=== PATIENT | male | born 1950 | race Caucasian/White ===

== ENCOUNTER 2021-08-29 11:56 | Outpatient (CLI) | payer MEDICARE, BC, SELFPAY ==
[2021-08-29 19:26] LABS: Potassium* 3.3 mmol/L (3.6-5.1)
== END 2021-08-29 11:57 | disposition home or self-care (01) ==
LOC: LONREF 11:57
PROVIDERS: PCP Family Medicine; Visit Provider Family Medicine
DX: E87.6 Hypokalemia (principal)
CPT/HCPCS: 84132

== ENCOUNTER 2021-09-16 07:51 | Outpatient (RCR) | payer MEDICARE, BC, SELFPAY ==
[2021-09-12 10:55] LABS: Sodium* 141 mmol/L (135-149)
[2021-09-12 10:56] LABS: Alanine Aminotransferase* 42 U/L (4-50); Albumin* 4.1 g/dL (3.3-5.0); Alkaline Phosphatase* 64 U/L (40-150); Aspartate Amino Transferase* 38 U/L (12-35); Bilirubin Total* 0.6 mg/dL (0.1-1.5); Blood Urea Nitrogen* 25 mg/dL (7-30); Calcium* 9.5 mg/dL (8.4-10.6); Carbon Dioxide* 33 mmol/L (20-32); Chloride* 100 mmol/L (96-114); Creatinine* 1.2 mg/dL (0.5-1.5); Estimated Glomerular Filt Rate 64.65; Glucose* 108 mg/dL (60-115); Potassium* 2.9 mmol/L (3.6-5.1); Total Protein* 6.8 g/dL (6.0-8.3)
[2021-09-12 12:01] LABS: PSA Diagnostic* 0.37 ng/mL (0.10-4.00)
--- NOTE | 2021-09-12 17:41 | ONC.NURNOTE ---
Addendum entered and electronically signed by Kimberlee Yung APRN 09/13/21 10:51: Patient and called back this am after receiving message. Pt denies muscle cramps, muscle weakness, or irregular heart beat. They confirm he is taking potassium 20 meq daily. They were instructed to call Dr. Cho, PCP, for guidance on additional potassium doses and increase intake of potassium rich foods. They state understanding. Original Note: Dr. George ordered labs and noted was a critically low potassium. Dr. George gone for day so message left on patients voicemail to follow up with primary MD since he has had this problem recently and Dr. Cho and patient have been working on it.
[2021-09-16 14:11] LABS: Potassium* 3.1 mmol/L (3.6-5.1)
--- NOTE | 2021-09-24 14:41 | URNOTE ---
Request received for prior authorization of Ena [id number]. Patient carries Medicare as primary insurance. Per [email or web address] LCD [id number] no prior authorization is required for Ena. Services are based on medical necessity and follows Medicare guidelines.
== END 2021-09-29 23:59 | disposition home or self-care (01) ==
LOC: CCIC 07:51
PROVIDERS: PCP Family Medicine; Visit Provider Internal Medicine
DX: C61 Malignant neoplasm of prostate (principal)
CPT/HCPCS: 36415; 80053; 84132; 84153; 99202; 99205

== ENCOUNTER 2021-09-26 09:21 | Outpatient (CLI) | payer MEDICARE, BC, SELFPAY ==
[2021-09-26 13:50] LABS: Chloride* 106 mmol/L (96-114); Potassium* 3.4 mmol/L (3.6-5.1); Sodium* 144 mmol/L (135-149)
[2021-09-26 13:52] LABS: Creatinine* 1.1 mg/dL (0.5-1.5); Estimated Glomerular Filt Rate 72 ml/min
[2021-09-26 13:53] LABS: Blood Urea Nitrogen* 24 mg/dL (7-30); Calcium* 8.9 mg/dL (8.4-10.6); Carbon Dioxide* 30 mmol/L (20-32); Glucose* 124 mg/dL (60-115)
== END 2021-09-26 09:22 | disposition home or self-care (01) ==
LOC: LONREF 09:22
PROVIDERS: PCP Family Medicine; Visit Provider Internal Medicine Medical Oncology
DX: C61 Malignant neoplasm of prostate (principal); E87.6 Hypokalemia
CPT/HCPCS: 80048

== ENCOUNTER 2021-10-21 09:14 | Outpatient (CLI) | payer MEDICARE, BC, SELFPAY ==
[2021-10-21 14:51] LABS: Chloride* 106 mmol/L (96-114)
[2021-10-21 14:52] LABS: Potassium* 3.2 mmol/L (3.6-5.1); Sodium* 146 mmol/L (135-149)
[2021-10-21 14:55] LABS: Blood Urea Nitrogen* 23 mg/dL (7-30); Calcium* 8.7 mg/dL (8.4-10.6); Carbon Dioxide* 32 mmol/L (20-32); Creatinine* 1.2 mg/dL (0.5-1.5); Estimated Glomerular Filt Rate 64 ml/min; Glucose* 124 mg/dL (60-115)
== END 2021-10-21 09:15 | disposition home or self-care (01) ==
LOC: LONREF 09:16
PROVIDERS: PCP Family Medicine; Visit Provider Internal Medicine Medical Oncology
DX: C61 Malignant neoplasm of prostate (principal); E87.6 Hypokalemia
CPT/HCPCS: 80048

== ENCOUNTER 2021-10-28 09:22 | Outpatient (CLI) | payer MEDICARE, BC, SELFPAY ==
[2021-10-28 15:18] LABS: Chloride* 106 mmol/L (96-114); Potassium* 3.2 mmol/L (3.6-5.1); Sodium* 144 mmol/L (135-149)
[2021-10-28 15:21] LABS: Blood Urea Nitrogen* 24 mg/dL (7-30); Carbon Dioxide* 33 mmol/L (20-32); Creatinine* 1.2 mg/dL (0.5-1.5); Estimated Glomerular Filt Rate 64 ml/min; Glucose* 141 mg/dL (60-115)
[2021-10-28 15:22] LABS: Calcium* 8.8 mg/dL (8.4-10.6)
== END 2021-10-28 09:23 | disposition home or self-care (01) ==
PROVIDERS: PCP Family Medicine; Visit Provider Internal Medicine Medical Oncology
DX: C61 Malignant neoplasm of prostate (principal); E87.6 Hypokalemia
CPT/HCPCS: 80048

== ENCOUNTER 2021-11-05 09:29 | Outpatient (CLI) | payer MEDICARE, BC, SELFPAY ==
[2021-11-05 14:26] LABS: Albumin* 3.9 g/dL (3.3-5.0)
[2021-11-05 14:27] LABS: Chloride* 105 mmol/L (96-114); Potassium* 3.1 mmol/L (3.6-5.1); Sodium* 145 mmol/L (135-149)
[2021-11-05 14:29] LABS: Aspartate Amino Transferase* 23 U/L (12-35); Bilirubin Total* 0.6 mg/dL (0.1-1.5); Carbon Dioxide* 30 mmol/L (20-32); Creatinine* 1.4 mg/dL (0.5-1.5); Estimated Glomerular Filt Rate 53 ml/min
[2021-11-05 14:30] LABS: Alanine Aminotransferase* 22 U/L (4-50); Alkaline Phosphatase* 92 U/L (40-150); Blood Urea Nitrogen* 26 mg/dL (7-30); Calcium* 8.9 mg/dL (8.4-10.6); Glucose* 251 mg/dL (60-115); Total Protein* 6.6 g/dL (6.0-8.3)
[2021-11-05 14:55] LABS: PSA Diagnostic* < 0.06 ng/mL (0.10-4.00)
== END 2021-11-05 09:30 | disposition home or self-care (01) ==
LOC: LONREF 09:29
PROVIDERS: PCP Family Medicine; Visit Provider Clinical Nurse Specialist
DX: C61 Malignant neoplasm of prostate (principal)
CPT/HCPCS: 80053; 84153

== ENCOUNTER 2021-11-18 09:19 | Outpatient (CLI) | payer MEDICARE, BC, SELFPAY ==
[2021-11-18 14:15] LABS: Chloride* 109 mmol/L (96-114)
[2021-11-18 14:16] LABS: Potassium* 3.1 mmol/L (3.6-5.1); Sodium* 143 mmol/L (135-149)
[2021-11-18 14:18] LABS: Estimated Glomerular Filt Rate 80 ml/min
[2021-11-18 14:19] LABS: Blood Urea Nitrogen* 22 mg/dL (7-30); Calcium* 8.5 mg/dL (8.4-10.6); Carbon Dioxide* 28 mmol/L (20-32); Glucose* 212 mg/dL (60-115)
== END 2021-11-18 09:20 | disposition home or self-care (01) ==
LOC: LONREF 09:19
PROVIDERS: PCP Family Medicine; Visit Provider Internal Medicine Medical Oncology
DX: C61 Malignant neoplasm of prostate (principal); E87.6 Hypokalemia
CPT/HCPCS: 80048

== ENCOUNTER 2021-12-02 09:31 | Outpatient (CLI) | payer MEDICARE, BC, SELFPAY | END 2021-12-02 09:32 | disposition home or self-care (01) | PROVIDERS: PCP Family Medicine; Visit Provider Family Medicine | DX: E87.6 Hypokalemia (principal) | CPT/HCPCS: 84132 ==

== ENCOUNTER 2021-12-09 09:41 | Outpatient (CLI) | payer MEDICARE, BC, SELFPAY ==
[2021-12-09 13:57] LABS: Chloride* 106 mmol/L (96-114); Potassium* 3.2 mmol/L (3.6-5.1); Sodium* 144 mmol/L (135-149)
[2021-12-09 13:59] LABS: Creatinine* 1.1 mg/dL (0.5-1.5); Estimated Glomerular Filt Rate 71 ml/min
[2021-12-09 14:00] LABS: Blood Urea Nitrogen* 20 mg/dL (7-30); Calcium* 9.2 mg/dL (8.4-10.6); Carbon Dioxide* 30 mmol/L (20-32); Glucose* 226 mg/dL (60-115)
== END 2021-12-09 09:42 | disposition home or self-care (01) ==
PROVIDERS: PCP Family Medicine; Visit Provider Family Medicine
DX: E87.6 Hypokalemia (principal)
CPT/HCPCS: 80048

== ENCOUNTER 2021-12-18 15:53 | Outpatient (REF) | payer MEDICARE, BC, SELFPAY ==
--- OUTSIDE RECORDS SUMMARY | 2021-12-18 15:58 | XMS_ITS | Encounter Summary ---
:1950 Author Organization [facility] Address [address] [place] [address] Care Team Providers Name Role Phone Elsewhere, Pcp Primary Care Provider Unavailable Encounter Details Date Type Department Care Team Description 09/16/2021 Hospital Encounter Department of Radiation La George, Oncology in [facility] [address] [facility] [address] [place] [address] [id number] [phone] Social History Tobacco Use Types Packs/Day Years Used Date Smoking Tobacco: Former Cigarettes 0 0 Quit : 01/30/1979 Smokeless Tobacco: Never Alcohol Use Standard Drinks/Week Comments Not Currently 0 (1 standard drink = 0.6 oz pure alcoho l) Alcohol Habits Answer Date Recorded How often do you have a drink containing alcohol? Monthly or less 06/27/2021 How many drinks containing alcohol do you have on a 1 or 2 06/27/2021 typical day when you are drinking? How often do you have six or more drinks on one Never 06/27/2021 occasion? Social Isolation Answer Date Recorded In a typical week, how many times do you talk on Patient ref used 06/27/2021 the phone with family, friends, or neighbors? How often do you get together with friends or Patient refuse d 06/27/2021 relatives? How often do you attend yarsani or hinduism 1 to 4 times per year 06/27/2021 services? Do you belong to any clubs or organizations such No 06/27/2021 as yarsani groups, unions, fraternal or athletic groups, or school groups? How often do you attend meetings of the clubs or Patient ref used 06/27/2021 organizations you belong to? Are you now , , , 06/27/2021 , never or living with a partner? Physical Activity Answer Date Recorded On average, how many days per week do you engage in moderate to 2 days 06/27/2021 strenuous exercise (like walking fast, running, jogging, dancing, swimming, biking, or other activities that cause a light or heavy sweat)? On average, how many minutes do you engage in exercise at is 20 min 06/27/2021 level? Stress Answer Date Recorded Do you feel stress - tense, restless, nervous, or anxious, N ot at all 06/27/2021 or unable to sleep at night because your mind is troubled all the time - these days? Financial Resource Strain Answer Date Recorded How hard is it for you to pay for the very basics like Not h charlette at all 06/27/2021 food, housing, medical care, and heating? Intimate Partner Violence Answer Date Recorded Within the last year, have you been afraid of your partner o r No 06/27/2021 ex-partner? Within the last year, have you been humiliated or emotionall y No 06/27/2021 abused in other ways by your partner or ex-partner? Within the last year, have you been kicked, hit, slapped, or No 06/27/2021 otherwise physically hurt by your partner or ex-partner? Within the last year, have you been raped or forced to have any No 06/27/2021 kind of sexual activity by your partner or ex-partner? Food Insecurity Answer Date Recorded Within the past 12 months, you worried that your food would Never true 06/27/2021 run out before you got money to buy more. Within the past 12 months, the food you bought just didn't N ever true 06/27/2021 last and you didn't have money to get more. Transportation Needs Answer Date Recorded In the past 12 months, has lack of transportation kept you f rom No 06/27/2021 medical appointments or from getting medications? In the past 12 months, has lack of transportation kept you f rom No 06/27/2021 meetings, work, or getting things needed for daily living? Housing Stability Answer Date Recorded In the last 12 months, was there a time when you were not ab le No 06/27/2021 to pay the mortgage or rent on time? In the last 12 months, how many places have you lived? 1 06/27/2021 In the last 12 months, was there a time when you did not hav e a No 06/27/[address] or slept in a retirement (including now)? Education Answer Date Recorded What is the highest level of school Associate degree: [employer] program 06/27/2021 you have completed or the highest degree you have received? Sex Assigned at Date Recorded Male 06/27/2021 1:28 PM CDT documented as of this encounter Medications at Time of Discharge Medication Sig Dispensed Refills Start Date End Date abiraterone (ZYTIGA) 250 Take 4 tablets 120 tablet 11 08/19/ 022 mg tabletIndications: (1,000 mg total) by Primary Malignant Neoplasm mouth daily. Take on Of Prostate (HCC) an empty stomach (1 hour before or 2 hours after food). acetaminophen (TYLENOL) Take 2 tablets 0 02/01/20 21 500 mg tablet (1,000 mg total) by mouth every 6 (six) hours as needed for pain. amLODIPine (NORVASC) 10 mg Take 10 mg by mouth 0 05/18/2020 tablet daily. aspirin [address] tablet Hold for one week 0 01/31 post-surgery bicalutamide (CASODEX) 50 Take 1 tablet (50 mg 21 tablet 0 07/30/2021 mg tablet total) by mouth daily. Take at the same time everyday. Take with or without food. blood sugar diagnostic 2 times daily. 0 (Accu-Chek Guide test strips) strips cholecalciferol, vitamin Daily 0 D3, 25 mcg (1,000 Unit) tablet diclofenac sodium Twice A Day as 0 05/18/2020 (VOLTAREN) 50 mg EC tablet needed lancets 2 times daily. 0 05/22/2020 lisinopriL Take 40 mg by mouth 0 05/18/2020 (PRINIVIL,ZESTRIL) 40 mg at bedtime. tablet metoprolol tartrate Twice A Day 0 05/18/2020 (LOPRESSOR) 50 mg tablet predniSONE (DELTASONE) 5 Take 1 tablet (5 mg 90 tablet 3 mg tabletIndications: total) by mouth Primary Malignant Neoplasm daily. Of Prostate (HCC) triamterene-hydroCHLOROthi Take 1 tablet by 0 12/2020 azide (MAXZIDE-25) 37.5-25 mouth daily. mg per tablet documented as of this encounter Plan of Treatment Upcoming Encounters Date Type Specialty Care Team Description 12/23/2021 Appointment Radiation Oncology Low George M.D. [address] [place], [place] [phone] (Wo rk) documented as of this encounter Visit Diagnoses Not on filedocumented in this encounter Care Teams Hospital Account Liaison Relationship Specialty Start Date End Date Elsewhere, Pcp PCP - General Family Medicine 01/30/21 documented as of this encounter
--- OUTSIDE RECORDS SUMMARY | 2021-12-18 15:58 | XMS_ITS | Encounter Summary ---
:1950 Author Organization [facility] Address [address] [place] [address] Care Team Providers Name Role Phone Elsewhere, Pcp Primary Care Provider Unavailable Encounter Details Date Type Department Care Team Description 09/18/2021 Hospital Encounter Department of Radiation La George, Oncology in [facility] [address] [facility] [address] [place] [phone] Social History Tobacco Use Types Packs/Day Years [...] 06/27/2021 relatives? How often do you attend yazdanism or restoration 1 to 4 times per year 06/27/2021 services? Do you belong to any clubs or organizations such No 06/27/2021 as yazdanism groups, unions, fraternal or athletic groups, or [...] place to sleep or slept in a longterm (including now)? Education Answer Date Recorded What is the highest level of school Associate degree: [email or web address] program 06/27/2021 you have completed or the [...] Radiation Oncology Low George M.D. [address] [place], [place] [phone] (Wo rk) documented as of this encounter Visit Diagnoses Not on filedocumented in this encounter Care Teams Bounty Hunter Relationship Specialty Start Date End Date Elsewhere, Pcp PCP - General Family Medicine 01/30/21 documented as of this encounter
--- OUTSIDE RECORDS SUMMARY | 2021-12-18 15:58 | XMS_ITS | Encounter Summary ---
:1950 Author Organization [facility] Address [address] [place] [address] Care Team Providers Name Role Phone Elsewhere, Pcp Primary Care Provider Unavailable Encounter Details Date Type Department Care Team Description 09/17/2021 Hospital Encounter Department of Radiation La George, Oncology in [facility] [address] [facility] [address] [place] [phone] Social History Tobacco Use Types Packs/Day Years [...] 06/27/2021 relatives? How often do you attend adventism or yazidi 1 to 4 times per year 06/27/2021 services? Do you belong to any clubs or organizations such No 06/27/2021 as adventism groups, unions, fraternal or athletic groups, or [...] place to sleep or slept in a jail (including now)? Education Answer Date Recorded What is the highest level of school Associate degree: [employer] program 06/27/2021 you have completed or the [...] Radiation Oncology Low George M.D. [address] [place], [place] [phone] (Wo rk) documented as of this encounter Visit Diagnoses Not on filedocumented in this encounter Care Teams Rice Drier Operator Relationship Specialty Start Date End Date Elsewhere, Pcp PCP - General Family Medicine 01/30/21 documented as of this encounter
--- OUTSIDE RECORDS SUMMARY | 2021-12-18 15:58 | XMS_ITS | Clinical Summary ---
:1950 Author Organization [id number] [place] [address] Care Team Providers Name Role Phone Gilberto Cho MD Primary Care Provider Allergies No known active allergies Medications Medication Sig Dispensed Refills Start Date End Date Status amLODIPine (NORVASC) 10 Take 10 mg by 0 05/18/2020 Active mg tablet mouth once daily. aspirin (ECOTRIN) 81 mg Daily 0 Active enteric coated tablet Accu-Chek Guide test 2 times daily. 0 05/22/2020 Active strips strip lisinopriL (PRINIVIL; Take 40 mg by 0 05/18/2020 Active ZESTRIL) 40 mg tablet mouth once daily. metoprolol tartrate Twice A Day 0 05/18/2020 Active (LOPRESSOR) 50 mg tablet triamterene-hydrochloroth Take 1 Tablet 0 05/09/2020 Active iazide, 37.5-25 mg, by mouth once (MAXZIDE-25) 37.5-25 mg daily. tablet Accu-Chek Softclix 2 times daily. 0 05/22/2020 Active Lancets diclofenac enteric coated Twice A Day as 0 Active (VOLTAREN) 50 mg tablet needed cholecalciferol (VITAMIN Daily 0 Active D3) 1,000 unit tablet Active Problems Problem Noted Date Adenomatous colon polyp 03/15/2012 Overview: Colonoscopy 03/2012 polyp repeat in 5 yea rs Colonoscopy 03/2017 polyp, repeat in 5 ye ars Immunizations Name Administration Dates Next Due Zoster (Zostavax-ZVL, live) 11/02/2013 Social History Tobacco Use Types Packs/Day Years Used Date Former Smoker Cigarettes Smokeless Tobacco: Never Used Tobacco Cessation: Counseling Given: Yes Alcohol Use Standard Drinks/Week Comments Not Currently 0 (1 standard drink = 0.6 oz pure alcoho l) Sex Assigned at Date Recorded Not on file Obstetrics History Last Filed Vital Signs Vital Sign Reading Time Taken Comments Blood Pressure 144/86 07/02/2020 9:32 AM CDT Pulse 53 07/02/2020 9:32 AM CDT Temperature - - Respiratory Rate 16 07/02/2020 9:32 AM CDT Oxygen Saturation 99% 07/02/2020 9:32 AM CDT Inhaled Oxygen - - Concentration Weight 89.6 kg (197 lb 9.6 07/02/2020 9:32 AM Pt weighe d with shoes oz) CDT on. Height - - Body Mass Index - - Plan of Treatment Health Maintenance Due Date Last Done Comments COVID-19 vaccine series (#1) [birth year]13/1950 Tdap 1960 Depression screening for age 12+ 1961 BMI (ht and wt on same day) for 10/12/1967 age 18+ Hepatitis C screening for age 0810/12/1967 18-79 Tetanus booster 1969 Lipids for age 45-75 1994 Zoster (shingles) series for age 1012/28/2013 11/02/2013 50+ (2 of 3) Medicare Wellness for age 65+ 2014 Pneumococcal series for age 65+ (1 2014 - PCV) Influenza for age 65+ 10/31/2021 Colonoscopy through age 75 03/17/2022 03/17/2017, 8, 02/17/2017, Additional history exists Results Not on filefrom Last 3 Months Insurance Payer Benefit Plan / Subscriber ID Effective Dates Phone Addre ss Type Group BLUE CROSS MR BLUE CROSS [id number] 2016-Presen [address] [address] [facility], [place] MR PB ONLY [phone] (Home) [place] [id number] Care Teams Oilseed Meat Presser Relationship Specialty Start Date End Date Gilberto Cho MD PCP - General Family Practice 03/17/[address] [place] [address]
--- OUTSIDE RECORDS SUMMARY | 2021-12-18 15:58 | XMS_ITS | Encounter Summary ---
:1950 Author Organization [facility] Address [address] [place] [id number] Care Team Providers Name Role Phone Elsewhere, Pcp Primary Care Provider Unavailable Reason for Referral Radiation Therapy (Routine) - Authorized Specialty Diagnoses / Procedures Referred By Contact Refer red To Contact Diagnoses Primary Malignant Neoplasm Of Prostate (HCC) [place] George M.D. [facility] Procedures Management Visit [address] [place] [phone] Referral ID Status Reason Start Date Expiration Date Visits V isits Requested Authorized [id number] Authorized 07/25/2021 07/25/2022 10 10 Reason for Visit Radiation Therapy (Routine) - Authorized Specialty Diagnoses / Procedures Referred By Contact Refer red To Contact Diagnoses Primary Malignant Neoplasm Of Prostate (HCC) London George M.D. [facility] Procedures Management Visit [address] [place] [address] [phone] Referral ID Status Reason Start Date Expiration Date Visits V isits Requested Authorized [id number] Authorized 07/25/2021 07/25/2022 10 10 Encounter Details Date Type Department Care Team Description 09/11/2021 - Hospital Encounter Department of [place], Primary Malignant 09/12/2021 Radiation Oncology [place] Costello M.D. Neoplasm Of Prostate in [place], [address] [facility] (HCC) [place], [place] [address] [facility] [address] [place], [place] [phone] (Work) [phone] Social History Tobacco Use Types Packs/Day Years [...] 06/27/2021 relatives? How often do you attend religious or voodoo 1 to 4 times per year 06/27/2021 services? Do you belong to any clubs or organizations such No 06/27/2021 as religious groups, unions, fraternal or athletic groups, or [...] minutes do you engage in exercise at th is 20 min 06/27/2021 level? Stress Answer [...] place to sleep or slept in a halfway (including now)? Education Answer Date Recorded What is the highest level of school Associate degree: academ [employer] program 06/27/2021 you have completed or the highest degree you have received? 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 Take on Of Prostate (HCC) an empty stomach (1 hour before or 2 hours after food). amLODIPine (NORVASC) 10 mg Take 10 mg [...] (MAXZIDE-25) 37.5-25 mouth daily. mg per tablet acetaminophen (TYLENOL) Take 2 tablets 0 02/01/20 21 500 mg tablet (1,000 mg total) by mouth every 6 (six) hours as needed for pain. documented as of this encounter Progress Notes [place] George M.D. - 09/11/2021 10:00 AM CDT SUBJECTIVE REASON FOR VISIT Evaluation for side effects while receiving radiation treatment for 1. Primary Malignant Neoplasm Of Prostate (HCC) SUPERVISED BY: Dr. George HISTORY OF PRESENT ILLNESS Mr. Cory Barton is a 70-year-old male with persistently positive PSA following prostatectomy. ??He is now undergoing salvage radiotherapy with a long course of ADT (aiming for 18-36 months ofandrogen deprivation therapy).? Treatment Course: 1xProstBed Plan ID Fractions Dose / Fraction (cGy) Dose Treated (cGy) Dose Planned (cGy) First Treatment Last Treatment Elapsed Days [id number] 200 5000 5000 08/05/2021 09/09/2021 35 [id number] 09/10/2021 09/11/2021 1 Treatment Site Summary [id number] 08/05/2021 09/11/2021 37 Course Summary 08/05/2021 09/11/2021 37 The patient was seen and examined today with Dr. George. The patient reports doing well overall. Nocturia is occurring 4 times at night. He has not started Ibuprofen at bedtime. He denies diarrhea, dysuria, hematuria or rectal bleeding. He has not started abiraterone yet. He has been taken off of spironolactone by his primary care provider due to potential interaction with abiraterone. PATIENT REPORTED SYMPTOM SCREEN FATIGUE (Scale: 0 = no fatigue; 10 = worst fatigue you can imagine): 0 PAIN (Scale: 0 = no pain; 10 = worst pain you can imagine): 0 OVERALL QUALITY OF LIFE (Scale: 0 = as bad as can be; 10 = as good as can be): 10 OBJECTIVE Temp 36.4 ??C (Temporal) Wt 86.5 kg BMI 30.29 kg/m?? PHYSICAL EXAM General: Alert and oriented in no apparent distress. ASSESSMENT / PLAN #1 Stage IIIC (pT3a, pN0, cM0, PSA: 5.3, Grade Group: 5) adenocarcinoma the prostate, status post margin negative prostatectomy on February 10, 2021 with persistently positive PSA of 1.9 ng/mL most recently on July 04, 2021?? #2 Choline PET/CT scan with choline avid right mid and distal external iliac lymph nodes and distal left external iliac lymph nodes?? #3 Androgen deprivation therapy initiated with bicalutamide 50 mg daily for 3 weeks on July 30, 2021,a leuprolide 22.5 mg injection??on August 05, 2021 at [facility] #4 Stress urinary incontinence following prostatectomy, scant in amount?? #5 Erectile dysfunction preceding prostatectomy?? #6 Salvage intensity modulated radiotherapy to prostate fossa, PET + pelvic lymph nodes initiated onAugust 05, 2021; anticipated date of completion is on September 18, 2021 #7 Osteopenia on bone density scan from August 07, 2021 #[address] Arnold on August 08, 2021 The patient is tolerating radiation treatment well overall. He can trial 1-2 tablets of Ibuprofen atbedtime to help with nocturia. Ibuprofen is to be taken with food to avoid stomach upset. His primary provider, Dr. Cho is managing his hypokalemia. Patient has appointment with Dr. White on September 16 to follow up on abiraterone. He will continue with radiation treatment as planned. Radiation Oncology [place] can be contacted at anytime for any questions or concerns. Signed by: Chey Mcghee R.N. 09/11/2021 10:15 AM CDT I saw and evaluated the patient and participated in the [place] portions of the service. I reviewed the documentation of Chey Mcghee R.N. and agree with the findings and plan. The patient appears well onexam. He will begin low-dose ibuprofen to see if this will help with his nocturia. He will continue with treatment as planned. Signed by: [place] George M.D. 09/12/2021 5:35 PM CDT [facility] [address] [place] [id number] documented in this encounter Plan of Treatment Upcoming Encounters Date Type Specialty Care Team Description 12/23/2021 Appointment Radiation Oncology [place] George M.D. 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
--- OUTSIDE RECORDS SUMMARY | 2021-12-18 15:58 | XMS_ITS | Encounter Summary ---
:1950 Author Organization [facility] Address [address] [place] [address] Care Team Providers Name Role Phone Elsewhere, Pcp Primary Care Provider Unavailable Encounter Details Date Type Department Care Team Description 09/13/2021 Hospital Encounter Department of Radiation [place], Oncology in [facility] [address] [facility] [address] [place] [phone] Social History Tobacco Use Types Packs/Day Years [...] 06/27/2021 relatives? How often do you attend taoism or jewish 1 to 4 times per year 06/27/2021 services? Do you belong to any clubs or organizations such No 06/27/2021 as taoism groups, unions, fraternal or athletic groups, or [...] for the very basics like Not h chalrette at all 06/27/2021 food, housing, medical care, [...] place to sleep or slept in a usp (including now)? Education Answer Date Recorded What is the highest level of school Associate degree: [employer] program 06/27/2021 you have completed or the [...] Radiation Oncology Low George M.D. [address] [place], [place] [phone] (Wo rk) documented as of this encounter Visit Diagnoses Not on filedocumented in this encounter Care Teams Fund Manager Relationship Specialty Start Date End Date Elsewhere, Pcp PCP - General Family Medicine 01/30/21 documented as of this encounter
--- OUTSIDE RECORDS SUMMARY | 2021-12-18 15:58 | XMS_ITS | Encounter Summary ---
:1950 Author Organization [facility] Address [address] [place] [address] Care Team Providers Name Role Phone Elsewhere, Pcp Primary Care Provider Unavailable Reason for Visit Reason Comments Labs Only Encounter Details Date Type Department Care Team Description 11/18/2021 Clinical Communication Department of Elly Cohen Labs Only Oncology in [place], [place] [address] [facility] [address] [place] [phone] Social History Tobacco Use Types Packs/Day Years [...] 06/27/2021 relatives? How often do you attend bahai or temple 1 to 4 times per year 06/27/2021 services? Do you belong to any clubs or organizations such No 06/27/2021 as bahai groups, unions, fraternal or athletic groups, or [...] highest level of school Associate degree: academ [employer] program 06/27/2021 you have completed or the highest degree you have received? Sex Assigned at Date Recorded Male 06/27/2021 1:28 PM CDT documented as of this encounter Miscellaneous Notes Telephone Encounter - Nayely Loza M.S.N., R.N. - 11/19/2021 9:03 AM CDT Labs verified. He is receiving care in [place], Dr. White managing. No further action needed. Telephone Encounter - Elyssa Tinoco - 11/19/2021 7:53 AM CDT Labs have been entered and are ready for review. documented in this encounter Plan of Treatment Upcoming Encounters Date Type Specialty Care Team Description 12/23/2021 Appointment Radiation Oncology [place] George M.D. [address] [place], [place] [phone] (Wo rk) documented as of this encounter Procedures Procedure Name Priority Date/Time Associated Diagnosis Comme nts HEMATOLOGY/ONCOLOGY Routine 11/18/2021 9:28 AM Re sults for this - BLOOD, EXTERNAL CDT procedure are in LAB RESULTS the results section. documented in this encounter Results (ABNORMAL) Hematology/Oncology - Blood, External Lab Results (11/18/2021 9:28 AM CDT) P athologist Signature EXT Sodium 143 135 - 149 OTHER mmol/L (SPECIFY IN TRAFFIC INCIDENT MANAGEMENT MANAGER) EXT Potassium 3.1 (A) 3.6 - 5.1 OTHER (SPECIFY IN TRAFFIC INCIDENT MANAGEMENT MANAGER) EXT Calcium, 8.5 8.4 - 10.6 OTHER Total (SPECIFY IN TRAFFIC INCIDENT MANAGEMENT MANAGER) EXT Creatinine 1.0 0.5 - 1.5 OTHER mg/dL (SPECIFY IN TRAFFIC INCIDENT MANAGEMENT MANAGER) EXT Chloride 109 96 - 114 OTHER (SPECIFY IN TRAFFIC INCIDENT MANAGEMENT MANAGER) EXT BUN (Blood 22 7 - 30 OTHER Urea Nitrogen) (SPECIFY IN TRAFFIC INCIDENT MANAGEMENT MANAGER) Specimen (Source) Anatomical Collection Method Collection Time Re ceived Time Location / / Volume Laterality Blood 11/18/2021 9:28 AM CDT Narrative This result has an attachment that is no t available. Historical Provider LAB BLOOD NON ADD-ON Performing Organization Address City/State/ZIP Code Phon e Number OTHER (SPECIFY IN TRAFFIC INCIDENT MANAGEMENT MANAGER) OTHER (SPECIFY IN TRAFFIC INCIDENT MANAGEMENT MANAGER) N/A documented in this encounter Visit Diagnoses Not on filedocumented in this encounter Care Teams Television Parts Tester Relationship Specialty Start Date End Date Elsewhere, Pcp PCP - General Family Medicine 01/30/21 documented as of this encounter
--- OUTSIDE RECORDS SUMMARY | 2021-12-18 15:58 | XMS_ITS | Encounter Summary ---
:1950 Author Organization [facility] Address [address] [place] [address] Care Team Providers Name Role Phone Elsewhere, Pcp Primary Care Provider Unavailable Encounter Details Date Type Department Care Team Description 09/12/2021 Hospital Encounter Department of Radiation [place], Oncology in [facility] [address] [facility] [address] [place] [phone] Social History Tobacco Use Types Packs/Day Years [...] 06/27/2021 relatives? How often do you attend yazidism or quaker 1 to 4 times per year 06/27/2021 services? Do you belong to any clubs or organizations such No 06/27/2021 as yazidism groups, unions, fraternal or athletic groups, or [...] the highest level of school Associate degree: [employer] program 06/27/2021 you have completed or the [...] Radiation Oncology Low George M.D. 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
--- OUTSIDE RECORDS SUMMARY | 2021-12-18 15:58 | XMS_ITS | Encounter Summary ---
:1950 Author Organization [facility] Address [address] [place] [address] Care Team Providers Name Role Phone Elsewhere, Pcp Primary Care Provider Unavailable Reason for Referral Outpatient (Routine) - Authorized Specialty Diagnoses / Procedures Referred By Contact Refer red To Contact Radiation Oncology [place] George M .D. [facility] [address] [place] [address] Referral ID Status Reason Start Date Expiration Date Visits V isits Requested Authorized [id number] Authorized 09/18/2021 09/18/2022 1 1 Scheduling Instructions Please schedule 2-3 days after H lab a ppointment Radiation Therapy (Routine) - Authorized Specialty Diagnoses / Procedures Referred By Contact Refer red To Contact Diagnoses Primary Malignant Neoplasm Of Prostate (HCC) [place] George M.D. [facility] Procedures Management Visit [address] [place] [address] Referral ID Status Reason Start Date Expiration Date Visits V isits Requested Authorized [id number] Authorized 07/25/2021 07/25/2022 10 10 Reason for Visit Radiation Therapy (Routine) - Authorized Specialty Diagnoses / Procedures Referred By Contact Refer red To Contact Diagnoses Primary Malignant Neoplasm Of Prostate (HCC) [place] George M.D. [facility] [place] [facility] Procedures Management Visit [address] [place] [address] Referral ID Status Reason Start Date Expiration Date Visits V isits Requested Authorized [id number] Authorized 07/25/2021 07/25/2022 10 10 Encounter Details Date Type Department Care Team Description 09/18/2021 Hospital Encounter Department of London George Prostate Specific Antigen Following Treatment For Malignant Cancer Of Prostate (Primary Dx); Radiation Oncology Osmin Costello Primary Malignant Neoplasm Of Prostate ( HCC) in [place], [facility] [address] [place], [place] [address] [facility] [address] [place], [place] [phone] (Work) [phone] Social History Tobacco Use Types Packs/Day Years [...] 06/27/2021 relatives? How often do you attend zoroastrian or yarsani 1 to 4 times per year 06/27/2021 services? Do you belong to any clubs or organizations such No 06/27/2021 as zoroastrian groups, unions, fraternal or athletic groups, or [...] place to sleep or slept in a senior living (including now)? Education Answer Date Recorded What is the highest level of school Associate degree: academ [employer] program 06/27/2021 you have completed or the highest degree you have received? Sex Assigned at Date Recorded Male 06/27/2021 1:28 PM CDT documented as of this encounter Last Filed Vital Signs Vital Sign Reading Time Taken Comments Blood Pressure - - Pulse - - Temperature 37.1 ??C (98.7 ??F) 09/18/2021 10:06 AM CDT Respiratory Rate - - Oxygen Saturation - - Inhaled Oxygen Concentration - - Weight 87.4 kg (192 lb 10.9 oz) 09/18/2021 10:06 AM CDT Height - - Body Mass Index 30.6 01/30/2021 11:48 AM [employer] documented in this encounter Medications at Time [...] Hold for one week 0 01/31 post-surgery blood sugar diagnostic 2 times daily. 0 1 (Accu-Chek Guide test strips) strips cholecalciferol, vitamin [...] Primary Malignant Neoplasm daily. Of Prostate (HCC) acetaminophen (TYLENOL) Take 2 tablets 0 02/01/20 21 500 mg tablet (1,000 mg total) by mouth every 6 (six) hours as needed for pain. bicalutamide (CASODEX) 50 Take 1 tablet (50 mg 21 tablet 0 07/30/2021 mg tablet total) by mouth daily. Take at the same time everyday. Take with or without food. triamterene-hydroCHLOROthi Take 1 tablet by 0 12/2020 azide (MAXZIDE-25) 37.5-25 mouth daily. mg per tablet documented as of this encounter Progress Notes London George M.D. - 09/18/2021 10:00 AM CDT SUBJECTIVE REASON FOR VISIT Evaluation for side effects while receiving radiation treatment for 1. Primary Malignant Neoplasm Of Prostate (HCC) SUPERVISED BY: Dr. George HISTORY OF PRESENT ILLNESS Mr. Cory Barton is a 70-year-old male with persistently positive PSA following prostatectomy. He is now undergoing salvage radiotherapy with a long course of ADT (aiming for 18-36 months of androgen deprivation therapy). Treatment Course: 1xProstBed Plan ID Fractions Dose / Fraction (cGy) Dose Treated (cGy) Dose Planned (cGy) First Treatment Last Treatment Elapsed Days [id number] 200 5000 5000 08/05/2021 09/09/2021 35 [id number] 200 1400 1400 09/10/2021 09/18/2021 8 Treatment Site Summary [id number] 08/05/2021 09/18/2021 44 Course Summary 08/05/2021 09/18/2021 44 Oncology History Overview Note January 30, 2021: Robot-assisted, laparoscopic, bilateral non-nerve sparing radical prostatectomy and bilateral pelvic lymphadenectomy. Valencia 4+5, pT3a N0 R0. Prep PSA 5.3 July 02, 2021: PSA 1.9. PET-CT choline avid mid right external iliac and distal left external iliac lymph node, and in the distal right external iliac region. End of June Casodex started followed by leuprolide early July Primary Malignant Neoplasm Of Prostate (HCC) 07/08/2019 Other 07/08/2019: PSA 3.88 ng/mL 05/16/2020: PSA 5.35 ng/mL 08/10/2020 Other Urology consultation with Dr. Oseas Oswald. Digital rectal examination demonstrated that the prostate was approximately 50-60 g in size, smooth in consistency, symmetrical, nontender. There was a prostate nodule present at the left apex, raised and firm, measuring 8-10 mm. Seminal vesicles were not p alpable. Recommended proceeding with an MRI followed by a biopsy. 08/17/2020 Imaging MRI of the prostate demonstrated a prostate volume of 79 cc. There was an approximately 22 x 13 x 15 mm T2 hypointense lesion in the left posterior lateral mid apical peripheral zone, suspicious for clinically significant prostate cancer (PI-RADS 5). Marked nodular hypertrophy without a definite suspi cious lesion in the transition zone. Broad capsular contact of the left peripheral zone lesion with capsular bulging and irregularity, worrisome for extracapsular extension and neurovascular bundle involvement. No seminal vesicle invasion. No enlarged pelvic lymph nodes. No suspicious bone lesions. 08/30/2020 Biopsy/Pathology Prostate biopsy was performed by Dr. Oswald. Prostate volume was 87.3 cc. Hypoechoic lesion was identified in the peripheral zone at the left apex, extended slightly on the right. PATHOLOGY: A. Right prostate core biopsies: Benign prostate tissue. B. Left prostate core biopsies: Prostate adenocarcinoma, Douglas grade 3 + 3 (grade group 1), less than 1 mm in greatest linear dimension involving 1 of 6 cores / core-like fragments and involving lessthan 5% of the submitted tissue. C. Left apex prostate core biopsies: Prostate adenocarcinoma, Douglas grade 3 + 4 (grade group 2), 2mm in greatest linear dimension involving 2 of 4 cores and involving less than 5% of the submitted tissue. 01/30/2021 Surgery and Procedures Robotic-assisted radical prostatectomy and bilateral pelvic dissection was performed by Dr. Lenny Gaspar. PATHOLOGY: A. Lymph nodes, bilateral pelvic, dissection: Multiple (6) lymph nodes are negative for metastatic carcinoma. B. Prostate gland, radical prostatectomy: Adenocarcinoma (Douglas pattern 4+5, grade group 5) is identified forming a dominant mass (3.1 x 1.9 x 1.8 cm) in the left apex and posterior prostate. The tumor is not confined to the prostate with extraprostatic extension into soft tissue in the region of the left posterior prostate. The seminal vesicles are negative for tumor. All surgical margins are negative for tumor. SYNOPTIC REPORT: Prostate Procedure: Radical prostatectomy Prostate Size: 108 gram, 6.2 (S-I) x 6.4 (A-P) x 6.6 (R-L) cm Histologic Type: Acinar adenocarcinoma Histologic Grade Grade Group and Valencia Score Grade Group 3 (Valencia Score 4+5=9) Minor Tertiary Pattern 5 (less than 5%): Not applicable Percentage of Pattern 4 in Valencia score 7: Not applicable Intraductal Carcinoma (IDC): Present Cribriform Glands: Present Treatment Effect: No known pre-surgical therapy Tumor Quantitation Greatest dimension of dominant nodule: 31 mm Location: Left posterior Extraprostatic Extension: Present, non-focal Urinary Bladder Neck Invasion: Not identified Seminal Vesicle Invasion: Not identified Lymphovascular Invasion: Not identified Margins: All margins negative for invasive carcinoma. Regional Lymph Nodes Status All Regional Lymph Nodes Negative for Tumor Number of Lymph Nodes Examined: 6 Distant Metastasis. Distant Site(s) Involved: Not applicable Pathologic Staging (AJCC, 8th edition) TNM Descriptors: Not applicable pT Category: pT3a pN Category: pN0 pM Category: Not applicable Additional Pathologic Findings: None identified 06/27/2021 Other 06/27/2021: PSA 1.9 ng/mL 07/02/2021: PSA 1.9 ng/mL 07/02/2021 Imaging C11 choline PET-CT scan demonstrated extruded tracer within the bladder, but no obvious abnormal uptake in the prostatectomy bed. Small mildly choline avid lymph nodes in the mid right external iliac and distal left external iliac regions, concerning for metastases. Additional more intense choline avid distal external right iliac lymph nodes. No other choline avid lymph nodes in the abdomen or pelvis. No choline avid bone lesions identified. MRI demonstrated postoperative changes of prostatectomy. Mild increased perfusion to the left of theurethra without a discrete lesion identified, nonspecific. Indeterminate/equivocal for local recurrence. Negative for metastatic lymph nodes. Negative for metastatic bone lesions. 07/22/2021 Other Radiation Oncology consultation with Dr. Huber Newman who recommended a combined approach of salvage radiotherapy (to the prostatic fossa and regional pelvic lymph nodes) plus long-term androgen deprivation therapy. His inclination was to recommend a minimum of 3 years (or possibly indefinite period of time) of androgen deprivation therapy. He also discussed that an additional systemic treatment such as abiraterone is likely indicated and the patient will need a referral to Medical Oncology. The patient would like to pursue radiotherapy in [place]. A referral was placed. He left the arrangementof ADT and referral to Medical Oncology to Dr. George. 08/05/2021 - Radiation Therapy Radiation Therapy Treatment Details (Noted on 07/25/2021) Site: Prostate - Bed Technique: No technique specified Goal: Curative Planned Treatment Start Date: 08/05/2021 08/07/2021 Imaging DEXA bone density scan demonstrated osteopenia. T-score of -1.9 in the right and left femoral neck. The patient was seen and examined today with Dr. George. The patient reports doing well overall. Nocturia is occurring 4 times at night. Baseline nocturia is2 times a night. He trialed taking 400 mg of Ibuprofen once at bedtime and did not notice improvement in nocturia. Diarrhea is minimal in nature. He denies dysuria, urinary urgency, incontinence, urinary retention, hot flashes, fatigue, hematuria or rectal bleeding. He has not started abiraterone yet due to continued issues with potassium level. He has been taken off of spironolactone [...] good as can be): 10 OBJECTIVE Temp 37.1 ??C (Temporal) Wt 87.4 kg BMI 30.60 kg/m?? PHYSICAL EXAM General: Alert and oriented in no apparent distress. ASSESSMENT / PLAN #1 Stage IIIC (pT3a, pN0, cM0, PSA: 5.3, Grade Group: 5) adenocarcinoma the prostate, status post margin negative prostatectomy on February 10, 2021 with persistently positive PSA of 1.9 ng/mL most recently on July 04, 2021 #2 Choline PET/CT scan with choline avid right mid and distal external iliac lymph nodes and distal left external iliac lymph nodes #3 Androgen deprivation therapy initiated with bicalutamide 50 mg daily for 3 weeks on July 30, 2021,a leuprolide 22.5 mg injection on August 05, 2021 at [facility] #4 Stress urinary incontinence following prostatectomy, scant in amount #5 Erectile dysfunction preceding prostatectomy #6 Salvage intensity modulated radiotherapy to prostate fossa, PET + pelvic lymph nodes initiated onAugust 05, 2021; completed on September 18, 2021 #7 Osteopenia on bone density scan from August 07, 2021 #[address] Arnold on August 08, 2021 The patient is tolerating radiation treatment well overall. Radiation related side effects should start healing in the coming weeks. His primary provider, Dr. Cho is managing his hypokalemia. Patient met with Dr. White on September 16 to follow up on abiraterone. He is due for his next Leuprolide injection on October 29, 2021. We will ask our desk to confirm that [facility] schedules Leuprolide injection on October 29, 2021. Dr. George will see patient in follow up visit in 3 months. We will check PSA and testosterone at [facility] a few days before follow up visit. Radiation Oncology [place] can be contacted at anytime for any questions or concerns. Toxicities reviewed with Dr. George today. Signed by: Chey Mcghee R.N. 09/18/2021 11:38 AM CDT I saw and evaluated the patient and participated in the [place] portions of the service. I reviewed the documentation of Chey Mcghee R.N. and agree with the findings and plan. The patient appears well onexam. He is here today with his . He completed treatment as planned today. He has tolerated it well with anticipated side effects including grade 1 diarrhea and grade 1 urinary frequency. He is duefor another leuprolide injection on October 29, 2021. He is waiting to start abiraterone until his potassium normalizes. He is following with Dr. White in this regard. I will see him in follow-up in 3 months with a pre-visit PSA and testosterone level drawn at [facility] a few days prior. He verbalized satisfaction with this plan. Signed by: [place] George M.D. 09/18/2021 6:46 PM CDT [facility] [address] [place] [address] documented in this encounter Miscellaneous Notes Addendum Note - Emma Rodriguez, [email or web address] - 09/18/2021 10:00 AM CDT Encounter addended by: Emma Rodriguez C.NGraeme on: 09/19/2021 8:08 AM Actions taken: Letter saved documented in this encounter Plan of Treatment Upcoming Encounters Date Type Specialty Care Team Description 12/23/2021 Appointment Radiation Oncology [place] George M.D. [address] [place], [place] [phone] (Wo rk) Scheduled Orders Name Type Priority Associated Order Schedule Diagnoses Management Visit Radiation Oncology Routine Primary Malignant Once for 1 Neoplasm Of Occurrences sta rting Prostate (HCC) 09/18/2021 un til 09/18/2021 PSA Lab Routine Rising Prostate Expected: (Prostate-Specific Specific Antigen (Appr oximate), Antigen), Following Treatment Expires: 09/18/2022 Diagnostic For Malignant Cancer Of Prostate Testosterone, Total Lab Routine Rising Prostate Expec humble: 12/19/2021 by Mass Specific Antigen (Approximat e), Spectrometry, Serum Following Treatment E xpires: 09/18/2022 For Malignant Cancer Of Prostate Scheduled Referrals Name Type Priority Associated Diagnoses Order S chedule Radiation Oncology Outpatient Referral Routine Ex pected: office visit 12/19/2021 (clinic) (Approximate), Expires: 09/18/2022 documented as of this encounter Visit Diagnoses Diagnosis Rising Prostate Specific Antigen Followi ng Treatment For Malignant Cancer Of Prostate - Primary Primary Malignant Neoplasm Of Prostate ( HCC) documented in this encounter Care Teams Study Assistant Relationship Specialty Start Date End Date Elsewhere, Pcp PCP - General Family Medicine 01/30/21 documented as of this encounter
--- OUTSIDE RECORDS SUMMARY | 2021-12-18 15:58 | XMS_ITS | Clinical Summary ---
:1950 Author Organization [facility] Address [address] [place] [address] Care Team Providers Name Role Phone Elsewhere, Pcp Primary Care Provider Unavailable Source Comments Patient records contain information from all sites at [facility]. For routine questions regarding patient records, call [phone] during business hours, M-F 8:00 AM - 5:00 PM Central Time. Record requests for emergency care only can be directed to [phone] at any time.[facility] Allergies No known active allergies Medications Medication Sig Dispensed Refills Start Date End Date Status amLODIPine (NORVASC) 10 Take 10 mg by 0 05/18/2020 Active mg tablet mouth daily. blood sugar diagnostic 2 times daily. 0 05/22/2020 Active (Accu-Chek Guide test strips) strips cholecalciferol, Daily 0 Act elyse vitamin D3, 25 mcg (1,000 Unit) tablet diclofenac sodium Twice A Day as 0 05/18/2020 Active (VOLTAREN) 50 mg EC needed tablet lancets 2 times daily. 0 05/22/2020 Acti ve lisinopriL Take 40 mg by 0 05/18/2020 Acti ve (PRINIVIL,ZESTRIL) 40 mouth at bedtime. mg tablet metoprolol tartrate Twice A Day 0 05/18/2020 Active (LOPRESSOR) 50 mg tablet triamterene-hydroCHLORO Take 1 tablet by 0 Active thiazide (MAXZIDE-25) mouth daily. 37.5-25 mg per tablet acetaminophen (TYLENOL) Take 2 tablets 0 01/31/2021 Active 500 mg tablet (1,000 mg total) by mouth every 6 (six) hours as needed for pain. Additional Information Patient not taking. Reported on 08/07/[address] tablet Hold for one week 0 02/01/20 21 Active post-surgery bicalutamide (CASODEX) 50 Take 1 tablet (50 mg 21 tablet 0 Active mg tablet total) by mouth daily. Take at the same time everyday. Take with or without food. Additional Information Patient not taking. Reported on 09/18/2021 abiraterone (ZYTIGA) 250 mg Take 4 tablets 120 tablet 11 2021 Active tabletIndications: Primary (1,000 mg total) by Malignant Neoplasm Of Prostate mouth daily. Take on (HCC) an empty stomach (1 hour before or 2 hours after food). predniSONE (DELTASONE) 5 mg Take 1 tablet (5 mg 90 tablet 3 Active tabletIndications: Primary total) by mouth Malignant Neoplasm Of Prostate daily. 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 on 09/06/2020 Pathologic stage from 01/30/2021: Stage I IIC (pT3a, pN0, cM0, PSA: 5.3, Grade Group: 5) - Unsigned Polyp Colon Adenomatous 03/15/2012 Overview: Formatting of this note might be differe nt from the original. Colonoscopy 03/2012 polyp repeat in 5 yea rs Colonoscopy 03/2017 polyp, repeat in 5 ye ars Encounters Date Type Specialty Care Team Description 11/18/2021 Clinical Communication Oncology Elly Cohen s Only L, R.N. 09/18/2021 Hospital Encounter Radiation London George Rising Prostate Specific Antigen Following Treatment For Malignant Cancer Of Prostate (Primary Dx); Oncology Osmin Costello Primary Maligna nt Neoplasm Of Prostate (HCC) 09/18/2021 Hospital Encounter London Farnsworth M.D. 09/18/2021 Documentation London Farnsworth M.D. 09/17/2021 Hospital Encounter London Farnsworth M.D. from Last 3 Months Immunizations Name Administration Dates Next Due HZV (ZOSTAVAX) 11/02/2013 Influenza high dose QV(65 years or older) 11/11/2020, 2019 (PF) PCV13 02/14/2016 PPSV23 07/21/2017 RZV (SHINGRIX) 03/07/2019, 08/04/2018 Tdap 02/17/2017 influenza high dose (65 years or older) 12/09/2018, 12/30/19 18, 11/27/2016 (PF) Family History Medical History Relation Name Comments Colon cancer Father nhsr Prostate cancer Maternal Grandfather rk Relation Name Status Comments Father nhsr Maternal Grandfather rk Social History Tobacco Use Types Packs/Day Years [...] 06/27/2021 relatives? How often do you attend methodist or mormonism 1 to 4 times per year 06/27/2021 services? Do you belong to any clubs or organizations such No 06/27/2021 as methodist groups, unions, fraternal or athletic groups, or [...] place to sleep or slept in a long term (including now)? Education Answer Date Recorded What is the highest level of school Associate degree: [employer] program 06/27/2021 you have completed or the highest degree you have received? Sex Assigned at Date Recorded Male 06/27/2021 1:28 PM CDT Last Filed Vital Signs Vital Sign Reading Time Taken Comments Blood Pressure 142/72 07/30/2021 9:48 AM CDT Pulse 59 07/30/2021 9:48 AM CDT Temperature 37.1 ??C (98.7 ??F) 09/18/2021 10:06 AM CDT Respiratory Rate 15 01/31/2021 12:30 PM CEREAL MAKER Oxygen Saturation 93% 01/31/2021 12:30 PM CEREAL MAKER Inhaled Oxygen Concentration - - Weight 87.4 kg (192 lb 10.9 oz) 09/18/2021 10:06 AM CDT Height 169 cm (5' 6.54) 01/30/2021 11:48 AM CEREAL MAKER Body Mass Index 30.6 01/30/2021 11:48 AM CEREAL MAKER Plan of Treatment Upcoming Encounters Date Type Specialty Care Team Description 12/23/2021 Appointment Radiation Oncology Low George M.D. [address] [place], [place] [phone] (Wo rk) Health Maintenance Due Date Last Done Comments Abdominal Aortic Aneurysm (AAA) [address] Colonography 1950 Cologuard 1950 Colonoscopy 1950 Colorectal Cancer Surveillance 1950 Hepatitis C Screening 1950 Depression Screening (Annual 03/02/2021 PHQ-2) Office Visit for Blood Pressure 04/23/2021 01/21/2021 Check / Re-check COVID-19 Vaccine (5 - Booster for 09/03/2021 07/09/2021, , Pfizer series) 05/29/2020, Additional history exists Influenza Vaccine (#1) 2021 11/11/2020, 11/21/2019, 12/09/2018, Additional history exists Fasting Glucose for Diabetes 01/31/2022 01/31/2021, 021 Screening Creatinine Level 11/18/2022 11/18/2021, 01/31/2021, 01/21/2021 Potassium Level 11/18/2022 11/18/2021, 01/31/2021, 01/21/2021 Sodium Level 11/18/2022 11/18/2021, 01/31/2021, 01/21/2021 DTaP,Tdap,and Td Vaccines (2 - Td 02/17/2027 02/17/2017 or Tdap) Pneumococcal vaccine (65+ years) Completed 07/21/2017, Zoster Vaccines Completed 03/07/2019, 08/04/2018, 11/02/2013 Fall Risk Screen (Annual) Completed 08/12/2021 Medical Devices Implanted Type Area Loss Control Technician Device Identifier Shelf Model / Expiration Serial / Date Lot Clp Hmol Plmr Lg - [id number] Hardware [employer] 2 [id number] 09/23/2025 [id number] / Implanted: Qty: 1 on 01/30/2021 by Lenny Gaspar M.D. at [facility] e.g. / pins/screws/ [id number] rods Procedures Procedure Name Priority Date/Time Associated Comments Diagnosis HEMATOLOGY/ONCOLOGY - Routine 11/18/2021 9:28 AM Results for this BLOOD, EXTERNAL LAB CDT procedur e are in RESULTS the results section. ARIA COURSE COMPLETE Routine 09/18/2021 9:48 AM R esults for this TREATMENT INFORMATION CDT proced ure are in the results section. ARIA DAILY TREATMENT Routine 09/18/2021 9:48 AM R esults for this INFORMATION CDT procedure are i n the results section. ARIA DAILY TREATMENT Routine 09/17/2021 9:51 AM R esults for this INFORMATION CDT procedure are i n the results section. from Last 3 Months Results (ABNORMAL) Hematology/Oncology - Blood, External Lab Results (11/18/2021 9:28 AM CDT) P athologist Signature EXT Sodium 143 135 - 149 OTHER mmol/L (SPECIFY IN [place]) EXT Potassium 3.1 (A) 3.6 - 5.1 OTHER (SPECIFY IN [place]) EXT Calcium, 8.5 8.4 - 10.6 OTHER Total (SPECIFY IN [place]) EXT Creatinine 1.0 0.5 - 1.5 OTHER mg/dL (SPECIFY IN [place]) EXT Chloride 109 96 - 114 OTHER (SPECIFY IN [place]) EXT BUN (Blood 22 7 - 30 OTHER Urea Nitrogen) (SPECIFY IN [place]) Specimen (Source) Anatomical Collection Method Collection Time Re ceived Time Location / / Volume Laterality Blood 11/18/2021 9:28 AM CDT Narrative This result has an attachment that is no t available. Historical Provider LAB BLOOD NON ADD-ON Performing Organization Address City/State/ZIP Code Phon e Number OTHER (SPECIFY IN [place]) OTHER (SPECIFY IN [place]) N/A Aria Course Complete Treatment Information (09/18/2021 9:48 AM CDT) [facility] gist Method Time Signature Course ID [id number] MARTINEZ ARIA d Course Start Date MARTINEZ ARIA 2 11:33 CDT Course End Date MARTINEZ ARIA 2 10:33 CDT First Treatment MARTINEZ ARIA Date 2 12:02 CDT Last Treatment MARTINEZ ARIA Date 2 09:48 CDT Treatment Elapsed 44 MARTINEZ ARIA Days Reference Point [id number] MARTINEZ ARIA Dosage Given to 6400 MARTINEZ ARIA Date cGy Plan ID [id number] MARTINEZ ARIA d Fractions Treated 25 MARTINEZ ARIA to Date Planned Total 25 MARTINEZ ARIA Fractions Prescribed Dose 200 MARTINEZ ARIA Per Fraction Prescription Dose 5000 MARTINEZ ARIA in cGy Predecessor Plan [id number] MARTINEZ ARIA d1 Plan Primary [id number] MARTINEZ ARIA Reference Point Plan ID [id number] MARTINEZ ARIA edS Fractions Treated 7 MARTINEZ ARIA to Date Planned Total 7 MARTINEZ ARIA Fractions Prescribed Dose 200 MARTINEZ ARIA Per Fraction Prescription Dose 1400 MARTINEZ ARIA in cGy Predecessor Plan [id number] MARTINEZ ARIA edS1 Plan Primary [id number] MARTINEZ ARIA Reference Point Specimen (Source) Anatomical Collection Method Collection Time Re ceived Time Location / / Volume Laterality 09/18/2021 9:48 AM CDT Provider Not In System RADIATION ONCOLOGY ORDERABLE S Performing Organization Address City/State/ZIP Code Phon e Number JUAN MCFADDEN na Aria Daily Treatment Information (09/18/2021 9:48 AM CDT)Only the most recent of 2 resultswithin the time period is included. [facility] gist Method Time Signature Course ID [id number] MARTINEZ ARIA d Course Start Date MARTINEZ ARIA 2 11:33 CDT First Treatment MARTINEZ ARIA Date 2 12:02 CDT Last Treatment MARTINEZ ARIA Date 2 09:48 CDT Treatment Elapsed 44 MARTINEZ ARIA Days Reference Point [id number] MARTINEZ ARIA Dosage Given to 6400 MARTINEZ ARIA Date cGy Session Dosage 200 MARTINEZ ARIA Given Plan ID [id number] MARTINEZ ARIA edS Fractions Treated 7 MARTINEZ ARIA to Date Planned Total 7 MARTINEZ ARIA Fractions Prescribed Dose 200 MARTINEZ ARIA Per Fraction Prescription Dose 1400 MARTINEZ ARIA in cGy Predecessor Plan [id number] MARTINEZ ARIA edS1 Plan Primary [id number] MARTINEZ ARIA Reference Point Specimen (Source) Anatomical Collection Method Collection Time Re ceived Time Location / / Volume Laterality 09/18/2021 9:48 AM CDT Provider Not In System RADIATION ONCOLOGY ORDERABLE S Performing Organization Address City/State/ZIP Code Phon e Number JUAN MCFADDEN na from Last 3 Months Insurance Payer Benefit Plan Subscriber ID Effective Phone Address Typ e / Group Dates MEDICARE MEDICARE A [id number] 2016-Pres [address] [place] [address] BLUE CROSS BCBS [place] [id number] 2016-Pre [phone] PO DIMITRI X Cost Share BLUE SHIELD BLUE COST sent [phone] [place] [address] Advance Directives For more information, please contact: [phone] Latest Code Status on File Code Status Date Activated Date Inactivated Comments Full Code 01/30/2021 9:38 PM 01/31/2021 4:28 PM Question Answer Comments Full Code: Discussed Care Teams Hot Frame Tender Relationship Specialty Start Date End Date Elsewhere, Pcp PCP - General Family Medicine 01/30/21
--- OUTSIDE RECORDS SUMMARY | 2021-12-18 15:58 | XMS_ITS ---
:1950 Author Organization [facility] Address [address] [place] [address] Care Team Providers Name Role Phone Elsewhere, Pcp Primary Care Provider Unavailable Active Problems Problem Noted Date Secondary Malignant [...] 03/2017 polyp, repeat in 5 ye ars Current Oncology Plans Leuprolide Acetate Every 12 WeeksPlan Start Date:08/05/2021 Plan Provider:London George M.D. Linked Problems Secondary Malignant Neoplasm Intrapelvic Lymph Node (HCC)Rising Prostate Specific Antigen Following Treatment For Malignan t Cancer Of Prostate Treatment Medications No medications scheduled. Past Plans No past plan information found. Radiation Treatments Plan Last Treated Elapsed Days Fractions Prescribed Prescribed Total On Treated Fraction Dose Dose [id number] 09/18/2021 44 7 of 7 200 cGy 1,400 cGy S [id number] 09/09/2021 35 25 of 25 200 cGy 5,000 cGy Reference Point Last Treated On Elapsed Days Session Dose Total Dos e [id number] 09/18/2021 44 200 cGy 6,400 cGy
--- OUTSIDE RECORDS SUMMARY | 2021-12-18 15:58 | XMS_ITS | Encounter Summary ---
:1950 Author Organization [facility] Address [address] [place] [address] Care Team Providers Name Role Phone Elsewhere, Pcp Primary Care Provider Unavailable Encounter Details Date Type Department Care Team Description 09/18/2021 Documentation Department of Radiation London George, Oncology in [facility] [address] [facility] [address] [place] [phone] (Wo rk) Social History Tobacco Use Types Packs/Day Years [...] 06/27/2021 relatives? How often do you attend muslim or mu-ism 1 to 4 times per year 06/27/2021 services? Do you belong to any clubs or organizations such No 06/27/2021 as muslim groups, unions, fraternal or athletic groups, or [...] the highest level of school Associate degree: [employer] program 06/27/2021 you have completed or the highest degree you have received? Sex Assigned at Date Recorded Male 06/27/2021 1:28 PM CDT documented as of this encounter Miscellaneous Notes Radiation Completion Notes - Chey Mcghee R.N. - 09/18/2021 11:59 PM CDT DIAGNOSIS: 1. Primary Malignant Neoplasm Of Prostate (HCC) Attending Physician: London George M.D. ([id number]) Treatment Intent: Curative Concomitant Therapy: Hormonal Therapy Single Plan Treatment Course: 1xProstBed Plan ID Fractions Dose / Fraction (cGy) Dose Treated (cGy) Dose Planned (cGy) First Treatment Last Treatment Elapsed Days [id number] 200 5000 5000 08/05/2021 09/09/2021 35 [id number] 200 1400 1400 09/10/2021 09/18/2021 8 Treatment Site Summary [id number] 08/05/2021 09/18/2021 44 Course Summary 08/05/2021 09/18/2021 44 Radiation Modality: Photons CLINICAL SUMMARY Mr. Cory Barton completed radiation treatment as planned without interruptions. The courseof treatment was tolerated well. The patient experienced toxicities of grade 1 diarrhea and urinary frequency during radiation treatment. TREATMENT RESPONSE: Response to treatment will be determined by post-treatment imaging and/or laboratory work. RECOMMENDED FOLLOW UP: Radiation Oncologist. Dr. George will see patient in follow up visit in 3 months. We will check PSA and testosterone at [facility] a few days before follow up visit. Signed by: Chey Mcghee R.N., 2021 3:33 PM CDT [facility] [address] [place] [address] documented in this encounter Plan of Treatment Upcoming Encounters Date Type Specialty Care Team Description 12/23/2021 Appointment Radiation Oncology Low George M.D. [address] [place], [place] [phone] (Wo rk) documented as of this encounter Visit Diagnoses Diagnosis Primary Malignant Neoplasm Of Prostate ( HCC) - Primary documented in this encounter Care Teams Charge Master Analyst Relationship Specialty Start Date End Date Elsewhere, Pcp PCP - General Family Medicine 01/30/21 documented as of this encounter
--- OUTSIDE RECORDS SUMMARY | 2021-12-18 15:59 | XMS_ITS | Encounter Summary ---
:1950 Author Organization [facility] Address [address] [place] [address] Care Team Providers Name Role Phone Elsewhere, Pcp Primary Care Provider Unavailable Encounter Details Date Type Department Care Team Description 09/06/2021 Hospital Encounter Department of Radiation La George, Oncology in [facility] [address] [facility] [address] [place] [phone] Social History Tobacco Use Types Packs/Day Years [...] 06/27/2021 relatives? How often do you attend rastafari or sabianist 1 to 4 times per year 06/27/2021 services? Do you belong to any clubs or organizations such No 06/27/2021 as rastafari groups, unions, fraternal or athletic groups, or [...] place to sleep or slept in a half-way (including now)? Education Answer Date Recorded What is the highest level of school Associate degree: [employer] program 06/27/2021 you have completed or the [...] Radiation Oncology Low George M.D. [address] [place], [place] [phone] (Wo rk) documented as of this encounter Visit Diagnoses Not on filedocumented in this encounter Care Teams Diamond Die Driller Relationship Specialty Start Date End Date Elsewhere, Pcp PCP - General Family Medicine 01/30/21 documented as of this encounter
--- OUTSIDE RECORDS SUMMARY | 2021-12-18 15:59 | XMS_ITS | Encounter Summary ---
:1950 Author Organization [facility] Address [address] [place] [address] Care Team Providers Name Role Phone Elsewhere, Pcp Primary Care Provider Unavailable Encounter Details Date Type Department Care Team Description 09/05/2021 Hospital Encounter Department of Radiation La George, Oncology in [facility] [address] [facility] [address] [place] [phone] Social History Tobacco Use Types Packs/Day Years [...] 06/27/2021 relatives? How often do you attend hoahaoism or confucianism 1 to 4 times per year 06/27/2021 services? Do you belong to any clubs or organizations such No 06/27/2021 as hoahaoism groups, unions, fraternal or athletic groups, or [...] the highest level of school Associate degree: [employer] program 06/27/2021 you have completed or the [...] Radiation Oncology Low George M.D. [address] [place], [place] [phone] (Wo rk) documented as of this encounter Visit Diagnoses Not on filedocumented in this encounter Care Teams Mental Health Advanced Practice Nurse Relationship Specialty Start Date End Date Elsewhere, Pcp PCP - General Family Medicine 01/30/21 documented as of this encounter
--- OUTSIDE RECORDS SUMMARY | 2021-12-18 15:59 | XMS_ITS | Encounter Summary ---
:1950 Author Organization [facility] Address [address] [place] [address] Care Team Providers Name Role Phone Elsewhere, Pcp Primary Care Provider Unavailable Encounter Details Date Type Department Care Team Description 08/21/2021 Hospital Encounter Department of Radiation La George, Oncology in [facility] [address] [facility] [address] [place] [phone] Social History Tobacco Use Types Packs/Day Years [...] 06/27/2021 relatives? How often do you attend advent or jewish 1 to 4 times per year 06/27/2021 services? Do you belong to any clubs or organizations such No 06/27/2021 as advent groups, unions, fraternal or athletic groups, or [...] place to sleep or slept in a nursing home (including now)? Education Answer Date Recorded What is the highest level of school Associate degree: [employer] program 06/27/2021 you have completed or the [...] Radiation Oncology Low George M.D. [address] [place], [place] [phone] (Wo rk) documented as of this encounter Visit Diagnoses Not on filedocumented in this encounter Care Teams Hand Candle Molder Relationship Specialty Start Date End Date Elsewhere, Pcp PCP - General Family Medicine 01/30/21 documented as of this encounter
--- OUTSIDE RECORDS SUMMARY | 2021-12-18 15:59 | XMS_ITS | Encounter Summary ---
:1950 Author Organization [facility] Address [address] [place] [address] Care Team Providers Name Role Phone Elsewhere, Pcp Primary Care Provider Unavailable Encounter Details Date Type Department Care Team Description 08/29/2021 Hospital Encounter Department of Radiation La George, Oncology in [facility] [address] [facility] [address] [place] [phone] Social History Tobacco Use Types Packs/Day Years [...] 06/27/2021 relatives? How often do you attend christianity or rastafari 1 to 4 times per year 06/27/2021 services? Do you belong to any clubs or organizations such No 06/27/2021 as christianity groups, unions, fraternal or athletic groups, or [...] place to sleep or slept in a penitentiary (including now)? Education Answer Date Recorded What is the highest level of school Associate degree: [employer] program 06/27/2021 you have completed or the [...] Radiation Oncology Low George M.D. [address] [place], [place] [phone] (Wo rk) documented as of this encounter Visit Diagnoses Not on filedocumented in this encounter Care Teams Tin Recovery Worker Relationship Specialty Start Date End Date Elsewhere, Pcp PCP - General Family Medicine 01/30/21 documented as of this encounter
--- OUTSIDE RECORDS SUMMARY | 2021-12-18 15:59 | XMS_ITS | Encounter Summary ---
:1950 Author Organization [facility] Address [address] [place] [id number] Care Team Providers Name Role Phone Elsewhere, Pcp Primary Care Provider Unavailable Reason for Referral Radiation Therapy (Routine) - Authorized Specialty Diagnoses / Procedures Referred By Contact Refer red To Contact Diagnoses Primary Malignant Neoplasm Of Prostate (HCC) London George M.D. [facility] Procedures Management Visit [address] [place] [phone] Referral ID Status Reason Start Date Expiration Date Visits V isits Requested Authorized [id number] Authorized 07/25/2021 07/25/2022 10 10 Reason for Visit Radiation Therapy (Routine) - Authorized Specialty Diagnoses / Procedures Referred By Contact Refer red To Contact Diagnoses Primary Malignant Neoplasm Of Prostate (HCC) London George M.D. [facility] Procedures Management Visit [address] [place] [phone] Referral ID Status Reason Start Date Expiration Date Visits V isits Requested Authorized [id number] Authorized 07/25/2021 07/25/2022 10 10 Encounter Details Date Type Department Care Team Description 08/28/2021 - Hospital Encounter Department of Ariel, Primary Malignant 09/03/2021 Radiation Oncology London Costello M.D. Neoplasm Of Prostate in [place], [address] [facility] (HCC) [place], [place] [address] [facility] [address] [place], [place] [phone] (Work) [phone] Social History Tobacco Use Types Packs/Day Years [...] 06/27/2021 relatives? How often do you attend sikh or quaker 1 to 4 times per year 06/27/2021 services? Do you belong to any clubs or organizations such No 06/27/2021 as sikh groups, unions, fraternal or athletic groups, or [...] place to sleep or slept in a snf (including now)? Education Answer Date Recorded What is the highest level of school Associate degree: [employer] program 06/27/2021 you have completed or the highest degree you have received? Sex Assigned at Date Recorded Male 06/27/2021 1:28 PM CDT documented as of this encounter Last Filed Vital Signs Vital Sign Reading Time Taken Comments Blood Pressure - - Pulse - - Temperature 35.9 ??C (96.6 ??F) 08/28/2021 10:02 AM CDT Respiratory Rate - - Oxygen Saturation - - Inhaled Oxygen Concentration - - Weight 87.9 kg (193 lb 12.6 oz) 08/28/2021 10:02 AM CDT Height - - Body Mass Index 30.78 01/30/2021 11:48 AM ENDOCRINOLOGY SPECIALIST documented in this encounter Medications at [...] documented as of this encounter Progress Notes Yenny Suarez P.A.-C., M.S. - 08/28/2021 10:00 AM CDT SUBJECTIVE REASON FOR VISIT Evaluation for side effects while receiving radiation treatment for 1. Primary Malignant Neoplasm Of Prostate (HCC) SUPERVISED BY: London George M.D. ([id number]) HISTORY OF PRESENT ILLNESS Mr. Cory Barton is a 70-year-old male with persistently positive PSA following prostatectomy. ??He is now undergoing salvage radiotherapy with a long course of ADT (aiming for 18-36 months ofandrogen deprivation therapy).? Treatment Course: 1xProstBed Plan ID Fractions Dose / Fraction (cGy) Dose Treated (cGy) Dose Planned (cGy) First Treatment Last Treatment Elapsed Days [id number] 200 3600 5000 08/05/2021 08/28/2021 23 Course Summary 08/05/2021 08/28/2021 23 The patient was seen and examined today with Dr. George. The patient reports doing well overall. He reports good energy levels. He reports good urination anddenies dysuria or hematuria. He reports regular bowel movements and denies diarrhea. He reports thathe has received the abiraterone medication, but has not started taking it yet. He was also prescribed potassium pills. He is scheduled for lab work tomorrow to check on his hypokalemia. PATIENT REPORTED SYMPTOM SCREEN FATIGUE (Scale: 0 = no fatigue; 10 = worst fatigue you can imagine): 0 PAIN (Scale: 0 = no pain; 10 = worst pain you can imagine): 0 OVERALL QUALITY OF LIFE (Scale: 0 = as bad as can be; 10 = as good as can be): 10 OBJECTIVE Temp (!) 35.9 ??C (Temporal) Wt 87.9 kg BMI 30.78 kg/m?? PHYSICAL EXAM General: Alert and oriented [...] 22.5 mg injection??on August 05, 2021 at [facility] #4 Stress urinary incontinence following prostatectomy, scant [...] The patient is tolerating radiation treatment well overall without specific side effects at this time. He is scheduled for lab work tomorrow and will follow-up with his primary provider, Dr. Cho, regarding his hypokalemia. He has the abiraterone medication, but is waiting to start it pending the results of his lab work. He will continue with radiation treatment as planned. Signed by: Yenny Suarez P.A.-C., M.S. 08/28/2021 10:22 AM CDT Associated attestation - London George M.D. - 09/03/2021 9:38 AM CDT I saw and evaluated the patient and participated in the [place] portions of the service. I reviewed the documentation of Yenny Suarez P.A.-C. and agree with the findings and plan. The patient appears well onexam. He will continue with treatment as planned. Signed by: London George M.D. 09/03/21 9:38 AM CDT [facility] [place] documented in this encounter Plan of Treatment Upcoming Encounters Date Type Specialty Care Team Description 12/23/2021 Appointment Radiation Oncology Low George M.D. [address] [place] [phone] (Wo rk) Scheduled Orders Name Type Priority Associated Diagnoses Order S chedule Management Visit Radiation Oncology Routine Primary Malignant Once for 1 Neoplasm Of Prostate Occurre nces starting (HCC) 08/28/2021 unti l 08/28/2021 documented as of this encounter Visit Diagnoses Diagnosis Primary Malignant Neoplasm Of Prostate ( HCC) documented in this encounter Care Teams Manager Combination Relationship Specialty Start Date End Date Elsewhere, Pcp PCP - General Family Medicine 01/30/21 documented as of this encounter
--- OUTSIDE RECORDS SUMMARY | 2021-12-18 15:59 | XMS_ITS | Encounter Summary ---
:1950 Author Organization [facility] Address [address] [place] [address] Care Team Providers Name Role Phone Elsewhere, Pcp Primary Care Provider Unavailable Encounter Details Date Type Department Care Team Description 08/22/2021 Hospital Encounter Department of Radiation La George, Oncology in [facility] [address] [facility] [address] [place] [phone] Social History Tobacco Use Types Packs/Day Years [...] 06/27/2021 relatives? How often do you attend pentecostalism or hindu 1 to 4 times per year 06/27/2021 services? Do you belong to any clubs or organizations such No 06/27/2021 as pentecostalism groups, unions, fraternal or athletic groups, or [...] the highest level of school Associate degree: [employer] program 06/27/2021 you have completed or the [...] Radiation Oncology Low George M.D. [address] [place], [place] [phone] (Wo rk) documented as of this encounter Visit Diagnoses Not on filedocumented in this encounter Care Teams Outpatient Services Director Relationship Specialty Start Date End Date Elsewhere, Pcp PCP - General Family Medicine 01/30/21 documented as of this encounter
--- OUTSIDE RECORDS SUMMARY | 2021-12-18 15:59 | XMS_ITS | Encounter Summary ---
:1950 Author Organization [facility] Address [address] [place] [address] Care Team Providers Name Role Phone Elsewhere, Pcp Primary Care Provider Unavailable Reason for Referral Radiation Therapy (Routine) - Closed Specialty Diagnoses / Procedures Referred By Contact Refer red To Contact Diagnoses Rising Prostate Specific Antigen Following Treatment For Malignant Cancer Of Prostate Secondary Malignant Neoplasm Intrapelvic Lymph Node (HCC) London George M.D. [facility] [place] [facility] Procedures Initial Rad Onc Treatment Planning CT Simulation [address] [place] [address] Referral ID Status Reason Start Date Expiration Date Visits Requ ested Visits Authorized [id number] Closed 07/30/2021 07/30/2022 1 1 Reason for Visit Radiation Therapy (Routine) - Closed Specialty Diagnoses / Procedures Referred By Contact Refer red To Contact Diagnoses Rising Prostate Specific Antigen Following Treatment For Malignant Cancer Of Prostate Secondary Malignant Neoplasm Intrapelvic Lymph Node (HCC) London George M.D. [facility] [place] [facility] Procedures Initial Rad Onc Treatment Planning CT Simulation [address] [place], [place] [address] Referral ID Status Reason Start Date Expiration Date Visits Requ ested Visits Authorized [id number] Closed 07/30/2021 07/30/2022 1 1 Encounter Details Date Type Department Care Team Description 07/30/2021 - Hospital Encounter Department of Rom George P rostate Specific Antigen Following Treatment For Malignant Cancer Of Prostate; 08/19/2021 Radiation Oncology London Costello M.D. Secondary Malignant Neoplasm Intrapelvic Lymph Node (HCC) in [place], [facility] [address] [place], [place] [address] [facility] [address] [place], [place] [phone] (Work) [phone] Social History Tobacco Use Types Packs/Day Years [...] How often do you attend muslim or voodoo 1 to 4 times per [...] place to sleep or slept in a [place] facility (including now)? Education Answer Date Recorded What [...] per tablet documented as of this encounter Procedure Notes Francisca Gregory, RTT - 07/30/2021 11:30 AM CDTAssociated Order(s): Initial Rad Onc Treatment Planning CT Simulation Pre-Procedure Diagnose(s): Rising Prostate Specific Antigen Following Treatment For Malignant CancerOf Prostate; Secondary Malignant Neoplasm Intrapelvic Lymph Node (HCC) Post-Procedure Diagnose(s): Rising Prostate Specific Antigen Following Treatment For Malignant Cancer Of Prostate; Secondary Malignant Neoplasm Intrapelvic Lymph Node (HCC) Initial Rad Onc Treatment Planning CT Simulation Date/Time: 07/30/2021 12:18 PM Performed by: London George M.D. Authorized by: London George M.D. Simulation was performed under physician supervision based on physician order in preparation for radiation therapy. Physician was immediately available to provide assistance and direction throughout the procedure. Written consent for treatment was completed or confirmed. The patient was appropriately identified and placed in the treatment position using the necessary immobilization to ensure a reproducible treatment position. Reference lopez were placed to facilitate marking of isocenter. Area scanned: Abdomen and Pelvis Contrast used for the simulation procedure: Urethrogram Patient position: Head first supine Custom immobilization: Vac-quan Motion management: None Bolus: No CT guidance: Following positioning of the patient, a series of slices was obtained to be utilized intreatment planning. CT images were transferred to the Sodraft treatment planning system, after a reference isocenter was determined and marked. Segmentation and treatment planning will take place priorto treatment delivery. Patient set up and imaging was appropriate and completed without incident. Letter Stamping Machine Operator use: No documented in this encounter Plan of Treatment Upcoming Encounters Date Type Specialty Care Team Description 12/23/2021 Appointment Radiation Oncology Low George M.D. [address] [place], [place] [phone] (Wo rk) documented as of this encounter Procedures Procedure Name Priority Date/Time Associated Diagnosis Comme nts INITIAL RAD ONC Routine 07/30/2021 12:18 Rising Prostate Resul ts for this TREATMENT PLANNING PM CDT Specific Antigen proce dure are in CT SIMULATION Following Treatment the res ults For Malignant Cancer section . Of Prostate Secondary Malignant Neoplasm Intrapelvic Lymph Node (HCC) documented in this encounter Results Initial Rad Onc Treatment Planning CT Simulation (07/30/2021 12:18 PM CDT) Specimen (Source) Anatomical Location Collection Method / Collectio n Time Received Time / Laterality Volume Narrative [facility] - 07/30/2021 12:18 PM CDT Francisca Gregory, RTT ? 07/30/2021 12:19 PM Initial Rad Onc Treatment Planning CT Si mulation Date/Time: 07/30/2021 12:18 PM Performed by: London George M.D. Authorized by: London George M.D. London George M.D. RADIATION ONCOLOGY ORDERABLE S Performing Organization Address City/State/ZIP Code Phon e Number [facility] documented in this encounter Visit Diagnoses Diagnosis Rising Prostate Specific Antigen Followi ng Treatment For Malignant Cancer Of Prostate Secondary Malignant Neoplasm Intrapelvic Lymph Node (HCC) documented in this encounter Care Teams Wood Boring Machine Operator Relationship Specialty Start Date End Date Elsewhere, Pcp PCP - General Family Medicine 01/30/21 documented as of this encounter
--- OUTSIDE RECORDS SUMMARY | 2021-12-18 15:59 | XMS_ITS | Encounter Summary ---
:1950 Author Organization [facility] Address [address] [place] [address] Care Team Providers Name Role Phone Elsewhere, Pcp Primary Care Provider Unavailable Encounter Details Date Type Department Care Team Description 09/11/2021 Hospital Encounter Department of Radiation La George, Oncology in [facility] [address] [facility] [address] [place] [phone] Social History Tobacco Use Types Packs/Day Years [...] 06/27/2021 relatives? How often do you attend baptist or orthodoxy 1 to 4 times per year 06/27/2021 services? Do you belong to any clubs or organizations such No 06/27/2021 as baptist groups, unions, fraternal or athletic groups, or [...] the highest level of school Associate degree: [employer] program 06/27/2021 you have completed or the [...] Radiation Oncology Low George M.D. [address] [place], [place] [phone] (Wo rk) documented as of this encounter Visit Diagnoses Not on filedocumented in this encounter Care Teams Squaring Shear Operator Relationship Specialty Start Date End Date Elsewhere, Pcp PCP - General Family Medicine 01/30/21 documented as of this encounter
--- OUTSIDE RECORDS SUMMARY | 2021-12-18 15:59 | XMS_ITS | Encounter Summary ---
:1950 Author Organization [facility] Address [address] [place] [address] Care Team Providers Name Role Phone Elsewhere, Pcp Primary Care Provider Unavailable Reason for Referral Radiation Therapy (Routine) - Authorized Specialty Diagnoses / Procedures Referred By Contact Refer red To Contact Diagnoses Primary Malignant Neoplasm Of Prostate (HCC) London George M.D. [facility] Management Visit [address] [place] [phone] Referral ID Status Reason Start Date Expiration Date Visits V isits Requested Authorized [id number] Authorized 07/25/2021 07/25/2022 10 10 Reason for Visit Radiation Therapy (Routine) - Authorized Specialty Diagnoses / Procedures Referred By Contact Refer red To Contact Diagnoses Primary Malignant Neoplasm Of Prostate (HCC) London George M.D. [facility] Procedures Management Visit [address] [place] [phone] Referral ID Status Reason Start Date Expiration Date Visits V isits Requested Authorized [id number] Authorized 07/25/2021 07/25/2022 10 10 Encounter Details Date Type Department Care Team Description 08/20/2021 Hospital Encounter Department of Faith Mcdermott Malignant Radiation Oncology Osmin Prakash Neoplasm Of Prostate in [place], [address] [facility] (HCC) [place], [place] [address] [facility] [address] [place], [place] [phone] (Work) [phone] Social History Tobacco Use Types Packs/Day Years [...] 06/27/2021 relatives? How often do you attend jainism or rastafari 1 to 4 times per year 06/27/2021 services? Do you belong to any clubs or organizations such No 06/27/2021 as jainism groups, unions, fraternal or athletic groups, or [...] place to sleep or slept in a fpc (including now)? Education Answer Date Recorded What is the highest level of school Associate degree: academ [employer] program 06/27/2021 you have completed or the highest degree you have received? 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 - 08/20/2021 10:15 AM CDT ATTESTATION FOR MANAGEMENT VISIT I saw and evaluated the patient and participated in the [place] portions of the service as noted below. I reviewed the documentation of Ms. Chey Mcghee RN and agree with the findings and plan. The patient appears well on exam. We will continue with radiation as planned and monitor weekly. Faith Mcdermott M.D., 08/20/2021 SUBJECTIVE REASON FOR VISIT Evaluation for side effects while receiving radiation treatment for 1. Primary Malignant Neoplasm Of Prostate (HCC) SUPERVISED BY: Dr. Mcdermott HISTORY OF PRESENT ILLNESS Mr. Cory Barton is a 70-year-old male with persistently positive PSA following prostatectomy. He is now undergoing salvage radiotherapy with a long course of ADT (aiming for 18-36 months of androgen deprivation therapy). Treatment Course: 1xProstBed Plan ID Fractions Dose / Fraction (cGy) Dose Treated (cGy) Dose Planned (cGy) First Treatment Last Treatment Elapsed Days [id number] 200 2400 5000 08/05/2021 08/20/2021 15 Course Summary 08/05/2021 08/20/2021 15 The patient was seen and examined today with Dr. Mcdermott. The patient reports doing well overall. He denies hematuria, rectal bleeding or dysuria. He has stopped Senokot-S due to minimal diarrhea. He has been in communication with his primary care provider regarding low potassium before initiation of abiraterone. Nocturia is occurring 5 times a night. He therefore is not sleeping well. PATIENT REPORTED SYMPTOM SCREEN FATIGUE (Scale: 0 = no fatigue; 10 = worst fatigue you can imagine): 0 PAIN (Scale: 0 = no pain; 10 = worst pain you can imagine): 0 OVERALL QUALITY OF LIFE (Scale: 0 = as bad as can be; 10 = as good as can be): 10 OBJECTIVE Temp 36.5 ??C (Temporal) Wt 88 kg BMI 30.81 kg/m?? PHYSICAL EXAM General: Alert and oriented [...] mg injection on August 05, 2021 at [facility] #4 Stress urinary incontinence following [...] patient is tolerating radiation treatment well overall. Dr. Mcdermott recommended 1-2 tablets of Ibuprofen with food before bedtime to help with nocturia. Patient notes that Dr. Cho wanted him to change blood pressure medication. Dr. Arnold's team called him Thursday to review Dr. Cho's recomme ndations. Patient will be back in communication with Dr. Cho prior to initiating Abiraterone. Hewill continue with radiation treatment as planned. Radiation Oncology [place] can be contacted atany time for any questions or concerns. Signed by: Chey Mcghee R.N. 08/20/2021 11:05 AM CDT documented in this encounter Plan of Treatment Upcoming Encounters Date Type Specialty Care Team Description 12/23/2021 Appointment Radiation Oncology Low George M.D. [address] [place] [phone] (Wo rk) Scheduled Orders Name Type Priority Associated Diagnoses Order S chedule Management Visit Radiation Oncology Routine Primary Malignant Once for 1 Neoplasm Of Prostate Occurre nces starting (HCC) 08/20/2021 unti l 08/20/2021 documented as of this encounter Visit Diagnoses Diagnosis Primary Malignant Neoplasm Of Prostate ( HCC) documented in this encounter Care Teams Education Professor Relationship Specialty Start Date End Date Elsewhere, Pcp PCP - General Family Medicine 01/30/21 documented as of this encounter
--- OUTSIDE RECORDS SUMMARY | 2021-12-18 15:59 | XMS_ITS | Encounter Summary ---
:1950 Author Organization [facility] Address [address] [place] [address] Care Team Providers Name Role Phone Elsewhere, Pcp Primary Care Provider Unavailable Encounter Details Date Type Department Care Team Description 08/19/2021 Hospital Encounter Department of Radiation La George, Oncology in [facility] [address] [facility] [address] [place] [phone] Social History Tobacco Use Types Packs/Day Years [...] 06/27/2021 relatives? How often do you attend hindu or temple 1 to 4 times per year 06/27/2021 services? Do you belong to any clubs or organizations such No 06/27/2021 as hindu groups, unions, fraternal or athletic groups, or [...] the highest level of school Associate degree: [employer] program 06/27/2021 you have completed or the [...] Radiation Oncology Low George M.D. [address] [place], [place] [phone] (Wo rk) documented as of this encounter Visit Diagnoses Not on filedocumented in this encounter Care Teams Stitch Welder Relationship Specialty Start Date End Date Elsewhere, Pcp PCP - General Family Medicine 01/30/21 documented as of this encounter
--- OUTSIDE RECORDS SUMMARY | 2021-12-18 15:59 | XMS_ITS | Encounter Summary ---
:1950 Author Organization [facility] Address [address] [place] [address] Care Team Providers Name Role Phone Elsewhere, Pcp Primary Care Provider Unavailable Encounter Details Date Type Department Care Team Description 08/30/2021 Hospital Encounter Department of Radiation La George, Oncology in [facility] [address] [facility] [address] [place] [phone] Social History Tobacco Use Types Packs/Day Years [...] 06/27/2021 relatives? How often do you attend lutheran or methodist 1 to 4 times per year 06/27/2021 services? Do you belong to any clubs or organizations such No 06/27/2021 as lutheran groups, unions, fraternal or athletic groups, or [...] the highest level of school Associate degree: [employer] program 06/27/2021 you have completed or the [...] Radiation Oncology Low George M.D. [address] [place], [place] [phone] (Wo rk) documented as of this encounter Visit Diagnoses Not on filedocumented in this encounter Care Teams Blood Bank Calendar Control Clerk Relationship Specialty Start Date End Date Elsewhere, Pcp PCP - General Family Medicine 01/30/21 documented as of this encounter
--- OUTSIDE RECORDS SUMMARY | 2021-12-18 15:59 | XMS_ITS | Encounter Summary ---
:1950 Author Organization [facility] Address [address] [place] [address] Care Team Providers Name Role Phone Elsewhere, Pcp Primary Care Provider Unavailable Encounter Details Date Type Department Care Team Description 08/20/2021 Hospital Encounter Department of Radiation La George, Oncology in [facility] [address] [facility] [address] [place] [phone] Social History Tobacco Use Types Packs/Day Years [...] 06/27/2021 relatives? How often do you attend presybeterian or islam 1 to 4 times per year 06/27/2021 services? Do you belong to any clubs or organizations such No 06/27/2021 as presybeterian groups, unions, fraternal or athletic groups, or [...] place to sleep or slept in a skilled nursing (including now)? Education Answer Date Recorded What is the highest level of school Associate degree: [employer] program 06/27/2021 you have completed or the [...] Radiation Oncology Low George M.D. [address] [place], [place] [phone] (Wo rk) documented as of this encounter Visit Diagnoses Not on filedocumented in this encounter Care Teams Merchandising Lead Relationship Specialty Start Date End Date Elsewhere, Pcp PCP - General Family Medicine 01/30/21 documented as of this encounter
--- OUTSIDE RECORDS SUMMARY | 2021-12-18 15:59 | XMS_ITS | Encounter Summary ---
:1950 Author Organization [facility] Address [address] [place] [address] Care Team Providers Name Role Phone Elsewhere, Pcp Primary Care Provider Unavailable Encounter Details Date Type Department Care Team Description 09/03/2021 Hospital Encounter Department of Radiation [place] George, Oncology in [facility] [address] [facility] [address] [place] [phone] Social History Tobacco Use Types Packs/Day Years [...] 06/27/2021 relatives? How often do you attend congregational or baptist 1 to 4 times per year 06/27/2021 services? Do you belong to any clubs or organizations such No 06/27/2021 as congregational groups, unions, fraternal or athletic groups, or [...] the highest level of school Associate degree: [employer] program 06/27/2021 you have completed or the [...] Radiation Oncology Low George M.D. [address] [place], [place] [phone] (Wo rk) documented as of this encounter Visit Diagnoses Not on filedocumented in this encounter Care Teams Drill Operator Pneumatic Relationship Specialty Start Date End Date Elsewhere, Pcp PCP - General Family Medicine 01/30/21 documented as of this encounter
--- OUTSIDE RECORDS SUMMARY | 2021-12-18 15:59 | XMS_ITS | Encounter Summary ---
:1950 Author Organization [facility] Address [address] [place] [address] Care Team Providers Name Role Phone Elsewhere, Pcp Primary Care Provider Unavailable Reason for Referral Radiation Therapy (Routine) - Authorized Specialty Diagnoses / Procedures Referred By Contact Refer red To Contact Diagnoses Primary Malignant Neoplasm Of Prostate (HCC) London George M.D. [facility] Procedures Management Visit [address] [place] [phone] Referral ID Status Reason Start Date Expiration Date Visits V isits Requested Authorized [id number] Authorized 07/25/2021 07/25/2022 10 10 Reason for Visit Radiation Therapy (Routine) - Authorized Specialty Diagnoses / Procedures Referred By Contact Refer red To Contact Diagnoses Primary Malignant Neoplasm Of Prostate (HCC) London George M.D. [facility] Procedures Management Visit [address] [place] [phone] Referral ID Status Reason Start Date Expiration Date Visits V isits Requested Authorized [id number] Authorized 07/25/2021 07/25/2022 10 10 Encounter Details Date Type Department Care Team Description 08/07/2021 - Hospital Encounter Department of Ariel, Primary Malignant 08/19/2021 Radiation Oncology London Costello M.D. Neoplasm Of Prostate in [place], [address] [facility] (HCC) [place], [place] [address] [facility] [address] [place], [place] [phone] (Work) [phone] Social History Tobacco Use Types Packs/Day Years [...] 06/27/2021 relatives? How often do you attend adventist or buddhist 1 to 4 times per year 06/27/2021 services? Do you belong to any clubs or organizations such No 06/27/2021 as adventist groups, unions, fraternal or athletic groups, or [...] place to sleep or slept in a residential (including now)? Education Answer Date Recorded What is the highest level of school Associate degree: [employer] program 06/27/2021 you have completed or the highest degree you have received? 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 mg per tablet abiraterone (ZYTIGA) 250 Take 4 tablets 120 tablet 11 022 mg tabletIndications: (1,000 mg total) by Primary Malignant Neoplasm mouth daily. Take on Of Prostate (HCC) an empty stomach (1 hour before or 2 hours after food). acetaminophen (TYLENOL) Take 2 tablets 0 02/01/20 21 500 mg tablet (1,000 mg total) by mouth every 6 (six) hours as needed for pain. predniSONE (DELTASONE) 5 Take 1 tablet (5 mg 90 tablet 3 mg tabletIndications: total) by mouth Primary Malignant Neoplasm daily. Of Prostate (HCC) documented as of this encounter Progress Notes London George M.D. - 08/07/2021 1:45 PM CDT SUBJECTIVE REASON FOR VISIT Evaluation for side effects while receiving radiation treatment for 1. Primary Malignant Neoplasm Of Prostate (HCC) SUPERVISED BY: London George M.D. ([id number]) HISTORY OF PRESENT ILLNESS Mr. Cory Barton is a 70 y.o. male with persistently positive PSA following prostatectomy. He is now undergoing salvage radiotherapy with long course of ADT (aiming for 18-36 months of androgen deprivation therapy). Treatment Course: 1xProstBed Plan ID Fractions Dose / Fraction (cGy) Dose Treated (cGy) Dose Planned (cGy) First Treatment Last Treatment Elapsed Days [id number] 08/05/2021 08/07/2021 2 Course Summary 08/05/2021 08/07/2021 2 The patient was seen and examined today with Dr. George. The patient reports that he is doing well overall. He denies any side effects from radiotherapy. PATIENT REPORTED SYMPTOM SCREEN FATIGUE (Scale: 0 = no fatigue; 10 = worst fatigue you can imagine): 0 PAIN (Scale: 0 = no pain; 10 = worst pain you can imagine): 0 OVERALL QUALITY OF LIFE (Scale: 0 = as bad as can be; 10 = as good as can be): 10 OBJECTIVE Temp 36 ??C (Temporal) Wt 88.5 kg BMI 30.99 kg/m?? PHYSICAL EXAM General: Alert and oriented [...] mg injection on August 05, 2021 at [facility], and a visit with Medical Oncology for the consideration of abiraterone in the near future #4 Stress urinary incontinence following prostatectomy, scant in amount #5 Erectile dysfunction preceding prostatectomy #6 Salvage intensity modulated radiotherapy to prostate fossa, PET + pelvic lymph nodes initiated onAugust 05, 2021; anticipated completion on September 18, 2021 The patient is tolerating radiation treatment well overall. He received leuprolide 22.5 mg injection[facility] on Thursday, August 05, 2021. He will be due again for leuprolide injection on Friday, October 29, 2021. Dr. Arnold is scheduled to see patient tomorrow. He will contact us with any q uestions or concerns. We will continue with radiation treatment as planned. Signed by: Chey Mcghee R.N. 08/07/2021 1:57 PM CDT I saw and evaluated the patient and participated in the [place] portions of the service. I reviewed the documentation of Chey Mcghee R.N. and agree with the findings and plan. The patient appears well onexam. He will continue with treatment as planned. Signed by: London George M.D. 08/19/2021 9:14 AM CDT [facility] [address] [place] [address] documented in this encounter Plan of Treatment Upcoming Encounters Date Type Specialty Care Team Description 12/23/2021 Appointment Radiation Oncology Low George M.D. [address] [place], [place] [phone] (Wo rk) Scheduled Orders Name Type Priority Associated Diagnoses Order S chedule Management Visit Radiation Oncology Routine Primary Malignant Once for 1 Neoplasm Of Prostate Occurre nces starting (HCC) 08/07/2021 unti l 08/07/2021 documented as of this encounter Visit Diagnoses Diagnosis Primary Malignant Neoplasm Of Prostate ( HCC) documented in this encounter Care Teams Paper Spooler Relationship Specialty Start Date End Date Elsewhere, Pcp PCP - General Family Medicine 01/30/21 documented as of this encounter
--- OUTSIDE RECORDS SUMMARY | 2021-12-18 15:59 | XMS_ITS | Encounter Summary ---
:1950 Author Organization [facility] Address [address] [place] [address] Care Team Providers Name Role Phone Elsewhere, Pcp Primary Care Provider Unavailable Encounter Details Date Type Department Care Team Description 08/26/2021 Hospital Encounter Department of Radiation [place] George, Oncology in [facility] [address] [facility] [address] [place] [phone] Social History Tobacco Use Types Packs/Day Years [...] 06/27/2021 relatives? How often do you attend orthodoxy or alevism 1 to 4 times per year 06/27/2021 services? Do you belong to any clubs or organizations such No 06/27/2021 as orthodoxy groups, unions, fraternal or athletic groups, or [...] place to sleep or slept in a intermediate (including now)? Education Answer Date Recorded What is the highest level of school Associate degree: [employer] program 06/27/2021 you have completed or the [...] Radiation Oncology Low George M.D. [address] [place], [place] [phone] (Wo rk) documented as of this encounter Visit Diagnoses Not on filedocumented in this encounter Care Teams Physically Impaired Teacher Relationship Specialty Start Date End Date Elsewhere, Pcp PCP - General Family Medicine 01/30/21 documented as of this encounter
--- OUTSIDE RECORDS SUMMARY | 2021-12-18 15:59 | XMS_ITS | Encounter Summary ---
:1950 Author Organization [facility] Address [address] [place] [address] Care Team Providers Name Role Phone Elsewhere, Pcp Primary Care Provider Unavailable Encounter Details Date Type Department Care Team Description 08/23/2021 Hospital Encounter Department of Radiation La George, Oncology in [facility] [address] [facility] [address] [place] [address] [phone] Social History Tobacco Use Types Packs/Day Years [...] 06/27/2021 relatives? How often do you attend jehovah's witness or worship 1 to 4 times per year 06/27/2021 services? Do you belong to any clubs or organizations such No 06/27/2021 as jehovah's witness groups, unions, fraternal or athletic groups, or [...] place to sleep or slept in a group home (including now)? Education Answer Date Recorded What is the highest level of school Associate degree: [employer] program 06/27/2021 you have completed or the [...] Radiation Oncology Low George M.D. [address] [place], [place] [phone] (Wo rk) documented as of this encounter Visit Diagnoses Not on filedocumented in this encounter Care Teams Daily Sales Audit Clerk Relationship Specialty Start Date End Date Elsewhere, Pcp PCP - General Family Medicine 01/30/21 documented as of this encounter
--- OUTSIDE RECORDS SUMMARY | 2021-12-18 15:59 | XMS_ITS | Encounter Summary ---
:[address] [facility] Address [address] [place] [address] Care Team Providers Name Role Phone Elsewhere, Pcp Primary Care Provider Unavailable Encounter Details Date Type Department Care Team Description 09/10/2021 Hospital Encounter Department of Radiation La George, Oncology in [facility] [address] [facility] [address] [place] [address] [phone] Social History Tobacco Use Types Packs/Day Years [...] 06/27/2021 relatives? How often do you attend gnosticism or voodoo 1 to 4 times per year 06/27/2021 services? Do you belong to any clubs or organizations such No 06/27/2021 as gnosticism groups, unions, fraternal or athletic groups, or [...] place to sleep or slept in a detention (including now)? Education Answer Date Recorded What is the highest level of school Associate degree: [employer] program 06/27/2021 you have completed or the [...] Radiation Oncology Low George M.D. [address] [place], [place] [phone] (Wo rk) documented as of this encounter Visit Diagnoses Not on filedocumented in this encounter Care Teams Manager Treasury Relationship Specialty Start Date End Date Elsewhere, Pcp PCP - General Family Medicine 01/30/21 documented as of this encounter
--- OUTSIDE RECORDS SUMMARY | 2021-12-18 15:59 | XMS_ITS | Encounter Summary ---
:1950 Author Organization [facility] Address [address] [place] [address] Care Team Providers Name Role Phone Elsewhere, Pcp Primary Care Provider Unavailable Encounter Details Date Type Department Care Team Description 09/09/2021 Hospital Encounter Department of Radiation La George, Oncology in [facility] [address] [facility] [address] [place] [address] [phone] Social History Tobacco Use Types Packs/Day Years [...] 06/27/2021 relatives? How often do you attend buddhist or moravian 1 to 4 times per year 06/27/2021 services? Do you belong to any clubs or organizations such No 06/27/2021 as buddhist groups, unions, fraternal or athletic groups, or [...] the highest level of school Associate degree: [employer] program 06/27/2021 you have completed or the [...] Radiation Oncology Low George M.D. [address] [place], [place] [phone] (Wo rk) documented as of this encounter Visit Diagnoses Not on filedocumented in this encounter Care Teams Inspector Printed Circuit Boards Relationship Specialty Start Date End Date Elsewhere, Pcp PCP - General Family Medicine 01/30/21 documented as of this encounter
--- OUTSIDE RECORDS SUMMARY | 2021-12-18 15:59 | XMS_ITS | Encounter Summary ---
:1950 Author Organization [facility] Address [address] [place] [address] Care Team Providers Name Role Phone Elsewhere, Pcp Primary Care Provider Unavailable Encounter Details Date Type Department Care Team Description 08/27/2021 Hospital Encounter Department of Radiation La George, Oncology in [facility] [address] [facility] [address] [place] [address] [phone] Social History Tobacco Use Types Packs/Day Years [...] 06/27/2021 relatives? How often do you attend nondenominational or jew 1 to 4 times per year 06/27/2021 services? Do you belong to any clubs or organizations such No 06/27/2021 as nondenominational groups, unions, fraternal or athletic groups, or [...] place to sleep or slept in a [facility] (including now)? Education Answer Date Recorded What is the highest level of school Associate degree: [employer] program 06/27/2021 you have completed or the [...] Radiation Oncology Low George M.D. [address] [place], [place] [phone] (Wo rk) documented as of this encounter Visit Diagnoses Not on filedocumented in this encounter Care Teams Beading Machine Operator Relationship Specialty Start Date End Date Elsewhere, Pcp PCP - General Family Medicine 01/30/21 documented as of this encounter
--- OUTSIDE RECORDS SUMMARY | 2021-12-18 15:59 | XMS_ITS | Encounter Summary ---
:1950 Author Organization [facility] Address [address] [place] [address] Care Team Providers Name Role Phone Elsewhere, Pcp Primary Care Provider Unavailable Encounter Details Date Type Department Care Team Description 09/04/2021 Hospital Encounter Department of Radiation La George, Oncology in [facility] [address] [facility] [address] [place] [phone] Social History Tobacco Use Types Packs/Day Years [...] 06/27/2021 relatives? How often do you attend latter-day or quaker 1 to 4 times per year 06/27/2021 services? Do you belong to any clubs or organizations such No 06/27/2021 as latter-day groups, unions, fraternal or athletic groups, or [...] the highest level of school Associate degree: [employer] program 06/27/2021 you have completed or the [...] Radiation Oncology Low George M.D. [address] [place], [place] [phone] (Wo rk) documented as of this encounter Visit Diagnoses Not on filedocumented in this encounter Care Teams Quality Director Relationship Specialty Start Date End Date Elsewhere, Pcp PCP - General Family Medicine 01/30/21 documented as of this encounter
--- OUTSIDE RECORDS SUMMARY | 2021-12-18 15:59 | XMS_ITS | Encounter Summary ---
:1950 Author Organization [facility] Address [address] [place] [address] Care Team Providers Name Role Phone Elsewhere, Pcp Primary Care Provider Unavailable Reason for Referral Radiation Therapy (Routine) - Authorized Specialty Diagnoses / Procedures Referred By Contact Refer red To Contact Diagnoses Primary Malignant Neoplasm Of Prostate (HCC) [place] George M.D. [facility] Procedures Management Visit [address] [place] [phone] Referral ID Status Reason Start Date Expiration Date Visits V isits Requested Authorized [id number] Authorized 07/25/2021 07/25/2022 10 10 Reason for Visit Radiation Therapy (Routine) - Authorized Specialty Diagnoses / Procedures Referred By Contact Refer red To Contact Diagnoses Primary Malignant Neoplasm Of Prostate (HCC) London George M.D. [facility] Procedures Management Visit [address] [place] [phone] Referral ID Status Reason Start Date Expiration Date Visits V isits Requested Authorized [id number] Authorized 07/25/2021 07/25/2022 10 10 Encounter Details Date Type Department Care Team Description 09/03/2021 Hospital Encounter Department of Faith Mcdermott Malignant Radiation Oncology Osmin Prakash Neoplasm Of Prostate in [place], [address] [facility] (HCC) [place], [place] [address] [facility] [address] [place], [place] [phone] (Work) [phone] Social History Tobacco Use Types Packs/Day Years [...] How often do you attend nondenominational or anabaptist 1 to 4 times per year 06/27/2021 [...] highest level of school Associate degree: [employer] program 06/27/2021 you have completed or the highest degree you have received? Sex Assigned at Date Recorded Male 06/27/2021 1:28 PM CDT documented as of this encounter Last Filed Vital Signs Vital Sign Reading Time Taken Comments Blood Pressure - - Pulse - - Temperature 35.8 ??C (96.5 ??F) 09/03/2021 11:10 AM CDT Respiratory Rate - - Oxygen Saturation - - Inhaled Oxygen Concentration - - Weight 86.7 kg (191 lb 2.2 oz) 09/03/2021 11:10 AM CDT Height - - Body Mass Index 30.36 01/30/2021 11:48 AM TAXATION INSPECTOR documented in this encounter Medications at Time [...] encounter Progress Notes Faith Mcdermott M.D. - 09/03/2021 10:00 AM CDT ATTESTATION FOR MANAGEMENT VISIT I saw and evaluated the patient and participated in the [place] portions of the service as noted below. I reviewed the documentation of Ms. Chey Mcghee RN and agree with the findings and plan. The patient appears well on exam. We will continue with radiation as planned and monitor weekly. Faith Mcdermott M.D., 09/03/2021 SUBJECTIVE REASON FOR VISIT Evaluation for side effects while receiving radiation treatment for No diagnosis found. SUPERVISED BY: Dr. Mcdermott HISTORY OF PRESENT ILLNESS Mr. Cory Barton is a 70-year-old male with persistently positive PSA following prostatectomy. ??He is now undergoing salvage radiotherapy with a long course of ADT (aiming for 18-36 months ofandrogen deprivation therapy).? Treatment Course: 1xProstBed Plan ID Fractions Dose / Fraction (cGy) Dose Treated (cGy) Dose Planned (cGy) First Treatment Last Treatment Elapsed Days [id number] 200 4000 5000 08/05/2021 08/30/2021 25 Course Summary 08/05/2021 08/30/2021 The patient was seen and examined today with Dr. Mcdermott. The patient reports doing well overall. Nocturia is occurring every 2 hours which is slightly similar to what it has been. He denies diarrhea, dysuria, hematuria or rectal [...] as can be): 10 OBJECTIVE Temp (!) 35.8 ??C (Temporal) Wt 86.7 kg BMI 30.36 kg/m?? PHYSICAL EXAM General: Alert and oriented [...] mg injection??on August 05, 2021 at [facility] #4 Stress urinary incontinence following [...] avoid stomach upset. His primary provider, Dr. Cho, has sent in prescription for potassium to manage his hypokalemia (instead ofspironolactone). Patient has appointment with Dr. White on September 16 to follow up on abiraterone. Hewill continue with radiation treatment as planned. Radiation Oncology [place] can be contacted atanytime for any questions or concerns. Signed by: Chey Mcghee R.N. 09/03/2021 2:18 PM CDT documented in this encounter Plan of Treatment Upcoming Encounters Date Type Specialty Care Team Description 12/23/2021 Appointment Radiation Oncology Low George M.D. [address] [place] [phone] (Wo rk) Scheduled Orders Name Type Priority Associated Diagnoses Order S chedule Management Visit Radiation Oncology Routine Primary Malignant Once for 1 Neoplasm Of Prostate Occurre nces starting (HCC) 09/03/2021 unti l 09/03/2021 documented as of this encounter Visit Diagnoses Diagnosis Primary Malignant Neoplasm Of Prostate ( HCC) documented in this encounter Care Teams Surfboard Designer Relationship Specialty Start Date End Date Elsewhere, Pcp PCP - General Family Medicine 01/30/21 documented as of this encounter
--- OUTSIDE RECORDS SUMMARY | 2021-12-18 15:59 | XMS_ITS | Encounter Summary ---
:1950 Author Organization [facility] Address [address] [place] [address] Care Team Providers Name Role Phone Elsewhere, Pcp Primary Care Provider Unavailable Encounter Details Date Type Department Care Team Description 08/28/2021 Hospital Encounter Department of Radiation [place] George, Oncology in [facility] [address] [facility] [address] [place] [phone] Social History Tobacco Use Types Packs/Day Years [...] 06/27/2021 relatives? How often do you attend alevism or yarsanism 1 to 4 times per year 06/27/2021 services? Do you belong to any clubs or organizations such No 06/27/2021 as alevism groups, unions, fraternal or athletic groups, or [...] place to sleep or slept in a prison (including now)? Education Answer Date Recorded What is the highest level of school Associate degree: [employer] program 06/27/2021 you have completed or the [...] Radiation Oncology Low George M.D. [address] [place], [place] [phone] (Wo rk) documented as of this encounter Visit Diagnoses Not on filedocumented in this encounter Care Teams Mammalogist Relationship Specialty Start Date End Date Elsewhere, Pcp PCP - General Family Medicine 01/30/21 documented as of this encounter
--- OUTSIDE RECORDS SUMMARY | 2021-12-18 16:00 | XMS_ITS | Encounter Summary ---
:1950 Author Organization [facility] Address [address] [place] [address] Care Team Providers Name Role Phone Elsewhere, Pcp Primary Care Provider Unavailable Encounter Details Date Type Department Care Team Description 08/07/2021 Orders Only [place] M[place]D[facility]varez [address] [facility] [address] [place] [address] [place], [place] [phone] (Wo rk) Social History Tobacco Use Types [...] 06/27/2021 relatives? How often do you attend rastafarian or congregation 1 to 4 times per year 06/27/2021 services? Do you belong to any clubs or organizations such No 06/27/2021 as rastafarian groups, unions, fraternal or athletic groups, or [...] highest level of school Associate degree: [employer] program 06/27/2021 you have completed or the highest degree you have received? Sex Assigned at Date Recorded Male 06/27/2021 1:28 PM CDT documented as of this encounter Plan of Treatment Upcoming Encounters Date Type Specialty Care Team Description 12/23/2021 Appointment Radiation Oncology Low George M.D. [address] [place], [place] [phone] (Wo rk) documented as of this encounter Visit Diagnoses Not on filedocumented in this encounter Care Teams Clerical Grader Relationship Specialty Start Date End Date Elsewhere, Pcp PCP - General Family Medicine 01/30/21 documented as of this encounter
--- OUTSIDE RECORDS SUMMARY | 2021-12-18 16:00 | XMS_ITS | Encounter Summary ---
:1950 Author Organization [facility] Address [address] [place] [address] Care Team Providers Name Role Phone Elsewhere, Pcp Primary Care Provider Unavailable Encounter Details Date Type Department Care Team Description 08/07/2021 Hospital Encounter Department of Radiation [place], Oncology in [facility] [address] [facility] [address] [place] [address] [phone] Social History Tobacco Use Types Packs/Day Years [...] 06/27/2021 relatives? How often do you attend hinduism or spiritism 1 to 4 times per year 06/27/2021 services? Do you belong to any clubs or organizations such No 06/27/2021 as hinduism groups, unions, fraternal or athletic groups, or [...] place to sleep or slept in a long-term (including now)? Education Answer Date Recorded What is the highest level of school Associate degree: [employer] program 06/27/2021 you have completed or the highest degree you have received? Sex Assigned at Date Recorded Male 06/27/2021 1:28 PM CDT documented as of this encounter Medications at Time of Discharge Medication Sig Dispensed Refills Start Date End Date acetaminophen (TYLENOL) Take 2 tablets 0 02/01/20 21 500 mg tablet (1,000 mg total) by mouth every 6 (six) hours as needed for pain. amLODIPine (NORVASC) 10 Take 10 mg by mouth 0 mg tablet daily. aspirin [address] tablet [...] as 0 05/18/2020 (VOLTAREN) 50 mg EC needed tablet lancets 2 times daily. 0 05/22/2020 lisinopriL Take 40 mg by mouth 0 05/18/2020 (PRINIVIL,ZESTRIL) 40 mg at bedtime. tablet metoprolol tartrate Twice A Day 0 05/18/2020 (LOPRESSOR) 50 mg tablet triamterene-hydroCHLOROth Take 1 tablet by 0 07/31 iazide (MAXZIDE-25) mouth daily. 37.5-25 mg per tablet polyethylene glycol Take 1 packet (17 g 0 021 08/12/2021 (MIRALAX) 17 gram powder total) by mouth packet daily as needed for constipation. Dissolve each 17 g dose in 240 mLs (8 ounces) of beverage. documented as of this encounter Plan of Treatment Upcoming Encounters Date Type Specialty Care Team Description 12/23/2021 Appointment Radiation Oncology Low George M.D. [address] [place], [place] [phone] (Wo rk) documented as of this encounter Visit Diagnoses Not on filedocumented in this encounter Care Teams Beverage Specialist Relationship Specialty Start Date End Date Elsewhere, Pcp PCP - General Family Medicine 01/30/21 documented as of this encounter
--- OUTSIDE RECORDS SUMMARY | 2021-12-18 16:00 | XMS_ITS | Encounter Summary ---
:1950 Author Organization [facility] Address [address] [place] [address] Care Team Providers Name Role Phone Elsewhere, Pcp Primary Care Provider Unavailable Encounter Details Date Type Department Care Team Description 08/16/2021 Hospital Encounter Department of Radiation [place], Oncology in [facility] [address] [facility] [address] [place] [address] [phone] Social History Tobacco Use Types Packs/Day Years [...] 06/27/2021 relatives? How often do you attend sabianism or restoration 1 to 4 times per year 06/27/2021 services? Do you belong to any clubs or organizations such No 06/27/2021 as sabianism groups, unions, fraternal or athletic groups, or [...] the highest level of school Associate degree: [employer] program 06/27/2021 you have completed or the highest degree you have received? Sex Assigned at Date Recorded Male 06/27/2021 1:28 PM CDT documented as of this encounter Medications at Time of Discharge Medication Sig Dispensed Refills Start Date End Date abiraterone (ZYTIGA) 250 Take 4 tablets 120 tablet 11 022 mg tabletIndications: (1,000 mg total) by Primary Malignant mouth daily. Take Neoplasm Of Prostate on an empty stomach (HCC) (1 hour before or 2 hours after food). acetaminophen (TYLENOL) Take 2 tablets 0 02/01/20 21 500 mg tablet (1,000 mg total) by mouth every 6 (six) hours as needed for pain. amLODIPine (NORVASC) 10 Take 10 mg by mouth 0 mg tablet daily. aspirin [address] tablet Hold for one week 0 01/31 post-surgery bicalutamide (CASODEX) 50 Take 1 tablet (50 21 tablet 0 mg tablet mg total) by mouth daily. Take at the [...] mg tabletIndications: total) by mouth Primary Malignant daily. Neoplasm Of Prostate (HCC) triamterene-hydroCHLOROth Take 1 tablet by 0 07/31 iazide (MAXZIDE-25) mouth daily. 37.5-25 mg per tablet abiraterone (ZYTIGA) 250 Take 4 tablets 120 tablet 11 022 08/19/2021 mg tablet (1,000 mg total) by mouth daily. Take on an empty stomach (1 hour before or 2 hours after food). predniSONE (DELTASONE) 5 Take 1 tablet (5 mg 90 tablet 3 08/19/2021 mg tablet total) by mouth daily. documented as of this encounter Plan of Treatment Upcoming Encounters Date Type Specialty Care Team Description 12/23/2021 Appointment Radiation Oncology Low George M.D. [address] [place] [phone] (Wo rk) documented as of this encounter Visit Diagnoses Not on filedocumented in this encounter Care Teams Network Program Manager Relationship Specialty Start Date End Date Elsewhere, Pcp PCP - General Family Medicine 01/30/21 documented as of this encounter
--- OUTSIDE RECORDS SUMMARY | 2021-12-18 16:00 | XMS_ITS | Encounter Summary ---
:1950 Author Organization [facility] Address [address] [place] [address] Care Team Providers Name Role Phone Elsewhere, Pcp Primary Care Provider Unavailable Reason for Referral Specialty Diagnoses / Procedures Referred By Contact Refer red To Contact Yenny Suarez P.A.-C ., M.S. [facility] Region [address] [place] [phone] Referral ID Status Reason Start Date Expiration Date Visits Requ ested Visits Authorized Encounter Details Date Type Department Care Team Description 08/12/2021 Hospital Encounter Department of Low George M.D. [address] [place] [phone] Primary Malignant Radiation Oncology Chey Mcghee RAaliyah [address] [place] [phone] Neoplasm Of Prostate in [place], (HCC) [place] [address] [place] [phone] Social History Tobacco Use Types Packs/Day Years [...] 06/27/2021 relatives? How often do you attend zoroastrianism or rastafarian 1 to 4 times per year 06/27/2021 services? Do you belong to any clubs or organizations such No 06/27/2021 as zoroastrianism groups, unions, fraternal or athletic groups, or [...] highest level of school Associate degree: [employer] program 06/27/2021 you have completed or the highest degree you have received? 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 [address] [place], [place] [phone] (Wo rk) Scheduled Referrals Name Type Priority Associated Order Schedule Diagnoses Radiation Oncology Outpatient Referral Routine Primary Maligna nt Once for 1 - Nurse education Neoplasm Of Occurrence s starting visit (clinic) Prostate (HCC) 08/12/2021 until 08/12/2021 documented as of this encounter Visit Diagnoses Diagnosis Primary Malignant Neoplasm Of Prostate ( HCC) documented in this encounter Care Teams Heater Planer Operator Relationship Specialty Start Date End Date Elsewhere, Pcp PCP - General Family Medicine 01/30/21 documented as of this encounter
--- OUTSIDE RECORDS SUMMARY | 2021-12-18 16:00 | XMS_ITS | Encounter Summary ---
:1950 Author Organization [facility] Address [address] [place] [address] Care Team Providers Name Role Phone Elsewhere, Pcp Primary Care Provider Unavailable Reason for Referral MRI/CAT/PET Scan (Routine) - Closed Specialty Diagnoses / Procedures Referred By Contact Refer red To Contact Diagnoses Primary Malignant Neoplasm Of Prostate (HCC) Funmi Montano APRN, [facility] Procedures PET CT Choline C.N.P. [address] [place] [phone] Referral ID Status Reason Start Date Expiration Date Visits Requ ested Visits Authorized [id number] Closed 06/27/2021 06/27/2022 1 1 Reason for Visit MRI/CAT/PET Scan (Routine) - Closed Specialty Diagnoses / Procedures Referred By Contact Refer red To Contact Diagnoses Primary Malignant Neoplasm Of Prostate (HCC) Funmi Montano APRN, [facility] Procedures PET CT [place] C.N.P. [address] [place] [phone] Referral ID Status Reason Start Date Expiration Date Visits Requ ested Visits Authorized [id number] Closed 06/27/2021 06/27/2022 1 1 Encounter Details Date Type Department Care Team Description 07/02/2021 Hospital Encounter Department of Funmi Montano Malignant Radiology, Kristofer Santos APRN, C.N .P. Neoplasm Of Prostate Building, in [address] [place] [address] (HCC) [place], [place] 200 [facility] [address] [place], [place] [phone] (Work) [phone] Social History Tobacco Use Types Packs/Day Years [...] 06/27/2021 relatives? How often do you attend oriental orthodox or sabianist 1 to 4 times per year 06/27/2021 services? Do you belong to any clubs or organizations such No 06/27/2021 as oriental orthodox groups, unions, fraternal or athletic groups, or [...] highest level of school Associate degree: [employer] program 06/27/2021 you have completed or [...] Radiation Oncology Low George M.D. [address] [place], [place] [phone] (Wo rk) documented as of this encounter Procedures Procedure Name Priority Date/Time Associated Comments Diagnosis PET CT CHOLINE RAD - Routine 07/02/2021 1:32 Primary Malignant Resu lts for this (most inpatients PM CDT Neoplasm Of procedure a re in and all Prostate (HCC) the results outpatients) section. documented in this encounter Results PET CT Choline (07/02/2021 1:32 PM CDT) Anatomical Region Laterality Modality Body, Nuclear Medicine PET RST LOS, N/A Posi maurice Emission Tomography (PET), PET ARZ LOS, Nuclear Medicine PET FLA Po sitron Emission Tomography (PET) LOS, Nuclear Medicine Specimen (Source) Anatomical Collection Method Collection Time Re ceived Time Location / / Volume Laterality 07/02/2021 2:48 PM CDT Impressions 07/02/2021 3:04 PM CDT Choline avid lymph nodes in the lower pelvis, concerning for metastatic disease. Several enlarged fusion screen captures provided. Narrative 07/02/2021 3:04 PM CDT EXAM: ??PET CT CHOLINE RADIOPHARMACEUTICAL/MEDS: Route: intravenous choline C 11 injection (CHOLINE C-11),18 .24 millicurie TECHNIQUE: ??C-11 Choline PET/CT scan wa s performed from the orbits through the thighs with low dose, non-contrast, free-breathing CT images f or attenuation correction and anatomic localization (AC/AL), with imaging beginning at approximately 5 minutes after radiotracer injection. COMPARISON: ??Prior prostate MRI 021. INDICATION: ??Resected prostate malignan cy persistent mildly elevated PSA at 1.9. Initial treatment strategy. The patient reports no recent vaccinatio ns. FINDINGS: ??Excreted tracer within the b ladder but no obvious abnormal uptake in the prostatectomy bed. Small mildly choline avid lymph nodes in the mid right external iliac and distal left external iliac regions, concerning for metastases. Max tional more intense choline avid distal external right iliac lymph nodes. No other choline avid lymph nodes in the abdomen or pelvis. Mild uptake in the pulmonary left perihilar area is likely reactive. No choline avid bone lesions identified. Injection artifact in the left upper limb. Additional incidental CT findings: Renal cysts. Small fat-containing inguinal hernias. Colonic diverticula. Cholecystectomy. Minor vasc ular calcifications. Mild atelectasis in the lung bases. Tiny 2 to 3 mm anterolateral nodule righ t middle lobe. Procedure Note Maximilian Glover M.D. - 07/02/2021Format ting of this note might be different from the original. EXAM: PET CT CHOLINE RADIOPHARMACEUTICAL/MEDS: Route: intravenous choline C 11 injection (CHOLINE C-11),18 .24 millicurie TECHNIQUE: C-11 Choline PET/CT scan was performed from the orbits through the thighs with low dose, non-contrast, free-breathing CT images f or attenuation correction and anatomic localization (AC/AL), with imaging beginning at approximately 5 minutes after radiotracer injection. COMPARISON: Prior prostate MRI . INDICATION: Resected prostate malignancy persistent mildly elevated PSA at 1.9. Initial treatment strategy. The patient reports no recent vaccinatio ns. FINDINGS: Excreted tracer within the alverto dder but no obvious abnormal uptake in the prostatectomy bed. Small mildly choline avid lymph nodes in the mid right external iliac and distal left external iliac regions, concerning for metastases. Max tional more intense choline avid distal external right iliac lymph nodes. No other choline avid lymph nodes in the abdomen or pelvis. Mild uptake in the pulmonary left perihilar area is likely reactive. No choline avid bone lesions identified. Injection artifact in the left upper limb. Additional incidental CT findings: Renal cysts. Small fat-containing inguinal hernias. Colonic diverticula. Cholecystectomy. Minor vasc ular calcifications. Mild atelectasis in the lung bases. Tiny 2 to 3 mm anterolateral nodule righ t middle lobe. IMPRESSION: Choline avid lymph nodes in the lower pe lvis, concerning for metastatic disease. Several enlarged fusion screen captures provided. Funmi Montano APRN, C.N.P. [facility] documented in this encounter Visit Diagnoses Diagnosis Primary Malignant Neoplasm Of Prostate ( HCC) documented in this encounter Administered Medications Inactive Administered Medications - up to 3 most recent administrations Medication Order MAR Action Action Date Dose Rate Site choline C 11 injection Given 07/02/2021 12:48 PM 18.24 millicuri es (CHOLINE C-11) CDT 18.24 millicurie, intravenous, Once, On Thu07/02/21 at 1300, For 1 dose documented in this encounter Care Teams Industrial Spraypainter Relationship Specialty Start Date End Date Elsewhere, Pcp PCP - General Family Medicine 01/30/21 documented as of this encounter
--- OUTSIDE RECORDS SUMMARY | 2021-12-18 16:00 | XMS_ITS | Encounter Summary ---
:1950 Author Organization [facility] Address [address] [place] [address] Care Team Providers Name Role Phone Elsewhere, Pcp Primary Care Provider Unavailable Encounter Details Date Type Department Care Team Description 08/08/2021 Hospital Encounter Department of Radiation [place], Oncology in [facility] [address] [facility] [address] [place] [phone] Social History Tobacco Use Types Packs/Day Years [...] 06/27/2021 relatives? How often do you attend tenriism or christian 1 to 4 times per year 06/27/2021 services? Do you belong to any clubs or organizations such No 06/27/2021 as tenriism groups, unions, fraternal or athletic groups, or [...] place to sleep or slept in a care home (including now)? Education Answer Date Recorded What is the highest level of school Associate degree: [employer] program 06/27/2021 you have completed or the [...] 250 Take 4 tablets 120 tablet 11 06/09/2 022 08/19/2021 mg tablet (1,000 mg total) by mouth daily. Take on an empty stomach (1 hour before or 2 hours after food). polyethylene glycol Take 1 packet (17 g 0 021 08/12/2021 (MIRALAX) 17 gram powder total) by mouth packet daily as needed for constipation. Dissolve each 17 g dose in 240 mLs (8 ounces) of beverage. predniSONE (DELTASONE) 5 Take 1 tablet (5 mg 90 tablet 3 08/19/2021 mg tablet total) by mouth daily. documented as of this encounter Plan of Treatment Upcoming Encounters Date Type Specialty Care Team Description 12/23/2021 Appointment Radiation Oncology Low George M.D. 200 [place], [place] [phone] (Wo rk) documented as of this encounter Visit Diagnoses Not on filedocumented in this encounter Care Teams Electronic Court Recorder Relationship Specialty Start Date End Date Elsewhere, Pcp PCP - General Family Medicine 01/30/21 documented as of this encounter
--- OUTSIDE RECORDS SUMMARY | 2021-12-18 16:00 | XMS_ITS | Encounter Summary ---
:1950 Author Organization [facility] Address [address] [place] [address] Care Team Providers Name Role Phone Elsewhere, Pcp Primary Care Provider Unavailable Encounter Details Date Type Department Care Team Description 07/02/2021 Hospital Encounter Department of Funmi Montano Malignant Laboratory Medicine M, COST ACCOUNTING ANALYST, C.N .P. Neoplasm Of Prostate and Pathology, [address] [place] [address] ([facility] in [place], [place] [phone] [place] [address] [place], [place] (Work) [phone] Social History Tobacco Use Types Packs/Day Years [...] 06/27/2021 relatives? How often do you attend scientologist or confucianist 1 to 4 times per year 06/27/2021 services? Do you belong to any clubs or organizations such No 06/27/2021 as scientologist groups, unions, fraternal or athletic groups, or [...] for the very basics like Not h chareltte at all 06/27/2021 food, housing, medical care, [...] highest level of school Associate degree: academ [employer] program 06/27/2021 you have completed or the [...] Radiation Oncology Low George M.D. [address] [place], [place] [phone] (Wo rk) documented as of this encounter Procedures Procedure Name Priority Date/Time Associated Diagnosis Comme nts PROSTATE-SPECIFIC Routine 07/02/2021 10:49 AM Primary Malignan t Results for this AG (PSA) CDT Neoplasm Of Prostate procedu re are in DIAGNOSTIC, S (HCC) the results section. documented in this encounter Results PSA (Prostate-Specific Antigen), Diagnostic (07/02/2021 10:49 AM CDT) P athologist Signature Prostate-Specif 1.9 <=6.5 ng/mL 07/02/2021 DTL ic Ag 3:10 PM CDT Comment: ----ADDITIONAL INFORMATION---- The testing method is an electrochemilum inescence assay manufactured by [employer] and performed on the Modular or Denise system . Values obtained with different assay met hods or kits may be different and cannot be used inte rchangeably. Test results cannot be interpreted as ab solute evidence for the presence or absence of malignant disease. Specimen Anatomical Collection Method Collection Time Receive d Time (Source) Location / / Volume Laterality Blood (Blood, 07/02/2021 10:49 07/02/2021 2:04 Venous) AM CDT PM CDT Funmi Montano APRN, C.N.P. LAB BLOOD ADD-ON Performing Organization Address City/State/ZIP Code Phon e Number [facility] - [address] [place], [place] [address] [facility] [place] [address] [facility] [address] [facility] documented in this encounter Visit Diagnoses Diagnosis Primary Malignant Neoplasm Of Prostate ( HCC) documented in this encounter Care Teams Temple Marker Relationship Specialty Start Date End Date Elsewhere, Pcp PCP - General Family Medicine 01/30/21 documented as of this encounter
--- OUTSIDE RECORDS SUMMARY | 2021-12-18 16:00 | XMS_ITS | Encounter Summary ---
:1950 Author Organization [facility] Address [address] [place] [address] Care Team Providers Name Role Phone Elsewhere, Pcp Primary Care Provider Unavailable Reason for Visit Reason Comments Appointment Encounter Details Date Type Department Care Team Description 07/30/2021 Clinical Communication Department of Oncology Nancy Arnold Appointment in [facility] florida Erwin M.D. [address] [facility] [address] [place] [phone] Social History Tobacco Use Types Packs/Day Years [...] How often do you attend taoism or presybeterian 1 to 4 times per year 06/27/2021 [...] highest level of school Associate degree: academ [employer] program 06/27/2021 you have completed or the highest degree you have received? Sex Assigned at Date Recorded Male 06/27/2021 1:28 PM CDT documented as of this encounter Plan of Treatment Upcoming Encounters Date Type Specialty Care Team Description 12/23/2021 Appointment Radiation Oncology Low George M.D. [address] [place], [place] [phone] (Wo rk) documented as of this encounter Visit Diagnoses Not on filedocumented in this encounter Care Teams Coremaker Helper Relationship Specialty Start Date End Date Elsewhere, Pcp PCP - General Family Medicine 01/30/21 documented as of this encounter
--- OUTSIDE RECORDS SUMMARY | 2021-12-18 16:00 | XMS_ITS | Encounter Summary ---
:[address] [facility] Address [address] [place] [address] Care Team Providers Name Role Phone Elsewhere, Pcp Primary Care Provider Unavailable Encounter Details Date Type Department Care Team Description 08/09/2021 Hospital Encounter Department of Radiation [place] George, Oncology in [facility] [address] [facility] [address] [place] [phone] Social History Tobacco Use Types Packs/Day Years [...] How often do you attend methodist or protestant 1 to 4 times per year 06/27/2021 [...] the highest level of school Associate degree: [employer] program 06/27/2021 you have completed or the [...] Appointment Radiation Oncology Low George M.D. 200 [place], [place] [phone] (Wo rk) documented as of this encounter Visit Diagnoses Not on filedocumented in this encounter Care Teams Escrow Manager Relationship Specialty Start Date End Date Elsewhere, Pcp PCP - General Family Medicine 01/30/21 documented as of this encounter
--- OUTSIDE RECORDS SUMMARY | 2021-12-18 16:00 | XMS_ITS | Encounter Summary ---
:1950 Author Organization [facility] Address [address] [place] [address] Care Team Providers Name Role Phone Elsewhere, Pcp Primary Care Provider Unavailable Reason for Referral Radiation Therapy (Routine) - Authorized Specialty Diagnoses / Procedures Referred By Contact Refer red To Contact Diagnoses Primary Malignant Neoplasm Of Prostate (HCC) London George M.D. [facility] Procedures Management Visit [address] [place] [phone] Referral ID Status Reason Start Date Expiration Date Visits V isits Requested Authorized [id number] Authorized 07/25/2021 07/25/2022 10 10 Reason for Visit Radiation Therapy (Routine) - Authorized Specialty Diagnoses / Procedures Referred By Contact Refer red To Contact Diagnoses Primary Malignant Neoplasm Of Prostate (HCC) [place] [facility]. [facility] Procedures Management Visit [address] [place] [phone] Referral ID Status Reason Start Date Expiration Date Visits V isits Requested Authorized [id number] Authorized 07/25/2021 07/25/2022 10 10 Encounter Details Date Type Department Care Team Description 08/14/2021 Hospital Encounter Department of London George Malignant Radiation Oncology [facility]min Costello Neoplasm Of Prostate in [place], [address] [facility] ([facility]) [place], [place] [address] [facility] [address] [place], [place] [phone] (Work) [phone] Social History Tobacco Use Types Packs/Day Years [...] 06/27/2021 relatives? How often do you attend yazidi or adventism 1 to 4 times per year 06/27/2021 services? Do you belong to any clubs or organizations such No 06/27/2021 as yazidi groups, unions, fraternal or athletic groups, or [...] highest level of school Associate degree: academ [employer] program 06/27/2021 you have completed or the highest degree you have received? Sex Assigned at Date Recorded Male 06/27/2021 1:28 PM CDT documented as of this encounter Last Filed Vital Signs Vital Sign Reading Time Taken Comments Blood Pressure - - Pulse - - Temperature 36.1 ??C (96.9 ??F) 08/14/2021 12:58 PM CDT Respiratory Rate - - Oxygen Saturation - - Inhaled Oxygen Concentration - - Weight 88 kg (194 lb 0.1 oz) 08/14/2021 12:58 PM CDT Height - - Body Mass Index 30.81 01/30/2021 11:48 AM CARDIAC EXERCISE SPECIALIST documented in this encounter Medications at [...] mouth daily. documented as of this encounter Progress Notes Yenny Suarez P.A.-C., M.S. - 08/14/2021 1:00 PM CDT SUBJECTIVE REASON FOR VISIT Evaluation for side effects while receiving radiation treatment for 1. Primary Malignant Neoplasm Of Prostate (HCC) SUPERVISED BY: London George M.D. ([id number]) HISTORY OF PRESENT ILLNESS Mr. Cory Barton is a 70-year-old male with persistently positive PSA following prostatectomy. He is now undergoing salvage radiotherapy with a long course of ADT (aiming for 18-36 months of androgen deprivation therapy). Treatment Course: 1xProstBed Plan ID Fractions Dose / Fraction (cGy) Dose Treated (cGy) Dose Planned (cGy) First Treatment Last Treatment Elapsed Days [id number] 200 1600 5000 08/05/2021 08/14/2021 9 Course Summary 08/05/2021 08/14/2021 9 The patient was seen and examined today with Dr. George. The patient reports doing well overall. He reports occasional headaches that are mild and resolve ontheir own. He reports good urination overall. He denies dysuria or hematuria. He does report increased urinary frequency with nocturia x 4. He reports regular bowel movements. He denies diarrhea or rectal bleeding. He reports feeling warm on occasion, but denies hot flashes. He is taking calcium and vitamin D supplementation as recommended. He reports that he already takes potassium pills, but is unsure on the dose. He has questions regarding abiraterone. PATIENT REPORTED SYMPTOM SCREEN FATIGUE (Scale: 0 = no fatigue; 10 = worst fatigue you can imagine): 1 PAIN (Scale: 0 = no pain; 10 = worst pain you can imagine): 0 OVERALL QUALITY OF LIFE (Scale: 0 = as bad as can be; 10 = as good as can be): 10 OBJECTIVE Temp 36.1 ??C (Temporal) Wt 88 kg BMI 30.81 [...] mg injection on August 05, 2021 at [facility]4 Stress urinary incontinence following prostatectomy, scant [...] is tolerating radiation treatment well overall. He has experienced increased urinary frequency that is overall manageable. He also reports feeling warm on occasion, but denies hot flashes. We reviewed his bone density scan result showing osteopenia. He is taking calcium and vitamin D supplementation as recommended. He had multiple questions regarding abiraterone and cost today. He has notyet received the medication. He was recommended to call or send a portal message to Dr. Arnold's team for further discussion on abiraterone. We also reviewed his low potassium level from his recent blood draw. He reports that he already takes potassium pills, but was unsure of the dosage. He was recommended to follow-up with his primary provider, Dr. Cho, for discussion on his recent lab result as well as recommendations for any needed treatment. He will continue with radiation treatment as planned. Signed by: Yenny Suarez P.A.-C., M.S. 08/14/2021 2:02 PM CDT Associated attestation - London George M.D. - 08/14/2021 2:15 PM CDT I saw and evaluated the patient and participated in the [place] portions of the service. I reviewed the documentation of Yenny Suarez P.A.-C. and agree with the findings and plan. The patient appears well onexam. He will follow-up with his primary provider for his hypokalemia prior to initiation of abiraterone. He has further questions with regard to abiraterone that we directed to Dr. Arnold He will continue with treatment as planned. Signed by: London George M.D. 08/14/21 2:15 PM CDT [facility] [place] documented in this encounter Plan of Treatment Upcoming Encounters Date Type Specialty Care Team Description 12/23/2021 Appointment Radiation Oncology Low George M.D. [address] [place], [place] [phone] (Wo rk) Scheduled Orders Name Type Priority Associated Diagnoses Order S chedule Management Visit Radiation Oncology Routine Primary Malignant Once for 1 Neoplasm Of Prostate Occurre nces starting (HCC) 08/14/2021 unti l 08/14/2021 documented as of this encounter Visit Diagnoses Diagnosis Primary Malignant Neoplasm Of Prostate ( HCC) documented in this encounter Care Teams Clinical Outcomes Manager Relationship Specialty Start Date End Date Elsewhere, Pcp PCP - General Family Medicine 01/30/21 documented as of this encounter
--- OUTSIDE RECORDS SUMMARY | 2021-12-18 16:00 | XMS_ITS | Encounter Summary ---
:1950 Author Organization [facility] Address [address] [place] [address] Care Team Providers Name Role Phone Elsewhere, Pcp Primary Care Provider Unavailable Encounter Details Date Type Department Care Team Description 08/06/2021 Hospital Encounter Department of Radiation [place] George, Oncology in [facility] [address] [facility] [address] [place] [address] [phone] Social History Tobacco Use Types Packs/Day Years [...] How often do you attend methodist or spiritism 1 to 4 times per [...] place to sleep or slept in a custodial (including now)? Education Answer Date Recorded What is the highest level of school Associate degree: [employer] program 06/27/2021 you have completed or the [...] Radiation Oncology Low George M.D. [address] [place], [place] [phone] (Wo rk) documented as of this encounter Visit Diagnoses Not on filedocumented in this encounter Care Teams Quality Systems Technician Relationship Specialty Start Date End Date Elsewhere, Pcp PCP - General Family Medicine 01/30/21 documented as of this encounter
--- OUTSIDE RECORDS SUMMARY | 2021-12-18 16:00 | XMS_ITS | Encounter Summary ---
:1950 Author Organization [facility] Address [address] [place] [address] Care Team Providers Name Role Phone Elsewhere, Pcp Primary Care Provider Unavailable Encounter Details Date Type Department Care Team Description 08/14/2021 Hospital Encounter Department of Radiation [place] George, Oncology in [facility] [address] [facility] [address] [place] [address] [phone] Social History Tobacco Use Types Packs/Day Years [...] 06/27/2021 relatives? How often do you attend scientology or temple 1 to 4 times per year 06/27/2021 services? Do you belong to any clubs or organizations such No 06/27/2021 as scientology groups, unions, fraternal or athletic groups, or [...] the highest level of school Associate degree: [employer] program 06/27/2021 you have completed or the [...] Radiation Oncology Low George M.D. [address] [place], [place] [phone] (Wo rk) documented as of this encounter Visit Diagnoses Not on filedocumented in this encounter Care Teams Manager Linux Relationship Specialty Start Date End Date Elsewhere, Pcp PCP - General Family Medicine 01/30/21 documented as of this encounter
--- OUTSIDE RECORDS SUMMARY | 2021-12-18 16:00 | XMS_ITS | Encounter Summary ---
:1950 Author Organization [facility] Address [address] [place] [address] Care Team Providers Name Role Phone Elsewhere, Pcp Primary Care Provider Unavailable Reason for Visit Outpatient (Routine) - Closed Specialty Diagnoses / Procedures Referred By Contact Refer red To Contact Medical Oncology / Diagnoses Rising Prostate Specific Antigen Following Treatment For Malignant Cancer Of Prostate Secondary Malignant Neoplasm Intrapelvic Lymph Node (HCC) Nawaf Weiss, [facility] Oncology M.Herber, M.S. [address] [place] [phone] Referral ID Status Reason Start Date Expiration Date Visits Requ ested Visits Authorized [id number] Closed 07/30/2021 07/30/2022 1 1 Encounter Details Date Type Department Care Team Description 08/08/2021 Telemedicine Department of Oncology Nancy Arnold ry Malignant Neoplasm Of Prostate (HCC) (Primary Dx); [place] Rising Prostate Specific Antigen Followi ng Treatment For Malignant Cancer Of Prostate; [place] [address] [facility] Secondary Malignant Neoplasm Intrapelvic Lymph Node (HCC) [address] [place] [phone] Social History Tobacco Use Types Packs/Day Years [...] 06/27/2021 relatives? How often do you attend worship or voodoo 1 to 4 times per year 06/27/2021 services? Do you belong to any clubs or organizations such No 06/27/2021 as worship groups, unions, fraternal or athletic groups, or [...] highest level of school Associate degree: academ [employer] program 06/27/2021 you have completed or the highest degree you have received? Sex Assigned at Date Recorded Male 06/27/2021 1:28 PM CDT documented as of this encounter Consult Notes Nancy Arnold M.D. - 08/08/2021 9:00 AM CDT SUBJECTIVE HISTORY OF PRESENT ILLNESS Mr. Barton is a 70 y.o. male with the following oncologic history: Oncology History Overview Note 1. January 30, 2021: Robot-assisted, laparoscopic, bilateral non-nerve sparing radical prostatectomyand bilateral pelvic lymphadenectomy. Valencia 4+5, pT3a N0 R0. Prep PSA 5.3 2. July 02, 2021: PSA 1.9. PET-CT choline avid mid right external iliac and distal left external iliaclymph node, and in the distal right external [...] B. Left prostate core biopsies: Prostate adenocarcinoma, [place] grade 3 + 3 (grade group 1), less than 1 mm in greatest linear dimension involving 1 of 6 cores / core-like fragments and involving lessthan 5% of the submitted tissue. C. Left apex prostate core biopsies: Prostate adenocarcinoma, Valencia grade 3 + 4 (grade group 2), [...] carcinoma. B. Prostate gland, radical prostatectomy: Adenocarcinoma ([place] pattern 4+5, grade group 5) is identified [...] Acinar adenocarcinoma Histologic Grade Grade Group and [place] Score Grade Group 3 (Valencia Score 4+5=9) Minor Tertiary Pattern 5 (less than 5%): Not applicable Percentage of Pattern 4 in [place] score 7: Not applicable Intraductal Carcinoma (IDC): [...] patient would like to pursue radiotherapy in [place]. A referral was placed. He left the arrangementof ADT and referral to Medical Oncology to Dr. George. 08/05/2021 - Radiation Therapy Radiation Therapy Treatment Details (Noted on 07/25/2021) Site: Prostate - Bed Technique: No technique specified Goal: Curative Planned Treatment Start Date: 08/05/2021 INTERVAL HISTORY: Mr. Barton presents for a video consultation, together with Dr. Jerri Boyd from the internal medicine residency program. We very carefully reviewed the records and explained to the patient the natural history of prostate cancer with particular attention to his stage and grade. We also discussedthat he has hormone sensitive disease, meaning that is very likely that hormonal therapy will be effective. He already started leuprolide and Casodex as well as radiation therapy and were consulted regarding the use of abiraterone. The patient does have hypertension and is taking hydrochlorothiazide plus triamterene and 40 mg of lisinopril per day. He is telling me that his blood pressure is normal but I am looking at the laboratory data and he has on and on decreasing serum potassium, whole 1 from yesterday of 3.3. Otherwise the patient is in very good health, fully active. REVIEW OF SYSTEMS Pertinent items are noted in HPI; all other review of systems were negative. OBJECTIVE VITAL SIGNS There were no vitals filed for this visit. PHYSICAL EXAMINATION DIAGNOSTICS I reviewed the imaging studies and agree with the interpretation as recorded. I reviewed the pertinent laboratory and diagnostic data. ASSESSMENT / PLAN We spent 45 minutes doing this video consultation and I agree with the radiation oncology colleagues, with positive pelvic lymph nodes I is strongly advised to abiraterone. We discussed what abiraterone is an mechanism of action with particular attention to difference between this stroke and leuprolide. We also discussed why prednisone is needed. We discussed potential side effects of the treatment as well as the potential cost. He had his stop Casodex at any time. I sent a prescription to the [facility] for abiraterone, 1000 mg per day plus prednisone 5 mg per day. He will callme if he is able to afford abiraterone and then he will have formal teaching from our nurses. He would like to have follow-up in [facility] Oncology. I will arrange for this. We need to follow-up serum potassium very careful in somebody on lisinopril and a couple of diuretics the, now when we are going to add abiraterone. We will do this a couple of weeks after he starts abiraterone. At this point I suggested for him to talk to his family doctor regarding his low potassium. PATIENT EDUCATION Ready to learn, no apparent learning barriers were identified; learning preferences include listening. Explained diagnosis and treatment plan; patient expressed understanding of the content. ADMINISTRATIVE BILLING I personally spent over half of a total [45] minutes video with the patient in counseling and discussion and/or coordination of care as described above. documented in this encounter Plan of Treatment Upcoming Encounters Date Type Specialty Care Team Description 12/23/2021 Appointment Radiation Oncology Low George M.D. [address] [place] [phone] (Wo rk) documented as of this encounter Visit Diagnoses Diagnosis Primary Malignant Neoplasm Of Prostate ( HCC) - Primary Rising Prostate Specific Antigen Followi ng Treatment For Malignant Cancer Of Prostate Secondary Malignant Neoplasm Intrapelvic Lymph Node (HCC) documented in this encounter Care Teams Layout Inspector Relationship Specialty Start Date End Date Elsewhere, Pcp PCP - General Family Medicine 01/30/21 documented as of this encounter
--- OUTSIDE RECORDS SUMMARY | 2021-12-18 16:00 | XMS_ITS | Encounter Summary ---
:1950 Author Organization [facility] Address [address] [place] [address] Care Team Providers Name Role Phone Elsewhere, Pcp Primary Care Provider Unavailable Encounter Details Date Type Department Care Team Description 08/15/2021 Orders Only Pharmacy Prior Auth Joanna Fulton [phone] Social History Tobacco Use Types Packs/Day Years [...] 06/27/2021 relatives? How often do you attend pentecostal or caodaism 1 to 4 times per year 06/27/2021 services? Do you belong to any clubs or organizations such No 06/27/2021 as pentecostal groups, unions, fraternal or athletic groups, or [...] to sleep or slept in a senior care (including now)? Education Answer Date Recorded What is the highest level of school Associate degree: academ [employer] program 06/27/2021 you have completed or the highest degree you have received? Sex Assigned at Date Recorded Male 06/27/2021 1:28 PM CDT documented as of this encounter Plan of Treatment Upcoming Encounters Date Type Specialty Care Team Description 12/23/2021 Appointment Radiation Oncology Low George M.D. [address] [place] [phone] (Wo rk) documented as of this encounter Visit Diagnoses Not on filedocumented in this encounter Care Teams Cancer Center Director Relationship Specialty Start Date End Date Elsewhere, Pcp PCP - General Family Medicine 01/30/21 documented as of this encounter
--- OUTSIDE RECORDS SUMMARY | 2021-12-18 16:00 | XMS_ITS | Encounter Summary ---
:1950 Author Organization [facility] Address [address] [place] [address] Care Team Providers Name Role Phone Elsewhere, Pcp Primary Care Provider Unavailable Encounter Details Date Type Department Care Team Description 08/15/2021 Hospital Encounter Department of Radiation [place] George, Oncology in [facility] [address] [facility] [address] [place] [phone] Social History Tobacco Use Types Packs/Day Years [...] 06/27/2021 relatives? How often do you attend religion or congregational 1 to 4 times per year 06/27/2021 services? Do you belong to any clubs or organizations such No 06/27/2021 as religion groups, unions, fraternal or athletic groups, or [...] the highest level of school Associate degree: [employer] program 06/27/2021 you have completed or the [...] Radiation Oncology Low George M.D. [address] [place], [place] [phone] (Wo rk) documented as of this encounter Visit Diagnoses Not on filedocumented in this encounter Care Teams Machine Maintenance Repairer Relationship Specialty Start Date End Date Elsewhere, Pcp PCP - General Family Medicine 01/30/21 documented as of this encounter
--- OUTSIDE RECORDS SUMMARY | 2021-12-18 16:00 | XMS_ITS | Encounter Summary ---
:1950 Author Organization [facility] Address [address] [place] [address] Care Team Providers Name Role Phone Elsewhere, Pcp Primary Care Provider Unavailable Encounter Details Date Type Department Care Team Description 08/13/2021 Hospital Encounter Department of Radiation [place] George, Oncology in [facility] [address] [facility] [address] [place] [phone] Social History Tobacco Use Types Packs/Day Years [...] 06/27/2021 relatives? How often do you attend yarsanism or faith 1 to 4 times per year 06/27/2021 services? Do you belong to any clubs or organizations such No 06/27/2021 as yarsanism groups, unions, fraternal or athletic groups, or [...] the highest level of school Associate degree: [employer] program 06/27/2021 you have completed or the [...] Radiation Oncology Low George M.D. [address] [place], [place] [phone] (Wo rk) documented as of this encounter Visit Diagnoses Not on filedocumented in this encounter Care Teams Dining Room Server Relationship Specialty Start Date End Date Elsewhere, Pcp PCP - General Family Medicine 01/30/21 documented as of this encounter
--- OUTSIDE RECORDS SUMMARY | 2021-12-18 16:00 | XMS_ITS | Encounter Summary ---
:1950 Author Organization [facility] Address [address] [place] [address] Care Team Providers Name Role Phone Elsewhere, Pcp Primary Care Provider Unavailable Encounter Details Date Type Department Care Team Description 08/05/2021 Hospital Encounter Department of Radiation La George, Oncology in [facility] [address] [facility] [address] [place] [phone] Social History Tobacco Use Types Packs/Day Years [...] How often do you attend adventism or moravian 1 to 4 times per [...] the highest level of school Associate degree: No [employer] program 06/27/2021 you have completed or the [...] Radiation Oncology Low George M.D. [address] [place], [place] [phone] (Wo rk) documented as of this encounter Visit Diagnoses Not on filedocumented in this encounter Care Teams Deck Officer Relationship Specialty Start Date End Date Elsewhere, Pcp PCP - General Family Medicine 01/30/21 documented as of this encounter
--- OUTSIDE RECORDS SUMMARY | 2021-12-18 16:00 | XMS_ITS | Encounter Summary ---
:1950 Author Organization [facility] Address [address] [place] [address] Care Team Providers Name Role Phone Elsewhere, Pcp Primary Care Provider Unavailable Encounter Details Date Type Department Care Team Description 08/14/2021 Orders Only Pharmacy Prior Auth Annetta Mosley [phone] Social History Tobacco Use Types Packs/Day Years [...] How often do you attend hinduism or sikhism 1 to 4 times per year 06/27/2021 [...] Appointment Radiation Oncology Low George M.D. [address] [place] [phone] (Wo rk) documented as of this encounter Visit Diagnoses Not on filedocumented in this encounter Care Teams Oyster Preparer Relationship Specialty Start Date End Date Elsewhere, Pcp PCP - General Family Medicine 01/30/21 documented as of this encounter
--- OUTSIDE RECORDS SUMMARY | 2021-12-18 16:00 | XMS_ITS | Encounter Summary ---
:1950 Author Organization [facility] Address [address] [place] [address] Care Team Providers Name Role Phone Elsewhere, Pcp Primary Care Provider Unavailable Reason for Referral Outpatient (Routine) - Authorized Specialty Diagnoses / Procedures Referred By Contact Refer red To Contact Radiation Oncology [place] George M .D. [facility] [address] [place] [address] Referral ID Status Reason Start Date Expiration Date Visits V isits Requested Authorized [id number] Authorized 07/25/2021 07/25/2022 10 10 Specialty Diagnoses / Procedures Referred By Contact Refer red To Contact Yenny Suarez P.A.-C ., M.S. [facility] Region [address] [place], [place] [address] Referral ID Status Reason Start Date Expiration Date Visits Requ ested Visits Authorized Radiation Therapy (Routine) - Authorized Specialty Diagnoses / Procedures Referred By Contact Refer red To Contact Diagnoses Primary Malignant Neoplasm Of Prostate (HCC) [place] George M.D. [facility] Region Procedures Management Visit [address] [place], [place] [phone] Referral ID Status Reason Start Date Expiration Date Visits V isits Requested Authorized [id number] Authorized 07/25/2021 07/25/2022 10 10 Radiation Therapy (Routine) - Authorized Specialty Diagnoses / Procedures Referred By Contact Refer red To Contact Diagnoses Primary Malignant Neoplasm Of Prostate (HCC) [place] George M.D. [facility] Procedures Prior Auth Rad Tx [address] [place], [place] [address] Referral ID Status Reason Start Date Expiration Date Visits V isits Requested Authorized [id number] Authorized 07/25/2021 07/25/2022 1 1 Encounter Details Date Type Department Care Team Description 07/25/2021 Orders Only Department of Radiation Yenny Suarez Pri mary Malignant Oncology in [place], PAlbaro, M.S. Neoplasm Of Prostate [place] [address] [facility] (HCC) (Primary Dx) [address] [place] [phone] Social History Tobacco Use Types Packs/Day Years [...] 06/27/2021 relatives? How often do you attend voodoo or yazidi 1 to 4 times per year 06/27/2021 services? Do you belong to any clubs or organizations such No 06/27/2021 as voodoo groups, unions, fraternal or athletic groups, or [...] highest level of school Associate degree: academ [employer] program 06/27/2021 you have completed or the highest degree you have received? Sex Assigned at Date Recorded Male 06/27/2021 1:28 PM CDT documented as of this encounter Plan of Treatment Upcoming Encounters Date Type Specialty Care Team Description 12/23/2021 Appointment Radiation Oncology [place] George M.D. [address] [place] [phone] (Wo rk) Scheduled Orders Name Type Priority Associated Order Schedule Diagnoses Prior Auth Rad Tx Radiation Oncology Routine Primary Malignant Ordered: 07/25/2021 Neoplasm Of Prostate (HCC) Management Visit Radiation Oncology Routine Primary Malignant 10 Occurrences Neoplasm Of starting 2021 Prostate (HCC) until 023 Scheduled Referrals Name Type Priority Associated Order Schedule Diagnoses Radiation Oncology Outpatient Referral Routine Primary Maligna nt Expected: 07/25/2021 - Nurse education Neoplasm Of (Approxima te), visit (clinic) Prostate (HCC) Expires: Radiation Oncology Outpatient Referral Routine 10 Occurrences nurse visit starting 2021 (clinic) until 3 documented as of this encounter Visit Diagnoses Diagnosis Primary Malignant Neoplasm Of Prostate ( HCC) - Primary documented in this encounter Care Teams Operator Relationship Specialty Start Date End Date Elsewhere, Pcp PCP - General Family Medicine 01/30/21 documented as of this encounter
--- OUTSIDE RECORDS SUMMARY | 2021-12-18 16:00 | XMS_ITS | Encounter Summary ---
:1950 Author Organization [facility] Address [address] [place] [address] Care Team Providers Name Role Phone Elsewhere, Pcp Primary Care Provider Unavailable Reason for Visit Reason Comments Med Refill Abiraterone and prednisone Encounter Details Date Type Department Care Team Description 08/16/2021 Clinical Department of Elly Cohen Med Refill Communication Oncology in [place] (Abiraterone and [facility], [address] [place] [address] prednisone) [place], [place] [address] [place] [phone] [place] [address] Social History Tobacco Use Types Packs/Day Years [...] How often do you attend rastafarian or jew 1 to 4 times per [...] the highest level of school Associate degree: [employer] program 06/27/2021 you have completed or the highest degree you have received? Sex Assigned at Date Recorded Male 06/27/2021 1:28 PM CDT documented as of this encounter Miscellaneous Notes Addendum Note - Stephanie Ewing, Shiraz., R.Ph. - 08/19/2021 10:31 AM CDT Addended by: STEPHANIE EWING on: 08/19/2021 10:31 AM Modules accepted: Orders Telephone Encounter - Stephanie Ewing Pharm.D., R.Ph. - 08/19/2021 10:22 AM CDT HISTORY OF PRESENT ILLNESS I called Mr Barton today regarding his abiraterone prescription. His copay was over $1000/month per [facility] with his insurance. He asked me to reroute his prescription to [facility] where he will use a GoodRx coupon to get the bernabe under $200/month. Mr Barton had a question regarding dose to take of spironolactone prescribed by his local primary care provider. ASSESSMENT I explained that spironolactone has been shown to stimulate prostate cancer when used with abiraterone. I asked him to contact his provider for an alternative medication to increase his serum potassium. PLAN Rerouted abiraterone and prednisone to [facility]. Referred Mr Barton to local provider to choose alternative to spironolactone Disposition/Recommendation: referral for services hypokalemia Education: patient/caller able to teach back Caller agreeable to plan of care: yes The following references were used: none Telephone Encounter - Lainey Santoro - 08/16/2021 4:51 PM CDT Images from the original note were not included. documented in this encounter Plan of Treatment Upcoming Encounters Date Type Specialty Care Team Description 12/23/2021 Appointment Radiation Oncology [place] George M.D. [address] [place] [phone] (Wo rk) documented as of this encounter Visit Diagnoses Diagnosis Primary Malignant Neoplasm Of Prostate ( HCC) - Primary documented in this encounter Care Teams Ui Programmer Relationship Specialty Start Date End Date Elsewhere, Pcp PCP - General Family Medicine 01/30/21 documented as of this encounter
--- OUTSIDE RECORDS SUMMARY | 2021-12-18 16:00 | XMS_ITS | Encounter Summary ---
:1950 Author Organization [facility] Address [address] [place] [address] Care Team Providers Name Role Phone Elsewhere, Pcp Primary Care Provider Unavailable Encounter Details Date Type Department Care Team Description 08/12/2021 Hospital Encounter Department of Radiation [place] George, Oncology in [facility] [address] [facility] [address] [place] [phone] Social History Tobacco Use Types Packs/Day Years [...] How often do you attend worship or pentecostalism 1 to 4 times per year 06/27/2021 [...] the highest level of school Associate degree: [employer] program 06/27/2021 you have completed or the [...] Radiation Oncology Low George M.D. [address] [place], [place] [phone] (Wo rk) documented as of this encounter Visit Diagnoses Not on filedocumented in this encounter Care Teams Marine Gear Keeper Relationship Specialty Start Date End Date Elsewhere, Pcp PCP - General Family Medicine 01/30/21 documented as of this encounter
--- OUTSIDE RECORDS SUMMARY | 2021-12-18 16:00 | XMS_ITS | Encounter Summary ---
:1950 Author Organization [facility] Address [address] [place] [address] Care Team Providers Name Role Phone Elsewhere, Pcp Primary Care Provider Unavailable Reason for Referral Outpatient (Routine) - Closed Specialty Diagnoses / Procedures Referred By Contact Refer red To Contact Radiation Oncology Diagnoses Primary Malignant Neoplasm Of Prostate (HCC) Rising Prostate Specific Antigen Following Treatment For Malignant Cancer Of Prostate Secondary Malignant Neoplasm Intrapelvic Lymph Node (HCC) Magnus Newman [place] [facility] M.D. [address] [place] [address] Referral ID Status Reason Start Date Expiration Date Visits Requ ested Visits Authorized [id number] Closed 07/22/2021 07/22/2022 1 1 Scheduling Instructions To be seen by Dr. George Outpatient (Routine) - Closed Specialty Diagnoses / Procedures Referred By Contact Refer red To Contact Radiation Oncology Diagnoses Primary Malignant Neoplasm Of Prostate (HCC) Funmi Montano [facility] CHANA, C.N.P. [address] [place] [address] Referral ID Status Reason Start Date Expiration Date Visits Requ ested Visits Authorized [id number] Closed 06/27/2021 06/27/2022 1 1 Reason for Visit Outpatient (Routine) - Closed Specialty Diagnoses / Procedures Referred By Contact Refer red To Contact Radiation Oncology Diagnoses Primary Malignant [facility]oplasm [facility]state [facility]HCC[facility] [address] [place] [phone] Referral ID Status Reason Start Date Expiration Date Visits Requ ested Visits Authorized [id number] Closed 06/27/2021 06/27/2022 1 1 Encounter Details Date Type Department Care Team Description 07/22/2021 Hospital Encounter Department of Magnus Newman y Malignant Neoplasm Intrapelvic Lymph Node (HCC) (Primary Dx); Radiation Oncology [place] Rising Prostate Specific Antigen Followi ng Treatment For Malignant Cancer Of Prostate; in [address] Primary Malignant Neoplasm Of Prostate ( HCC) [place], [place] [address] [place] [phone] [place], [place] [phone] (Work) [phone] Social History Tobacco Use Types Packs/Day Years [...] How often do you attend sikh or jain 1 to 4 times per year 06/27/2021 [...] highest level of school Associate degree: academ [employer] program 06/27/2021 you have completed or the [...] Weight 88 kg (194 lb 0.1 oz) 07/22/2021 9:24 AM CDT Height - - Body Mass Index 30.81 01/30/2021 11:48 AM SIDE GUIDER documented in this encounter Medications at Time [...] of beverage. documented as of this encounter Consult Notes Magnus Newman M.D. - 07/22/2021 10:19 AM CDT SUBJECTIVE Requesting Provider Funmi Montano APRN, C.N.P. CHIEF COMPLAINT/REASON FOR CONSULT 1. Persistently detectable PSA after radical prostatectomy 2. 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 Hewas referred to Radiation Oncology Service for the consideration of salvage radiotherapy. Oncologic history is as follows: 1. 05/16/2020: PSA was 5.35. He did not have obstructive urinary symptoms. 2. Patient met with Dr. Chan, and was noted to have an abnormal digital rectal exam with a nodule located the left apex. He proceeded with an MRI of the prostate. 3. August 17, 2020: MRI of the prostate demonstrated a 79 g size gland with a PSA density of 0.07. Patient was noted to have a 2.2 cm PI-RADS 5 lesion at the left posterior lateral mid apical peripheral zone. There was noted bulging and irregularity involving the capsule on the left as well as concerning findings for neurovascular bundle involvement on the left. There is no evidence of seminal vesicle involvement, pelvic lymphadenopathy or any bony pelvic lesions of concern. 4. August 30, 2020 patient had a prostate biopsy. The right prostate samples were benign. The left prostate samples demonstrated Adams 3 + 3 adenocarcinoma in 1/6 cores in less than 5% of the specimen. The targeted left apex samplings demonstrated Adams 3 + 4 adenocarcinoma in 2 of 4 cores in less than 5% of the specimen was involved. 5. January 30, 2021: Robot-assisted, laparoscopic, bilateral non-nerve sparing radical prostatectomyand bilateral pelvic lymphadenectomy. A total of 6 pelvic lymph nodes were negative for metastatic disease. Pathology showed adenocarcinoma with Valencia score 4+5, measuring 3.1 x 1.9 x 1.8 cm, in the left apex and posterior prostate. There was extraprostatic tumor extension. There was no tumor invasion into the seminal vesicles. All the surgical margins were clear. pT3a N0 R0. 6. June 27, 2021 and July 02, 2021: PSA was 1.9. 7. July 03, 2021: MRI prostate revealed mildly increased perfusion to the left side of the urethra, which was indeterminate for local tumor recurrence. There was no suspicious pelvic lymphadenopathy or bone metastasis in the visualized bones. He had choline PET-CT scan on July 02, 2021. This revealed mildly choline avid mid right external iliac and distal left external iliac lymph node, suspicious for lymph node metastasis. There was additional, more intense choline avid lymph node in the distal right external iliac region. There was no bone metastasis.. He did not have any perioperative complications. His voiding function is satisfactory. He has occasionally minimal stress urinary incontinence. He does not require any pad. He has good urinary flow. He has nocturia x 2. His bowel function is normal. He denies any bone pain. UROLOGIC PATIENT REPORTED DATA AUA Symptoms Score: IIEF-Erectile Function Domain Score: MEDICA/SURGICAL HISTORY Past Medical History: Diagnosis Date ??? Dysfunction Erectile ??? Hypertension NOS ??? Polyp Colon ??? Polyp Colon Adenomatous ??? Primary Malignant Neoplasm Of Prostate (HCC) Past Surgical History: Procedure Laterality Date ??? CHOLECYSTECTOMY 2017 ??? ROBOTIC-ASSISTED LYMPH NODE DISSECTION - PELVIC N/A 01/30/2021 Procedure: ROBOTIC-ASSISTED DISSECTION LYMPH NODE, PELVIC.; Surgeon: Lenny Gaspar M.D.; Location:[facility] OR ??? ROBOTIC-ASSISTED RADICAL PROSTATECTOMY N/A 01/30/2021 Procedure: ROBOTIC-ASSISTED RADICAL PROSTATECTOMY.; Surgeon: Lenny Gaspar M.D.; Location: [facility] RO OR ALLERGIES: No Known Allergies REVIEW OF OTHER MEDICAL HISTORY The following portions of the patient's history were reviewed and updated as appropriate: allergies,current medications, medical history, surgical history, problem list, labs, imaging, pathology, and oncology history. REVIEW OF SYSTEMS The following systems were reviewed: general, GI, , and others as appropriate, and they are negative. 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 FAMILY HISTORY Family History Problem Relation Age of Onset ??? Colon cancer Father ??? Prostate cancer Maternal Grandfather OBJECTIVE Wt 88 kg BMI 30.81 kg/m?? PHYSICAL EXAM General: Alert and oriented. No apparent distress. The rest of exam deferred. ASSESSMENT / PLAN 1. Persistently detectable PSA after radical prostatectomy 2. 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 I discussed with themhis clinical situation including the implication of persistently detectable PSA after surgery, and the radiologic findings. I recommended a combined approach of salvage radiotherapy (to the prostatic fossa and regional pelvic lymph nodes) plus long-term androgen deprivation therapy. In the setting of pelvic lymph node metastasis where definitive radiotherapy is offered, the optimal duration of androgen deprivation therapy r emains unknown. My inclination is to recommend a minimum of 3 years (or possibly indefinite period of time). His prognosis is guarded even after salvage radiotherapy, given that he had multiple adverseclinical and pathologic features (a high Adams score, persistently detectable PSA after surgery, arelatively high PSA level, and presence of multiple pelvic lymph the metastasis), suggesting a high risk of developing distant metastasis . In addition, an additional systemic treatment such as abiraterone is likely indicated, based on a recent STAMPEDE trial. He will need a referral to Medical Oncology Service to discuss additional systemic treatment. I explained alternative, nature, benefit, and potential side effects of salvage radiotherapy. I alsoexplained the rationale and potential side effects of adding long-term androgen deprivation therapy including the risk of osteoporosis. Following the above discussion, he would like to pursue salvage radiotherapy at [place]. Thus, I made a referral to Dr. George in [place]. I will leave the arrangement of androgen deprivation therapy and referral to Medical Oncology Service to Dr. George. Discussed the risks, benefits, alternatives, and the necessity of other members of the healthcare team participating in his medical care. All questions answered. I evaluated the patient for 50 minutes, and 50 minutes were devoted to counseling and educating on the prostate cancer status, prognosis, and management plan. EDUCATION Ready to learn, no apparent learning barriers were identified; learning preferences include listening. Explained diagnosis and treatment plan; patient expressed understanding of the content. Signed by: Magnus Newman M.D. 07/22/2021 documented in this encounter Plan of Treatment Upcoming Encounters Date Type Specialty Care Team Description 12/23/2021 Appointment Radiation Oncology [place] George M.D. [address] [place] [address] [place] [phone] (Wo rk) Scheduled Referrals Name Type Priority Associated Diagnoses Order S chedule Radiation Oncology Outpatient Referral Routine Primary Maligna nt Once for 1 - consult Neoplasm Of Prostate Occurre nces (clinic) ([facility]) starting 2021 until 2 Radiation Oncology Outpatient Referral Routine Primary Maligna nt Expected: - consult Neoplasm Of Prostate 022 (clinic) ([facility]) (Approximate), Rising Prostate Expires: Specific Antigen Following Treatment For Malignant Cancer Of Prostate Secondary Malignant Neoplasm Intrapelvic Lymph Node (HCC) documented as of this encounter Visit Diagnoses Diagnosis Secondary Malignant Neoplasm Intrapelvic Lymph Node (HCC) - Primary Rising Prostate Specific Antigen Followi ng Treatment For Malignant Cancer Of Prostate Primary Malignant Neoplasm Of Prostate ( HCC) documented in this encounter Care Teams Officer Lieutenant Relationship Specialty Start Date End Date Elsewhere, Pcp PCP - General Family Medicine 01/30/21 documented as of this encounter
--- OUTSIDE RECORDS SUMMARY | 2021-12-18 16:00 | XMS_ITS | Encounter Summary ---
:1950 Author Organization 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 George Reason for Visit Outpatient (Routine) - Closed Specialty Diagnoses / Procedures Referred By Contact Refer red To Contact Radiation Oncology Diagnoses Primary Malignant Neoplasm Of Prostate (HCC) Rising Prostate Specific Antigen Following Treatment For Malignant Cancer Of Prostate Secondary Malignant Neoplasm [facility]rapelvic Lymph Node [facility]CC[facility] [address] [place] [address] Referral ID Status Reason Start Date Expiration Date Visits Requ ested Visits Authorized [id number] Closed 07/22/2021 07/22/2022 1 1 Encounter Details Date Type Department Care Team Description 07/30/2021 Hospital Encounter Department of Leenstra, Hypogona dism Male (Primary Dx); Radiation Oncology London Costello M.D. Primary Malignant Neoplasm Of Prostate ( HCC); in [place], [facility] [address] [facility] Rising Prostate Specific Antigen Followi ng Treatment For Malignant Cancer Of Prostate; [place], [place] Secondary Malignant Neoplasm Intrapelvic Lymph Node (HCC) [address] [facility] [address] [place], [place] [phone] (Work) [phone] Social History Tobacco Use Types Packs/Day Years [...] 06/27/2021 relatives? How often do you attend moravian or mormonism 1 to 4 times per year 06/27/2021 services? Do you belong to any clubs or organizations such No 06/27/2021 as moravian groups, unions, fraternal or athletic groups, or [...] highest level of school Associate degree: academ [employer] program 06/27/2021 you have completed or the highest degree you have received? Sex Assigned at Date Recorded Male 06/27/2021 1:28 PM CDT documented as of this encounter Last Filed Vital Signs Vital Sign Reading Time Taken Comments Blood Pressure 142/72 07/30/2021 9:48 AM CDT Pulse 59 07/30/2021 9:48 AM CDT Temperature 36.7 ??C (98.1 ??F) 07/30/2021 9:48 AM CDT Respiratory Rate - - Oxygen Saturation - - Inhaled Oxygen Concentration - - Weight 88.6 kg (195 lb 5.2 oz) 07/30/2021 9:48 AM CDT Height - - Body Mass Index 31.02 01/30/2021 11:48 AM SELF RISING [employer] documented in this encounter Medications at Time of Discharge Medication Sig Dispensed Refills Start Date End Date amLODIPine (NORVASC) 10 Take 10 mg by mouth 0 mg tablet daily. aspirin [address] tablet Hold for one week 0 01/31 post-surgery cholecalciferol, vitamin Daily 0 D3, 25 mcg (1,000 Unit) tablet diclofenac sodium Twice A Day as 0 05/18/2020 (VOLTAREN) 50 mg EC needed tablet lisinopriL Take 40 mg by mouth 0 [...] 0 1 (Accu-Chek Guide test strips) strips lancets 2 times daily. 0 05/22/2020 polyethylene glycol Take 1 packet (17 g 0 021 08/12/2021 (MIRALAX) 17 gram powder total) by mouth packet daily as needed for constipation. Dissolve each 17 g dose in 240 mLs (8 ounces) of beverage. documented as of this encounter Consult Notes Nawaf Weiss M.D., M.S. - 07/30/2021 10:00 AM CDT RADIATION ONCOLOGY CONSULTATION Supervising Strategic Partnership Manager: Dr. London George Referring Provider: Magnus Newman M.D. Primary Care Provider: Dr. Gilberto Cho Home address: [address] [place] [phone] SUBJECTIVE History of present illness Mr. Cory Barton is a 70 y.o. male with stage IIIC (pT3a, pN0, cM0, pre- prostatectomy PSA 5.3, Grade Group 5) adenocarcinoma of the prostate s/p R0 prostatectomy who presents in consultation for consideration of radiation treatment in the setting of persistently positive PSA, most recently 1.9 with P ET choline scan demonstrating choline avid bilateral external iliac lymph nodes. The patient's oncologic history is as follows: Oncology History Primary Malignant Neoplasm Of Prostate (HCC) 07/08/2019 [...] B. Left prostate core biopsies: Prostate adenocarcinoma, Dwight grade 3 + 3 (grade group 1), less than 1 mm in greatest linear dimension involving 1 of 6 cores / core-like fragments and involving lessthan 5% of the submitted tissue. C. Left apex prostate core biopsies: Prostate adenocarcinoma, Dwight grade 3 + 4 (grade group 2), [...] carcinoma. B. Prostate gland, radical prostatectomy: Adenocarcinoma (Dwight pattern 4+5, grade group 5) is identified [...] Not applicable Percentage of Pattern 4 in Dwight score 7: Not applicable Intraductal Carcinoma (IDC): [...] patient would like to pursue radiotherapy in [place]. A referral was placed. He left the arrangementof ADT and referral to Medical Oncology to Dr. George. 08/05/2021 - Radiation Therapy Radiation Therapy Treatment Details (Noted on 07/25/2021) Site: Prostate - Bed Technique: No technique specified Goal: Curative Planned Treatment Start Date: 08/05/2021 In the clinic today, Mr. Cory Barton reports that he is recovered well from his surgery. He has minimal stress urinary incontinence without a pad that is elicited by lifting or straining. He endorses nocturia x2 and good urinary flow. He has normal bowel function and denies any bone pain. He has longstanding erectile dysfunction that well pre-dated his surgery. He is retired and fairly active working around his property. He presents with his today. Patient reported symptom screen Fatigue (scale: 0 = no fatigue; 10 = worst fatigue you can imagine): 6 Pain (scale: 0 = no pain; 10 = worst pain you can imagine): 7 Overall quality of life (scale: 0 = as bad as can be; 10 = as good as can be): 9 AUA-SS: 4 IIEF-5: 5 Past medical history Pertinent past medical history, past surgical history, medications, allergies, social history, and family history were reviewed. Pertinent past medical history includes HTN, pre-diabetes. The patient does not have a history of lupus, scleroderma or ulcerative colitis. The patient has no implanted medical devices. Social history is significant for former smoker, quit in 1978. Prior history of radiation None. Review of systems Review of systems as noted in HPI. OBJECTIVE Vitals Weight: 88.6 kg, Temperature: 98.1 degrees Farenheit, Pulse: 59 beats per minute and Blood pressure:142/72 mmHg Physical exam ECO Constitutional: Pleasant, in no acute distress, overweight, ambulates without an assistive device. Respiratory: CTAB, no r/r/w, normal work of breathing on room air Cardiovascular: RRR, no m/r/g ASSESSMENT AND PLAN #1 Stage IIIC (pT3a, pN0, cM0, PSA: 5.3, Grade Group: 5) adenocarcinoma the prostate, status post margin negative prostatectomy on February 10, 2021 with persistently positive PSA of 1.9 ng/mL most recently on July 04, 2021 #2 Choline PET/CT scan with choline avid right mid and distal external iliac lymph nodes and distal left external iliac lymph nodes Mr. Cory Barton is a 70 y.o. male with stage IIIC (pT3a, pN0, cM0, pre- prostatectomy PSA 5.3, Grade Group 5) adenocarcinoma of the prostate s/p R0 prostatectomy who presents in consultation for consideration of radiation treatment in the setting of persistently positive PSA, most recently 1.9 with P ET choline scan demonstrating choline avid bilateral external iliac lymph nodes. I have reviewed the pertinent history, laboratory, and imaging studies. We reviewed recommendations for salvage radiotherapy with the addition of androgen deprivation therapy. The patient previously has been evaluated by Dr. Newman in [place]. We discussed recommendations to treat the prostate fossa, choline avid lymph nodes, and remaining pelvic lymph nodes in an integrated and sequential fashion: 6400 cGy in 32 fractions to the prostate fossa and 4500 cGy in 25 fractions to the pelvic lymph nodes with an integrated or sequential boost to the choline avid lymph nodes. Given his node positive and Grade Group 5 disease, we favor use of concurrent and adjuvant ADT for a duration of at least 12-18 months, although ideally 2-3 years. We will contact medical oncology for consideration of abiraterone. I discussed the logistics as well as the acute and chronic side effects associated with treatment indetail including acute side effects of urinary frequency and urgency, dysuria, bowel frequency and urgency, diarrhea, gaseous bloating and discomfort, radiation dermatitis, loss of pubic hair, and fatigue. ??Long-term side effects include common mild increase in urinary and bowel frequency, as well asmore rare side effects including radiation cystitis (5% risk or less), radiation proctitis (5% or less risk), urethral stenoses requiring dilatation (1% risk or less), fistula formation (less than 1% risk), increasing arthritis of the hips, small bowel obstruction, and a very small risk of secondary malignancy. The patient is also likely to experience worsening of his erectile dysfunction. ?? I also discussed the side effects of androgen deprivation therapy, which include hot flashes, fatigue, bone loss with prolonged use, mood changes, gynecomastia, loss of muscle strength and power, and complete loss of erectile function until his testosterone levels normalize (which can take up to a year after ADT is discontinued),??a low risk of cardiovascular events (5% or less), and a low increased risk of Alzheimer or other dementia (4-6%).??The patient displayed understanding of the risks and benefits. We will plan for CT simulation today, 07/30/2021, and initiation of treatment on approximately 08/05/2021. All questions were answered to the patient's satisfaction. Our departmental contact information was provided to the patient who was encouraged to contact the Department of Radiation Oncology with further questions or concerns. Dr. London George is the building consultant; please see attestation for further details. Nawaf Weiss M.D., M.S. Associated attestation - London George M.D. - 07/30/2021 11:55 AM CDT I saw and evaluated the patient and participated in the [place] portions of the service. I reviewed the documentation of Nawaf Weiss M.D. and agree with his findings and plan. In brief, Mr. Cory Barton is a 70 y.o. male from [place], [place] with a persistently positive PSA following prostatectomy. I am asked by Dr. Newman to evaluate the patient for radiotherapy. His oncologic history is well detailed in Dr. Weiss' note. In brief, PSA of 5.35 ng/mL on May 16, 2020 prompted a visit with Dr. Oswald who palpated a nodule in the left apex on digital rectal exam. Prostate biopsy on August 30, 2020 confirmed Valencia 3+3 in the left prostate and Dwight 3+4 in the left apex.He underwent a robotic assisted prostatectomy and pelvic lymph node dissection under the care of on January 30, 2021. Pathology confirmed Valencia 4 + 5 disease forming a 3.1 cm mass in the left apex and posterior prostate with extra prostatic extension on the posterior left side but ultimately with negative margins. Six bilateral pelvic lymph nodes were negative. PSA on June 27, 2021 was persistently positive at 1.9 ng/mL and again 1.9 ng/mL on July 04, 2021. A choline PET/CT scan on July 02, 2021 revealed choline avid lymph nodes in the mid and distal right external iliac chain and the distal left external iliac chain concerning for metastasis. An MRI of the prostate on the same day showed mild increased perfusion to the left of the urethra without clear lesion. He saw Dr. Newman in consultation on July 22, 2021 and salvage radiotherapy with long course ADT with the possible addition of abiraterone was recommended. The patient is currently doing well. He has occasional stress urinary incontinence but otherwise normal urination. He is not doing Kegel exercises faithfully. He has bowel movements typically each morning though he can go for 2 or 3 days without a bowel movement. He did have a bowel movement today. His ECOG performance status is 0. OBJECTIVE PHYSICAL EXAM General: Patient is awake, alert, and oriented to person, place, and time. No apparent distress. He is here with his Anahy. Remainder per Dr. Weiss. DIAGNOSTICS I reviewed the patient's imaging and pathology reports. ASSESSMENT / PLAN #1 Stage IIIC (pT3a, [...] July 30, 2021,a leuprolide 22.5 mg injection next week, and a visit with Medical Oncology for the consideration ofabiraterone in the near future #4 Stress urinary incontinence following prostatectomy, scant in amount #5 Erectile dysfunction preceding prostatectomy I had a detailed discussion with the patient and his regarding the risks, benefits, and alternatives of radiotherapy in this setting. I agree with Dr. Newman's recommendation of salvage radiotherapywith a long course of androgen deprivation therapy. Because of his choline avid lymph nodes, I wouldaim for 18- 36 months of androgen deprivation therapy. I discussed the logistics as well as the acute and chronic side effects associated with treatment indetail. I also discussed the side effects of androgen deprivation therapy. For a complete listing ofthese, please see Dr. Weiss' note. We will obtain a baseline testosterone level today and then he will begin bicalutamide 50 mg daily for 3 weeks either later today or tomorrow. He will have a leuprolide 22.5 mg injection at [facility] next week. We will refer the patient to Medical Oncology for consideration of abiraterone. He will begin calcium and vitamin-D supplementation. We will obtain a baseline bone density scan. After this discussion, I provided the patient with a written summary of my recommendations. His questions were answered to their verbalized satisfaction. The patient verbally stated that he would like to proceed with treatment. He will undergo CT simulation today. We will endeavor to begin treatment on Thursday, August 05, 2021. My thanks to Drs. Newman, Hubert, and Marquis for the opportunity to participate in this patient's care. EDUCATION Ready to learn, no apparent learning barriers were identified; learning preferences include listening. Explained diagnosis and treatment plan; patient expressed understanding of the content. CONSENT Discussed the risks, benefits, alternatives, and the necessity of other members of the healthcare team participating in the procedure. All questions answered and consent given. I have spent 40 minutes with this patient today with 40 minutes spent in counseling the patient. Signed by: London George M.D. 07/30/21 11:55 AM CDT [facility] [address] [place] [address] documented in this encounter Miscellaneous Notes Addendum Note - Emma Rodriguez C.N.AAlvarez - 07/30/2021 10:00 AM CDT Encounter addended by: Emma Rodriguez C.NGraeme on: 07/30/2021 12:25 PM Actions taken: Letter saved documented in this encounter Plan of Treatment Upcoming Encounters Date Type Specialty Care Team Description 12/23/2021 Appointment Radiation Oncology Low George M.D. 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) Scheduled Referrals Name Type Priority Associated Diagnoses Order S chedule Radiation Oncology Outpatient Referral Routine Primary Maligna nt Once for 1 - consult Neoplasm Of Prostate Occurre nces (clinic) ([facility]) starting 07/30/2021 Rising Prostate until 2021 Specific Antigen Following Treatment For 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 07/30/2021 12:19 PM Initial Rad Onc Treatment Planning CT Si mulation Date/Time: 07/30/2021 12:18 PM Performed by: London George M.D. Authorized by: Lodnon George M.D. London George M.D. RADIATION ONCOLOGY ORDERABLE S Performing Organization Address City/State/ZIP Code Phon e Number [place] na documented in this encounter Visit Diagnoses Diagnosis Hypogonadism Male - Primary Primary Malignant Neoplasm Of Prostate ( HCC) Rising Prostate Specific Antigen Followi ng Treatment For Malignant Cancer Of Prostate Secondary Malignant Neoplasm Intrapelvic Lymph Node (HCC) Rising Prostate Specific Antigen Followi ng Treatment For Malignant Cancer Of Prostate Secondary Malignant Neoplasm Intrapelvic Lymph Node (HCC) documented in this encounter Care Teams Risk Control Officer Relationship Specialty Start Date End Date Elsewhere, Pcp PCP - General Family Medicine 01/30/21 documented as of this encounter
--- OUTSIDE RECORDS SUMMARY | 2021-12-18 16:01 | XMS_ITS | Encounter Summary ---
:1950 Author Organization [facility] Address [address] [place] [address] Care Team Providers Name Role Phone Elsewhere, Pcp Primary Care Provider Unavailable Reason for Referral MRI/CAT/PET Scan (Routine) - Closed Specialty Diagnoses / Procedures Referred By Contact Refer red To Contact Radiology Diagnoses Primary Malignant [facility] Pro[facility] ([facility] Prostate without and with IV Contrast C.N.P. [address] [place] [phone] Referral ID Status Reason Start Date Expiration Date Visits Requ ested Visits Authorized [id number] Closed 06/27/2021 06/27/2022 1 1 Reason for Visit MRI/CAT/PET Scan (Routine) - Closed Specialty Diagnoses / Procedures Referred By Contact Refer red To Contact Radiology Diagnoses Primary Malignant [facility]oplasm [facility] Prostate (HCC) [facility] Procedures MR Prostate without and with IV Contrast C.N.P. [address] [place], [place] [phone] Referral ID Status Reason Start Date Expiration Date Visits Requ ested Visits Authorized [id number] Closed 06/27/2021 06/27/2022 1 1 Encounter Details Date Type Department Care Team Description 07/02/2021 Hospital Encounter Department of Funmi Montano Malignant Radiology, Jazmín Santos APRN, C.N.P. Neoplasm Of Prostate Building, in 200 [facility] ([facility]) [place], [place] 200 [facility] [address] [place], [place] [phone] (Work) [phone] Social History Tobacco Use Types Packs/Day Years [...] 06/27/2021 relatives? How often do you attend restorationist or orthodoxy 1 to 4 times per year 06/27/2021 services? Do you belong to any clubs or organizations such No 06/27/2021 as restorationist groups, unions, fraternal or athletic groups, or [...] place to sleep or slept in a correction (including now)? Education Answer Date Recorded What is the highest level of school Associate degree: academ [employer] program 06/27/2021 you have completed or the highest degree you have received? Sex Assigned at Date Recorded Male 06/27/2021 1:28 PM CDT documented as of this encounter Medications at Time of Discharge Medication Sig Dispensed Refills Start Date End Date acetaminophen (TYLENOL) Take 2 tablets 0 12/02/20 21 500 mg tablet (1,000 mg total) [...] of beverage. documented as of this encounter Nursing Notes Praveen Land R.N. - 07/02/2021 6:45 PM CDT Glucagon Administration Screening: Does patient have an allergy to glucagon or lactose (e.g. hives, difficulty breathing, anaphylaxis, necrolytic migratory erythema)? Note: nausea vomiting, bloating, and diarrhea are common and expected adverse effects of glucagon and/or lactose intolerance. NO If no???continue. Does patient have a history of insulinoma or phenochromocytoma? NO If no???continue. If yes, discusswith Radiologist. Does patient have diabetes? NO If no.. continue.. If yes??? initiate nurse initiated protocol to order POC blood glucose . If yes and insulin dependent, provide patient with Glucagon Injections if you Have Diabetes card. What is patient's glucose? Not diabetic - less than 70 treat f using Hypoglycemia Nurse Initiated Protocol - between 70 and 300 administer medication as ordered. - greater than 300 notify radiologist and do not administer medication. Is patient safe to receive Glucagon YES If yes.. Administer Glucagon as outlined in order. Does the patient need to remain NPO following scan for additional appointments today? NO documented in this encounter Plan of Treatment Upcoming Encounters Date Type Specialty Care Team Description 12/23/2021 Appointment Radiation Oncology Low George M.D. [address] [place], [place] [phone] (Wo rk) documented as of this encounter Procedures Procedure Name Priority Date/Time Associated Comments Diagnosis MR PROSTATE RAD - Routine 07/02/2021 6:54 Primary Malignant Result s for this WITHOUT AND WITH (most inpatients PM CDT Neoplasm Of procedu re are in IV CONTRAST and all Prostate (HCC) the results outpatients) section. documented in this encounter Results MR Prostate without and with IV Contrast (07/02/2021 6:54 PM CDT) Anatomical Region Laterality Modality Pelvis, Abdominal RST LOS, Abdominal ARZ LOS, Abdominal N/A Magnetic Resonance FLA LOS Specimen (Source) Anatomical Collection Method Collection Time Re ceived Time Location / / Volume Laterality 07/03/2021 5:25 PM CDT Impressions 07/03/2021 5:43 PM CDT 1. ??Indeterminate/equivocal for local recurrence. 2. ??Negative for lymph node metastasis. (Suspicious nodes on PET/CT) 3. ??Negative for bone metastasis. Narrative 07/03/2021 5:43 PM CDT MR PROSTATE WITHOUT AND WITH IV CONTRAST COMPARISON: Same day PET choline CLINICAL HISTORY: Recurrent suspected. P SA 1.9 ng/mL. PROSTATE BED: Postoperative changes of p rostatectomy. Mild increased perfusion to the left of the urethra, (series [id number], image 26) withou t a discrete lesion identified for segmentation. Appearance is nonspecific. LYMPH NODES: Negative for metastatic lym ph node(s). No significant adenopathy on MRI. However subcentimeter nodes seen on PET CT seen within pelvis. BONES: Negative for metastatic bone lesi on(s). OTHER FINDINGS: Colonic diverticulosis PROSTATE MRI TECHNIQUE: Multiparametric MRI of the prostate was performed at [address] [place] with surface coil. High resolution T2WI, DWI/ADC, and DCE imaging with IV contrast performed. Likert grading of level of radiologic mcguire spicion: ?1- ??Negative ?2- ??Low suspicion ?3- ??Indeterminate/equivocal ?4- ??Suspicious ?5- ??Highly suspicious Procedure Note Yonas Alexander M.B.B.S., M.D. - 2 MR PROSTATE WITHOUT AND WITH IV CONTRAST COMPARISON: Same day PET choline CLINICAL HISTORY: Recurrent suspected. P SA 1.9 ng/mL. PROSTATE BED: Postoperative changes of p rostatectomy. Mild increased perfusion to the left of the urethra, (series [id number], image 26) withou t a discrete lesion identified for segmentation. Appearance is nonspecific. LYMPH NODES: Negative for metastatic lym ph node(s). No significant adenopathy on MRI. However subcentimeter nodes seen on PET CT seen within pelvis. BONES: Negative for metastatic bone lesi on(s). OTHER FINDINGS: Colonic diverticulosis PROSTATE MRI TECHNIQUE: Multiparametric MRI of the prostate was performed at [address] with surface coil. High resolution T2WI, DWI/ADC, and DCE imaging with IV contrast performed. Likert grading of level of radiologic mcguire spicion: 1- Negative 2- Low suspicion 3- Indeterminate/equivocal 4- Suspicious 5- Highly suspicious IMPRESSION: 1. Indeterminate/equivocal for local rec urrence. 2. Negative for lymph node metastasis. ( Suspicious nodes on PET/CT) 3. Negative for bone metastasis. Funmi Montano APRN, C.N.P. IMG MRI PROCEDURES documented in this encounter Visit Diagnoses Diagnosis Primary Malignant Neoplasm Of Prostate ( HCC) documented in this encounter Administered Medications Inactive Administered Medications - up to 3 most recent administrations Medication Order MAR Action Action Date Dose Rate Site gadoterate meglumine 0.5 mmol/mL Given 07/02/2021 6:40 PM CDT 18 mL (376.9 mg/mL) injection 1.6-20 mL (DOTAREM) 1.6-20 mL, intravenous, Once in imaging, contrast, Starting on Tu07/02/21 at 1803, For 1 dose, Imaging Protocol Orders, Dose per Radiant Medication Guidelines glucagon injection 0.5-1 mg Given 07/02/2021 6:38 PM CDT 1 mg Left Upper Arm (GlucaGen) (Back) 0.5-1 mg, subcutaneous, Once, On Thu07/02/21 at 1815, For 1 dose, Imaging Protocol Orders sodium chloride (PF) 0.9 % injection 1-1 00 mL Given 07/02/2021 6:40 PM CDT 20 mL 1-100 mL, intravenous, Once, On Thu07/02/21 at 1815, For 1 dose, Imaging Protocol Orders documented in this encounter Care Teams Planning Management It Specialist Relationship Specialty Start Date End Date Elsewhere, Pcp PCP - General Family Medicine 01/30/21 documented as of this encounter
--- OUTSIDE RECORDS SUMMARY | 2021-12-18 16:01 | XMS_ITS | Encounter Summary ---
:1950 Author Organization [facility] Address [address] [place] [id number] Care Team Providers Name Role Phone Elsewhere, Pcp Primary Care Provider Unavailable Encounter Details Date Type Department Care Team Description 01/30/2021 Anesthesia Event [facility] OR Felipe Jade M.D. [address] [place] [phone] [address] [facility] [address] [place] [phone] [place] [phone] Anesthesia Record Procedure Summary Procedure Name Responsible Anesthesia Start Anesthesia Stop Time Anesthesiologist Time ROBOTIC-ASSISTED Felipe Jade M.D. 01/30/21 1318 01/30/21 1937 RADICAL PROSTATECTOMY. Events Date Time Event Comment 01/30/2021 1318 An Start Machine/Equipmen t Checked Infection Precautions Foll owed Procedure/Site Verified NPO Sta tus Verified Supine Standard ASA Mon itors Applied 1323 An Induction 1329 An Intubation 1331 Turnover to Proceduralist 1405 Proc Start 1910 Proc Fin 1918 Turnover to ANE Staff 1920 Airway Removal Criteria Met 1920 Extubation/Airway Removed 1923 an stop data 1936 An End I completed my h andoff to the receiving staff during [facility] we 1. Identified the patient 2. Ident ified the responsible provider 3. Revi ewed the pertinent medical history 4. Discussed the surgical course 5. Review ed intra-op anesthesia management and i ssues during anesthesia 6. Set expectati ons for post-procedure period 7. Allowe d opportunity for questions and ac knowledgement of understanding. Name Total fentanyl injection 50 mcg/mL 50 mcg lidocaine 2% (mg) injection 100 mg propofol 10 mg/mL 250 mg rocuronium 10 mg/mL injection 130 mg ePHEDrine PF 5 mg/mL syringe injection 25 mg sugammadex 100 mg/mL injection 200 mg glycopyrrolate 0.2 mg/mL injection 0.4 mg ceFAZolin injection 2 g (ANCEF) 4 g heparin (porcine) injection 5,000 Units 5,000 Units dexamethasone 4 mg/mL injection 8 mg HYDROmorphone PF 2 mg/mL injection 1 mg Lactated Ringers Free Drip 1,200 mL lactated ringers free drip 1,000 mL Agents No agents on file. Blood No blood administrations on file. Lines, Drains, and Airways Type Details Placement Removal Scope Sites 01/30/21; Abdomen; 1; 01/30/21 0000 by 02/11/21 1107 by Medial; 2; Left; 3; Left; Migdalia Fox, Concha Rodriguez, 4; Right; 5; Right; 6; R.N. R.N. Right; primapores; 02/11/21; 1107 Indwelling Urinary Placement Date: 01/30/21; 01/30/21 0000 by 1106 by Catheter Inserted by: Lashaun Diop; Kasey Spring, Concha Garcia, Type: Non-latex; Size: 20 R.N. R.N. Fr.; Balloon Size: 30 mL (20cc sterile water in balloon); Urine Returned: Yes; Removal Date: 02/11/21; Removal Time: 1106; Removal Reason: Per order Peripheral IV Placement Date: 01/30/21; 01/30/21 1136 by 01/31 1300 by Placement Time: 1136; Daina Mart Myra E, Catheter Size: 20 G; R.N., C.M.S .R.N. Orientation: Left; Location: Hand; Site Prep: Chlorhexidine (Preferred); Technique: Anatomical landmarks; Inserted by: kimi; Insertion Attempts: 1; Removal Date: 01/31/21; Removal Time: 1300; Removal Reason: Patient discharged Peripheral IV Placement Date: 01/30/21; 01/30/21 1327 by 01/31 1300 by Placement Time: 1327; Liz Ramirez R.N. Rowe, Myra E, Catheter Size: 18 G; Scottie GuerinS .R.N. Orientation: Right; Location: Hand; Removal Date: 01/31/21; Removal Time: 1300; Removal Reason: Patient discharged ETT Placement Date: 01/30/21; 01/30/21 1329 by 01/30 192 by Placement Time: 132 Liz Ramirez R.N. Mogren, Amy E, (created via procedure WALLPAPER EMBOSSER HELPER, CRN A documentation); Mask Ventilation: Oral/Nasal airway needed; Type: Standard ETT; Single Lumen Tube Size: 7.5 mm; Cuffed: Yes; Blade Size: MAC 3; Location: Oral; Grade View: Grade 2A; Insertion Attempts: 2; Placement Verification: Bilateral breath sounds, Positive ETCO2, Symmetrical chest wall movement; Removal Date: 01/30/21; Removal Time: 1920 Indwelling Urinary Placement Date: 01/30/21; 01/30/21 1400 by 1840 by Catheter Placement Time: 1400; Migdalia Fox Rooney, Kaelyn M, Inserted by: Giovani Roberts R.N. R.N. CSA; Type: Non-latex; Size: 18 Fr.; Balloon Size: 30 mL (15 mL sterile water in balloon); Urine Returned: Yes; Removal Date: 01/30/21; Removal Time: 1839; Removal Reason: Per protocol documented in this encounter Social History Tobacco Use Types Packs/Day Years [...] How often do you attend religion or sikh 1 to 4 times per year 06/27/2021 [...] the highest level of school Associate degree: nilsa alas, 09/06/2020 you have completed or the highest technical, or vocational p neha degree you have received? Sex Assigned at Date Recorded Male 06/27/2021 1:28 PM CDT documented as of this encounter OR Notes Anesthesia Postprocedure Evaluation - Gurinder Arshad M.D. - 01/30/2021 8:58 PM CST Patient: Cory Barton Procedure Summary Date: 01/30/21 Room / Location: [place] [address] / [facility] in [place], [place] Anesthesia Start: 8 Anesthesia Stop: 1936 Procedures: ROBOTIC-ASSISTED RADICAL PROSTATECTOMY. (N/A ) ROBOTIC-ASSISTED DISSECTION LYMPH NODE, PELVIC. (N/A ) Diagnosis: Primary Malignant Neoplasm Of Prostate (HCC) (Primary Malignant Neoplasm Of Prostate (HCC) [C61].) Providers: Lenny Gaspar M.D. Responsible Provider: Felipe Jade M.D. Anesthesia Type: general ASA Status: 3 Anesthesia Type: general Last vitals Vitals Value Taken Time BP 130/71 01/30/212044 Temp 36.5 ??C 01/30/212052 Pulse 86 01/30/212057 Resp 19 01/30/212057 SpO2 97 % 01/30/212057 Vitals shown include unvalidated device data. Please reference Vitals flowsheet for most recent vital signs. Anesthesia Post Evaluation Patient Disposition: general care unit Cardiovascular status: hemodynamics (HR & BP) acceptable Respiratory status: patent airway with spontaneous effort Temperature: normothermic Oxygen requirements: nasal cannula Level of consciousness: awake Pain score: pain adequately controlled and/or at baseline Post Op nausea/vomiting: none Hydration status: euvolemic IC EVENTS FACILITIES RENTAL MANAGER Anesthesia Procedure Notes - Liz Ramirez R.N. - 01/30/2021 1:38 PM PUBLIC EVENTS FACILITIES RENTAL MANAGER Associated Order(s): Airway Airway Date/Time: 01/30/2021 1:29 PM Performed by: Liz Ramirez R.N. Authorized by: Felipe Walker M.D. Patient location during procedure: OR / Procedure Area PROCEDURE DETAILS: Mask difficulty assessment: oral/nasal airway needed Final airway type: direct laryngoscopy, intubation Laryngeal Manipulation: no Final airway difficulty of direct laryngoscopy (DL): 1-some difficulty Final best view of glottic structures - Cormack/Lehane Score: grade 2A ETT location: oral Adult blade type: MAC 3 Adult tube size: 7.5 Adult ETT distance at teeth/gum: 23 Oral tube type: standard ETT Cuffed: yes Number of attempt to successful placement: 2 Airway confirmation: bilateral breath sounds, positive ETCO2 and bilateral chest rise Other previous techniques attempted: none PRE PROCEDURE DETAILS: Pre evaluation for airway management: procedure Urgency: elective Preop assessment of probable difficulty: no difficulty anticipated Preoxygenation: bag valve mask SEDATION / ANESTHESIA Anesthesia method: anesthesia POST PROCEDURE DETAILS: Procedure outcome: successful Airway event: no complications ATTESTATION STATEMENT IC EVENTS FACILITIES RENTAL MANAGER Anesthesia Preprocedure Evaluation - Felipe Walker M.D. - 01/30/2021 12:36 PM CST Preprocedure Anesthesia & H&P Assessment Procedure Summary Date/Time: 01/30/21 1302 Procedures: ROBOTIC-ASSISTED RADICAL PROSTATECTOMY. (N/A ) ROBOTIC-ASSISTED DISSECTION LYMPH NODE, PELVIC. (N/A ) Diagnosis: Primary Malignant Neoplasm Of Prostate (HCC) [C61] Pre-op diagnosis: Primary Malignant Neoplasm Of Prostate (HCC) [C61]. Location: [address] [facility] / [facility] in [place], [place] Providers: Lenny Gaspar M.D. Pertinent components of the patient's history including current problem list, medical history, surgical history, family history, social history, medications and allergies were reviewed. Present illnessand pre-op diagnosis were confirmed. The planned surgery / procedure was verified with the patient /legal guardian. The patient's general health condition remains unchanged (See Linked H&P) RELEVANT COMORBID CONDITIONS CV (+) Hypertension Essential Primary ONC (+) Primary Malignant Neoplasm Of Prostate (HCC) OBJECTIVE PHYSICAL EXAMINATION Airway (HEENT) Mallampati: II Neck ROM: Full Mouth Opening: >3 cm Cardiovascular Rhythm: Regular Rate: Normal Cardiovascular Assessment: cardiovascular normal Pulmonary Pulmonary Assessment: Clear and non labored General / Constitutional Constitutional Assessment: Normal General State of Health:: healthy appearing and calm ASSESSMENT / PLAN ANESTHESIA PLAN ASA: 3 Anesthesia Plan: general Patient seen and allergies reviewed, anesthesia plan and risks discussed directly with patient /legal guardian or through an cement car dumper. Risks/Benefits/Alternatives of Blood transfusion discussed with patient / legal guardian, including an opportunity to ask questions and/or decline some or all transfusion therapies. The patient / legalguardian consented to the use of all blood products, as deemed medically necessary Approval to Proceed: approved for anesthesia IC EVENTS FACILITIES RENTAL MANAGER documented in this encounter Plan of Treatment Upcoming Encounters Date Type Specialty Care Team Description 12/23/2021 Appointment Radiation Oncology Low George M.D. [address] [place], [place] [phone] (Wo rk) documented as of this encounter Procedures Procedure Name Priority Date/Time Associated Comments Diagnosis LDA ANE ENDOTRACHEAL Routine 01/30/2021 1:29 PM R esults for this AIRWAY PUBLIC EVENTS FACILITIES RENTAL MANAGER procedure are i n the results section. documented in this encounter Results LDA ANE ENDOTRACHEAL AIRWAY (01/30/2021 1:29 PM PUBLIC EVENTS FACILITIES RENTAL MANAGER) Narrative Liz Ramirez R.N. - 01/30/2021 1:29 P M PUBLIC EVENTS FACILITIES RENTAL MANAGER Liz Ramirez R.N. ? 01/30/2021 ??1:39 PM Airway Date/Time: 01/30/2021 1:29 PM Performed by: Liz Ramirez R.N. Authorized by: Felipe Walker M.D. Patient location during procedure: OR / Procedure Area PROCEDURE DETAILS: Mask difficulty assessment: oral/nasal a irway needed Final airway type: direct laryngoscopy, intubation Laryngeal Manipulation: no ?? Final airway difficulty of direct laryng oscopy (DL): 1-some difficulty Final best view of glottic structures - Cormack/Lehane Score: grade 2A ETT location: oral Adult blade type: MAC 3 Adult tube size: 7.5 Adult ETT distance at teeth/gum: 23 Oral tube type: standard ETT Cuffed: yes Number of attempt to successful placemen t: 2 Airway confirmation: bilateral breath so unds, positive ETCO2 and bilateral chest rise Other previous techniques attempted: non e PRE PROCEDURE DETAILS: Pre evaluation for airway management: pr ocedure Urgency: elective Preop assessment of probable difficulty: no difficulty anticipated Preoxygenation: bag valve mask SEDATION / ANESTHESIA Anesthesia method: anesthesia POST PROCEDURE DETAILS: ? Procedure outcome: successful ?? Airway event: no complications ATTESTATION STATEMENT Felipe Walker M.D. ANESTHESIA ORDERABLES documented in this encounter Visit Diagnoses Not on filedocumented in this encounter Administered Medications Inactive Administered Medications - up to 3 most recent administrations Medication Order MAR Action Action Date Dose Rate Site ceFAZolin injection 2 g (ANCEF) Given 01/30/2021 4:53 PM PUBLIC EVENTS FACILITIES RENTAL MANAGER 2 g 2 g, intravenous, at 20 mL/hr, Administer over 30 Minutes, Once, On Thu01/30/21 at 1300, For 1 dose, Intra-Op, If needed, reconstitute vial per package insert instructions. See IVAG for administration guidelines. , Drug Monitoring Program: Pharmacist to adjust medication dosing based on indication and drug clearance factors., Indications: Prophylaxis, surgical Given 01/30/2021 2:03 PM PUBLIC EVENTS FACILITIES RENTAL MANAGER 2 g dexAMETHasone injection (DECADRON) Given 01/30/2021 1:23 PM PUBLIC EVENTS FACILITIES RENTAL MANAGER 8 mg intravenous, As needed, Starting on Thu01/30/21 at 1323, Anesthesia Intra-op ePHEDrine (PF) injection Given 01/30/2021 4:14 PM PUBLIC EVENTS FACILITIES RENTAL MANAGER 5 mg intravenous, As needed, Starting on Thu01/30/21 at 1400, Anesthesia Intra-op Given 01/30/2021 3:51 PM PUBLIC EVENTS FACILITIES RENTAL MANAGER 5 mg Given 01/30/2021 3:23 PM PUBLIC EVENTS FACILITIES RENTAL MANAGER 5 mg fentaNYL injection (SUBLIMAZE) Given 01/30/2021 1:23 PM PUBLIC EVENTS FACILITIES RENTAL MANAGER 50 mcg intravenous, As needed, Starting on Thu01/30/21 at 1323, Anesthesia Intra-op glycopyrrolate injection (ROBINUL) Given 01/30/2021 1:58 PM PUBLIC EVENTS FACILITIES RENTAL MANAGER 0.2 mg intravenous, As needed, Starting on Thu01/30/21 at 1345, Anesthesia Intra-op Given 01/30/2021 1:45 PM PUBLIC EVENTS FACILITIES RENTAL MANAGER 0.2 mg heparin (porcine) injection 5,000 Units Given 01/30/2021 1:34 PM PUBLIC EVENTS FACILITIES RENTAL MANAGER 5,000 Units 5,000 Units, subcutaneous, Once, On Thu01/30/21 at 1300, For 1 dose, Intra-Op, Administer prior to induction of anesthesia. HYDROmorphone (PF) injection (DILAUDID) Given 01/30/2021 2:55 PM PUBLIC EVENTS FACILITIES RENTAL MANAGER 0.4 mg intravenous, As needed, Starting on Thu01/30/21 at 1424, Anesthesia Intra-op Given 01/30/2021 2:24 PM PUBLIC EVENTS FACILITIES RENTAL MANAGER 0.6 mg lactated ringers New Bag 01/30/2021 6:20 PM PUBLIC EVENTS FACILITIES RENTAL MANAGER intravenous, Continuous Infusion: Per Instructions PRN, Starting on Thu01/30/21 at 1321, Anesthesia Intra-op New Bag 01/30/2021 1:21 PM PUBLIC EVENTS FACILITIES RENTAL MANAGER lactated ringers New Bag 01/30/2021 6:34 PM PUBLIC EVENTS FACILITIES RENTAL MANAGER intravenous, Continuous Infusion: Per Instructions PRN, Starting on Thu01/30/21 at 1327, Anesthesia Intra-op New Bag 01/30/2021 1:27 PM PUBLIC EVENTS FACILITIES RENTAL MANAGER lidocaine (PF) (cardiac) injection Given 01/30/2021 1:23 PM PUBLIC EVENTS FACILITIES RENTAL MANAGER 100 mg intravenous, As needed, Starting on Thu01/30/21 at 1323, Anesthesia Intra-op propofoL injection (DIPRIVAN) Given 01/30/2021 1:29 PM PUBLIC EVENTS FACILITIES RENTAL MANAGER 50 mg intravenous, As needed, Starting on Thu01/30/21 at 1323, Anesthesia Intra-op Given 01/30/2021 1:25 PM PUBLIC EVENTS FACILITIES RENTAL MANAGER 100 mg Given 01/30/2021 1:23 PM PUBLIC EVENTS FACILITIES RENTAL MANAGER 100 mg rocuronium injection (ZEMURON) Given 01/30/2021 4:42 PM PUBLIC EVENTS FACILITIES RENTAL MANAGER 10 mg intravenous, As needed, Starting on Thu01/30/21 at 1324, Anesthesia Intra-op Given 01/30/2021 3:23 PM PUBLIC EVENTS FACILITIES RENTAL MANAGER 20 mg Given 01/30/2021 2:03 PM PUBLIC EVENTS FACILITIES RENTAL MANAGER 50 mg sugammadex injection (BRIDION) Given 01/30/2021 6:45 PM PUBLIC EVENTS FACILITIES RENTAL MANAGER 200 mg intravenous, As needed, Starting on Thu01/30/21 at 1845, Anesthesia Intra-op documented in this encounter Care Teams Casino Attendant Relationship Specialty Start Date End Date Elsewhere, Pcp PCP - General Family Medicine 01/30/21 documented as of this encounter
--- OUTSIDE RECORDS SUMMARY | 2021-12-18 16:01 | XMS_ITS | Encounter Summary ---
:1950 Author Organization [facility] Address [address] [place] [address] Care Team Providers Name Role Phone Elsewhere, Pcp Primary Care Provider Unavailable Encounter Details Date Type Department Care Team Description 02/02/2021 Documentation Department of Urology in Ramesh Gaspar M.D. [place], [place] [address] [facility] [address] [place] [phone] (Wo rk) Social History Tobacco Use Types [...] 06/27/2021 relatives? How often do you attend anabaptism or bahai 1 to 4 times per year 06/27/2021 services? Do you belong to any clubs or organizations such No 06/27/2021 as anabaptism groups, unions, fraternal or athletic groups, or [...] place to sleep or slept in a chcf (including now)? Education Answer Date Recorded What is the highest level of school Associate degree: [employer], 09/06/2020 you have completed or the highest technical, or vocational p neha degree you have received? Sex Assigned at Date Recorded Male 06/27/2021 1:28 PM CDT documented as of this encounter Progress Notes Lenny Gaspar M.D. - 02/02/2021 8:37 PM CST I spoke with Mr. Barton regarding his surgical pathology. It demonstrates Averill 4+5 prostate cancer that demonstrates extraprostatic extension into the periprostatic soft tissue. There is no invasion of the seminal vesicles. All surgical margins are negative for cancer. All lymph nodes are negative for cancer. No adjuvant therapy is recommended. Will monitor his PSA in [address] an order for a PSA to be done in [facility]. K SETTER documented in this encounter Plan of Treatment Upcoming Encounters Date Type Specialty Care Team Description 12/23/2021 Appointment Radiation Oncology Low George M.D. [address] [place], [place] [phone] (Wo rk) documented as of this encounter Results PSA (Prostate-Specific Antigen), Diagnostic (06/27/2021 10:31 AM CDT) athologist Signature Prostate-Specif 1.9 <=6.5 ng/mL 06/27/2021 DTL ic Ag 11:59 AM CDT Comment: ----ADDITIONAL INFORMATION---- The testing method is an electrochemilum inescence assay manufactured by [employer] and performed on the Modular or Denise system . Values obtained with different assay met hods or kits may be different and cannot be used inte rchangeably. Test results cannot be interpreted as ab solute evidence for the presence or absence of malignant disease. Specimen Anatomical Collection Method Collection Time Receive d Time (Source) Location / / Volume Laterality Blood (Blood, 06/27/2021 10:31 06/27/2021 Venous) AM CDT 10:59 AM CDT Lenny Gaspar M.D. LAB BLOOD ADD-ON Performing Organization Address City/State/[facility] Code Phon e Number 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
--- OUTSIDE RECORDS SUMMARY | 2021-12-18 16:01 | XMS_ITS | Encounter Summary ---
:1950 Author Organization [facility] Address [address] [place] [address] Care Team Providers Name Role Phone Elsewhere, Pcp Primary Care Provider Unavailable Reason for Referral Outpatient (Routine) - Closed Specialty Diagnoses / Procedures Referred By Contact Refer red To Contact Urology Billie Wilkinson M.D. , M.B.A. 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 [address] [place] [address] [place] [phone] [place], [place] [phone] (Wo rk) Social History Tobacco Use Types [...] 06/27/2021 relatives? How often do you attend cheondoism or druze 1 to 4 times per year 06/27/2021 services? Do you belong to any clubs or organizations such No 06/27/2021 as cheondoism groups, unions, fraternal or athletic groups, or [...] or the highest technical, or vocational p traram degree you have received? Sex Assigned at Date Recorded Male 06/27/2021 1:28 PM CDT documented as of this encounter Plan of Treatment Upcoming Encounters Date Type Specialty Care Team Description 12/23/2021 Appointment Radiation Oncology Low George M.D. 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
--- OUTSIDE RECORDS SUMMARY | 2021-12-18 16:01 | XMS_ITS | Encounter Summary ---
:1950 Author Organization [facility] Address [address] [place] [address] Care Team Providers Name Role Phone Elsewhere, Pcp Primary Care Provider Unavailable Encounter Details Date Type Department Care Team Description 01/30/2021 Surgery [facility] OR Lenny Gaspar, ROBOTIC-ASSISTED RADICAL [address] [place] [phone] [facility] [phone] [place] [address] Social History Tobacco Use Types Packs/Day Years [...] 06/27/2021 relatives? How often do you attend orthodox or voodoo 1 to 4 times per year 06/27/2021 services? Do you belong to any clubs or organizations such No 06/27/2021 as orthodox groups, unions, fraternal or athletic groups, [...] or the highest technical, or vocational p [employer] degree you have received? Sex Assigned at Date Recorded Male 06/27/2021 1:28 PM CDT documented as of this encounter Last Filed Vital Signs Vital Sign Reading Time Taken Comments Blood Pressure 131/73 01/30/2021 7:45 PM TECHNICAL ASSISTANT Pulse 69 01/30/2021 7:45 PM TECHNICAL ASSISTANT Temperature 36.5 ??C (97.7 ??F) 01/30/2021 7:30 PM TECHNICAL ASSISTANT Respiratory Rate 17 01/30/2021 7:45 PM TECHNICAL ASSISTANT Oxygen Saturation 95% 01/30/2021 7:45 PM TECHNICAL ASSISTANT Inhaled Oxygen Concentration - - Weight 84.6 kg (186 lb 8.2 oz) 01/30/2021 11:48 AM TECHNICAL ASSISTANT Height 169 cm (5' 6.54) 01/30/2021 11:48 AM TECHNICAL ASSISTANT Body Mass Index 29.62 01/30/2021 11:48 AM TECHNICAL ASSISTANT documented in this encounter Discharge Summaries Billie Wilkinson M.D., M.B.A. - 01/31/2021 11:46 AM CST DISCHARGE SUMMARY BRIEF OVERVIEW Hospital: [facility] Discharge Provider: Lenny Gaspar M.D. Primary Team: [facility] Urology Surgery - [place] Primary Care Providers: Elsewhere, Pcp, PASkylarC (General) No address on file Primary Care Provider Phone Number: None Primary Care Provider Fax Number: None Other Providers: None Admission Date: 01/30/2021 Discharge Date: 01/31/2021 PRINCIPAL DIAGNOSIS Primary Malignant Neoplasm Of Prostate (HCC) SECONDARY DIAGNOSES Principal Problem: Primary Malignant Neoplasm Of Prostate (HCC) Resolved Problems: * No resolved hospital problems. * Surgery Information This Encounter Past Procedures (02/01/2020 to Today) Date Procedures Providers Location 01/30/2021 ROBOTIC-ASSISTED RADICAL PROSTATECTOMY., ROBOTIC-ASSISTED DISSECTION LYMPH NODE, PELVIC.Lenny Gaspar M.D. [facility] OR DISCHARGE DISPOSITION Home or Self Care [1] ACTIVE ISSUES REQUIRING FOLLOW UP - No lifting greater than 10 pounds for 6 weeks - Pain medications: please take scheduled Tylenol 1000 mg for the next 3-5 days until your pain has subsided, Trospium XL once daily at bedtime. Please use the Valium and Tramadol only if your pain is not controlled by other means - The Trospium, Tramadol, and Valium can cause constipation so take Senokot and Miralax as needed - Catheter removal on 02/11/2021. Please do not take Trospium for 24 hours prior to catheter removalas this medication may cause you to be unable to pee. Please begin the Bactrim antibiotic the day prior to catheter removal for a total 3 day course - 3 month follow-up with PSA and office visit with Dr. Gaspar OUTPATIENT FOLLOW UP Scheduled Appointments 02/11/2021 8:00 AM URO NURSE [address] [place] [address] Urology For appointment details refer to your Patient Appointment Guide. TEST RESULTS PENDING AT DISCHARGE Pending Labs Order Current Status Surgical Pathology, Frozen Lab In process DETAILS OF HOSPITAL STAY REASON FOR ADMISSION Primary Malignant Neoplasm Of Prostate (HCC) HOSPITAL COURSE PROCEDURE: Patient underwent RARP, lymph node dissection on 01/30/2021 in an uncomplicated fashion. HOSPITAL COURSE: Following surgery, patient was transferred to floor care in stable condition. By time of discharge patient was tolerating oral diet, ambulatory, with pain controlled via oral pain regimen. He met criteria for dismissal and was discharged home. DISCHARGE EXAM: General: resting comfortably in bed, Alert and oriented x 3 Heart: regular rate Lung: normal respiratory rate; not in respiratory distress Abd: soft, non distended, non tender; incision clean, dry, and intact : Chacon catheter draining clear yellow urine with occasional tiny clot Extremities: warm, well perfused Neuro: no gross deficits DISCHARGE LABS: H.7 Cr: 1.55 CONSULTS ORDERED DURING THIS ADMISSION None CONDITION AT DISCHARGE stable Discharge instructions were provided to the patient and caregiver(s). NICAL ASSISTANT documented in this encounter Discharge Instructions Discharge InstructionsAnnette Rogers - 01/31/2021 6:52 AM CST You were discharged from the [facility] Urology Surgery - Gaspar Service. Please identify this service name if you call with questions after hospitalization. NICAL ASSISTANT AttachmentsThe following attachments cannot be sent through Care Everywhere. Acetaminophen (By mouth) (Micronesian)Diazepam (By mouth) (Micronesian)Laxative, Stimulant (By mouth) (Micronesian)Bacitracin/Neomycin/Polymyxin B (On the skin) (Micronesian)Tramadol (By mouth) (Micronesian)Trospium (By mouth) (Micronesian)documented in this encounter Medications at Time of Discharge Medication Sig Dispensed Refills Start Date End Date amLODIPine (NORVASC) 10 Take 10 mg by mouth 0 mg tablet daily. diclofenac sodium Twice A Day as needed 0 021 (VOLTAREN) 50 mg EC tablet lisinopriL Take 40 mg by mouth 0 05/18/2020 (PRINIVIL,ZESTRIL) 40 at bedtime. mg tablet metoprolol tartrate Twice A Day 0 05/18/2020 (LOPRESSOR) 50 mg tablet triamterene-hydroCHLORO Take 1 tablet by 0 2020 thiazide (MAXZIDE-25) mouth daily. 37.5-25 mg per tablet acetaminophen (TYLENOL) Take 2 tablets (1,000 0 1 04/03/2020 500 mg tablet mg total) by mouth every 6 (six) hours as needed for pain. aspirin [address] tablet Hold for one week 0 01/31 post-surgery blood sugar diagnostic 2 times daily. 0 (Accu-Chek Guide test strips) strips cholecalciferol, Daily 0 vitamin D3, 25 mcg (1,000 Unit) tablet lancets 2 times daily. 0 05/22/2020 sulfamethoxazole-trimet Take 1 tablet by 6 tablet 0 202002/03/2021 hoprim (BACTRIM DS) mouth 2 (two) times a 800-160 mg per tablet day for 3 days. Begin one day prior to catheter removal diazePAM (VALIUM) 5 mg Take 1 tablet (5 mg 6 tablet 0 04/202002/11/2021 tablet total) by mouth 3 (three) times a day as needed (bladder spasms uncontrolled with Trospium). qqttsruc-blnkhmyxiy-blt You may experience 0 /04/202002/11/2021 ymyxin (NEOSPORIN) 3.5 pain at the tip of mg-400 unit-5,000 the penis while the unit/gram ointment catheter is indwelling. This may be improved by application of [id number] antibiotic ointment as needed and may be discontinued once the catheter is removed polyethylene glycol Take 1 packet (17 g 0 021 08/12/2021 (MIRALAX) 17 gram total) by mouth daily powder packet as needed for constipation. Dissolve each 17 g dose in 240 mLs (8 ounces) of beverage. sennosides (SENOKOT) Take 1 tablet (8.6 mg 0 04/202002/11/2021 8.6 mg tablet total) by mouth daily as needed for constipation. traMADoL (ULTRAM) 50 mg Take 1 tablet (50 mg 10 tablet 0 02/11/2021 tabletIndications: total) by mouth every Acute Pain Exception 6 (six) hours as needed for pain Indications: Acute Pain Exception. trospium (SANCTURA XR) Take 1 capsule (60 mg 10 capsule 0 02/11/2021 60 mg 24 hr capsule total) by mouth every morning before breakfast. DO NOT TAKE 24 HOURS PRIOR TO CATHETER REMOVAL documented as of this encounter Progress Notes Jolly Chinchilla Pharm.D., R.Ph. - 01/30/2021 11:16 AM CST Images from the original note were not included. Admission Medication History Note Adherence issues: No concerns Medication list source: Patient and Pharmacy or dispense records Medication related information: None Prior to Admission Medications Med List Status: Pharmacy Complete Set By: Jolly Chinchilla Pharm.D., R.Ph. at 01/30/2021 11:10 AM Taking? Last Dose Informant Start Date End Date LT amLODIPine (NORVASC) 10 mg tablet 01/30/2021 05/18/20 -- Take 10 mg by mouth daily. aspirin [address] tablet 01/16/2021 -- -- Daily blood sugar diagnostic (Accu-Chek Guide test strips) strips 05/22/20 -- 2 times daily. cholecalciferol, vitamin D3, 25 mcg (1,000 Unit) tablet -- -- Daily diclofenac sodium (VOLTAREN) 50 mg EC tablet 01/30/2021 05/18/20 -- Twice A Day as needed lancets (Accu-Chek Softclix Lancets) 05/22/20 -- 2 times daily. lisinopriL (PRINIVIL,ZESTRIL) 40 mg tablet 01/29/2021 05/18/20 -- Take 40 mg by mouth at bedtime. metoprolol tartrate (LOPRESSOR) 50 mg tablet 01/30/2021 05/18/20 -- Twice A Day triamterene-hydroCHLOROthiazide (MAXZIDE-25) 37.5-25 mg per tablet 01/30/2021 08/10/20 -- Take 1 tablet by mouth daily. NICAL ASSISTANT documented in this encounter H&P Notes Felipe Walker M.D. - 01/30/2021 12:35 PM CST INTERVAL HISTORY AND PHYSICAL Interval History & Physical completed - see Anesthesia Preevalaution. Felipe Walker M.D. NICAL ASSISTANT Source Note - Kalyn Mendenhall APRN, C.N.P., M.S.N. - 01/21/2021 11:00 AM TECHNICAL ASSISTANT SUBJECTIVE CHIEF COMPLAINT/REASON FOR CONSULT Chief Complaint Patient presents with ??? Pre-op Exam Cory Barton is a 70 y.o. y.o. male who presents today for a pre- operative consultation at the request of Dr Gaspar who plans on performing ROBOTIC-ASSISTED RADICAL PROSTATECTOMY and ROBOTIC-ASSISTED DISSECTION LYMPH NODE - PELVIC on the following date: 01/30/21 at [facility]. Based on information from the patient, the surgery has minimal risk. Procedure is: Intermediate Risk (cardiac risk <5%): CEA, head/neck surgery, intraabdominal or intrathoracic surgery, orthopedic surgery, prostate surgery RISK STRATIFICATION Functional status: Functional Class II: Able to perform 5-7 METS (walk > 4 blocks or climb over 2flights without cardiac or pulmonary Sx) Revised [Dangelo] Cardiac Risk Index (RCRI) 1. Hx ischemic heart disease: NO (Hx UT, Hx positive exercise test, current complaint of chest pain c/w myocardial ischemia, use of nitrate therapy, or ECG with pathological Q waves) (Do not count prior coronary revascularization procedure unless one of the other criteria for ischemic heart disease is present) 2. Hx heart failure: NO (History of congestive heart failure, Pulmonary edema, PND, Bilateral rales, S3 gallop, or CXR with pulmonary vascular redistribution) 3. Hx cerebrovascular disease (stroke or TIA): NO 4. Diabetes requiring perioperative insulin use: NO 5. CKD (stage 3 or creatinine >2.0) : NO 6. High-risk surgery type: NO (e.g., supra-inguinal vascular surgery, intra-peritoneal surgery, or intra- thoracic surgery) RCRI Score = 0 RCRI estimated risk of margarette-operative cardiac , non-fatal UT, or non-fatal cardiac arrest: 0 Predictors (0.4% risk of major cardiac event) [place] ABCDEFGHINO Checklist: A (Allergies): NO B (Bleeding tendency, personal or family):NO Recent aspirin, plavix, or warfarin use: NO C (Cardiac history*, recent Corticosteroids, Cervical spine problems): NO D (Diabetes): NO E (Embolic/stroke or clotting history): NO F (Family Hx anesthesia complications, personal or family): NO G (Glaucoma, GERD): NO H (Hepatitis or HIV risk): NO I (Intubation difficulties) Mallampati Score (Seated, neck in neutral position, tongue fully protruded without phonation): II (hard and soft palate, upper portion of tonsils anduvula visible) N (pre-existing Neuro deficits): NO O (Obstructive sleep apnea): NO CARDIOVASCULAR HISTORY cardiovascular history hypertension on treatment Stent in the past 12 months: NO History of bacterial endocarditis: NO History of heart valve replacement: NO PULMONARY HISTORY: Pulmonary History none Oxygen use: NO OTHER HISTORY Other Medical History none History of joint replacement: NO Need antibiotics prior to surgery or dental procedures: NO Recent illnesses: NO Recent antibiotic use: NO History of MRSA skin infections: NO Smoker: NO Alcohol use: NO Illicit drug use: NO : NO Glasses/Contacts: YES Hearing aids: NO Dentures/Dental issues: NO REVIEW OF SYSTEMS The following systems were negative: Constitutional, Skin, Eyes, ENT, CV, Respiratory, GI, , Hematologic, Musculoskeletal, Neuro, Psych PAST MEDICAL/SURGICAL HISTORY Patient Active Problem List Diagnosis ??? Primary Malignant Neoplasm Of Prostate (HCC) ??? Hypertension Essential Primary ??? PreDiabetes ??? Polyp Colon Adenomatous Past Surgical History: Procedure Laterality Date ??? GALLBLADDER SURGERY 2017 FAMILY HISTORY Family History Problem Relation Age of Onset ??? Colon cancer Father ??? Prostate cancer Maternal Grandfather SOCIAL HISTORY Social History Tobacco Use ??? Smoking status: Former Smoker Packs/day: 0.00 Years: 0.00 Pack years: 0.00 ??? Smokeless tobacco: Never Used Vaping Use ??? Vaping Use: never used Substance Use Topics ??? Alcohol use: Not Currently ??? Drug use: Never MEDICATIONS Current Outpatient Medications Medication Sig ??? amLODIPine (NORVASC) 10 mg tablet Take 10 mg by mouth daily. ??? aspirin [address] tablet Daily ??? blood sugar diagnostic (Accu-Chek Guide test strips) strips 2 times daily. ??? cholecalciferol, vitamin D3, 25 mcg (1,000 Unit) tablet Daily ??? diclofenac sodium (VOLTAREN) 50 mg EC tablet Twice A Day as needed ??? lancets (Accu-Chek Softclix Lancets) 2 times daily. ??? lisinopriL (PRINIVIL,ZESTRIL) 40 mg tablet Take 40 mg by mouth daily. ??? metoprolol tartrate (LOPRESSOR) 50 mg tablet Twice A Day ??? triamterene-hydroCHLOROthiazide (MAXZIDE-25) 37.5-25 mg per tablet Take 1 tablet by mouth daily. ALLERGIES No Known Allergies OBJECTIVE BP 143/80 (BP Location: Right arm, Patient Position: Sitting, Cuff Size: Regular) Pulse 78 Temp 36.7 ??C PHYSICAL EXAMINATION Constitutional General: He is not in acute distress. Appearance: Normal appearance. He is well-groomed and normal weight. He is not ill-appearing. HENT Right Ear: Tympanic membrane, ear canal and external ear normal. Left Ear: Tympanic membrane, ear canal and external ear normal. Nose: Nose normal. Mouth/Throat: Mouth: Mucous membranes are moist. Pharynx: Oropharynx is clear. Eyes Conjunctiva/sclera: Conjunctivae normal. Pupils: Pupils are equal, round, and reactive to light. Neck Thyroid: No thyromegaly. Vascular: No carotid bruit. Trachea: Trachea normal. Cardiovascular Rate and Rhythm: Normal rate and regular rhythm. Pulses: Normal pulses. Heart sounds: Normal heart sounds, S1 normal and S2 normal. No murmur heard. No friction rub. No gallop. No S3 or S4 sounds. Pulmonary Effort: Pulmonary effort is normal. Breath sounds: Normal breath sounds. No decreased breath sounds, wheezing, rhonchi or rales. Abdominal General: Abdomen is flat. Bowel sounds are normal. Palpations: Abdomen is soft. There is no hepatomegaly, splenomegaly or mass. Tenderness: There is no abdominal tenderness. Musculoskeletal General: Normal range of motion. Cervical back: Normal range of motion and neck supple. No muscular tenderness. Right lower leg: No edema. Left lower leg: No edema. Lymphadenopathy Cervical: No cervical adenopathy. Skin General: Skin is warm and dry. Neurological General: No focal deficit present. Mental Status: He is alert and oriented to person, place, and time. Cranial Nerves: Cranial nerves are intact. Motor: Motor function is intact. Psychiatric Attention and Perception: Attention normal. Mood and Affect: Mood and affect normal. Speech: Speech normal. Behavior: Behavior normal. Behavior is cooperative. Thought Content: Thought content normal. Cognition and Memory: Cognition normal. Judgment: Judgment normal. DIAGNOSTICS Chemistry: Lab Results Component Value Date/Time NA 144 01/21/2021 10:08 AM KPLASMA 3.7 01/21/2021 10:08 AM CL 104 01/21/2021 10:08 AM BICARB 32 (H) 01/21/2021 10:08 AM BUN 27 (H) 01/21/2021 10:08 AM CREATININE 1.39 (H) 01/21/2021 10:08 AM EGFRNONBLKAA 51 (L) 01/21/2021 10:08 AM GLUCOSE 117 01/21/2021 10:08 AM ANIONGAP 8 01/21/2021 10:08 AM CALCIUM 9.5 01/21/2021 10:08 AM CBC: Lab Results Component Value Date/Time WBC 5.4 01/21/2021 10:08 AM RBC 5.22 01/21/2021 10:08 AM HGB 15.9 01/21/2021 10:08 AM HCT 47.3 01/21/2021 10:08 AM PLT 221 01/21/2021 10:08 AM PT/INR: Lab Results Component Value Date/Time PT 11.5 01/21/2021 10:08 AM INR 1.0 01/21/2021 10:08 AM ASSESSMENT / PLAN 1. Preoperative Exam PLAN: Patient medically acceptable for planned procedure - See NAKIA in HPI above. The patient is deemed to have a medically satisfactory risk profile for the planned surgical procedure, and of low riskof a margarette-operative cardiac event. Patient is capable of >4 METS activity without unusual dyspneaor chest pain, no additional cardiac testing is needed. We reviewed medications to avoid taking prior to the procedure, including avoiding aspirin, NSAIDs, and herbal medications for at least 1 week prior to surgery. The patient knows to be fasting after midnight the day of surgery. Further preoperative and postoperative recommendations will be given prior to surgery by surgeon. Patient will followupwith me as needed. Blood pressure was mildly elevated today. Encourage patient to follow-up in clinic after surgery to readdress blood pressure management. Encouraged lifestyle modifications as they can go a long way toward controlling high blood pressure, discussed healthy lifestyle to help control blood pressure, including: Eating a heart-healthy diet with LESS salt, no more than 2,400 mg/day, getting regular physical activity, 150 minutes per week, maintaining a healthy weight or losing weight, limiting the amount of alcohol consumed, and as always tobacco cessation. Kalyn Mendenhall APRN, Rima.NVamshi., M.S.N. NICAL ASSISTANT documented in this encounter Nursing Notes Lien Medina R.N., C.M.S.R.N. - 01/31/2021 2:17 PM CST Mr. Barton discharged home self care with his and daughter. He used wheelchair escort when leaving the unit. NICAL ASSISTANT Lien Medina R.N., ScottieS.R.N. - 01/31/2021 2:15 PM CST Shift Goals: Clinical Goals for the Shift: Meet discharge criteria, catheter education Identify possible barriers to meeting goals/advancing plan of care: none End of Shift Summary: Patient discharge completed per providers orders. Education completed and documented. VSS. IV's out. Patient discharged home self care. Problem: PAIN - ADULT Goal: PT VERBALIZES/DEMONSTRATES ADEQUATE COMFORT LEVEL OR BASELINE Outcome: Adequate for Discharge Problem: KNOWLEDGE DEFICIT Goal: Patient/family/caregiver demonstrates understanding of disease process, treatment plan, medications, and discharge instructions Outcome: Adequate for Discharge Problem: SAFETY ADULT Goal: Maintain a safe environment Outcome: Adequate for Discharge Problem: DISCHARGE PLANNING Goal: Patient discharge needs identified Outcome: Adequate for Discharge NICAL ASSISTANT documented in this encounter OR Notes Op Note - Lenny Gaspar M.D. - 01/30/2021 2:05 PM CST Pre-op Diagnosis Primary Malignant Neoplasm Of Prostate (HCC) Post-op Diagnosis Primary Malignant Neoplasm Of Prostate (HCC) A first calender worker actively participated and was necessary for one or more of the following: opening,exposure and visualization during the case, maintaining hemostasis, wound closure resulting in its safe and expeditious completion. Findings Bilateral non-nerve sparing sparing radical prostatectomy Bilateral pelvic lymph node dissection including obturator and external iliac Watertight anastomosis This case was substantially more difficult than usual because of significant effort and difficulty mobilizing and identifying anatomical structures due to altered surgical field secondary to distorted anatomy and previous surgery.This case was substantially more difficult than usual because of tumor size, difficult location and obesity.This case was substantially more difficult than usual because of lysing adhesions/ scar tissue for 50 minutes. Complications None Description of Procedure After the patient was given prophylactic antibiotics, he was brought into the room, anesthetized, and placed in the modified lithotomy position. ??He was then prepped in the standard fashion. ??The peritoneal cavity was accessed, and pneumoperitoneum was established. ??A total of six laparoscopic working ports were placed. ??The surgical robot was then docked at the patient's bedside. ??The space of Retzius was developed using a combination of blunt and cautery dissection. ??The endopelvic fascia was dissected out. There was an enormous pubic notch that hindered visualization of the apex, which took a considerable amount of time to navigate across.??Bilateral pelvic lymphadenectomy, including obturator and iliac lymph nodes, was performed in the usual fashion, taking special care to preserve the obturator nerves. The endopelvic fascia was then incised bilaterally. ??The dorsal venous complex wasligated proximally and distally. ??The plane between the prostate and the bladder was established using cautery. This was difficult due to prior TURP defect.??The bladder neck was then reconstructed using 3 0 Vicryl suture. ??Vasa deferentia were dissected out and transected bilaterally. ??Seminal vesicles were dissected out circumferentially. This plane was highly inflamed ?? The plane between the prostate and the rectum was established using cold scissors. The pedicles of the prostate were taken using hemostatic clips and scissors. ??The neurovascular bundles were not purposefully spared. The dorsal venous complex was transected. ??The urethra was dissected circumferentially and transected. The prostate was then moved out of the surgical field and placed into an extraction bag. Excellent hemostasis was achieved. Vesicourethral anastomosis was then constructed in the usual fashion using a running suture. This again took a considerable amount of effort due to a large pubic notch impairing visualization. ??It was tested with 120 cc of saline and appeared to be watertight. ??All specimens and ports were removed under direct vision. ??All port sites were closed in the usual fashion. ??They were infiltrated with 0.5% bupivacaine. ??There were no complications, and the patient was taken to the recovery room in a stable condition. ? Lenny Gaspar M.D. NICAL ASSISTANT documented in this encounter Miscellaneous Notes Hospital Course - Billie Wilkinson M.D., M.B.A. - 01/30/2021 11:11 AM TECHNICAL ASSISTANT PROCEDURE: Patient underwent RARP, lymph node dissection on 01/30/2021 in an uncomplicated fashion. HOSPITAL COURSE: Following surgery, patient was transferred to floor care in stable condition. By time of discharge patient was tolerating oral diet, ambulatory, with pain controlled via oral pain regimen. He met criteria for dismissal and was discharged home. DISCHARGE EXAM: General: resting comfortably in bed, Alert and oriented x 3 Heart: regular rate Lung: normal respiratory rate; not in respiratory distress Abd: soft, non distended, non tender; incision clean, dry, and intact : Chacon catheter draining clear yellow urine with occasional tiny clot Extremities: warm, well perfused Neuro: no gross deficits DISCHARGE LABS: H.7 Cr: 1.55 NICAL ASSISTANT documented in this encounter Plan of Treatment Upcoming Encounters Date Type Specialty Care Team Description 12/23/2021 Appointment Radiation Oncology Low George M.D. [address] [place], [place] [phone] (Wo rk) Scheduled Orders Name Type Priority Associated Diagnoses Order S chedule URO Urethral cath Procedure Routine Primary Malignant Expec humble: removal & voiding Neoplasm Of Prostate , Expires: trial ([facility]) ([facility]) 04/30/2022 documented as of this encounter Procedures Procedure Name Priority Date/Time Associated Comments Diagnosis CBC WITHOUT Routine 01/31/2021 12:36 Results for this DIFFERENTIAL, B AM TECHNICAL ASSISTANT procedure ar e in the results section. BASIC METABOLIC PANEL, Routine 01/31/2021 12:36 R esults for this S/P AM TECHNICAL ASSISTANT procedure are i n the results section. ADULT OXYGEN THERAPY Routine 01/30/2021 9:38 PM TECHNICAL ASSISTANT ADULT OXYGEN THERAPY Routine 01/30/2021 7:34 PM TECHNICAL ASSISTANT ADULT OXYGEN THERAPY Routine 01/30/2021 7:34 PM TECHNICAL ASSISTANT SURGICAL PATHOLOGY, Routine 01/30/2021 6:25 PM Primary Maligna nt Results for this [facility] LAB TECHNICAL ASSISTANT Neoplasm Of procedure are i n Prostate (HCC) the results section. 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) ROBOTIC-ASSISTED 01/30/2021 12:48 Primary Malignant RADICAL PROSTATECTOMY PM TECHNICAL ASSISTANT Neoplasm Of Prostate (HCC) documented in this encounter Results (ABNORMAL) CBC without Differential (01/31/2021 12:36 AM TECHNICAL ASSISTANT) Patholo gist Method Time Signature Hemoglobin 13.7 13.2 - 01/31/2021 DTL 16.6 g/dL 1:22 AM TECHNICAL ASSISTANT Hematocrit 40.6 38.3 - 01/31/2021 DTL 48.6 % 1:22 AM TECHNICAL ASSISTANT Erythrocytes 4.43 4.35 - 01/31/2021 DTL 5.65 1:22 AM TECHNICAL ASSISTANT x10(12)/L MCV 91.6 78.2 - 01/31/2021 DTL 97.9 fL 1:22 AM TECHNICAL ASSISTANT RBC Distrib Width 12.4 11.8 - 01/31/2021 DTL 14.5 % 1:22 AM TECHNICAL ASSISTANT Platelet Count 181 135 - 317 01/31/2021 DTL x10(9)/L 1:22 AM TECHNICAL ASSISTANT Leukocytes 14.8 (H) 3.4 - 9.6 01/31/2021 DTL x10(9)/L 1:22 AM TECHNICAL ASSISTANT Specimen Anatomical Collection Method Collection Time Receive d Time (Source) Location / / Volume Laterality Blood (Blood, 01/31/2021 12:36 01/31/2021 1:16 Venous) AM TECHNICAL ASSISTANT AM TECHNICAL ASSISTANT Billie Wilkinson M.D., M.B.A. LAB BLOOD ADD-ON Performing Organization Address City/State/ZIP Code Phon e Number [facility] - [address] [place], [place] [address] [facility] [place] [address] [facility] [address] (ABNORMAL) Basic Metabolic Panel (01/31/2021 12:36 AM TECHNICAL ASSISTANT) Analysis Performed At Patho logist Time Signature Potassium, S 3.2 (L) 3.6 - 5.2 01/31/2021 DTL mmol/L 1:39 AM TECHNICAL ASSISTANT Sodium, S 144 135 - 145 01/31/2021 DTL mmol/L 1:39 AM TECHNICAL ASSISTANT Chloride, S 102 98 - 107 01/31/2021 DTL mmol/L 1:39 AM TECHNICAL ASSISTANT Bicarbonate, S 25 22 - 29 01/31/2021 DTL mmol/L 1:39 AM TECHNICAL ASSISTANT Anion Gap 17 (H) 7 - 15 01/31/2021 DTL 1:39 AM TECHNICAL ASSISTANT BUN (Blood Urea 28 (H) 8 - 24 01/31/2021 DTL Nitrogen), S mg/dL 1:39 AM TECHNICAL ASSISTANT Creatinine 1.55 (H) 0.74 - 01/31/2021 DTL 1.35 mg/dL 1:39 AM TECHNICAL ASSISTANT eGFR-Non 44 (L) >=60 01/31/2021 DTL Black/ mL/min/BSA 1:39 AM TECHNICAL ASSISTANT [place] Comment: ----ADDITIONAL INFORMATION---- Estimated GFR calculated using the 2009 CKD_EPI creatinine equation. eGFR-Black/ 51 (L) >=60 mL/min/BSA 2020 1:39 AM TECHNICAL ASSISTANT DTL Comment: ----ADDITIONAL INFORMATION---- Estimated GFR calculated using the 2009 CKD_EPI creatinine equation. Calcium, Total, S 8.6 (L) 8.8 - 10.2 mg/dL 01/31/2021 1:39 AM TECHNICAL ASSISTANT DTL Glucose, S 206 (H) 70 - 140 mg/dL 01/31/2021 1:39 AM TECHNICAL ASSISTANT D TL Specimen Anatomical Collection Method Collection Time Receive d Time (Source) Location / / Volume Laterality Blood (Blood, 01/31/2021 12:36 01/31/2021 1:25 Venous) AM TECHNICAL ASSISTANT AM TECHNICAL ASSISTANT Billie Wilkinson M.D., M.B.A. LAB BLOOD ADD-ON Performing Organization Address City/State/ZIP Code Phon e Number [facility] - [address] [place], [place] [address] [facility] [place] [address] [facility] [address] [facility] Surgical Pathology, Frozen Lab (01/30/2021 6:25 PM TECHNICAL ASSISTANT) Component Value Ref Test Analysis Performed Pathologis t Range Method Time At [facility] 02/01/2021 METH 3:30 PM TECHNICAL ASSISTANT Participated in Stacey Erwin, 02/01/2021 PRAVIN the [facility] -Pathology 3:30 PM Interpretation Fellow TECHNICAL ASSISTANT Report Annelise Jeff M.D., Ph.D. [phone] 02/02/20 METH electronically 3:30 PM signed by TECHNICAL ASSISTANT I verify that I have examined all relevant slides/materials for the specimen(s) and rendered or confirmed the diagnosis. Gross Description A. ??Received fresh and placed in formalin labele d 02/01/2021 METH bilateral 3:30 PM pelvic lymph nodes is a 3.6 x 3.5 x 1.6 cm aggregate of TECHNICAL ASSISTANT adipose and lymphatic tissue. ??Multiple (6) potential lymph nodes are identified. ??All lymph nodes are submitted for permanent sections only. ??Grossed by DEBBIE. B. ??Received fresh and placed in formalin labeled prostate is an 108 gram, 6.2 (S-I) x 6.4 (A-P) x 6.6 (R-L) cm radical prostatectomy with nodular hypertrophy. ??The specimen is inked, and the prostatic apex and bladder neck margins are submitted perpendicularly. ??Grossly, there is a 3.1 x 1.9 x 1.8 cm yellow mass involving the left mid to inferior posterior prostate. ??Human Intelligence tissue submitted for permanent sections only. ??Grossed by MIC. Block Summary A Bilateral pelvic lymph nodes 02/01 METH A1 Bilateral pelvic lymph nodes 1of2(A1) 3:30 PM A2 Bilateral pelvic lymph nodes 2of2(A1) TECHNICAL ASSISTANT A3 Bilateral pelvic lymph nodes 1of2(A2) A4 Bilateral pelvic lymph nodes 2of2(A2) A5 Bilateral pelvic lymph nodes 2(A3) A6 Bilateral pelvic lymph nodes 1of2(A4) A7 Bilateral pelvic lymph nodes 2of2(A4) A8 Bilateral pelvic lymph nodes 1(A5) B Prostate B1 Right anterior apex margin 1 B2 Right anterior apex margin 2 B3 Right posterior apex margin 1 B4 Right posterior apex margin 2 B5 Right bladder neck margin 1 B6 Right bladder neck margin 2 B7 Right bladder neck margin 3 B8 Left anterior apex margin 1 B9 Left anterior apex margin 2 B10 Left posterior apex margin 1 B11 Left posterior apex margin 2 B12 Left bladder neck margin 1 B13 Left bladder neck margin 2 B14 Left bladder neck margin 3 B15 Right inferior posterior B16 Right mid posterior B17 Right mid anterior B18 Right supoerior posterior B19 Left inferior posterior B20 Left mid posterior B21 Left mid anterior B22 Left superior posterior B23 Right seminal vesicle #1 B24 Right seminal vesicle #2 B25 Right seminal vesicle #3 B26 Right seminal vesicle #4 B27 Right seminal vesicle #5 B28 Left seminal vesicle #1 B29 Left seminal vesicle #2 B30 Left seminal vesicle #3 B31 Left seminal vesicle #4 B32 Left seminal vesicle #5 Interpretation FINAL DIAGNOSIS 02/01/2021 METH 3:30 PM A. ??Lymph nodes, bilateral pelvic, dissection: ??Multiple TECHNICAL ASSISTANT (6) lymph nodes are negative for metastatic carcinoma. B. ??Prostate gland, radical prostatectomy: ??Adenocarcinoma ([place] pattern 4+5, grade group 5) is identified forming a dominant mass (3.1 x 1.9 x 1.8 cm) in the left apex and posterior prostate. ??The tumor is not confined to the prostate with extraprostatic extension into soft tissue in the region of the left posterior prostate. ??The seminal vesicles are negative for tumor. ??All surgical margins are negative for tumor. Seen in consultation with: Wilner Ren M.D. [phone] SYNOPTIC REPORT: ??Prostate Procedure: ??Radical prostatectomy Prostate Size: 108 gram, 6.2 (S-I) x 6.4 (A-P) x 6.6 (R-L) cm Histologic Type: ??Acinar adenocarcinoma Histologic Grade ?? Grade Group and Valencia Score ?Grade Group 3 (Valencia Score 4+5=9) ?Minor Tertiary Pattern 5 (less than 5%): ??Not applicable ?Percentage of Pattern 4 in [place] score 7: ??Not applicable ?? Intraductal Carcinoma (IDC): ??Present ?? Cribriform Glands: ??Present Treatment Effect: ??No known pre-surgical therapy Tumor Quantitation ??Greatest dimension of dominant nodule: 31 mm ??Location: Left posterior Extraprostatic Extension: ??Present, non-focal Urinary Bladder Neck Invasion: ??Not identified Seminal Vesicle Invasion: ??Not identified Lymphovascular Invasion: ??Not identified Margins: All margins negative for invasive carcinoma. Regional Lymph Nodes Status All Regional Lymph Nodes Negative for Tumor ?? Number of Lymph Nodes Examined: 6 Distant Metastasis. ??Distant Site(s) Involved: ??Not applicable Pathologic Staging (AJCC, 8th edition) TNM Descriptors: ??Not applicable pT Category: pT3a pN Category: pN0 pM Category: ??Not applicable Additional Pathologic Findings: ??None identified The synoptic report incorporates information from all relevant surgical material and includes all required data elements of the current CAP Cancer Protocol. Specimen (Source) Anatomical Collection Method Collection Time Re ceived Time Location / / Volume Laterality Tissue (Prostate) 01/30/2021 7:16 PM TECHNICAL ASSISTANT Tissue (Lymph 01/30/2021 6:25 PM Node) TECHNICAL ASSISTANT Narrative This result has an attachment that is no t available. Lenny Gaspar M.D. LAB SURG PATH ORDERABLES Performing Organization Address City/State/[facility] Code Phon e Number [facility] - [address] [place], [place] [address] [facility] [place] [address] [facility] [address] documented in this encounter Visit Diagnoses Diagnosis Primary Malignant Neoplasm Of Prostate ( HCC) - Primary Primary Malignant Neoplasm Of Prostate ( HCC) Primary Malignant Neoplasm Of Prostate ( HCC) documented in this encounter Admitting Diagnoses Diagnosis Primary Malignant Neoplasm Of Prostate ( HCC) documented in this encounter Administered Medications Inactive Administered Medications - up to 3 most recent administrations Medication Order MAR Action Action Date Dose Rate Site acetaminophen injection 1,000 New Bag 01/30/2021 8:21 PM 1,000 mg 400 mL/hr mg TECHNICAL ASSISTANT 1,000 mg, intravenous, at 400 mL/hr, Administer over 15 Minutes, Once as needed, other, If patient has not received in previous 6 hours, Starting on 01/30/21 at 1933, For 1 dose, PACU (only), Oral unless RASS less than -1 or nausea/vomiting. Do not use if given in last 6 hours, Restriction Criteria (Pharmacy will review and approve if criteria met): Unable to take or tolerate medications administered via the enteral route or orally (not just NPO) acetaminophen tablet 1,000 mg (TYLENOL) Given 01/31/2021 1:41 PM TECHNICAL ASSISTANT 1,000 mg 1,000 mg, oral, Every 6 hours, First dose on Jennifer 01/31/21 at 0200 Given 01/31/2021 7:36 AM TECHNICAL ASSISTANT 1,000 mg Given 01/31/2021 2:07 AM TECHNICAL ASSISTANT 1,000 mg acetaminophen tablet 1,000 mg (TYLENOL) Given 01/30/2021 1:04 PM TECHNICAL ASSISTANT 1,000 mg 1,000 mg, oral, Once, On Thu01/30/21 at 1300, For 1 dose, Pre-Op, PreOp give in preprocedural area. amLODIPine tablet 10 mg (NORVASC) Given 01/31/2021 8:54 AM TECHNICAL ASSISTANT 10 mg 10 mg, oral, Daily, First dose on Thu01/31/21 at 0900 bacitracin zinc 500 unit/gram ointment Given 01/31/2021 8:54 AM TECHNICAL ASSISTANT 1 packet packet 1 packet 1 packet (1 application), topical, 3 times daily, First dose on Thu01/30/21 at 2145, Apply to tip of penis. Given 01/30/2021 10:50 PM TECHNICAL ASSISTANT 1 packet bacitracin zinc 500 unit/gram ointment Given 01/30/2021 7:03 PM TECHNICAL ASSISTANT 1 packet Other packet As needed, Starting on Thu01/30/21 at 1903, Intra-Op belladonna alkaloids-opium Given 01/30/2021 7:10 PM TECHNICAL ASSISTANT 1 suppos itory Rectum 16.2-60 mg suppository (B&O SUPPRETTS) As needed, Starting on Thu01/30/21 at 1910, Intra-Op bupivacaine HCl 0.25 % (2.5 Given 01/30/2021 7:03 PM TECHNICAL ASSISTANT 30 mL Abdominal Tissue mg/mL) injection (MARCAINE) As needed, Starting on Thu01/30/21 at 1903, Intra-Op caffeine-sodium benzoate injection 250 m g Given 01/30/2021 8:19 PM TECHNICAL ASSISTANT 250 mg 250 mg, intravenous, Once, On Thu01/30/21 at 2015, For 1 dose, PACU (only) ceFAZolin in dextrose (iso-os) IVPB 2 New Bag 01/31/2021 7:36 AM TECHNICAL ASSISTANT 2 g 200 mL/hr g (ANCEF) 2 g, intravenous, at 200 mL/hr, Administer over 30 Minutes, Every 8 hours, First dose on Jennifer 01/31/21 at 0000, For 2 doses, Start within 8 hours of last IV dose., Drug Monitoring Program: Pharmacist to adjust medication dosing based on indication and drug clearance factors., Indications: Prophylaxis, surgical New Bag 01/31/2021 12:11 AM TECHNICAL ASSISTANT 2 g 200 mL/hr celecoxib capsule 200 mg (CeleBREX) Given 01/30/2021 1:04 PM TECHNICAL ASSISTANT 200 mg 200 mg, oral, Once, On Thu01/30/21 at 1300, For 1 dose, Pre-Op D5W infusion 10-250 mL/hr, intravenous, As needed, Medications Inco mpatible with 0.9% NaCL, Starting on Thu01/30/21 at 2139, Infuse at the same ra te as the piggyback until tubing clears or up to a volume of 20 mL pre and post infusion for medications incompatible with 0.9% NaCL. Use 100 mL bag then disca rd. heparin (porcine) Given 01/31/2021 6:16 AM TECHNICAL ASSISTANT 5,000 Units Right Upper Arm injection 5,000 Units (Back) 5,000 Units, subcutaneous, Every 8 hours scheduled, First dose on Thu01/30/21 at 2200 Given 01/30/2021 10:49 PM TECHNICAL ASSISTANT 5,000 Units Righ t Upper Arm (Back) lactated ringers New Bag 01/31/2021 6:15 AM TECHNICAL ASSISTANT 125 mL/hr 125 mL/hr 125 mL/hr, intravenous, Continuous, Starting on Thu01/30/21 at 2145, Continue IV fluids from operating room at 125 ml/hour New Bag 01/30/2021 9:40 PM TECHNICAL ASSISTANT 125 mL/hr 125 mL/hr lactated ringers Continued from OR 01/30/2021 7:37 PM TECHNICAL ASSISTANT 20 mL/hr 20 mL/hr 20 mL/hr, intravenous, Continuous, Starting on Thu01/30/21 at 1845, PACU & Post-Op metoprolol tablet 50 mg (LOPRESSOR) Given 01/31/2021 8:54 AM TECHNICAL ASSISTANT 50 mg 50 mg, oral, 2 times daily, First dose on Thu01/30/21 at 2145 Given 01/30/2021 10:49 PM TECHNICAL ASSISTANT 50 mg NaCl 0.9% infusion 10-250 mL/hr, intravenous, As needed, Be tween Consecutive Piggyback Medications, Starting on Thu01/30/21 at 2139, Infuse at the same ra te as the piggyback until tubing clears or up to a volume of 20 mL . Select for IV medication administration when no maintenance IV available or when IV medication s are not compatible with maintenance fluid. NaCl 0.9% infusion 10-250 mL/hr, intravenous, As needed, Post Medications (Hazardous/Low Fluid Volume), Starting on Thu01/30/21 at 2139 , Infuse at the same rate as the medication until tubing cleared of medication, then discard. oxybutynin 24 hr tablet 10 mg (DITROPAN- XL) Given 01/30/2021 1:04 PM TECHNICAL ASSISTANT 10 mg 10 mg, oral, Once, On Thu01/30/21 at 1300, For 1 dose, Pre-Op, PreOp give in preprocedural area. Swallow whole. Do NOT crush, chew, or split tablet. oxyCODONE 12 hr tablet 10 mg (OxyCONTIN) Given 01/30/2021 1:04 PM TECHNICAL ASSISTANT 10 mg 10 mg, oral, Once, On Thu01/30/21 at 1300, For 1 dose, Pre-Op, PreOp give in preprocedural area. Swallow whole. Do NOT crush, chew, or split tablet. potassium chloride ER tablet 40 mEq Given 01/31/2021 7:18 AM TECHNICAL ASSISTANT 40 mEq (KLORCON/K-TAB) 40 mEq, oral, Once, On Jennifer 01/31/21 at 0645, For 1 dose, For K 3-3.4 mEq/L - give total of 40 mEq Swallow whole. Do NOT crush, chew, or split tablet., Monitor the following for replacement: Potassium, Replace Potassium per: Standard Schedule sennosides-docusate sodium 8.6-50 mg per Given 01/31/2021 8:54 A M TECHNICAL ASSISTANT 1 tablet tablet 1 tablet (SENOKOT-S) 1 tablet, oral, 2 times daily, First dose on Thu01/30/21 at 2145, Do not give if patient has diarrhea. Given 01/30/2021 10:49 PM TECHNICAL ASSISTANT 1 tablet sodium chloride 0.9 % injection 10 mL 10 mL, intravenous, As needed, line care , Peripheral Intravenous Catheter and Rapid Infusion Catheter, Starting on Thu at 2139, Prior to blood sampling, post blood transfusion or post blood sampling. sodium chloride 0.9 % injection 3 mL 3 mL, intravenous, As needed, line care, Peripheral Intravenous Catheter and Rapid Infusion Catheter, Starting on Thu at 2139, Prior to and following infusion and between multiple consecutive infusions. sodium chloride 0.9 % injection 3 mL Given 01/31/2021 8:54 AM TECHNICAL ASSISTANT 3 mL 3 mL, intravenous, Every 12 hours scheduled, First dose on Thu01/31/21 at 0900, Peripheral Intravenous Catheter and Rapid Infusion Catheter: When no infusion to maintain patency. triamterene-hydroCHLOROthiazide 37.5-25 mg Given 01/31 8:54 AM TECHNICAL ASSISTANT 1 tablet per tablet 1 tablet (MAXZIDE-25) 1 tablet, oral, Daily, First dose on Thu01/31/21 at 0900 trospium tablet 20 mg (SANCTURA) Given 01/31/2021 6:16 AM TECHNICAL ASSISTANT 20 mg 20 mg, oral, 2 times daily before breakfast and dinner, First dose on Thu01/31/21 at 0700, trospium was interchanged for trospium XR, Restriction Criteria (Pharmacy will review and approve if criteria met): Use in patients 65 years of age or older documented in this encounter Active and Recently Administered Medications Times are shown in TECHNICAL ASSISTANT. Scheduled Medication Order 01/29/2021 01/30/2021 01/31/2021 acetaminophen tablet 1,000 mg (TYLENOL) 0207 (Given - Provider: Cristina Horner, R.N.)0736 (Given - Provider: Funmi Sarkar R.N.)1341 (Given - Provider: Lien Medina RAaliyah, C.M.S.R.N.) 1,000 mg, oral, Every 6 hours, First dose on Thu01/31/21 at 0200 acetaminophen tablet 1,000 mg (TYLENOL) (COMPLETED) 1304 (Given - Provider: Lisa Tran R.N.) 1,000 mg, oral, Once, On Thu01/30/21 at 1300, For 1 dose, Pre-Op, PreOp give in preprocedural area. amLODIPine tablet 10 mg (NORVASC) 0854 (Given - Provider: Lachelle Taylor RAlvarezNAlvarez) 10 mg, oral, Daily, First dose on Thu01/31/21 at 0900 bacitracin zinc 500 unit/gram ointment packet 1 packet 2250 (Given - Provider: Rubia Hagan R.N.) 0854 (Given - Provider: Angle Lynn)1400 (Due) 1 packet (1 application), topical, 3 jenniffer es daily, First dose on Thu01/30/21 at 2145, Apply to tip of penis. caffeine-sodium benzoate injection 250 mg (COMPLETED) 2018 (Given - Provider: Ai Petit RAlvarezNAlvarez) 250 mg, intravenous, Once, On Thu01/30/21 at 2015, For 1 dose, P ACU (only) ceFAZolin in dextrose (iso-os) IVPB 2 g (ANCEF) (COMPLETED) 001 (New Bag - Provider: Cristina Horner RAaliyah)0736 (New Bag - Provider: Funmi Sarkar RAaliyah) 2 g, intravenous, at 200 mL/hr, Administ er over 30 Minutes, Every 8 hours, First dose on Jennifer 01/31/21 at 0000, For 2 doses, Start within 8 hours of last IV dose., Drug Monitoring Program: Pharmacist to eric djust medication dosing based on indicat ion and drug clearance factors., Indications: Prophylaxis, surgical ceFAZolin injection 2 g (ANCEF) (COMPLETED) 1403 (Given - Provider: Damien Gill APRN, EDGAR)1653 (Given - Provider: Gurinder Tate APRN, EDGAR) 2 g, intravenous, at 20 mL/hr, Administe r over 30 Minutes, Once, On Thu01/30/21 at 1300, For 1 dose, Intra-Op, If needed, reconstitute vial per package insert instructions. See IVAG for administration g uidelines. , Drug Monitoring Program: [facility] to adjust medication dosing based on indication and drug clearance factors., Indications: Prophylaxis, surgical celecoxib capsule 200 mg (CeleBREX) (COMPLETED) 1304 (Given - Provider: Lisa Tran RAaliyah) 200 mg, oral, Once, On Thu01/30/21 at 1300, For 1 dose, Pre-Op heparin (porcine) injection 5,000 Units 2249 (Given - Provider: Rubia Haagn R.N.) 0616 (Given - Provider: Cristina Horner R.N.)1400 (Due) 5,000 Units, subcutaneous, Every 8 hours scheduled, First dose on Thu01/30/21 at 2200 heparin (porcine) injection 5,000 Units (COMPLETED) 1334 (Given - Provider: Liz Ramirez RAlvarezNAlvarez) 5,000 Units, subcutaneous, Once, On Thu01/30/21 at 1300, For 1 dose, Intra-Op, Administer prior to induction of anesthesia. lisinopriL tablet 40 mg (PRINIVIL,ZESTRIL) 40 mg, oral, Daily at bedtime, First dose on Thu01/31/21 at 2100 metoprolol tablet 50 mg (LOPRESSOR) 2249 (Given - Provider: Rubia Hagan R.N.) 0854 (Given - Provider: Angle Lynn) 50 mg, oral, 2 times daily, First dose on Thu01/30/21 at 2145 oxybutynin 24 hr tablet 10 mg (DITROPAN-XL) (COMPLETED) 1304 (Given - Provider: Lisa Tran R.N.) 10 mg, oral, Once, On Thu01/30/21 at 130 0, For 1 dose, Pre-Op, PreOp give in preprocedural area. Swallow whole. Do NOT crush, chew, or split tablet. oxyCODONE 12 hr tablet 10 mg (OxyCONTIN) (COMPLETED) 1304 (Given - Provider: Lisa Tran R.N.) 10 mg, oral, Once, On Thu01/30/21 at 130 0, For 1 dose, Pre-Op, PreOp give in preprocedural area. Swallow whole. Do NOT crush, chew, or split tablet. potassium chloride ER tablet 40 mEq (KLORCON/K-TAB) (COMPLETED) 0718 (Given - Provider: Lachelle Taylor R.N.) 40 mEq, oral, Once, On Thu01/31/21 at 06 45, For 1 dose, For K 3-3.4 mEq/L - give total of 40 mEq Swallow whole. Do NOT crush, chew, or split tablet., Monitor the following for replacement: Potassium, Replace Potassium per: Standard Schedule sennosides-docusate sodium 8.6-50 mg per tablet 1 tablet (SE NOKOT-S) 6809 (Given - Provider: Rubia Hagan R.N.) 0854 (Given - Provider: Lachelle Taylor R.N.) 1 tablet, oral, 2 times daily, First dos e on Thu01/30/21 at 2145, Do not give if patient has diarrhea. sodium chloride 0.9 % injection 3 mL 0854 (Given - Provider: Lachelle Taylor R.N.) 3 mL, intravenous, Every 12 hours schedu led, First dose on Thu01/31/21 at 0900, Peripheral Intravenous Catheter and Rapid Infusion Catheter: When no infusion to maintain patency. triamterene-hydroCHLOROthiazide 37.5-25 mg per tablet 1 tablet ( MAXZIDE-25) 0854 (Given - Provider: Lachelle Taylor R.N.) 1 tablet, oral, Daily, First dose on Thu01/31/21 at 0900 trospium tablet 20 mg (SANCTURA) 0616 (Given - Provider: Cristina Horner R.N.) 20 mg, oral, 2 times daily before breakf ast and dinner, First dose on Thu01/31/21 at 0700, trospium was interchanged for trospium XR, Restriction Criteria (Pharmacy will review and approve if criteria met): Use in patients 65 years of age or older Continuous Medication Order 01/29/2021 01/30/2021 01/31/2021 lactated ringers 2140 (New Bag - Provider: Ike Horner R.N.) 0615 (New Bag - Provider: Cristina Horner R.N.)0835 (Stopped - Provider: Lachelle Taylor R.N.) 125 mL/hr, intravenous, Continuous, Star ting on Thu01/30/21 at 2145, Continue IV fluids from operating room at 125 ml/hour lactated ringers (CANCELED) 1937 (Contin ued from OR - Provider: Ai Petit R.N. - Comment: 400 in bag) 20 mL/hr, intravenous, Continuous, Start ing on Thu01/30/21 at 1845, PACU & Post-Op PRN Medication Order 01/29/2021 01/30/2021 01/31/2021 acetaminophen injection 1,000 mg (COMPLETED) 2020 (New Bag - Provider: Ai Petit R.N.) 1,000 mg, intravenous, at 400 mL/hr, Adm inister over 15 Minutes, Once as needed, other, If patient has not received in previous 6 hours, Starting on Thu01/30/21 at 1933, For 1 dose, PACU (only), Oral un less RASS less than -1 or nausea/vomitin g. Do not use if given in last 6 hours, Restriction Criteria (Pharmacy will review and approve if criteria met): Unable to take or tolerate medications administer ed via the enteral route or orally (not just NPO) bacitracin zinc 500 unit/gram ointment packet (CANCELED) 1902 (Given - Provider: Lenny Gaspar M.D. - Comment: tip of penis) As needed, Starting on Thu01/30/21 at 190, Intra-Op belladonna alkaloids-opium 16.2-60 mg suppository (B&O SUPPR ETTS) (CANCELED) 1909 (Given - Provider: Lenny Gaspar M.D.) As needed, Starting on Thu01/30/21 at 1910, Intra-Op benzocaine-menthoL 15-3.6 mg per lozenge 1 lozenge (CEPACOL) 1 lozenge, oral, As needed, sore throat, Starting on Thu01/30/21 at 213 bisacodyL suppository 10 mg (DULCOLAX) 10 mg, rectal, Daily PRN, constipation, Starting on Thu01/30/21 at 213, Ordered sequence of administration: polyethylene glycol, then bisacodyl until BM achieved. bupivacaine HCl 0.25 % (2.5 mg/mL) injection (MARCAINE) (CAN CELED) 1902 (Given - Provider: Lenny Gaspar M.D.) As needed, Starting on Thu01/30/21 at 1903, Intra-Op D5W infusion 10-250 mL/hr, intravenous, As needed, Me dications Incompatible with 0.9% NaCL, Starting on Thu01/30/21 at 2139, Infuse at the same rate as the piggyback until tubing clears or up to a volume of 20 mL pr e and post infusion for medications inco mpatible with 0.9% NaCL. Use 100 mL bag then discard. diazePAM tablet 5 mg (VALIUM) 5 mg, oral, 3 times daily PRN, bladder s pasms uncontrolled with Trospium, Starting on Thu01/30/21 at 2138 diphenhydrAMINE capsule 25 mg (BENADRYL) 25 mg, oral, Every 4 hours PRN, itching, Starting on Thu01/30/21 at 2137 lactated Ringer's bolus 500 mL 500 mL, intravenous, at 500 mL/hr, Admin ister over 1 Hours, As needed, Urinary output less than 30 mL/hour x 2 consecutive hours, Starting on Thu01/30/21 at 2137, For 1 dose, May repeat x 1 within 48 hours. NaCl 0.9% infusion 10-250 mL/hr, intravenous, As needed, Be tween Consecutive Piggyback Medications, Starting on Thu01/30/21 at 2138, Infuse at the same rate as the piggyback until tubing clears or up to a volume of 20 mL. Select for IV medication administration when no maintenance IV available or when IV medications are not compatible with maintenance fluid. NaCl 0.9% infusion 10-250 mL/hr, intravenous, As needed, Po st Medications (Hazardous/Low Fluid Volume), Starting on Thu01/30/21 at 2138, Infuse at the same rate as the medication until tubing cleared of medication, then discard. naloxone injection 0.2 mg (NARCAN) 0.2 mg, intravenous, As needed, respirat ory depression, Starting on Thu01/30/21 at 2137, For RASS Score -4 or less, respiratory rate of less than 8 breaths/min. Notify provider/service and rapid response team (if available at institution). ondansetron (PF) injection 4 mg (ZOFRAN) 4 mg, intravenous, Every 6 hours PRN, na usea, vomiting, Starting on Thu01/30/21 at 2137, For 48 hours, Reassess for nausea or vomiting after at least 10 minutes. If nausea or vomiting persists administe r next ordered antiemetic medications (o rder for antiemetic medication administration ondansetron then haloperidol then promethazine). polyethylene glycol powder packet 17 g (MIRALAX) 17 g, oral, Daily PRN, constipation, Sta rting on Thu01/30/21 at 213, Ordered sequence of administration: polyethylene glycol, then bisacodyl until BM achieved. Avoid mixing with starch-based thickened liquids. promethazine injection 6.25 mg (PHENERGAN) 6.25 mg, intravenous, Every 6 hours PRN, nausea, vomiting, Starting on Thu01/30/21 at 2138, For 48 hours, RASS must be -2 or higher to administer. Reassess for nausea or vomiting after at least 10 minut es. If nausea or vomiting persists admin ister next ordered antiemetic medications (order for antiemetic medication administration ondansetron then haloperidol then promethazine) sodium chloride 0.9 % injection 10 mL 10 mL, intravenous, As needed, line care , Peripheral Intravenous Catheter and Rapid Infusion Catheter, Starting on Thu01/30/21 at 2138, Prior to blood sampling, post blood transfusion or post blood sampling. sodium chloride 0.9 % injection 3 mL 3 mL, intravenous, As needed, line care, Peripheral Intravenous Catheter and Rapid Infusion Catheter, Starting on Thu01/30/21 at 213, Prior to and following infusion and between multiple consecutive infusions. traMADoL tablet 50 mg (ULTRAM) 50 mg, oral, Every 6 hours PRN, moderate pain or score 4-6 of 10, Starting on Thu01/30/21 at 2139 documented in this encounter Care Teams Jive Developer Relationship Specialty Start Date End Date Elsewhere, Pcp PCP - General Family Medicine 01/30/21 documented as of this encounter
--- OUTSIDE RECORDS SUMMARY | 2021-12-18 16:01 | XMS_ITS | Encounter Summary ---
:1950 Author Organization [facility] Address [address] [place] [id number] Care Team Providers Name Role Phone Elsewhere, Pcp Primary Care Provider Unavailable Reason for Referral Outpatient (Routine) - Closed Specialty Diagnoses / Procedures Referred By Contact Refer red To Contact Radiation Oncology Diagnoses Primary Malignant Neoplasm Of Prostate (HCC) [facility] [address] [place] [phone] Referral ID Status Reason Start Date Expiration Date Visits Requ ested Visits Authorized [id number] Closed 06/27/2021 06/27/2022 1 1 MRI/CAT/PET Scan (Routine) - Closed Specialty Diagnoses / Procedures Referred By Contact Refer red To Contact Radiology Diagnoses Primary Malignant Neoplasm Of Prostate (HCC) [facility] Procedures MR Prostate without and with IV Contrast C.N.P. [address] [place] [phone] Referral ID Status Reason Start Date Expiration Date Visits Requ ested Visits Authorized [id number] Closed 06/27/2021 06/27/2022 1 1 MRI/CAT/PET Scan (Routine) - Closed Specialty Diagnoses / Procedures Referred By Contact Refer red To Contact Diagnoses Primary Malignant Neoplasm Of Prostate (HCC) Funmi Montano APRN, [place] Procedures PET CT Choline C.N.P. [address] [place] [phone] Referral ID Status Reason Start Date Expiration Date Visits Requ ested Visits Authorized [id number] Closed 06/27/2021 06/27/2022 1 1 Reason for Visit Outpatient (Routine) - Closed Specialty Diagnoses / Procedures Referred By Contact Refer red To Contact Urology Billie Wilkinson M.D. , M.B.A. [facility] 200 [place], [place] [phone] Referral ID Status Reason Start Date Expiration Date Visits Requ ested Visits Authorized [id number] Closed 02/25/2021 02/25/2022 1 1 Encounter Details Date Type Department Care Team Description 06/27/2021 Office Visit Department of Urology Lenny Gaspar, Prim maci Malignant Neoplasm Of Prostate (HCC) (Primary Dx[facility] [place] 200 [facility] 200 [place] [phone] Social History Tobacco Use Types Packs/Day Years [...] How often do you attend muslim or latter-day 1 to 4 times per year 06/27/2021 [...] place to sleep or slept in a fdc (including now)? Education Answer Date Recorded What is the highest level of school Associate degree: academ program 06/27/2021 you have completed or the highest degree you have received? Sex Assigned at Date Recorded Male 06/27/2021 1:28 PM CDT documented as of this encounter Progress Notes Funmi Montano APRN, C.N.P. - 06/27/2021 2:00 PM CDT SUBJECTIVE CHIEF COMPLAINT / REASON FOR VISIT Adenocarcinoma of the prostate recheck HISTORY OF PRESENT ILLNESS Mr. Barton is a pleasant 70 y.o. gentleman who presents back for his first postoperative prostatecancer recheck. Patient had a PSA of 5.3 and had an abnormal MRI of the prostate July 2020 which demonstrated a 79 g size gland with a 2.2 cm PI-RADS 5 lesion at the left posterior lateral mid apical peripheral zone. There is concerns for neurovascular bundle involvement on the left as well as potential extracapsular extension. Prostate biopsy 08/30/2020 demonstrated Valencia 3 + 4 adenocarcinoma. He proceeded with a robotic assisted laparoscopic prostatectomy in a non nerve-sparing fashion with limited pelvic lymphadenectomy 01/30/2021. Final pathology demonstrated Valencia 4 + 5, pT3a, N0 (0/6), R0 thony nocarcinoma the prostate. His PSA comes back detectable at 1.9 today. Patient had uncomplicated postoperative course. He notes that he wore pads for approximately 1 month. He denies any urinary incontinence. He denies hesitancy. He denies gross hematuria. He denies dysuria. Patient denies any pain today. He denies urolithiasis. He denies any urinary tract infections. OBJECTIVE PHYSICAL EXAMINATION General: Well-appearing, in no acute apparent distress. DIAGNOSTICS Labs: Latest Reference Range & Units 06/27/21 10:31 Prostate-Specific Ag <=6.5 ng/mL 1.9 [1] ASSESSMENT / PLAN #1 Status post robotic assisted laparoscopic prostatectomy in the non nerve- sparing fashion for Valencia 4 + 5, pT3a, N0, R0 adenocarcinoma the prostate #2 PSA 1.9 following prostatectomy #3 Dysfunction Erectile It was my pleasure to meet Mr. Barton in clinic for his first postoperative prostate cancer recheck along with Dr. Gaspar. We reviewed with patient that unfortunately his first PSA comes back at 1.9. We would like to send him for imaging to look for distribution of disease with MRI of the prostatic fossa as well as a C11 PET choline scan. We discussed if there is localized disease on staging imagingthe next step would be radiation therapy. We will pre schedule him for radiation oncology consultation after the imaging studies. We discussed if there is disease noted outside of the pelvis next step would likely be chemohormonal therapy him we would get him in touch with our advanced prostate cancerclinic. Patient has had excellent urinary recovery and denies incontinence. I did discuss that he had bilateral wide resection therefore the PDE5 inhibitors will not be effective for him for penile rehabilitation. I discussed options including penile injectables as well as a penile implant if he has interest.At this time, patient is not interested but will let us know in the future and we would be happy to facilitate an appointment with our men's Health Team. Please see Dr. Gaspar's note for full details on discussion and plan of care. Plan 1. C11 PET choline scan 2. MRI of the prostatic fossa 3. Patient will be tentatively scheduled for radiation oncology after imaging studies. I personally spent over half of a total 20 minutes in counseling and discussion with the patient andcoordination of care as described above. Funmi Montano APRN, C.N.P. 06/27/2021 2:26 PM CDT Answers for HPI/ROS submitted by the patient on 06/27/2021 No general issues: Yes No eye issues: Yes No ENT issues: Yes No heart issues: Yes No respiratory issues: Yes No GI issues: Yes No muscle/bone issues: Yes No skin issues: Yes No neurologic issues: Yes No mental health issues: Yes No blood/lymph issues: Yes No urinary/reproductive issues: Yes Lenny Gaspar M.D. - 06/27/2021 2:00 PM CDT I have personally reviewed the past medical history, pertinent review of systems, family history, surgical history and physical exam. I have met with and evaluated the patient. I have discussed the case with my clinical team and I agree with the plan and action as outlined by my team Is my pleasure to meet with Mr. Barton for discussion of management of his prostate cancer. He underwent a robotic radical prostatectomy on 02/19/2021. His pathology demonstrated T3a Valencia 9prostate cancer. Margins were negative. All nodes were negative. Unfortunately, his PSA today comes back at 1.9 suggesting persistence of disease. We discussed the potential for metastatic prostate cancer. I would like to staging with a MRI of the pelvis fossa, as well as a PSMA PET choline. Following this, I would like for him to visit with my colleague Dr. Serrato as well as Radiation Oncology for discussion of salvage therapy documented in this encounter Plan of Treatment Upcoming Encounters Date Type Specialty Care Team Description 12/23/2021 Appointment Radiation Oncology Low George M.D. [address] [place] [phone] (Wo rk) Scheduled Referrals Name Type Priority Associated Diagnoses Order S [facility] Radiation Oncology Outpatient Referral Routine Primary Maligna nt Expected: - consult Neoplasm Of Prostate 022 (clinic) ([facility]) (Approximate), Expires: 09/26/2022 documented as of this encounter Results Prostate without and with IV Contrast (07/02/2021 [...] to the left of the urethra, (series [id number], image 26) withou t a discrete lesion [...] ??Highly suspicious Procedure Note Yonas Alexander M.B.B.S., MAlvarezD. - 2 MR PROSTATE WITHOUT AND WITH IV CONTRAST COMPARISON: Same day PET choline CLINICAL HISTORY: Recurrent suspected. P SA 1.9 ng/mL. PROSTATE BED: Postoperative changes of p rostatectomy. Mild increased perfusion to the left of the urethra, (series [id number], image 26) withou t a discrete lesion [...] for bone metastasis. Funmi Montano APRN, C.N.P. IMTl MRI PROCEDURES PET CT Choline (07/02/2021 1:32 PM CDT) [...] screen captures provided. Funmi Montano APRN, C.N.P. IMG NM PROCEDURES PSA (Prostate-Specific Antigen), Diagnostic (07/02/2021 10:49 AM [...] Organization Address City/State/ZIP Code Phon e Number [facility] - [address] [place], [place] [phone] [employer] [facility] [place] [place] [address] Laboratories-[facility] [address] documented in this encounter Visit Diagnoses Diagnosis Primary Malignant Neoplasm Of Prostate ( HCC) - Primary Dysfunction Erectile Primary Malignant Neoplasm Of Prostate ( HCC) Primary Malignant Neoplasm Of Prostate ( HCC) documented in this encounter Care Teams In Store Marketer Relationship Specialty Start Date End Date Elsewhere, Pcp PCP - General Family Medicine 01/30/21 documented as of this encounter
--- OUTSIDE RECORDS SUMMARY | 2021-12-18 16:01 | XMS_ITS | Encounter Summary ---
:1950 Author Organization [facility] Address [address] [place] [address] Care Team Providers Name Role Phone Elsewhere, Pcp Primary Care Provider Unavailable Reason for Visit Outpatient (Routine) - Closed Specialty Diagnoses / Procedures Referred By Contact Refer red To Contact Diagnoses Primary Malignant Neoplasm Of Prostate (HCC) Silvia Eng M.D. [facility] Procedures URO Urethral cath removal & voiding trial (UCO/VT) [address] [place] [phone] Referral ID Status Reason Start Date Expiration Date Visits Requ ested Visits Authorized [id number] Closed 01/31/2021 01/31/2022 1 1 Encounter Details Date Type Department Care Team Description 02/11/2021 Procedure visit Department of Silvia Eng M.D. [address] [place] [address] [phone] Primary Malignant Urology in Concha Piedra R.N. [address] [place] [address] [phone] Neoplasm Of Prostate [place], [place] (HCC) [address] [place] [phone] Social History Tobacco Use Types Packs/Day Years [...] 06/27/2021 relatives? How often do you attend mormonism or judaism 1 to 4 times per year 06/27/2021 services? Do you belong to any clubs or organizations such No 06/27/2021 as mormonism groups, unions, fraternal or athletic groups, or [...] documented as of this encounter Progress Notes Concha Piedra, R.N. - 02/11/2021 11:00 AM CST CHIEF COMPLAINT Reason for visit, urinary catheter removal post: robotic-assisted radical prostatectomy and pelvic lymphadenectomy by Dr. Lenny Gaspar on January 30, 2021. IMPRESSION/REPORT/PLAN Patient has started his antibiotic. Patient has stopped his ditropan as indicated 24 hours prior to UCO. Patient is free of ketchup or kat colored urine. Nursing Intervention: Patient instilled with 150 mL's sterile normal saline prior to catheter removal. Patient able to void 175 mL's pink urine with an ultrasound PVR of 0 mL's. Patient tolerated procedure well. Provider in to see patient: No Assessed for DVT: No erythema present and No bilateral lower extremity edema present Assessed Incision(s): Intact Last BM: 02/11/2021 Patient rated pain at a 0 on the 0-10 pain scale. Pathology discussed with patient :Yes. Pathology discussed with patient by: Dr. Gaspar Care plan: High risk prostate cancer Survivorship Care Plan initiated and discussed with the patient Patient education: use of incontinence pads and leakage of urine , to push fluids , hematuria , burning with urination , increased frequency/urgency , to remain on weight restrictions for 6 weeks, urinary control exercises , to urinate 2 more times before leaving the clinic and if they urinate to their satisfaction they may leave , to urinate often and to return to clinic if having voiding issues if before 4PM, if after hours to report to their local emergency room if unable to void T SALES ASSOCIATE documented in this encounter Plan of Treatment Upcoming Encounters Date Type Specialty Care Team Description 12/23/2021 Appointment Radiation Oncology Low George M.D. [address] [place], [place] [phone] (Wo rk) documented as of this encounter Visit Diagnoses Diagnosis Primary Malignant Neoplasm Of Prostate ( HCC) documented in this encounter Care Teams It Security Engineer Relationship Specialty Start Date End Date Elsewhere, Pcp PCP - General Family Medicine 01/30/21 documented as of this encounter
--- OUTSIDE RECORDS SUMMARY | 2021-12-18 16:01 | XMS_ITS | Encounter Summary ---
:1950 Author Organization [facility] Address [address] [place] [address] Care Team Providers Name Role Phone Elsewhere, Pcp Primary Care Provider Unavailable Reason for Visit Reason Comments Appointment Encounter Details Date Type Department Care Team Description 02/21/2021 Clinical Communication Department of Urology Charles Gaspar, Appointment in [place] [address] [facility] [address] [place] [phone] Social History Tobacco Use Types Packs/Day Years [...] 06/27/2021 relatives? How often do you attend samaritan or buddhist 1 to 4 times per year 06/27/2021 services? Do you belong to any clubs or organizations such No 06/27/2021 as samaritan groups, unions, fraternal or athletic groups, or [...] place to sleep or slept in a mcc (including now)? Education Answer Date Recorded What is the highest level of school Associate degree: nilsa alas, 09/06/2020 you have completed or the highest technical, or vocational p neha degree you have received? Sex Assigned at Date Recorded Male 06/27/2021 1:28 PM CDT documented as of this encounter Miscellaneous Notes Telephone Encounter - Billie Wilkinson M.D., M.B.A. - 02/25/2021 6:39 PM PANELBOARD TANK PUMPER Spoke with patient's . We will place an order for f/u office visit in 3 months. She has no immediate concerns regarding his incision at this time. We also discussed that he had a non-nerve sparing prostatectomy and its implications. She was appreciative of call and all questions answered. This mess age is being sent to the scheduling team to help schedule office visit. LBOARD TANK PUMPER Telephone Encounter - Danay Thayer - 02/25/2021 10:53 AM CST Pt Anahy called in asking about follow-up appts Per plan : 3 month follow-up with PSA and office visit with Dr. Gaspar Ther are no orders placed Best # to reach Anahy [phone] Thank you LBOARD TANK PUMPER Telephone Encounter - Yonny Mitchell - 02/21/2021 11:20 AM CST Patient of Dr. Oswald in [place]. Prostatectomy done with Dr. Gaspar on 01/30. Patient's called to see if there would be a follow-up appointment with Dr. Gaspar to see how his incision is healing at some point. She wants to make sure that somebody is following up for Cory to ensure it is healing properly. Additionally, she wanted to know if nerves were removed during patient's procedure on 01/30. Can someone from the team reach out to answer the medical question she has? And if there needs to marley followup with us, please place necessary ordser and we will be sure to get it scheduled for Cory. Thanks! LBOARD TANK PUMPER documented in this encounter Plan of Treatment Upcoming Encounters Date Type Specialty Care Team Description 12/23/2021 Appointment Radiation Oncology Low George M.D. [address] [place], [place] [phone] (Wo rk) documented as of this encounter Visit Diagnoses Not on filedocumented in this encounter Care Teams Charge Weigher Relationship Specialty Start Date End Date Elsewhere, Pcp PCP - General Family Medicine 01/30/21 documented as of this encounter
--- OUTSIDE RECORDS SUMMARY | 2021-12-18 16:01 | XMS_ITS | Encounter Summary ---
:1950 Author Organization [facility] Address [address] [place] [address] Care Team Providers Name Role Phone Unavailable Primary Care Provider Unavailable Encounter Details Date Type Department Care Team Description 08/30/2020 Ancillary Procedure Department of Urology Social History Tobacco Use Types Packs/Day Years Used Date Smoking Tobacco: Former Smokeless Tobacco: Never Alcohol Habits Answer Date Recorded How often [...] 06/27/2021 relatives? How often do you attend taoist or restorationism 1 to 4 times per year 06/27/2021 services? Do you belong to any clubs or organizations such No 06/27/2021 as taoist groups, unions, fraternal or athletic groups, or [...] or slept in a mcc (including now)? Sex Assigned at Date Recorded Male 06/27/2021 1:28 PM CDT documented as of this encounter Plan of Treatment Upcoming Encounters Date Type Specialty Care Team Description 12/23/2021 Appointment Radiation Oncology Low George M.D. [address] [place], [place] [phone] (Wo rk) documented as of this encounter Procedures Procedure Name Priority Date/Time Associated Diagnosis Comme nts UROLOGY IMAGE EXAM Routine 08/30/2020 2:29 PM Res ults for this CDT procedure are i n the results section. documented in this encounter Results Non-Radiology Image-Urology Image Exam (08/30/2020 2:29 PM CDT) Specimen (Source) Anatomical Collection Method Collection Time Re ceived Time Location / / Volume Laterality 08/30/2020 4:55 PM CDT Narrative [facility] - 08/30/2020 2:29 PM CDT This order has been created and auto-finalized to support the import of images acquired without order. The clini juan c documentation to support these images can be found on the encounter ankit t produced images. Provider Not In System IMG NON RAD IMAGING PROCEDUR ES Performing Organization Address City/State/ZIP Code Phon e Number [facility] NA documented in this encounter Visit Diagnoses Not on filedocumented in this encounter
--- OUTSIDE RECORDS SUMMARY | 2021-12-18 16:01 | XMS_ITS | Encounter Summary ---
:1950 Author Organization [facility] Address [address] [place] [address] Care Team Providers Name Role Phone Unavailable Primary Care Provider Unavailable Reason for Visit Reason Comments Biopsy Prostate Outpatient (Routine) - Closed Specialty Diagnoses / Procedures Referred By Contact Refer red To Contact Diagnoses Elevated Prostate-Specific Antigen Oseas Oswald M.D. [facility] Procedures URO Miscellaneous procedure [address] [place] [address] Referral ID Status Reason Start Date Expiration Date Visits Requ ested Visits Authorized [id number] Closed 08/10/2020 08/10/2021 1 1 Encounter Details Date Type Department Care Team Description 08/30/2020 Procedure visit Department of Urology Oseas Oswald Elevated in Osmin Garcia Prostate-Specific [place] [address] [place] [address] Antigen [address] [place] [address] ROBSON GARCIA [phone] Social History Tobacco Use Types Packs/Day Years [...] 06/27/2021 relatives? How often do you attend jewish or yazdanism 1 to 4 times per year 06/27/2021 services? Do you belong to any clubs or organizations such No 06/27/2021 as jewish groups, unions, fraternal or athletic groups, or [...] or slept in a residential (including now)? Sex Assigned at Date Recorded Male 06/27/2021 1:28 PM CDT documented as of this encounter Last Filed Vital Signs Vital Sign Reading Time Taken Comments Blood Pressure - - Pulse 58 08/30/2020 1:53 PM CDT Temperature 36.6 ??C (97.9 ??F) 08/30/2020 1:53 PM CDT Respiratory Rate - - Oxygen Saturation 98% 08/30/2020 1:53 PM CDT Inhaled Oxygen Concentration - - Weight - - Height - - Body Mass Index - - documented in this encounter Procedure Notes Oseas Oswald M.D. - 08/30/2020 2:00 PM CDT CHIEF COMPLAINT/REASON FOR VISIT Transrectal ultrasound and biopsy of the prostate (CPT 74285) Ultrasound guidance for transrectal prostate biopsy (CPT 52963) Transrectal prostate biopsy (CPT 49281) Peripheral Nerve Block (CPT 71038) INDICATION: Elevated prostate specific antigen of 5.3 Suspicious area identified on MRI, left peripheral zone, posterior lateral at the apex The patient was appropriately identified with at least two separate identifiers and the correct procedure was confirmed. PROCEDURE: After obtaining informed consent, biplanar transrectal ultrasonography was performed witha Bruel-Kjaer scanner. The patient did receive preoperative ciprofloxacin one to two hours prior to the procedure and benefitted from a Fleet's enema. A rectal probe was inserted in an atraumatic fashion. Serial, sagittal and transverse images of the prostate were obtained. 10 mL of 1% plain lidocainewas used to perform a prostatic nerve block by injecting the apices of the prostate bilaterally. Using a Biopty gun 12 core biopsies were obtained in a modified sextant pattern. One biopsy was obtained from each the right and left medial and lateral apex. One biopsy was obtained from each the lateral and medial aspect of the right and left base of the prostate. One biopsy obtained from each the medial and lateral aspect of the right and left mid section of the prostate. An additional 3 cores are obtained from the left apex and sent as a separate specimen. FINDINGS: Maximal height of prostate: 39.4 millimeters Maximal width of prostate: 56.8 millimeters Maximal length of prostate: 74.6 millimeters Prostate volume is calculated to be 87.3 cubic centimeters PSA density level: 0.06 (upper limits of normal 0.15) Seminal vesicles: Normal Ejaculatory ducts: Normal Prostatic capsule: Intact, no distortion Surgical capsule: Not well defined Peripheral zone: hypoechoic lesions is identified at the left apex, extends slightly on the right Transitional zone: Normal COMMENTS: Multiple images are saved in Qreads. The procedure was well tolerated. COMPLICATIONS: None. IMPRESSION/REPORT/PLAN 1. Elevated PSA, prostate tumor of uncertain etiology. 2. Abnormal ultrasound. The patient was observed for 10 to 15 minutes and discharged in satisfactory condition. The usual post-biopsy instructions were reviewed with him. He will call if he develops a fever, excessive bleeding or difficulty voiding. He will return to the clinic in approximately one week to review his biopsy results. He is to continue taking ciprofloxacin 500 milligrams twice daily for a total of five more doses. Note: A negative report or biopsy does not absolutely rule out the presence of prostate cancer. Ultrasound can only determine variations in the tissue texture or density, and cannot diagnose prostate cancer per se. Sampling errors can also occur. Therefore, followup and clinical correlation are essential. Electronically signed by: Oseas Oswald M.D. 08/30/20 2:19 PM CDT documented in this encounter Plan of Treatment Upcoming Encounters Date Type Specialty Care Team Description 12/23/2021 Appointment Radiation Oncology Low George M.D. [address] [place], [place] [phone] (Wo rk) documented as of this encounter Procedures Procedure Name Priority Date/Time Associated Diagnosis Comme nts SURGICAL PATHOLOGY Routine 08/30/2020 2:37 PM Elevated Res ults for this CDT Prostate-Specific procedure are in Antigen the results section. documented in this encounter Results Surgical Pathology (08/30/2020 2:37 PM CDT) Component Value Ref Test Analysis Performed Pathologis t Range Method Time At Signature 09/04/2020 MKTO 2:01 PM CDT Report Corrine [place]ton MD 09/04/2020 MKTO electronically Seen in consultation with: ??Char Olson M.D. 2:01 PM signed by CDT Specimen A. ??Prostate needle biopsy right, 6 cores 09/04/2020 MKTO Received B. ??Prostate needle biopsy left, 6 cores 2:01 PM C. ??Prostate needle biopsy left apex, suspicious (MRI CDT based) area, 3 cores Clinical History Elevated PSA 09/04/2020 MKTO 2:01 PM CDT Gross A: ??Submitted as right prostate. Consists of multiple fin e 09/04/2020 MKTO Description cores of tissue to 1 cm in aggregate diameter. ESB, A. 2:01 PM CDT B: ??Submitted as left prostate. Consists of fine cores of tissue to 1 cm in greatest length. ESB, B. C: ??Submitted as left apex. Consists of fine cores of tissue to 6 mm in greatest length. ESB, C. ?? ddg/nm Microscopic Controls reviewed; 09/04/2020 MKTO Description results acceptable. 2:01 PM CDT Interpretation FINAL DIAGNOSIS 09/04/2020 MKTO 2:01 PM A. Right prostate core biopsies: ??Benign prostate tissue. CDT B. 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 COMMENT : ??No basal cells are seen in the area of adenocarcinoma on cytokeratin 5/14 and p63 immunohistochemical stains supporting the diagnosis. C. Left apex prostate core biopsies: ??Prostate adenocarcinoma, Valencia grade 3 + 4 (grade group 2), 2 mm in greatest linear dimension involving 2 of 4 cores and involving less than 5% of the submitted tissue. COMMENT : ??No basal cells are seen in the areas of adenocarcinoma on cytokeratin 5/14 and p63 immunohistochemical stains supporting the diagnosis. MCSS-I Specimen Anatomical Collection Method Collection Time Receive d Time (Source) Location / / Volume Laterality Varies 08/30/2020 2:37 PM 8:08 CDT AM CDT Narrative This result has an attachment that is no t available. Oseas Oswald M.D. LAB SURG PATH ORDERABLES Performing Organization Address City/State/ZIP Code Phon e Number [facility]- [address] [place] [id number] [place] [address] [place] [address] System in [address] documented in this encounter Visit Diagnoses Diagnosis Elevated Prostate-Specific Antigen documented in this encounter
--- OUTSIDE RECORDS SUMMARY | 2021-12-18 16:01 | XMS_ITS | Encounter Summary ---
:1950 Author Organization [facility] Address [address] [place] [address] Care Team Providers Name Role Phone Elsewhere, Pcp Primary Care Provider Unavailable Reason for Referral Outpatient (Routine) - Closed Specialty Diagnoses / Procedures Referred By Contact Refer red To Contact Diagnoses Primary Malignant Neoplasm Of Prostate (HCC) Silvia Eng M.D. [facility] Procedures URO Urethral cath removal & voiding trial (UCO/VT) [address] [place] [address] Referral ID Status Reason Start Date Expiration Date Visits Requ ested Visits Authorized [id number] Closed 01/31/2021 01/31/2022 1 1 US ADMINISTRATOR Encounter Details Date Type Department Care Team Description 01/30/2021 - Hospital Encounter [facility] Lenny Gaspar, Primary Malignant 01/31/2021 Trav Coates M.D. Neoplasm Of Prostate [facility] [address] [place] [address] (HCC) (Primary Dx) Building, [place], [place] Floor [phone] [address] [facility] [phone] [place], [place] (Work) [phone] Social History Tobacco Use Types Packs/Day Years [...] 06/27/2021 relatives? How often do you attend holiness or catholic 1 to 4 times per year 06/27/2021 services? Do you belong to any clubs or organizations such No 06/27/2021 as holiness groups, unions, fraternal or athletic groups, or [...] Sign Reading Time Taken Comments Blood Pressure 130/65 01/31/2021 12:30 PM CAMPUS ADMINISTRATOR Pulse 72 01/31/2021 12:30 PM CAMPUS ADMINISTRATOR Temperature 37.1 ??C (98.8 ??F) 01/31/2021 12:30 PM CAMPUS ADMINISTRATOR Respiratory Rate 15 01/31/2021 12:30 PM CAMPUS ADMINISTRATOR Oxygen Saturation 93% 01/31/2021 12:30 PM CAMPUS ADMINISTRATOR Inhaled Oxygen Concentration - - Weight 84.6 kg (186 lb 8.2 oz) 01/30/2021 8:02 PM CAMPUS ADMINISTRATOR Height 169 cm (5' 6.54) 01/30/2021 11:48 AM CAMPUS ADMINISTRATOR Body Mass Index 29.62 01/30/2021 11:48 AM CAMPUS ADMINISTRATOR documented in this encounter Discharge Summaries Billie Wilkinson M.D., M.B.A. - 01/31/2021 11:46 AM CST DISCHARGE SUMMARY BRIEF OVERVIEW Hospital: [facility] Discharge Provider: Lenny Gaspar M.D. Primary Team: [facility] Urology Surgery - Hubert Primary Care [...] ROBOTIC-ASSISTED DISSECTION LYMPH NODE, PELVIC.Lenny Gaspar M.D. [facility] ROEI OR DISCHARGE DISPOSITION Home or Self [...] Scheduled Appointments 02/11/2021 8:00 AM URO NURSE MARIA LUISA Urology For appointment details refer to your [...] were provided to the patient and caregiver(s). US ADMINISTRATOR documented in this encounter Discharge Instructions Discharge InstructionsAnnette Rogers - 01/31/2021 6:52 AM CST You were discharged from the [facility] Urology Surgery - Gaspar Service. Please identify this service name if you call with questions after hospitalization. US ADMINISTRATOR AttachmentsThe following attachments cannot be sent through Care Everywhere. Acetaminophen (By mouth) (Singaporean)Diazepam (By mouth) (Singaporean)Laxative, Stimulant (By mouth) (Singaporean)Bacitracin/Neomycin/Polymyxin B (On the skin) (Singaporean)Tramadol (By mouth) (Singaporean)Trospium (By mouth) (Singaporean)documented in this encounter Medications at Time of [...] as needed (bladder spasms uncontrolled with Trospium). [id number] You may experience 0 04/202002/11/2021 ymyxin (NEOSPORIN) 3.5 pain at the tip of mg-400 unit-5,000 the penis while the unit/gram ointment catheter is indwelling. This may be improved by application of mfog-ehe-qyyhzzk antibiotic ointment as needed and may be [...] -- Take 1 tablet by mouth daily. US ADMINISTRATOR documented in this encounter H&P Notes Felipe Walker M.D. - 01/30/2021 12:35 PM CST INTERVAL HISTORY AND PHYSICAL Interval History & Physical completed - see Anesthesia Preevalaution. Felipe Walker M.D. US ADMINISTRATOR Source Note - Kalyn Mendenhall APRN, C.N.P., M.S.N. - 01/21/2021 11:00 AM CAMPUS ADMINISTRATOR SUBJECTIVE CHIEF COMPLAINT/REASON FOR CONSULT Chief Complaint Patient presents with ??? Pre-op Exam Cory Barton is a 70 y.o. y.o. male who presents today for a pre- operative consultation at the request of Dr Gaspar who plans on performing ROBOTIC-ASSISTED RADICAL PROSTATECTOMY and ROBOTIC-ASSISTED DISSECTION LYMPH NODE - PELVIC on the following date: 01/30/21 at [facility]. Based on information from the patient, the [...] 1. Hx ischemic heart disease: NO (Hx SD, Hx positive exercise test, current complaint of [...] estimated risk of margarette-operative cardiac , non-fatal SD, or non-fatal cardiac arrest: 0 Predictors (0.4% risk of major cardiac event) Marion ABCDEFGHINO Checklist: A (Allergies): NO B (Bleeding [...] as always tobacco cessation. Kalyn Mendenhall APRN, Magnus[employer]ova, M.S.N. US ADMINISTRATOR documented in this encounter Nursing Notes Lien Medina R.N., MagnusM.S.R.N. - 01/31/2021 2:17 PM CST Mr. Barton discharged home self care with his and daughter. He used wheelchair escort when leaving the unit. US ADMINISTRATOR Lien Medina R.N., Rima.M.S.R.N. - 01/31/2021 2:15 PM CST Shift Goals: [...] discharge needs identified Outcome: Adequate for Discharge US ADMINISTRATOR documented in this encounter OR Notes Op Note - Lenny Gaspar M.D. - 01/30/2021 2:05 PM CST Pre-op Diagnosis Primary Malignant Neoplasm Of Prostate (HCC) Post-op Diagnosis Primary Malignant Neoplasm Of Prostate (HCC) A first assistant manager actively participated and was necessary for one [...] a stable condition. ? Lenny Gaspar M.D. US ADMINISTRATOR documented in this encounter Miscellaneous Notes Hospital Course - Billie Wilkinson M.D., M.B.A. - 01/30/2021 11:11 AM CAMPUS ADMINISTRATOR PROCEDURE: Patient underwent RARP, lymph node dissection [...] gross deficits DISCHARGE LABS: H.7 Cr: 1.55 US ADMINISTRATOR documented in this encounter Plan of Treatment Upcoming Encounters Date Type Specialty Care Team Description 12/23/2021 Appointment Radiation Oncology Low George M.D. [address] [place] [address] [phone] (Wo rk) Scheduled Orders Name Type Priority Associated Diagnoses Order S chedule URO Urethral cath Procedure Routine Primary Malignant Expec humble: removal & voiding Neoplasm Of Prostate , Expires: trial (UCO/VT) (HCC) 04/30/2022 documented as of this encounter Procedures Procedure Name Priority Date/Time Associated Comments Diagnosis CBC WITHOUT Routine 01/31/2021 12:36 Results for this DIFFERENTIAL, B AM CAMPUS ADMINISTRATOR procedure ar e in the results section. BASIC METABOLIC PANEL, Routine 01/31/2021 12:36 R esults for this S/P AM CAMPUS ADMINISTRATOR procedure are i n the results section. ADULT OXYGEN THERAPY Routine 01/30/2021 9:38 PM CAMPUS ADMINISTRATOR ADULT OXYGEN THERAPY Routine 01/30/2021 7:34 PM CAMPUS ADMINISTRATOR ADULT OXYGEN THERAPY Routine 01/30/2021 7:34 PM CAMPUS ADMINISTRATOR SURGICAL PATHOLOGY, Routine 01/30/2021 6:25 PM Primary Maligna nt Results for this [facility] CAMPUS ADMINISTRATOR Neoplasm Of procedure are i n Prostate (HCC) the results section. ROBOTIC-ASSISTED 01/30/2021 12:48 Primary Malignant DISSECTION LYMPH NODE PM CAMPUS ADMINISTRATOR Neoplasm Of - PELVIC Prostate (HCC) ROBOTIC-ASSISTED 01/30/2021 12:48 Primary Malignant RADICAL PROSTATECTOMY PM CAMPUS ADMINISTRATOR Neoplasm Of Prostate (HCC) documented in this encounter Results (ABNORMAL) CBC without Differential (01/31/2021 12:36 AM CAMPUS ADMINISTRATOR) [facility] gist Method Time Signature Hemoglobin 13.7 13.2 - 01/31/2021 DTL 16.6 g/dL 1:22 AM CAMPUS ADMINISTRATOR Hematocrit 40.6 38.3 - 01/31/2021 DTL 48.6 % 1:22 AM CAMPUS ADMINISTRATOR Erythrocytes 4.43 4.35 - 01/31/2021 DTL 5.65 1:22 AM CAMPUS ADMINISTRATOR x10(12)/L MCV 91.6 78.2 - 01/31/2021 DTL 97.9 fL 1:22 AM CAMPUS ADMINISTRATOR RBC Distrib Width 12.4 11.8 - 01/31/2021 DTL 14.5 % 1:22 AM CAMPUS ADMINISTRATOR Platelet Count 181 135 - 317 01/31/2021 DTL x10(9)/L 1:22 AM CAMPUS ADMINISTRATOR Leukocytes 14.8 (H) 3.4 - 9.6 01/31/2021 DTL x10(9)/L 1:22 AM CAMPUS ADMINISTRATOR Specimen Anatomical Collection Method Collection Time Receive d Time (Source) Location / / Volume Laterality Blood (Blood, 01/31/2021 12:36 01/31/2021 1:16 Venous) AM CAMPUS ADMINISTRATOR AM CAMPUS ADMINISTRATOR Billie Wilkinson M.D., M.B.A. LAB BLOOD ADD-ON Performing Organization Address City/State/ZIP Code Phon e Number [facility] - [address] [place], [place] [address] [facility] [place] [address] [facility] [address] (ABNORMAL) Basic Metabolic Panel (01/31/2021 12:36 AM CAMPUS ADMINISTRATOR) Analysis Performed At Patho logist Time Signature Potassium, S 3.2 (L) 3.6 - 5.2 01/31/2021 DTL mmol/L 1:39 AM CAMPUS ADMINISTRATOR Sodium, S 144 135 - 145 01/31/2021 DTL mmol/L 1:39 AM CAMPUS ADMINISTRATOR Chloride, S 102 98 - 107 01/31/2021 DTL mmol/L 1:39 AM CAMPUS ADMINISTRATOR Bicarbonate, S 25 22 - 29 01/31/2021 DTL mmol/L 1:39 AM CAMPUS ADMINISTRATOR Anion Gap 17 (H) 7 - 15 01/31/2021 DTL 1:39 AM CAMPUS ADMINISTRATOR BUN (Blood Urea 28 (H) 8 - 24 01/31/2021 DTL Nitrogen), S mg/dL 1:39 AM CAMPUS ADMINISTRATOR Creatinine 1.55 (H) 0.74 - 01/31/2021 DTL 1.35 mg/dL 1:39 AM CAMPUS ADMINISTRATOR eGFR-Non 44 (L) >=60 01/31/2021 DTL Black/ mL/min/BSA 1:39 AM CAMPUS ADMINISTRATOR [place]an Comment: ----ADDITIONAL INFORMATION---- Estimated GFR calculated using the 2009 CKD_EPI creatinine equation. eGFR-Black/ 51 (L) >=60 mL/min/BSA 2020 1:39 AM CAMPUS ADMINISTRATOR DTL Comment: ----ADDITIONAL INFORMATION---- Estimated GFR calculated using the 2009 CKD_EPI creatinine equation. Calcium, Total, S 8.6 (L) 8.8 - 10.2 mg/dL 01/31/2021 1:39 AM CAMPUS ADMINISTRATOR DTL Glucose, S 206 (H) 70 - 140 mg/dL 01/31/2021 1:39 AM CAMPUS ADMINISTRATOR D TL Specimen Anatomical Collection Method Collection Time Receive d Time (Source) Location / / Volume Laterality Blood (Blood, 01/31/2021 12:36 01/31/2021 1:25 Venous) AM CAMPUS ADMINISTRATOR AM CAMPUS ADMINISTRATOR Billie Wilkinson M.D., M.B.A. LAB BLOOD ADD-ON Performing Organization Address City/State/ZIP Code Phon e Number [facility] - [address] [place], [place] [address] [facility] [place] [address] [facility] [address] Surgical Pathology, Frozen Lab (01/30/2021 6:25 PM CAMPUS ADMINISTRATOR) Component Value Ref Test Analysis Performed Pathologis t Range Method Time At Signature 02/01/2021 M[facility] 3:30 PM CAMPUS ADMINISTRATOR Participated in Stacey Erwin, 02/01/2021 M[facility] the M.D. -Pathology 3:30 PM Interpretation Fellow CAMPUS ADMINISTRATOR Report Annelise Jeff M.D., Ph.D. [phone] 02/02/20 21 METH electronically 3:30 PM signed by CAMPUS ADMINISTRATOR I verify that I have examined all relevant slides/materials for the specimen(s) and rendered or confirmed the diagnosis. Gross Description A. ??Received fresh and placed in formalin labele d 02/01/2021 METH bilateral 3:30 PM pelvic lymph nodes is a 3.6 x 3.5 x 1.6 cm aggregate of CAMPUS ADMINISTRATOR adipose and lymphatic tissue. ??Multiple (6) potential [...] the left mid to inferior posterior prostate. ??Shell Mold Bonder tissue submitted for permanent sections only. ??Grossed by MIC. Block Summary A Bilateral pelvic lymph nodes 02/01 METH A1 Bilateral pelvic lymph nodes 1of2(A1) 3:30 PM A2 Bilateral pelvic lymph nodes 2of2(A1) CAMPUS ADMINISTRATOR A3 Bilateral pelvic lymph nodes 1of2(A2) A4 [...] A. ??Lymph nodes, bilateral pelvic, dissection: ??Multiple CAMPUS ADMINISTRATOR (6) lymph nodes are negative for metastatic carcinoma. B. ??Prostate gland, radical prostatectomy: ??Adenocarcinoma (Valencia pattern 4+5, grade group 5) is identified [...] Seen in consultation with: Wilner Ren M.D. [phone] SYNOPTIC REPORT: ??Prostate Procedure: ??Radical prostatectomy Prostate Size: 108 gram, 6.2 (S-I) x 6.4 (A-P) x 6.6 (R-L) cm Histologic Type: ??Acinar adenocarcinoma Histologic Grade ?? Grade Group and Valencia Score ?Grade Group 3 ([place]fax Score 4+5=9) ?Minor Tertiary Pattern 5 (less than 5%): ??Not applicable ?Percentage of Pattern 4 in Colfax score 7: ??Not applicable ?? Intraductal Carcinoma [...] Volume Laterality Tissue (Prostate) 01/30/2021 7:16 PM CAMPUS ADMINISTRATOR Tissue (Lymph 01/30/2021 6:25 PM Node) CAMPUS ADMINISTRATOR Narrative This result has an attachment that is no t available. Lenny Gaspar M.D. LAB SURG PATH ORDERABLES Performing Organization Address City/State/ZIP Code Phon e Number [facility] - [address] [place], [place] [address] [facility] [place] [address] [facility] [address] documented in this [...] 8:21 PM 1,000 mg 400 mL/hr mg CAMPUS ADMINISTRATOR 1,000 mg, intravenous, at 400 mL/hr, Administer [...] 1,000 mg (TYLENOL) Given 01/31/2021 1:41 PM CAMPUS ADMINISTRATOR 1,000 mg 1,000 mg, oral, Every 6 hours, First dose on Jennifer 01/31/21 at 0200 Given 01/31/2021 7:36 AM CAMPUS ADMINISTRATOR 1,000 mg Given 01/31/2021 2:07 AM CAMPUS ADMINISTRATOR 1,000 mg acetaminophen tablet 1,000 mg (TYLENOL) Given 01/30/2021 1:04 PM CAMPUS ADMINISTRATOR 1,000 mg 1,000 mg, oral, Once, On Thu01/30/21 at 1300, For 1 dose, Pre-Op, PreOp give in preprocedural area. amLODIPine tablet 10 mg (NORVASC) Given 01/31/2021 8:54 AM CAMPUS ADMINISTRATOR 10 mg 10 mg, oral, Daily, First dose on Jennifer 01/31/21 at 0900 bacitracin zinc 500 unit/gram ointment Given 01/31/2021 8:54 AM CAMPUS ADMINISTRATOR 1 packet packet 1 packet 1 packet (1 application), topical, 3 times daily, First dose on Thu01/30/21 at 2145, Apply to tip of penis. Given 01/30/2021 10:50 PM CAMPUS ADMINISTRATOR 1 packet caffeine-sodium benzoate injection 250 m g Given 01/30/2021 8:19 PM CAMPUS ADMINISTRATOR 250 mg 250 mg, intravenous, Once, On Thu01/30/21 at 2015, For 1 dose, PACU (only) ceFAZolin in dextrose (iso-os) IVPB 2 New Bag 01/31/2021 7:36 AM CAMPUS ADMINISTRATOR 2 g 200 mL/hr g (ANCEF) 2 g, intravenous, at 200 mL/hr, Administer over 30 Minutes, Every 8 hours, First dose on Jennifer 01/31/21 at 0000, For 2 doses, Start within 8 hours of last IV dose., Drug Monitoring Program: Pharmacist to adjust medication dosing based on indication and drug clearance factors., Indications: Prophylaxis, surgical New Bag 01/31/2021 12:11 AM CAMPUS ADMINISTRATOR 2 g 200 mL/hr celecoxib capsule 200 mg (CeleBREX) Given 01/30/2021 1:04 PM CAMPUS ADMINISTRATOR 200 mg 200 mg, oral, Once, On [...] rd. heparin (porcine) Given 01/31/2021 6:16 AM CAMPUS ADMINISTRATOR 5,000 Units Right Upper Arm injection 5,000 Units (Back) 5,000 Units, subcutaneous, Every 8 hours scheduled, First dose on Thu01/30/21 at 2200 Given 01/30/2021 10:49 PM CAMPUS ADMINISTRATOR 5,000 Units Righ t Upper Arm (Back) lactated ringers New Bag 01/31/2021 6:15 AM CAMPUS ADMINISTRATOR 125 mL/hr 125 mL/hr 125 mL/hr, intravenous, Continuous, Starting on Thu01/30/21 at 2145, Continue IV fluids from operating room at 125 ml/hour New Bag 01/30/2021 9:40 PM CAMPUS ADMINISTRATOR 125 mL/hr 125 mL/hr lactated ringers Continued from OR 01/30/2021 7:37 PM CAMPUS ADMINISTRATOR 20 mL/hr 20 mL/hr 20 mL/hr, intravenous, Continuous, Starting on Thu01/30/21 at 1845, PACU & Post-Op metoprolol tablet 50 mg (LOPRESSOR) Given 01/31/2021 8:54 AM CAMPUS ADMINISTRATOR 50 mg 50 mg, oral, 2 times daily, First dose on Thu01/30/21 at 2145 Given 01/30/2021 10:49 PM CAMPUS ADMINISTRATOR 50 mg NaCl 0.9% infusion 10-250 mL/hr, [...] mg (DITROPAN- XL) Given 01/30/2021 1:04 PM CAMPUS ADMINISTRATOR 10 mg 10 mg, oral, Once, On Thu01/30/21 at 1300, For 1 dose, Pre-Op, PreOp give in preprocedural area. Swallow whole. Do NOT crush, chew, or split tablet. oxyCODONE 12 hr tablet 10 mg (OxyCONTIN) Given 01/30/2021 1:04 PM CAMPUS ADMINISTRATOR 10 mg 10 mg, oral, Once, On Thu01/30/21 at 1300, For 1 dose, Pre-Op, PreOp give in preprocedural area. Swallow whole. Do NOT crush, chew, or split tablet. potassium chloride ER tablet 40 mEq Given 01/31/2021 7:18 AM CAMPUS ADMINISTRATOR 40 mEq (KLORCON/K-TAB) 40 mEq, oral, Once, On Jennifer 01/31/21 at 0645, For 1 dose, For K 3-3.4 mEq/L - give total of 40 mEq Swallow whole. Do NOT crush, chew, or split tablet., Monitor the following for replacement: Potassium, Replace Potassium per: Standard Schedule sennosides-docusate sodium 8.6-50 mg per Given 01/31/2021 8:54 A M CAMPUS ADMINISTRATOR 1 tablet tablet 1 tablet (SENOKOT-S) 1 tablet, oral, 2 times daily, First dose on Thu01/30/21 at 2145, Do not give if patient has diarrhea. Given 01/30/2021 10:49 PM CAMPUS ADMINISTRATOR 1 tablet sodium chloride 0.9 % injection [...] injection 3 mL Given 01/31/2021 8:54 AM CAMPUS ADMINISTRATOR 3 mL 3 mL, intravenous, Every 12 hours scheduled, First dose on Jennifer 01/31/21 at 0900, Peripheral Intravenous Catheter and Rapid Infusion Catheter: When no infusion to maintain patency. triamterene-hydroCHLOROthiazide 37.5-25 mg Given 01/31 8:54 AM CAMPUS ADMINISTRATOR 1 tablet per tablet 1 tablet (MAXZIDE-25) 1 tablet, oral, Daily, First dose on Thu01/31/21 at 0900 trospium tablet 20 mg (SANCTURA) Given 01/31/2021 6:16 AM CAMPUS ADMINISTRATOR 20 mg 20 mg, oral, 2 times daily before breakfast and dinner, First dose on Thu01/31/21 at 0700, trospium was interchanged for trospium XR, Restriction Criteria (Pharmacy will review and approve if criteria met): Use in patients 65 years of age or older documented in this encounter Active and Recently Administered Medications Times are shown in CAMPUS ADMINISTRATOR. Scheduled Medication Order 01/29/2021 01/30/2021 01/31/2021 acetaminophen tablet 1,000 mg (TYLENOL) 0207 (Given - Provider: Cristina Horner R.N.)0736 (Given - Provider: Funmi Sarkar R.N.)1341 [...] (NORVASC) 0854 (Given - Provider: Lachelle Taylor R.NAlvarez) 10 mg, oral, Daily, First dose on Thu01/31/21 at 0900 bacitracin zinc 500 unit/gram ointment packet 1 packet 2249 (Given - Provider: Rubia Hagan R.N.) [...] RAaliyah)0736 (New Bag - Provider: Funmi Sarkar R.N.) 2 g, intravenous, at 200 mL/hr, Administ er over 30 Minutes, Every 8 hours, First dose on Jennifer 01/31/21 at 0000, For 2 doses, Start within 8 hours of last IV dose., Drug Monitoring Program: Pharmacist to [facility] medication dosing based on indicat ion and [...] administration g uidelines. , [facility] medication dosing based on indication and drug clearance factors., Indications: Prophylaxis, surgical celecoxib capsule 200 mg (CeleBREX) (COMPLETED) 1304 (Given - Provider: Lisa Tran RAlvarezNAlvarez) 200 mg, oral, Once, On Thu01/30/21 at 1300, For 1 dose, Pre-Op heparin (porcine) injection 5,000 Units 0349 (Given - Provider: Rubia Hagan R.N.) 0616 (Given - Provider: Cristina Horner RAaliyah)1400 (Due) 5,000 Units, subcutaneous, Every 8 hours scheduled, First dose on Thu01/30/21 at 2200 heparin (porcine) injection 5,000 Units (COMPLETED) 1334 (Given - Provider: Liz Ramirez R.N.) 5,000 Units, subcutaneous, Once, On Thu01/30/21 at [...] mg per tablet 1 tablet (SE NOKOT-S) 2176 (Given - Provider: Rubia Hagan R.N.) 0854 [...] hours PRN, itching, Starting on Thu01/30/21 at 8 lactated Ringer's bolus 500 mL 500 mL, [...] PRN, constipation, Sta rting on Thu01/30/21 at 2138, Ordered sequence of administration: polyethylene glycol, then [...] Starting on Thu01/30/21 at 2138, Prior to and following infusion and between multiple consecutive infusions. traMADoL tablet 50 mg (ULTRAM) 50 mg, oral, Every 6 hours PRN, moderate pain or score 4-6 of 10, Starting on Thu01/30/21 at 213 documented in this encounter Care Teams Cnp Relationship Specialty Start Date End Date Elsewhere, Pcp PCP - General Family Medicine 01/30/21 documented as of this encounter
--- OUTSIDE RECORDS SUMMARY | 2021-12-18 16:01 | XMS_ITS | Encounter Summary ---
:1950 Author Organization [facility] Address [address] [place] [id number] Care Team Providers Name Role Phone Unavailable Primary Care Provider Unavailable Reason for Visit Outpatient (Routine) - Closed Specialty Diagnoses / Procedures Referred By Contact Refer red To Contact Urology Diagnoses Primary Malignant Neoplasm Of Prostate (HCC) Oseas Oswald M.D. [place] [address] [phone] Referral ID Status Reason Start Date Expiration Date Visits Requ ested Visits Authorized [id number] Closed 10/18/2020 10/18/2021 1 1 Encounter Details Date Type Department Care Team Description 11/28/2020 Comprehensive Visit Department of Lenny Gaspar Prima ry Malignant Neoplasm Of Prostate (HCC) (Primary Dx); Urology in M.D. Dysfunction Erectile; [place], [address] [place] [address] Hypertension Essential Primary [place], [place] [address] [place] [phone] [place], [place] [phone] (Work) [phone] Social History Tobacco Use Types Packs/Day Years Used Date Smoking Tobacco: Former Cigarettes 0 0 Smokeless Tobacco: Never Alcohol Use Standard Drinks/Week [...] How often do you attend [employer] or yarsanism 1 to 4 times per [...] PM CDT documented as of this encounter H&P Notes Funmi Montano APRN, C.N.P. - 11/28/2020 10:30 AM CDT SUBJECTIVE REQUESTING PROVIDER Oseas Owsald M.D. REASON FOR CONSULT Adenocarcinoma of the prostate HISTORY OF PRESENT ILLNESS Mr. Barton is a very pleasant 70-year-old gentleman who presents to Dr. Gaspar's clinic for 2nd opinion potential management of his newly diagnosed favorable intermediate risk prostate malignancy. Patient's urologic oncologic history is as follows: 1. Patient notes that his PSAs were in the 4 range. 2. spring PSA was 5.3 3. Patient met with Dr. Chan is a and was noted to have an abnormal digital rectal exam with a nodule located the left apex. He proceeded with an MRI of the prostate. 4. August 17, 2020 MRI of the prostate demonstrated a 79 g size gland with a PSA density of 0.07. Patient was noted to have a 2.2 cm PI-RADS 5 lesion at the left posterior lateral mid apical peripheral zone. There was noted bulging and irregularity involving the capsule on the left as well as concerningfindings for neurovascular bundle involvement on the left. There is no evidence of seminal vesicle involvement, pelvic lymphadenopathy or any bony pelvic lesions of concern. 5. August 30, 2020 patient had a prostate biopsy. The right prostate samples were benign. The left prostate samples demonstrated [place] 3 + 3 adenocarcinoma in 1/6 cores in less than 5% of the specimen. The targeted left apex samplings demonstrated [place] 3 + 4 adenocarcinoma in 2 of 4 cores in less than 5% of the specimen was involved. Patient has not visited with Radiation Oncology. He denies any prior history of radiation therapy. He does taking 81 mg aspirin but denies take any prescriptive blood thinning medications. He denies incontinence. He does have erectile dysfunction which is been present for 10 year history and has not treated this. He has frequency but relates this to his hydrochlorothiazide that he takes for hypertension as well as pushing fluids. He has nocturia times 2-5 depending on fluid intake priorto bedtime. He denies urgency or dysuria. He denies gross hematuria. He denies any stone events although was told years ago that he had a kidney stone. He denies any current flank or suprapubic pain. He denies fevers, chills, nausea, or vomiting. The following portions of the patient's history were reviewed and updated as appropriate: allergies,current medications, family history, medical history, social history, surgical history and problem list. Past Medical History: Diagnosis Date ??? Hypertension NOS ??? Polyp Colon [place] 3 + 4, clinical T2a adenocarcinoma the prostate with prebiopsy PSA 5.3 Past Surgical History: Procedure Laterality Date ??? GALLBLADDER SURGERY 2016 REVIEW OF SYSTEMS Genitourinary: Positive for frequent urination and erectile dysfunction. The following systems were negative: Constitutional, Skin, Eyes, ENT, CV, Respiratory, GI, Hematologic, Musculoskeletal, Neuro SOCIAL HISTORY Smoking: Quit 45 years ago. Patient notes that he smoked approximately 10 years and would smoke a couple packs per week. FAMILY HISTORY Patient's maternal grandfather passed from metastatic prostate cancer. Patient notes that his grandfather was diagnosed with prostate cancer and elected not to treat it. He denies any other family history of genitourinary malignancies OBJECTIVE PHYSICAL EXAM Constitutional: He is oriented to person, place, and time. He appears well- developed and well-nourished. HENT: Head: Normocephalic. Eyes: No scleral icterus. Pulmonary/Chest: Effort normal. Abdominal: Abdomen does not display distension. Musculoskeletal: He exhibits no tenderness. Neurological: He is alert and oriented to person, place, and time. Skin: No rash noted. Psychiatric: He has a normal mood and affect. His behavior is normal. Judgment and thought content normal. LABORATORY Spring 2020 PSA 5.3 IMAGING EXAM: MR PROSTATE WITHOUT AND WITH IV CONTRAST ?? CLINICAL HISTORY: Elevated PSA. Left apical nodule palpated on physical exam. Most Recent PSA 5.35 ng/mL. ?? COMPARISON: None. ?? PROSTATE: Volume: 79cc (PSA density 0.07) Exam quality: Good. ?? Peripheral zone: Approximately 22 x 13 x 15 mm T2 hypointense lesion in the left posterolateral mid-apical peripheral zone (series 4 images 20-24) has corresponding marked restricted diffusion (series 650 images 78-73, minimum ADC 469) and hyperenhancement (series 31,000 images 395-398). This lesion is suspicious for clinically significant prostate cancer (PIRADS 5). ?? Transition zone: Marked nodular hypertrophy without a definite suspicious lesion. ?? Staging: Broad capsular contact of the left peripheral zone lesion with capsular bulging and irregularity is worrisome for extracapsular extension and neurovascular bundle involvement. No seminal vesicle invasion. No enlarged pelvic lymph nodes. No suspicious bone lesions. ?? Additional findings: Renal cysts. Small fat-containing inguinal hernias. Mild bladder wall thickening. Colonic diverticulosis. ? IMPRESSION: Large lesion in the left mid-apical posterolateral peripheral zone is highly suspicious for clinically significant prostate cancer (PIRADS 5). Specimen Collected: 08/17/20 10:57 ASSESSMENT / PLAN #1 [place] 3 + 4, clinical clinical T2a adenocarcinoma the prostate with prebiopsy PSA 5.3 #2 Dysfunction Erectile #3 Hypertension Essential Primary It was my pleasure to meet Mr. Barton in conjunction with Dr. Gaspar. We discussed his diagnosis and prognosis in detail. I reiterated the [place] scoring system. We reviewed his electronic medical records. I reviewed with patient that his recent biopsy August 30, 2020 demonstrated a favorable intermedia te risk prostate malignancy. He did have MRI imaging of the prostate prior to biopsy which had noteda PI-RADS 5 lesion at the left posterior lateral mid apical peripheral zone. There was concerning findings for extracapsular extension and neurovascular bundle involvement on the left. There is no evidence of pelvic lymphadenopathy or any bony pelvic lesions of concern. We discussed his treatment options include active surveillance, radiation therapy, or surgical intervention. Given the findings on MRI imaging as well as intermediate risk disease we would recommend active treatment. We briefly discussed radiation therapy and the quality of life changes that occur with that. Patienthas not visited with a radiation oncologist to date and we did offer to send him for consultation ifhe has interest. We had a detailed discussion regarding the margarette and post operative education of a open and robotic radical prostatectomy. He was informed that the goals of surgery would be (1) oncological control (2)maintain his ability to control his urine and (3) to preserve erectile function. We discussed the quality of life changes that occur with surgical intervention that include urinary incontinence as wellas erectile dysfunction. The risks, benefits, and alternatives were discussed as well as the perioperative period with the patient which include infection, bleeding, damage to adjacent organs as well as risk of anesthesia which are but not limited to stroke, blood clots, myocardial infarction, or even . He was educated to cease any aspirin or NSAIDs 7-10 days prior to the procedure. I reviewed he would have an indwelling catheter for 7-10 days postoperatively. We discussed lifting restrictions which is nothing greater than 10 lb for 6 weeks. I reviewed hospitalization is 1-[address] Gaspar's supervisory note for full details on discussion and plan of care. After discussion with Dr. Gaspar he has elected to proceed with a robotic prostatectomy with pelvic lymphadenectomyDece2020. He will need a EKG, ZANA, CBC, BMP, INR, COVID PCR nasal swab prior to procedure. All questions were answered to his satisfaction and contact information was provided. Signed by: Funmi Montano APRN, C.N.P. 11/28/2020 11:21 AM CDT Lenny Gaspar M.D. - 11/28/2020 10:30 AM CDT Mr. Barton is a very pleasant 70-year-old gentleman who presents for discussion of management of his newly diagnosed favorable intermediate risk prostate malignancy. Mr. Barton's urologic oncologic history is as follows: ?? 1. Mr. Barton notes that his PSAs were in the 4 range. ?? 2. spring PSA was 5.3 ?? 3. Mr. Barton met with Dr. Dustin reyes and was noted to have an abnormal digital rectal exam witha nodule located the left apex. He proceeded with an MRI of the prostate. ?? 4. August 17, 2020 MRI of the prostate demonstrated a 79 g size gland with a PSA density of 0.07. Patient was noted to have a 2.2 cm PI-RADS 5 lesion at the left posterior lateral mid apical peripheral zone. There was noted bulging and irregularity involving the capsule on the left as well as concerningfindings for neurovascular bundle involvement on the left. There is no evidence of seminal vesicle involvement, pelvic lymphadenopathy or any bony pelvic lesions of concern. ?? 5. August 30, 2020 Mr. Barton had a prostate biopsy. The right prostate samples were benign. The left prostate samples demonstrated [place] 3 + 3 adenocarcinoma in 1/6 cores in less than 5% of the specimen. The targeted left apex samplings demonstrated [place] 3 + 4 adenocarcinoma in 2 of 4 cores in less than 5% of the specimen was involved. ?? He presents today for discussion of management options. He has urinary frequency related to intake of hydrochlorothiazide as well as drinking adequate fluids. He also has nocturia 2-5 times depending on fluid intake prior to bed. He has no urgency or incontinence. He has no history of gross hematuria or recurrent urinary tract infections. He does have erectile dysfunction which has been present for 10 years and not treated. ?? The following portions of the patient's history were reviewed and updated as appropriate: allergies,current medications, family history, medical history, social history, surgical history and problem list. Past Medical History: Diagnosis Date ??? Hypertension NOS ??? Polyp Colon Past Surgical History: Procedure Laterality Date ??? 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 His grandfather was diagnosed with prostate cancer and elected not to treat it. Review of Systems: Constitutional: No fever, fatigue, anorexia, night sweats. HEENT: No vision changes or abnormal changes in smell, no headaches. Resp: No shortness of breath or cough. Cardio: No chest pain, palpitations. GI: No abdominal pain, changes in bowel movement. : See HPI. MSK: No weakness, paresthesias, or joint pains. Neuro: No gait ataxia. Physical Exam General: No acute distress. HEENT: Anicteric. Normocephalic. Respiratory: Non-labored breathing. Abdomen: Soft. Nontender. Nondistended. Extremities: No rash or bruising. Neurologic: Gross motor activity intact. No ataxia. Skin: Intact. No bruising. Psych: Normal mood and affect. Answers questions appropriately. Assessment and Plan It was a pleasure to meet with Mr. Barton for discussion of management of his prostate cancer. Based on PSA and his pathology, he would fall into a intermediate risk group. His MRI demonstrates evidence of locoregional extension of the prostate cancer into the periprostatic soft tissue, including the region of the neurovascular bundle on the left. We reviewed options for management including surveillance, radiation, and surgery. The risks and benefits of these procedures were reviewed with the patient. Oncologic outcomes associated with procedures were also reviewed. Given his excellent functional status, lack of significant competing health risks, and intermediate-risk disease with radiographic concern for extraprostatic extension, I would recommend some form of active treatment. He would be an excellent candidate for robotic radical prostatectomy with bilateral pelvic lymph node dissection as we would achieve good cancer control as well as have good opportunityto preserve his functional status. Moreover, I reviewed that with some locally advanced disease states such as that which he may possess, multiple modalities of treatment inclusive of surgery, radiation, and hormone deprivation are often necessary to achieve durable cancer control. In this case, I would recommend surgery be sequenced first as in a large subset of patients, no additional therapy is needed, but in the event additional salvage therapies are needed, there is less detriment to functionaloutcomes with radiation administered following surgery compared to if surgery were to follow radiation. We discussed risks, benefits, and alternatives to robotic assisted radical prostatectomy with pelviclymphadenectomy. Risks discussed included but were not limited to bleeding, infection, damage to surrounding structures, anesthesia, postoperative erectile dysfunction and stress urinary incontinence. The perioperative course was also discussed which would involve a catheter in place for between 7-10 days depending on whether bladder neck reconstruction was necessary. With respect to the functional outcomes, I do expect him to have excellent return of urinary controlwhich can take upwards of 1 year but should start being seen within a few months. We discussed the importance of Kegel exercises. With respect to erectile function, we will be performing a non nerve-sparing procedure given concernfor extraprostatic extension on the left. The significance of this was reviewed - specifically that it was limit recovery of erectile function following surgery. He does have baseline dysfunction already. After discussion, he would like to proceed with surgery. I will list him for 01/30/2021 Prior to surgery we will obtain the followin01/28/2021: in [place] -Preoperative blood work in the form of CBC, BMP, PT, PTT -Pre-surgical COVID screening -ZANA He should hold his Aspirin 7 days prior ot the procedure. He has provided informed consent for the procedure. >60 minutes spent during consultation for [id number]-[id number] counseling as well as and review of records and imaging documented in this encounter Plan of Treatment Upcoming Encounters Date Type Specialty Care Team Description 12/23/2021 Appointment Radiation Oncology Low George M.D. [address] [place] [address] [phone] (Wo rk) documented as of this encounter Visit Diagnoses Diagnosis Primary Malignant Neoplasm Of Prostate ( HCC) - Primary Dysfunction Erectile Hypertension Essential Primary documented in this encounter
--- OUTSIDE RECORDS SUMMARY | 2021-12-18 16:01 | XMS_ITS | Encounter Summary ---
:1950 Author Organization [facility] Address [address] [place] [address] Care Team Providers Name Role Phone Elsewhere, Pcp Primary Care Provider Unavailable Encounter Details Date Type Department Care Team Description 01/21/2021 Hospital Encounter Department of Gaspar, Lenny H, Primluis y Malignant Laboratory Medicine M.DAlvarez Neoplasm Of Prostate in [address] ([facility]) [place], [place] [address] [address] [place], [place] [phone] (Work) [phone] Social History Tobacco Use Types Packs/Day Years [...] 06/27/2021 relatives? How often do you attend spiritism or anabaptism 1 to 4 times per year 06/27/2021 services? Do you belong to any clubs or organizations such No 06/27/2021 as spiritism groups, unions, fraternal or athletic groups, or [...] End Date acetaminophen (TYLENOL) Take 2 tablets (1,000 0 1 04/03/2020 500 mg tablet mg total) by mouth every 6 (six) hours as needed for pain. amLODIPine (NORVASC) 10 Take 10 mg by mouth 0 mg tablet daily. aspirin [address] tablet Hold for one week 0 01/31 post-surgery blood sugar diagnostic 2 times daily. 0 1 (Accu-Chek Guide test strips) strips cholecalciferol, Daily 0 vitamin D3, 25 mcg (1,000 Unit) tablet diclofenac sodium Twice A Day as needed 0 021 (VOLTAREN) 50 mg EC tablet lancets 2 times daily. 0 05/22/2020 lisinopriL Take 40 mg by mouth 0 05/18/2020 (PRINIVIL,ZESTRIL) 40 at bedtime. mg tablet metoprolol tartrate Twice A Day 0 05/18/2020 (LOPRESSOR) 50 mg tablet triamterene-hydroCHLORO Take 1 tablet by 0 2020 thiazide (MAXZIDE-25) mouth daily. 37.5-25 mg per tablet sulfamethoxazole-trimet Take 1 tablet by 6 tablet 0 202002/03/2021 hoprim (BACTRIM DS) mouth 2 (two) times a 800-160 mg per tablet day for 3 days. Begin one day prior to catheter removal aspirin [address] tablet Daily 0 1 04/03/2020 diazePAM (VALIUM) 5 mg Take 1 tablet (5 mg 6 tablet 0 04/202002/11/2021 tablet total) by mouth 3 (three) times a day as needed (bladder spasms uncontrolled with Trospium). dmywjdsv-qkymbmgryo-qdb You may experience 0 04/202002/11/2021 ymyxin (NEOSPORIN) 3.5 pain at the tip of mg-400 unit-5,000 the penis while the unit/gram ointment catheter is indwelling. This may be improved by application of mokd-myp-anqilzl antibiotic ointment as needed and may be [...] CATHETER REMOVAL documented as of this encounter Plan of Treatment Upcoming Encounters Date Type Specialty Care Team Description 12/23/2021 Appointment Radiation Oncology Low George M.D. [address] [place], [place] [phone] (Wo rk) documented as of this encounter Procedures Procedure Name Priority Date/Time Associated Comments Diagnosis ACTIVATED PARTIAL Routine 01/21/2021 10:08 Primary Malignant R esults for this THROMBOPLASTIN TIME AM FILL TECHNICIAN Neoplasm Of procedur e are in (APTT), P Prostate (HCC) the results section. PROTHROMBIN TIME (PT), Routine 01/21/2021 10:08 Primary Malign ant Results for this P AM FILL TECHNICIAN Neoplasm Of procedure are i n Prostate (HCC) the results section. CBC WITHOUT Routine 01/21/2021 10:08 Primary Malignant Result s for this DIFFERENTIAL, B AM FILL TECHNICIAN Neoplasm Of procedure ar e in Prostate (HCC) the results section. BASIC METABOLIC PANEL, Routine 01/21/2021 10:08 Primary Malign ant Results for this S/P AM FILL TECHNICIAN Neoplasm Of procedure are i n Prostate (HCC) the results section. documented in this encounter Results Prothrombin Time (PT) (01/21/2021 10:08 AM FILL TECHNICIAN) athologist Signature Prothrombin 11.5 9.4 - 12.5 01/21/2021 [place] Time, P sec 10:30 AM FILL TECHNICIAN INR 1.0 0.9 - 1.1 01/21/2021 [facility]AT 10:30 AM FILL TECHNICIAN Comment: ----ADDITIONAL INFORMATION---- Standard intensity warfarin therapeutic range: 2.0 to 3.0 ?? High intensity warfarin therapeutic rang e: 2.5 to 3.5 Specimen Anatomical Collection Method Collection Time Receive d Time (Source) Location / / Volume Laterality Blood (Blood, 01/21/2021 10:08 01/21/2021 Venous) AM FILL TECHNICIAN 10:13 AM FILL TECHNICIAN Lenny Gaspar M.D. LAB BLOOD ADD-ON Performing Organization Address City/State/ZIP Code Phon e Number [facility] [address] [place] [address] [place] [address] System in [place] [address] CBC without Differential (01/21/2021 10:08 AM FILL TECHNICIAN) athologist Signature Hemoglobin 15.9 13.2 - 01/21/2021 [facility] 16.6 g/dL 10:20 AM FILL TECHNICIAN Hematocrit 47.3 38.3 - 01/21/2021 [facility] 48.6 % 10:20 AM FILL TECHNICIAN Erythrocytes 5.22 4.35 - 01/21/2021 [place] 5.65 10:20 AM FILL TECHNICIAN x10(12)/L MCV 90.6 78.2 - 01/21/2021 [place] 97.9 fL 10:20 AM FILL TECHNICIAN RBC Distrib Width 12.2 11.8 - 01/21/2021 [facility] 14.5 % 10:20 AM FILL TECHNICIAN Platelet Count 221 135 - 317 01/21/2021 [facility] x10(9)/L 10:20 AM FILL TECHNICIAN Leukocytes 5.4 3.4 - 9.6 01/21/2021 [facility] x10(9)/L 10:20 AM FILL TECHNICIAN Specimen Anatomical Collection Method Collection Time Receive d Time (Source) Location / / Volume Laterality Blood (Blood, 01/21/2021 10:08 01/21/2021 Venous) AM FILL TECHNICIAN 10:13 AM FILL TECHNICIAN Lenny Gaspar M.D. LAB BLOOD ADD-ON Performing Organization Address City/State/ZIP Code Phon e Number [facility] [address] [place] [address] [place] [address] System in [place] [address] (ABNORMAL) Basic Metabolic Panel (01/21/2021 10:08 AM FILL TECHNICIAN) Analysis Performed At Patho logist Time Signature Potassium, P 3.7 3.6 - 5.2 01/21/2021 [place] mmol/L 10:47 AM FILL TECHNICIAN Sodium, P 144 135 - 145 01/21/2021 [facility] mmol/L 10:47 AM FILL TECHNICIAN Chloride, P 104 98 - 107 01/21/2021 [place] mmol/L 10:47 AM FILL TECHNICIAN Bicarbonate, P 32 (H) 22 - 29 01/21/2021 [place] mmol/L 10:47 AM FILL TECHNICIAN Anion Gap, P 8 7 - 15 01/21/2021 [place] 10:47 AM FILL TECHNICIAN BUN (Blood Urea 27 (H) 8 - 24 01/21/2021 [facility] Nitrogen), P mg/dL 10:47 AM FILL TECHNICIAN Creatinine 1.39 (H) 0.74 - 01/21/2021 [place] 1.35 mg/dL 10:47 AM FILL TECHNICIAN eGFR-Black/Afri 59 (L) >=60 01/21/2021 [facility] can Burmese mL/min/BSA 10:47 AM FILL TECHNICIAN Comment: ----ADDITIONAL INFORMATION---- Estimated GFR calculated using the 2009 CKD_EPI creatinine equation. eGFR Non-Black/ 51 (L) >=60 mL/min/BSA 01/21/2021 10:47 AM FILL TECHNICIAN [facility] [place] Comment: ----ADDITIONAL INFORMATION---- Estimated GFR calculated using the 2009 CKD_EPI creatinine equation. Calcium, Total, P 9.5 8.8 - 10.2 mg/dL 01/21/2021 10:4 7 AM FILL TECHNICIAN [facility] Glucose, P 117 70 - 140 mg/dL 01/21/2021 10:47 AM FILL TECHNICIAN [facility] Specimen Anatomical Collection Method Collection Time Receive d Time (Source) Location / / Volume Laterality Blood (Blood, 01/21/2021 10:08 01/21/2021 Venous) AM FILL TECHNICIAN 10:12 AM FILL TECHNICIAN Lenny Gaspar M.D. LAB BLOOD ADD-ON Performing Organization Address City/State/ZIP Code Phon e Number [facility] [address] [place] [address] [place] [address] System in [place] [address] APTT (Activated Partial Thromboplastin Time) (01/21/2021 10:08 AM FILL TECHNICIAN) P athologist Signature Activated 28 25 - 37 sec 01/21/2021 [facility] Partial 10:33 AM FILL TECHNICIAN Thrombopl Time, P Specimen Anatomical Collection Method Collection Time Receive d Time (Source) Location / / Volume Laterality Blood (Blood, 01/21/2021 10:08 01/21/2021 Venous) AM FILL TECHNICIAN 10:13 AM FILL TECHNICIAN Lenny Gaspar M.D. LAB BLOOD ADD-ON Performing Organization Address City/State/ZIP Code Phon e Number [facility] [address] [place] [facility] [address] [facility] [employer] [place] [address] System in [place] [address] [facility] documented in this encounter Visit Diagnoses Diagnosis Primary Malignant Neoplasm Of Prostate ( HCC) documented in this encounter Care Teams Fluid Pump Operator Relationship Specialty Start Date End Date Elsewhere, Pcp PCP - General Family Medicine 01/21/21 01/29/21 documented as of this encounter
--- OUTSIDE RECORDS SUMMARY | 2021-12-18 16:01 | XMS_ITS | Encounter Summary ---
:1950 Author Organization [facility] Address [address] [place] [address] Care Team Providers Name Role Phone Unavailable Primary Care Provider Unavailable Encounter Details Date Type Department Care Team Description 11/29/2020 Clinical Communication Department of Urology [place]par [place] [address] [facility] [address] [place] [phone] Social History Tobacco Use Types Packs/Day Years [...] How often do you attend yazdanism or anabaptist 1 to 4 times per [...] this encounter Miscellaneous Notes Telephone Encounter - Xiomy Tatum - 11/29/2020 2:09 PM CDT Mrs. Barton called back. I let her know about the aspirin. She did say that Dr. Gaspar had mentioned this yesterday at their visit :-) Telephone Encounter - Katheryn Vasquez R.N. - 11/29/2020 9:44 AM CDT ----- Message from Lenny Gaspar M.D. sent at 11/28/2020 4:49 PM CDT ----- Regarding: Stopping aspirin Prior to surgery Ismael Campa, I saw this patient in clinic on 11/28 and schedule him for surgery on 01/30/2021 I forgot to tell him to stop his aspirin 7 days prior to the surgery. Would you mind touching base with him to let him know to stop his aspirin 7 days prior to surgery He unfortunately does not have the portal and I have tried to reach him several times by phone but was unable Thanks Katheryn -Lenny documented in this encounter Plan of Treatment Upcoming Encounters Date Type Specialty Care Team Description 12/23/2021 Appointment Radiation Oncology Low George M.D. [address] [place] [phone] (Wo rk) documented as of this encounter Visit Diagnoses Not on filedocumented in this encounter
--- OUTSIDE RECORDS SUMMARY | 2021-12-18 16:01 | XMS_ITS | Encounter Summary ---
:1950 Author Organization [facility] Address [address] [place] [address] Care Team Providers Name Role Phone Unavailable Primary Care Provider Unavailable Reason for Referral Outpatient (Routine) - Closed Specialty Diagnoses / Procedures Referred By Contact Refer red To Contact Urology Diagnoses Primary Malignant Neoplasm Of Prostate (HCC) Oseas Oswald M.D. [facility] [address] [phone] Referral ID Status Reason Start Date Expiration Date Visits Requ ested Visits Authorized [id number] Closed 10/18/2020 10/18/2021 1 1 Reason for Visit Reason Comments Prostate Cancer Outpatient (Routine) - Closed Specialty Diagnoses / Procedures Referred By Contact Refer red To Contact Urology Oseas Oswald M.D. [facility] [address] [place] [phone] Referral ID Status Reason Start Date Expiration Date Visits Requ ested Visits Authorized [id number] Closed 09/06/2020 09/06/2021 1 1 Encounter Details Date Type Department Care Team Description 10/18/2020 Office Visit Department of Urology Oseas Oswald Pri mary Malignant [place] Neoplasm Of Prostate [address] [facility] (HCC) (Primary Dx) [place] [phone] Social History Tobacco Use Types Packs/Day Years [...] How often do you attend gnosticism or restoration 1 to 4 times per [...] Sign Reading Time Taken Comments Blood Pressure 134/74 10/18/2020 10:18 AM CDT Pulse 58 10/18/2020 10:18 AM CDT Temperature 36.6 ??C (97.9 ??F) 10/18/2020 10:18 AM CDT Respiratory Rate - - Oxygen Saturation - - Inhaled Oxygen Concentration - - Weight - - Height - - Body Mass Index - - documented in this encounter Progress Notes Oseas Oswald M.D. - 10/18/2020 10:30 AM CDT CHIEF COMPLAINT/REASON FOR VISIT Prostate cancer ?? HISTORY OF PRESENT ILLNESS This is a 70-year-old male who has a prostate specific antigen of 5.3. The patient has a positive family history of prostate cancer, specifically paternal grandfather. Digital rectal exam reveals a prostate nodule at the left apex. Prostate MRI revealed a prostate of 79 g with a PIRADS 5 lesion located left posterior lateral mid apical peripheral zone. ?? Prostate ultrasound and biopsy was performed on August 30, 2020. This revealed a prostate size of 87.3 cubic cm. Hypoechoic lesion was identified corresponding to the apical lesion on the left side. Surgical pathology: A. Right prostate core biopsies: ??Benign prostate tissue. B. Left prostate core biopsies: ??Prostate adenocarcinoma, Hope grade 3 + 3 (grade group 1), less than 1 mm in greatest linear dimension involving 1 of 6 cores / core-like fragments and involving less than 5% of the submitted tissue. COMMENT : ??No basal cells are seen in the area of adenocarcinoma on cytokeratin 5/14 and p63 immunohistochemical stains supporting the diagnosis. C. Left apex prostate core biopsies: ??Prostate adenocarcinoma, Hope grade 3 + 4 (grade group 2), 2 mm in greatest linear dimension involving 2 of 4 cores and involving less than 5% of the submitted tissue. COMMENT : ??No basal cells are seen in the areas of adenocarcinoma on cytokeratin 5/14 and p63 immunohistochemical stains supporting the diagnosis. The patient is leaning towards surgery. He did have some questions which we went over. ?? MEDICATIONS Current Outpatient Medications Medication Sig Dispense Refill ??? amLODIPine (NORVASC) 10 mg tablet Take [...] tablet Take 1 tablet by mouth daily. No current facility-administered medications for this visit. ?? ALLERGIES No Known Allergies ? VITAL SIGNS BP 134/74 Pulse (!) 58 Temp 36.6 ??C ? IMPRESSION/REPORT/PLAN Prostate adenocarcinoma, Hope 3 + 4, grade group 2, stage II B, cT2a, cN0, cM0 ?? PLAN: A referral is placed to colleagues in [place] for consideration of a robotic assisted radical retropubic prostatectomy. Patient is advised that this will include a 2nd opinion where everything will be reviewed. Electronically signed by: Oseas Oswald M.D. 10/18/20 10:49 AM CDT documented in this encounter Plan of Treatment Upcoming Encounters Date Type Specialty Care Team Description 12/23/2021 Appointment Radiation Oncology Low George M.D. [address] [place], [place] [phone] (Wo rk) Scheduled Referrals Name Type Priority Associated Diagnoses Order S [facility] Urology - Oncology Outpatient Referral Routine Primary Maligna nt Expected: - prostate consult Neoplasm Of Prostate 0 10/18/2020 (clinic) (HCC) (Approximate), Expires: 10/19/2023 documented as of this encounter Visit Diagnoses Diagnosis Primary Malignant Neoplasm Of Prostate ( HCC) - Primary documented in this encounter
--- OUTSIDE RECORDS SUMMARY | 2021-12-18 16:01 | XMS_ITS | Encounter Summary ---
:1950 Author Organization [facility] Address [address] [place] [address] Care Team Providers Name Role Phone Elsewhere, Pcp Primary Care Provider Unavailable Reason for Visit Reason Comments Pre-op Exam Appointment Request (Routine) - Closed Specialty Diagnoses / Procedures Referred By Contact Refer red To Contact Family Medicine Referral ID Status Reason Start Date Expiration Date Visits Requ ested Visits Authorized [id number] Closed 11/28/2020 11/28/2021 1 1 Encounter Details Date Type Department Care Team Description 01/21/2021 Office Visit Department of Family Kalyn Mendenhall Pr eoperative Exam Medicine, [place] [facility], (Primary Dx) Clinic, in [facility] [address] [place] [phone] Social History Tobacco Use Types Packs/Day Years [...] 06/27/2021 relatives? How often do you attend caodaism or cheondoism 1 to 4 times per year 06/27/2021 services? Do you belong to any clubs or organizations such No 06/27/2021 as caodaism groups, unions, fraternal or athletic groups, or [...] Sign Reading Time Taken Comments Blood Pressure 143/80 01/21/2021 11:02 AM HOSPITAL MEDICAL ASSISTANT Pulse 78 01/21/2021 11:02 AM HOSPITAL MEDICAL ASSISTANT Temperature 36.7 ??C (98.1 ??F) 01/21/2021 11:02 AM HOSPITAL MEDICAL ASSISTANT Respiratory Rate - - Oxygen Saturation - - Inhaled Oxygen Concentration - - Weight - - Height - - Body Mass Index - - documented in this encounter H&P Notes Kalyn Mendenhall APRN, C.N.P., M.S.N. - 01/21/2021 11:00 AM CST SUBJECTIVE CHIEF COMPLAINT/REASON FOR CONSULT Chief Complaint Patient presents with ??? Pre-op Exam Cory Barton is a 70 y.o. y.o. male who presents today for a pre- operative consultation at the request of Dr Gaspar who plans on performing ROBOTIC-ASSISTED RADICAL PROSTATECTOMY and ROBOTIC-ASSISTED DISSECTION LYMPH NODE - PELVIC on the following date: 01/30/21 at [facility]. Based on information from the [...] 1. Hx ischemic heart disease: NO (Hx VA, Hx positive exercise test, current complaint of [...] estimated risk of margarette-operative cardiac , non-fatal VA, or non-fatal cardiac arrest: 0 Predictors (0.4% risk of major cardiac event) Wood ABCDEFGHINO Checklist: A (Allergies): NO B (Bleeding [...] as always tobacco cessation. Kalyn Mendenhall APRN, C.NTova, M.S.N. ITAL MEDICAL ASSISTANT documented in this encounter Plan of Treatment Upcoming Encounters Date Type Specialty Care Team Description 12/23/2021 Appointment Radiation Oncology Low George M.D. [address] [place] [phone] (Wo rk) documented as of this encounter Visit Diagnoses Diagnosis Preoperative Exam - Primary documented in this encounter Care Teams Tripoler Relationship Specialty Start Date End Date Elsewhere, Pcp PCP - General Family Medicine 01/21/21 01/29/21 documented as of this encounter
--- OUTSIDE RECORDS SUMMARY | 2021-12-18 16:01 | XMS_ITS | Encounter Summary ---
:1950 Author Organization [facility] Address [address] [place] [address] Care Team Providers Name Role Phone Unavailable Primary Care Provider Unavailable Reason for Referral Outpatient (Routine) - Closed Specialty Diagnoses / Procedures Referred By Contact Refer red To Contact Urology Oseas Oswald M.D. [facility] [address] [place] [phone] Referral ID Status Reason Start Date Expiration Date Visits Requ ested Visits Authorized [id number] Closed 09/06/2020 09/06/2021 1 1 Reason for Visit Reason Comments Results Outpatient (Routine) - Closed Specialty Diagnoses / Procedures Referred By Contact Refer callie To Contact Urology Oseas Oswald M.D. [facility] [address] [place] [phone] Referral ID Status Reason Start Date Expiration Date Visits Requ ested Visits Authorized [id number] Closed 08/10/2020 08/10/2021 1 1 Encounter Details Date Type Department Care Team Description 09/06/2020 Office Visit Department of Urology Oseas Oswald Pri mary Malignant in [place] M[place]. Neoplasm Of Prostate [address] (HCC) (Primary Dx) [place] [phone] Social History Tobacco Use Types Packs/Day Years [...] How often do you attend muslim or spiritism 1 to 4 times per [...] Comments Blood Pressure - - Pulse 58 09/06/2020 10:55 AM CDT Temperature 36.2 ??C (97.2 ??F) 09/06/2020 10:55 AM CDT Respiratory Rate - - Oxygen Saturation 97% 09/06/2020 10:55 AM CDT room a ir Inhaled Oxygen Concentration - - Weight - - Height - - Body Mass Index - - documented in this encounter Procedure Notes Oseas Oswald M.D. - 09/06/2020 10:45 AM CDT CHIEF COMPLAINT/REASON FOR VISIT Elevated prostate specific antigen ?? HISTORY OF PRESENT ILLNESS This is a 69-year-old male who has a prostate specific antigen of 5.3. The patient has a positive family history of prostate cancer, specifically paternal grandfather. Digital rectal exam reveals a prostate nodule at the left apex. Prostate MRI revealed a prostate of 79 g with a PIRADS 5 lesion located left posterior lateral mid apical peripheral zone. Prostate ultrasound and biopsy was performed on August 30, 2020. This revealed a prostate size of 87.3 cubic cm. Hypoechoic lesion was identified corresponding to the apical lesion on the left side. He tolerated the biopsy well without any untoward events. No excessive bleeding, fevers or chills. ?? MEDICATIONS Current Outpatient Medications Medication Sig Dispense Refill ??? amLODIPine (NORVASC) 10 mg tablet Take 10 mg by mouth daily. ??? aspirin [address] tablet Daily ??? blood sugar diagnostic (Accu-Chek Guide test strips) strips 2 times daily. ??? diclofenac sodium (VOLTAREN) 50 mg EC tablet Twice A Day as needed ??? lancets (Accu-Chek Softclix Lancets) 2 times daily. ??? lisinopriL (PRINIVIL,ZESTRIL) 40 mg tablet Take 40 mg by mouth daily. ??? metoprolol tartrate (LOPRESSOR) 50 mg tablet Twice A Day ??? triamterene-hydroCHLOROthiazide (MAXZIDE-25) 37.5-25 mg per tablet Take 1 tablet by mouth daily. ??? cholecalciferol, vitamin D3, 25 mcg (1,000 Unit) tablet Daily No current facility-administered medications for this visit. ?? ALLERGIES No Known Allergies ? VITAL SIGNS Pulse (!) 58 Temp 36.2 ??C (Temporal) SpO2 97% Comment: room air Diagnostics FINAL DIAGNOSIS A. Right prostate core biopsies: ??Benign prostate tissue. B. Left prostate core biopsies: ??Prostate adenocarcinoma, [place] grade 3 + 3 (grade group 1), [...] and p63 immunohistochemical stains supporting the diagnosis. ? IMPRESSION/REPORT/PLAN Prostate adenocarcinoma, Valencia 3 + 4, grade group 2, stage II B, cT2a, cN0, cM0 ?? PLAN: The patient and I spent approximately 25-30 minutes together today. The vast majority of this time was spent counseling. We discussed the interpretation of the pathology report with respect to his PSA and pathology findings, staging techniques and treatment of localized prostate cancer. We reviewed the Valencia's grading system. We discussed his recent MRI with reference to staging. We reviewed treatment of the localized prostate cancer including active observation, traditional radical retropubic prostatectomy, da Belen radical prostatectomy, external beam radiation therapy, interstitial brachytherapy, a combination of interstitial brachytherapy with external beam radiation therapy, proton beam therapy, cryosurgery, and experimental treatments such as high- intensity focused ultrasound. The patientwas advised to review some of the patient oriented literature that is available. I have referred himto urologyhealth.net, a web site put on by the [employer], the [facility] web site and, as well to [email or web address].org which is a patient supported prostate cancer web site. He will return to clinic in 3-6 weeks to discuss this further. At this point he is not ready to makea treatment decision. Electronically signed by: Oseas Oswald M.D. 09/06/20 12:34 PM CDT documented in this encounter Plan of Treatment Upcoming Encounters Date Type Specialty Care Team Description 12/23/2021 Appointment Radiation Oncology Low George M.D. [address] [place], [place] [phone] (Wo rk) Scheduled Referrals Name Type Priority Associated Diagnoses Order S chedule Urology office Outpatient Referral Routine Expect ed: visit (clinic) 10/15/2020 (Approximate), Expires: 09/07/2023 documented as of this encounter Visit Diagnoses Diagnosis Primary Malignant Neoplasm Of Prostate ( HCC) - Primary documented in this encounter
--- OUTSIDE RECORDS SUMMARY | 2021-12-18 16:01 | XMS_ITS | Encounter Summary ---
:1950 Author Organization [facility] Address [address] [place] [address] Care Team Providers Name Role Phone Elsewhere, Pcp Primary Care Provider Unavailable Encounter Details Date Type Department Care Team Description 01/27/2021 Lab Department of Lenny Fountain M.D. Primary Malignant Medicine, [facility] [address] [facility] Neoplasm Of Prostate Building, in [place], [place] ([facility] ) [place] [address] [place] [address] [place] [address] [facility] [phone] Social History Tobacco Use Types Packs/Day Years [...] How often do you attend buddhist or protestant 1 to 4 times per [...] Radiation Oncology Low George M.D. [address] [place], [place] [phone] (Wo rk) documented as of this encounter Procedures Procedure Name Priority Date/Time Associated Diagnosis Comme nts SARS CORONAVIRUS-2 Routine 01/27/2021 8:56 AM Primary Malignan t Results for this RNA, V CABLE REPAIRER Neoplasm Of Prostate procedu re are in (HCC) the results section. documented in this encounter Results SARS Coronavirus-2 RNA, V Asymptomatic (01/27/2021 8:56 AM CABLE REPAIRER) [facility] Method Time Signature SARS-CoV-2 Swab, 01/28/2021 MKTO Specimen Nasopharynx 3:51 PM CABLE REPAIRER Source SARS CoV-2 Undetected Undetected 01/28/2021 MKTO RNA, TMA 3:51 PM CABLE REPAIRER Comment: SARS-CoV-2 RNA absent. This result does not rule out COVID-19 in the patient, as the sensitivity of the test depends o n the timing of the specimen collection and the quality of the specim en. Result should be correlated with patient's history and clinical presentat ion. ----ADDITIONAL INFORMATION---- This molecular amplification test was pe rformed using the Aptima SARS-CoV-2 assay ([employer] on the [employer] tem under emergency use authorization (EUA) by the U.S. Food and Drug Administ gabriel. Fact sheets for this EUA assay can be fo und at the following links: For Healthcare Providers: https://www.fd a.gov/media/566506/download For Patients: https://www.fda.gov/media/ 450677/download Specimen Anatomical Collection Method Collection Time Receive d Time (Source) Location / / Volume Laterality Varies 01/27/2021 8:56 AM 4:45 (Nasopharynx) CABLE REPAIRER PM CABLE REPAIRER Lenny Gaspar M.D. LAB MICROBIOLOGY - GENERAL O RDERABLES Performing Organization Address City/State/ZIP Code Phon e Number [facility]- [address] [place] [address] [place] [address] [address] documented in this encounter Visit Diagnoses Diagnosis Primary Malignant Neoplasm Of Prostate ( HCC) documented in this encounter Additional Health Concerns Infection Onset Date Last Indicated Resolved Time COVID19 Pending 01/26/2021 01/27/2021 01/28/2021 3:52 PM CABLE REPAIRER documented as of this encounter Care Teams Bow Maker Machine Tender Relationship Specialty Start Date End Date Elsewhere, Pcp PCP - General Family Medicine 01/21/21 01/29/21 documented as of this encounter
--- OUTSIDE RECORDS SUMMARY | 2021-12-18 16:01 | XMS_ITS | Encounter Summary ---
:1950 Author Organization [facility] Address [address] [place] [address] Care Team Providers Name Role Phone Elsewhere, Pcp Primary Care Provider Unavailable Encounter Details Date Type Department Care Team Description 02/07/2021 Clinical Communication [facility] [place] [address] [facility] [address] [place] [phone] Social History Tobacco Use Types Packs/Day Years [...] this encounter Miscellaneous Notes Telephone Encounter - Yenny Zhang R.N. - 02/07/2021 1:13 PM CST ASSESSMENT Patient had a RRP on 01/30/[address] Lenny Gaspar. He notes blood in his [place] bag, light kat colored and a small amount of blood coming from around the catheter when he has a bowel movement. He notes that the urine in the tube is clear, and it is the urine in the collection bag that is kat colored. This started on Thursday. He denies, increased pain, feels that his bladder is getting empty. He denies s/s of UTI. He is scheduled for UCO on 02/11/21. PLAN Notify Dr. Martinez team. Disposition/Recommendation: self-care management appropriate at this time, patient encouraged to call back with questions. Information/Education: patient/caller able to teach back. Caller agreeable to plan of care: yes. The following references were used: nursing clinical judgement. MANAGER Telephone Encounter - Aranza Vila - 02/07/2021 12:56 PM CST Pt had prostatectomy on 01/30 and called in with concerns of having blood in his urine and also around the catheter. Please contact him at [phone] Thank you MANAGER documented in this encounter Plan of Treatment Upcoming Encounters Date Type Specialty Care Team Description 12/23/2021 Appointment Radiation Oncology Low George M.D. [address] [place], [place] [phone] (Wo rk) documented as of this encounter Visit Diagnoses Not on filedocumented in this encounter Care Teams Monorail Charger Operator Relationship Specialty Start Date End Date Elsewhere, Pcp PCP - General Family Medicine 01/30/21 documented as of this encounter
--- OUTSIDE RECORDS SUMMARY | 2021-12-18 16:02 | XMS_ITS | Encounter Summary ---
:1950 Author Organization [facility] Address [address] [place] [address] Care Team Providers Name Role Phone Unavailable Primary Care Provider Unavailable Reason for Referral Outpatient (Routine) - Closed Specialty Diagnoses / Procedures Referred By Contact Refer red To Contact Urology Oseas Oswald M.D. [facility] Region [address] [place] [phone] Referral ID Status Reason Start Date Expiration Date Visits Requ ested Visits Authorized [id number] Closed 08/10/2020 08/10/2021 1 1 utpatient (Routine) - Closed Specialty Diagnoses / Procedures Referred By Contact Refer red To Contact Diagnoses Elevated Prostate-Specific Antigen Oseas Oswald M.D. [facility] Procedures URO Miscellaneous procedure [address] [place] [phone] Referral ID Status Reason Start Date Expiration Date Visits Requ ested Visits Authorized [id number] Closed 08/10/2020 08/10/2021 1 1 RI/CAT/PET Scan (Routine) - Closed Specialty Diagnoses / Procedures Referred By Contact Refer red To Contact Radiology Diagnoses Elevated Prostate-Specific Antigen Oseas Oswald M.D. [facility] Procedures MR Prostate without and with IV Contrast [address], [place] [phone] Referral ID Status Reason Start Date Expiration Date Visits Requ ested Visits Authorized [id number] Closed 08/10/2020 08/10/2021 1 1 Reason for Visit Appointment Request (Routine) - Closed Specialty Diagnoses / Procedures Referred By Contact Refer red To Contact Urology Referral ID Status Reason Start Date Expiration Date Visits Requ ested Visits Authorized [id number] Closed 07/03/2020 07/03/2021 1 1 Encounter Details Date Type Department Care Team Description 08/10/2020 Comprehensive Visit [facility] [place] Prostate-Specific [place] [address] Antigen (Primary Dx) [address] [place] [phone] Social History Tobacco Use Types Packs/Day Years Used Date Smoking Tobacco: Never Assessed Smokeless Tobacco: Never Alcohol Habits Answer Date [...] How often do you attend tenriism or adventist 1 to 4 times per year 06/27/2021 [...] [place] [facility] (including now)? Sex Assigned at Date Recorded Male 06/27/2021 1:28 PM CDT documented as of this encounter Last Filed Vital Signs Vital Sign Reading Time Taken Comments Blood Pressure 144/80 08/10/2020 2:42 PM CDT Pulse 58 08/10/2020 2:42 PM CDT Temperature 37.3 ??C (99.1 ??F) 08/10/2020 2:42 PM CDT Respiratory Rate - - Oxygen Saturation - - Inhaled Oxygen Concentration - - Weight - - Height - - Body Mass Index - - documented in this encounter Consult Notes Oseas Oswald M.D. - 08/10/2020 3:00 PM CDT CHIEF COMPLAINT/REASON FOR VISIT Elevated prostate specific antigen PRIMARY PROVIDER Gilberto Cho MD HISTORY OF PRESENT ILLNESS This is a 69-year-old male who is here for 2nd opinion. He was found to have an elevated prostate specific antigen of 5.35 on May 16, 2020. Apparently his prostate specific antigen has been increasing fairly gradually for a number of years. At this time I do not have his prior prostate specific antigen values. The patient's maternal grandfather has had prostate cancer. He thinks his paternal grandfather may have also had prostate cancer. He is unaware of any other family members with prostate cancer or, for that matter other cancers. He has minimal lower urinary tract symptoms. He voids every 3-4 hours during the day, and less than twice per night. No hematuria or dysuria. PAST MEDICAL HISTORY History of having adenomatous colonic polyps FAMILY HISTORY Maternal grandfather has had prostate cancer. Possible prostate cancer in his paternal grandfather. No other urological cancers in his family. No other urological disease known to exist in his family. 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 REVIEW OF SYSTEMS see personal history form dated August 10, 2020 MEDICATIONS Current Outpatient Medications Medication Sig Dispense Refill ??? amLODIPine (NORVASC) 10 mg tablet Take 10 mg by mouth. ??? aspirin [address] tablet Daily ??? blood sugar diagnostic (Accu-Chek Guide test strips) strips 2 times daily. ??? cholecalciferol, vitamin D3, 25 mcg (1,000 Unit) tablet Daily ??? diclofenac sodium (VOLTAREN) 50 mg EC tablet Twice A Day as needed ??? lancets (Accu-Chek Softclix Lancets) 2 times daily. ??? lisinopriL (PRINIVIL,ZESTRIL) 40 mg tablet Take 40 mg by mouth. ??? metoprolol tartrate (LOPRESSOR) 50 mg tablet Twice A Day ??? triamterene-hydroCHLOROthiazide (MAXZIDE-25) 37.5-25 mg per tablet ??? ciprofloxacin (CIPRO) 500 mg tablet No current facility-administered medications for this visit. ALLERGIES No Known Allergies VITAL SIGNS BP 144/80 Pulse (!) 58 Temp 37.3 ??C (Temporal) PHYSICAL EXAMINATION General: Well-nourished, well-developed adult male in no apparent distress. No communication barriers. Head: No abnormality of appearance. No facial abnormalities. No neck masses. Heart: Regular rate and rhythm. No peripheral cyanosis or edema. Lungs: Normal respiratory movements. No shortness of breath. Abdomen: Flat and nondistended. Rectum: Perirectal Region: Unremarkable without evidence of condyloma, skin tags or other lesions. Rectal sphincter tone is normal. There are no rectal masses. Prostate: Prostate is approximately 50-60 grams in size. It is smooth in consistency. It is symmetrical. Prostate is nontender. Prostate nodule is present at the left apex, it is raised and firm measuring 8-10 mm. Seminal vesicles are not palpable. Spine: No spinal tenderness. No costovertebral angle tenderness. IMPRESSION/REPORT/PLAN 1. Abnormal digital rectal exam 2. Elevated prostate specific antigen I would agree that proceeding with an MRI, followed by a biopsy is a most reasonable plan. We will make arrangements to have the MRI performed in [place] in the near future. This could be either a multiparametric or by metric MRI. This would give us greater staging information and help determine if there other lesions within the prostate. Given that this lesion is palpable, I think a office transrectal prostate ultrasound and biopsy is most reasonable. He already has a prescription for ciprofloxacin, he is instructed to use this. He is to take the 1stdose approximately 2-3 hours prior to the procedure. He is also asked to have a Fleet's enema at thetime. He was offered to do this in [place] or in [place]. This is tentatively being scheduled in [place] on August 30 with follow-up 1 week later. Literature and written instructions are provided. Electronically signed by: Oseas Oswald M.D. 08/10/20 3:39 PM CDT documented in this encounter Plan of Treatment Upcoming Encounters Date Type Specialty Care Team Description 12/23/2021 Appointment Radiation Oncology Low George M.D. [address] [place], [place] [phone] (Wo rk) Scheduled Orders Name Type Priority Associated Diagnoses Order S chedule URO Miscellaneous Procedure Routine Elevated Expected: procedure Prostate-Specific 08/30/2020 Antigen (Approximate), Expires: 08/11/2023 Scheduled Referrals Name Type Priority Associated Diagnoses Order S chedule Urology office Outpatient Referral Routine Expect ed: visit (clinic) 09/06/2020 (Approximate), Expires: 08/11/2023 documented as of this encounter Results MR Prostate without and with IV Contrast (08/17/2020 11:27 AM CDT) Anatomical Region Laterality Modality Pelvis, Abdominal RST LOS, Abdominal ARZ LOS, Abdominal N/A Magnetic Resonance FLA LOS Specimen (Source) Anatomical Collection Method Collection Time Re ceived Time Location / / Volume Laterality 08/17/2020 10:57 AM CDT Impressions 08/17/2020 12:09 PM CDT Large lesion in the left mid-apical posterolateral peripheral zone is highly suspicious for clinically significant pr ostate cancer (PIRADS 5). Narrative 08/17/2020 12:09 PM CDT EXAM: MR PROSTATE WITHOUT AND WITH IV CONTRAST CLINICAL HISTORY: Elevated PSA. Left api juan c nodule palpated on physical exam. Most Recent PSA 5.35 ng/mL. COMPARISON: None. PROSTATE: Volume: 79cc ?(PSA density 0.07) Exam quality: Good. Peripheral zone: Approximately 22 x 13 x 15 mm T2 hypoint ense lesion in the left posterolateral mid-apical peripheral zone (series 4 grady ges 20-24) has corresponding marked restricted diffusion (series 650 images 78-73, minimum ADC 469) and hyperenhancement (series 31,000 images 3 95-398). This lesion is suspicious for clinically significant prostate cancer ( PIRADS 5). Transition zone: Marked nodular hypertrophy without a def inite suspicious lesion. Staging: Broad capsular contact of the left perip heral zone lesion with capsular bulging and irregularity is worrisome for extrac apsular extension and neurovascular bundle involvement. No seminal vesicle invasion. No enlarged pelvic lymph nodes. No suspicious bone lesions. Additional findings: Renal cysts. Small fat-containing inguin al hernias. Mild bladder wall thickening. Colonic diverticulosis. Procedure Note London Cifuentes M.D., Ph.D. - 1 EXAM: MR PROSTATE WITHOUT AND WITH IV CO NTRAST CLINICAL HISTORY: Elevated PSA. Left api juan c nodule palpated on physical exam. Most Recent PSA 5.35 ng/mL. COMPARISON: None. PROSTATE: Volume: 79cc (PSA density 0.07) Exam quality: Good. Peripheral zone: Approximately 22 x 13 x 15 mm T2 hypoint ense lesion in the left posterolateral mid-apical peripheral zone (series 4 grady ges 20-24) has corresponding marked restricted diffusion (series 650 images 78-73, minimum ADC 469) and hyperenhancement (series 31,000 images 3 95-398). This lesion is suspicious for clinically significant prostate cancer ( PIRADS 5). Transition zone: Marked nodular hypertrophy without a def inite suspicious lesion. Staging: Broad capsular contact of the left perip heral zone lesion with capsular bulging and irregularity is worrisome for extrac apsular extension and neurovascular bundle involvement. No seminal vesicle invasion. No enlarged pelvic lymph nodes. No suspicious bone lesions. Additional findings: Renal cysts. Small fat-containing inguin al hernias. Mild bladder wall thickening. Colonic diverticulosis. IMPRESSION: Large lesion in the left mid-apical post erolateral peripheral zone is highly suspicious for clinically significant pr ostate cancer (PIRADS 5). Oseas Oswald M.D. IMG MRI PROCEDURES documented in this encounter Visit Diagnoses Diagnosis Elevated Prostate-Specific Antigen - Lynda brittany Elevated Prostate-Specific Antigen documented in this encounter
--- OUTSIDE RECORDS SUMMARY | 2021-12-18 16:02 | XMS_ITS | Encounter Summary ---
:1950 Author Organization [facility] Address [address] [place] [address] Care Team Providers Name Role Phone Unavailable Primary Care Provider Unavailable Reason for Visit Reason Comments COVID Inquiry Encounter Details Date Type Department Care Team Description 08/14/2020 Clinical Communication Department of Urology Oseas Oswald COVID Inquiry in Fran Sung M.D. [address] [place] [phone] Social History Tobacco Use Types Packs/Day Years [...] 06/27/2021 relatives? How often do you attend temple or episcopalian 1 to 4 times per year 06/27/2021 services? Do you belong to any clubs or organizations such No 06/27/2021 as temple groups, unions, fraternal or athletic groups, or [...] or slept in a fdc (including now)? Sex Assigned at Date Recorded Male 06/27/2021 1:28 PM CDT documented as of this encounter Miscellaneous Notes Telephone Encounter - Bea Valdez - 08/14/2020 4:07 PM CDT What is the purpose of the call?: Standard Appointment Process Standard Appointment Process Have you tested positive for COVID-19 in the last 20 days OR do you have a pending COVID-19 test because you had symptoms?: No, neither apply What region is the appointment being requested?: Less than 14 days [place] In the past 14 days are any of the following symptoms new to you and not related to an existing health condition?: No symptoms noted In the past 14 days have you had close contact* with a person who has a LABORATORY CONFIRMED case ofCOVID-19?: No exposure noted, follow appt process (End Screening) Plan: Endpoint recommendation: Followed regional [facility] *Reminder if sending patient for testing in [facility] or [facility], route encounter to the correct testing pool. documented in this encounter Plan of Treatment Upcoming Encounters Date Type Specialty Care Team Description 12/23/2021 Appointment Radiation Oncology Low George M.D. [address] [place], [place] [phone] (Wo rk) documented as of this encounter Visit Diagnoses Not on filedocumented in this encounter
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
--- OUTSIDE RECORDS SUMMARY | 2021-12-18 16:02 | XMS_ITS | Encounter Summary ---
:1950 Author Organization [facility] Address [address] [place] [address] Care Team Providers Name Role Phone Unavailable Primary Care Provider Unavailable Reason for Referral MRI/CAT/PET Scan (Routine) - Closed Specialty Diagnoses / Procedures Referred By Contact Refer red To Contact Radiology Diagnoses Elevated Prostate-Specific Antigen Oseas Oswald M.D. [facility] Procedures MR Prostate without and with IV Contrast [address] [place] [phone] Referral ID Status Reason Start Date Expiration Date Visits Requ ested Visits Authorized [id number] Closed 08/10/2020 08/10/2021 1 1 Reason for Visit MRI/CAT/PET Scan (Routine) - Closed Specialty Diagnoses / Procedures Referred By Contact Refer red To Contact Radiology Diagnoses Elevated Prostate-Specific Antigen Oseas Oswald M.D. [facility] Procedures MR Prostate without and with IV Contrast [address] [place] [address] Referral ID Status Reason Start Date Expiration Date Visits Requ ested Visits Authorized [id number] Closed 08/10/2020 08/10/2021 1 1 Encounter Details Date Type Department Care Team Description 08/17/2020 Hospital Encounter Department of Misha Oswald, Jazmín Farooq M.D. Prostate-Specific [facility], in [address] [place] [address] [place] [phone] Social History Tobacco Use Types Packs/Day Years [...] How often do you attend presybeterian or spiritism 1 to 4 times per [...] place to sleep or slept in a fci (including now)? Sex Assigned at Date Recorded Male 06/27/2021 1:28 PM CDT documented as of this encounter Medications at Time of Discharge Medication Sig Dispensed Refills Start Date End Date amLODIPine (NORVASC) 10 mg Take 10 mg by mouth 0 05/18/2020 tablet daily. blood sugar diagnostic 2 times daily. [...] (MAXZIDE-25) 37.5-25 mouth daily. mg per tablet aspirin [address] tablet Daily 0 1 04/03/2020 ciprofloxacin (CIPRO) 500 0 07/02/2020 09/06/2020 mg tablet documented as of this encounter Nursing Notes Tina Mcelroy R.N. - 08/17/2020 9:45 AM CDT Glucagon Administration Screening: Does patient have [...] appointments today? NO documented in this encounter Miscellaneous Notes Result Encounter Note - Jonathan Duncan R.N. - 08/17/2020 2:02 PM CDT LM for patient to return call. documented in this encounter Plan of Treatment Upcoming Encounters Date Type Specialty Care Team Description 12/23/2021 Appointment Radiation Oncology Low George M.D. [address] [place] [phone] (Wo rk) documented as of this encounter Procedures Procedure Name Priority Date/Time Associated Comments Diagnosis MR PROSTATE RAD - Routine 08/17/2020 11:27 Elevated Results fo r this WITHOUT AND WITH (most inpatients AM CDT Prostate-Specific pr ocedure are in IV CONTRAST and all Antigen the results outpatients) section. documented in this [...] significant pr ostate cancer (PIRADS 5). Oseas RIOS MRI PROCEDURES documented in this encounter Visit Diagnoses Diagnosis Elevated Prostate-Specific Antigen documented in this encounter Administered Medications Inactive Administered Medications - up to 3 most recent administrations Medication Order MAR Action Action Date Dose Rate Site gadoterate meglumine 0.5 mmol/mL Given 08/17/2020 11:15 AM CDT 1 8 mL (376.9 mg/mL) injection 1.6-20 mL (DOTAREM) 1.6-20 mL, intravenous, Once in imaging, contrast, Starting on Thu08/17/20 at 0940, For 1 dose, Imaging Protocol Orders, Dose per Radiant Medication Guidelines glucagon injection 0.5-1 mg Given 08/17/2020 11:07 AM CDT 1 mg Left Upper Arm (GlucaGen) (Back) 0.5-1 mg, subcutaneous, Once, On Thu08/17/20 at 0945, For 1 dose, Imaging Protocol Orders sodium chloride (PF) 0.9 % injection 1-1 00 mL Given 08/17/2020 11:15 AM CDT 20 mL 1-100 mL, intravenous, Once, On Thu08/17/20 at 0945, For 1 dose, Imaging Protocol Orders documented in this encounter
--- OUTSIDE RECORDS SUMMARY | 2021-12-18 16:02 | XMS_ITS | Encounter Summary ---
:1950 Author Organization [facility] Address [address] [place] [address] Care Team Providers Name Role Phone Unavailable Primary Care Provider Unavailable Reason for Visit Reason Comments Triage wants Urology appointment Encounter Details Date Type Department Care Team Description 07/03/2020 Clinical Communication Department of John Tolbert ([facility] General Surgery in [facility] A, R.N . Urology [address] appointment) [address] [place] [phone] Social History Tobacco Use Types Packs/Day Years [...] 06/27/2021 relatives? How often do you attend islam or catholic 1 to 4 times per year 06/27/2021 services? Do you belong to any clubs or organizations such No 06/27/2021 as islam groups, unions, fraternal or athletic groups, or [...] slept in a group home (including now)? Sex Assigned at Date Recorded Male 06/27/2021 1:28 PM CDT documented as of this encounter Miscellaneous Notes Telephone Encounter - Valeria Tolbert R.N. - 07/03/2020 9:08 AM CDT Specialty Surgical Services Triage Call Reason for call/visit Wants Urology appointment for Prostate Biopsy Call Note: Assessment Patient's calls and states that he was recently seen by a Urologist in [place] and he is recommending a Prostate Biospy. PSA is elevated and fran noted per records she was reading. Intervention Advised that he would need to see a provider to establish care prior to scheduling any procedures. No outside records available so asked that they bring in the records they have received for the consult appointment. [place] provider will make determination on next steps once consult has been completed. Has patient called or presented with the same symptom previously no Is patient experiencing other symptoms: no The following references were used: nursing clinical judgement Education provided: patient/caller able to teach back Disposition/Recommendation: assisted in consult appointment with Dr. Oswald Caller agreeable to plan of care: yes The following individuals participated in today???s interaction: Senior Pastor used: no Additional concerns addressed: none documented in this encounter Plan of Treatment Upcoming Encounters Date Type Specialty Care Team Description 12/23/2021 Appointment Radiation Oncology Low George M.D. [address] [place] [phone] (Wo rk) documented as of this encounter Visit Diagnoses Not on filedocumented in this encounter
[2021-12-18 18:29] LABS: PSA Diagnostic* < 0.06 ng/mL (0.10-4.00)
[2021-12-20 21:42] LABS: Sex Hormone Binding Globulin 63 nmol/L (19-76); Testosterone, Adult Male <3 ng/dL (300-720); Testosterone, Free Calculation <1 pg/mL (47-244); Testosterone, Percentage Free <1.1 % (1.6-2.9)
== END 2021-12-18 15:54 | disposition home or self-care (01) ==
LOC: NPINS 15:53
PROVIDERS: Visit Provider Internal Medicine
DX: Z00.00 Encounter for general adult medical examination without abnormal findings (principal); C61 Malignant neoplasm of prostate; E87.6 Hypokalemia; I10 Essential (primary) hypertension; R73.03 Prediabetes; R97.21 Rising PSA following treatment for malignant neoplasm of prostate; Z12.5 Encounter for screening for malignant neoplasm of prostate
CPT/HCPCS: 80048; 84153; 84270; 84402; 84403

== ENCOUNTER 2021-12-24 09:18 | Outpatient (CLI) | payer MEDICARE, BC, SELFPAY ==
[2021-12-24 15:57] LABS: Potassium* 3.7 mmol/L (3.6-5.1)
== END 2021-12-24 09:19 | disposition home or self-care (01) ==
LOC: LONREF 09:18
PROVIDERS: Visit Provider Family Medicine
DX: E87.6 Hypokalemia (principal)
CPT/HCPCS: 84132

== ENCOUNTER 2022-01-15 09:30 | Outpatient (CLI) | payer MEDICARE, BC, SELFPAY ==
--- OUTSIDE RECORDS SUMMARY | 2022-01-15 09:47 | XMS_ITS | Encounter Summary ---
:1950 Author Organization [facility] Address [address] [place] [address] Care Team Providers Name Role Phone Elsewhere, Pcp Primary Care Provider Unavailable Reason for Referral Outpatient (Routine) - Closed Specialty Diagnoses / Procedures Referred By Contact Refer red To Contact Radiation Oncology London George M .D. [facility] Region [address] [place] [address] Referral ID Status Reason Start Date Expiration Date Visits Requ ested Visits Authorized [id number] Closed 09/18/2021 09/18/2022 1 1 Scheduling Instructions Please schedule 2-3 days after [facility] lab a ppointment Radiation Therapy (Routine) - Authorized Specialty Diagnoses / Procedures Referred By Contact Refer red To Contact Diagnoses Primary Malignant Neoplasm Of Prostate (HCC) London George M.D. [facility] Procedures Management Visit [address] [place] [address] Referral ID Status Reason Start Date Expiration Date Visits V isits Requested Authorized [id number] Authorized 07/25/2021 07/25/2022 10 10 Reason for Visit Radiation Therapy (Routine) - Authorized Specialty Diagnoses / Procedures Referred By Contact Refer red To Contact Diagnoses Primary Malignant Neoplasm Of Prostate (HCC) London George M.D. [facility] [place] Procedures Management Visit [address] [place] [address] Referral ID Status Reason Start Date Expiration Date Visits V isits Requested Authorized [id number] Authorized 07/25/2021 07/25/2022 10 10 Encounter Details Date Type Department Care Team Description 09/18/2021 Hospital Encounter Department of London George Prostate Specific Antigen Following Treatment For Malignant Cancer Of Prostate (Primary Dx); Radiation Oncology Osmin Costello Primary Malignant Neoplasm Of Prostate ( HCC) in [place], [facility] [place]note 2] [address] [place], [place] [address] [facility] [address] [place], [place] [phone] (Work) [phone] Social History Tobacco Use Types Packs/Day Years [...] How often do you attend yarsani or congregation 1 to 4 times per [...] highest level of school Associate degree: academ [employer] program 06/27/2021 you have completed or the [...] Body Mass Index 30.6 01/30/2021 11:48 AM NUCLEAR MEDICINE TECH documented in this encounter Medications at Time of Discharge Medication Sig Dispensed Refills Start Date End Date abiraterone (ZYTIGA) 250 Take 4 tablets 120 tablet 11 022 mg tabletIndications: (1,000 mg total) by Primary Malignant mouth daily. Take Neoplasm Of Prostate on an empty stomach (HCC) (1 hour before or 2 hours after food). amLODIPine (NORVASC) 10 Take 10 mg by [...] Primary Malignant daily. Neoplasm Of Prostate (HCC) acetaminophen (TYLENOL) Take 2 tablets 0 02/01/20 21 500 mg tablet (1,000 mg total) by mouth every 6 (six) hours as needed for pain. bicalutamide (CASODEX) 50 Take 1 tablet (50 21 tablet 0 mg tablet mg total) by mouth daily. Take at the same time everyday. Take with or without food. sulfamethoxazole-trimetho TAKE 1 TABLET BY 6 tablet 0 04/202001/31/2022 prim (BACTRIM DS) 800-160 MOUTH TWO TIMES A mg per tablet DAY FOR 3 DAYS; BEGIN ONE DAY PRIOR TO CATHETER REMOVAL triamterene-hydroCHLOROth Take 1 tablet by 0 07/31 iazide (MAXZIDE-25) mouth daily. 37.5-25 mg per tablet documented as of this [...] (cGy) First Treatment Last Treatment Elapsed Days [id number] 25 / 25 200 5000 5000 08/05/2021 09/09/2021 35 [id number] 200 1400 1400 09/10/2021 09/18/2021 8 Treatment Site Summary [id number] 08/05/2021 09/18/2021 44 Course Summary 08/05/2021 09/18/2021 44 Oncology History Overview Note January 30, 2021: Robot-assisted, laparoscopic, bilateral non-nerve sparing radical prostatectomy and bilateral pelvic lymphadenectomy. Shelburn 4+5, pT3a N0 R0. Prep PSA 5.3 [...] B. Left prostate core biopsies: Prostate adenocarcinoma, Valencia grade 3 + 3 (grade group 1), less than 1 mm in greatest linear dimension involving 1 of 6 cores / core-like fragments and involving lessthan 5% of the submitted tissue. C. Left apex prostate core biopsies: Prostate adenocarcinoma, Shelburn grade 3 + 4 (grade group 2), [...] carcinoma. B. Prostate gland, radical prostatectomy: Adenocarcinoma (Shelburn pattern 4+5, grade group 5) is identified [...] Acinar adenocarcinoma Histologic Grade Grade Group and Shelburn Score Grade Group 3 (Shelburn Score 4+5=9) Minor Tertiary Pattern 5 (less than 5%): Not applicable Percentage of Pattern 4 in Shelburn score 7: Not applicable Intraductal Carcinoma (IDC): [...] patient would like to pursue radiotherapy in [place]. A referral was placed. He left the [...] mg injection on August 05, 2021 at [facility] #4 Stress urinary incontinence following prostatectomy, [...] will ask our desk to confirm that [facility] schedules Leuprolide injection on October 29, 2021. Dr. George will see patient in follow up visit in 3 months. We will check PSA and testosterone at [facility] a few days before follow up visit. Radiation Oncology [place] can be contacted at anytime for any questions or concerns. Toxicities reviewed with Dr. George today. Signed by: Chey Mcghee R.N. 09/18/2021 11:38 AM CDT I saw and evaluated the patient and participated in the [place] portions of the service. I reviewed the [...] pre-visit PSA and testosterone level drawn at [facility] a few days prior. He verbalized satisfaction with this plan. Signed by: London George M.D. 09/18/2021 6:46 PM CDT [facility] [address] [place] [address] documented in this encounter Miscellaneous Notes Addendum Note - Emma Rodriguez C.N.AAlvarez - 09/18/2021 10:00 AM CDT Encounter addended by: Emma Rodriguez C.NGraeme on: 09/19/2021 8:08 AM Actions taken: Letter saved documented in this encounter Plan of Treatment Scheduled Orders Name Type Priority Associated Diagnoses Order S chedule Management Visit Radiation Oncology Routine Primary Malignant Once for 1 Neoplasm Of Prostate Occurre nces starting (HCC) 09/18/2021 unti l 09/18/2021 Scheduled Referrals Name Type Priority Associated Diagnoses Order S chedule Radiation Oncology Outpatient Referral Routine Ex pected: office visit 12/19/2021 (clinic) (Approximate), Expires: 09/18/2022 documented as of this encounter Visit Diagnoses Diagnosis Rising Prostate Specific Antigen Followi ng Treatment For Malignant Cancer Of Prostate - Primary Primary Malignant Neoplasm Of Prostate ( HCC) documented in this encounter Care Teams Digital Content Marketing Manager Relationship Specialty Start Date End Date Elsewhere, Pcp PCP - General Family Medicine 01/30/21 documented as of this encounter
--- OUTSIDE RECORDS SUMMARY | 2022-01-15 09:47 | XMS_ITS | Clinical Summary ---
:1950 Author Organization [facility] [place] [address] Care Team Providers Name Role Phone Gilberto [...] Type Group BLUE CROSS MR BLUE CROSS [id number] [address]en [address] [address] [place] [facility], [place] MR PB ONLY [id number] (Home) [place] [address] Care Teams School Physical Therapist Relationship Specialty Start Date End Date Gilberto Cho MD PCP - General Family Practice 03/17/[address] [place] [address]
--- OUTSIDE RECORDS SUMMARY | 2022-01-15 09:47 | XMS_ITS | Encounter Summary ---
:1950 Author Organization [facility] Address [address] [place] [address] Care Team Providers Name Role Phone Elsewhere, Pcp Primary Care Provider Unavailable Reason for Referral Outpatient (Routine) - Authorized Specialty Diagnoses / Procedures Referred By Contact Refer red To Contact Radiation Oncology Yenny Suarez P.A.-C., JAMIE S [facility] [address] [place] [phone] Referral ID Status Reason Start Date Expiration Date Visits V isits Requested Authorized [id number] Authorized 12/23/2021 12/22/2024 1 1 Scheduling Instructions PSA and testosterone prior at [facility] [place]; please schedule before patient's next leuprolide injection at [facility] (due around 07/17/22) Outpatient (Routine) - Closed Specialty Diagnoses / Procedures Referred By Contact Refer red To Contact Radiation Oncology London George [facility] .D. [facility] Region [address] [place] [phone] Referral ID Status Reason Start Date Expiration Date Visits Requ ested Visits Authorized [id number] Closed 09/18/2021 09/18/2022 1 1 Scheduling Instructions Please schedule 2-3 days after [facility] lab a ppointment Reason for Visit Outpatient (Routine) - Closed Specialty Diagnoses / Procedures Referred By Contact Refer red To Contact Radiation Oncology London George M .D. [facility] Region [address] [place] [place] [phone] Referral ID Status Reason Start Date Expiration Date Visits Requ ested Visits Authorized [id number] Closed 09/18/2021 09/18/2022 1 1 Encounter Details Date Type Department Care Team Description 12/23/2021 - Hospital Encounter Department of Rom George rostate Specific Antigen Following Treatment For Malignant Cancer Of Prostate (Primary Dx); 12/27/2021 Radiation Oncology London Costello M.D. Secondary Malignant Neoplasm Intrapelvic Lymph Node (HCC) in [address] [facility] [address] [place], [place] [phone] (Work) [phone] Social History Tobacco Use Types Packs/Day Years [...] 06/27/2021 relatives? How often do you attend faith or mu-ism 1 to 4 times per year 06/27/2021 services? Do you belong to any clubs or organizations such No 06/27/2021 as faith groups, unions, fraternal or athletic groups, or [...] Sign Reading Time Taken Comments Blood Pressure 143/73 12/23/2021 8:58 AM CDT Pulse 61 12/23/2021 8:58 AM CDT Temperature 36.9 ??C (98.4 ??F) 12/23/2021 8:58 AM CDT Respiratory Rate - - Oxygen Saturation - - Inhaled Oxygen Concentration - - Weight 83.8 kg (184 lb 11.9 oz) 12/23/2021 8:58 AM CDT Height - - Body Mass Index 29.34 01/30/2021 11:48 AM CUSTOMER SERVICE ADVISOR documented in this encounter Medications at Time [...] Primary Malignant daily. Neoplasm Of Prostate (HCC) spironolactone Take 25 mg by mouth 0 12/14/2021 (ALDACTONE) 25 mg tablet daily. acetaminophen (TYLENOL) Take 2 tablets 0 02/01/20 [...] of this encounter Progress Notes Yenny Suarez P.A.-Rima., M.S. - 12/23/2021 9:00 AM CDT SUBJECTIVE DIAGNOSIS 1. Rising Prostate Specific Antigen Following Treatment For Malignant Cancer Of Prostate 2. Secondary Malignant Neoplasm Intrapelvic Lymph Node (HCC) SUPERVISED BY: London George M.D. ([id number]) HISTORY OF PRESENT ILLNESS Mr. Cory Barton is a 71-year-old male with persistently positive PSA following prostatectomy. He completed salvage radiotherapy with a long course of ADT (aiming for 18-36 months of androgen deprivation therapy) on September 18, 2021. His oncologic history is as follows: Oncology History Overview Note January 30, 2021: [...] carcinoma. B. Prostate gland, radical prostatectomy: Adenocarcinoma (Valencia pattern 4+5, grade group 5) is [...] Group and Valencia Score Grade Group 3 (Roseburg Score 4+5=9) Minor Tertiary Pattern 5 (less [...] patient would like to pursue radiotherapy in [place]. A referral was placed. He left the arrangementof ADT and referral to Medical Oncology to Dr. George. 07/30/2021 - Biological/Targeted/Hormone Therapy 07/30/2021: Bicalutamide 50 mg daily for 3 weeks 08/05/2021: Leuprolide 22.5 mg injection at [facility]. 10/29/2021: Leuprolide 22.5 mg injection at [facility]. 08/05/2021 - Radiation Therapy 6400 cGy in 32 fractions to the prostate fossa and 4500 cGy in 25 fractions to the pelvic lymph nodes with an integrated or sequential boost to the choline avid lymph nodes. Radiation Therapy Treatment Details (Noted on 07/25/2021) Site: Prostate - Bed Technique: No technique specified Goal: Curative Planned Treatment Start Date: 08/05/2021 08/07/2021 Imaging DEXA bone density scan demonstrated osteopenia. T-score of -1.9 in the right and left femoral neck. 09/12/2021 Other PSA 0.37 ng/mL 10/14/2021 - Biological/Targeted/Hormone Therapy Abiraterone and prednisone initiated under the care of Dr. White at [facility]. 11/05/2021 Other 11/05/2021: PSA <0.06 ng/mL 12/18/2021: PSA <0.06 ng/mL INTERVAL HISTORY The patient was seen and examined today with Dr. George. The patient reports doing well overall. He reports good energy levels overall and he is staying active. He reports good urination. He does have urinary frequency. He denies urinary urgency, incontinence, dysuria, or hematuria. He has nocturia x 4. He reports that this is not bothersome to him and he is able to fall back asleep easily. He reports normal bowel movements. He denies diarrhea. He denies rectal bleeding. He denies new or persistent bone pain. He reports mild hot flashes that are overall manageable. He has not been gaining weight. He is taking calcium and vitamin D supplementation as recommended. AUA SYMPTOM INDEX: 07/30/21: 4 12/23/21: 9 (0, 4, 0, 1, 0, 0, 4) IIEF-5 QUESTIONNAIRE: 07/30/21: 5 12/23/21: 5 (1, 1, 1, 1, 1) REVIEW OF SYSTEMS Review of systems was negative except as documented above. PATIENT REPORTED SYMPTOM SCREEN FATIGUE (Scale: 0 = no fatigue; 10 = worst fatigue you can imagine): 0 PAIN (Scale: 0 = no pain; 10 = worst pain you can imagine): 0 OVERALL QUALITY OF LIFE (Scale: 0 = as bad as can be; 10 = as good as can be): 10 OBJECTIVE BP 143/73 (BP Location: Right arm, Patient Position: Sitting, Cuff Size: Regular) Pulse 61 Temp 36.9 ??C (Temporal) Wt 83.8 kg BMI 29.34 kg/m?? PHYSICAL EXAM GENERAL: Alert and oriented in no apparent distress. [...] daily for 3 weeks on July 30, 2021;leuprolide 22.5 mg injection on August 05, 2021 at [facility]; leuprolide 22.5 mg injection onOctober 29, 2021 with a plan for 24 months of therapy #4 Stress urinary incontinence following prostatectomy, scant in amount #5 Erectile dysfunction preceding prostatectomy #6 Salvage intensity modulated radiotherapy to prostate fossa, PET + pelvic lymph nodes initiated onAugust 05, 2021; completed on September 18, 2021 #7 Osteopenia on bone density scan from August 07, 2021 #[address] Arnold on August 08, 2021 and initiated on October 14, 2021 The patient has recovered well overall following radiation therapy, now 3 months from treatment completion. He reports urinary frequency and nocturia as his only side effect following prostatectomy andsalvage radiation therapy, which is overall manageable. We reviewed his PSA result of less than 0.06ng/mL. He is continuing with ADT with leuprolide and was also initiated on abiraterone and prednisone, currently under the care of Dr. White at [facility]. He reports tolerating these treatments well overall. He is experiencing mild hot flashes that are overall manageable. He was found to have osteopenia on his previous bone density scan and is taking calcium and vitamin D supplementation. He is due for his next leuprolide injection on January 22, 2022. The patient will be on a trip to [place] from January 22 - 2021. We will order for him to receive his next injection at [facility] and he would like to receive a 45 mg (6 month) injection this time. We will then order for PSA and testosterone lab work and a follow-up visit here in June 2022 prior to his next injection. The patient will also be due for a repeat bone density scan in July 2022. He will contact us sooner with questions or concerns. He verbally expressed his understanding of the plan. EDUCATION Ready to learn, no apparent learning barriers were identified; learning preferences include listening. Explained diagnosis and treatment plan; patient expressed understanding of the content. I personally spent 34 minutes in care of the patient today. Time includes both non face to face and face to face patient care. Signed by: Yenny Suarez P.A.-C., M.S. 12/23/2021 11:14 AM CDT [facility] [address] [place] [address] Associated attestation - London George M.D. - 12/27/2021 4:31 PM CDT I saw and evaluated the patient and participated in the [place] portions of the service. I reviewed the documentation of Yenny Suarez P.A.-C. and agree with the findings and plan. The patient appears well onexam. He is doing well now 3 months out from salvage radiotherapy. He remains on ADT and his PSA is u ndetectable. He will have another 6 month Eligard injection at [facility] on January 22, 2022. We will see him in follow-up in June 2022 prior to his next injection with pre-visit labs. Patient verbalized satisfaction with this plan. I spent a total of 10 minutes caring for this patient both [id number] and non ifiv-hy-zgee time. Signed by: London George M.D. 12/27/21 4:31 PM CDT [facility] [place] documented in this encounter Plan of Treatment Scheduled Orders Name Type Priority Associated Diagnoses Order S chedule PSA (Prostate-Specific Lab Routine Rising Prostate Sp ecific Expected: 07/14/2022 Antigen), Diagnostic Antigen Following (A pproximate), Treatment For Malignant Expi res: 03/25/2023 Cancer Of Prostate Testosterone, Total by Lab Routine Rising Prostate Sp ecific Expected: 07/14/2022 Mass Spectrometry, Serum Antigen Followin g (Approximate), Treatment For Malignant Expi res: 03/25/2023 Cancer Of Prostate Scheduled Referrals Name Type Priority Associated Order Schedule Diagnoses Radiation Oncology Outpatient Referral Routine On ce for 1 office visit Occurrences sta rting (clinic) 12/23/2021 unti l 12/23/2021 Radiation Oncology Outpatient Referral Routine Ex pected: 07/16/2022 office visit (Approximate), (clinic) Expires: 2022 documented as of this encounter Visit Diagnoses Diagnosis Rising Prostate Specific Antigen Followi ng Treatment For Malignant Cancer Of Prostate - Primary Secondary Malignant Neoplasm Intrapelvic Lymph Node (HCC) documented in this encounter Care Teams Journeyman Pipefitter Relationship Specialty Start Date End Date Elsewhere, Pcp PCP - General Family Medicine 01/30/21 documented as of this encounter
--- OUTSIDE RECORDS SUMMARY | 2022-01-15 09:47 | XMS_ITS ---
:1950 Author Organization [facility] Address [address] [place] [address] Care Team Providers Name Role Phone Elsewhere, [...] in 5 ye ars Current Oncology Plans LEUPROLIDE ACETATE EVERY 24 WEEKSPlan Start Date:01/22/2022 Plan Provider:Yenny Suarez P.A.-C., M.S. Linked Problems Secondary Malignant Neoplasm Intrapelvic Lymph Node (HCC)Rising Prostate Specific Antigen Following Treatment For Malignan t Cancer Of ProstatePrimary Malignant Neoplasm Of Prostate (HCC) Treatment Medications No medications scheduled. Past Plans Hem/Onc Therapy Plan 1 Plan Name Start Date Discontinue Date Treatment Discontinue Plan Medications Reason Provider Leuprolide 07/30/2021 12/23/2021 No medications Therapy Complete Cristobal stra, Acetate Every scheduled. London Costello [address] Solorio Radiation Treatments Plan Last Treated Elapsed Days Fractions Prescribed Prescribed Total On Treated Fraction Dose Dose [id number] 09/18/2021 44 7 of 7 200 cGy 1,400 cGy S [id number] 09/09/2021 35 25 of 25 200 cGy 5,000 cGy Reference Point Last Treated On Elapsed Days Session Dose Total Dos e [id number] 09/18/2021 44 200 cGy 6,400 cGy
--- OUTSIDE RECORDS SUMMARY | 2022-01-15 09:47 | XMS_ITS | Encounter Summary ---
:1950 Author Organization [facility] Address [address] [place] [address] Care Team Providers Name Role Phone Elsewhere, Pcp Primary Care Provider Unavailable Encounter Details Date Type Department Care Team Description 09/18/2021 Documentation Department of Radiation London George, Oncology in [facility] [address] [facility] [address] [place] [phone] (Wo rk) Social History Tobacco Use Types [...] How often do you attend caodaism or shinto 1 to 4 times per year 06/27/2021 [...] the highest level of school Associate degree: [employer] program 06/27/2021 you have completed or the highest degree you have received? Sex Assigned at Date Recorded Male 06/27/2021 1:28 PM CDT documented as of this encounter Miscellaneous Notes Radiation Completion Notes - Chey Mcghee R.N. - 09/18/2021 11:59 PM CDT DIAGNOSIS: 1. Primary Malignant Neoplasm Of Prostate (HCC) Attending Physician: London George M.D. ([id number]) Treatment Intent: Curative Concomitant Therapy: Hormonal Therapy Single Plan Treatment Course: 1xProstBed Plan ID Fractions Dose / Fraction (cGy) Dose Treated (cGy) Dose Planned (cGy) First Treatment Last Treatment Elapsed Days [id number] 200 5000 5000 08/05/2021 09/09/2021 35 [id number] 200 1400 1400 09/10/2021 09/18/2021 8 Treatment [...] We will check PSA and testosterone at [facility] a few days before follow up visit. Signed by: Chey Mcghee R.N., 2021 3:33 PM CDT [facility] [address] [place], [place] [id number] documented in this encounter Plan of Treatment Not on filedocumented as of this encounter Visit Diagnoses Diagnosis Primary Malignant Neoplasm Of Prostate ( HCC) - Primary documented in this encounter Care Teams Glue Machine Operator Relationship Specialty Start Date End Date Elsewhere, Pcp PCP - General Family Medicine 01/30/21 documented as of this encounter
--- OUTSIDE RECORDS SUMMARY | 2022-01-15 09:47 | XMS_ITS | Encounter Summary ---
:1950 Author Organization [facility] Address [address] [place] [address] Care Team Providers Name Role Phone Elsewhere, Pcp Primary Care Provider Unavailable Reason for Visit Reason Comments Labs Only Encounter Details Date Type Department Care Team Description 11/18/2021 Clinical Communication Department of Elly Cohen Labs Only Oncology in [place], [place] [address] [facility] [address] [place] [phone] Social History Tobacco Use Types Packs/Day Years [...] How often do you attend yazdanism or sikh 1 to 4 times per [...] the highest level of school Associate degree: [employer] program 06/27/2021 you have completed or the highest degree you have received? Sex Assigned at Date Recorded Male 06/27/2021 1:28 PM CDT documented as of this encounter Miscellaneous Notes Telephone Encounter - Nayely Loza M.S.N., R.N. - 11/19/2021 9:03 AM CDT Labs verified. He is receiving care in [place], Dr. White managing. No further action needed. Telephone Encounter - Elyssa Tinoco - 11/19/2021 7:53 AM CDT Labs have been entered and are ready for review. documented in this encounter Plan of Treatment Not on filedocumented as of this encounter Procedures Procedure Name Priority Date/Time Associated Diagnosis Comme nts HEMATOLOGY/ONCOLOGY Routine 11/18/2021 9:28 AM Re sults for this - BLOOD, EXTERNAL CDT procedure are in LAB RESULTS the results section. documented in this encounter Results (ABNORMAL) Hematology/Oncology - Blood, External Lab Results (11/18/2021 9:28 AM CDT) P athologist Signature EXT Sodium 143 135 - 149 OTHER mmol/L (SPECIFY IN FOREST ECOLOGIST) EXT Potassium 3.1 (A) 3.6 - 5.1 OTHER (SPECIFY IN FOREST ECOLOGIST) EXT Calcium, 8.5 8.4 - 10.6 OTHER Total (SPECIFY IN FOREST ECOLOGIST) EXT Creatinine 1.0 0.5 - 1.5 OTHER mg/dL (SPECIFY IN FOREST ECOLOGIST) EXT Chloride 109 96 - 114 OTHER (SPECIFY IN FOREST ECOLOGIST) EXT BUN (Blood 22 7 - 30 OTHER Urea Nitrogen) (SPECIFY IN FOREST ECOLOGIST) Specimen (Source) Anatomical Collection Method Collection Time Re ceived Time Location / / Volume Laterality Blood 11/18/2021 9:28 AM CDT Narrative This result has an attachment that is no t available. Historical Provider LAB BLOOD NON ADD-ON Performing Organization Address City/State/ZIP Code Phon e Number OTHER (SPECIFY IN FOREST ECOLOGIST) OTHER (SPECIFY IN FOREST ECOLOGIST) N/A documented in this encounter Visit Diagnoses Not on filedocumented in this encounter Care Teams Smokehouse Worker Relationship Specialty Start Date End Date Elsewhere, Pcp PCP - General Family Medicine 01/30/21 documented as of this encounter
--- OUTSIDE RECORDS SUMMARY | 2022-01-15 09:47 | XMS_ITS | Clinical Summary ---
:1950 Author Organization [facility] Address [address] [place] [address] Care Team Providers Name Role Phone Elsewhere, Pcp Primary Care Provider Unavailable Source Comments Patient records contain information from all sites at [facility]. For routine questions regarding patient records, call [phone] during business hours, M-F 8:00 AM - 5:00 PM Central Time. Record requests for emergency care only can be directed to [phone] at any time.[facility] Allergies No known active allergies Medications Medication [...] Additional Information Patient not taking. Reported on 12/23/2021 abiraterone (ZYTIGA) 250 mg Take 4 tablets 120 tablet 11 2021 Active tabletIndications: Primary (1,000 mg total) Malignant Neoplasm Of by mouth daily. Prostate (HCC) Take on an empty stomach (1 hour before or 2 hours after food). predniSONE (DELTASONE) 5 mg Take 1 tablet (5 90 tablet 3 08/19 Active tabletIndications: Primary mg total) by Malignant Neoplasm Of mouth daily. Prostate (HCC) spironolactone (ALDACTONE) Take 25 mg by 0 2 Active 25 mg tablet mouth daily. sulfamethoxazole-trimethopr TAKE 1 TABLET BY 6 tablet 0 01/31 Active im (BACTRIM DS) 800-160 mg MOUTH TWO TIMES A 2 per tablet DAY FOR 3 DAYS; BEGIN ONE DAY PRIOR TO CATHETER REMOVAL Active Problems Problem Noted Date Secondary Malignant [...] Date Type Specialty Care Team Description 12/23/2021 - Hospital Encounter Radiation London George Rising Prostate Specific Antigen Following Treatment For Malignant Cancer Of Prostate (Primary Dx); 12/27/2021 Oncology Gilmar Costello. 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 from Last 3 Months Immunizations Name Administration [...] How often do you attend mormonism or christian 1 to 4 times per [...] highest level of school Associate degree: academ [employer] program 06/27/2021 you have completed or the highest degree you have received? Sex Assigned at Date Recorded Male 06/27/2021 1:28 PM CDT Last Filed Vital Signs Vital Sign Reading Time Taken Comments Blood Pressure 143/73 12/23/2021 8:58 AM CDT Pulse 61 12/23/2021 8:58 AM CDT Temperature 36.9 ??C (98.4 ??F) 12/23/2021 8:58 AM CDT Respiratory Rate 15 01/31/2021 12:30 PM AIR SUPPORT OPERATIONS OPERATOR Oxygen Saturation 93% 01/31/2021 12:30 PM AIR SUPPORT OPERATIONS OPERATOR Inhaled Oxygen Concentration - - Weight 83.8 kg (184 lb 11.9 oz) 12/23/2021 8:58 AM CDT Height 169 cm (5' 6.54) 01/30/2021 11:48 AM AIR SUPPORT OPERATIONS OPERATOR Body Mass Index 29.34 01/30/2021 11:48 AM AIR SUPPORT OPERATIONS OPERATOR Plan of Treatment Health Maintenance Due Date Last Done Comments Abdominal Aortic Aneurysm (AAA) [address] Colonography 1950 Cologuard 1950 Colonoscopy 1950 Colorectal Cancer Surveillance 1950 Hepatitis C Screening 1950 Depression Screening (Annual 03/02/2021 PHQ-2) Office Visit for Blood Pressure 04/23/2021 01/21/2021 Check / Re-check Fasting Glucose for Diabetes 01/31/2022 01/31/2021, 021 Screening Creatinine Level 11/18/2022 11/18/2021, 01/31/2021, 01/21/2021 Potassium Level 11/18/2022 11/18/2021, 01/31/2021, 01/21/2021 Sodium Level 11/18/2022 11/18/2021, 01/31/2021, 01/21/2021 DTaP,Tdap,and Td Vaccines (2 - Td 02/17/2027 02/17/2017 or Tdap) Pneumococcal vaccine (65+ years) Completed 07/21/2017, Zoster Vaccines Completed 03/07/2019, 08/04/2018, 11/02/2013 Fall Risk Screen (Annual) Completed 08/12/2021 COVID-19 Vaccine Completed 11/28/2021, 07/09/2021, 12/25/2020, Additional history exists Influenza Vaccine Completed 12/13/2021, 11/11/2020, 11/21/2019, Additional history exists Medical Devices Implanted Type Area Seismic Interpreter Device Identifier Shelf Model / Expiration Serial / Date Lot Clp Hmol Plmr Lg - [id number] Hardware [id number] 2 [id number] 09/23/2025 [id number] / Implanted: Qty: 1 on 01/30/2021 by Lenny Gaspar M.D. at [facility] e.g. / pins/screws/ [id number] Procedures Procedure Name Priority Date/Time Associated Diagnosis Comme nts HEMATOLOGY/ONCOLOGY Routine 11/18/2021 9:28 AM Re sults for this - BLOOD, EXTERNAL CDT procedure are in LAB RESULTS the results section. from Last 3 Months Results (ABNORMAL) Hematology/Oncology - Blood, External Lab Results (11/18/2021 9:28 AM CDT) P athologist Signature EXT Sodium 143 135 - 149 OTHER mmol/L (SPECIFY IN BUTCHER HELPER) EXT Potassium 3.1 (A) 3.6 - 5.1 OTHER (SPECIFY IN BUTCHER HELPER) EXT Calcium, 8.5 8.4 - 10.6 OTHER Total (SPECIFY IN BUTCHER HELPER) EXT Creatinine 1.0 0.5 - 1.5 OTHER mg/dL (SPECIFY IN BUTCHER HELPER) EXT Chloride 109 96 - 114 OTHER (SPECIFY IN BUTCHER HELPER) EXT BUN (Blood 22 7 - 30 OTHER Urea Nitrogen) (SPECIFY IN BUTCHER HELPER) Specimen (Source) Anatomical Collection Method Collection Time Re ceived Time Location / / Volume Laterality Blood 11/18/2021 9:28 AM CDT Narrative This result has an attachment that is no t available. Historical Provider LAB BLOOD NON ADD-ON Performing Organization Address City/State/ZIP Code Phon e Number OTHER (SPECIFY IN BUTCHER HELPER) OTHER (SPECIFY IN BUTCHER HELPER) N/A from Last 3 Months Insurance Payer Benefit Plan Subscriber ID Effective Phone Address Typ e / Group Dates MEDICARE MEDICARE A [id number] 2016-Pres [phone] [place] [address] BLUE CROSS BCBS VIEJAS [id number] 2016-Pre [phone] PO DIMITRI X Cost Share [employer] BLUE COST sent [phone] [place] [address] Advance Directives For more information, please contact: [phone] Latest Code Status on File Code Status Date Activated Date Inactivated Comments Full Code 01/30/2021 9:38 PM 01/31/2021 4:28 PM Question Answer Comments Full Code: Discussed Care Teams Airplane Refueler Relationship Specialty Start Date End Date Elsewhere, Pcp PCP - General Family Medicine 01/30/21
--- OUTSIDE RECORDS SUMMARY | 2022-01-15 09:48 | XMS_ITS | Encounter Summary ---
:1950 Author Organization [facility] Address [address] [place] [address] Care Team Providers Name Role Phone Elsewhere, Pcp Primary Care Provider Unavailable Encounter Details Date Type Department Care Team Description 09/03/2021 Hospital Encounter Department of Radiation La George, Oncology in [facility] [address] [facility] [address] [place] [phone] Social History Tobacco Use Types Packs/Day Years [...] 06/27/2021 relatives? How often do you attend baptism or caodaism 1 to 4 times per year 06/27/2021 services? Do you belong to any clubs or organizations such No 06/27/2021 as baptism groups, unions, fraternal or athletic groups, or [...] the highest level of school Associate degree: [employer] program 06/27/2021 you have completed or the [...] Primary Malignant daily. Neoplasm Of Prostate (HCC) sulfamethoxazole-trimetho TAKE 1 TABLET BY 6 tablet 0 04/202001/31/2022 prim (BACTRIM DS) 800-160 MOUTH TWO TIMES A mg per tablet DAY FOR 3 DAYS; BEGIN ONE DAY PRIOR TO CATHETER REMOVAL triamterene-hydroCHLOROth Take 1 tablet by 0 07/31 iazide (MAXZIDE-25) mouth daily. 37.5-25 mg per tablet documented as of this encounter Plan of Treatment Not on filedocumented as of this encounter Visit Diagnoses Not on filedocumented in this encounter Care Teams Meteorology Professor Relationship Specialty Start Date End Date Elsewhere, Pcp PCP - General Family Medicine 01/30/21 documented as of this encounter
--- OUTSIDE RECORDS SUMMARY | 2022-01-15 09:48 | XMS_ITS | Encounter Summary ---
:1950 Author Organization [facility] Address [address] [place] [address] Care Team Providers Name Role Phone Elsewhere, Pcp Primary Care Provider Unavailable Encounter Details Date Type Department Care Team Description 09/11/2021 Hospital Encounter Department of Radiation La George, Oncology in [facility] [address] [facility] [address] [place] [phone] Social History Tobacco Use Types Packs/Day Years [...] 06/27/2021 relatives? How often do you attend sikhism or church 1 to 4 times per year 06/27/2021 services? Do you belong to any clubs or organizations such No 06/27/2021 as sikhism groups, unions, fraternal or athletic groups, or [...] the highest level of school Associate degree: [employer] program 06/27/2021 you have completed or the [...] on filedocumented in this encounter Care Teams Proofer Prepress Relationship Specialty Start Date End Date Elsewhere, Pcp PCP - General Family Medicine 01/30/21 documented as of this encounter
--- OUTSIDE RECORDS SUMMARY | 2022-01-15 09:48 | XMS_ITS | Encounter Summary ---
:1950 Author Organization [facility] Address [address] [place] [address] Care Team Providers Name Role Phone Elsewhere, Pcp Primary Care Provider Unavailable Encounter Details Date Type Department Care Team Description 09/05/2021 Hospital Encounter Department of Radiation La George, Oncology in [facility] [address] [facility] [address] [place] [phone] Social History Tobacco Use Types Packs/Day Years [...] How often do you attend congregational or oriental orthodox 1 to 4 times per year 06/27/2021 [...] the highest level of school Associate degree: [employer] program 06/27/2021 you have completed or the [...] on filedocumented in this encounter Care Teams Etch Operator Semiconductor Wafers Relationship Specialty Start Date End Date Elsewhere, Pcp PCP - General Family Medicine 01/30/21 documented as of this encounter
--- OUTSIDE RECORDS SUMMARY | 2022-01-15 09:48 | XMS_ITS | Encounter Summary ---
:1950 Author Organization [facility] Address [address] [place] [address] Care Team Providers Name Role Phone Elsewhere, Pcp Primary Care Provider Unavailable Encounter Details Date Type Department Care Team Description 09/04/2021 Hospital Encounter Department of Radiation La George, Oncology in [facility] [address] [facility] [address] [place] [phone] Social History Tobacco Use Types Packs/Day Years [...] How often do you attend zoroastrian or uatsdin 1 to 4 times per year 06/27/2021 [...] the highest level of school Associate degree: [employer] program 06/27/2021 you have completed or the [...] on filedocumented in this encounter Care Teams Technical Consultant Relationship Specialty Start Date End Date Elsewhere, Pcp PCP - General Family Medicine 01/30/21 documented as of this encounter
--- OUTSIDE RECORDS SUMMARY | 2022-01-15 09:48 | XMS_ITS | Encounter Summary ---
:1950 Author Organization [facility] Address [address] [place] [address] Care Team Providers Name Role Phone Elsewhere, Pcp Primary Care Provider Unavailable Reason for Referral Radiation Therapy (Routine) - Authorized Specialty Diagnoses / Procedures Referred By Contact Refer red To Contact Diagnoses Primary Malignant Neoplasm Of Prostate (HCC) [place] George [facility]. [facility] Procedures Management Visit [address] [place] [phone] Referral ID Status Reason Start Date Expiration Date Visits V isits Requested Authorized [id number] Authorized 07/25/2021 07/25/2022 10 10 Reason for Visit Radiation Therapy (Routine) - Authorized Specialty Diagnoses / Procedures Referred By Contact Refer red To Contact Diagnoses Primary Malignant Neoplasm Of Prostate (HCC) [place] George [facility].D. [facility] Procedures Management Visit [address] [place] [phone] Referral ID Status Reason Start Date Expiration Date Visits V isits Requested Authorized [id number] Authorized 07/25/2021 07/25/2022 10 10 Encounter Details Date Type Department Care Team Description 09/03/2021 Hospital Encounter Department of Faith Mcdermott Malignant Radiation Oncology Osmin Prakash Neoplasm Of Prostate in [place], [address] [facility] ([facility] [place], [place] [address] [facility] [address] [place], [place] [phone] (Work) [phone] Social History Tobacco Use Types Packs/Day Years [...] How often do you attend taoism or catholic 1 to 4 times per [...] highest level of school Associate degree: academ [email or web address] program 06/27/2021 you have completed or the [...] Body Mass Index 30.36 01/30/2021 11:48 AM TERRITORY MANAGER GENERAL SALES documented in this encounter Medications at Time [...] (cGy) First Treatment Last Treatment Elapsed Days [id number] 200 4000 5000 08/05/2021 08/30/2021 Course Summary 08/05/2021 08/30/2021 The patient was [...] 22.5 mg injection??on August 05, 2021 at [facility] #4 Stress urinary incontinence following prostatectomy, [...] with radiation treatment as planned. Radiation Oncology [place] can be contacted atanytime for any questions [...] HCC) documented in this encounter Care Teams Applications Engineer Relationship Specialty Start Date End Date Elsewhere, Pcp PCP - General Family Medicine 01/30/21 documented as of this encounter
--- OUTSIDE RECORDS SUMMARY | 2022-01-15 09:48 | XMS_ITS | Encounter Summary ---
:1950 Author Organization [facility] Address [address] [place] [address] Care Team Providers Name Role Phone Elsewhere, Pcp Primary Care Provider Unavailable Encounter Details Date Type Department Care Team Description 09/13/2021 Hospital Encounter Department of Radiation La George, Oncology in [facility] [address] [facility] [address] [place] [address] [phone] Social History Tobacco Use Types Packs/Day Years [...] How often do you attend moravian or episcopalian 1 to 4 times per [...] the highest level of school Associate degree: [employer] program 06/27/2021 you have completed or the [...] on filedocumented in this encounter Care Teams Sales Solutions Associate Relationship Specialty Start Date End Date Elsewhere, Pcp PCP - General Family Medicine 01/30/21 documented as of this encounter
--- OUTSIDE RECORDS SUMMARY | 2022-01-15 09:48 | XMS_ITS | Encounter Summary ---
:1950 Author Organization [facility] Address [address] [place] [address] Care Team Providers Name Role Phone Elsewhere, Pcp Primary Care Provider Unavailable Encounter Details Date Type Department Care Team Description 08/29/2021 Hospital Encounter Department of Radiation La George, Oncology in [facility] [address] [facility] [address] [place] [phone] Social History Tobacco Use Types Packs/Day Years [...] 06/27/2021 relatives? How often do you attend catholic or evangelical 1 to 4 times per year 06/27/2021 services? Do you belong to any clubs or organizations such No 06/27/2021 as catholic groups, unions, fraternal or athletic groups, or [...] the highest level of school Associate degree: [employer] program 06/27/2021 you have completed or the [...] on filedocumented in this encounter Care Teams Aircraft Cabin Cleaner Relationship Specialty Start Date End Date Elsewhere, Pcp PCP - General Family Medicine 01/30/21 documented as of this encounter
--- OUTSIDE RECORDS SUMMARY | 2022-01-15 09:48 | XMS_ITS | Encounter Summary ---
:[address] [facility] Address [address] [place] [address] Care Team Providers Name Role Phone Elsewhere, Pcp Primary Care Provider Unavailable Reason for Referral Radiation Therapy (Routine) - Authorized Specialty Diagnoses / Procedures Referred By Contact Refer red To Contact Diagnoses Primary Malignant Neoplasm Of Prostate (HCC) London George M.D. [facility] Procedures Management Visit [address] [place] [phone] Referral ID Status Reason Start Date Expiration Date Visits V isits Requested Authorized [id number] Authorized 07/25/2021 07/25/2022 10 10 Reason for Visit Radiation Therapy (Routine) - Authorized Specialty Diagnoses / Procedures Referred By Contact Refer red To Contact Diagnoses Primary Malignant Neoplasm Of Prostate (HCC) London George M.D. [facility] Procedures Management Visit [address] [place] [phone] Referral ID Status Reason Start Date Expiration Date Visits V isits Requested Authorized [id number] Authorized 07/25/2021 07/25/2022 10 10 Encounter Details Date Type Department Care Team Description 09/11/2021 - Hospital Encounter Department of Ariel, Primary Malignant 09/12/2021 Radiation Oncology London Costello M.D. Neoplasm Of Prostate in [place], [address] [facility] ([facility] [place], [place] [address] [facility] [address] [place], [place] [phone] (Work) [phone] Social History Tobacco Use Types Packs/Day Years [...] How often do you attend buddhist or evangelical 1 to 4 times per [...] highest level of school Associate degree: academ [employer] program 06/27/2021 you have completed or the [...] Body Mass Index 30.29 01/30/2021 11:48 AM MANAGER WOMEN documented in this encounter Medications at Time [...] 6 (six) hours as needed for pain. sulfamethoxazole-trimetho TAKE 1 TABLET BY 6 tablet 0 04/202001/31/2022 prim (BACTRIM DS) 800-160 MOUTH TWO TIMES A mg per tablet DAY FOR 3 DAYS; BEGIN ONE DAY PRIOR TO CATHETER REMOVAL documented as of [...] (cGy) First Treatment Last Treatment Elapsed Days [id number] 200 5000 5000 08/05/2021 09/09/2021 35 [id number] 09/10/2021 09/11/2021 1 Treatment Site Summary 5400 [...] 22.5 mg injection??on August 05, 2021 at [facility] #4 Stress urinary incontinence following prostatectomy, [...] with radiation treatment as planned. Radiation Oncology [place] can be contacted at anytime for any [...] London George M.D. 09/12/2021 5:[address] [facility] [address] [place] [address] documented in this encounter Plan of Treatment Scheduled Orders Name Type Priority Associated Diagnoses Order S chedule Management Visit Radiation Oncology Routine Primary Malignant Once for 1 Neoplasm Of Prostate Occurre nces starting (HCC) 09/11/2021 unti l 09/11/2021 documented as of this encounter Visit Diagnoses Diagnosis Primary Malignant Neoplasm Of Prostate ( HCC) documented in this encounter Care Teams Inspector Rag Sorting Relationship Specialty Start Date End Date Elsewhere, Pcp PCP - General Family Medicine 01/30/21 documented as of this encounter
--- OUTSIDE RECORDS SUMMARY | 2022-01-15 09:48 | XMS_ITS | Encounter Summary ---
:1950 Author Organization [facility] Address [address] [place] [address] Care Team Providers Name Role Phone Elsewhere, Pcp Primary Care Provider Unavailable Encounter Details Date Type Department Care Team Description 09/17/2021 Hospital Encounter Department of Radiation La George, Oncology in [facility] [address] [facility] [address] [place] [address] [phone] Social History Tobacco Use Types Packs/Day Years [...] How often do you attend pentecostal or episcopalian 1 to 4 times per [...] the highest level of school Associate degree: [employer] program 06/27/2021 you have completed or [...] on filedocumented in this encounter Care Teams Tire Shop Manager Relationship Specialty Start Date End Date Elsewhere, Pcp PCP - General Family Medicine 01/30/21 documented as of this encounter
--- OUTSIDE RECORDS SUMMARY | 2022-01-15 09:48 | XMS_ITS | Encounter Summary ---
:1950 Author Organization [facility] Address [address] [place] [address] Care Team Providers Name Role Phone Elsewhere, Pcp Primary Care Provider Unavailable Encounter Details Date Type Department Care Team Description 09/06/2021 Hospital Encounter Department of Radiation La George, Oncology in [facility] [address] [facility] [address] [place] [address] [phone] Social History Tobacco Use Types Packs/Day Years [...] 06/27/2021 relatives? How often do you attend evangelical or yarsanism 1 to 4 times per year 06/27/2021 services? Do you belong to any clubs or organizations such No 06/27/2021 as evangelical groups, unions, fraternal or athletic groups, or [...] the highest level of school Associate degree: [employer] program 06/27/2021 you have completed or the [...] on filedocumented in this encounter Care Teams Devulcanizer Loader Relationship Specialty Start Date End Date Elsewhere, Pcp PCP - General Family Medicine 01/30/21 documented as of this encounter
--- OUTSIDE RECORDS SUMMARY | 2022-01-15 09:48 | XMS_ITS | Encounter Summary ---
:1950 Author Organization [facility] Address [address] [place] [address] Care Team Providers Name Role Phone Elsewhere, Pcp Primary Care Provider Unavailable Encounter Details Date Type Department Care Team Description 09/18/2021 Hospital Encounter Department of Radiation La George, Oncology in [facility] [address] [facility] [address] [place] [address] [phone] Social History Tobacco Use Types Packs/Day Years [...] How often do you attend presybeterian or mosque 1 to 4 times per year 06/27/2021 [...] the highest level of school Associate degree: [employer] program 06/27/2021 you have completed or the [...] on filedocumented in this encounter Care Teams Third Hand Relationship Specialty Start Date End Date Elsewhere, Pcp PCP - General Family Medicine 01/30/21 documented as of this encounter
--- OUTSIDE RECORDS SUMMARY | 2022-01-15 09:48 | XMS_ITS | Encounter Summary ---
:1950 Author Organization [facility] Address [address] [place] [address] Care Team Providers Name Role Phone Elsewhere, Pcp Primary Care Provider Unavailable Encounter Details Date Type Department Care Team Description 09/12/2021 Hospital Encounter Department of Radiation La George, Oncology in [facility] [address] [facility] [address] [place] [address] [phone] Social History Tobacco Use Types Packs/Day Years [...] How often do you attend advent or adventism 1 to 4 times per [...] or slept in a fci (including now)? Education Answer Date Recorded What is the highest level of school Associate degree: [employer] program 06/27/2021 you have completed or the [...] on filedocumented in this encounter Care Teams Restaurant Worker Relationship Specialty Start Date End Date Elsewhere, Pcp PCP - General Family Medicine 01/30/21 documented as of this encounter
--- OUTSIDE RECORDS SUMMARY | 2022-01-15 09:48 | XMS_ITS | Encounter Summary ---
:1950 Author Organization [facility] Address [address] [place] [address] Care Team Providers Name Role Phone Elsewhere, Pcp Primary Care Provider Unavailable Encounter Details Date Type Department Care Team Description 08/30/2021 Hospital Encounter Department of Radiation La George, Oncology in [facility] [address] [facility] [address] [place] [address] [phone] Social History Tobacco Use Types Packs/Day Years [...] How often do you attend taoist or baptist 1 to 4 times per [...] the highest level of school Associate degree: [employer] program 06/27/2021 you have completed or the [...] on filedocumented in this encounter Care Teams Pressure Washer Relationship Specialty Start Date End Date Elsewhere, Pcp PCP - General Family Medicine 01/30/21 documented as of this encounter
--- OUTSIDE RECORDS SUMMARY | 2022-01-15 09:48 | XMS_ITS | Encounter Summary ---
:1950 Author Organization [facility] Address [address] [place] [address] Care Team Providers Name Role Phone Elsewhere, Pcp Primary Care Provider Unavailable Encounter Details Date Type Department Care Team Description 08/27/2021 Hospital Encounter Department of Radiation La George, Oncology in [facility] [address] [facility] [address] [place] [address] [phone] Social History Tobacco Use Types Packs/Day Years [...] How often do you attend latter-day or synagogue 1 to 4 times per year 06/27/2021 [...] the highest level of school Associate degree: [employer] program 06/27/2021 you have completed or the [...] on filedocumented in this encounter Care Teams Owner Professional Engineer Relationship Specialty Start Date End Date Elsewhere, Pcp PCP - General Family Medicine 01/30/21 documented as of this encounter
--- OUTSIDE RECORDS SUMMARY | 2022-01-15 09:48 | XMS_ITS | Encounter Summary ---
:1950 Author Organization [facility] Address [address] [place] [address] Care Team Providers Name Role Phone Elsewhere, Pcp Primary Care Provider Unavailable Reason for Referral Radiation Therapy (Routine) - Authorized Specialty Diagnoses / Procedures Referred By Contact Refer red To Contact Diagnoses Primary Malignant Neoplasm Of Prostate (HCC) London George M.D. [facility] Procedures Management Visit [address] [place] [phone] Referral ID Status Reason Start Date Expiration Date Visits V isits Requested Authorized [id number] Authorized 07/25/2021 07/25/2022 10 10 Reason for Visit Radiation Therapy (Routine) - Authorized Specialty Diagnoses / Procedures Referred By Contact Refer red To Contact Diagnoses Primary Malignant Neoplasm Of Prostate (HCC) London George M.D. [facility] Procedures Management Visit [address] [place] [phone] Referral ID Status Reason Start Date Expiration Date Visits V isits Requested Authorized [id number] Authorized 07/25/2021 07/25/2022 10 10 Encounter Details Date Type Department Care Team Description 08/28/2021 - Hospital Encounter Department of Ariel, Primary Malignant 09/03/2021 Radiation Oncology London Costello M.D. 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 ([id number]) HISTORY OF PRESENT ILLNESS Mr. Cory Barton is a 70-year-old male with persistently positive PSA following prostatectomy. ??He is now undergoing salvage radiotherapy with a long course of ADT (aiming for 18-36 months ofandrogen deprivation therapy).? Treatment Course: 1xProstBed Plan ID Fractions Dose / Fraction (cGy) Dose Treated (cGy) Dose Planned (cGy) First Treatment Last Treatment Elapsed Days [id number] 200 3600 5000 08/05/2021 08/28/2021 23 Course [...] 22.5 mg injection??on August 05, 2021 at [facility] #4 Stress urinary incontinence following [...] continue with treatment as planned. Signed by: Lodnon George M.D. 09/03/21 9:38 AM CDT [facility] Radiation Therapy Center [place] documented in this encounter Plan of Treatment Scheduled Orders Name Type Priority Associated Diagnoses Order S chedule Management Visit Radiation Oncology Routine Primary Malignant Once for 1 Neoplasm Of Prostate Occurre nces starting (HCC) 08/28/2021 unti l 08/28/2021 documented as of this encounter Visit Diagnoses Diagnosis Primary Malignant Neoplasm Of Prostate ( HCC) documented in this encounter Care Teams News Content Specialist Relationship Specialty Start Date End Date Elsewhere, Pcp PCP - General Family Medicine 01/30/21 documented as of this encounter
--- OUTSIDE RECORDS SUMMARY | 2022-01-15 09:48 | XMS_ITS | Encounter Summary ---
:1950 Author Organization [facility] Address [address] [place] [address] Care Team Providers Name Role Phone Elsewhere, Pcp Primary Care Provider Unavailable Encounter Details Date Type Department Care Team Description 09/09/2021 Hospital Encounter Department of Radiation La George, Oncology in [facility] [address] [facility] [address] [place] [address] [phone] Social History Tobacco Use Types Packs/Day Years [...] 06/27/2021 relatives? How often do you attend anglican or temple 1 to 4 times per year 06/27/2021 services? Do you belong to any clubs or organizations such No 06/27/2021 as anglican groups, unions, fraternal or athletic groups, or [...] the highest level of school Associate degree: [employer] program 06/27/2021 you have completed or the [...] filedocumented in this encounter Care Teams Hand Upper And Bottom Lacer Relationship Specialty Start Date End Date Elsewhere, Pcp PCP - General Family Medicine 01/30/21 documented as of this encounter
--- OUTSIDE RECORDS SUMMARY | 2022-01-15 09:48 | XMS_ITS | Encounter Summary ---
:1950 Author Organization [facility] Address [address] [place] [address] Care Team Providers Name Role Phone Elsewhere, Pcp Primary Care Provider Unavailable Encounter Details Date Type Department Care Team Description 08/28/2021 Hospital Encounter Department of Radiation La George, Oncology in [facility] [address] [facility] [address] [place] [address] [phone] Social History Tobacco Use Types Packs/Day Years [...] 06/27/2021 relatives? How often do you attend confucianism or yazidi 1 to 4 times per year 06/27/2021 services? Do you belong to any clubs or organizations such No 06/27/2021 as confucianism groups, unions, fraternal or athletic groups, or [...] the highest level of school Associate degree: [employer] program 06/27/2021 you have completed or the [...] on filedocumented in this encounter Care Teams Automat Watcher Relationship Specialty Start Date End Date Elsewhere, Pcp PCP - General Family Medicine 01/30/21 documented as of this encounter
--- OUTSIDE RECORDS SUMMARY | 2022-01-15 09:48 | XMS_ITS | Encounter Summary ---
:1950 Author Organization [facility] Address [address] [place] [address] Care Team Providers Name Role Phone Elsewhere, Pcp Primary Care Provider Unavailable Encounter Details Date Type Department Care Team Description 09/10/2021 Hospital Encounter Department of Radiation La George, Oncology in [facility] [address] [facility] [address] [place] [address] [phone] Social History Tobacco Use Types Packs/Day Years [...] How often do you attend hindu or mandaeism 1 to 4 times per year 06/27/2021 [...] the highest level of school Associate degree: [employer] program 06/27/2021 you have completed or the [...] on filedocumented in this encounter Care Teams Small Business Sales Representative Relationship Specialty Start Date End Date Elsewhere, Pcp PCP - General Family Medicine 01/30/21 documented as of this encounter
--- OUTSIDE RECORDS SUMMARY | 2022-01-15 09:48 | XMS_ITS | Encounter Summary ---
:1950 Author Organization [facility] Address [address] [place] [address] Care Team Providers Name Role Phone Elsewhere, Pcp Primary Care Provider Unavailable Encounter Details Date Type Department Care Team Description 09/16/2021 Hospital Encounter Department of Radiation La George, Oncology in [facility] [address] [facility] [address] [place] [address] [phone] Social History Tobacco Use Types Packs/Day Years [...] How often do you attend anglican or congregation 1 to 4 times per [...] the highest level of school Associate degree: [employer] program 06/27/2021 you have completed or the [...] on filedocumented in this encounter Care Teams Hardware Engineering Manager Relationship Specialty Start Date End Date Elsewhere, Pcp PCP - General Family Medicine 01/30/21 documented as of this encounter
--- OUTSIDE RECORDS SUMMARY | 2022-01-15 09:49 | XMS_ITS | Encounter Summary ---
:1950 Author Organization [facility] Address [address] [place] [address] Care Team Providers Name Role Phone Elsewhere, Pcp Primary Care Provider Unavailable Reason for Referral Radiation Therapy (Routine) - Authorized Specialty Diagnoses / Procedures Referred By Contact Refer red To Contact Diagnoses Primary Malignant Neoplasm Of Prostate (HCC) London Goerge M.D. [facility] Procedures Management Visit [address] [place] [phone] Referral ID Status Reason Start Date Expiration Date Visits V isits Requested Authorized [id number] Authorized 07/25/2021 07/25/2022 10 10 Reason for Visit Radiation Therapy (Routine) - Authorized Specialty Diagnoses / Procedures Referred By Contact Refer red To Contact Diagnoses Primary Malignant Neoplasm Of Prostate (HCC) London George M.D. [facility] Procedures Management Visit [address] [place] [phone] Referral ID Status Reason Start Date Expiration Date Visits V isits Requested Authorized [id number] Authorized 07/25/2021 07/25/2022 10 10 Encounter Details Date Type Department Care Team Description 08/07/2021 - Hospital Encounter Department of Ariel, Primary Malignant 08/19/2021 Radiation Oncology London Costello M.D. Neoplasm Of Prostate in [place], [address] [facility] ([facility]) [place], [place] [address] [facility] [address] [place], [place] [phone] (Work) [phone] Social History Tobacco Use Types Packs/Day Years [...] 06/27/2021 relatives? How often do you attend uatsdin or moravian 1 to 4 times per year 06/27/2021 services? 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 ([id number]) HISTORY OF PRESENT ILLNESS Mr. Cory Barton is a 70 y.o. male with persistently positive PSA following prostatectomy. He is now undergoing salvage radiotherapy with long course of ADT (aiming for 18-36 months of androgen deprivation therapy). Treatment Course: 1xProstBed Plan ID Fractions Dose / Fraction (cGy) Dose Treated (cGy) Dose Planned (cGy) First Treatment Last Treatment Elapsed Days [id number] [id number] 08/05/2021 08/07/2021 2 Course Summary 08/05/2021 08/07/2021 [...] mg injection on August 05, 2021 at [facility], and a visit with Medical Oncology for [...] overall. He received leuprolide 22.5 mg injectionat [facility] on Thursday, August 05, 2021. He will [...] London George M.D. 08/19/2021 9:14 AM CDT [facility] Radiation Therapy Center [address] [place] [address] documented in this encounter Plan of Treatment Scheduled Orders Name Type Priority Associated Diagnoses Order S chedule Management Visit Radiation Oncology Routine Primary Malignant Once for 1 Neoplasm Of Prostate Occurre nces starting (HCC) 08/07/2021 unti alida 08/07/2021 documented as of this encounter Visit Diagnoses Diagnosis Primary Malignant Neoplasm Of Prostate ( HCC) documented in this encounter Care Teams Complaint Manager Relationship Specialty Start Date End Date Elsewhere, Pcp PCP - General Family Medicine 01/30/21 documented as of this encounter
--- OUTSIDE RECORDS SUMMARY | 2022-01-15 09:49 | XMS_ITS | Encounter Summary ---
:1950 Author Organization [facility] Address [address] [place] [address] Care Team Providers Name Role Phone Elsewhere, Pcp Primary Care Provider Unavailable Encounter Details Date Type Department Care Team Description 08/12/2021 Hospital Encounter Department of Radiation La George, Oncology in [facility] [address] [facility] [address] [place] [address] [phone] Social History Tobacco Use Types Packs/Day Years [...] How often do you attend christianity or yazidi 1 to 4 times per [...] the highest level of school Associate degree: [employer] program 06/27/2021 you have completed or [...] Day 0 05/18/2020 (LOPRESSOR) 50 mg tablet sulfamethoxazole-trimetho TAKE 1 TABLET BY 6 tablet [...] on filedocumented in this encounter Care Teams Knife Setter Relationship Specialty Start Date End Date Elsewhere, Pcp PCP - General Family Medicine 01/30/21 documented as of this encounter
--- OUTSIDE RECORDS SUMMARY | 2022-01-15 09:49 | XMS_ITS | Encounter Summary ---
:1950 Author Organization [facility] Address [address] [place] [address] Care Team Providers Name Role Phone Elsewhere, Pcp Primary Care Provider Unavailable Reason for Referral Radiation Therapy (Routine) - Authorized Specialty Diagnoses / Procedures Referred By Contact Refer red To Contact Diagnoses Primary Malignant Neoplasm Of Prostate (HCC) London George M.D. [facility] Procedures Management Visit [address] [place] [address] [phone] Referral ID Status Reason Start Date Expiration Date Visits V isits Requested Authorized [id number] Authorized 07/25/2021 07/25/2022 10 10 Reason for Visit Radiation Therapy (Routine) - Authorized Specialty Diagnoses / Procedures Referred By Contact Refer red To Contact Diagnoses Primary Malignant Neoplasm Of Prostate (HCC) London George M.D. [facility] Procedures Management Visit [address] [place] [address] [phone] Referral ID Status Reason Start Date Expiration Date Visits V isits Requested Authorized [id number] Authorized 07/25/2021 07/25/2022 10 10 Encounter Details Date Type Department Care Team Description 08/20/2021 Hospital Encounter Department of Faith Mcdermott Malignant Radiation Oncology Osmin Prakash Neoplasm Of Prostate in [place], [address] [facility] (HCC) [place], [place] [address] [facility] [address] [place], [place] [phone] (Work) [phone] Social History Tobacco Use Types Packs/Day Years [...] How often do you attend tenriism or oriental orthodox 1 to 4 times [...] highest level of school Associate degree: academ [employer] program 06/27/2021 you have completed or the [...] Body Mass Index 30.81 01/30/2021 11:48 AM 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 Radiation Oncology [place] can be contacted atany time for any [...] HCC) documented in this encounter Care Teams Work Force Advisor Relationship Specialty Start Date End Date Elsewhere, Pcp PCP - General Family Medicine 01/30/21 documented as of this encounter
--- OUTSIDE RECORDS SUMMARY | 2022-01-15 09:49 | XMS_ITS | Encounter Summary ---
:1950 Author Organization [facility] Address [address] [place] [address] Care Team Providers Name Role Phone Elsewhere, Pcp Primary Care Provider Unavailable Encounter Details Date Type Department Care Team Description 08/21/2021 Hospital Encounter Department of Radiation La George, Oncology in [facility] [address] [facility] [address] [place] [address] [phone] Social History Tobacco Use Types Packs/Day Years [...] How often do you attend temple or congregation 1 to 4 times per [...] the highest level of school Associate degree: [email or web address] program 06/27/2021 you have completed or the [...] on filedocumented in this encounter Care Teams Custom Tailor Relationship Specialty Start Date End Date Elsewhere, Pcp PCP - General Family Medicine 01/30/21 documented as of this encounter
--- OUTSIDE RECORDS SUMMARY | 2022-01-15 09:49 | XMS_ITS | Encounter Summary ---
:[address] [facility] Address [address] [place] [address] Care Team Providers Name Role Phone Elsewhere, Pcp Primary Care Provider Unavailable Reason for Referral Specialty Diagnoses / Procedures Referred By Contact Refer red To Contact Yenny Suarez P.A.-C ., M.S. [facility] [address] [place] [phone] Referral ID Status Reason Start Date Expiration Date Visits Requ ested Visits Authorized Encounter Details Date Type Department Care Team Description 08/12/2021 Hospital Encounter Department of Low George M.D. [address] [place] [phone] Primary Malignant Radiation Oncology Chey Mcghee RAaliyah [address] [place] [address] [phone] Neoplasm Of Prostate in [place], (HCC) [place] [address] [place] [phone] Social History Tobacco Use Types Packs/Day Years [...] How often do you attend samaritan or yazdanism 1 to 4 times per [...] highest level of school Associate degree: academ [email or web address] program 06/27/2021 you have completed or the [...] Body Mass Index 31.13 01/30/2021 11:48 AM HOSPITALITY ASSOCIATE documented in this encounter Medications at Time [...] as of this encounter Plan of Treatment Scheduled Referrals Name Type Priority Associated Order Schedule Diagnoses Radiation Oncology Outpatient Referral Routine Primary Maligna nt Once for 1 - Nurse education Neoplasm Of Occurrence s starting visit (clinic) Prostate (HCC) 08/12/2021 until 08/12/2021 documented as of this encounter Visit Diagnoses Diagnosis Primary Malignant Neoplasm Of Prostate ( HCC) documented in this encounter Care Teams Loan Expeditor Relationship Specialty Start Date End Date Elsewhere, Pcp PCP - General Family Medicine 01/30/21 documented as of this encounter
--- OUTSIDE RECORDS SUMMARY | 2022-01-15 09:49 | XMS_ITS | Encounter Summary ---
:1950 Author Organization [facility] Address [address] [place] [address] Care Team Providers Name Role Phone Elsewhere, Pcp Primary Care Provider Unavailable Encounter Details Date Type Department Care Team Description 08/23/2021 Hospital Encounter Department of Radiation La George, Oncology in [facility] [address] [facility] [address] [place] [address] [phone] Social History Tobacco Use Types Packs/Day Years [...] 06/27/2021 relatives? How often do you attend mosque or religion 1 to 4 times per year 06/27/2021 services? Do you belong to any clubs or organizations such No 06/27/2021 as mosque groups, unions, fraternal or athletic groups, or [...] the highest level of school Associate degree: [employer] program 06/27/2021 you have completed or the [...] on filedocumented in this encounter Care Teams Fuel Dock Attendant Relationship Specialty Start Date End Date Elsewhere, Pcp PCP - General Family Medicine 01/30/21 documented as of this encounter
--- OUTSIDE RECORDS SUMMARY | 2022-01-15 09:49 | XMS_ITS | Encounter Summary ---
:1950 Author Organization [facility] Address [address] [place] [address] Care Team Providers Name Role Phone Elsewhere, Pcp Primary Care Provider Unavailable Encounter Details Date Type Department Care Team Description 08/13/2021 Hospital Encounter Department of Radiation La George, Oncology in [facility] [address] [facility] [address] [place] [address] [phone] Social History Tobacco Use Types Packs/Day Years [...] How often do you attend scientology or alevism 1 to 4 times per [...] the highest level of school Associate degree: [employer] 1 program 06/27/2021 you have completed or the [...] on filedocumented in this encounter Care Teams Finishing Supervisor Relationship Specialty Start Date End Date Elsewhere, Pcp PCP - General Family Medicine 01/30/21 documented as of this encounter
--- OUTSIDE RECORDS SUMMARY | 2022-01-15 09:49 | XMS_ITS | Encounter Summary ---
:1950 Author Organization [facility] Address [address] [place] [address] Care Team Providers Name Role Phone Elsewhere, Pcp Primary Care Provider Unavailable Encounter Details Date Type Department Care Team Description 08/09/2021 Hospital Encounter Department of Radiation La George, Oncology in [facility] [address] [facility] [address] [place] [address] [phone] Social History Tobacco Use Types Packs/Day Years [...] How often do you attend islam or moravian 1 to 4 times per [...] the highest level of school Associate degree: [employer] program 06/27/2021 you have completed or the [...] on filedocumented in this encounter Care Teams Paper Carrier Relationship Specialty Start Date End Date Elsewhere, Pcp PCP - General Family Medicine 01/30/21 documented as of this encounter
--- OUTSIDE RECORDS SUMMARY | 2022-01-15 09:49 | XMS_ITS | Encounter Summary ---
:1950 Author Organization [facility] Address [address] [place] [address] Care Team Providers Name Role Phone Elsewhere, Pcp Primary Care Provider Unavailable Encounter Details Date Type Department Care Team Description 08/26/2021 Hospital Encounter Department of Radiation La George, Oncology in [facility] [address] [facility] [address] [place] [address] [phone] Social History Tobacco Use Types Packs/Day Years [...] 06/27/2021 relatives? How often do you attend druze or anabaptist 1 to 4 times per year 06/27/2021 services? Do you belong to any clubs or organizations such No 06/27/2021 as druze groups, unions, fraternal or athletic groups, or [...] the highest level of school Associate degree: [employer] program 06/27/2021 you have completed or the [...] on filedocumented in this encounter Care Teams Childhood Teacher Relationship Specialty Start Date End Date Elsewhere, Pcp PCP - General Family Medicine 01/30/21 documented as of this encounter
--- OUTSIDE RECORDS SUMMARY | 2022-01-15 09:49 | XMS_ITS | Encounter Summary ---
:1950 Author Organization [facility] Address [address] [place] [address] Care Team Providers Name Role Phone Elsewhere, Pcp Primary Care Provider Unavailable Encounter Details Date Type Department Care Team Description 08/22/2021 Hospital Encounter Department of Radiation La George, Oncology in [facility] [address] [facility] [address] [place] [address] [phone] Social History Tobacco Use Types Packs/Day Years [...] How often do you attend sikh or taoism 1 to 4 times per year 06/27/2021 [...] the highest level of school Associate degree: [employer] program 06/27/2021 you have completed or the [...] on filedocumented in this encounter Care Teams Therapist'S Assistant Relationship Specialty Start Date End Date Elsewhere, Pcp PCP - General Family Medicine 01/30/21 documented as of this encounter
--- OUTSIDE RECORDS SUMMARY | 2022-01-15 09:49 | XMS_ITS | Encounter Summary ---
:1950 Author Organization [facility] Address [address] [place] [address] Care Team Providers Name Role Phone Elsewhere, Pcp Primary Care Provider Unavailable Encounter Details Date Type Department Care Team Description 08/14/2021 Hospital Encounter Department of Radiation La George, Oncology in [facility] [address] [facility] [address] [place] [address] [phone] Social History Tobacco Use Types Packs/Day Years [...] 06/27/2021 relatives? How often do you attend protestant or zoroastrian 1 to 4 times per year 06/27/2021 services? Do you belong to any clubs or organizations such No 06/27/2021 as protestant groups, unions, fraternal or athletic groups, or [...] the highest level of school Associate degree: [employer] program 06/27/2021 you have completed or the [...] on filedocumented in this encounter Care Teams Casing Tester Relationship Specialty Start Date End Date Elsewhere, Pcp PCP - General Family Medicine 01/30/21 documented as of this encounter
--- OUTSIDE RECORDS SUMMARY | 2022-01-15 09:49 | XMS_ITS | Encounter Summary ---
:1950 Author Organization [facility] Address [address] [place] [address] Care Team Providers Name Role Phone Elsewhere, Pcp Primary Care Provider Unavailable Encounter Details Date Type Department Care Team Description 08/14/2021 Orders Only Pharmacy Prior Auth Annetta Mosley [phone] Social History Tobacco Use Types Packs/Day Years [...] How often do you attend anabaptism or pentecostal 1 to 4 times per year 06/27/2021 [...] on filedocumented in this encounter Care Teams Bundler Seasonal Greenery Relationship Specialty Start Date End Date Elsewhere, Pcp PCP - General Family Medicine 01/30/21 documented as of this encounter
--- OUTSIDE RECORDS SUMMARY | 2022-01-15 09:49 | XMS_ITS | Encounter Summary ---
:1950 Author Organization [facility] Address [address] [place] [address] Care Team Providers Name Role Phone Elsewhere, Pcp Primary Care Provider Unavailable Reason for Referral Radiation Therapy (Routine) - Authorized Specialty Diagnoses / Procedures Referred By Contact Refer red To Contact Diagnoses Primary Malignant Neoplasm Of Prostate (HCC) London George M.D. [facility] Procedures Management Visit [address] [place] [phone] Referral ID Status Reason Start Date Expiration Date Visits V isits Requested Authorized [id number] Authorized 07/25/2021 07/25/2022 10 10 Reason for Visit Radiation Therapy (Routine) - Authorized Specialty Diagnoses / Procedures Referred By Contact Refer red To Contact Diagnoses Primary Malignant Neoplasm Of Prostate (HCC) London George M.D. [facility] Procedures Management Visit [address] [place] [phone] Referral ID Status Reason Start Date Expiration Date Visits V isits Requested Authorized [id number] Authorized 07/25/2021 07/25/2022 10 10 Encounter Details Date Type Department Care Team Description 08/14/2021 Hospital Encounter Department of London George Malignant Radiation Oncology Osmin Costello Neoplasm Of Prostate in [place], [address] [facility] (HCC) [place], [place] [address] [facility] [address] [place], [place] [phone] (Work) [phone] Social History Tobacco Use Types Packs/Day Years [...] How often do you attend anabaptism or gnosticism 1 to 4 times per year 06/27/2021 [...] highest level of school Associate degree: academ [employer] program 06/27/2021 you have completed or the [...] Body Mass Index 30.81 01/30/2021 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 ([id number]) HISTORY OF PRESENT ILLNESS Mr. Cory Barton is a 70-year-old male with persistently positive PSA following prostatectomy. He is now undergoing salvage radiotherapy with a long course of ADT (aiming for 18-36 months of androgen deprivation therapy). Treatment Course: 1xProstBed Plan ID Fractions Dose / Fraction (cGy) Dose Treated (cGy) Dose Planned (cGy) First Treatment Last Treatment Elapsed Days [id number] [phone] 08/05/2021 08/14/2021 9 Course [...] mg injection on August 05, 2021 at [facility] Stress urinary incontinence following [...] London George M.D. 08/14/21 2:15 PM CDT [facility] [place] documented in this encounter Plan of Treatment Scheduled Orders Name Type Priority Associated Diagnoses Order S chedule Management Visit Radiation Oncology Routine Primary Malignant Once for 1 Neoplasm Of Prostate Occurre nces starting (HCC) 08/14/2021 unti l 08/14/2021 documented as of this encounter Visit Diagnoses Diagnosis Primary Malignant Neoplasm Of Prostate ( HCC) documented in this encounter Care Teams Lapeler Relationship Specialty Start Date End Date Elsewhere, Pcp PCP - General Family Medicine 01/30/21 documented as of this encounter
--- OUTSIDE RECORDS SUMMARY | 2022-01-15 09:49 | XMS_ITS | Encounter Summary ---
:1950 Author Organization [facility] Address [address] [place] [address] Care Team Providers Name Role Phone Elsewhere, Pcp Primary Care Provider Unavailable Encounter Details Date Type Department Care Team Description 08/16/2021 Hospital Encounter Department of Radiation La George, Oncology in [facility] [address] [facility] [address] [place] [address] [phone] Social History Tobacco Use Types Packs/Day Years [...] often do you attend oriental orthodox or jehovah's witness 1 to 4 times per year 06/27/2021 [...] the highest level of school Associate degree: [employer] program 06/27/2021 you have completed or the [...] on filedocumented in this encounter Care Teams Trainmaster Relationship Specialty Start Date End Date Elsewhere, Pcp PCP - General Family Medicine 01/30/21 documented as of this encounter
--- OUTSIDE RECORDS SUMMARY | 2022-01-15 09:49 | XMS_ITS | Encounter Summary ---
:1950 Author Organization [facility] Address [address] [place] [address] Care Team Providers Name Role Phone Elsewhere, [...] Onc Treatment Planning CT Simulation [address] [place] [address] Referral ID Status Reason Start Date Expiration Date Visits Requ ested Visits Authorized [id number] Closed 07/30/2021 07/30/2022 1 1 Reason for Visit Radiation Therapy (Routine) - Closed Specialty Diagnoses / Procedures Referred By Contact Refer red To Contact Diagnoses Rising Prostate Specific Antigen Following Treatment For Malignant Cancer Of Prostate Secondary Malignant Neoplasm Intrapelvic Lymph Node (HCC) London George M.D. [facility] [place] [facility] Procedures Initial Rad Onc Treatment Planning CT Simulation [address] [place], [place] [phone] Referral ID Status Reason Start Date Expiration Date Visits Requ ested Visits Authorized [id number] Closed 07/30/2021 07/30/2022 1 1 Encounter Details Date Type Department Care Team Description 07/30/2021 - Hospital Encounter Department of Rom George P rostate Specific Antigen Following Treatment For Malignant Cancer Of Prostate; 08/19/2021 Radiation Oncology London Costello M.D. Secondary Malignant Neoplasm Intrapelvic Lymph Node (HCC) in [place], [facility] [address] [place], [place] [address] [facility] [address] [place], [place] [phone] (Work) [phone] Social History Tobacco Use Types Packs/Day Years [...] How often do you attend jainism or faith 1 to 4 times per [...] planning. CT images were transferred to the Eclipse treatment planning system, after a reference isocenter was determined and marked. Segmentation and treatment planning will take place priorto treatment delivery. Patient set up and imaging was appropriate and completed without incident. Fitness Sales Consultant use: No documented in this encounter Plan [...] Time Received Time / Laterality Volume Narrative [facility] - 07/30/2021 12:18 PM CDT Francisca Gregory, RTT ? 07/30/2021 12:19 PM Initial Rad Onc Treatment Planning CT Si mulation Date/Time: 07/30/2021 12:18 PM Performed by: London George M.D. Authorized by: London George M.D. London George M.D. RADIATION ONCOLOGY ORDERABLE S Performing Organization Address City/State/ZIP Code Phon e Number [facility] documented in this encounter Visit Diagnoses Diagnosis Rising Prostate Specific Antigen Followi ng Treatment For Malignant Cancer Of Prostate Secondary Malignant Neoplasm Intrapelvic Lymph Node (HCC) documented in this encounter Care Teams Browning Processor Relationship Specialty Start Date End Date Elsewhere, Pcp PCP - General Family Medicine 01/30/21 documented as of this encounter
--- OUTSIDE RECORDS SUMMARY | 2022-01-15 09:49 | XMS_ITS | Encounter Summary ---
:1950 Author Organization [facility] Address [address] [place] [address] Care Team Providers Name Role Phone Elsewhere, Pcp Primary Care Provider Unavailable Reason for Visit Reason Comments Med Refill Abiraterone and prednisone Encounter Details Date Type Department Care Team Description 08/16/2021 Clinical Department of Elly Cohen Med Refill Communication Oncology in [place] [place] (Abiraterone and [place], [address] [place] [address] prednisone) [place], [place] [address] [place] [phone] [place] [address] Social History Tobacco Use Types Packs/Day Years [...] How often do you attend sabianism or mormon 1 to 4 times per year 06/27/2021 [...] the highest level of school Associate degree: [employer] program 06/27/2021 you have completed or the [...] prescription. His copay was over $1000/month per [facility] with his insurance. He asked me to reroute his prescription to [facility] where he will use a GoodRx coupon [...] potassium. PLAN Rerouted abiraterone and prednisone to [facility]. Referred Mr Barton to local provider to [...] Primary documented in this encounter Care Teams Clinical Trainer Relationship Specialty Start Date End Date Elsewhere, Pcp PCP - General Family Medicine 01/30/21 documented as of this encounter
--- OUTSIDE RECORDS SUMMARY | 2022-01-15 09:49 | XMS_ITS | Encounter Summary ---
:1950 Author Organization [facility] Address [address] [place] [address] Care Team Providers Name Role Phone Elsewhere, Pcp Primary Care Provider Unavailable Encounter Details Date Type Department Care Team Description 08/19/2021 Hospital Encounter Department of Radiation La George, Oncology in [facility] [address] [facility] [address] [place] [address] [phone] Social History Tobacco Use Types Packs/Day Years [...] How often do you attend tenriism or mosque 1 to 4 times per [...] the highest level of school Associate degree: [employer] program 06/27/2021 you have completed or the [...] on filedocumented in this encounter Care Teams Supportability Engineer Relationship Specialty Start Date End Date Elsewhere, Pcp PCP - General Family Medicine 01/30/21 documented as of this encounter
--- OUTSIDE RECORDS SUMMARY | 2022-01-15 09:49 | XMS_ITS | Encounter Summary ---
:1950 Author Organization [facility] Address [address] [place] [address] Care Team Providers Name Role Phone Elsewhere, Pcp Primary Care Provider Unavailable Encounter Details Date Type Department Care Team Description 08/20/2021 Hospital Encounter Department of Radiation La George, Oncology in [facility] [address] [facility] [address] [place] [address] [phone] Social History Tobacco Use Types Packs/Day Years [...] 06/27/2021 relatives? How often do you attend confucianist or yazidism 1 to 4 times per year 06/27/2021 services? Do you belong to any clubs or organizations such No 06/27/2021 as confucianist groups, unions, fraternal or athletic groups, or [...] place to sleep or slept in a assisted (including now)? Education Answer Date Recorded What is the highest level of school Associate degree: [employer] program 06/27/2021 you have completed or the [...] on filedocumented in this encounter Care Teams Meter And Service Line Inspector Relationship Specialty Start Date End Date Elsewhere, Pcp PCP - General Family Medicine 01/30/21 documented as of this encounter
--- OUTSIDE RECORDS SUMMARY | 2022-01-15 09:49 | XMS_ITS | Encounter Summary ---
:1950 Author Organization [facility] Address [address] [place] [address] Care Team Providers Name Role Phone Elsewhere, Pcp Primary Care Provider Unavailable Encounter Details Date Type Department Care Team Description 08/15/2021 Orders Only Pharmacy Prior Auth Joanna Fulton [phone] Social History Tobacco Use Types Packs/Day Years [...] 06/27/2021 relatives? How often do you attend restoration or hinduism 1 to 4 times per year 06/27/2021 services? Do you belong to any clubs or organizations such No 06/27/2021 as restoration groups, unions, fraternal or athletic groups, or [...] highest level of school Associate degree: academ [employer] program 06/27/2021 you have completed or the highest degree you have received? Sex Assigned at Date Recorded Male 06/27/2021 1:28 PM CDT documented as of this encounter Plan of Treatment Not on filedocumented as of this encounter Visit Diagnoses Not on filedocumented in this encounter Care Teams Petroleum Inspector Supervisor Relationship Specialty Start Date End Date Elsewhere, Pcp PCP - General Family Medicine 01/30/21 documented as of this encounter
--- OUTSIDE RECORDS SUMMARY | 2022-01-15 09:49 | XMS_ITS | Encounter Summary ---
:1950 Author Organization [facility] Address [address] [place] [address] Care Team Providers Name Role Phone Elsewhere, Pcp Primary Care Provider Unavailable Encounter Details Date Type Department Care Team Description 08/15/2021 Hospital Encounter Department of Radiation La George, Oncology in [place] [facility] [address] [facility] [address] [place] [address] [phone] Social History Tobacco Use Types Packs/Day Years [...] How often do you attend scientology or presybeterian 1 to 4 times per [...] the highest level of school Associate degree: [employer] program 06/27/2021 you have completed or the [...] on filedocumented in this encounter Care Teams Production Operations Inspector Relationship Specialty Start Date End Date Elsewhere, Pcp PCP - General Family Medicine 01/30/21 documented as of this encounter
--- OUTSIDE RECORDS SUMMARY | 2022-01-15 09:50 | XMS_ITS | Encounter Summary ---
:1950 Author Organization [facility] Address [address] [place] [address] Care Team Providers Name Role Phone Elsewhere, Pcp Primary Care Provider Unavailable Reason for Referral MRI/CAT/PET Scan (Routine) - Closed Specialty Diagnoses / Procedures Referred By Contact Refer red To Contact Diagnoses Primary Malignant Neoplasm Of Prostate (HCC) Funmi Montano APRN, [facility] Procedures PET CT Ch[place] C.N.P. [address] [place] [address] [phone] Referral ID Status Reason Start Date Expiration Date Visits Requ ested Visits Authorized [id number] Closed 06/27/2021 06/27/2022 1 1 Reason for Visit MRI/CAT/PET Scan (Routine) - Closed Specialty Diagnoses / Procedures Referred By Contact Refer red To Contact Diagnoses Primary Malignant Neoplasm Of Prostate (HCC) Funmi Montano APRN, [facility] Procedures PET CT Ch[place] C.N.P. [address] [place] [phone] Referral ID Status Reason Start Date Expiration Date Visits Requ ested Visits Authorized [id number] Closed 06/27/2021 06/27/2022 1 1 Encounter Details Date Type Department Care Team Description 07/02/2021 Hospital Encounter Department of Funmi Montano Malignant Radiology, Kristofer Santos APRN, C.N .P. Neoplasm Of Prostate Building, in [address] [place] [address] (HCC) [place], [place] 200 [facility] [address] [place], [place] [phone] (Work) [phone] Social History Tobacco Use Types Packs/Day Years [...] 06/27/2021 relatives? How often do you attend christian or holiness 1 to 4 times per year 06/27/2021 services? Do you belong to any clubs or organizations such No 06/27/2021 as christian groups, unions, fraternal or athletic groups, or [...] highest level of school Associate degree: academ [employer] program 06/27/2021 you have completed or the [...] screen captures provided. Funmi Montano APRN, C.N.P. [facility] PROCEDURES documented in this encounter [...] dose documented in this encounter Care Teams Hat Ironer Relationship Specialty Start Date End Date Elsewhere, Pcp PCP - General Family Medicine 01/30/21 documented as of this encounter
--- OUTSIDE RECORDS SUMMARY | 2022-01-15 09:50 | XMS_ITS | Encounter Summary ---
:1950 Author Organization [facility] Address [address] [place] [address] Care Team Providers Name Role Phone Elsewhere, Pcp Primary Care Provider Unavailable Reason for Referral Outpatient (Routine) - Closed Specialty Diagnoses / Procedures Referred By Contact Refer red To Contact Urology Billie Wilkinson M.D. , M.B.A. [facility] [address] [place] [phone] Referral ID Status Reason Start Date Expiration Date Visits Requ ested Visits Authorized [id number] Closed 02/25/2021 02/25/2022 1 1 Scheduling Instructions For same date as PSA AVER SIGNATURE Encounter Details Date Type Department Care Team Description 02/25/2021 Orders Only Department of Urology in Billie Wilkinson M.D., [place], [place] M.B.A. [address] [place] [address] [place] [phone] [place], [place] [phone] (Wo rk) Social History Tobacco Use Types [...] 06/27/2021 relatives? How often do you attend jew or scientologist 1 to 4 times per year 06/27/2021 services? Do you belong to any clubs or organizations such No 06/27/2021 as jew groups, unions, fraternal or athletic groups, or [...] or the highest technical, or vocational p rogram degree you have received? Sex Assigned at Date Recorded Male 06/27/2021 1:28 PM CDT documented as of this encounter Plan of Treatment Scheduled Referrals Name Type Priority Associated Diagnoses [facility] Outpatient Referral Routine Expect ed: visit (clinic) 04/30/2021, Expires: 05/26/2022 documented as of this encounter Visit Diagnoses Not on filedocumented in this encounter Care Teams Franchise Specialist Relationship Specialty Start Date End Date Elsewhere, Pcp PCP - General Family Medicine 01/30/21 documented as of this encounter
--- OUTSIDE RECORDS SUMMARY | 2022-01-15 09:50 | XMS_ITS | Encounter Summary ---
:1950 Author Organization [facility] Address [address] [place] [address] Care Team Providers Name Role Phone Elsewhere, Pcp Primary Care Provider Unavailable Reason for Referral Outpatient (Routine) - Closed Specialty Diagnoses / Procedures Referred By Contact Refer red To Contact Radiation Oncology Diagnoses Primary Malignant Neoplasm Of Prostate (HCC) Rising Prostate Specific Antigen Following Treatment For Malignant Cancer Of Prostate Secondary Malignant Neoplasm Intrapelvic Lymph Node (HCC) Magnus Newman [place] [facility] M.D. 200 [place] [address] Referral ID Status Reason Start Date Expiration Date Visits Requ ested Visits Authorized [id number] Closed 07/22/2021 07/22/2022 1 1 Scheduling Instructions To be seen by Dr. George Outpatient (Routine) - Closed Specialty Diagnoses / Procedures Referred By Contact Refer red To Contact Radiation Oncology Diagnoses Primary Malignant Neoplasm Of Prostate (HCC) Funmi Montano [facility] CHANA, C.N.P. [address] [place] [address] Referral ID Status Reason Start Date Expiration Date Visits Requ ested Visits Authorized [id number] Closed 06/27/2021 06/27/2022 1 1 Reason for Visit Outpatient (Routine) - Closed Specialty Diagnoses / Procedures Referred By Contact Refer red To Contact Radiation Oncology Diagnoses Primary Malignant [facility]) [facility] [address] [place] [phone] Referral ID Status Reason Start Date Expiration Date Visits Requ ested Visits Authorized [id number] Closed 06/27/2021 06/27/2022 1 1 Encounter Details Date Type Department Care Team Description 07/22/2021 Hospital Encounter Department of Magnus Newman y Malignant Neoplasm Intrapelvic Lymph Node (HCC) (Primary Dx); Radiation Oncology [place] Rising Prostate Specific Antigen Followi ng Treatment For Malignant Cancer Of Prostate; in [address] Primary Malignant Neoplasm Of Prostate ( HCC) [place], [place] [address] [place] [phone] [place], [place] [phone] (Work) [phone] Social History Tobacco Use Types Packs/Day Years [...] How often do you attend scientology or rastafarian 1 to 4 times per [...] highest level of school Associate degree: academ [employer] program 06/27/2021 you have completed or [...] Body Mass Index 30.81 01/30/2021 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 The left prostate samples demonstrated Mendon 3 + 3 adenocarcinoma in 1/6 cores [...] for metastatic disease. Pathology showed adenocarcinoma with Mendon score 4+5, measuring 3.1 x 1.9 x [...] Surgical History: Procedure Laterality Date ??? CHOLECYSTECTOMY 2016 ??? ROBOTIC-ASSISTED LYMPH NODE DISSECTION - PELVIC N/A 01/30/2021 Procedure: ROBOTIC-ASSISTED DISSECTION LYMPH NODE, PELVIC.; Surgeon: Lenny Gaspar M.D.; Location:[facility] OR ??? ROBOTIC-ASSISTED RADICAL PROSTATECTOMY N/A 01/30/2021 Procedure: ROBOTIC-ASSISTED RADICAL PROSTATECTOMY.; Surgeon: Lenny Gaspar M.D.; Location: [facility] OR ALLERGIES: No Known Allergies REVIEW OF [...] multiple adverseclinical and pathologic features (a high Valencia score, persistently detectable PSA after surgery, arelatively [...] would like to pursue salvage radiotherapy at [place]. Thus, I made a referral to Dr. George in [place]. I will leave the arrangement of androgen [...] in this encounter Plan of Treatment Scheduled Referrals Name Type Priority Associated Diagnoses Order S chedule Radiation Oncology Outpatient Referral Routine Primary Maligna nt Once for 1 - consult Neoplasm Of Prostate Occurre nces (clinic) ([facility]) starting 2021 until 2 Radiation Oncology Outpatient Referral Routine Primary Maligna nt Expected: - consult Neoplasm Of Prostate 022 (clinic) ([facility]) (Approximate), Rising Prostate Expires: Specific Antigen Following Treatment For Malignant Cancer Of Prostate Secondary Malignant Neoplasm Intrapelvic Lymph Node (HCC) documented as of this encounter Visit Diagnoses Diagnosis Secondary Malignant Neoplasm Intrapelvic Lymph Node (HCC) - Primary Rising Prostate Specific Antigen Followi ng Treatment For Malignant Cancer Of Prostate Primary Malignant Neoplasm Of Prostate ( HCC) documented in this encounter Care Teams Traveling Freight Agent Relationship Specialty Start Date End Date Elsewhere, Pcp PCP - General Family Medicine 01/30/21 documented as of this encounter
--- OUTSIDE RECORDS SUMMARY | 2022-01-15 09:50 | XMS_ITS | Encounter Summary ---
:1950 Author Organization [facility] Address [address] [address] Care Team Providers Name Role Phone Elsewhere, Pcp Primary Care Provider Unavailable Reason for Referral Outpatient (Routine) - Authorized Specialty Diagnoses / Procedures Referred By Contact Refer red To Contact Radiation Oncology [place] George M .D. [facility] [address] [place] [address] Referral ID Status Reason Start Date Expiration Date Visits V isits Requested Authorized [id number] Authorized 07/25/2021 07/25/2022 10 10 Specialty Diagnoses / Procedures Referred By Contact Refer red To Contact Yenny Suarez P.A.-C ., M.S. [facility] [address] [place], [place] [address] Referral ID Status Reason Start Date Expiration Date Visits Requ ested Visits Authorized Radiation Therapy (Routine) - Authorized Specialty Diagnoses / Procedures Referred By Contact Refer red To Contact Diagnoses Primary Malignant Neoplasm Of Prostate (HCC) London George M.D. [facility] Region Procedures Management Visit [address] [place], [place] [address] Referral ID Status Reason Start Date Expiration Date Visits V isits Requested Authorized [id number] Authorized 07/25/2021 07/25/2022 10 10 Radiation Therapy (Routine) - Authorized Specialty Diagnoses / Procedures Referred By Contact Refer red To Contact Diagnoses Primary Malignant Neoplasm Of Prostate (HCC) London George M.D. [facility] Procedures Prior Auth Rad Tx [address] [place], [place] [address] Referral ID Status Reason Start Date Expiration Date Visits V isits Requested Authorized [id number] Authorized 07/25/2021 07/25/2022 1 1 Encounter Details Date Type Department Care Team Description 07/25/2021 Orders Only Department of Radiation Yenny Suarez Pri mary Malignant Oncology in [place], PAlbaro, M.S. Neoplasm Of Prostate [place] [address] [facility] (HCC) (Primary Dx) [address] [place] [phone] Social History Tobacco Use Types Packs/Day Years [...] 06/27/2021 relatives? How often do you attend quaker or lutheran 1 to 4 times per year 06/27/2021 services? Do you belong to any clubs or organizations such No 06/27/2021 as quaker groups, unions, fraternal or athletic groups, or [...] highest level of school Associate degree: academ [employer] program 06/27/2021 you have completed or the highest degree you have received? Sex Assigned at Date Recorded Male 06/27/2021 1:28 PM CDT documented as of this encounter Plan of Treatment Scheduled Orders Name Type Priority Associated Order [...] Primary documented in this encounter Care Teams Websphere Portal Developer Relationship Specialty Start Date End Date Elsewhere, Pcp PCP - General Family Medicine 01/30/21 documented as of this encounter
--- OUTSIDE RECORDS SUMMARY | 2022-01-15 09:50 | XMS_ITS | Encounter Summary ---
:1950 Author Organization [facility] Address [address] [place] [address] Care Team Providers Name Role Phone Elsewhere, Pcp Primary Care Provider Unavailable Reason for Referral Outpatient (Routine) - Closed Specialty Diagnoses / Procedures Referred By Contact Refer red To Contact Radiation Oncology Diagnoses Primary Malignant Neoplasm Of Prostate ([facility]CC) [facility] [address] [place] [phone] Referral ID Status Reason Start Date Expiration Date Visits Requ ested Visits Authorized [id number] Closed 06/27/2021 06/27/2022 1 1 MRI/CAT/PET Scan (Routine) - Closed Specialty Diagnoses / Procedures Referred By Contact Refer red To Contact Radiology Diagnoses Primary Malignant Neoplasm Of Prostate (HCC) [facility] MR Prostate without and with IV Contrast C.N.P. [address] [place] [phone] Referral ID Status Reason Start Date Expiration Date Visits Requ ested Visits Authorized [id number] Closed 06/27/2021 06/27/2022 1 1 MRI/CAT/PET Scan (Routine) - Closed Specialty Diagnoses / Procedures Referred By Contact Refer red To Contact Diagnoses Primary Malignant Neoplasm Of Prostate (HCC) Funmi Montano APRN, [place] [facility] Procedures PET CT [place] C.N.P. [address] [place] [phone] Referral ID Status Reason Start Date Expiration Date Visits Requ ested Visits Authorized [id number] Closed 06/27/2021 06/27/2022 1 1 Reason for Visit Outpatient (Routine) - Closed Specialty Diagnoses / Procedures Referred By Contact Refer red To Contact Urology Billie Wilkinson M.D. , M.B.A. [facility] 200 [place], [place] [address] Referral ID Status Reason Start Date Expiration Date Visits Requ ested Visits Authorized [id number] Closed 02/25/2021 02/25/2022 1 1 Encounter Details Date Type Department Care Team Description 06/27/2021 Office Visit Department of Urology Lenny Gaspar, Prim maci Malignant Neoplasm Of Prostate (HCC) (Primary Dx); [facility] [place] 200 [facility] [place] 200 [place] [phone] Social History Tobacco Use Types Packs/Day Years [...] How often do you attend nondenominational or rastafari 1 to 4 times per [...] Name Type Priority Associated Diagnoses Order S [facility] Radiation Oncology Outpatient Referral Routine Primary Maligna nt Expected: - consult Neoplasm Of Prostate 022 (clinic) (HCC) (Approximate), Expires: 09/26/2022 documented as of this encounter Results MR [...] to the left of the urethra, (series 44471, image 26) withou t a discrete lesion [...] ??Highly suspicious Procedure Note Yonas Alexander M.B.B.S., MMiki. - 2 MR PROSTATE WITHOUT AND WITH IV CONTRAST COMPARISON: Same day PET choline CLINICAL HISTORY: Recurrent suspected. P SA 1.9 ng/mL. PROSTATE BED: Postoperative changes of p rostatectomy. Mild increased perfusion to the left of the urethra, (series 70213, image 26) withou t a discrete lesion [...] 3. Negative for bone metastasis. Funmi Montano APRN C.N.PAlvarez RIOS MRI PROCEDURES PET CT Choline (07/02/2021 1:32 [...] after radiotracer injection. COMPARISON: Prior prostate MRI 1. INDICATION: Resected prostate malignancy persistent mildly elevated [...] captures provided. Funmi Montano APRN, C.N.P. IMG MS PROCEDURES PSA (Prostate-Specific Antigen), Diagnostic (07/02/2021 10:49 AM CDT) athologist Signature Prostate-Specif 1.9 <=6.5 ng/mL 07/02/2021 DTL ic Ag 3:10 PM CDT Comment: ----ADDITIONAL INFORMATION---- The testing method is an electrochemilum inescence assay manufactured by [employer] and performed on the Aplicor or Denise system . Values obtained with [...] Organization Address City/State/ZIP Code Phon e Number [facility] - [address] [place], [place] [address] [facility] [place] [address] [facility] [address] documented in this encounter Visit Diagnoses Diagnosis Primary Malignant Neoplasm Of Prostate ( HCC) - Primary Dysfunction Erectile Primary Malignant Neoplasm Of Prostate ( HCC) Primary Malignant Neoplasm Of Prostate ( HCC) documented in this encounter Care Teams Share Dairy Farmer Relationship Specialty Start Date End Date Elsewhere, Pcp PCP - General Family Medicine 01/30/21 documented as of this encounter
--- OUTSIDE RECORDS SUMMARY | 2022-01-15 09:50 | XMS_ITS | Encounter Summary ---
:1950 Author Organization [facility] Address [address] [place] [address] Care Team Providers Name Role Phone Elsewhere, Pcp Primary Care Provider Unavailable Encounter Details Date Type Department Care Team Description 02/07/2021 Clinical Communication Department of Urology [facility], [facility] [place] [address] [facility] [address] [place] [phone] [phone] Social History Tobacco Use Types Packs/Day Years [...] 06/27/2021 relatives? How often do you attend mandaeism or taoist 1 to 4 times per year 06/27/2021 services? Do you belong to any clubs or organizations such No 06/27/2021 as mandaeism groups, unions, fraternal or athletic groups, or [...] following references were used: nursing clinical judgement. SALESPERSON Telephone Encounter - Aranza Vila - 02/07/2021 12:56 PM CST Pt had prostatectomy on 01/30 and called in with concerns of having blood in his urine and also around the catheter. Please contact him at [phone] Thank you SALESPERSON documented in this encounter Plan of Treatment Not on filedocumented as of this encounter Visit Diagnoses Not on filedocumented in this encounter Care Teams International Trade Compliance Manager Relationship Specialty Start Date End Date Elsewhere, Pcp PCP - General Family Medicine 01/30/21 documented as of this encounter
--- OUTSIDE RECORDS SUMMARY | 2022-01-15 09:50 | XMS_ITS | Encounter Summary ---
:1950 Author Organization [facility] Address [address] [place] [address] Care Team Providers Name Role Phone Elsewhere, Pcp Primary Care Provider Unavailable Encounter Details Date Type Department Care Team Description 08/07/2021 Hospital Encounter Department of Radiation La George, Oncology in [employer] [employer] [address] [facility] [address] [place] [phone] Social History Tobacco Use Types Packs/Day Years [...] 06/27/2021 relatives? How often do you attend sabianist or jain 1 to 4 times per year 06/27/2021 services? Do you belong to any clubs or organizations such No 06/27/2021 as sabianist groups, unions, fraternal or athletic groups, or [...] the highest level of school Associate degree: [employer] program 06/27/2021 you have completed or the [...] on filedocumented in this encounter Care Teams Budget Director Relationship Specialty Start Date End Date Elsewhere, Pcp PCP - General Family Medicine 01/30/21 documented as of this encounter
--- OUTSIDE RECORDS SUMMARY | 2022-01-15 09:50 | XMS_ITS | Encounter Summary ---
:1950 Author Organization [facility] Address [address] [place] [address] Care Team Providers Name Role Phone Elsewhere, Pcp Primary Care Provider Unavailable Reason for Visit Reason Comments Appointment Encounter Details Date Type Department Care Team Description 02/21/2021 Clinical Communication Department of Urology Charles Gaspar, Appointment in [place] [address] [facility] [address] [place] [phone] [phone] Social History Tobacco Use Types Packs/Day Years [...] How often do you attend adventism or worship 1 to 4 times per [...] Wilkinson M.D., M.B.A. - 02/25/2021 6:39 PM EXHIBIT PREPARATOR Spoke with patient's . We will place [...] scheduling team to help schedule office visit. BIT PREPARATOR Telephone Encounter - Danay Thayer - 02/25/2021 10:53 AM CST Pt Anahy called in asking about follow-up appts Per plan : 3 month follow-up with PSA and office visit with Dr. Gaspar Ther are no orders placed Best # to reach Anahy [phone] Thank you BIT PREPARATOR Telephone Encounter - Yonny Mitchell - 02/21/2021 11:20 AM CST Patient of Dr. Oswald in [place]. Prostatectomy done with Dr. Gaspar on 01/30. [...] to get it scheduled for Cory. Thanks! BIT PREPARATOR documented in this encounter Plan of Treatment Not on filedocumented as of this encounter Visit Diagnoses Not on filedocumented in this encounter Care Teams Fire Sprinkler Service Technician Relationship Specialty Start Date End Date Elsewhere, Pcp PCP - General Family Medicine 01/30/21 documented as of this encounter
--- OUTSIDE RECORDS SUMMARY | 2022-01-15 09:50 | XMS_ITS | Encounter Summary ---
:1950 Author Organization [facility] Address [address] [place] [address] Care Team Providers Name Role Phone Elsewhere, Pcp Primary Care Provider Unavailable Reason for Referral MRI/CAT/PET Scan (Routine) - Closed Specialty Diagnoses / Procedures Referred By Contact Refer red To Contact Radiology Diagnoses Primary Malignant Neoplasm Of Prostate (HCC) [facility] Procedures MR Prostate without and with IV Contrast C.N.P. [address] [place] [phone] Referral ID Status Reason Start Date Expiration Date Visits Requ ested Visits Authorized [id number] Closed 06/27/2021 06/27/2022 1 1 Reason for Visit MRI/CAT/PET Scan (Routine) - Closed Specialty Diagnoses / Procedures Referred By Contact Refer red To Contact Radiology Diagnoses Primary Malignant Neoplasm Of Prostate (HCC) [facility] Procedures MR Prostate without and with IV Contrast C.N.P. [address] [place], [place] [address] Referral ID Status Reason Start Date Expiration Date Visits Requ ested Visits Authorized [id number] Closed 06/27/2021 06/27/2022 1 1 Encounter Details Date Type Department Care Team Description 07/02/2021 Hospital Encounter Department of Funmi Montano Malignant Radiology, Jazmín Santos APRN, C.N.P. Neoplasm Of Prostate Building, in 200 [facility] [place], [place] 200 [facility] [address] [place], [place] [phone] (Work) [phone] Social History Tobacco Use Types Packs/Day Years [...] How often do you attend orthodox or methodist 1 to 4 times per [...] highest level of school Associate degree: academ [employer] program 06/27/2021 you have completed or the [...] to the left of the urethra, (series [id number], image 26) withou t a discrete lesion [...] to the left of the urethra, (series 76993, image 26) withou t a discrete lesion [...] intravenous, Once in imaging, contrast, Starting on 5/3/22 at 1803, For 1 dose, Imaging Protocol [...] Orders documented in this encounter Care Teams Strategic Planning Director Relationship Specialty Start Date End Date Elsewhere, Pcp PCP - General Family Medicine 01/30/21 documented as of this encounter
--- OUTSIDE RECORDS SUMMARY | 2022-01-15 09:50 | XMS_ITS | Encounter Summary ---
:1950 Author Organization [facility] Address [address] [place] [address] Care Team Providers Name Role Phone Elsewhere, Pcp Primary Care Provider Unavailable Encounter Details Date Type Department Care Team Description 08/05/2021 Hospital Encounter Department of Radiation La George, Oncology in [facility] [address] [facility] [address] [place] [phone] Social History Tobacco Use Types Packs/Day Years [...] How often do you attend evangelical or christianity 1 to 4 times per year 06/27/2021 [...] the highest level of school Associate degree: [employer] program 06/27/2021 you have completed or the [...] on filedocumented in this encounter Care Teams Mass Spec Relationship Specialty Start Date End Date Elsewhere, Pcp PCP - General Family Medicine 01/30/21 documented as of this encounter
--- OUTSIDE RECORDS SUMMARY | 2022-01-15 09:50 | XMS_ITS | Encounter Summary ---
:1950 Author Organization [facility] Address [address] [place] [address] Care Team Providers Name Role Phone Elsewhere, Pcp Primary Care Provider Unavailable Reason for Visit Reason Comments Appointment Encounter Details Date Type Department Care Team Description 07/30/2021 Clinical Communication Department of Oncology Nancy Arnold Appointment in [facility] [place] M.D. [address] [facility] [address] [place] [phone] [phone] Social History Tobacco Use Types Packs/Day Years [...] How often do you attend catholic or muslim 1 to 4 times per year 06/27/2021 [...] highest level of school Associate degree: academ [email or web address] program 06/27/2021 you have completed or the highest degree you have received? Sex Assigned at Date Recorded Male 06/27/2021 1:28 PM CDT documented as of this encounter Plan of Treatment Not on filedocumented as of this encounter Visit Diagnoses Not on filedocumented in this encounter Care Teams Sausage Maker Relationship Specialty Start Date End Date Elsewhere, Pcp PCP - General Family Medicine 01/30/21 documented as of this encounter
--- OUTSIDE RECORDS SUMMARY | 2022-01-15 09:50 | XMS_ITS | Encounter Summary ---
:1950 Author Organization [facility] Address [address] [place] [address] Care Team Providers Name Role Phone Elsewhere, Pcp Primary Care Provider Unavailable Reason for Visit Outpatient (Routine) - Closed Specialty Diagnoses / Procedures Referred By Contact Refer red To Contact Diagnoses Primary Malignant Neoplasm Of Prostate (HCC) Silvia Eng M.D. [facility] Procedures URO Urethral cath removal & voiding trial ([facility]) [address] [place] [phone] Referral ID Status Reason Start Date Expiration Date Visits Requ ested Visits Authorized [id number] Closed 01/31/2021 01/31/2022 1 1 Encounter Details Date Type Department Care Team Description 02/11/2021 Procedure visit Department of Silvia Eng M.D. [address] [place] [phone] Primary Malignant Urology in [place]cha Piedra R.N. [address] [place] [phone] Neoplasm Of Prostate [place], [place] (HCC) [address] [place] [phone] Social History Tobacco Use Types Packs/Day Years [...] How often do you attend advent or orthodox 1 to 4 times per year [...] local emergency room if unable to void E AND FRAME FILTER OPERATOR documented in this encounter Plan of Treatment Not on filedocumented as of this encounter Visit Diagnoses Diagnosis Primary Malignant Neoplasm Of Prostate ( HCC) documented in this encounter Care Teams Visual Educator Relationship Specialty Start Date End Date Elsewhere, Pcp PCP - General Family Medicine 01/30/21 documented as of this encounter
--- OUTSIDE RECORDS SUMMARY | 2022-01-15 09:50 | XMS_ITS | Encounter Summary ---
:1950 Author Organization [facility] Address [address] [place] [address] Care Team Providers Name Role Phone Elsewhere, Pcp Primary Care Provider Unavailable Encounter Details Date Type Department Care Team Description 02/02/2021 Documentation Department of Urology in [place] Gaspar M.D. [place], [place] [address] [place] [address] [place] [phone] (Wo rk) Social History Tobacco Use Types [...] How often do you attend muslim or rastafarian 1 to 4 times per [...] Barton regarding his surgical pathology. It demonstrates [place] 4+5 prostate cancer that demonstrates extraprostatic extension into the periprostatic soft tissue. There is no invasion of the seminal vesicles. All surgical margins are negative for cancer. All lymph nodes are negative for cancer. No adjuvant therapy is recommended. Will monitor his PSA in [address] an order for a PSA to be done in [facility]. P PILER documented in this encounter Plan of Treatment Not on filedocumented as of this encounter Results PSA (Prostate-Specific [...] M.D. LAB BLOOD ADD-ON Performing Organization Address City/State/[facility] Code Phon e Number [facility] - [address] [place], [place] [address] [facility] [place] [address] [facility] [address] documented in this encounter Visit Diagnoses Diagnosis Primary Malignant Neoplasm Of Prostate ( HCC) - Primary documented in this encounter Care Teams Tank House Operator Helper Relationship Specialty Start Date End Date Elsewhere, Pcp PCP - General Family Medicine 01/30/21 documented as of this encounter
--- OUTSIDE RECORDS SUMMARY | 2022-01-15 09:50 | XMS_ITS | Encounter Summary ---
:1950 Author Organization [facility] Address [address] [place] [address] Care Team Providers Name Role Phone Elsewhere, Pcp Primary Care Provider Unavailable Encounter Details Date Type Department Care Team Description 01/31/2021 Orders Only [facility], Danya Eng M.D. [facility], [address] [place] [address] Floor [address] [place] [address] Social History Tobacco Use Types Packs/Day Years [...] How often do you attend taoist or oriental orthodox 1 to 4 times [...] on filedocumented in this encounter Care Teams Dragger Out Relationship Specialty Start Date End Date Elsewhere, Pcp PCP - General Family Medicine 01/30/21 documented as of this encounter
--- OUTSIDE RECORDS SUMMARY | 2022-01-15 09:50 | XMS_ITS | Encounter Summary ---
:1950 Author Organization [facility] Address [address] [place] [address] Care Team Providers Name Role Phone Elsewhere, Pcp Primary Care Provider Unavailable Reason for Visit Outpatient (Routine) - Closed Specialty Diagnoses / Procedures Referred By Contact Refer red To Contact Medical Oncology / Diagnoses Rising Prostate Specific Antigen Following Treatment For Malignant Cancer Of Prostate Secondary Malignant Neoplasm Intrapelvic Lymph Node (HCC) Nawaf Weiss, [facility] Oncology M.Herber, M.S. [address] [place] [phone] Referral ID Status Reason Start Date Expiration Date Visits Requ ested Visits Authorized [id number] Closed 07/30/2021 07/30/2022 1 1 Encounter Details Date Type Department Care Team Description 08/08/2021 Telemedicine Department of Oncology Nancy Arnold ry Malignant Neoplasm Of Prostate (HCC) (Primary Dx); in [place] Rising Prostate Specific Antigen Followi ng Treatment For Malignant Cancer Of Prostate; [place] [address] [facility] Secondary Malignant Neoplasm Intrapelvic Lymph Node (HCC) [address] [place] [address] [phone] Social History Tobacco Use Types Packs/Day Years [...] How often do you attend buddhist or jew 1 to 4 times per [...] highest level of school Associate degree: academ [employer] program 06/27/2021 you have completed or the [...] B. Left prostate core biopsies: Prostate adenocarcinoma, Rockledge grade 3 + 3 (grade group 1), [...] carcinoma. B. Prostate gland, radical prostatectomy: Adenocarcinoma ([place] pattern 4+5, grade group 5) is identified [...] Acinar adenocarcinoma Histologic Grade Grade Group and Rockledge Score Grade Group 3 (Valencia Score 4+5=9) Minor Tertiary Pattern 5 (less than 5%): Not applicable Percentage of Pattern 4 in [place] score 7: Not applicable Intraductal Carcinoma (IDC): [...] patient would like to pursue radiotherapy in [place]. A referral was placed. He left the [...] time. I sent a prescription to the [facility] for abiraterone, 1000 mg per day plus prednisone 5 mg per day. He will callme if he is able to afford abiraterone and then he will have formal teaching from our nurses. He would like to have follow-up in [facility]. I will arrange for this. We [...] (HCC) documented in this encounter Care Teams Sand Screener Operator Relationship Specialty Start Date End Date Elsewhere, Pcp PCP - General Family Medicine 01/30/21 documented as of this encounter
--- OUTSIDE RECORDS SUMMARY | 2022-01-15 09:50 | XMS_ITS | Encounter Summary ---
:1950 Author Organization [facility] Address [address] [place] [address] Care Team Providers Name Role Phone Elsewhere, Pcp Primary Care Provider Unavailable Encounter Details Date Type Department Care Team Description 07/02/2021 Hospital Encounter Department of Funmi Montano Malignant Laboratory Medicine M, THERMOPLASTIC TECHNICIAN, C.N .P. Neoplasm Of Prostate and Pathology, [address] [place] [address] ([facility]) [facility] in [place], [place] [address] [place] [address] [place], [place] (Work) [phone] Social History Tobacco Use Types Packs/Day Years [...] How often do you attend pentecostal or voodoo 1 to 4 times per [...] highest level of school Associate degree: academ [employer] program 06/27/2021 you have completed or [...] an electrochemilum inescence assay manufactured by [employer] and performed on the Modular or [...] Organization Address City/State/ZIP Code Phon e Number [facility] - [address] [place], [place] [address] [facility] [place] [address] [facility] [address] documented in this encounter Visit Diagnoses Diagnosis Primary Malignant Neoplasm Of Prostate ( HCC) documented in this encounter Care Teams Laser Beam Trim Operator Relationship Specialty Start Date End Date Elsewhere, Pcp PCP - General Family Medicine 01/30/21 documented as of this encounter
--- OUTSIDE RECORDS SUMMARY | 2022-01-15 09:50 | XMS_ITS | Encounter Summary ---
:1950 Author Organization [facility] Address [address] [place] [address] Care Team Providers Name Role Phone Elsewhere, Pcp Primary Care Provider Unavailable Encounter Details Date Type Department Care Team Description 08/06/2021 Hospital Encounter Department of Radiation La George, Oncology in [facility] [address] [facility] [address] [place] [phone] Social History Tobacco Use Types Packs/Day Years [...] How often do you attend sikh or judaism 1 to 4 times per [...] the highest level of school Associate degree: [employer] program 06/27/2021 you have completed or [...] on filedocumented in this encounter Care Teams Treatment Plant Operator Relationship Specialty Start Date End Date Elsewhere, Pcp PCP - General Family Medicine 01/30/21 documented as of this encounter
--- OUTSIDE RECORDS SUMMARY | 2022-01-15 09:50 | XMS_ITS | Encounter Summary ---
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 Oncology M.Kadie., M.S. 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 [place] [address] [place] [address] Referral ID Status Reason Start Date Expiration Date Visits Requ ested Visits Authorized [id number] Closed 07/22/2021 07/22/2022 1 1 Scheduling Instructions [...] (HCC) [facility] [address] [place] [address] Referral ID Status Reason Start Date Expiration Date Visits Requ ested Visits Authorized [id number] Closed 07/22/2021 07/22/2022 1 1 Encounter Details Date Type Department Care Team Description 07/30/2021 Hospital Encounter Department of Leenstra, Hypogona dism Male (Primary Dx); Radiation Oncology London Costello M.D. Primary Malignant Neoplasm Of Prostate ( HCC); in [place], [facility] [address] [facility] Rising Prostate Specific Antigen Followi ng Treatment For Malignant Cancer Of Prostate; [place], [place] Secondary Malignant Neoplasm Intrapelvic Lymph Node (HCC) [address] [facility] [address] [place], [place] [phone] [address] (Work) [phone] Social History Tobacco Use Types Packs/Day Years [...] 06/27/2021 relatives? How often do you attend anabaptist or amish 1 to 4 times per year 06/27/2021 services? 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 0 05/22/2020 sulfamethoxazole-trimetho TAKE 1 TABLET BY 6 tablet 0 04/202001/31/2022 prim (BACTRIM DS) 800-160 MOUTH TWO TIMES A mg per tablet DAY FOR 3 DAYS; BEGIN ONE DAY PRIOR TO CATHETER REMOVAL polyethylene glycol Take 1 packet (17 g 0 021 08/12/2021 (MIRALAX) 17 gram powder total) by mouth packet daily as needed for constipation. Dissolve each 17 g dose in 240 mLs (8 ounces) of beverage. documented as of this encounter Consult Notes Nawaf Weiss M.D., M.S. - 07/30/2021 10:00 AM CDT RADIATION ONCOLOGY CONSULTATION Supervising Manager Technical Training: Dr. London George Referring Provider: Magnus Newman M.D. Primary Care Provider: Dr. Gilberto Cho Home address: [address] [place] [phone] SUBJECTIVE History of present illness Mr. Cory [...] Not applicable Percentage of Pattern 4 in [place] score 7: Not applicable Intraductal Carcinoma (IDC): [...] patient would like to pursue radiotherapy in [place]. A referral was placed. He left the [...] has been evaluated by Dr. Newman in [place]. We discussed recommendations to treat the prostate [...] or concerns. Dr. London George is the testing consultant; please see attestation for further details. Nawaf Weiss M.D., M.S. Associated attestation - London George M.D. - 07/30/2021 11:55 AM CDT I saw and evaluated the patient and participated in the [place] portions of the service. I reviewed the documentation of Nawaf Weiss M.D. and agree with his findings and plan. In brief, Mr. Cory Barton is a 70 y.o. male from [place], [place] with a persistently positive PSA following [...] Valencia 3+3 in the left prostate and [place] 3+4 in the left apex.He underwent a [...] have a leuprolide 22.[address] [facility] next week. We will refer the patient [...] Thursday, August 05, 2021. My thanks to DrsAlvarez Newman, Hubert, and Marquis for the opportunity [...] London George M.D. 07/30/21 11:55 AM CDT [facility] [address] [place] [address] documented in this encounter Miscellaneous Notes Addendum Note - Emma Rodriguez C.N.A. - 07/30/2021 10:00 AM CDT Encounter addended by: Emma Rodriguez C.N.A. 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
--- OUTSIDE RECORDS SUMMARY | 2022-01-15 09:50 | XMS_ITS | Encounter Summary ---
:1950 Author Organization [facility] Address [address] [place] [address] Care Team Providers Name Role Phone Elsewhere, Pcp Primary Care Provider Unavailable Encounter Details Date Type Department Care Team Description 08/07/2021 Orders Only Department of Oncology in [place], [place] MAlvarezDAlvarez [address] [facility] [address] [place] [address] [place], [place] [phone] (Wo rk) Social History Tobacco Use Types [...] How often do you attend rastafari or pentecostalism 1 to 4 times per [...] the highest level of school Associate degree: [employer] program 06/27/2021 you have completed or the highest degree you have received? Sex Assigned at Date Recorded Male 06/27/2021 1:28 PM CDT documented as of this encounter Plan of Treatment Not on filedocumented as of this encounter Visit Diagnoses Not on filedocumented in this encounter Care Teams Orthotist Or Prosthetist Relationship Specialty Start Date End Date Elsewhere, Pcp PCP - General Family Medicine 01/30/21 documented as of this encounter
--- OUTSIDE RECORDS SUMMARY | 2022-01-15 09:50 | XMS_ITS | Encounter Summary ---
:1950 Author Organization [facility] Address [address] [place] [address] Care Team Providers Name Role Phone Elsewhere, Pcp Primary Care Provider Unavailable Encounter Details Date Type Department Care Team Description 08/08/2021 Hospital Encounter Department of Radiation La George, Oncology in [facility] [address] [facility] [address] [place] [phone] Social History Tobacco Use Types Packs/Day Years [...] How often do you attend jewish or nondenominational 1 to 4 times per year 06/27/2021 [...] place to sleep or slept in a alf (including now)? Education Answer Date Recorded What is the highest level of school Associate degree: [employer] program 06/27/2021 you have completed or the [...] on filedocumented in this encounter Care Teams Mammalogy Teacher Relationship Specialty Start Date End Date Elsewhere, Pcp PCP - General Family Medicine 01/30/21 documented as of this encounter
--- OUTSIDE RECORDS SUMMARY | 2022-01-15 09:51 | XMS_ITS | Encounter Summary ---
:1950 Author Organization [facility] Address [address] [place] [address] Care Team Providers Name Role Phone Unavailable Primary Care Provider Unavailable Reason for Referral MRI/CAT/PET Scan (Routine) - Closed Specialty Diagnoses / Procedures Referred By Contact Refer red To Contact Radiology Diagnoses Elevated Prostate-Specific Antigen Oseas Oswald M.D. [facility] Procedures MR Prostate without and with IV Contrast [address] [place] [phone] Referral ID Status Reason Start Date Expiration Date Visits Requ ested Visits Authorized [id number] Closed 08/10/2020 08/10/2021 1 1 Reason for Visit MRI/CAT/PET Scan (Routine) - Closed Specialty Diagnoses / Procedures Referred By Contact Refer red To Contact Radiology Diagnoses Elevated Prostate-Specific Antigen Oseas Oswald M.D. [facility] Procedures MR Prostate without and with IV Contrast [address] [place] [address] Referral ID Status Reason Start Date Expiration Date Visits Requ ested Visits Authorized [id number] Closed 08/10/2020 08/10/2021 1 1 Encounter Details Date Type Department Care Team Description 08/17/2020 Hospital Encounter Department of Misha Oswald, Jazmín Farooq M.D. Prostate-Specific [facility] [address] [address] [place] [phone] Social History Tobacco Use Types Packs/Day Years [...] How often do you attend evangelical or shinto 1 to 4 times per [...]
--- OUTSIDE RECORDS SUMMARY | 2022-01-15 09:51 | XMS_ITS | Encounter Summary ---
:1950 Author Organization [facility] Address [address] [place] [address] Care Team Providers Name Role Phone Unavailable Primary Care Provider Unavailable Encounter Details Date Type Department Care Team Description 10/05/2014 - Hospital Encounter [facility]X [facility] Asher Jones 11/29/2014 DILAN Mendez M.D. [address] [place] [address] Social History Tobacco Use Types [...] How often do you attend cheondoism or presybeterian 1 to 4 times per [...] or slept in a assisted (including now)? Sex Assigned at Date Recorded Male 06/27/2021 1:28 PM CDT documented as of this encounter Progress Notes Curt Schilling P.T. - 10/13/2014 3:48 PM CDT Left message for patient to call therapist. Electronically Signed By: CURT SCHILLING On: 10/13/2014 03:49 PM Source: [employer] Document Id: [id number] Curt Schilling P.T. - 10/10/2014 12:00 AM CDT [id number] PHYSICAL THERAPY PROGRESS NOTE CHIEF COMPLAINT Patient [...] lot of relief. IMPRESSION/REPORT/PLAN We did perform WELCOME WAGON HOST/HOSTESS maneuvers for the left horizontal canal. This [...] AM Modified by and Electronically Signed by: CUTR SCHILLING On: 2014 09:43 AM Source: [facility] MHSDOLBEYNONRADSYS Document Id: [id number] Curt Schilling P.T. - 10/09/2014 4:09 PM CDT Left message for patient to return call to check progress. Electronically Signed By: CURT SCHILLING On: 10/09/2014 04:10 PM Source: [facility] POWERCHART Document Id: [id number] documented in this encounter Consult Notes Curt Schilling P.T. - 11/17/2014 12:00 AM CDT [id number] REEVALUATION Patient returns to physical therapy for ongoing symptoms of vertigo. Patient had previously been evaluated on 10/05/2014 under referral of providers from [facility], Dr. [place] Baum. Patient was evaluated in [...] knowledge. PHYSICAL EXAMINATION Today we did Hallpike [place] assessment with the goggles on. Showed a [...] CURT SCHILLING On: 12/07/2014 09:17 AM Source: [facility] MHSDOLBEYNIVETSYS Document Id: [id number] Curt Schilling P.T. - 10/05/2014 12:00 AM CDT [id number] PHYSICAL THERAPY INITIAL EVALUATION The patient was evaluated and treated for vertigo. Patient is a 63-year-old male who was recently hospitalized for an episode of vertigo within the [facility]. He presented with sudden onset of lightheadedness [...] the discharge papers and discharge summary from [facility] provided by Dr. Douglas Baum. His admission date was 09/29/2014 and discharge date with 09/30/2014. Patient reports that he did have a physical therapy appointment scheduled through the [facility] but wanted to get in quicker which is why he presented to [facility] in [place]. The patient reports he also has an [...] 151/101. In the medical record provided by [facility] it was noted that patient is on [...] of a walker or cane. We performed WELCOME WAGON HOST/HOSTESS maneuvers for the left horizontal canal which [...] CURT SCHILLING On: 10/10/2014 11:49 AM Source: [facility] MHSDOLBEYNONRADSYS Document Id: [id number] documented in this encounter Miscellaneous Notes Miscellaneous - Conversion, Historical Provider Ser - 10/18/2014 4:35 PM CDT Coding Summary-Paper Based CODING DATE: 10/18/2014 FINAL [facility] STATUS: Still Patient/Expected to Rtn Oupt [facility] PAYOR: [employer] ADMIT DX: V57.1 Care [...] DOOLEY Date Saved: 10/18/2014 04:35 pm Source: [employer] Document Id: [id number] Miscellaneous - Jareth Arteaga R.N. - 10/05/2014 3:51 PM CDT BP From: JARETH ARTEAGA RN Sent: 10/05/2014 15:51:22 CDT Subject: BP Called to rehab as pt in for eval had BP of 150's/111, hrt rate regular at 61. Pt reports feeling fine with TOBIN this am. Pt see's provider in [place] and has appt on Thursday. He was in the ER on 09-29-14 for dizzyness andnoted to have BP179/111 on admit and still elevated at D/C.BP has been high [id number] and usual provider has been adjusting meds Discussed with POD Emmy Rosenthal and pt advised to call his usual provider today to let them know thatBP has remained elevated and see if they want to see him today or Thursday. Source: [employer] Document Id: [id number] Electronically signed by Conversion, [facility] Cell Geneticist [id number] at 07/28/2016 12:12 AM CDT documented in this encounter Plan of Treatment Not on filedocumented as of this encounter Visit Diagnoses Not on filedocumented in this encounter
--- OUTSIDE RECORDS SUMMARY | 2022-01-15 09:51 | XMS_ITS | Encounter Summary ---
:1950 Author Organization [facility] Address [address] [place] [address] Care Team Providers Name Role Phone Unavailable [...] How often do you attend mormonism or mosque 1 to 4 times per [...] slept in a nursing home (including now)? Sex Assigned at Date [...]
--- OUTSIDE RECORDS SUMMARY | 2022-01-15 09:51 | XMS_ITS | Encounter Summary ---
:1950 Author Organization [facility] Address [address] [place] [address] Care Team Providers Name Role Phone Unavailable Primary Care Provider Unavailable Reason for Referral Outpatient (Routine) - Closed Specialty Diagnoses / Procedures Referred By Contact Refer red To Contact Urology Oseas Oswald M.D. [facility] [address] [place] [phone] Referral ID Status Reason Start Date Expiration Date Visits Requ ested Visits Authorized [id number] Closed 08/10/2020 08/10/2021 1 1 utpatient (Routine) - Closed Specialty Diagnoses / Procedures Referred By Contact Refer red To Contact Diagnoses Elevated Prostate-Specific Antigen Oseas Oswald M.D. [facility] Procedures URO Miscellaneous procedure [address] [place] [address] Referral ID Status Reason Start Date Expiration Date Visits Requ ested Visits Authorized [id number] Closed 08/10/2020 08/10/2021 1 1 RI/CAT/PET Scan (Routine) - Closed Specialty Diagnoses / Procedures Referred By Contact Refer red To Contact Radiology Diagnoses Elevated Prostate-Specific Antigen Oseas Oswald M.D. [facility] Procedures MR Prostate without and with IV Contrast [address], [place] [address] Referral ID Status Reason Start Date Expiration Date Visits Requ ested Visits Authorized [id number] Closed 08/10/2020 08/10/2021 1 1 Reason for Visit Appointment Request (Routine) - Closed Specialty Diagnoses / Procedures Referred By Contact Refer red To Contact Urology Referral ID Status Reason Start Date Expiration Date Visits Requ ested Visits Authorized [id number] Closed 07/03/2020 07/03/2021 1 1 Encounter Details Date Type Department Care Team Description 08/10/2020 Comprehensive Visit [facility] [place] 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 This could be [...] He was offered to do this in [place] or in [place]. This is tentatively being scheduled in [place] on August 30 with follow-up 1 week later. Literature and written instructions are provided. Electronically signed by: Oseas Oswald M.D. 08/10/20 3:39 PM CDT documented in this encounter Plan of Treatment Scheduled Orders Name Type Priority Associated Diagnoses Order S chedusaman URO Miscellaneous Procedure Routine Elevated Expected: procedure [...] Diagnoses Diagnosis Elevated Prostate-Specific Antigen - Lynda soto Elevated Prostate-Specific Antigen documented in this encounter
--- OUTSIDE RECORDS SUMMARY | 2022-01-15 09:51 | XMS_ITS | Encounter Summary ---
:1950 Author Organization [facility] Address [address] [place] [address] Care Team Providers Name Role Phone Unavailable Primary Care Provider Unavailable Encounter Details Date Type Department Care Team Description 11/29/2020 Clinical Communication Department of Urology [place] Gas[place] [address] [facility] [address] [place] [phone] Social History Tobacco Use Types Packs/Day Years [...] often do you attend oriental orthodox or adventist 1 to 4 times per [...]
--- OUTSIDE RECORDS SUMMARY | 2022-01-15 09:51 | XMS_ITS | Encounter Summary ---
:1950 Author Organization [facility] Address [address] [place] [address] Care Team Providers Name Role Phone Elsewhere, Pcp Primary Care Provider Unavailable Reason for Referral Outpatient (Routine) - Closed Specialty Diagnoses / Procedures Referred By Contact Refer red To Contact Diagnoses Primary Malignant Neoplasm Of Prostate (HCC) Silvia Eng M.D. [facility] Procedures URO Urethral cath removal & voiding trial (UCO/VT) [address] [place] [address] Referral ID Status Reason Start Date Expiration Date Visits Requ ested Visits Authorized [id number] Closed 01/31/2021 01/31/2022 1 1 GRADUATE INTERN Encounter Details Date Type Department Care Team Description 01/30/2021 - Hospital Encounter [facility] Lenny Gaspar, Primary Malignant 01/31/2021 Trav Coates M.D. Neoplasm Of Prostate [facility] [address] [place] [address] (HCC) (Primary Dx) Building, [place], [place] Floor [address] [address] [facility] [phone] [place], [place] (Work) [phone] Social History Tobacco Use [...] How often do you attend baptism or adventism 1 to 4 times per [...] Comments Blood Pressure 130/65 01/31/2021 12:30 PM POST GRADUATE INTERN Pulse 72 01/31/2021 12:30 PM POST GRADUATE INTERN Temperature 37.1 ??C (98.8 ??F) 01/31/2021 12:30 PM POST GRADUATE INTERN Respiratory Rate 15 01/31/2021 12:30 PM POST GRADUATE INTERN Oxygen Saturation 93% 01/31/2021 12:30 PM POST GRADUATE INTERN Inhaled Oxygen Concentration - - Weight 84.6 kg (186 lb 8.2 oz) 01/30/2021 8:02 PM POST GRADUATE INTERN Height 169 cm (5' 6.54) 01/30/2021 11:48 AM POST GRADUATE INTERN Body Mass Index 29.62 01/30/2021 11:48 AM POST GRADUATE INTERN documented in this encounter Discharge Summaries Billie Wilkinson M.D., M.B.A. - 01/31/2021 11:46 AM CST DISCHARGE SUMMARY BRIEF OVERVIEW Hospital: [facility] Discharge Provider: Lenny Gaspar M.D. Primary Team: [facility] Urology Surgery - Hubert Primary Care Providers: [...] ROBOTIC-ASSISTED DISSECTION LYMPH NODE, PELVIC.Lenny Gaspar M.D. [facility] ROEI OR DISCHARGE DISPOSITION Home or Self [...] were provided to the patient and caregiver(s). GRADUATE INTERN documented in this encounter Discharge Instructions Discharge InstructionsAnnette Rogers - 01/31/2021 6:52 AM CST You were discharged from the [facility] Urology Surgery - Gaspar Service. Please identify this service name if you call with questions after hospitalization. GRADUATE INTERN AttachmentsThe following attachments cannot be sent through Care Everywhere. Acetaminophen (By mouth) (Marshallese)Diazepam (By mouth) (Marshallese)Laxative, Stimulant (By mouth) (Marshallese)Bacitracin/Neomycin/Polymyxin B (On the skin) (Marshallese)Tramadol (By mouth) (Marshallese)Trospium (By mouth) (Marshallese)documented in this encounter Medications at Time of [...] lancets 2 times daily. 0 05/22/2020 sulfamethoxazole-trimet TAKE 1 TABLET BY 6 tablet 0 202001/31/2022 hoprim (BACTRIM DS) MOUTH TWO TIMES A DAY 800-160 mg per tablet FOR 3 DAYS; BEGIN ONE DAY PRIOR TO CATHETER REMOVAL diazePAM (VALIUM) 5 mg Take 1 tablet (5 mg 6 tablet 0 04/202002/11/2021 tablet total) by mouth 3 (three) times a day as needed (bladder spasms uncontrolled with Trospium). [id number] You may experience 0 04/202002/11/2021 ymyxin (NEOSPORIN) 3.5 pain at the tip of mg-400 unit-5,000 the penis while the unit/gram ointment catheter is indwelling. This may be improved by application of [id number]-[id number] antibiotic ointment as needed and may be [...] -- Take 1 tablet by mouth daily. GRADUATE INTERN documented in this encounter H&P Notes Felipe Walker M.D. - 01/30/2021 12:35 PM CST INTERVAL HISTORY AND PHYSICAL Interval History & Physical completed - see Anesthesia Preevalaution. Felipe Walker M.D. GRADUATE INTERN Source Note - Kalyn Mendenhall APRN, C.NAlvarezPAlvarez, M.S.N. - 01/21/2021 11:00 AM POST GRADUATE INTERN SUBJECTIVE CHIEF COMPLAINT/REASON FOR CONSULT Chief Complaint Patient presents with ??? Pre-op Exam Cory Barton is a 70 y.o. y.o. male who presents today for a pre- operative consultation at the request of Dr Gaspar who plans on performing ROBOTIC-ASSISTED RADICAL PROSTATECTOMY and ROBOTIC-ASSISTED DISSECTION LYMPH NODE - PELVIC on the following date: 01/30/21 at [facility]. Based on information from the patient, the [...] 1. Hx ischemic heart disease: NO (Hx AK, Hx positive exercise test, current complaint of [...] estimated risk of margarette-operative cardiac , non-fatal AK, or non-fatal cardiac arrest: 0 Predictors (0.4% risk of major cardiac event) [place] ABCDEFGHINO Checklist: A (Allergies): NO B (Bleeding [...] as always tobacco cessation. Kalyn Mendenhall APRN, C.N.P., M.S.N. GRADUATE INTERN documented in this encounter Nursing Notes Lien Medina R.N., MagnusM.S.R.N. - 01/31/2021 2:17 PM CST Mr. Barton discharged home self care with his and daughter. He used wheelchair escort when leaving the unit. GRADUATE INTERN Lien Medina R.N., Rima.M.S.R.N. - 01/31/2021 2:15 [...] discharge needs identified Outcome: Adequate for Discharge GRADUATE INTERN documented in this encounter OR Notes Op Note - Lenny Gaspar M.D. - 01/30/2021 2:05 PM CST Pre-op Diagnosis Primary Malignant Neoplasm Of Prostate (HCC) Post-op Diagnosis Primary Malignant Neoplasm Of Prostate (HCC) A licensed loan officer assistant actively participated and was necessary for one [...] a stable condition. ? Lenny Gaspar M.D. GRADUATE INTERN documented in this encounter Miscellaneous Notes Hospital Course - Billie Wilkinson M.D., M.B.A. - 01/30/2021 11:11 AM POST GRADUATE INTERN PROCEDURE: Patient underwent RARP, lymph node dissection [...] gross deficits DISCHARGE LABS: H.7 Cr: 1.55 GRADUATE INTERN documented in this encounter Plan of Treatment Scheduled Orders Name Type Priority Associated Diagnoses Order S chedule URO Urethral cath Procedure Routine Primary Malignant Expec humble: removal & voiding Neoplasm Of Prostate , Expires: trial (UCO/VT) (HCC) 04/30/2022 documented as of this encounter Procedures Procedure Name Priority Date/Time Associated Comments Diagnosis CBC WITHOUT Routine 01/31/2021 12:36 Results for this DIFFERENTIAL, B AM POST GRADUATE INTERN procedure ar e in the results section. BASIC METABOLIC PANEL, Routine 01/31/2021 12:36 R esults for this S/P AM POST GRADUATE INTERN procedure are i n the results section. ADULT OXYGEN THERAPY Routine 01/30/2021 9:38 PM POST GRADUATE INTERN ADULT OXYGEN THERAPY Routine 01/30/2021 7:34 PM POST GRADUATE INTERN ADULT OXYGEN THERAPY Routine 01/30/2021 7:34 PM POST GRADUATE INTERN SURGICAL PATHOLOGY, Routine 01/30/2021 6:25 PM Primary Maligna nt Results for this FROZEN LAB POST GRADUATE INTERN Neoplasm Of procedure are i n Prostate (HCC) the results section. ROBOTIC-ASSISTED 01/30/2021 12:48 Primary Malignant DISSECTION LYMPH NODE PM POST GRADUATE INTERN Neoplasm Of - PELVIC Prostate (HCC) ROBOTIC-ASSISTED 01/30/2021 12:48 Primary Malignant RADICAL PROSTATECTOMY PM POST GRADUATE INTERN Neoplasm Of Prostate (HCC) documented in this encounter Results (ABNORMAL) CBC without Differential (01/31/2021 12:36 AM POST GRADUATE INTERN) [facility] gist Method Time Signature Hemoglobin 13.7 13.2 - 01/31/2021 DTL 16.6 g/dL 1:22 AM POST GRADUATE INTERN Hematocrit 40.6 38.3 - 01/31/2021 DTL 48.6 % 1:22 AM POST GRADUATE INTERN Erythrocytes 4.43 4.35 - 01/31/2021 DTL 5.65 1:22 AM POST GRADUATE INTERN x10(12)/L MCV 91.6 78.2 - 01/31/2021 DTL 97.9 fL 1:22 AM POST GRADUATE INTERN RBC Distrib Width 12.4 11.8 - 01/31/2021 DTL 14.5 % 1:22 AM POST GRADUATE INTERN Platelet Count 181 135 - 317 01/31/2021 DTL x10(9)/L 1:22 AM POST GRADUATE INTERN Leukocytes 14.8 (H) 3.4 - 9.6 01/31/2021 DTL x10(9)/L 1:22 AM POST GRADUATE INTERN Specimen Anatomical Collection Method Collection Time Receive d Time (Source) Location / / Volume Laterality Blood (Blood, 01/31/2021 12:36 01/31/2021 1:16 Venous) AM POST GRADUATE INTERN AM POST GRADUATE INTERN Blilie Wilkinson M.D., M.B.A. LAB BLOOD ADD-ON Performing Organization Address City/State/ZIP Code Phon e Number [facility] - [address] [place], [place] [address] [facility] [place] [address] [facility] [address] (ABNORMAL) Basic Metabolic Panel (01/31/2021 12:36 AM POST GRADUATE INTERN) Analysis Performed At Patho logist Time Signature Potassium, S 3.2 (L) 3.6 - 5.2 01/31/2021 DTL mmol/L 1:39 AM POST GRADUATE INTERN Sodium, S 144 135 - 145 01/31/2021 DTL mmol/L 1:39 AM POST GRADUATE INTERN Chloride, S 102 98 - 107 01/31/2021 DTL mmol/L 1:39 AM POST GRADUATE INTERN Bicarbonate, S 25 22 - 29 01/31/2021 DTL mmol/L 1:39 AM POST GRADUATE INTERN Anion Gap 17 (H) 7 - 15 01/31/2021 DTL 1:39 AM POST GRADUATE INTERN BUN (Blood Urea 28 (H) 8 - 24 01/31/2021 DTL Nitrogen), S mg/dL 1:39 AM POST GRADUATE INTERN Creatinine 1.55 (H) 0.74 - 01/31/2021 DTL 1.35 mg/dL 1:39 AM POST GRADUATE INTERN eGFR-Non 44 (L) >=60 01/31/2021 DTL Black/ mL/min/BSA 1:39 AM POST GRADUATE INTERN Mongolian Comment: ----ADDITIONAL INFORMATION---- Estimated GFR calculated using the 2009 CKD_EPI creatinine equation. eGFR-Black/ 51 (L) >=60 mL/min/BSA 2020 1:39 AM POST GRADUATE INTERN DTL Comment: ----ADDITIONAL INFORMATION---- Estimated GFR calculated using the 2009 CKD_EPI creatinine equation. Calcium, Total, S 8.6 (L) 8.8 - 10.2 mg/dL 01/31/2021 1:39 AM POST GRADUATE INTERN DTL Glucose, S 206 (H) 70 - 140 mg/dL 01/31/2021 1:39 AM POST GRADUATE INTERN D TL Specimen Anatomical Collection Method Collection Time Receive d Time (Source) Location / / Volume Laterality Blood (Blood, 01/31/2021 12:36 01/31/2021 1:25 Venous) AM POST GRADUATE INTERN AM POST GRADUATE INTERN Billie Wilkinson M.D., M.B.A. LAB BLOOD ADD-ON Performing Organization Address City/State/ZIP Code Phon e Number [facility] - [address] [place], [place] [address] [facility] [place] [address] [facility] [address] Surgical Pathology, Frozen Lab (01/30/2021 6:25 PM POST GRADUATE INTERN) Component Value Ref Test Analysis Performed Pathologis t Range Method Time At Signature 02/01/2021 METH 3:30 PM POST GRADUATE INTERN Participated in Stacey Erwin, 02/01/2021 METH the M.DAlvarez -Pathology 3:30 PM Interpretation Fellow POST GRADUATE INTERN Report Annelise Jeff M.D., Ph.D. [phone] 02/02/20 21 METH electronically 3:30 PM signed by POST GRADUATE INTERN I verify that I have examined all relevant slides/materials for the specimen(s) and rendered or confirmed the diagnosis. Gross Description A. ??Received fresh and placed in formalin labele d 02/01/2021 METH bilateral 3:30 PM pelvic lymph nodes is a 3.6 x 3.5 x 1.6 cm aggregate of POST GRADUATE INTERN adipose and lymphatic tissue. ??Multiple (6) potential lymph nodes are identified. ??All lymph nodes are submitted for permanent sections only. ??Grossed by DEBBIE. Carmen. ??Received fresh and placed in formalin labeled prostate is an 108 gram, 6.2 (S-I) x 6.4 (A-P) x 6.6 (R-L) cm radical prostatectomy with nodular hypertrophy. ??The specimen is inked, and the prostatic apex and bladder neck margins are submitted perpendicularly. ??Grossly, there is a 3.1 x 1.9 x 1.8 cm yellow mass involving the left mid to inferior posterior prostate. ??Senior Accounting Analyst tissue submitted for permanent sections only. ??Grossed by MIC. Block Summary A Bilateral pelvic lymph nodes 02/01 METH A1 Bilateral pelvic lymph nodes 1of2(A1) 3:30 PM A2 Bilateral pelvic lymph nodes 2of2(A1) POST GRADUATE INTERN A3 Bilateral pelvic lymph nodes 1of2(A2) A4 [...] A. ??Lymph nodes, bilateral pelvic, dissection: ??Multiple POST GRADUATE INTERN (6) lymph nodes are negative for metastatic carcinoma. B. ??Prostate gland, radical prostatectomy: ??Adenocarcinoma ([place] pattern 4+5, grade group 5) is identified [...] Seen in consultation with: Wilner Ren M.D. [phone] SYNOPTIC REPORT: ??Prostate Procedure: ??Radical prostatectomy Prostate Size: 108 gram, 6.2 (S-I) x 6.4 (A-P) x 6.6 (R-L) cm Histologic Type: ??Acinar adenocarcinoma Histologic Grade ?? Grade Group and [place] Score ?Grade Group 3 (Valencia Score 4+5=9) ?Minor Tertiary Pattern 5 (less than 5%): ??Not applicable ?Percentage of Pattern 4 in Valencia score 7: ??Not applicable ?? Intraductal Carcinoma [...] Volume Laterality Tissue (Prostate) 01/30/2021 7:16 PM POST GRADUATE INTERN Tissue (Lymph 01/30/2021 6:25 PM Node) POST GRADUATE INTERN Narrative This result has an attachment that is no t available. Lenny Gaspar M.D. LAB SURG PATH ORDERABLES Performing Organization Address City/State/ZIP Code Phon e Number [facility] - [address] [place], [place] [address] [facility] [place] [address] [facility] [address] documented in [...] 8:21 PM 1,000 mg 400 mL/hr mg POST GRADUATE INTERN 1,000 mg, intravenous, at 400 mL/hr, Administer [...] 1,000 mg (TYLENOL) Given 01/31/2021 1:41 PM POST GRADUATE INTERN 1,000 mg 1,000 mg, oral, Every 6 hours, First dose on Jennifer 01/31/21 at 0200 Given 01/31/2021 7:36 AM POST GRADUATE INTERN 1,000 mg Given 01/31/2021 2:07 AM POST GRADUATE INTERN 1,000 mg acetaminophen tablet 1,000 mg (TYLENOL) Given 01/30/2021 1:04 PM POST GRADUATE INTERN 1,000 mg 1,000 mg, oral, Once, On Thu01/30/21 at 1300, For 1 dose, Pre-Op, PreOp give in preprocedural area. amLODIPine tablet 10 mg (NORVASC) Given 01/31/2021 8:54 AM POST GRADUATE INTERN 10 mg 10 mg, oral, Daily, First dose on Jennifer 01/31/21 at 0900 bacitracin zinc 500 unit/gram ointment Given 01/31/2021 8:54 AM POST GRADUATE INTERN 1 packet packet 1 packet 1 packet (1 application), topical, 3 times daily, First dose on Thu01/30/21 at 2145, Apply to tip of penis. Given 01/30/2021 10:50 PM POST GRADUATE INTERN 1 packet caffeine-sodium benzoate injection 250 m g Given 01/30/2021 8:19 PM POST GRADUATE INTERN 250 mg 250 mg, intravenous, Once, On Thu01/30/21 at 2015, For 1 dose, PACU (only) ceFAZolin in dextrose (iso-os) IVPB 2 New Bag 01/31/2021 7:36 AM POST GRADUATE INTERN 2 g 200 mL/hr g (ANCEF) 2 g, intravenous, at 200 mL/hr, Administer over 30 Minutes, Every 8 hours, First dose on Jennifer 01/31/21 at 0000, For 2 doses, Start within 8 hours of last IV dose., Drug Monitoring Program: Pharmacist to adjust medication dosing based on indication and drug clearance factors., Indications: Prophylaxis, surgical New Bag 01/31/2021 12:11 AM POST GRADUATE INTERN 2 g 200 mL/hr celecoxib capsule 200 mg (CeleBREX) Given 01/30/2021 1:04 PM POST GRADUATE INTERN 200 mg 200 mg, oral, Once, On [...] rd. heparin (porcine) Given 01/31/2021 6:16 AM POST GRADUATE INTERN 5,000 Units Right Upper Arm injection 5,000 Units (Back) 5,000 Units, subcutaneous, Every 8 hours scheduled, First dose on Thu01/30/21 at 2200 Given 01/30/2021 10:49 PM POST GRADUATE INTERN 5,000 Units Righ t Upper Arm (Back) lactated ringers New Bag 01/31/2021 6:15 AM POST GRADUATE INTERN 125 mL/hr 125 mL/hr 125 mL/hr, intravenous, Continuous, Starting on Thu01/30/21 at 2145, Continue IV fluids from operating room at 125 ml/hour New Bag 01/30/2021 9:40 PM POST GRADUATE INTERN 125 mL/hr 125 mL/hr lactated ringers Continued from OR 01/30/2021 7:37 PM POST GRADUATE INTERN 20 mL/hr 20 mL/hr 20 mL/hr, intravenous, Continuous, Starting on Thu01/30/21 at 1845, PACU & Post-Op metoprolol tablet 50 mg (LOPRESSOR) Given 01/31/2021 8:54 AM POST GRADUATE INTERN 50 mg 50 mg, oral, 2 times daily, First dose on Thu01/30/21 at 2145 Given 01/30/2021 10:49 PM POST GRADUATE INTERN 50 mg NaCl 0.9% infusion 10-250 mL/hr, [...] mg (DITROPAN- XL) Given 01/30/2021 1:04 PM POST GRADUATE INTERN 10 mg 10 mg, oral, Once, On Thu01/30/21 at 1300, For 1 dose, Pre-Op, PreOp give in preprocedural area. Swallow whole. Do NOT crush, chew, or split tablet. oxyCODONE 12 hr tablet 10 mg (OxyCONTIN) Given 01/30/2021 1:04 PM POST GRADUATE INTERN 10 mg 10 mg, oral, Once, On Thu01/30/21 at 1300, For 1 dose, Pre-Op, PreOp give in preprocedural area. Swallow whole. Do NOT crush, chew, or split tablet. potassium chloride ER tablet 40 mEq Given 01/31/2021 7:18 AM POST GRADUATE INTERN 40 mEq (KLORCON/K-TAB) 40 mEq, oral, Once, On Jennifer 01/31/21 at 0645, For 1 dose, For K 3-3.4 mEq/L - give total of 40 mEq Swallow whole. Do NOT crush, chew, or split tablet., Monitor the following for replacement: Potassium, Replace Potassium per: Standard Schedule sennosides-docusate sodium 8.6-50 mg per Given 01/31/2021 8:54 A M POST GRADUATE INTERN 1 tablet tablet 1 tablet (SENOKOT-S) 1 tablet, oral, 2 times daily, First dose on Thu01/30/21 at 2145, Do not give if patient has diarrhea. Given 01/30/2021 10:49 PM POST GRADUATE INTERN 1 tablet sodium chloride 0.9 % injection [...] injection 3 mL Given 01/31/2021 8:54 AM POST GRADUATE INTERN 3 mL 3 mL, intravenous, Every 12 hours scheduled, First dose on Jennifer 01/31/21 at 0900, Peripheral Intravenous Catheter and Rapid Infusion Catheter: When no infusion to maintain patency. triamterene-hydroCHLOROthiazide 37.5-25 mg Given 01/31 8:54 AM POST GRADUATE INTERN 1 tablet per tablet 1 tablet (MAXZIDE-25) 1 tablet, oral, Daily, First dose on Thu01/31/21 at 0900 trospium tablet 20 mg (SANCTURA) Given 01/31/2021 6:16 AM POST GRADUATE INTERN 20 mg 20 mg, oral, 2 times daily before breakfast and dinner, First dose on Thu01/31/21 at 0700, trospium was interchanged for trospium XR, Restriction Criteria (Pharmacy will review and approve if criteria met): Use in patients 65 years of age or older documented in this encounter Active and Recently Administered Medications Times are shown in POST GRADUATE INTERN. Scheduled Medication Order 01/29/2021 01/30/2021 01/31/2021 acetaminophen tablet 1,000 mg (TYLENOL) 0207 (Given - Provider: Cristina Horner R.N.)0736 (Given - Provider: Funmi Sarkar R.N.)1341 (Given - Provider: Lien Medina RAaliyah, C.M.S.R.N.) 1,000 mg, oral, Every 6 hours, First dose on Thu01/31/21 at 0200 acetaminophen tablet 1,000 mg (TYLENOL) (COMPLETED) 1304 (Given - Provider: Lisa Tran R.NAlvarez) 1,000 mg, oral, Once, On Thu01/30/21 at 1300, For 1 dose, Pre-Op, PreOp give in preprocedural area. amLODIPine tablet 10 mg (NORVASC) 0854 (Given - Provider: Lachelle Taylor R.NAlvarez) 10 mg, oral, Daily, First dose on Thu01/31/21 at 0900 bacitracin zinc 500 unit/gram ointment packet 1 packet 2250 (Given - Provider: Rubia Hagan RAlvarezNAlvarez) 0854 (Given - Provider: Angle Lynn)1400 (Due) 1 packet (1 application), topical, 3 jenniffer es daily, First dose on Thu01/30/21 at 2145, Apply to tip of penis. caffeine-sodium benzoate injection 250 mg (COMPLETED) 2019 (Given - Provider: Ai Petit R.NAlvarez) 250 mg, intravenous, Once, On Thu01/30/21 at 2015, For 1 dose, P ACU (only) ceFAZolin in dextrose (iso-os) IVPB 2 g (ANCEF) (COMPLETED) 0011 (New Bag - Provider: Cristina Horner RAlvarezN.)0736 (New Bag - Provider: Funmi Sarkar RAlvarezNAlvarez) 2 g, intravenous, at 200 mL/hr, Administ [...] 1403 (Given - Provider: Damien Gill APRN, BLADDER TRIMMER)1653 (Given - Provider: Gurinder Tate APRN, EDGAR) 2 g, intravenous, at 20 mL/hr, Administe r over 30 Minutes, Once, On Thu01/30/21 at 1300, For 1 dose, Intra-Op, If needed, reconstitute vial per package insert instructions. See IVAG for administration g uidelines. , Drug Monitoring Program: tyronest to adjust medication dosing based on indication and drug clearance factors., Indications: Prophylaxis, surgical celecoxib capsule 200 mg (CeleBREX) (COMPLETED) 1304 (Given - Provider: Lisa Tran R.NAlvarez) 200 mg, oral, Once, On Thu01/30/21 at 1300, For 1 dose, Pre-Op heparin (porcine) injection 5,000 Units 2249 (Given - Provider: Rubia Hagan RAlvarezNAlvarez) 0616 (Given - Provider: Cristina Horner RAlvarezNAlvarez)1400 (Due) 5,000 Units, subcutaneous, Every 8 hours [...] at 2100 metoprolol tablet 50 mg (LOPRESSOR) 2248 (Given - Provider: Rubia Hagan R.N.) 0854 (Given - Provider: nAgle Lynn) 50 mg, oral, 2 times daily, [...] chloride ER tablet 40 mEq (KLORCON/K-TAB) (COMPLETED) 717 (Given - Provider: Lachelle Taylor R.N.) 40 mEq, oral, Once, On Thu01/31/21 at 06 45, For 1 dose, For K 3-3.4 mEq/L - give total of 40 mEq Swallow whole. Do NOT crush, chew, or split tablet., Monitor the following for replacement: Potassium, Replace Potassium per: Standard Schedule sennosides-docusate sodium 8.6-50 mg per tablet 1 tablet (SE NOKOT-S) 2248 (Given - Provider: Rubia Hagan R.N.) 0854 [...] room at 125 ml/hour lactated ringers (CANCELED) 1936 (Contin ued from OR - Provider: Ai Petit RAaliyah - Comment: 400 in bag) 20 mL/hr, intravenous, Continuous, Start ing on Thu01/30/21 at 1845, PACU & Post-Op PRN Medication Order 01/29/2021 01/30/2021 01/31/2021 acetaminophen injection 1,000 mg (COMPLETED) 2020 (New Bag - Provider: Ai Petit RAlvarezNAlvarez) 1,000 mg, intravenous, at 400 mL/hr, Adm [...] M.D.) As needed, Starting on Thu01/30/21 at 1909, Intra-Op benzocaine-menthoL 15-3.6 mg per lozenge 1 lozenge (CEPACOL) 1 lozenge, oral, As needed, sore throat, Starting on Thu01/30/21 at 2137 bisacodyL suppository 10 mg (DULCOLAX) 10 mg, rectal, Daily PRN, constipation, Starting on Thu01/30/21 at 2137, Ordered sequence of administration: polyethylene glycol, then bisacodyl until BM achieved. bupivacaine HCl 0.25 % (2.5 mg/mL) injection (MARCAINE) (CAN CELED) 1902 (Given - Provider: Lenny Gaspar M.D.) As needed, Starting on Thu01/30/21 at 190, Intra-Op D5W infusion 10-250 mL/hr, intravenous, As needed, Me dications Incompatible with 0.9% NaCL, Starting on Thu01/30/21 at 2138, Infuse at [...] hours PRN, itching, Starting on Thu01/30/21 at 2138 lactated Ringer's bolus 500 mL 500 mL, intravenous, at 500 mL/hr, Admin ister over 1 Hours, As needed, Urinary output less than 30 mL/hour x 2 consecutive hours, Starting on Thu01/30/21 at 2138, For 1 dose, May repeat x 1 [...] na usea, vomiting, Starting on Thu01/30/21 at 213, For 48 hours, Reassess for nausea or [...] Rapid Infusion Catheter, Starting on Thu01/30/21 at 2139, Prior to blood sampling, post blood transfusion or post blood sampling. sodium chloride 0.9 % injection 3 mL 3 mL, intravenous, As needed, line care, Peripheral Intravenous Catheter and Rapid Infusion Catheter, Starting on Thu01/30/21 at 2139, Prior to and following infusion and between multiple consecutive infusions. traMADoL tablet 50 mg (ULTRAM) 50 mg, oral, Every 6 hours PRN, moderate pain or score 4-6 of 10, Starting on Thu01/30/21 at 2139 documented in this encounter Care Teams Commercial Management Accountant Relationship Specialty Start Date End Date Elsewhere, Pcp PCP - General Family Medicine 01/30/21 documented as of this encounter
--- OUTSIDE RECORDS SUMMARY | 2022-01-15 09:51 | XMS_ITS | Encounter Summary ---
:1950 Author Organization [facility] Address [address] [place] [address] Care Team Providers Name Role Phone Elsewhere, Pcp Primary Care Provider Unavailable Reason for Visit Reason Comments Pre-op Exam Appointment Request (Routine) - Closed Specialty Diagnoses / Procedures Referred By Contact Refer red To Contact Family Medicine Referral ID Status Reason Start Date Expiration Date Visits Requ ested Visits Authorized [id number] Closed 11/28/2020 11/28/2021 1 1 Encounter Details Date Type Department Care Team Description 01/21/2021 Office Visit Department of Family Kalyn Mendenhall Pr eoperative Exam Medicine, [place] [facility], (Primary Dx) Clinic, in [facility] [address] [place] [phone] Social History Tobacco Use Types Packs/Day Years [...] How often do you attend confucianist or latter-day 1 to 4 times per [...] Comments Blood Pressure 143/80 01/21/2021 11:02 AM ACTIVITIES ATTENDANT Pulse 78 01/21/2021 11:02 AM ACTIVITIES ATTENDANT Temperature 36.7 ??C (98.1 ??F) 01/21/2021 11:02 AM ACTIVITIES ATTENDANT Respiratory Rate - - Oxygen Saturation - [...] PELVIC on the following date: 01/30/21 at [facility]. Based on information from the patient, [...] 1. Hx ischemic heart disease: NO (Hx [place], Hx positive exercise test, current complaint of [...] estimated risk of margarette-operative cardiac , non-fatal [place], or non-fatal cardiac arrest: 0 Predictors (0.4% risk of major cardiac event) [place] ABCDEFGHINO Checklist: A (Allergies): NO B (Bleeding [...] as always tobacco cessation. Kalyn Mendenhall APRN, C.NVamshi., M.S.N. VITIES ATTENDANT documented in this encounter Plan of Treatment Not on filedocumented as of this encounter Visit Diagnoses Diagnosis Preoperative Exam - Primary documented in this encounter Care Teams Shoe Singer Relationship Specialty Start Date End Date Elsewhere, Pcp PCP - General Family Medicine 01/21/21 01/29/21 documented as of this encounter
--- OUTSIDE RECORDS SUMMARY | 2022-01-15 09:51 | XMS_ITS | Encounter Summary ---
:1950 Author Organization [facility] Address [address] [place] [id number] Care Team Providers Name Role Phone Elsewhere, Pcp Primary Care Provider Unavailable Encounter Details Date Type Department Care Team Description 01/30/2021 Anesthesia Event [facility] Felipe Jade M.D. [address] [place] [phone] [address] [facility] [address] [place] [phone] [place] [phone] Anesthesia Record Procedure Summary Procedure Name [...] h andoff to the receiving staff during [facility] we 1. Identified the patient 2. [...] R.N. Mogren, Amy E, (created via procedure RN CHILD, CRN A documentation); Mask Ventilation: Oral/Nasal airway [...] 06/27/2021 relatives? How often do you attend amish or tenriism 1 to 4 times per year 06/27/2021 services? Do you belong to any clubs or organizations such No 06/27/2021 as amish groups, unions, fraternal or athletic groups, or [...] Procedure Summary Date: 01/30/21 Room / Location: [place] [address] / [facility] in [place], [place] Anesthesia Start: 8 Anesthesia Stop: 1937 [...] Post Op nausea/vomiting: none Hydration status: euvolemic ONAL FINANCIAL ADVISOR Anesthesia Procedure Notes - Liz Ramirez R.N. - 01/30/2021 1:38 PM PERSONAL FINANCIAL ADVISOR Associated Order(s): Airway Airway Date/Time: 01/30/2021 1:29 [...] successful Airway event: no complications ATTESTATION STATEMENT ONAL FINANCIAL ADVISOR Anesthesia Preprocedure Evaluation - Felipe Walker M.D. - 01/30/2021 12:36 PM CST Preprocedure Anesthesia & H&P Assessment Procedure Summary Date/Time: 01/30/21 1302 Procedures: ROBOTIC-ASSISTED RADICAL PROSTATECTOMY. (N/A ) ROBOTIC-ASSISTED DISSECTION LYMPH NODE, PELVIC. (N/A ) Diagnosis: Primary Malignant Neoplasm Of Prostate (HCC) [C61] Pre-op diagnosis: Primary Malignant Neoplasm Of Prostate (HCC) [C61]. Location: [place] [address] / [facility] in [place], [place] Providers: Lenny Gaspar M.D. Pertinent components [...] with patient /legal guardian or through an radio sportscaster. Risks/Benefits/Alternatives of Blood transfusion discussed with patient / legal guardian, including an opportunity to ask questions and/or decline some or all transfusion therapies. The patient / legalguardian consented to the use of all blood products, as deemed medically necessary Approval to Proceed: approved for anesthesia ONAL FINANCIAL ADVISOR documented in this encounter Plan of Treatment Not on filedocumented as of this encounter Procedures Procedure Name Priority Date/Time Associated Comments Diagnosis LDA ANE ENDOTRACHEAL Routine 01/30/2021 1:29 PM R esults for this AIRWAY PERSONAL FINANCIAL ADVISOR procedure are i n the results section. documented in this encounter Results LDA ANE ENDOTRACHEAL AIRWAY (01/30/2021 1:29 PM PERSONAL FINANCIAL ADVISOR) Narrative Liz Ramirez R.N. - 01/30/2021 1:29 P M PERSONAL FINANCIAL ADVISOR Liz Ramirez R.N. ? 01/30/2021 ??1:39 PM [...] 2 g (ANCEF) Given 01/30/2021 4:53 PM PERSONAL FINANCIAL ADVISOR 2 g 2 g, intravenous, at 20 mL/hr, Administer over 30 Minutes, Once, On Thu01/30/21 at 1300, For 1 dose, Intra-Op, If needed, reconstitute vial per package insert instructions. See IVAG for administration guidelines. , Drug Monitoring Program: Pharmacist to adjust medication dosing based on indication and drug clearance factors., Indications: Prophylaxis, surgical Given 01/30/2021 2:03 PM PERSONAL FINANCIAL ADVISOR 2 g dexAMETHasone injection (DECADRON) Given 01/30/2021 1:23 PM PERSONAL FINANCIAL ADVISOR 8 mg intravenous, As needed, Starting on Thu01/30/21 at 1323, Anesthesia Intra-op ePHEDrine (PF) injection Given 01/30/2021 4:14 PM PERSONAL FINANCIAL ADVISOR 5 mg intravenous, As needed, Starting on Thu01/30/21 at 1400, Anesthesia Intra-op Given 01/30/2021 3:51 PM PERSONAL FINANCIAL ADVISOR 5 mg Given 01/30/2021 3:23 PM PERSONAL FINANCIAL ADVISOR 5 mg fentaNYL injection (SUBLIMAZE) Given 01/30/2021 1:23 PM PERSONAL FINANCIAL ADVISOR 50 mcg intravenous, As needed, Starting on Thu01/30/21 at 1323, Anesthesia Intra-op glycopyrrolate injection (ROBINUL) Given 01/30/2021 1:58 PM PERSONAL FINANCIAL ADVISOR 0.2 mg intravenous, As needed, Starting on Thu01/30/21 at 1345, Anesthesia Intra-op Given 01/30/2021 1:45 PM PERSONAL FINANCIAL ADVISOR 0.2 mg heparin (porcine) injection 5,000 Units Given 01/30/2021 1:34 PM PERSONAL FINANCIAL ADVISOR 5,000 Units 5,000 Units, subcutaneous, Once, On Thu01/30/21 at 1300, For 1 dose, Intra-Op, Administer prior to induction of anesthesia. HYDROmorphone (PF) injection (DILAUDID) Given 01/30/2021 2:55 PM PERSONAL FINANCIAL ADVISOR 0.4 mg intravenous, As needed, Starting on Thu01/30/21 at 1424, Anesthesia Intra-op Given 01/30/2021 2:24 PM PERSONAL FINANCIAL ADVISOR 0.6 mg lactated ringers New Bag 01/30/2021 6:20 PM PERSONAL FINANCIAL ADVISOR intravenous, Continuous Infusion: Per Instructions PRN, Starting on Thu01/30/21 at 1321, Anesthesia Intra-op New Bag 01/30/2021 1:21 PM PERSONAL FINANCIAL ADVISOR lactated ringers New Bag 01/30/2021 6:34 PM PERSONAL FINANCIAL ADVISOR intravenous, Continuous Infusion: Per Instructions PRN, Starting on Thu01/30/21 at 1327, Anesthesia Intra-op New Bag 01/30/2021 1:27 PM PERSONAL FINANCIAL ADVISOR lidocaine (PF) (cardiac) injection Given 01/30/2021 1:23 PM PERSONAL FINANCIAL ADVISOR 100 mg intravenous, As needed, Starting on Thu01/30/21 at 1323, Anesthesia Intra-op propofoL injection (DIPRIVAN) Given 01/30/2021 1:29 PM PERSONAL FINANCIAL ADVISOR 50 mg intravenous, As needed, Starting on Thu01/30/21 at 1323, Anesthesia Intra-op Given 01/30/2021 1:25 PM PERSONAL FINANCIAL ADVISOR 100 mg Given 01/30/2021 1:23 PM PERSONAL FINANCIAL ADVISOR 100 mg rocuronium injection (ZEMURON) Given 01/30/2021 4:42 PM PERSONAL FINANCIAL ADVISOR 10 mg intravenous, As needed, Starting on Thu01/30/21 at 1324, Anesthesia Intra-op Given 01/30/2021 3:23 PM PERSONAL FINANCIAL ADVISOR 20 mg Given 01/30/2021 2:03 PM PERSONAL FINANCIAL ADVISOR 50 mg sugammadex injection (BRIDION) Given 01/30/2021 6:45 PM PERSONAL FINANCIAL ADVISOR 200 mg intravenous, As needed, Starting on Thu01/30/21 at 1845, Anesthesia Intra-op documented in this encounter Care Teams Hospital Nurse Relationship Specialty Start Date End Date Elsewhere, Pcp PCP - General Family Medicine 01/30/21 documented as of this encounter
--- OUTSIDE RECORDS SUMMARY | 2022-01-15 09:51 | XMS_ITS | Encounter Summary ---
:1950 Author Organization [facility] Address [address] [place] [address] Care Team Providers Name Role Phone Elsewhere, Pcp Primary Care Provider Unavailable Encounter Details Date Type Department Care Team Description 01/30/2021 Surgery [facility] OR Lenny Gaspar, ROBOTIC-ASSISTED RADICAL [address] [place] [address] [address] [facility] [phone] [place] [address] Social History Tobacco Use Types Packs/Day Years [...] 06/27/2021 relatives? How often do you attend latter day or baptist 1 to 4 times per year 06/27/2021 services? Do you belong to any clubs or organizations such No 06/27/2021 as latter day groups, unions, fraternal or athletic groups, or [...] or the highest technical, or vocational p [employer] degree you have received? Sex Assigned at Date Recorded Male 06/27/2021 1:28 PM CDT documented as of this encounter Last Filed Vital Signs Vital Sign Reading Time Taken Comments Blood Pressure 131/73 01/30/2021 7:45 PM PEDIATRIC OCCUPATIONAL THERAPIST Pulse 69 01/30/2021 7:45 PM PEDIATRIC OCCUPATIONAL THERAPIST Temperature 36.5 ??C (97.7 ??F) 01/30/2021 7:30 PM PEDIATRIC OCCUPATIONAL THERAPIST Respiratory Rate 17 01/30/2021 7:45 PM PEDIATRIC OCCUPATIONAL THERAPIST Oxygen Saturation 95% 01/30/2021 7:45 PM PEDIATRIC OCCUPATIONAL THERAPIST Inhaled Oxygen Concentration - - Weight 84.6 kg (186 lb 8.2 oz) 01/30/2021 11:48 AM PEDIATRIC OCCUPATIONAL THERAPIST Height 169 cm (5' 6.54) 01/30/2021 11:48 AM PEDIATRIC OCCUPATIONAL THERAPIST Body Mass Index 29.62 01/30/2021 11:48 AM PEDIATRIC OCCUPATIONAL THERAPIST documented in this encounter Discharge Summaries Billie Wilkinson M.D., M.B.A. - 01/31/2021 11:46 AM CST DISCHARGE SUMMARY BRIEF OVERVIEW Hospital: [facility] Discharge Provider: Lenny Gaspar M.D. Primary Team: [facility] Urology Surgery - Hubert Primary Care [...] Scheduled Appointments 02/11/2021 8:00 AM URO NURSE [address] [place] [address] Urology For appointment details refer to your [...] were provided to the patient and caregiver(s). ATRIC OCCUPATIONAL THERAPIST documented in this encounter Discharge Instructions Discharge InstructionsAnnette Rogers - 01/31/2021 6:52 AM CST You were discharged from the [facility] Urology Surgery - Gaspar Service. Please identify this service name if you call with questions after hospitalization. ATRIC OCCUPATIONAL THERAPIST AttachmentsThe following attachments cannot be sent through Care Everywhere. Acetaminophen (By mouth) (Martiniquais)Diazepam (By mouth) (Martiniquais)Laxative, Stimulant (By mouth) (Martiniquais)Bacitracin/Neomycin/Polymyxin B (On the skin) (Martiniquais)Tramadol (By mouth) (Martiniquais)Trospium (By mouth) (Martiniquais)documented in this encounter Medications at Time of [...] as needed (bladder spasms uncontrolled with Trospium). [id number]-oil You may experience 0 04/202002/11/2021 ymyxin (NEOSPORIN) 3.5 pain at the tip of mg-400 unit-5,000 the penis while the unit/gram ointment catheter is indwelling. This may be improved by application of lwej-rlz-omjeamq antibiotic ointment as needed and may be [...] -- Take 1 tablet by mouth daily. ATRIC OCCUPATIONAL THERAPIST documented in this encounter H&P Notes Felipe Walker M.D. - 01/30/2021 12:35 PM CST INTERVAL HISTORY AND PHYSICAL Interval History & Physical completed - see Anesthesia Preevalaution. Felipe Walker M.D. ATRIC OCCUPATIONAL THERAPIST Source Note - Kalyn Mendenhall APRN, C.N.P., M.S.N. - 01/21/2021 11:00 AM PEDIATRIC OCCUPATIONAL THERAPIST SUBJECTIVE CHIEF COMPLAINT/REASON FOR CONSULT Chief Complaint Patient presents with ??? Pre-op Exam Cory Barton is a 70 y.o. y.o. male who presents today for a pre- operative consultation at the request of Dr Gaspar who plans on performing ROBOTIC-ASSISTED RADICAL PROSTATECTOMY and ROBOTIC-ASSISTED DISSECTION LYMPH NODE - PELVIC on the following date: 01/30/21 at [facility]. Based on information from the [...] 1. Hx ischemic heart disease: NO (Hx AZ, Hx positive exercise test, current complaint of [...] estimated risk of margarette-operative cardiac , non-fatal [place], or non-fatal cardiac arrest: 0 Predictors (0.4% risk of major cardiac event) [place] ABCDEFGHINO Checklist: A (Allergies): NO B (Bleeding [...] as always tobacco cessation. Kalyn Mendenhall APRN, C.N.Ramesh., M.S.N. ATRIC OCCUPATIONAL THERAPIST documented in this encounter Nursing Notes Lien Medina R.N., C.M.S.R.N. - 01/31/2021 2:17 PM CST Mr. Barton discharged home self care with his and daughter. He used wheelchair escort when leaving the unit. ATRIC OCCUPATIONAL THERAPIST Lien Medina R.N., ScottieS.R.N. - 01/31/2021 2:15 [...] discharge needs identified Outcome: Adequate for Discharge ATRIC OCCUPATIONAL THERAPIST documented in this encounter OR Notes Op Note - Lenny Gaspar M.D. 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 ? Lenny Gaspar, M.D. ATRIC OCCUPATIONAL THERAPIST documented in this encounter Miscellaneous Notes Hospital Course - Billie Wilkinson M.D., M.B.A. - 01/30/2021 11:11 AM PEDIATRIC OCCUPATIONAL THERAPIST PROCEDURE: Patient underwent RARP, lymph node dissection [...] gross deficits DISCHARGE LABS: H.7 Cr: 1.55 ATRIC OCCUPATIONAL THERAPIST documented in this encounter Plan of Treatment Scheduled Orders Name Type Priority Associated Diagnoses Order S chedule URO Urethral cath Procedure Routine Primary Malignant Expec humble: removal & voiding Neoplasm Of Prostate , Expires: trial (UCO/VT) ([facility]) 04/30/2022 documented as of this encounter Procedures Procedure Name Priority Date/Time Associated Comments Diagnosis CBC WITHOUT Routine 01/31/2021 12:36 Results for this DIFFERENTIAL, B AM PEDIATRIC OCCUPATIONAL THERAPIST procedure ar e in the results section. BASIC METABOLIC PANEL, Routine 01/31/2021 12:36 R esults for this S/P AM PEDIATRIC OCCUPATIONAL THERAPIST procedure are i n the results section. ADULT OXYGEN THERAPY Routine 01/30/2021 9:38 PM PEDIATRIC OCCUPATIONAL THERAPIST ADULT OXYGEN THERAPY Routine 01/30/2021 7:34 PM PEDIATRIC OCCUPATIONAL THERAPIST ADULT OXYGEN THERAPY Routine 01/30/2021 7:34 PM PEDIATRIC OCCUPATIONAL THERAPIST SURGICAL PATHOLOGY, Routine 01/30/2021 6:25 PM Primary Maligna nt Results for this [facility] LAB PEDIATRIC OCCUPATIONAL THERAPIST Neoplasm Of procedure are i n Prostate (HCC) the results section. ROBOTIC-ASSISTED 01/30/2021 12:48 Primary Malignant DISSECTION LYMPH NODE PM PEDIATRIC OCCUPATIONAL THERAPIST Neoplasm Of - PELVIC Prostate (HCC) ROBOTIC-ASSISTED 01/30/2021 12:48 Primary Malignant RADICAL PROSTATECTOMY PM PEDIATRIC OCCUPATIONAL THERAPIST Neoplasm Of Prostate (HCC) documented in this encounter Results (ABNORMAL) CBC without Differential (01/31/2021 12:36 AM PEDIATRIC OCCUPATIONAL THERAPIST) Patholo gist Method Time Signature Hemoglobin 13.7 13.2 - 01/31/2021 DTL 16.6 g/dL 1:22 AM PEDIATRIC OCCUPATIONAL THERAPIST Hematocrit 40.6 38.3 - 01/31/2021 DTL 48.6 % 1:22 AM PEDIATRIC OCCUPATIONAL THERAPIST Erythrocytes 4.43 4.35 - 01/31/2021 DTL 5.65 1:22 AM PEDIATRIC OCCUPATIONAL THERAPIST x10(12)/L MCV 91.6 78.2 - 01/31/2021 DTL 97.9 fL 1:22 AM PEDIATRIC OCCUPATIONAL THERAPIST RBC Distrib Width 12.4 11.8 - 01/31/2021 DTL 14.5 % 1:22 AM PEDIATRIC OCCUPATIONAL THERAPIST Platelet Count 181 135 - 317 01/31/2021 DTL x10(9)/L 1:22 AM PEDIATRIC OCCUPATIONAL THERAPIST Leukocytes 14.8 (H) 3.4 - 9.6 01/31/2021 DTL x10(9)/L 1:22 AM PEDIATRIC OCCUPATIONAL THERAPIST Specimen Anatomical Collection Method Collection Time Receive d Time (Source) Location / / Volume Laterality Blood (Blood, 01/31/2021 12:36 01/31/2021 1:16 Venous) AM PEDIATRIC OCCUPATIONAL THERAPIST AM PEDIATRIC OCCUPATIONAL THERAPIST Billie Wilkinson M.D., M.B.A. LAB BLOOD ADD-ON Performing Organization Address City/State/ZIP Code Phon e Number [facility] - [address] [place], [place] [address] [facility] [place] [address] [facility] [address] (ABNORMAL) Basic Metabolic Panel (01/31/2021 12:36 AM PEDIATRIC OCCUPATIONAL THERAPIST) Analysis Performed At Patho logist Time Signature Potassium, S 3.2 (L) 3.6 - 5.2 01/31/2021 DTL mmol/L 1:39 AM PEDIATRIC OCCUPATIONAL THERAPIST Sodium, S 144 135 - 145 01/31/2021 DTL mmol/L 1:39 AM PEDIATRIC OCCUPATIONAL THERAPIST Chloride, S 102 98 - 107 01/31/2021 DTL mmol/L 1:39 AM PEDIATRIC OCCUPATIONAL THERAPIST Bicarbonate, S 25 22 - 29 01/31/2021 DTL mmol/L 1:39 AM PEDIATRIC OCCUPATIONAL THERAPIST Anion Gap 17 (H) 7 - 15 01/31/2021 DTL 1:39 AM PEDIATRIC OCCUPATIONAL THERAPIST BUN (Blood Urea 28 (H) 8 - 24 01/31/2021 DTL Nitrogen), S mg/dL 1:39 AM PEDIATRIC OCCUPATIONAL THERAPIST Creatinine 1.55 (H) 0.74 - 01/31/2021 DTL 1.35 mg/dL 1:39 AM PEDIATRIC OCCUPATIONAL THERAPIST eGFR-Non 44 (L) >=60 01/31/2021 DTL Black/ mL/min/BSA 1:39 AM PEDIATRIC OCCUPATIONAL THERAPIST Slovenian Comment: ----ADDITIONAL INFORMATION---- Estimated GFR calculated using the 2009 CKD_EPI creatinine equation. eGFR-Black/ 51 (L) >=60 mL/min/BSA 2020 1:39 AM PEDIATRIC OCCUPATIONAL THERAPIST DTL Comment: ----ADDITIONAL INFORMATION---- Estimated GFR calculated using the 2009 CKD_EPI creatinine equation. Calcium, Total, S 8.6 (L) 8.8 - 10.2 mg/dL 01/31/2021 1:39 AM PEDIATRIC OCCUPATIONAL THERAPIST DTL Glucose, S 206 (H) 70 - 140 mg/dL 01/31/2021 1:39 AM PEDIATRIC OCCUPATIONAL THERAPIST D TL Specimen Anatomical Collection Method Collection Time Receive d Time (Source) Location / / Volume Laterality Blood (Blood, 01/31/2021 12:36 01/31/2021 1:25 Venous) AM PEDIATRIC OCCUPATIONAL THERAPIST AM PEDIATRIC OCCUPATIONAL THERAPIST Billie Wilkinson M.D., M.B.A. LAB BLOOD ADD-ON Performing Organization Address City/State/ZIP Code Phon e Number [facility] - [address] [place], [place] [address] [place] [address] [facility] [address] Surgical Pathology, Frozen Lab (01/30/2021 6:25 PM PEDIATRIC OCCUPATIONAL THERAPIST) Component Value Ref Test Analysis Performed Pathologis t Range Method Time At Signature 02/01/2021 METH 3:30 PM PEDIATRIC OCCUPATIONAL THERAPIST Participated in Stacey Erwin, 02/01/2021 Kaleb -Pathology 3:30 PM Interpretation Fellow PEDIATRIC OCCUPATIONAL THERAPIST Report Annelise Jeff M.D., Ph.D. [phone] 02/02/20 21 METH electronically 3:30 PM signed by PEDIATRIC OCCUPATIONAL THERAPIST I verify that I have examined all relevant slides/materials for the specimen(s) and rendered or confirmed the diagnosis. Gross Description A. ??Received fresh and placed in formalin labele d 02/01/2021 METH bilateral 3:30 PM pelvic lymph nodes is a 3.6 x 3.5 x 1.6 cm aggregate of PEDIATRIC OCCUPATIONAL THERAPIST adipose and lymphatic tissue. ??Multiple (6) potential [...] the left mid to inferior posterior prostate. ??Payloader Operator tissue submitted for permanent sections only. ??Grossed by MIC. Block Summary A Bilateral pelvic lymph nodes 02/01 METH A1 Bilateral pelvic lymph nodes 1of2(A1) 3:30 PM A2 Bilateral pelvic lymph nodes 2of2(A1) PEDIATRIC OCCUPATIONAL THERAPIST A3 Bilateral pelvic lymph nodes 1of2(A2) A4 [...] A. ??Lymph nodes, bilateral pelvic, dissection: ??Multiple PEDIATRIC OCCUPATIONAL THERAPIST (6) lymph nodes are negative for metastatic [...] Seen in consultation with: Wilner Ren M.D. [phone] SYNOPTIC REPORT: ??Prostate Procedure: ??Radical prostatectomy Prostate Size: 108 gram, 6.2 (S-I) x 6.4 (A-P) x 6.6 (R-L) cm Histologic Type: ??Acinar adenocarcinoma Histologic Grade ?? Grade Group and Miami Score ?Grade Group 3 ([place] Score 4+5=9) ?Minor Tertiary Pattern 5 (less than 5%): ??Not applicable ?Percentage of Pattern 4 in Miami score 7: ??Not applicable ?? Intraductal Carcinoma [...] Volume Laterality Tissue (Prostate) 01/30/2021 7:16 PM PEDIATRIC OCCUPATIONAL THERAPIST Tissue (Lymph 01/30/2021 6:25 PM Node) PEDIATRIC OCCUPATIONAL THERAPIST Narrative This result has an attachment that is no t available. Lenny Gaspar M.D. LAB SURG PATH ORDERABLES Performing Organization Address City/State/ZIP Code Phon e Number [facility] - [address] [place], [place] [address] [facility] [place] [address] [facility] [address] documented [...] 8:21 PM 1,000 mg 400 mL/hr mg PEDIATRIC OCCUPATIONAL THERAPIST 1,000 mg, intravenous, at 400 mL/hr, Administer [...] 1,000 mg (TYLENOL) Given 01/31/2021 1:41 PM PEDIATRIC OCCUPATIONAL THERAPIST 1,000 mg 1,000 mg, oral, Every 6 hours, First dose on Jennifer 01/31/21 at 0200 Given 01/31/2021 7:36 AM PEDIATRIC OCCUPATIONAL THERAPIST 1,000 mg Given 01/31/2021 2:07 AM PEDIATRIC OCCUPATIONAL THERAPIST 1,000 mg acetaminophen tablet 1,000 mg (TYLENOL) Given 01/30/2021 1:04 PM PEDIATRIC OCCUPATIONAL THERAPIST 1,000 mg 1,000 mg, oral, Once, On Thu01/30/21 at 1300, For 1 dose, Pre-Op, PreOp give in preprocedural area. amLODIPine tablet 10 mg (NORVASC) Given 01/31/2021 8:54 AM PEDIATRIC OCCUPATIONAL THERAPIST 10 mg 10 mg, oral, Daily, First dose on Jennifer 01/31/21 at 0900 bacitracin zinc 500 unit/gram ointment Given 01/31/2021 8:54 AM PEDIATRIC OCCUPATIONAL THERAPIST 1 packet packet 1 packet 1 packet (1 application), topical, 3 times daily, First dose on Thu01/30/21 at 2145, Apply to tip of penis. Given 01/30/2021 10:50 PM PEDIATRIC OCCUPATIONAL THERAPIST 1 packet bacitracin zinc 500 unit/gram ointment Given 01/30/2021 7:03 PM PEDIATRIC OCCUPATIONAL THERAPIST 1 packet Other packet As needed, Starting on Thu01/30/21 at 1903, Intra-Op belladonna alkaloids-opium Given 01/30/2021 7:10 PM PEDIATRIC OCCUPATIONAL THERAPIST 1 suppos itory Rectum 16.2-60 mg suppository (B&O SUPPRETTS) As needed, Starting on Thu01/30/21 at 1910, Intra-Op bupivacaine HCl 0.25 % (2.5 Given 01/30/2021 7:03 PM PEDIATRIC OCCUPATIONAL THERAPIST 30 mL Abdominal Tissue mg/mL) injection (MARCAINE) As needed, Starting on Thu01/30/21 at 1903, Intra-Op caffeine-sodium benzoate injection 250 m g Given 01/30/2021 8:19 PM PEDIATRIC OCCUPATIONAL THERAPIST 250 mg 250 mg, intravenous, Once, On Thu01/30/21 at 2015, For 1 dose, PACU (only) ceFAZolin in dextrose (iso-os) IVPB 2 New Bag 01/31/2021 7:36 AM PEDIATRIC OCCUPATIONAL THERAPIST 2 g 200 mL/hr g (ANCEF) 2 g, intravenous, at 200 mL/hr, Administer over 30 Minutes, Every 8 hours, First dose on Jennifer 01/31/21 at 0000, For 2 doses, Start within 8 hours of last IV dose., Drug Monitoring Program: Pharmacist to adjust medication dosing based on indication and drug clearance factors., Indications: Prophylaxis, surgical New Bag 01/31/2021 12:11 AM PEDIATRIC OCCUPATIONAL THERAPIST 2 g 200 mL/hr celecoxib capsule 200 mg (CeleBREX) Given 01/30/2021 1:04 PM PEDIATRIC OCCUPATIONAL THERAPIST 200 mg 200 mg, oral, Once, On [...] rd. heparin (porcine) Given 01/31/2021 6:16 AM PEDIATRIC OCCUPATIONAL THERAPIST 5,000 Units Right Upper Arm injection 5,000 Units (Back) 5,000 Units, subcutaneous, Every 8 hours scheduled, First dose on Thu01/30/21 at 2200 Given 01/30/2021 10:49 PM PEDIATRIC OCCUPATIONAL THERAPIST 5,000 Units Righ t Upper Arm (Back) lactated ringers New Bag 01/31/2021 6:15 AM PEDIATRIC OCCUPATIONAL THERAPIST 125 mL/hr 125 mL/hr 125 mL/hr, intravenous, Continuous, Starting on Thu01/30/21 at 2145, Continue IV fluids from operating room at 125 ml/hour New Bag 01/30/2021 9:40 PM PEDIATRIC OCCUPATIONAL THERAPIST 125 mL/hr 125 mL/hr lactated ringers Continued from OR 01/30/2021 7:37 PM PEDIATRIC OCCUPATIONAL THERAPIST 20 mL/hr 20 mL/hr 20 mL/hr, intravenous, Continuous, Starting on Thu01/30/21 at 1845, PACU & Post-Op metoprolol tablet 50 mg (LOPRESSOR) Given 01/31/2021 8:54 AM PEDIATRIC OCCUPATIONAL THERAPIST 50 mg 50 mg, oral, 2 times daily, First dose on Thu01/30/21 at 2145 Given 01/30/2021 10:49 PM PEDIATRIC OCCUPATIONAL THERAPIST 50 mg NaCl 0.9% infusion 10-250 mL/hr, [...] mg (DITROPAN- XL) Given 01/30/2021 1:04 PM PEDIATRIC OCCUPATIONAL THERAPIST 10 mg 10 mg, oral, Once, On Thu01/30/21 at 1300, For 1 dose, Pre-Op, PreOp give in preprocedural area. Swallow whole. Do NOT crush, chew, or split tablet. oxyCODONE 12 hr tablet 10 mg (OxyCONTIN) Given 01/30/2021 1:04 PM PEDIATRIC OCCUPATIONAL THERAPIST 10 mg 10 mg, oral, Once, On Thu01/30/21 at 1300, For 1 dose, Pre-Op, PreOp give in preprocedural area. Swallow whole. Do NOT crush, chew, or split tablet. potassium chloride ER tablet 40 mEq Given 01/31/2021 7:18 AM PEDIATRIC OCCUPATIONAL THERAPIST 40 mEq (KLORCON/K-TAB) 40 mEq, oral, Once, On Thu01/31/21 at 0645, For 1 dose, For K 3-3.4 mEq/L - give total of 40 mEq Swallow whole. Do NOT crush, chew, or split tablet., Monitor the following for replacement: Potassium, Replace Potassium per: Standard Schedule sennosides-docusate sodium 8.6-50 mg per Given 01/31/2021 8:54 A M PEDIATRIC OCCUPATIONAL THERAPIST 1 tablet tablet 1 tablet (SENOKOT-S) 1 tablet, oral, 2 times daily, First dose on Thu01/30/21 at 2145, Do not give if patient has diarrhea. Given 01/30/2021 10:49 PM PEDIATRIC OCCUPATIONAL THERAPIST 1 tablet sodium chloride 0.9 % injection [...] injection 3 mL Given 01/31/2021 8:54 AM PEDIATRIC OCCUPATIONAL THERAPIST 3 mL 3 mL, intravenous, Every 12 hours scheduled, First dose on Thu01/31/21 at 0900, Peripheral Intravenous Catheter and Rapid Infusion Catheter: When no infusion to maintain patency. triamterene-hydroCHLOROthiazide 37.5-25 mg Given 01/31 8:54 AM PEDIATRIC OCCUPATIONAL THERAPIST 1 tablet per tablet 1 tablet (MAXZIDE-25) 1 tablet, oral, Daily, First dose on Thu01/31/21 at 0900 trospium tablet 20 mg (SANCTURA) Given 01/31/2021 6:16 AM PEDIATRIC OCCUPATIONAL THERAPIST 20 mg 20 mg, oral, 2 times daily before breakfast and dinner, First dose on Thu01/31/21 at 0700, trospium was interchanged for trospium XR, Restriction Criteria (Pharmacy will review and approve if criteria met): Use in patients 65 years of age or older documented in this encounter Active and Recently Administered Medications Times are shown in PEDIATRIC OCCUPATIONAL THERAPIST. Scheduled Medication Order 01/29/2021 01/30/2021 01/31/2021 acetaminophen tablet 1,000 mg (TYLENOL) 0207 (Given - Provider: Cristina Horner R.N.)0736 (Given - Provider: Funmi Sarkar R.N.)1341 (Given - Provider: Lien Medina R.N., C.M.S.R.N.) 1,000 mg, oral, Every 6 hours, [...] (COMPLETED) 2019 (Given - Provider: Ai Petit R.N.) 250 mg, intravenous, Once, On Thu01/30/21 at [...] IV dose., Drug Monitoring Program: Pharmacist to a djust medication dosing based on indicat ion and drug clearance factors., Indications: Prophylaxis, surgical ceFAZolin injection 2 g (ANCEF) (COMPLETED) 1403 (Given - Provider: Damien Gill APRN, BEAUTY SCHOOL INSTRUCTOR)1653 (Given - Provider: Gurinder Tate APRN, BEAUTY SCHOOL INSTRUCTOR) 2 g, intravenous, at 20 mL/hr, Administe r over 30 Minutes, Once, On Thu01/30/21 at 1300, For 1 dose, Intra-Op, If needed, reconstitute vial per package insert instructions. See IVAG for administration g uidelines. , Drug Monitoring Program: armacist to adjust medication dosing based on indication and drug clearance factors., Indications: Prophylaxis, surgical celecoxib capsule 200 mg (CeleBREX) (COMPLETED) 1304 (Given - Provider: Lisa Tran R.N.) 200 mg, oral, Once, On Thu01/30/21 at 1300, For 1 dose, Pre-Op heparin (porcine) injection 5,000 Units 2249 (Given - Provider: Rubia Hagan RAlvarezN.) 0616 (Given - Provider: Cristina Horner R.N.)1400 [...] chloride ER tablet 40 mEq (KLORCON/K-TAB) (COMPLETED) 07 (Given - Provider: Lachelle Taylor R.N.) 40 [...] ued from OR - Provider: Ai Petit RAlvarezN. - Comment: 400 in bag) 20 mL/hr, [...] (Hazardous/Low Fluid Volume), Starting on Thu01/30/21 at 2139, Infuse at [...] na usea, vomiting, Starting on Thu01/30/21 at 2138, For 48 hours, Reassess for nausea or [...] Starting on Thu01/30/21 at 213, Prior to blood sampling, post blood transfusion [...] 2139 documented in this encounter Care Teams Aircraft Engine Mechanic Supervisor Relationship Specialty Start Date End Date Elsewhere, Pcp PCP - General Family Medicine 01/30/21 documented as of this encounter
--- OUTSIDE RECORDS SUMMARY | 2022-01-15 09:51 | XMS_ITS | Encounter Summary ---
:1950 Author Organization [facility] Address [address] [place] [address] Care Team Providers Name Role Phone Unavailable Primary Care Provider Unavailable Reason for Visit Reason Comments Triage wants Urology appointment Encounter Details Date Type Department Care Team Description 07/03/2020 Clinical Communication Department of John Tolbert ([facility] General Surgery in [facility] A, R.N . Urology [address] appointment) [address] [place] [phone] Social History Tobacco Use Types Packs/Day Years [...] How often do you attend orthodoxy or christianity 1 to 4 times per [...] was recently seen by a Urologist in [place] and he is recommending a Prostate Biospy. PSA is elevated and fran noted per records she was reading. Intervention Advised that he would need to see a provider to establish care prior to scheduling any procedures. No outside records available so asked that they bring in the records they have received for the consult appointment. Amasa provider will make determination on next steps [...] The following individuals participated in today???s interaction: Focuser used: no Additional concerns addressed: none documented in this encounter Plan of Treatment Not on filedocumented as of this encounter Visit Diagnoses Not on filedocumented in this encounter
--- OUTSIDE RECORDS SUMMARY | 2022-01-15 09:51 | XMS_ITS | Encounter Summary ---
:1950 Author Organization [facility] Address [address] [place] [address] Care Team Providers Name Role Phone Elsewhere, Pcp Primary Care Provider Unavailable Encounter Details Date Type Department Care Team Description 01/27/2021 Lab Department of Lenny Fountain M.D. Primary Malignant Medicine, [facility] [address] [facility] Neoplasm Of Prostate Building, in [place], [place] ([facility] ) [place] [address] [place] [address] [place] [address] [facility] [phone] Social History Tobacco Use Types Packs/Day Years [...] How often do you attend islam or spiritism 1 to 4 times per [...] highest level of school Associate degree: nilsa luizalvaro, 09/06/2020 you have completed or the highest [...] Malignan t Results for this RNA, V HUMAN RESOURCE ANALYST Neoplasm Of Prostate procedu re are in (HCC) the results section. documented in this encounter Results SARS Coronavirus-2 RNA, V Asymptomatic (01/27/2021 8:56 AM HUMAN RESOURCE ANALYST) [facility] Method Time Signature SARS-CoV-2 Swab, 01/28/2021 [facility] Specimen Nasopharynx 3:51 PM HUMAN RESOURCE ANALYST Source SARS CoV-2 Undetected Undetected 01/28/2021 [facility] RNA, TMA 3:51 PM HUMAN RESOURCE ANALYST Comment: SARS-CoV-2 RNA absent. This result does not rule out COVID-19 in the patient, as the sensitivity of the test depends o n the timing of the specimen collection and the quality of the specim en. Result should be correlated with patient's history and clinical presentat ion. ----ADDITIONAL INFORMATION---- This molecular amplification test was pe rformed using the Aptima SARS-CoV-2 assay ([employer] on the [employer] tem under emergency use authorization (EUA) by the U.S. Food and Drug Administ ration. Fact sheets for this EUA assay can be fo und at the following links: For Healthcare Providers: https://www.LocaMap a.gov/media/255878/download For Patients: https://www.fda.gov/media/ 331721/download Specimen Anatomical Collection Method Collection Time Receive d Time (Source) Location / / Volume Laterality Varies 01/27/2021 8:56 AM 4:45 (Nasopharynx) HUMAN RESOURCE ANALYST PM HUMAN RESOURCE ANALYST Lenny Gaspar M.D. LAB MICROBIOLOGY - GENERAL O RDERABLES Performing Organization Address City/State/ZIP Code Phon e Number [facility]- [address] [place] [address] [place] [address] System in [place] [address] [place] [address] documented in this encounter Visit Diagnoses Diagnosis Primary Malignant Neoplasm Of Prostate ( HCC) documented in this encounter Additional Health Concerns Infection Onset Date Last Indicated Resolved Time COVID19 Pending 01/26/2021 01/27/2021 01/28/2021 3:52 PM HUMAN RESOURCE ANALYST documented as of this encounter Care Teams Medicare Insurance Specialist Relationship Specialty Start Date End Date Elsewhere, Pcp PCP - General Family Medicine 01/21/21 01/29/21 documented as of this encounter
--- OUTSIDE RECORDS SUMMARY | 2022-01-15 09:51 | XMS_ITS | Encounter Summary ---
:1950 Author Organization [facility] Address [address] [place] [address] Care Team Providers Name Role Phone Unavailable Primary Care Provider Unavailable Reason for Visit Reason Comments COVID Inquiry Encounter Details Date Type Department Care Team Description 08/14/2020 Clinical Communication Department of Urology Oseas Oswald COVID Inquiry in Fran Sung M.D. [address] [place] [phone] Social History Tobacco Use Types Packs/Day Years [...] How often do you attend yazidi or alevism 1 to 4 times per [...] or slept in a fpc (including now)? Sex Assigned at Date Recorded [...] appointment being requested?: Less than 14 days [place] In the past 14 days are any [...] sending patient for testing in [facility] or [facility], route encounter to the correct testing pool. documented in this encounter Plan of Treatment Not on filedocumented as of this encounter Visit Diagnoses Not on filedocumented in this encounter
--- OUTSIDE RECORDS SUMMARY | 2022-01-15 09:51 | XMS_ITS | Encounter Summary ---
:1950 Author Organization [facility] Address [address] [place] [address] Care Team Providers Name Role Phone Unavailable Primary Care Provider Unavailable Reason for Visit Outpatient (Routine) - Closed Specialty Diagnoses / Procedures Referred By Contact Refer red To Contact Urology Diagnoses Primary Malignant Neoplasm Of Prostate (HCC) Oseas Owsald M.D. [place] [address] [phone] Referral ID Status Reason Start Date Expiration Date Visits Requ ested Visits Authorized [id number] Closed 10/18/2020 10/18/2021 1 1 Encounter Details Date Type Department Care Team Description 11/28/2020 Comprehensive Visit Department of Lenny Gaspar Prima ry Malignant Neoplasm Of Prostate (HCC) (Primary Dx); Urology in M.D. Dysfunction Erectile; [place], [address] [place] [address] Hypertension Essential Primary [place], [place] [address] [place] [phone] [place], [place] [phone] (Work) [phone] Social History Tobacco Use Types Packs/Day Years [...] How often do you attend adventism or hoahaoism 1 to 4 times per year 06/27/2021 [...] 10:30 AM CDT SUBJECTIVE REQUESTING PROVIDER Oseas Oswald M.D. REASON FOR CONSULT Adenocarcinoma of the [...] were benign. The left prostate samples demonstrated Omaha 3 + 3 adenocarcinoma in 1/6 cores [...] Date ??? Hypertension NOS ??? Polyp Colon Omaha 3 + 4, clinical T2a adenocarcinoma the [...] Collected: 08/17/20 10:57 ASSESSMENT / PLAN #1 Omaha 3 + 4, clinical clinical T2a adenocarcinoma the prostate with prebiopsy PSA 5.3 #2 Dysfunction Erectile #3 Hypertension Essential Primary It was my pleasure to meet Mr. Barton in conjunction with Dr. Gaspar. We discussed his diagnosis and prognosis in detail. I reiterated the Omaha scoring system. We reviewed his electronic medical [...] specimen. 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 >60 minutes spent during consultation for uays-cn-dsij counseling as well as and review of records and imaging documented in this encounter Plan of Treatment Not on filedocumented as of this encounter Visit Diagnoses Diagnosis Primary Malignant Neoplasm Of Prostate ( HCC) - Primary Dysfunction Erectile Hypertension Essential Primary documented in this encounter
--- OUTSIDE RECORDS SUMMARY | 2022-01-15 09:51 | XMS_ITS | Encounter Summary ---
:1950 Author Organization [facility] Address [address] [place] [address] Care Team Providers Name Role Phone Unavailable Primary Care Provider Unavailable Reason for Referral Outpatient (Routine) - Closed Specialty Diagnoses / Procedures Referred By Contact Refer red To Contact Urology Oseas Oswald M.D. [facility] [address] [place] [address] Referral ID Status Reason Start Date Expiration Date Visits Requ ested Visits Authorized [id number] Closed 09/06/2020 09/06/2021 1 1 Reason for Visit Reason Comments Results Outpatient (Routine) - Closed Specialty Diagnoses / Procedures Referred By Contact Refer callie To Contact Urology Oseas Oswald M.D. [facility] [address] [place] [phone] Referral ID Status Reason Start Date Expiration Date Visits Requ ested Visits Authorized [id number] Closed 08/10/2020 08/10/2021 1 1 Encounter Details Date Type Department Care Team Description 09/06/2020 Office Visit Department of Urology Oseas Oswald Pri mary Malignant [place] M[place]. Neoplasm Of Prostate [address] (HCC) (Primary Dx) [place] [phone] Social History Tobacco Use Types Packs/Day Years [...] 06/27/2021 relatives? How often do you attend roman catholic or muslim 1 to 4 times per year 06/27/2021 services? Do you belong to any clubs or organizations such No 06/27/2021 as roman catholic groups, unions, fraternal or athletic groups, [...] B. Left prostate core biopsies: ??Prostate adenocarcinoma, Kaufman grade 3 + 3 (grade group 1), [...] a web site put on by the [employer], the [facility] web site and, as well to [employer] which is a patient supported prostate cancer web site. He will return to clinic in 3-6 weeks to discuss this further. At this point he is not ready to makea treatment decision. Electronically signed by: Oseas Oswald M.D. 09/06/20 12:34 PM CDT documented in this encounter Plan of Treatment Scheduled Referrals Name Type Priority Associated Diagnoses Order S [facility] Urology office Outpatient Referral Routine Expect ed: visit (clinic) 10/15/2020 (Approximate), Expires: 09/07/2023 documented as of this encounter Visit Diagnoses Diagnosis Primary Malignant Neoplasm Of Prostate ( HCC) - Primary documented in this encounter
--- OUTSIDE RECORDS SUMMARY | 2022-01-15 09:51 | XMS_ITS | Encounter Summary ---
:1950 Author Organization [facility] Address [address] [place] [address] Care Team Providers Name Role Phone Unavailable Primary Care Provider Unavailable Reason for Referral Outpatient (Routine) - Closed Specialty Diagnoses / Procedures Referred By Contact Refer red To Contact Urology Diagnoses Primary Malignant Neoplasm Of Prostate (HCC) Oseas Oswald M.D. [facility] [address] [phone] Referral ID Status Reason Start Date Expiration Date Visits Requ ested Visits Authorized [id number] Closed 10/18/2020 10/18/2021 1 1 Reason for Visit Reason Comments Prostate Cancer Outpatient (Routine) - Closed Specialty Diagnoses / Procedures Referred By Contact Refer red To Contact Urology Oseas Oswald M.D. [facility] [address] [place] [address] Referral ID Status Reason Start Date Expiration Date Visits Requ ested Visits Authorized [id number] Closed 09/06/2020 09/06/2021 1 1 Encounter Details Date Type Department Care Team Description 10/18/2020 Office Visit Department of Urology Oseas Oswald Pri mary Malignant in [place]. Neoplasm Of Prostate [address] [facility] (HCC) (Primary Dx) [place] [phone] Social History Tobacco Use Types Packs/Day Years [...] How often do you attend catholic or druze 1 to 4 times per [...] documented in this encounter Progress Notes Oseas Owsald M.D. - 10/18/2020 10:30 AM CDT CHIEF [...] B. Left prostate core biopsies: ??Prostate adenocarcinoma, [place] grade 3 + 3 (grade group 1), less than 1 mm in greatest linear dimension involving 1 of 6 cores / core-like fragments and involving less than 5% of the submitted tissue. COMMENT : ??No basal cells are seen in the area of adenocarcinoma on cytokeratin 5/14 and p63 immunohistochemical stains supporting the diagnosis. C. Left apex prostate core biopsies: ??Prostate adenocarcinoma, [place] grade 3 + 4 (grade group 2), [...] Temp 36.6 ??C ? IMPRESSION/REPORT/PLAN Prostate adenocarcinoma, [place] 3 + 4, grade group 2, stage II B, cT2a, cN0, cM0 ?? PLAN: A referral is placed to colleagues in [place] for consideration of a robotic assisted radical retropubic prostatectomy. Patient is advised that this will include a 2nd opinion where everything will be reviewed. Electronically signed by: Oseas Oswald M.D. 10/18/20 10:49 AM CDT documented in this encounter Plan of Treatment Scheduled Referrals Name Type Priority Associated Diagnoses Order S [facility] Urology - Oncology Outpatient Referral Routine Primary Maligna nt Expected: - prostate consult Neoplasm Of Prostate 0 10/18/2020 (clinic) (HCC) (Approximate), Expires: 10/19/2023 documented as of this encounter Visit Diagnoses Diagnosis Primary Malignant Neoplasm Of Prostate ( HCC) - Primary documented in this encounter
--- OUTSIDE RECORDS SUMMARY | 2022-01-15 09:51 | XMS_ITS | Encounter Summary ---
:1950 Author Organization [facility] Address [address] [place] [address] Care Team Providers Name Role Phone Unavailable Primary Care Provider Unavailable Reason for Visit Reason Comments Biopsy Prostate Outpatient (Routine) - Closed Specialty Diagnoses / Procedures Referred By Contact Refer red To Contact Diagnoses Elevated Prostate-Specific Antigen Oseas Oswald M.D. [facility] Procedures URO Miscellaneous procedure [address] [place] [address] Referral ID Status Reason Start Date Expiration Date Visits Requ ested Visits Authorized [id number] Closed 08/10/2020 08/10/2021 1 1 Encounter Details Date Type Department Care Team Description 08/30/2020 Procedure visit Department of Urology Oseas Oswald Elevated in [place] Prostate-Specific [place] [address] [place] [address] Antigen [address] [place] [address] [place] [phone] Social History Tobacco Use Types Packs/Day Years [...] How often do you attend religious or taoism 1 to 4 times per [...] or slept in a mcfp (including now)? Sex Assigned at Date Recorded [...] ultrasound and biopsy of the prostate (CPT 39580) Ultrasound guidance for transrectal prostate biopsy (CPT 37728) Transrectal prostate biopsy (CPT 79651) Peripheral Nerve Block (CPT 84983) INDICATION: Elevated prostate specific antigen of 5.3 [...] B. Left prostate core biopsies: ??Prostate adenocarcinoma, Valencia grade 3 + 3 (grade [...] Left apex prostate core biopsies: ??Prostate adenocarcinoma, Avinger grade 3 + 4 (grade group 2), [...] Organization Address City/State/ZIP Code Phon e Number [facility]- [address] [place] [address] [place] [address] System [address] documented in this encounter Visit Diagnoses Diagnosis Elevated Prostate-Specific Antigen documented in this encounter
--- OUTSIDE RECORDS SUMMARY | 2022-01-15 09:51 | XMS_ITS | Encounter Summary ---
:1950 Author Organization [facility] Address [address] [place] [address] Care Team Providers Name Role Phone Elsewhere, Pcp Primary Care Provider Unavailable Encounter Details Date Type Department Care Team Description 01/21/2021 Hospital Encounter Department of Gaspar, Lenny H, Primluis y Malignant Laboratory Medicine M.DAlvarez Neoplasm Of Prostate in [address] ([facility]) [place], [place] [address] [address] [place], [place] [phone] [address] (Work) [phone] Social History Tobacco Use Types Packs/Day Years [...] How often do you attend confucianism or mandaeism 1 to 4 times per [...] (MAXZIDE-25) mouth daily. 37.5-25 mg per tablet aspirin [address] tablet Daily 0 1 04/03/2020 diazePAM (VALIUM) 5 mg Take 1 tablet (5 mg 6 tablet 0 04/202002/11/2021 tablet total) by mouth 3 (three) times a day as needed (bladder spasms uncontrolled with Trospium). gsnbxcyh-knsroclosx-yte You may experience 0 /04/202002/11/2021 ymyxin (NEOSPORIN) 3.5 pain at the tip of mg-400 unit-5,000 the penis while the unit/gram ointment catheter is indwelling. This may be improved by application of myvh-lbr-zwlhsgt antibiotic ointment as needed and may be [...] by mouth daily as needed for constipation. sulfamethoxazole-trimet Take 1 tablet by 6 tablet 0 202001/31/2021 hoprim (BACTRIM DS) mouth 2 (two) times a 800-160 mg per tablet day for 3 days. Begin one day prior to catheter removal traMADoL (ULTRAM) 50 mg Take 1 tablet [...] R esults for this THROMBOPLASTIN TIME AM CLERICAL ADMINISTRATIVE ASSISTANT Neoplasm Of procedur e are in (APTT), P Prostate (HCC) the results section. PROTHROMBIN TIME (PT), Routine 01/21/2021 10:08 Primary Malign ant Results for this P AM CLERICAL ADMINISTRATIVE ASSISTANT Neoplasm Of procedure are i n Prostate (HCC) the results section. CBC WITHOUT Routine 01/21/2021 10:08 Primary Malignant Result s for this DIFFERENTIAL, B AM CLERICAL ADMINISTRATIVE ASSISTANT Neoplasm Of procedure ar e in Prostate (HCC) the results section. BASIC METABOLIC PANEL, Routine 01/21/2021 10:08 Primary Malign ant Results for this S/P AM CLERICAL ADMINISTRATIVE ASSISTANT Neoplasm Of procedure are i n Prostate (HCC) the results section. documented in this encounter Results Prothrombin Time (PT) (01/21/2021 10:08 AM CLERICAL ADMINISTRATIVE ASSISTANT) athologist Signature Prothrombin 11.5 9.4 - 12.5 01/21/2021 [place] Time, P sec 10:30 AM CLERICAL ADMINISTRATIVE ASSISTANT INR 1.0 0.9 - 1.1 01/21/2021 [place] 10:30 AM CLERICAL ADMINISTRATIVE ASSISTANT Comment: ----ADDITIONAL INFORMATION---- Standard intensity warfarin therapeutic range: 2.0 to 3.0 ?? High intensity warfarin therapeutic rang e: 2.5 to 3.5 Specimen Anatomical Collection Method Collection Time Receive d Time (Source) Location / / Volume Laterality Blood (Blood, 01/21/2021 10:08 01/21/2021 Venous) AM CLERICAL ADMINISTRATIVE ASSISTANT 10:13 AM CLERICAL ADMINISTRATIVE ASSISTANT Lenny Gaspar M.D. LAB BLOOD ADD-ON Performing Organization Address City/State/ZIP Code Phon e Number [facility]- [address] [place] [address] [place] [address] System in [place] [address] CBC without Differential (01/21/2021 10:08 AM CLERICAL ADMINISTRATIVE ASSISTANT) athologist Signature Hemoglobin 15.9 13.2 - 01/21/2021 [place] 16.6 g/dL 10:20 AM CLERICAL ADMINISTRATIVE ASSISTANT Hematocrit 47.3 38.3 - 01/21/2021 [place] 48.6 % 10:20 AM CLERICAL ADMINISTRATIVE ASSISTANT Erythrocytes 5.22 4.35 - 01/21/2021 [place] 5.65 10:20 AM CLERICAL ADMINISTRATIVE ASSISTANT x10(12)/L MCV 90.6 78.2 - 01/21/2021 [place] 97.9 fL 10:20 AM CLERICAL ADMINISTRATIVE ASSISTANT RBC Distrib Width 12.2 11.8 - 01/21/2021 [place] 14.5 % 10:20 AM CLERICAL ADMINISTRATIVE ASSISTANT Platelet Count 221 135 - 317 01/21/2021 [place] x10(9)/L 10:20 AM CLERICAL ADMINISTRATIVE ASSISTANT Leukocytes 5.4 3.4 - 9.6 01/21/2021 [place] x10(9)/L 10:20 AM CLERICAL ADMINISTRATIVE ASSISTANT Specimen Anatomical Collection Method Collection Time Receive d Time (Source) Location / / Volume Laterality Blood (Blood, 01/21/2021 10:08 01/21/2021 Venous) AM CLERICAL ADMINISTRATIVE ASSISTANT 10:13 AM CLERICAL ADMINISTRATIVE ASSISTANT Authorizing Provider Result Hector Gaspar M.D. LAB BLOOD ADD-ON Performing Organization Address City/State/ZIP Code Phon e Number [facility]- [address] [place] [address] [place] [address] System in [place] [address] (ABNORMAL) Basic Metabolic Panel (01/21/2021 10:08 AM CLERICAL ADMINISTRATIVE ASSISTANT) Analysis Performed At Patho logist Time Signature Potassium, P 3.7 3.6 - 5.2 01/21/2021 [place] mmol/L 10:47 AM CLERICAL ADMINISTRATIVE ASSISTANT Sodium, P 144 135 - 145 01/21/2021 [place] mmol/L 10:47 AM CLERICAL ADMINISTRATIVE ASSISTANT Chloride, P 104 98 - 107 01/21/2021 [place] mmol/L 10:47 AM CLERICAL ADMINISTRATIVE ASSISTANT Bicarbonate, P 32 (H) 22 - 29 01/21/2021 [place] mmol/L 10:47 AM CLERICAL ADMINISTRATIVE ASSISTANT Anion Gap, P 8 7 - 15 01/21/2021 [place] 10:47 AM CLERICAL ADMINISTRATIVE ASSISTANT BUN (Blood Urea 27 (H) 8 - 24 01/21/2021 [facility] Nitrogen), P mg/dL 10:47 AM CLERICAL ADMINISTRATIVE ASSISTANT Creatinine 1.39 (H) 0.74 - 01/21/2021 [place] 1.35 mg/dL 10:47 AM CLERICAL ADMINISTRATIVE ASSISTANT eGFR-Black/Afri 59 (L) >=60 01/21/2021 [place] can [place] mL/min/BSA 10:47 AM CLERICAL ADMINISTRATIVE ASSISTANT Comment: ----ADDITIONAL INFORMATION---- Estimated GFR calculated using the 2009 CKD_EPI creatinine equation. eGFR Non-Black/ 51 (L) >=60 mL/min/BSA 01/21/2021 10:47 AM CLERICAL ADMINISTRATIVE ASSISTANT [place] Comment: ----ADDITIONAL INFORMATION---- Estimated GFR calculated using the 2009 CKD_EPI creatinine equation. Calcium, Total, P 9.5 8.8 - 10.2 mg/dL 01/21/2021 10:4 7 AM CLERICAL ADMINISTRATIVE ASSISTANT [facility] Glucose, P 117 70 - 140 mg/dL 01/21/2021 10:47 AM CLERICAL ADMINISTRATIVE ASSISTANT [place] Specimen Anatomical Collection Method Collection Time Receive d Time (Source) Location / / Volume Laterality Blood (Blood, 01/21/2021 10:08 01/21/2021 Venous) AM CLERICAL ADMINISTRATIVE ASSISTANT 10:12 AM CLERICAL ADMINISTRATIVE ASSISTANT Lenny Gaspar M.D. LAB BLOOD ADD-ON Performing Organization Address City/State/ZIP Code Phon e Number [facility]- [address] [place] [address] [place] [address] System in [place] [address] APTT (Activated Partial Thromboplastin Time) (01/21/2021 10:08 AM CLERICAL ADMINISTRATIVE ASSISTANT) P athologist Signature Activated 28 25 - 37 sec 01/21/2021 [place] Partial 10:33 AM CLERICAL ADMINISTRATIVE ASSISTANT Thrombopl Time, P Specimen Anatomical Collection Method Collection Time Receive d Time (Source) Location / / Volume Laterality Blood (Blood, 01/21/2021 10:08 01/21/2021 Venous) AM CLERICAL ADMINISTRATIVE ASSISTANT 10:13 AM CLERICAL ADMINISTRATIVE ASSISTANT Lenny Gaspar M.D. LAB BLOOD ADD-ON Performing Organization Address City/State/ZIP Code Phon e Number [facility] [address] [place] [address] [place] [address] System in [place] [address] documented in this encounter Visit Diagnoses Diagnosis Primary Malignant Neoplasm Of Prostate ( HCC) documented in this encounter Care Teams Supervisor Air Conditioning Installer Relationship Specialty Start Date End Date Elsewhere, Pcp PCP - General Family Medicine 01/21/21 01/29/21 documented as of this encounter
== END 2022-01-15 09:31 | disposition home or self-care (01) ==
LOC: LONREF 09:31
PROVIDERS: Visit Provider Family Medicine
DX: E87.6 Hypokalemia (principal)
CPT/HCPCS: 84132

== ENCOUNTER 2022-02-10 07:39 | Outpatient (RCR) | payer MEDICARE, BC, SELFPAY ==
--- NOTE | 2021-10-02 14:42 | ONC.NURNOTE ---
[facility] new medication teaching for Abiraterone reviewed possible side effects on medication handout after hours management, including fever ordering next doses from pharmacy, safe handling and disposal discussed medication schedule confirmed with teach back method, lab and follow up reviewed questions addressed AMILCAR forms signed reviewed contents of new teaching binder
--- NOTE | 2021-10-03 13:50 | ONC.NURNOTE ---
Copay of Abiraterone Cory had RX abiraterone filled through retail [facility] using a Good [facility] discount card and paid $180 for 1st months supply bid writer is submitting RX verbally to [facility] , the [facility] by using [facility] there is the option for enrollment in a copay radha- to cover any outstanding out of pocket costs message left with patient/ on VM
--- NOTE | 2021-10-09 13:03 | ONC.NURNOTE ---
Re: Abiraterone Cory initially filled at [facility] using Good [facility] card and paid $180 copay fiction and nonfiction prose writer offered to try to get copay coverage for RX patient and in agreement RX called to [facility] copay $2194.00 and no copay programs open for prostate cancer patient has the option to try to apply for the [employer] drug coverage for Zytiga or continue to use Good [facility] patient currently out of town and fiction and nonfiction prose writer will discuss next week
[2021-10-14 13:03] LABS: Chloride* 106 mmol/L (96-114); Potassium* 3.4 mmol/L (3.6-5.1); Sodium* 144 mmol/L (135-149)
[2021-10-14 13:06] LABS: Blood Urea Nitrogen* 22 mg/dL (7-30); Calcium* 8.9 mg/dL (8.4-10.6); Carbon Dioxide* 31 mmol/L (20-32); Creatinine* 1.2 mg/dL (0.5-1.5); Estimated Glomerular Filt Rate 64 ml/min; Glucose* 102 mg/dL (60-115)
--- NOTE | 2021-10-15 12:53 | ONC.NURNOTE ---
Start Abiraterone reviewed by Dr White noted K 3.4 as stable on BID KCL 20meq tabs discussed with Anahy plan; continue with weekly BMP as ordered by Dr White RTC set up and reviewed administration including starting prednisone
[2021-10-15 13:27] LABS: Basophils Percent Auto 0.7 % (0.0-3.0); Eosinophils Percent Auto 6.3 % (0.0-7.0); Hemoglobin* 12.9 gm/dL (13.5-17.5); Immature Granulocytes Abs Auto 0.02 K/uL (0.00-0.30); Mean Corpuscular HGB Conc 34 gm/dL (32-36); Mean Corpuscular Hemoglobin 31 pg (26-34); Mean Corpuscular Volume 92 fL (80-100); Monocytes Percent Auto 13.1 % (0.0-11.0); Neutrophils Percent Auto 71.4 % (42.0-72.0); Platelet Count* 241 K/uL (140-440); RDW Coefficient of Variation % 13.4 % (11.5-15.5); Red Blood Count 4.13 m/uL (4.30-5.90); White Blood Count* 4.11 K/uL (4.50-11.00)
[2021-10-15 13:35] LABS: Slide Review Reflex No
--- NOTE | 2021-10-17 10:52 | ONC.NURNOTE ---
Phone call on follow up of Abiraterone patient has not yet started it is not sure why- but states he will likely start today will follow up again next week
--- NOTE | 2021-10-17 17:24 | ONC.NURNOTE ---
Application completed and faxed in to [employer] for patient assistance coverage for Mike coello
--- NOTE | 2021-10-24 11:43 | ONC.NURNOTE ---
Potassium noted at 3.2 called to patient coordination of care call to Dr Cho who has been monitoring potassium
--- NOTE | 2021-10-24 11:54 | ONC.NURNOTE ---
[place] thru 03/01/22 [facility]-[id number] phone [phone] fax [phone]
--- NOTE | 2021-10-24 11:57 | ONC.NURNOTE ---
New start Zytiga/Abiraterone with Prednisone follow up call to patient- started on 10/17/21 K noted at 3.2- confirmed dose of 20 meq BID this new med can cause hypokalemia as well message left for Dr flores who is watching K weekly reports no other side effects or concerns with medication since starting
[2021-10-29 10:00] VITALS: BP 138/83; PULSE 60; RESP 14; TEMP 36.4; O2SAT 96
[2021-10-29] MEDS: LEUPROLIDE ACETATE 22.5 MG (SQ) SYRINGE SUBCUT (10:41)
--- NOTE | 2021-10-29 11:11 | ONC.NURNOTE ---
New start zytiga symptom review with patient/ reports no adverse effects- no questions or concerns regarding dosing with prednisone and adminsitration of both medications follow up appt in 2 weeks
--- NOTE | 2021-11-08 11:08 | ONC.NURNOTE ---
Addendum entered by Saranya Barahona RN 11/08/21 11:12: reports drinking will- water, juices, tea thinks he is taking about 5 X 16 oz drinks/day denies symptoms of cramping Original Note: phoned with follow up of low postassium reports current dose is 2 X 20 meq in the am and 1 X 20 meq in the pm (60 meq/day) states he has been on this dose for a while will need another K recheck in the next week will follow up regarding and dose adjustments for K3.[address] Cho insurance underwriter sales left message for Nola with Dr Cho
--- NOTE | 2021-11-19 08:41 | ONC.NURNOTE ---
Manager Sas left message with Dr. Cho stating pt had labs drawn yesterday and potassium level is still 3.1. Manager Sas also spoke to pt's spouse Gena and she is aware a message was left with Dr. Cho to address.
--- NOTE | 2021-11-20 15:39 | ONC.NURNOTE ---
Per Gena, pt's , Dr. Cho did increase his potassium dose to 40meq PO BID. Pt will continue weekly blood draw to monitor potassium.
--- NOTE | 2021-11-25 11:57 | ONC.NURNOTE ---
called and asked if she should be having her hubbys re his potassium with his Dr. Matias. per Aleyda GARCIA yes. enc to call us back if any problem.
--- NOTE | 2022-01-16 14:43 | ONC.NURNOTE ---
machine sign writer reviewed with patient information regarding Duanea PAP ending on 03/01/22 options discussed to continue on abiraterone at a cost of approx $160-225/month or talk with oncology about changing to Erleada- and then he needs to complete an online application by 01/30/22 on [email or web address]
--- NOTE | 2022-01-16 14:51 | ONC.NURNOTE ---
Wound/Ostomy Nurse has discussed with Cory the discontinuation of the Zytiga PAP options include taking generic abiraterone with a monthly cost of approx $160-225/mth or to discuss with medical oncology to switch to Erleada and will need to do a prelim enrollment for the Erleada PAP by registering at [email or web address] patient to think about this and has a provider appt on 01/30/22
[2022-02-03 09:39] LABS: Basophils Percent Auto 0.7 % (0.0-3.0); Eosinophils Percent Auto 5.2 % (0.0-7.0); Hematocrit 39.9 % (37.0-53.0); Hemoglobin* 13.6 gm/dL (13.5-17.5); Immature Granulocytes Pct Auto 0.2 %; Lymphocytes Percent Auto 9.4 % (20-44); Mean Corpuscular HGB Conc 34 gm/dL (32-36); Mean Corpuscular Hemoglobin 31 pg (26-34); Mean Corpuscular Volume 92 fL (80-100); Monocytes Percent Auto 13.9 % (0.0-11.0); Neutrophils Percent Auto 70.6 % (42.0-72.0); Platelet Count* 189 K/uL (140-440); RDW Coefficient of Variation % 12.1 % (11.5-15.5); Red Blood Count 4.33 m/uL (4.30-5.90); White Blood Count* 4.04 K/uL (4.50-11.00)
[2022-02-03 09:45] LABS: Slide Review Reflex No
[2022-02-03 10:12] LABS: Chloride* 108 mmol/L (96-114); Potassium* 3.7 mmol/L (3.6-5.1); Sodium* 144 mmol/L (135-149)
[2022-02-03 10:15] LABS: Carbon Dioxide* 26 mmol/L (20-32); Creatinine* 1.3 mg/dL (0.5-1.5); Estimated Glomerular Filt Rate 58 ml/min
[2022-02-03 10:16] LABS: Blood Urea Nitrogen* 29 mg/dL (7-30); Calcium* 9.6 mg/dL (8.4-10.6); Glucose* 225 mg/dL (60-115)
[2022-02-03 10:47] LABS: PSA Diagnostic* 0.07 ng/mL (0.10-4.00)
--- NOTE | 2022-02-05 09:23 | ONC.NURNOTE ---
New RX Jose faxed to [facility]
--- NOTE | 2022-02-11 13:22 | ONC.NURNOTE ---
Completed Application sent to [facility] for enrollment for Jose RICCI completed and approved- done by [facility] Copay $3400/month
== END 2022-03-31 23:59 | disposition home or self-care (01) ==
LOC: CCIC 07:39
PROVIDERS: Clinical Nurse Specialist; PCP Family Medicine; Referring Provider Family Medicine; Visit Provider Internal Medicine Medical Oncology
DX: C61 Malignant neoplasm of prostate (principal)
CPT/HCPCS: 36415; 80048; 84153; 85025; 96401; 99211; 99212; 99214; J9217

== ENCOUNTER 2022-04-22 10:48 | Outpatient (CLI) | payer MEDICARE, BC, SELFPAY | END 2022-04-22 10:49 | disposition home or self-care (01) | PROVIDERS: PCP Family Medicine; Visit Provider Family Medicine | DX: I10 Essential (primary) hypertension (principal); E11.9 Type 2 diabetes mellitus without complications; E87.6 Hypokalemia; Z79.899 Other long term (current) drug therapy | CPT/HCPCS: 84443 ==

== ENCOUNTER 2022-06-20 09:10 | Outpatient (CLI) | payer MEDICARE, BC, SELFPAY | END 2022-06-20 09:11 | disposition home or self-care (01) | LOC: NFLDREF 06-22 07:21 | PROVIDERS: PCP Family Medicine; Referring Provider Family Medicine; Visit Provider Family Medicine | DX: E87.6 Hypokalemia (principal); I10 Essential (primary) hypertension | CPT/HCPCS: 80048 ==

== ENCOUNTER 2022-08-28 13:12 | Outpatient (CLI) | payer MEDICARE, BC, SELFPAY ==
--- NOTE | 2022-08-28 13:30 | CRLHL7_ITS ---
For Patients: As a result of the Cures Act, medical imaging exams and procedure reports are released immediately into your electronic medical record. You may view this report before your referring provider. If you have questions, please contact your health care provider. DXA BONE MINERAL DENSITY STUDY, 08/28/2022 Reason for exam: Prostate cancer. Current height (inches): 68.5 Weight (lbs.): 195.0 Ethnicity: White 1. Have you had a previous hip or vertebral fracture? No. 2. Have you had any fractures during your adult life which did not result from significant trauma (e.g., auto accident)? No. 3. Did either of your parents have a hip fracture? No. 4. Do you smoke? No. 5. Have you ever taken Glucocorticoids? No. 6. Do you have rheumatoid arthritis? No. 7. Do you have secondary osteoporosis? No. 8. Do you drink 3 or more alcoholic drinks per day? No. 9. Are you being treated for osteoporosis? No. 10. Have you ever taken any of the following medications: Actonel, Evista, Fosamax, Miacalcin, Reclast, Boniva, Forteo, HRT (i.e., estrogen/hormone therapy), Protelos, Prolia, Vitamin D, Calcium, other ??? please specify. ANSWER: Yes; vitamin D, calcium. 11. Do you have any of the following medical conditions: Anorexia or bulimia, asthma or emphysema, end stage renal disease, hyperparathyroidism, any seizure disorders, cancer, inflammatory bowel diseases, hysterectomy, other ??? please specify. ANSWER: Yes; prostate cancer. 12. What was your maximum height (inches)? 69. 13. Do you perform weightbearing exercise regularly? No. 14. Do you regularly consume dairy products? Yes. 15. Do you drink caffeinated beverages? Yes. TECHNIQUE: Bone mineral density study was performed using the [employer]. FINDINGS: The results of the study expressed as bone mineral density (BMD) are as follows: Lumbar Spine L1 to L4: BMD: 0.966 g/cm2. T-score: -1.1. Z-score: -0.2. Neck Left: BMD: 0.647 g/cm2. T-score: -2.1. Z-score: -0.8. Right: BMD: 0.631 g/cm2. T-score: -2.2. Z-score: -0.9. Total Left: BMD: 0.905 g/cm2. T-score: -0.8. Z-score: -0.1. Right: BMD: 0.915 g/cm2. T-score: -0.8. Z-score: 0.0. IMPRESSION: Osteopenia. COMPARISON: Compared with scan of 08/07/2021, the bone mineral density has decreased by 4.2% at the spine and increased by 0.2% at the hip. *Comparison exams done prior to 08/2019 were performed on different unit, [facility] FRAX 10-year Fracture Risk Major Osteoporotic Fracture: 8.7% Hip Fracture: 2.9% Reported Risk Factors: [place] () Neck BMD = 0.631, BMI = 29.2 DEXTER FUENTES M.D. Diagnostic Radiologist [email or web address] Transcribed: 5:[address]/Dictated by: Dexter Fuentes MD @ 08/28/2022 1:56:00 PM (Electronically Signed)
== END 2022-08-28 13:13 | disposition home or self-care (01) ==
LOC: RAD 13:13
PROVIDERS: PCP Family Medicine; Visit Provider Internal Medicine
DX: C61 Malignant neoplasm of prostate (principal); M85.80 Other specified disorders of bone density and structure, unspecified site
CPT/HCPCS: 77080

== ENCOUNTER 2022-09-11 07:45 | Outpatient (RCR) | payer MEDICARE, BC, SELFPAY ==
--- NOTE | 2022-04-04 14:25 | ONC.NURNOTE ---
Message left for Cory to call for update on Erleada: His case has been escalated again- and enrollment is confirmed [facility] is the [facility] with [facility] that will be dispensing Erleada [facility] can see the enrollment, but are waiting for [facility] for authorization to set up shipping of Erleada Patient information: Base line lab needed to be set up this next week- at [facility] or with Dr Queen office- orders have been placed Cory will continue on Zytiga until he receives the Erleada Cory will take a 3-4 day break between stopping Zytiga and before he starts Erleada The day after stopping Zytiga he will start the prednisone taper 2.5 mg/day X 14 days- RX submitted to his pharmacy call with worsening fatigue- may need to increase the prednisone dose, will discuss with provider next appts and monthly lab appts are in place
[2022-04-10 12:15] LABS: Basophils Absolute Auto 0.04 K/uL (0.00-0.30); Basophils Percent Auto 0.7 % (0.0-3.0); Eosinophils Absolute Auto 0.25 K/uL (0.00-0.50); Eosinophils Percent Auto 4.6 % (0.0-7.0); Hematocrit 41.3 % (37.0-53.0); Hemoglobin* 13.8 gm/dL (13.5-17.5); Immature Granulocytes Abs Auto 0.02 K/uL (0.00-0.30); Immature Granulocytes Pct Auto 0.4 %; Lymphocytes Percent Auto 10.1 % (20-44); Mean Corpuscular HGB Conc 33 gm/dL (32-36); Mean Corpuscular Hemoglobin 31 pg (26-34); Mean Corpuscular Volume 94 fL (80-100); Monocytes Percent Auto 12.7 % (0.0-11.0); Neutrophils Absolute Auto 3.88 K/uL (1.7-7.0); Neutrophils Percent Auto 71.5 % (42.0-72.0); Platelet Count* 210 K/uL (140-440); RDW Coefficient of Variation % 12.4 % (11.5-15.5); Red Blood Count 4.39 m/uL (4.30-5.90); White Blood Count* 5.43 K/uL (4.50-11.00)
[2022-04-10 12:19] LABS: Slide Review Reflex No
[2022-04-10 12:27] LABS: Albumin* 4.3 g/dL (3.3-5.0); Chloride* 109 mmol/L (96-114); Potassium* 4.5 mmol/L (3.6-5.1); Sodium* 145 mmol/L (135-149)
[2022-04-10 12:30] LABS: Alanine Aminotransferase* 20 U/L (4-50); Alkaline Phosphatase* 63 U/L (40-150); Aspartate Amino Transferase* 21 U/L (12-35); Bilirubin Total* 0.4 mg/dL (0.1-1.5); Blood Urea Nitrogen* 29 mg/dL (7-30); Carbon Dioxide* 30 mmol/L (20-32); Creatinine* 1.4 mg/dL (0.5-1.5); Estimated Glomerular Filt Rate 53 ml/min; Total Protein* 7.2 g/dL (6.0-8.3)
[2022-04-10 12:31] LABS: Calcium* 9.8 mg/dL (8.4-10.6); Glucose* 81 mg/dL (60-115)
--- NOTE | 2022-04-11 09:26 | ONC.NURNOTE ---
Addendum entered by Saranya Barahona RN 04/17/22 14:22: Last dose of Zytiga was today pt understands to start his 2.5 mg prednisone tomorrow X 14 days will need a 3-4 break before starting Erleada- plan start date is 04/21 Original Note: Commercial Finance Analyst talked with patients and he has picked up prednisone and has Erleada but stated he was not suppose to start it until the Zytiga was gone which would be 04/18/22. Commercial Finance Analyst let her know labs and that we would call on 04/18 to check in.
--- NOTE | 2022-04-23 12:37 | ONC.NURNOTE ---
New start Erleada: doing well with no noted new side effects prednisone taper with no noted side effects patient states that Dr Cho want to closely monitor K- now that he is off his Zytiga discussed timing of labs and patient was informed that Dr Cho's office should draw all labs due for [facility] when he goes in for K recheck discussed with patient the barriers encountered in setting up refills with [facility]- barriers are becoming insurmountable, with concerns of treatment delays Will discuss further with follow up appt on 05/05/22
--- NOTE | 2022-04-28 10:25 | ONC.NURNOTE ---
Cory is due for lab with Dr Cho on Thursday and the [facility] on Thursday w/provider appt He will get all labs on Thursday in the [facility], including the HgA1C ordered by Dr Cho- all orders are in expanse Cory will call Dr Cho and let his office know
--- NOTE | 2022-04-29 11:25 | URNOTE ---
Request received for prior authorization of Ena [id number]. Patient carries Medicare as primary insurance, confirmed on Avail[employer]. No prior authorization is required for Ena, services are based on medical necessity and follows Medicare guidelines.
[2022-05-05 09:04] LABS: Basophils Percent Auto 0.5 % (0.0-3.0); Eosinophils Percent Auto 8.9 % (0.0-7.0); Hematocrit 41.4 % (37.0-53.0); Hemoglobin* 13.8 gm/dL (13.5-17.5); Immature Granulocytes Pct Auto 0.5 %; Lymphocytes Percent Auto 12.2 % (20-44); Mean Corpuscular HGB Conc 33 gm/dL (32-36); Mean Corpuscular Hemoglobin 31 pg (26-34); Mean Corpuscular Volume 94 fL (80-100); Monocytes Percent Auto 16.4 % (0.0-11.0); Neutrophils Percent Auto 61.5 % (42.0-72.0); Platelet Count* 192 K/uL (140-440); RDW Coefficient of Variation % 12.3 % (11.5-15.5); Red Blood Count 4.43 m/uL (4.30-5.90); White Blood Count* 3.84 K/uL (4.50-11.00)
[2022-05-05 09:06] LABS: Slide Review Reflex No
[2022-05-05 09:19] LABS: Albumin* 4.3 g/dL (3.3-5.0)
[2022-05-05 09:20] LABS: Chloride* 107 mmol/L (96-114); Potassium* 4.4 mmol/L (3.6-5.1); Sodium* 142 mmol/L (135-149)
[2022-05-05 09:22] LABS: Aspartate Amino Transferase* 24 U/L (12-35); Bilirubin Total* 0.5 mg/dL (0.1-1.5); Carbon Dioxide* 34 mmol/L (20-32); Creatinine* 1.2 mg/dL (0.5-1.5); Estimated Glomerular Filt Rate 64 ml/min; Total Protein* 7.4 g/dL (6.0-8.3)
[2022-05-05 09:23] LABS: Alanine Aminotransferase* 22 U/L (4-50); Alkaline Phosphatase* 69 U/L (40-150); Blood Urea Nitrogen* 24 mg/dL (7-30); Calcium* 9.7 mg/dL (8.4-10.6); Glucose* 128 mg/dL (60-115)
[2022-05-05 10:03] LABS: PSA Diagnostic* < 0.06 ng/mL (0.10-4.00)
--- NOTE | 2022-05-15 09:43 | ONC.NURNOTE ---
Erleada refills advertising writer received message that Erleada was delivered by [facility] last Thursday05/09/22 next refill will be automatically sent from [facility] every 30 days- they will not call patient to schedule the refill [facility]? [phone] [facility] _ [facility] pharm [phone]
--- NOTE | 2022-05-22 16:09 | ONC.NURNOTE ---
Patient's called earlier today stating that patient is on second pack of erleada and is complaining of headache, and four odor coming from skin. Shellfish Processing Machine Tender ALLI asking her to call office to discuss further. Called patient back and the following was discussed: -Spouse notes smell with skin, patient does not note this, but spouse does. Denies rash, or itching. -Headaches are intermittent. This is not normal for patient. Patient has been using tylenol with some help. Patient was instructed to check BP in the mornings, and with each headache. Will call with results.
--- NOTE | 2022-06-27 14:27 | ONC.NURNOTE ---
Reviewed with Dr. Duncan patient's 's concern of patient getting daily headaches and Dr. Duncan stated patient needed to continue to follow with primary care. He has an appointment next week
--- NOTE | 2022-07-14 09:14 | ONC.NURNOTE ---
Addendum entered by Saranya Barahona RN 07/14/22 12:59: Per Dr Romero Hold erleada for one week record BP daily see PCP for follow up of headaches and hypertension next week- Cory already has an appt next Thursday with Dr Cho review with Dr Romero next week called to Anahy ( myriam ) and she reports understanding Original Note: Anahy called with the following: Cory has been followed by Dr Cho for persistent all day headaches MRI planned today BP noted and discussed- taking multiple antihypertensives with ongoing hypertension says he did not have TOBIN's while on Zytiga and questions if the TOBIN's onset corresponds to start of Erleada in March will review these concerns with Dr Romero
--- NOTE | 2022-07-17 15:39 | ONC.NURNOTE ---
Addendum entered by Saranya Barahona RN 07/24/22 12:08: Cory reports headaches resolved 2 days after stopping Erleada, he states that he feels better over all he does not want to restart the Erleada at this time, next appt with Dr Romero has been moved up to next week, as a [facility] lab reviewed as stable, K with in normal range Patient was instructed to bring in his home BP cuff to compare to [facility] reading his cuff was running much higher when compared to readings taken at Dr Cho's office Original Note: Rad Onc called for assistance to set up PSA and testosterone lab next week in [place] orders entered for Yenny Suarez, and Q 3 mth Med Onc CBC and CMP also due and entered to be drawn at the same time RTC appt set up as VV for 08/05/22- will be due for Olimpia same day left message on voice mail to call about upcoming appts
[2022-08-04 10:00] VITALS: BP 159/90; PULSE 67; RESP 16; TEMP 36.3; O2SAT 98
--- NOTE | 2022-08-11 10:01 | ONC.NURNOTE ---
message left on voice mail to call [facility] nurse with follow up of head aches and BP since restarting Erleada at half dose
[2022-09-11 08:03] LABS: Basophils Percent Auto 0.7 % (0.0-3.0); Eosinophils Percent Auto 8.3 % (0.0-7.0); Hematocrit 44.1 % (37.0-53.0); Hemoglobin* 14.5 gm/dL (13.5-17.5); Immature Granulocytes Pct Auto 0.5 %; Mean Corpuscular HGB Conc 33 gm/dL (32-36); Mean Corpuscular Hemoglobin 31 pg (26-34); Mean Corpuscular Volume 93 fL (80-100); Monocytes Percent Auto 12.5 % (0.0-11.0); Platelet Count* 231 K/uL (140-440); RDW Coefficient of Variation % 11.8 % (11.5-15.5); Red Blood Count 4.76 m/uL (4.30-5.90); White Blood Count* 4.32 K/uL (4.50-11.00)
[2022-09-11 08:06] LABS: Slide Review Reflex No
[2022-09-11 08:20] LABS: Albumin* 4.3 g/dL (3.3-5.0); Chloride* 106 mmol/L (96-114)
[2022-09-11 08:21] LABS: Potassium* 4.7 mmol/L (3.6-5.1); Sodium* 142 mmol/L (135-149)
[2022-09-11 08:23] LABS: Alkaline Phosphatase* 70 U/L (40-150); Aspartate Amino Transferase* 23 U/L (12-35); Bilirubin Total* 0.4 mg/dL (0.1-1.5); Blood Urea Nitrogen* 28 mg/dL (7-30); Carbon Dioxide* 31 mmol/L (20-32); Creatinine* 1.3 mg/dL (0.5-1.5); Estimated Glomerular Filt Rate 58 ml/min; Total Protein* 7.4 g/dL (6.0-8.3)
[2022-09-11 08:24] LABS: Alanine Aminotransferase* 18 U/L (4-50); Calcium* 9.9 mg/dL (8.4-10.6); Glucose* 140 mg/dL (60-115)
== END 2022-10-07 23:59 | disposition home or self-care (01) ==
LOC: CCIC 07:45
PROVIDERS: Clinical Nurse Specialist; PCP Family Medicine; Referring Provider Family Medicine; Visit Provider Internal Medicine Hematology & Oncology
DX: C61 Malignant neoplasm of prostate (principal)
CPT/HCPCS: 36415; 80053; 84153; 84403; 85025; 96401; 99212; 99214; 99215; J9217

== ENCOUNTER 2022-10-28 09:05 | Outpatient (CLI) | payer MEDICARE, BC, SELFPAY | END 2022-10-28 09:06 | disposition home or self-care (01) | LOC: NFLDREF 10-30 12:50 | PROVIDERS: PCP Family Medicine; Referring Provider Family Medicine; Visit Provider Internal Medicine Hematology & Oncology | DX: C61 Malignant neoplasm of prostate (principal); I10 Essential (primary) hypertension | CPT/HCPCS: 80053; 84153 ==

== ENCOUNTER 2023-01-01 14:05 | Outpatient (CLI) | payer MEDICARE, BC, SELFPAY | END 2023-01-01 14:06 | disposition home or self-care (01) | LOC: NFLDREF 01-05 07:19 | PROVIDERS: PCP Family Medicine; Referring Provider Family Medicine; Visit Provider Family Medicine | DX: Z00.00 Encounter for general adult medical examination without abnormal findings (principal); E11.9 Type 2 diabetes mellitus without complications; E55.9 Vitamin D deficiency, unspecified; R73.03 Prediabetes; I10 Essential (primary) hypertension; Z79.899 Other long term (current) drug therapy; C61 Malignant neoplasm of prostate; Z90.79 Acquired absence of other genital organ(s) | CPT/HCPCS: 82043; 82570 ==

== ENCOUNTER 2023-02-03 09:30 | Outpatient (RCR) | payer MEDICARE, BC, SELFPAY ==
--- NOTE | 2022-12-16 15:27 | ONC.NURNOTE ---
Lab appts adjusted - Dr George needs a PSA for 01/07 appt- so patient will get all labs that day including CBC and CMP (2 weeks early on an every 3 mth schedule)
[2023-01-06 10:28] LABS: Basophils Percent Auto 0.5 % (0.0-3.0); Eosinophils Percent Auto 8.4 % (0.0-7.0); Hematocrit 42.9 % (37.0-53.0); Hemoglobin* 14.4 gm/dL (13.5-17.5); Immature Granulocytes Pct Auto 0.5 %; Lymphocytes Percent Auto 12.9 % (20-44); Mean Corpuscular HGB Conc 34 gm/dL (32-36); Mean Corpuscular Hemoglobin 31 pg (26-34); Mean Corpuscular Volume 91 fL (80-100); Monocytes Percent Auto 13.5 % (0.0-11.0); Neutrophils Percent Auto 64.2 % (42.0-72.0); Platelet Count* 201 K/uL (140-440); RDW Coefficient of Variation % 11.8 % (11.5-15.5); Red Blood Count 4.71 m/uL (4.30-5.90); White Blood Count* 3.79 K/uL (4.50-11.00)
[2023-01-06 10:29] LABS: Slide Review Reflex No
[2023-01-06 10:42] LABS: Albumin* 4.2 g/dL (3.3-5.0); Chloride* 111 mmol/L (96-114); Sodium* 143 mmol/L (135-149)
[2023-01-06 10:43] LABS: Potassium* 5.1 mmol/L (3.6-5.1)
[2023-01-06 10:44] LABS: Creatinine* 1.3 mg/dL (0.5-1.5); Estimated Glomerular Filt Rate 58 ml/min
[2023-01-06 10:45] LABS: Alanine Aminotransferase* 18 U/L (4-50); Alkaline Phosphatase* 82 U/L (40-150); Anion Gap 6 mEq/L (7-15); Aspartate Amino Transferase* 27 U/L (12-35); Bilirubin Total* 0.3 mg/dL (0.1-1.5); Blood Urea Nitrogen* 27 mg/dL (7-30); Carbon Dioxide* 26 mmol/L (20-32); Glucose* 137 mg/dL (60-115); Total Protein* 7.3 g/dL (6.0-8.3)
[2023-01-06 10:46] LABS: Calcium* 9.9 mg/dL (8.4-10.6)
[2023-01-06 10:46] LABS: Cholesterol* 200 mg/dL (90-199); HDL Cholesterol* 44 mg/dL (>=40); LDL Cholesterol Calculated 116 mg/dL (<100); Triglycerides* 200 mg/dL (40-149)
[2023-01-06 11:17] LABS: Hemoglobin A1C* 7.3 % (0-5.6)
[2023-01-06 11:18] LABS: PSA Diagnostic* < 0.06 ng/mL (0.10-4.00)
--- NOTE | 2023-01-06 13:52 | ONC.NURNOTE ---
Lab results reviewed and called to Cory message left on to call- results stable
[2023-02-03 08:22] LABS: Basophils Percent Auto 0.3 % (0.0-3.0); Eosinophils Percent Auto 7.9 % (0.0-7.0); Hematocrit 43.2 % (37.0-53.0); Hemoglobin* 14.5 gm/dL (13.5-17.5); Immature Granulocytes Pct Auto 0.3 %; Lymphocytes Percent Auto 12.2 % (20-44); Mean Corpuscular HGB Conc 34 gm/dL (32-36); Mean Corpuscular Hemoglobin 31 pg (26-34); Mean Corpuscular Volume 91 fL (80-100); Monocytes Percent Auto 12.8 % (0.0-11.0); Neutrophils Percent Auto 66.5 % (42.0-72.0); Platelet Count* 200 K/uL (140-440); RDW Coefficient of Variation % 11.9 % (11.5-15.5); Red Blood Count 4.75 m/uL (4.30-5.90); White Blood Count* 3.92 K/uL (4.50-11.00)
[2023-02-03 08:27] LABS: Slide Review Reflex No
[2023-02-03 08:42] LABS: Chloride* 108 mmol/L (96-114)
[2023-02-03 08:43] LABS: Albumin* 4.4 g/dL (3.3-5.0); Potassium* 4.6 mmol/L (3.6-5.1); Sodium* 141 mmol/L (135-149)
[2023-02-03 08:45] LABS: Creatinine* 1.2 mg/dL (0.5-1.5); Estimated Glomerular Filt Rate 64 ml/min
[2023-02-03 08:46] LABS: Alanine Aminotransferase* 15 U/L (4-50); Alkaline Phosphatase* 77 U/L (40-150); Anion Gap 6 mEq/L (7-15); Aspartate Amino Transferase* 20 U/L (12-35); Bilirubin Total* 0.3 mg/dL (0.1-1.5); Blood Urea Nitrogen* 23 mg/dL (7-30); Calcium* 9.5 mg/dL (8.4-10.6); Carbon Dioxide* 27 mmol/L (20-32); Glucose* 149 mg/dL (60-115); Total Protein* 7.2 g/dL (6.0-8.3)
[2023-02-03 09:24] LABS: PSA Diagnostic* < 0.06 ng/mL (0.10-4.00)
--- NOTE | 2023-02-06 14:17 | ONC.NURNOTE ---
Apalutamide prescription re-faxed to [facility].
--- NOTE | 2023-03-31 10:15 | ONC.NURNOTE ---
Erleada re-enrollment with [facility] PAP confirmed through 03/01/24 ( phone call to [facility] Rep Mima Fatima) - no enrollment letters have been received by either the patient or providers office [facility] has not be consistent on faxing or mailing letters patient called with updates and was instructed to call [facility] to order his next months supply patient has Erleada supply at home and has not missed any doses
== END 2023-05-03 23:59 | disposition home or self-care (01) ==
LOC: CCIC 09:30
PROVIDERS: PCP Family Medicine; Referring Provider Family Medicine; Visit Provider Internal Medicine Hematology & Oncology
DX: C61 Malignant neoplasm of prostate (principal); Z90.79 Acquired absence of other genital organ(s)
CPT/HCPCS: 36415; 80053; 80061; 83036; 84153; 85025; 96401; 99212; 99214; 99215; J9217

== ENCOUNTER 2023-07-30 09:29 | Outpatient (CLI) | payer MEDICARE, BC, SELFPAY ==
--- OUTSIDE RECORDS SUMMARY | 2023-07-30 09:32 | XMS_ITS ---
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 on 09/06/2020 Pathologic stage from 01/30/2021:Stage IIIC(pT3a, pN0, cM0, PSA: 5.3, Grade Group: 5) - Unsigned Polyp Colon Adenomatous 03/15/2012 Overview: Colonoscopy 03/2012 polyp repeat in 5 years Colonoscopy 03/2017 polyp, repeat in 5 years Current Oncology Plans No current plan information found. Past Plans Hem/Onc Therapy Plan 1 Plan Name Start Date Discontinue Date Treatment Medications Discontinue Reason Plan Provider LEUPROLIDE ACETATE EVERY 24 WEEKS 12/23/2021 12/17/2022 No medications scheduled. Unlisted Yenny Suarez P.A.-C., M.S. Leuprolide Acetate Every 12 Weeks 07/30/2021 12/23/2021 No medications scheduled. Therapy Complete [place] George M.D. Radiation Treatments * Plan Last Treated On Elapsed Days Fractions Treated Prescribed Fraction Dose Prescribed Total Dose [id number] 09/18/2021 44 7 of 7 200 cGy 1,400 cGy [id number] 09/09/2021 35 25 of 25 200 cGy 5,000 cGy Reference Point Last Treated On Elapsed Days Session Dose Total Dose [id number] 09/18/2021 44 200 cGy 6,400 cGy
--- OUTSIDE RECORDS SUMMARY | 2023-07-30 09:32 | XMS_ITS ---
Author Organization [facility] Address [address] [place] [address] Care Team Providers Care Lime Slaker Name Role Phone Unavailable Unavailable Unavailable Surgery Details Not on file Complications Check Surgery Details section. Procedure Estimated Blood Loss Check Surgery Details section. Procedure Findings Check Surgery Details section. Procedure Specimens Taken Check Surgery Details section.
--- OUTSIDE RECORDS SUMMARY | 2023-07-30 09:32 | XMS_ITS | Referral Summary ---
Author Organization [facility] Address [address] [place] [address] Care Team Providers Care Induction Furnace Operator Name Role Phone Elsewhere, Pcp Primary Care Provider Unavailabl e Source Comments Patient records contain information from all sites at [facility]. For routine questions regarding patient records, call [phone] during business hours, M-F 8:00 AM - 5:00 PM Central Time. Record requests for emergency care only can be directed to [phone] at any time.[facility] Allergies No known active allergies Medications Medication Sig Dispensed Refills Start Date End Date Status amLODIPine (NORVASC) 10 mg tablet Take 10 mg by mouth daily. 05/18/2020 Active blood sugar diagnostic (Accu-Chek Guide test strips) strips 2 times daily. 05/22/2020 Active cholecalciferol, vitamin D3, 25 mcg (1,000 Unit) tablet Daily Active lancets 2 times daily. 05/22/2020 Active lisinopriL (PRINIVIL,ZESTRIL) 40 mg tablet Take 40 mg by mouth at bedtime. 05/18/2020 Active metoprolol tartrate (LOPRESSOR) 50 mg tablet Twice A Day 05/18/2020 Active acetaminophen (TYLENOL) 500 mg tablet Take 2 tablets (1,000 mg total) by mouth every 6 (six) hours as needed for pain. 01/31/2021 Active aspirin [address] tablet Hold for one week post-surgery 01/31/2021 Active spironolactone (ALDACTONE) 25 mg tablet Take 25 mg by mouth daily. 12/14/2021 Active apalutamide (Erleada) 60 mg tablet Take 4 tablets (240 mg total) by mouth daily. 120 tablet 6 02/03/2022 Active Additional Information Patient taking differently: 120 mgoral Daily, Reported on 01/08/2023 cloNIDine (CATAPRES) 0.1 mg tablet Take 2 tablets by mouth 2 (two) times a day. 07/01/2022 Active potassium chloride (K-TAB) 20 mEq CR tablet Take 40 mEq by mouth 2 (two) times a day. 05/01/2022 Active Active Problems Problem Noted Date Diagnosed Date [...] Colonoscopy 03/2017 polyp, repeat in 5 years Immunizations Name Administration Dates Next Due HZV (ZOSTAVAX) 11/02/2013 Influenza high dose QV(65 ye ars or older) (PF) 11/11/2020,11/21/2019 PCV13 02/14/2016 PPSV23 07/21/2017 RZV (SHINGRIX) 03/07/2019,08/04/2018 Tdap 02/17/2017 influenza high dose (65 year s or older) (PF) 12/09/2018,12/29/2017,11/27/2016 Social History Tobacco Use Types Packs/Day Years Used Date Smoking Tobacco: Former Cigarettes Q uit: 01/30/1979 Smokeless Tobacco: Never Tobacco Cessation:Counseling Given: Not Answered Alcohol Use Standard Drinks/Week Comments Not Currently 0 (1 standard drink = 0.6 oz pur e alcohol) Humiliation, Afraid, Rape, and Kick questionnair e Answer Date Recorded Within the last year, have y ou been afraid of your partner or ex-partner? No 07/18/2022 Within the last year, have y ou been humiliated or emotionally abused in other ways by your partner or ex-partner? No Within the last year, have y ou been kicked, hit, slapped, or otherwise physically hurt by your partner or ex-partner? No 07/18/2022 Within the last year, have y ou been raped or forced to have any kind of sexual activity by your partner or ex-partner? No 07/18/2022 Social Connection and Isolat ion Panel [NHANES] Answer Date Recorded In a typical week, how many times do you talk on the phone with family, friends, or neighbors? Once a week 07/18/2022 How often do you get togethe r with friends or relatives? Once a week 07/18/2022 How often do you attend [facility] or [facility] services? Patient declined 07/18/2022 Do you belong to any clubs o r organizations such as gnosticist groups, unions, fraternal or athletic groups, or school groups? Yes 07/18/2022 How often do you attend meet ings of the clubs or organizations you belong to? More than 4 times per year 07/18/2022 Are you , , di vorced, , never , or living with a partner? 07/18/2022 AUDIT-C Answer Date Recorded Q1: How often do you have a drink containing alc ohol? Never 07/18/2022 Q2: How many drinks containi ng alcohol do you have on a typical day when you are drinking? 1 or 2 07/18/2022 Q3: How often do you have six or more drinks on one occasion? Never 07/18/2022 Overall Financial Resource Strain (CARDIA) Answe r Date Recorded How hard is it for you to pa y for the very basics like food, housing, medical care, and heating? Not hard at all 07/18/2022 PHQ-2 Answer Date Recorded PHQ-2 Score 0 01/21/2021 [facility] - Occupational Stress Questionnaire Answer Date Recorded Do you feel stress - tense, restless, nervous, or anxious, or unable to sleep at night because your mind is troubled all the time - these days? Not at all 07/18/2022 Exercise Vital Sign Answer Date Recorde d On average, how many days pe r week do you engage in moderate to strenuous exercise (like a brisk walk)? Patient declined On average, how many minutes do you engage in exercise at this level? Patient declined 07/18/2022 Hunger Vital Sign Answer Date Recorded Within the past 12 months, y ou worried that your food would run out before you got the money to buy more. Never true 07/19/19 23 Within the past 12 months, t he food you bought just didn't last and you didn't have money to get more. Never true 07/18/2022 PRAPARE - Transportation Answer Date Re corded In the past 12 months, has l ack of transportation kept you from medical appointments or from getting medications? No 06/30 In the past 12 months, has l ack of transportation kept you from meetings, work, or from getting things needed for daily living? No 07/18/2022 Housing Stability Vital Sign Answer Christ e Recorded In the last 12 months, was t here a time when you were not able to pay the mortgage or rent on time? No 07/18/2022 In the last 12 months, how many places have you lived? 1 07/18/2022 In the last 12 months, was t here a time when you did not have a steady place to sleep or slept in a halfway (including now)? No 07/18/2022 Nutrition Answer Date Recorded Nutrition: EVOO Fat Source No 07/18 On average, how many serving s of fruits and vegetables do you eat per day (serving size is equal to 1 cup or approximately the size of a tennis ball)? 2-3 07/18/2022 Dental Answer Date Recorded Dental: Regular Dentist Yes 09/07/19 Employment Answer Date Recorded Employment status Retired 07/18/2022 Education Answer Date Recorded What is the highest level of school you have completed or the highest degree you have received? Associate degree: occupational, technical, or vocational program 07/18/2022 Sex and Gender Information Value Date Recorded Sex Assigned at Male 06/27/2021 1:28 PM CDT Gender Identity Male 06/27/2021 1:28 PM CDT Sexual Orientation Straight 06/27/2021 1: 28 PM CDT Last Filed Vital Signs Vital Sign Reading Time Taken Comments Blood Pressure 201/88 01/13/2023 1:56 PM SWEET PICKLED FRUIT MAKER Pulse 76 01/13/2023 1:56 PM SWE[employer] P[employer]LED FRUIT MAKER Temperature 36.8 ??C (98.2 ??F) 01/13/2023 1:56 PM CS T Respiratory Rate 15 01/31/2021 12:30 PM SWEET PICKLED FRUIT MAKER Oxygen Saturation 93% 01/31/2021 12:30 PM SWEET PICKLED FRUIT MAKER Inhaled Oxygen Concentration - - Weight 92.2 kg (203 lb 4.2 oz) 01/13/2023 1:56 P M SWE[employer] P[employer]LED FRUIT MAKER Height 169 cm (5' 6.54) 01/30/2021 11:48 AM SWEET PICKLED FRUIT MAKER Body Mass Index 32.28 01/30/2021 11:48 AM SWEET PICKLED FRUIT MAKER Plan of Treatment Upcoming Encounters Date Type Department Care Team (Latest Contact Info) Description 09/21/2023 9:30 AM CDT Clinical Communication Virtual Review in [place], [place] [address] [place] [address] 09/23/2023 11:30 AM CDT Appointment Department of Radiation Oncology in [address] [phone] [place] George M.D. [address] [place] [phone] Medical Devices Implanted Type Area Substation Electrician Device Identifier Shelf Expiration Date Model / Serial / Lot Clp Hmol Plmr Lg - [id number] Implanted:Qty : 1 on 01/30/2021 by Lenny Gaspar M.D. at [facility] Hardware e.g. pins/screws/ rods [employer] [id number] 10/29/2025 [id number] / / [id number] Clp Hmol Plmr Lg - [id number] Implanted:Qty : 1 on 01/30/2021 by Lenny Gaspar M.D. at [facility] Hardware e.g. pins/screws/ rods [employer] [id number] 09/23/2025 [id number] / / [id number] Clp Hmol Plmr Lg - [id number] Implanted:Qty : 1 on 01/30/2021 by Lenny Gaspar M.D. at [facility] Hardware e.g. pins/screws/ rods [employer] [id number] 10/14/2025 [id number] / / [id number] Clp Hmol Plmr Lg - [id number] Implanted:Qty : 1 on 01/30/2021 by Lenny Gaspar M.D. at [facility] Hardware e.g. pins/screws/ rods [employer] [id number] 10/22/2025 [id number] / / [id number] Clp Hmol Plmr Md - [id number] Implanted:Qty : 1 on 01/30/2021 by Lenny Gaspar M.D. at [facility] Hardware e.g. pins/screws/ rods [employer] [id number] 05/27/2025 [id number] / / [id number] Clp Hmol Plmr Md - [id number] Implanted:Qty : 1 on 01/30/2021 by Lenny Gaspar M.D. at [facility] Hardware e.g. pins/screws/ rods [employer] [id number] 05/21/2025 [id number] / / [id number] Clp Hmol Plmr - [id number] Implanted:Qty : 1 on 01/30/2021 by Lenny Gaspar M.D. at [facility] Hardware e.g. pins/screws/ rods [employer] [id number] 09/23/2025 [id number] / / [id number] Clp Hmol Plmr - [id number] Implanted:Qty : 1 on 01/30/2021 by Lenny Gaspar M.D. at [facility] Hardware e.g. pins/screws/ rods [employer] [id number] 09/02/2025 [id number] / / [id number] Clp Mark Tori Cheng [id number] Implanted:Qty : 1 on 01/30/2021 by Lenny Gaspar M.D. at [facility] Hardware e.g. pins/screws/ rods [employer] [id number] 09/23/2025 [id number] / / [id number] Clp Mark Riveramr Md Cheng [id number] Implanted:Qty : 1 on 01/30/2021 by Lenny Gaspar M.D. at [facility] Hardware e.g. pins/screws/ rods [employer] [id number] 05/21/2025 [id number] / / [id number] Procedures Procedure Name Priority Date/Time Associated Diagnosis Comments HEMATOLOGY/ONCOLOGY - BLOOD, EXTERNAL LAB RESULTS Routine 04/10/2022 12:08 PM SWEET PICKLED FRUIT MAKER BASIC METABOLIC PANEL, S/P Routine 01/31/2021 12:36 AM SWEET PICKLED FRUIT MAKER from Last 3 Months or Most Recently Relevant to Health Maintenance Results * Hematology/Oncology - Blood, External Lab Results (04/10/2022 12:08 PM SWEET PICKLED FRUIT MAKER) EXT Hemoglobin 13.8 13.5 - 17.5 OTHER (SPECIFY IN TURBO GENERATOR OILER) EXT Leukocytes 5.43 4.50 - 11.00 OTHER (SPECIFY IN TURBO GENERATOR OILER) EXT Absolute Neutrophil Count 3.88 1.7 - 7.0 OTHER (SPEC CHRIS IN TURBO GENERATOR OILER) EXT Platelet Count 210 140 - 440 OTHER (SPECIFY IN TURBO GENERATOR OILER) EXT AST 21 12 - 35 OTHER (SPE CIFY IN TURBO GENERATOR OILER) EXT ALT 20 4 - 50 OTHER (SPE CIFY IN TURBO GENERATOR OILER) EXT Alkaline Phosphatase 63 40 - 150 OTHER (SPECIFY IN TURBO GENERATOR OILER) EXT Bilirubin, Total 0.4 0.1 - 1.5 mg/dL OTHER (SPECIFY IN TURBO GENERATOR OILER) EXT Albumin 4.3 3.3 - 5.0 g/dL OTHER (SPECIFY IN TURBO GENERATOR OILER) EXT Sodium 145 135 - 149 mmol/L OTHER (SPECIFY IN TURBO GENERATOR OILER) EXT Potassium 4.5 3.6 - 5.1 OTHER (SPECIFY IN TURBO GENERATOR OILER) EXT Calcium, Total 9.8 8.4 - 10.6 OTHER (SPECIFY IN TURBO GENERATOR OILER) EXT Creatinine 1.4 0.5 - 1.5 mg/dL OTHER (SPECIFY IN TURBO GENERATOR OILER) EXT Total Protein 7.2 6.0 - 8.3 OTHER (SPECIFY IN TURBO GENERATOR OILER) EXT Glucose, 180 Min 81 60 - 115 OTHER (SPECIFY IN TURBO GENERATOR OILER) EXT Chloride 109 96 - 114 OTHER ( SPECIFY IN TURBO GENERATOR OILER) EXT BUN (Blood Urea Nitrogen) 29 7 - 30 OTHER (SPECIF Y IN TURBO GENERATOR OILER) Blood 04/10/2022 12:0 8 PM SWEET PICKLED FRUIT MAKER Historical Provider LAB BLOOD NON ADD-ON OTHER (SPECIFY IN TURBO GENERATOR OILER) N/A * (ABNORMAL) Basic Metabolic Panel (01/31/2021 12:36 AM SWEET PICKLED FRUIT MAKER) Potassium, S 3.2(L) 3.6 - 5.2 mmol/L 01/31/2021 1:39 AM SWEET PICKLED FRUIT MAKER DTL Sodium, S 144 135 - 145 mmol/L 01/31/2021 1:39 AM SWEET PICKLED FRUIT MAKER DTL Chloride, S 102 98 - 107 mmol/L 01/31/2021 1:39 AM SWEET PICKLED FRUIT MAKER DTL Bicarbonate, S 25 22 - 29 mmol/L 01/31/2021 1:39 AM SWEET PICKLED FRUIT MAKER DTL Anion Gap 17(H) 7 - 15 01/31/2021 1:39 AM SWEET PICKLED FRUIT MAKER DTL BUN (Blood Urea Nitrogen), S 28(H) 8 - 24 mg/dL 01/31/2021 1:39 AM SWEET PICKLED FRUIT MAKER DTL Creatinine 1.55(H) 0.74 - 1.35 mg/dL 01/31/2021 1:39 AM SWEET PICKLED FRUIT MAKER DTL eGFR-Non Black/ 44(L) >=60 mL/min/BSA 01/31/2021 1:39 AM SWEET PICKLED FRUIT MAKER DTL Comment: ----ADDITIONAL INFORMATION---- Estimated GFR calculated using the 2009 CKD_EPI creatinine equation. eGFR-Black/Afri can Nigerien 51(L) >=60 mL/min/BSA 01/31/2021 1:39 AM SWEET PICKLED FRUIT MAKER DTL Comment: ----ADDITIONAL INFORMATION---- Estimated GFR calculated using the 2009 CKD_EPI creatinine equation. Calcium, Total, S 8.6(L) 8.8 - 10.2 mg/dL 01/31/2021 1:39 AM SWEET PICKLED FRUIT MAKER DTL Glucose, S 206(H) 70 - 140 mg/dL 01/31/2021 1:39 AM SWEET PICKLED FRUIT MAKER DTL Blood (Blood, Venous) 01/31/2021 12:36 AM SWEET PICKLED FRUIT MAKER 01/31/2021 1:25 AM SWEET PICKLED FRUIT MAKER Billie Wilkinson M.D., M.B.A. LAB BLOOD ADD -ON [facility] [address] [place] [address], [facility] [address] [place] [address] from Last 3 Months or Most Recently Relevant to Health Maintenance Advance Directives For more information, please contact: [phone] Documents on File Type Date Recorded Patient Brim Plater Expl anation Advance Directives 01/19/2023 8:25 AM Anahy Luis HCPOA/ADVOCATE/AGENT/ RESIDENT SERVICES SUPERVISOR/SURROG ATE * Full Code (Latest Code Status on File) Date Activated Date Inactivated Comments 01/30/2021 9:38 PM 01/31/2021 4:28 PM Question Answer Comments Full Code: Discussed Healthcare Agents on File Name Relationship Healthcare Agent Relationship Communication Anahy Oralia Spouse Health Care Agent Tricia Bronson Daughter First Alternate Health Care Agent Inocencia Luis Daughter Second Alternate Health Care Agent Care Teams Induction Furnace Operator Relationship Specialty Start Date End Date Elsewhere, Pcp PCP - General Family Medicine 01/30/21
--- OUTSIDE RECORDS SUMMARY | 2023-07-30 09:32 | XMS_ITS | Clinical Summary ---
Author Organization [facility] Address [place], [place] [address] Care Team Providers Care Concession Manager Name Role Phone Gilberto Cho MD Primary Care Provider [phone] Allergies No known active allergies Medications Medication Sig Dispensed Refills Start Date End Date Status amLODIPine (NORVASC) 10 mg tablet Take 10 mg by mouth once daily. 05/18/2020 Active aspirin (ECOTRIN) 81 mg enteric coated tablet Daily Active Accu-Chek Guide test strips strip 2 times daily. 05/22/2020 Active lisinopriL (PRINIVIL; ZESTRIL) 40 mg tablet Take 40 mg by mouth once daily. 05/18/2020 Active metoprolol tartrate (LOPRESSOR) 50 mg tablet Twice A Day 05/18/2020 Active triamterene-hydrochlor othiazide, 37.5-25 mg, (MAXZIDE-25) 37.5-25 mg tablet Take 1 Tablet by mouth once daily. 05/09/2020 Active Accu-Chek Softclix Lancets 2 times daily. 05/22/2020 Active diclofenac enteric coated (VOLTAREN) 50 mg tablet Twice A Day as needed 05/18/2020 Active cholecalciferol (VITAMIN D3) 1,000 unit tablet Daily Active Active Problems Problem Noted Date Diagnosed Date Adenomatous colon polyp 03/15/2012 Overview: Colonoscopy 03/2012 polyp repeat in 5 years Colonoscopy 03/2017 polyp, repeat in 5 years Immunizations Name Administration Dates Next Due Zoster (Zostavax-ZVL, live) 11/02/2013 Social History Tobacco Use Types Packs/Day Years Used Date Smoking Tobacco: Former Cigarettes Smokeless Tobacco: Never Tobacco Cessation:Counseling Given: Yes Alcohol Use Standard Drinks/Week Comments Not Currently 0 (1 standard drink = 0.6 oz pur e alcohol) Sex and Gender Information Value Date Recorded Sex Assigned at Not on file Gender Identity Not on file Sexual Orientation Not on file Obstetrics History Last Filed Vital Signs Vital Sign Reading Time Taken Comments Blood Pressure 144/86 07/02/2020 9:32 AM CDT Pulse 53 07/02/2020 9:32 AM CDT Temperature - - Respiratory Rate 16 07/02/2020 9:32 AM CDT Oxygen Saturation 99% 07/02/2020 9:3 2 AM CDT Inhaled Oxygen Concentration - - Weight 89.6 kg (197 lb 9.6 oz) 07/02/2020 9:32 AM CDT Pt weighed with shoes on. Height - - Body Mass Index - - Plan of Treatment Health Maintenance Due Date Last Done Comments Tdap 1960 Depression screening for age 12+ 1961 BMI (ht and wt on same day) for age 18+ 10/12/1967 Hepatitis C screening for ag e 18-79 10/12/1967 Tetanus booster 1969 Lipids for age 45-75 1994 Zoster (shingles) series for age 50+ (2 of 3) 12/28/2013 11/02/2013 Medicare Wellness for age 65+ 2014 Pneumococcal series for age 65+ (1 of 1 - PCV) 2014 Colonoscopy through age 75 03/17/202203/17, 03/17/2017, 02/17/2017, Additional history exists COVID-19 vaccine series ( - 2022- season) 2022 Influenza for age 65+ 11/01/2023 Procedures Procedure Name Priority Date/Time Associated Diagnosis Comments COLONOSCOPY 03/17/2017 11:19 AM PRINCIPAL EXAMINER from Last 3 Months or Most Recently Relevant to Health Maintenance Results * COLONOSCOPY (03/17/2017 11:19 AM PRINCIPAL EXAMINER) 03/17/2017 11:1 9 AM PRINCIPAL EXAMINER Narrative Transcriptions Latrell Keith MD - 03/18/2017 1:07 PM CST Patient Name: Cory Barton Procedure Date: 03/17/2017 Gender: Male Date of : 1950 Admit Type: Outpatient Procedure: Colonoscopy Proceduralist: Latrell Keith MD , Kimberlee Beach (Nurse) Indications/Pre-Op Diagnosis: Surveillance: Personal history ofadenomatous polyps on last colonoscopy 5 years ago, Last colonoscopy: March 2012 Medications: Fentanyl 100 micrograms IV, Midazolam 2 mgIV, The level of sedation administered wasmoderate Procedure Description: The patient had risks, benefits and alternatives explained to andgave informed consent. The patient had a stable cardiopulmonary status and judged an adequate candidate for conscious sedation. The [id number]-[id number] was passed through the anus and advanced tothe cecum, identified by appendiceal orifice and ileocecal valve. The colonoscopy was performed without difficulty. The patient toleratedthe procedure well. The quality of the bowel preparation was good. The ileocecal valve, appendiceal orifice, and rectum were photographed. Complications: No immediate complications. Estimated Blood Loss & Specimen: Estimated blood loss: none. Specimen collected - Yes and sent to Laboratory Findings: The perianal and digital rectal examinations were normal. A 3 mm polyp was found in the cecum. The polyp was sessile. The polyp was removed with a cold snare. Resection and retrieval werecomplete. A 3 mm polyp was found in the ascending colon. The polyp was sessile. The polyp was removed with a cold snare. Resection was complete, butthe polyp tissue was not retrieved. Four sessile polyps were found in the sigmoid colon. The polyps were3 mm in size. These polyps were removed with a cold snare. Resectionand retrieval were complete. Multiple small and large-mouthed diverticula were found in thesigmoid colon and descending colon. The exam was otherwise without abnormality on direct and retroflexion views. Impressions/Post-Op Diagnosis: - One 3 mm polyp in the cecum, removed with a cold snare. Resectedand retrieved. - One 3 mm polyp in the ascending colon, removed with a cold snare. Complete resection. Polyp tissue not retrieved. - Four 3 mm polyps in the sigmoid colon, removed with a cold snare. Resected and retrieved. - Diverticulosis in the sigmoid colon and in the descending colon. - The examination was otherwise normal on direct and retroflexionviews. Recommendation: - Patient has a contact number available for emergencies. The signsand symptoms of potential delayed complications were discussed with the patient. Return to normal activities tomorrow. Written discharge instructions were provided to the patient. - Resume previous diet. - Continue present medications. - Await pathology results. - Repeat colonoscopy in 5 years for surveillance. Moderate Sedation: Moderate (conscious) sedation was administered by the endoscopy nurse and supervised by the endoscopist. The following parameters were monitored: oxygen saturation, heart rate, respiratory rate, blood pressure, adequacy of pulmonary ventilation and reponse to care. [facility] and nursing notes for moderate sedation details. Total physician intraservice time was 18 minutes. Latrell Keith MD 03/17/2017 12:30:42 PM This report has been signed electronically. Note Initiated On: 03/17/2017 11:19 AM Procedure Code(s): --- Professional --- 42067, Colonoscopy, flexible; with removalof tumor(s), polyp(s), or other lesion(s) bysnare technique Diagnosis Code(s): --- Professional --- D12.0, Benign neoplasm of cecum D12.2, Benign neoplasm of ascending colon D12.5, Benign neoplasm of sigmoid colon Z86.010, Personal history of colonicpolyps K57.30, Diverticulosis of large intestine without perforation or abscess withoutbleeding CPT copyright 2016 [employer]. All rights reserved. The codes documented in this report are preliminary and upon new car salesperson reviewmay be revised to meet current compliance requirements. Scope In: 12:08:02 PM Scope Withdrawal Time 0 hours 14 minutes 9 seconds Scope Out: 12:24:50 PM Latrell Keith MD PROCEDURE ORD from Last 3 Months or Most Recently Relevant to Health Maintenance Care Teams Concession Manager Relationship Specialty Start Date End Date Gilberto Cho MD [address] [place] [address] PCP - General Family Practice 03/17/17
--- OUTSIDE RECORDS SUMMARY | 2023-07-30 09:32 | XMS_ITS | Clinical Summary ---
Author Organization [facility] Address [address] [place] [address] Care Team Providers Care Rn Women Services Name Role Phone Elsewhere, Pcp Primary Care Provider Unavailabl e Source Comments Patient records contain information from all sites at [facility]. For routine questions regarding patient records, call [phone] during business hours, M-F 8:00 AM - 5:00 PM Central Time. Record requests for emergency care only can be directed to [phone] at any time.[facility] Allergies No known active allergies Medications Medication [...] (65 year s or older) (PF) 12/09/2018,12/29/2017,11/27/2016 Family History Medical History Relation Name Comments [...] week 07/18/2022 How often do you attend chur or sikh services? Patient declined 07/18/2022 Do you belong to any clubs o r organizations such as faith groups, unions, fraternal or athletic [...] Answer Date Recorded PHQ-2 Score 0 01/21/2021 [facility] Occupat ional Health - Occupational Stress Questionnaire Answer Date Recorded [...] or slept in a longterm (including now)? No 07/18/2022 Nutrition Answer Date [...] Comments Blood Pressure 201/88 01/13/2023 1:56 PM SYSTEM DEVELOPMENT ENGINEER Pulse 76 01/13/2023 1:56 PM SYSTEM DEVELOPMENT ENGINEER Temperature 36.8 ??C (98.2 ??F) 01/13/2023 1:56 PM CS T Respiratory Rate 15 01/31/2021 12:30 PM SYSTEM DEVELOPMENT ENGINEER Oxygen Saturation 93% 01/31/2021 12:30 PM SYSTEM DEVELOPMENT ENGINEER Inhaled Oxygen Concentration - - Weight 92.2 kg (203 lb 4.2 oz) 01/13/2023 1:56 P M SYSTEM DEVELOPMENT ENGINEER Height 169 cm (5' 6.54) 01/30/2021 11:48 AM SYSTEM DEVELOPMENT ENGINEER Body Mass Index 32.28 01/30/2021 11:48 AM SYSTEM DEVELOPMENT ENGINEER Plan of Treatment Upcoming Encounters Date Type Department Care Team (Latest Contact Info) Description 09/21/2023 9:30 AM CDT Clinical Communication Virtual Review in [place], [place] [address] [place] [address] 09/23/2023 11:30 AM CDT Appointment Department of Radiation Oncology in [place] [address] [place] [id number] London George M.D. [address] [place] [address] Health Maintenance Due Date Last Done Comments Abdominal Aortic Aneurysm (AAA) Screen 1949 CT Colonography 1949 Cologuard 1950 Hepatitis C Screening 1950 Office Visit for Blood Pressure Check / Re-check 1949 Fasting Glucose for Diabetes Screening 01/31/2022 01/31/2021, 01/21/2021 Colonoscopy 03/17/2022 03/17/2017 Colorectal Cancer Surveillance 03/17/2022 COVID-19 Vaccine ( season) 2022 03/09/2022, 11/28/2021, 07/09/2021, Additional history exists Depression Screening (Annual PHQ-2) 03/02/2023 Fall Risk Screen (Annual) 03/02/2023 Creatinine Level (Kidney Function Test) 04/10/2023 04/10/2022, 11/18/2021, 01/31/2021, Additional history exists Potassium Level 04/10/2023 04/10/2022, 10/31, 01/31/2021, Additional history exists Sodium Level 04/10/2023 04/10/2022, 10/31, 01/31/2021, Additional history exists DTaP,Tdap,and Td Vaccines (2 - Td or Tdap) 02/17/2027 02/17/2017 Zoster Vaccines Completed 03/07/2019, 06/0 06/2018, 11/02/2013 Influenza Vaccine Completed 01/01/2023, , 11/11/2020, Additional history exists Pneumococcal vaccine (65+ years) Completed 01/01/2023, 07/21/2017, 02/14/2016 HPV Vaccines Aged Out No longer eligi ble based on patient's age to complete this topic Medical Devices Implanted Type Area Physician Locums Urgent Care Device Identifier Shelf Expiration Date Model / Serial / Lot [facility] Hmol Pl Lg - [id number] Implanted:Qty : 1 on 01/30/2021 by Lenny Gaspar M.D. at [facility] Hardware e.g. pins/screws/ rods [employer] Xet[employer]ave [id number] 10/29/2025 [id number] / / [id number] Clp Hmol Pl Lg - [id number] Implanted:Qty : 1 on 01/30/2021 by Lenny Gaspar M.D. at [facility] Hardware e.g. pins/screws/ rods Teleflex Xetawave [id number] 09/23/2025 [id number] / / [id number] Clp Hmol Plmr Lg - [id number] Implanted:Qty : 1 on 01/30/2021 by Lenny Gaspar M.D. at [facility] Hardware e.g. pins/screws/ rods [employer] [id number] 10/14/2025 [id number] / / [id number] Clp Hmol Plmr Lg - [id number] Implanted:Qty : 1 on 01/30/2021 by Lenny Gaspar M.D. at [facility] Hardware e.g. pins/screws/ rods [employer] [id number] 10/22/2025 [id number] / / [id number] Clp Hmol Plmr Md - [id number] Implanted:Qty : 1 on 01/30/2021 by Lenny Gaspar M.D. at [facility] Hardware e.g. pins/screws/ rods [employer] [id number] 05/27/2025 [id number] / / [id number] Clp Hmol Plmr Md - [id number] Implanted:Qty : 1 on 01/30/2021 by Lenny Gaspar M.D. at [facility] Hardware e.g. pins/screws/ rods [employer] [id number] 05/21/2025 [id number] / / [id number] Clp Hmol Plmr Md - [id number] Implanted:Qty : 1 on 01/30/2021 by Lenny Gaspar M.D. at [facility] Hardware e.g. pins/screws/ rods [employer] [id number] 09/23/2025 [id number] / / [id number] Clp Hmol Plmr Md - [id number] Implanted:Qty : 1 on 01/30/2021 by Lenny Gaspar M.D. at [facility] Hardware e.g. pins/screws/ rods [employer] [id number] 09/02/2025 [id number] / / [id number] Clp Hmol Plmr Md - [id number] Implanted:Qty : 1 on 01/30/2021 by Lenny Gaspar M.D. at [facility] Hardware e.g. pins/screws/ rods [employer] [id number] 09/23/2025 [id number] / / [id number] Clp Mark Valle Md - [id number] Implanted:Qty : 1 on 01/30/2021 by Lenny Gaspar M.D. at [facility] Hardware e.g. pins/screws/ rods [employer] [id number] 05/21/2025 [id number] / / [id number] Procedures Procedure Name Priority Date/Time Associated Diagnosis Comments HEMATOLOGY/ONCOLOGY - BLOOD, EXTERNAL LAB RESULTS Routine 04/10/2022 12:08 PM SYSTEM DEVELOPMENT ENGINEER BASIC METABOLIC PANEL, S/P Routine 01/31/2021 12:36 AM SYSTEM DEVELOPMENT ENGINEER from Last 3 Months or Most Recently Relevant to Health Maintenance Results * Hematology/Oncology - Blood, External Lab Results (04/10/2022 12:08 PM SYSTEM DEVELOPMENT ENGINEER) EXT Hemoglobin 13.8 13.5 - 17.5 OTHER (SPECIFY IN MEDICAL AND HEALTH SERVICES MANAGER) EXT Leukocytes 5.43 4.50 - 11.00 OTHER (SPECIFY IN MEDICAL AND HEALTH SERVICES MANAGER) EXT Absolute Neutrophil Count 3.88 1.7 - 7.0 OTHER (SPEC CHRIS IN MEDICAL AND HEALTH SERVICES MANAGER) EXT Platelet Count 210 140 - 440 OTHER (SPECIFY IN MEDICAL AND HEALTH SERVICES MANAGER) EXT AST 21 12 - 35 OTHER (SPE CIFY IN MEDICAL AND HEALTH SERVICES MANAGER) EXT ALT 20 4 - 50 OTHER (SPE CIFY IN MEDICAL AND HEALTH SERVICES MANAGER) EXT Alkaline Phosphatase 63 40 - 150 OTHER (SPECIFY IN MEDICAL AND HEALTH SERVICES MANAGER) EXT Bilirubin, Total 0.4 0.1 - 1.5 mg/dL OTHER (SPECIFY IN MEDICAL AND HEALTH SERVICES MANAGER) EXT Albumin 4.3 3.3 - 5.0 g/dL OTHER (SPECIFY IN MEDICAL AND HEALTH SERVICES MANAGER) EXT Sodium 145 135 - 149 mmol/L OTHER (SPECIFY IN MEDICAL AND HEALTH SERVICES MANAGER) EXT Potassium 4.5 3.6 - 5.1 OTHER (SPECIFY IN MEDICAL AND HEALTH SERVICES MANAGER) EXT Calcium, Total 9.8 8.4 - 10.6 OTHER (SPECIFY IN MEDICAL AND HEALTH SERVICES MANAGER) EXT Creatinine 1.4 0.5 - 1.5 mg/dL OTHER (SPECIFY IN MEDICAL AND HEALTH SERVICES MANAGER) EXT Total Protein 7.2 6.0 - 8.3 OTHER (SPECIFY IN MEDICAL AND HEALTH SERVICES MANAGER) EXT Glucose, 180 Min 81 60 - 115 OTHER (SPECIFY IN MEDICAL AND HEALTH SERVICES MANAGER) EXT Chloride 109 96 - 114 OTHER ( SPECIFY IN MEDICAL AND HEALTH SERVICES MANAGER) EXT BUN (Blood Urea Nitrogen) 29 7 - 30 OTHER (SPECIF Y IN MEDICAL AND HEALTH SERVICES MANAGER) Blood 04/10/2022 12:0 8 PM SYSTEM DEVELOPMENT ENGINEER Historical Provider LAB BLOOD NON ADD-ON OTHER (SPECIFY IN MEDICAL AND HEALTH SERVICES MANAGER) N/A * (ABNORMAL) Basic Metabolic Panel (01/31/2021 12:36 AM SYSTEM DEVELOPMENT ENGINEER) Potassium, S 3.2(L) 3.6 - 5.2 mmol/L 01/31/2021 1:39 AM SYSTEM DEVELOPMENT ENGINEER DTL Sodium, S 144 135 - 145 mmol/L 01/31/2021 1:39 AM SYSTEM DEVELOPMENT ENGINEER DTL Chloride, S 102 98 - 107 mmol/L 01/31/2021 1:39 AM SYSTEM DEVELOPMENT ENGINEER DTL Bicarbonate, S 25 22 - 29 mmol/L 01/31/2021 1:39 AM SYSTEM DEVELOPMENT ENGINEER DTL Anion Gap 17(H) 7 - 15 01/31/2021 1:39 AM SYSTEM DEVELOPMENT ENGINEER DTL BUN (Blood Urea Nitrogen), S 28(H) 8 - 24 mg/dL 01/31/2021 1:39 AM SYSTEM DEVELOPMENT ENGINEER DTL Creatinine 1.55(H) 0.74 - 1.35 mg/dL 01/31/2021 1:39 AM SYSTEM DEVELOPMENT ENGINEER DTL eGFR-Non Black/ 44(L) >=60 mL/min/BSA 01/31/2021 1:39 AM SYSTEM DEVELOPMENT ENGINEER DTL Comment: ----ADDITIONAL INFORMATION---- Estimated GFR calculated using the 2009 CKD_EPI creatinine equation. eGFR-Black/Afri can [place] 51(L) >=60 mL/min/BSA 01/31/2021 1:39 AM SYSTEM DEVELOPMENT ENGINEER DTL Comment: ----ADDITIONAL INFORMATION---- Estimated GFR calculated using the 2009 CKD_EPI creatinine equation. Calcium, Total, S 8.6(L) 8.8 - 10.2 mg/dL 01/31/2021 1:39 AM SYSTEM DEVELOPMENT ENGINEER DTL Glucose, S 206(H) 70 - 140 mg/dL 01/31/2021 1:39 AM SYSTEM DEVELOPMENT ENGINEER DTL Blood (Blood, Venous) 01/31/2021 12:36 AM SYSTEM DEVELOPMENT ENGINEER 01/31/2021 1:25 AM SYSTEM DEVELOPMENT ENGINEER Billie Wilkinson M.D., M.B.A. LAB BLOOD ADD -ON [facility] [address] [place] [address], [place] DTL [facility] [place] [address] [place] [address] from Last 3 Months or Most Recently Relevant to Health Maintenance Advance Directives For more information, please contact: [phone] Documents on File Type Date Recorded Patient Piece Marker Small Arms Expl anation Advance Directives 01/19/2023 8:25 AM Anahy Luis HCPOA/ADVOCATE/AGENT/ MED SURG NURSE/SURROG ATE * Full Code (Latest Code Status on File) Date Activated Date Inactivated Comments 01/30/2021 9:38 PM 01/31/2021 4:28 PM Question Answer Comments Full Code: Discussed Healthcare Agents on File Name Relationship Healthcare Agent Relationship Communication Anahy Oralia Spouse Health Care Agent Tricia Audie Daughter First Alternate Health Care Agent Inocencia Toby Daughter Second Alternate Health Care Agent Care Teams Rn Women Services Relationship Specialty Start Date End Date Elsewhere, Pcp PCP - General Family Medicine 01/30/21
== END 2023-07-30 09:30 | disposition home or self-care (01) ==
LOC: LKVREF 09:30
PROVIDERS: PCP Family Medicine; Visit Provider Family Medicine
DX: Z00.00 Encounter for general adult medical examination without abnormal findings (principal); R97.20 Elevated prostate specific antigen [PSA]; E11.9 Type 2 diabetes mellitus without complications; E78.00 Pure hypercholesterolemia, unspecified; I10 Essential (primary) hypertension; E55.9 Vitamin D deficiency, unspecified; E87.6 Hypokalemia; R79.89 Other specified abnormal findings of blood chemistry
CPT/HCPCS: 80053; 80061; 82043; 82570; 84153

== ENCOUNTER 2023-08-04 11:00 | Outpatient (RCR) | payer MEDICARE, BC, SELFPAY ==
[2023-05-06 10:55] LABS: Basophils Percent Auto 0.5 % (0.0-3.0); Eosinophils Percent Auto 9.1 % (0.0-7.0); Hematocrit 42.4 % (37.0-53.0); Hemoglobin* 13.9 gm/dL (13.5-17.5); Immature Granulocytes Pct Auto 0.3 %; Lymphocytes Percent Auto 15.1 % (20-44); Mean Corpuscular HGB Conc 33 gm/dL (32-36); Mean Corpuscular Hemoglobin 31 pg (26-34); Mean Corpuscular Volume 94 fL (80-100); Monocytes Percent Auto 11.9 % (0.0-11.0); Neutrophils Percent Auto 63.1 % (42.0-72.0); Platelet Count* 189 K/uL (140-440); Red Blood Count 4.52 m/uL (4.30-5.90); White Blood Count* 3.85 K/uL (4.50-11.00)
[2023-05-06 10:59] LABS: Slide Review Reflex No
[2023-05-06 11:04] LABS: Albumin* 4.1 g/dL (3.3-5.0); Chloride* 104 mmol/L (96-114); Sodium* 140 mmol/L (135-149)
[2023-05-06 11:07] LABS: Alanine Aminotransferase* 13 U/L (4-50); Alkaline Phosphatase* 71 U/L (40-150); Anion Gap 8 mEq/L (7-15); Aspartate Amino Transferase* 17 U/L (12-35); Bilirubin Total* 0.3 mg/dL (0.1-1.5); Blood Urea Nitrogen* 26 mg/dL (7-30); Carbon Dioxide* 28 mmol/L (20-32); Creatinine* 1.2 mg/dL (0.5-1.5); Estimated Glomerular Filt Rate 64 ml/min; Glucose* 290 mg/dL (60-115); Total Protein* 6.8 g/dL (6.0-8.3)
[2023-05-06 11:08] LABS: Calcium* 9.9 mg/dL (8.4-10.6)
[2023-05-06 11:37] LABS: PSA Diagnostic* < 0.06 ng/mL (0.10-4.00)
--- NOTE | 2023-07-31 10:33 | URNOTE ---
Request received for prior authorization of Ena [id number]. Patient carries Medicare as primary insurance. No prior authorization is required, services are based on medical necessity and follow Medicare guidelines.
== END 2023-11-02 23:59 | disposition home or self-care (01) ==
LOC: CCIC 11:00
PROVIDERS: PCP Family Medicine; Referring Provider Family Medicine; Visit Provider Internal Medicine Hematology & Oncology
DX: C61 Malignant neoplasm of prostate (principal)
CPT/HCPCS: 36415; 80053; 84153; 85025; 96401; 99213; 99214; G0463; J9217

== ENCOUNTER 2023-11-24 09:46 | Outpatient (CLI) | payer MEDICARE, BC, SELFPAY ==
--- OUTSIDE RECORDS SUMMARY | 2023-11-24 09:50 | XMS_ITS | Clinical Summary ---
Author Organization [facility] Address [place], [place] [address] Care Team Providers Care Formal Service Waiter Name Role Phone Gilberto Cho MD Primary [...] Date Diagnosed Date Adenomatous colon polyp 03/15/2012 Overview (03/18/2017): Colonoscopy 03/2012 polyp repeat in 5 years [...] Additional history exists COVID-19 vaccine series ( season) 2023 Influenza for age 65+ 11/01/2023 Procedures Procedure Name Priority Date/Time Associated Diagnosis Comments COLONOSCOPY 03/17/2017 11:19 AM VMWARE ENGINEER from Last 3 Months or Most Recently Relevant to Health Maintenance Results * COLONOSCOPY (03/17/2017 11:19 AM VMWARE ENGINEER) 03/17/2017 11:1 9 AM VMWARE ENGINEER Narrative Transcriptions Latrell Keith MD - 03/18/2017 [...] adequate candidate for conscious sedation. The [id number] was passed through the anus and advanced [...] reponse to care. [facility] and nursing notes for moderate sedation details. Total physician intraservice time was 18 minutes. Latrell Keith MD 03/17/2017 12:30:42 PM This report has been signed electronically. Note Initiated On: 03/17/2017 11:19 AM Procedure Code(s): --- Professional --- 82486, Colonoscopy, flexible; with removalof tumor(s), polyp(s), or other lesion(s) bysnare technique Diagnosis Code(s): --- Professional --- D12.0, Benign neoplasm of cecum D12.2, Benign neoplasm of ascending colon D12.5, Benign neoplasm of sigmoid colon Z86.010, Personal history of colonicpolyps K57.30, Diverticulosis of large intestine without perforation or abscess withoutbleeding CPT copyright 2016 [employer]. All rights reserved. The codes documented in this report are preliminary and upon engineering document control clerk reviewmay be revised to meet current compliance requirements. Scope In: 12:08:02 PM Scope Withdrawal Time 0 hours 14 minutes 9 seconds Scope Out: 12:24:50 PM Latrell Keith MD PROCEDURE ORD from Last 3 Months or Most Recently Relevant to Health Maintenance Care Teams Formal Service Waiter Relationship Specialty Start Date End Date Gilberto Cho MD PCP - General Family Practice 03/17/17
--- OUTSIDE RECORDS SUMMARY | 2023-11-24 09:50 | XMS_ITS | Encounter Summary ---
Author Organization [facility] Address [address] [place] [id number] Care Team Providers Care Survey And Mapping Technician Name Role Phone Elsewhere, Pcp Primary Care Provider Unavailabl e Reason for Referral * Outpatient (Routine) - Closed Specialty Diagnoses / Procedures Referred By Contac t Referred To Contact Radiation Oncology Silvia Pendleton APRN, C.N.PAlvarez, D.N.P. [address] [place] [phone] London George M.D. [address] [place] [phone] Referral ID Status Reason Start Date Expiration Date Visits Re quested Visits Authorized [id number] Closed 01/13/2023 01/12/2026 1 1 Scheduling Instructions Please obtain recent PSA from [facility] and notes from Dr. Romero Reason for Visit * Outpatient (Routine) - Closed Specialty Diagnoses / Procedures Referred By Contac t Referred To Contact Radiation Oncology Silvia Pendleton APRN, C.N.P., D.N.P. [address] [place] [phone] London George M.D. 200 [place] [address] Referral ID Status Reason Start Date Expiration Date Visits Re quested Visits Authorized [id number] Closed 01/13/2023 01/12/2026 1 1 Encounter Details Date Type Department Care Team (Latest Contact Info) Description 09/23/2023 11:12 AM CDT - 10/09/2023 10:20 AM CDT Hospital Encounter Department of Radiation Oncology in [place], [place] [address] [place] [address] London George M.D. 200 [place] [phone] Rising Prostate Specific Antigen Following Treatment For Malignant Cancer Of Prostate (Primary Dx) Social History Tobacco Use Types Packs/Day Years Used Date Smoking Tobacco: Former Cigarettes Q uit: 01/30/1979 Smokeless Tobacco: Never Alcohol Use Standard Drinks/Week Comments Not Currently 0 (1 standard drink = 0.6 oz pur e alcohol) [facility] Utilities Answer Date Recorded In the past 12 months has [employer], gas, oil, or water [employer] threatened to shut off services in your home? No 09/19/2023 Humiliation, Afraid, Rape, and Kick questionnair e [...] How often do you attend chur or jehovah's witness services? Patient declined 07/18/2022 Do you belong to any clubs o r organizations such as oriental orthodox groups, unions, fraternal or [...] Answer Date Recorded PHQ-2 Score 0 01/21/2021 [facility] - Occupational Stress Questionnaire Answer Date Recorded [...] to strenuous exercise (like a brisk walk)? 1 day 09/19/2023 On average, how many minutes do you engage in exercise at this level? 20 min 09/19/2023 Hunger Vital Sign Answer Date Recorded Within the past 12 months, y ou worried that your food would run out before you got the money to buy more. Never true 09/19/19 24 Within the past 12 months, t he food you bought just didn't last and you didn't have money to get more. Never true 09/19/2023 PRAPARE - Transportation Answer Date Re corded In the past 12 months, has l ack of transportation kept you from medical appointments or from getting medications? No 08/31 In the past 12 months, has l ack of transportation kept you from meetings, work, or from getting things needed for daily living? No 09/19/2023 Nutrition Answer Date Recorded On average, how many serving s of fruits and vegetables do you eat per day (serving size is equal to 1 cup or approximately the size of a tennis ball)? 0-2 09/19/2023 Dental Answer Date Recorded Dental: Regular Dentist Yes 09/07/19 Employment Answer Date Recorded Employment status Retired 09/19/2023 Housing Stability Answer Date Recorded What is your living situation today? I have a [facility] place to live 09/19/2023 Education Answer Date Recorded What is the highest level of school you have completed or the highest degree you have received? Associate degree: occupational, technical, or vocational program 07/18/2022 Sex and Gender Information Value Date Recorded Sex Assigned at Male 06/27/2021 1:28 PM CDT Gender Identity Male 06/27/2021 1:28 PM CDT Sexual Orientation Straight 06/27/2021 1: 28 PM CDT documented as of this encounter Last Filed Vital Signs Vital Sign Reading Time Taken Comments Blood Pressure 130/67 09/23/2023 11:36 AM CDT Pulse 57 09/23/2023 11:36 AM CDT Temperature 36.2 ??C (97.2 ??F) 09/23/2023 11:36 AM C DT Respiratory Rate - - Oxygen Saturation - - Inhaled Oxygen Concentration - - Weight 88.2 kg (194 lb 7.1 oz) 09/23/2023 11:36 AM CDT Height - - Body Mass Index 30.88 01/30/2021 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 01/31/2021 amLODIPine (NORVASC) 10 mg tablet Take 10 mg by mouth daily. 05/18/2020 apalutamide (Erleada) 60 mg tablet Take 4 tablets (240 mg total) by mouth daily. 120 tablet 6 02/03/[address] tablet Hold for one week post-surgery 01/31/2021 blood sugar diagnostic (Accu-Chek Guide test strips) strips 2 times daily. 05/22/2020 cholecalciferol, vitamin D3, 25 mcg (1,000 Unit) tablet Daily cloNIDine (CATAPRES) 0.1 mg tablet Take 2 tablets by mouth 2 (two) times a day. 07/01/2022 lancets 2 times daily. 05/22/2020 lisinopriL (PRINIVIL,ZESTRIL) 40 mg tablet Take 40 mg by mouth at bedtime. 05/18/2020 metFORMIN (Glucophage) 500 mg tablet Take 500 mg by mouth daily. metoprolol tartrate (LOPRESSOR) 50 mg tablet Twice A Day 05/18/2020 potassium chloride (K-TAB) 20 mEq CR tablet Take 40 mEq by mouth 2 (two) times a day. 05/01/2022 spironolactone (ALDACTONE) 25 mg tablet Take 25 mg by mouth daily. 12/14/2021 documented as of this encounter Progress Notes * Yenny Suarez P.A.-C., M.S. - 09/23/2023 11:30 AM CDT SUBJECTIVE DIAGNOSIS 1. Rising Prostate Specific Antigen Following Treatment For Malignant Cancer Of Prostate SUPERVISED BY: London George M.D. ([id number]) HISTORY OF PRESENT ILLNESS Mr. Cory Barton is a 72-year-old male with persistently positive PSA following prostatectomy. He completed salvage radiotherapy to the prostate bed and pelvic lymph nodes on September 18, 2021. He was initiated on ADT in June 2021 with leuprolide, aiming for 18-36 months. He was started on Abiraterone in September 2021 and then transitioned to Apalutamide due to insurance coverage. His oncologic history is as follows: Oncology History Overview Note January 30, 2021: Robot-assisted, laparoscopic, bilateral non-nerve sparing radical prostatectomy and bilateral pelvic lymphadenectomy. Larwill 4+5, pT3a N0 R0. Prep PSA 5.3 [...] measuring 8-10 mm. Seminal vesicles were not palpable. Recommended proceeding with an MRI followed by a biopsy. 08/17/2020 Critical Imaging MRI of the prostate demonstrated a prostate volume of 79 cc. There was an approximately 22 x 13 x 15 mm T2 hypointense lesion in the left posterior lateral mid apical peripheral zone, suspicious for clinically significant prostate cancer (PI-RADS 5). Marked nodular hypertrophy without a definite juan picious lesion in the transition zone. Broad capsular contact of the left peripheral zone lesion with capsular bulging and irregularity, worrisome for extracapsular extension and neurovascular bundleinvolvement. No seminal vesicle invasion. No enlarged pelvic lymph nodes. No suspicious bone lesions. 08/30/2020 Biopsy/Pathology Prostate biopsy was performed by Dr. Oswald. Prostate volume was 87.3 cc. Hypoechoic lesion was identified in the peripheral zone at the left apex, extended slightly on the right. PATHOLOGY: A. Right prostate core biopsies: Benign prostate tissue. B. Left prostate core biopsies: Prostate adenocarcinoma, Larwill grade 3 + 3 (grade group 1), less than 1 mm in greatest linear dimension involving 1 of 6 cores / core-like fragments and involving less than 5% of the submitted tissue. C. Left apex prostate core biopsies: Prostate adenocarcinoma, Valencia grade 3 + 4 (grade group 2), 2 mm in greatest linear dimension involving 2 of 4 cores and involving less than 5% of the submittedtissue. 01/30/2021 Surgery and Procedures Robotic-assisted radical prostatectomy and bilateral pelvic dissection was performed by Dr. Lenny Gaspar. PATHOLOGY: A. Lymph nodes, bilateral pelvic, dissection: Multiple (6) lymph nodes are negative for metastatic carcinoma. B. Prostate gland, radical prostatectomy: Adenocarcinoma (Larwill pattern 4+5, grade group 5) is identified [...] Acinar adenocarcinoma Histologic Grade Grade Group and Larwill Score Grade Group 3 (Valencia Score 4+5=9) [...] 1.9 ng/mL 07/02/2021: PSA 1.9 ng/mL 07/02/2021 Critical Imaging C11 choline PET-CT scan demonstrated extruded tracer within the bladder, but no obvious abnormal uptake in the prostatectomy bed. Small mildly choline avid lymph nodes in the mid right external iliacand distal left external iliac regions, concerning for metastases. Additional more intense choline avid distal external right iliac lymph nodes. No other choline avid lymph nodes in the abdomen or pelvis. No choline avid bone lesions identified. MRI demonstrated postoperative changes of prostatectomy. Mild increased perfusion to the left of the urethra without a discrete lesion identified, nonspecific. Indeterminate/equivocal [...] patient would like to pursue radiotherapy in [place]. A referral was placed. He left the arrangement of ADT and referral to Medical Oncology to Dr. George. 07/30/2021 - Biological/Targeted/Hormone Therapy 07/30/2021: Bicalutamide 50 mg daily for 3 weeks 08/05/2021: Leuprolide 22.5 mg injection at [facility]. 10/29/2021: Leuprolide 22.5 mg injection at [facility]. 02/03/2022: Eligard 45 mg injection at [facility]. 08/04/2022: Eligard 45 mg injection 02/03/2023: Eligard 45 mg injection 08/04/2023: Eligard 45 mg injection 08/05/2021 - 09/18/2021 Radiation Therapy 6400 cGy in 32 fractions to the prostate fossa and 4500 cGy in 25 fractions to the pelvic lymph nodes with an integrated or sequential boost to the choline avid lymph nodes. Radiation Therapy Treatment Details (Noted on 07/25/2021) Site: Prostate - Bed Technique: No technique specified Goal: Curative Planned Treatment Start Date: 08/07/2021 Critical Imaging DEXA bone density scan demonstrated osteopenia. T-score of -1.9 in the right and left femoral neck. 09/12/2021 Other PSA 0.37 ng/mL 10/14/2021 - Biological/Targeted/Hormone Therapy Abiraterone and prednisone initiated under the care of Dr. White at [facility]. Abiraterone discontinued April 2022 and Apalutamide initiated due to insurance coverage. Apalutamide was causing significant headaches so he discontinued around 07/15/2022 for a short time in which headaches completely resolved. He did continue at 50% dose on July 29, 2022. He continues 50% dose. 11/05/2021 Other 11/05/2021: PSA <0.06 ng/mL 12/18/2021: PSA <0.06 ng/mL 02/03/2022 Other PSA 0.07 ng/mL 05/05/2022 Other 05/05/2022: PSA <0.06 ng/mL 07/23/2022: PSA <0.06 ng/mL 10/28/2022: PSA <0.06 ng/mL 01/06/2023: PSA <0.06 ng/mL 07/30/2023: PSA <0.06 ng/mL INTERVAL HISTORY: The patient was seen and examined today with Dr. George. The patient reports doing well overall. He reports good energy levels overall. He is continuing treatment with leuprolide and apalutamide under the care of Dr. Romreo. He reports tolerating these medications well overall. He reports that his energy is okay overall. He reports stable urination. He has stable stress urinary incontinence with certain activities. He does wear a pad. He denies dysuriaor hematuria. He reports regular bowel movements. He denies rectal bleeding. He reports chronic arthritic pain, but denies new bone pain. PATIENT COMPLETED QUESTIONNAIRES: I-PSS I-PSS Urinary Symptoms Score: 5 I-PSS Quality of Life Score: 2 IIEF-15 Erectile Function:03/31 Orgasmic Function:0/10 Sexual Desire:2/10 [place] Satisfaction: 0/15 Overall satisfaction:210 Total Score:5/75 REVIEW OF SYSTEMS Review of systems was negative except as documented above. OBJECTIVE BP 130/67 (BP Location: Right arm, Patient Position: Sitting, Cuff Size: Regular) Pulse (!) 57 Temp 36.2 ??C (Temporal) Wt 88.2 kg BMI 30.88 kg/m?? PHYSICAL EXAMINATION General: Alert and oriented, in no apparent distress. ASSESSMENT / PLAN #1 Stage IIIC (pT3a, pN0, cM0, PSA: 5.3, Grade Group: 5) adenocarcinoma the prostate, status post margin negative prostatectomy on February 10, 2021 with persistently positive PSA of 1.9 ng/mL most recently on July 04, 2021 #2 Choline PET/CT scan with choline avid right mid and distal external iliac lymph nodes and distalleft external iliac lymph nodes #3 Androgen deprivation therapy initiated with bicalutamide 50 mg daily for 3 weeks on July 30, 2021; leuprolide 22.5 mg injection on August 05, 2021 at [facility]; plan for 24 months of therapy #4 Stress urinary incontinence following prostatectomy, scant in amount #5 Erectile dysfunction preceding prostatectomy #6 Salvage intensity modulated radiotherapy to prostate fossa, PET + pelvic lymph nodes initiated on August 05, 2021; completed on September 18, 2021 #7 Osteopenia on bone density scan from August 07, 2021 #[address] Arnold on August 08, 2021 and initiated on October 14, 2021; discontinued April 21, 2022 due to insurance coverage issues; apalutamide substituted but caused headaches, continued on 50% reduced dose The patient is doing well overall following radiation therapy, now two years from treatment completion. We reviewed his recent PSA result of less than 0.06 ng/mL. He denies any persistent side effects from radiation therapy He is continuing to receive leuprolide and apalutamide under the care of Dr. Romero, which he reports tolerating well. The current plan is for him to likely discontinue apalutamide in October 2023, but he will have a visit with Dr. Romero prior. The patient is continuing close follow-up with Dr. Romero with regular PSA monitoring every 3 months at this time. We discussed the option of continued follow-up here; however, the patient would prefer to follow with Dr. Romero and his primary provider for regular PSA monitoring and leave follow-up here only as needed. He knows that the goal is for his PSA to remain undetectable. We discussed that he should reach back out to our clinic if his PSA would become detectable again in the future or if he has new symptoms or concerns related to his previous radiation treatment. We will not order for a follow-up visit to be scheduled here at this time. He will contact us with questions or concerns. He verbally expressed his understanding of the plan. EDUCATION: Ready to learn, no apparent learning barriers were identified; learning preferences include listening. Explained diagnosis and treatment plan; patient expressed understanding of the content. I personally spent 26 minutes in care of the patient today. Time includes both non face to face andface to face patient care. Signed by: Yenny Suarez P.A.-C., M.S. 09/23/2023 11:56 AM CDT [facility] [address] [place] [address] Associated attestation - London George M.D. - 10/09/2023 10:19 AM CDT I saw and evaluated the patient and participated in the [place] portions of the service. I reviewed thedocumentation of Yenny Suarez P.A.-C. and agree with the findings and plan. Mr. Cory Barton is a 72-year-old male with persistently positive PSA following prostatectomy. He completed salvage radiotherapy with a long course of ADT (aiming for 18-36 months of androgen deprivation therapy) on September 18, 2021. His most recent PSA on July 30, 2023 was undetectable. He continues with leuprolide and apalutamide under the care of Dr. Romero. He is tolerating this well. The patient appears well on exam. The patient would like to continue under Dr. Romero's care going forward. Hence, we will not schedule a formal follow-up here. We remain on his team. He can contact us at any time with questions or concerns. He verbalized satisfaction with this plan. I spent a total of 7 minutes caring for this patient in [id number] and non [id number] time. Signed by: London George M.D. 10/09/23 10:19 AM CDT [facility] [place] documented in this encounter Miscellaneous Notes * Addendum Note - Emma Perez C.N.AAlvarez - 09/23/2023 11:30 AM CDTEncounter addended by: Emma Perez C.N.AAlvarez on: 10/12/2023 7:03 AM Actions taken: Letter saved documented in this encounter Plan of Treatment Scheduled Referrals Name Type Priority Associated Diagnoses Order Schedule Radiation Oncology office visit (clinic) Outpatient Referral Routine Once for 1 Occurrences starting 09/23/2023 until 09/23/2023 documented as of this encounter Visit Diagnoses Diagnosis Rising Prostate Specific Antigen Following Treatment For Malignant Cancer Of Prostate- Primary documented in this encounter Care Teams Survey And Mapping Technician Relationship Specialty Start Date End Date Elsewhere, Pcp PCP - General Family Medicine 01/30/21 documented as of this encounter
--- OUTSIDE RECORDS SUMMARY | 2023-11-24 09:50 | XMS_ITS ---
Author Organization [facility] Address [address] [place] [address] Care Team Providers Care Financial Foundations Associate Name Role Phone Unavailable Unavailable Unavailable Surgery Details Not on file Complications Check Surgery Details section. Procedure Estimated Blood Loss Check Surgery Details section. Procedure Findings Check Surgery Details section. Procedure Specimens Taken Check Surgery Details section.
--- OUTSIDE RECORDS SUMMARY | 2023-11-24 09:50 | XMS_ITS | Clinical Summary ---
Author Organization [facility] Address [address] [place] [address] Care Team Providers Care Copy Director Name Role Phone Elsewhere, Pcp Primary Care Provider Unavailabl e Source Comments Patient records contain information from all sites at [facility]. For routine questions regarding patient records, call [phone] during business hours, M-F 8:00 AM - 5:00 PM Central Time. Record requests for emergency care only can be directed to [phone] at any time.[facility] Allergies No known active allergies Medications [...] 2 (two) times a day. 05/01/2022 Active metFORMIN (Glucophage) 500 mg tablet Take 500 mg by mouth daily. Active Active Problems Problem Noted Date Diagnosed [...] 5) - Unsigned Polyp Colon Adenomatous 03/15/2012 Overview (01/21/2021): Colonoscopy 03/2012 polyp repeat in 5 years Colonoscopy 03/2017 polyp, repeat in 5 years Encounters Date Type Department Care Team Description 09/23/2023 11:12 AM CDT - 10/09/2023 10:20 AM CDT Hospital Encounter Department of Radiation Oncology in [address] [address] [place] George M.D. Rising Prostate Specific Antigen Following Treatment For Malignant Cancer Of Prostate (Primary Dx) 09/21/2023 9:30 AM CDT Clinical Communication Virtual Review in [place], [place] [address] [place] [address] from Last 3 Months Immunizations Name Administration Dates Next Due HZV (ZOSTAVAX) 11/02/2013 Influenza high dose QV(65 ye ars or older) (PF) 11/11/2020,11/21/2019 PCV13 02/14/2016 PPSV23 07/21/2017 RZV (SHINGRIX) 03/07/2019,08/04/2018 Tdap 02/17/2017 influenza trivalent high dose (HD)(PF) ,12/29/2017,11/27/2016 Family History Medical History Relation Name Comments [...] drink = 0.6 oz pur e alcohol) [employer] Answer Date Recorded In the past 12 months has e [employer], gas, oil, or water [employer] threatened to shut off services in your [...] week 07/18/2022 How often do you attend [facility] or pentecostalism services? Patient declined 07/18/2022 Do you belong to any clubs o r organizations such as sabianism groups, unions, fraternal or athletic [...] Answer Date Recorded PHQ-2 Score 0 01/21/2021 [facility] - Occupational Stress [...] your living situation today? I have a [facility] place to live 09/19/2023 Education Answer Date [...] 09/23/2023 11:36 AM C DT Respiratory Rate 15 01/31/2021 12:30 PM PROGRESSIVE CARE NURSE Oxygen Saturation 93% 01/31/2021 12:30 PM PROGRESSIVE CARE NURSE Inhaled Oxygen Concentration - - Weight 88.2 kg (194 lb 7.1 oz) 09/23/2023 11:36 AM CDT Height 169 cm (5' 6.54) 01/30/2021 11:48 AM PROGRESSIVE CARE NURSE Body Mass Index 30.88 01/30/2021 11:48 AM PROGRESSIVE CARE NURSE Plan of Treatment Health Maintenance Due Date Last Done Comments Abdominal Aortic Aneurysm (AAA) Screen 1949 CT Colonography 1950 Cologuard 1950 Hepatitis C Screening 1950 Office Visit for Blood Pressure Check / Re-check 1949 Fasting Glucose for Diabetes Screening 01/31/2022 01/31/2021, 01/21/2021 Colonoscopy 03/17/2022 03/17/2017 Colorectal Cancer Surveillance 03/17/2022 Depression Screening (Annual PHQ-2) 03/02/2023 Fall Risk Screen (Annual) 03/02/2023 Creatinine Level (Kidney Function Test) 04/10/2023 04/10/2022, 11/18/2021, 01/31/2021, Additional history exists Potassium Level 04/10/2023 04/10/2022, 10/31, 01/31/2021, Additional history exists Sodium Level 04/10/2023 04/10/2022, 10/31, 01/31/2021, Additional history exists COVID-19 Vaccine ( season) 2023 03/09/2022, 11/28/2021, 07/09/2021, Additional history exists Influenza Vaccine (#1) 2023 , 12/13/2021, 11/11/2020, Additional history exists DTaP,Tdap,and Td Vaccines (2 - Td or Tdap) 02/17/2027 02/17/2017 Zoster Vaccines Completed 03/07/2019, 06/0 06/2018, 11/02/2013 Pneumococcal vaccine (65+ years) Completed 01/01/2023, 07/21/2017, 02/14/2016 HPV Vaccines Aged Out No longer eligi ble based on patient's age to complete this topic Medical Devices Implanted Type Area Automobile Mechanic Apprentice Device Identifier Shelf Expiration Date Model / Serial / Lot Clp Hmol Plmr Lg - [id number] Implanted:Qty : 1 on 01/30/2021 by Lenny Gaspar M.D. at [facility] Hardware e.g. pins/screws/ rods [employer] [id number] 10/29/2025 [id number] / / [id number] Clp Hmol Plmr Lg - [id number] Implanted:Qty : 1 on 01/30/2021 by Lenny Gaspar M.D. at [facility] Hardware e.g. pins/screws/ rods uTaPflex Triumfant [id number] 09/23/2025 [id number] / / [id number] Clp Hmol Plmr Lg - [id number] Implanted:Qty : 1 on 01/30/2021 by Lenny Gaspar M.D. at [facility] Hardware e.g. pins/screws/ rods [employer] [id number] 10/14/2025 [id number] / / [id number] Clp Hmol Plmr Lg - [id number] Implanted:Qty : 1 on 01/30/2021 by Lenny Gaspar M.D. at [facility] Hardware e.g. pins/screws/ rods [employer] [id number] 10/22/2025 [id number] / / [id number] Clp Hmol Plmr Md - [id number] Implanted:Qty : 1 on 01/30/2021 by Lenny Gaspar M.D. at [facility] Hardware e.g. pins/screws/ rods [employer] [id number] 05/27/2025 [id number] / / [id number] Clp Hmol Plmr Md - [id number] Implanted:Qty : 1 on 01/30/2021 by Lenny Gaspar M.D. at [facility] Hardware e.g. pins/screws/ rods [employer] [id number] 05/21/2025 [id number] / / [id number] Clp Hmol Plmr Md - [id number] Implanted:Qty : 1 on 01/30/2021 by Lenny Gaspar M.D. at [facility] Hardware e.g. pins/screws/ rods [employer] [id number] 09/23/2025 [id number] / / [id number] Clp Hmol Plmr Md - [id number] Implanted:Qty : 1 on 01/30/2021 by Lenny Gaspar M.D. at [facility] Hardware e.g. pins/screws/ rods [employer] [id number] 09/02/2025 [id number] / / [id number] Clp Hmol Plmr - [id number] Implanted:Qty : 1 on 01/30/2021 by Lenny Gaspar M.D. at [facility] Hardware e.g. pins/screws/ rods [employer] [id number] 09/23/2025 [id number] / / [id number] Clp Mark Valle Md - [id number] Implanted:Qty : 1 on 01/30/2021 by Lenny Gaspar M.D. at [facility] Hardware e.g. pins/screws/ rods Secure[employer] [id number] 05/21/2025 [id number] / / [id number] Procedures Procedure Name Priority Date/Time Associated Diagnosis Comments HEMATOLOGY/ONCOLOGY - BLOOD, EXTERNAL LAB RESULTS Routine 04/10/2022 12:08 PM PROGRESSIVE CARE NURSE BASIC METABOLIC PANEL, S/P Routine 01/31/2021 12:36 AM PROGRESSIVE CARE NURSE from Last 3 Months or Most Recently Relevant to Health Maintenance Results * Hematology/Oncology - Blood, External Lab Results (04/10/2022 12:08 PM PROGRESSIVE CARE NURSE) EXT Hemoglobin 13.8 13.5 - 17.5 OTHER (SPECIFY IN AUTOMOTIVE WINDOW TINTER) EXT Leukocytes 5.43 4.50 - 11.00 OTHER (SPECIFY IN AUTOMOTIVE WINDOW TINTER) EXT Absolute Neutrophil Count 3.88 1.7 - 7.0 OTHER (SPEC CHRIS IN AUTOMOTIVE WINDOW TINTER) EXT Platelet Count 210 140 - 440 OTHER (SPECIFY IN AUTOMOTIVE WINDOW TINTER) EXT AST 21 12 - 35 OTHER (SPE CIFY IN AUTOMOTIVE WINDOW TINTER) EXT ALT 20 4 - 50 OTHER (SPE CIFY IN AUTOMOTIVE WINDOW TINTER) EXT Alkaline Phosphatase 63 40 - 150 OTHER (SPECIFY IN AUTOMOTIVE WINDOW TINTER) EXT Bilirubin, Total 0.4 0.1 - 1.5 mg/dL OTHER (SPECIFY IN AUTOMOTIVE WINDOW TINTER) EXT Albumin 4.3 3.3 - 5.0 g/dL OTHER (SPECIFY IN AUTOMOTIVE WINDOW TINTER) EXT Sodium 145 135 - 149 mmol/L OTHER (SPECIFY IN AUTOMOTIVE WINDOW TINTER) EXT Potassium 4.5 3.6 - 5.1 OTHER (SPECIFY IN AUTOMOTIVE WINDOW TINTER) EXT Calcium, Total 9.8 8.4 - 10.6 OTHER (SPECIFY IN AUTOMOTIVE WINDOW TINTER) EXT Creatinine 1.4 0.5 - 1.5 mg/dL OTHER (SPECIFY IN AUTOMOTIVE WINDOW TINTER) EXT Total Protein 7.2 6.0 - 8.3 OTHER (SPECIFY IN AUTOMOTIVE WINDOW TINTER) EXT Glucose, 180 Min 81 60 - 115 OTHER (SPECIFY IN AUTOMOTIVE WINDOW TINTER) EXT Chloride 109 96 - 114 OTHER ( SPECIFY IN AUTOMOTIVE WINDOW TINTER) EXT BUN (Blood Urea Nitrogen) 29 7 - 30 OTHER (SPECIF Y IN AUTOMOTIVE WINDOW TINTER) Blood 04/10/2022 12:0 8 PM PROGRESSIVE CARE NURSE Historical Provider LAB BLOOD NON ADD-ON OTHER (SPECIFY IN AUTOMOTIVE WINDOW TINTER) N/A * (ABNORMAL) Basic Metabolic Panel (01/31/2021 12:36 AM PROGRESSIVE CARE NURSE) Potassium, S 3.2(L) 3.6 - 5.2 mmol/L 01/31/2021 1:39 AM PROGRESSIVE CARE NURSE DTL Sodium, S 144 135 - 145 mmol/L 01/31/2021 1:39 AM PROGRESSIVE CARE NURSE DTL Chloride, S 102 98 - 107 mmol/L 01/31/2021 1:39 AM PROGRESSIVE CARE NURSE DTL Bicarbonate, S 25 22 - 29 mmol/L 01/31/2021 1:39 AM PROGRESSIVE CARE NURSE DTL Anion Gap 17(H) 7 - 15 01/31/2021 1:39 AM PROGRESSIVE CARE NURSE DTL BUN (Blood Urea Nitrogen), S 28(H) 8 - 24 mg/dL 01/31/2021 1:39 AM PROGRESSIVE CARE NURSE DTL Creatinine 1.55(H) 0.74 - 1.35 mg/dL 01/31/2021 1:39 AM PROGRESSIVE CARE NURSE DTL eGFR-Non Black/ 44(L) >=60 mL/min/BSA 01/31/2021 1:39 AM PROGRESSIVE CARE NURSE DTL Comment: ----ADDITIONAL INFORMATION---- Estimated GFR calculated using the 2009 CKD_EPI creatinine equation. eGFR-Black/Afri can [place] 51(L) >=60 mL/min/BSA 01/31/2021 1:39 AM PROGRESSIVE CARE NURSE DTL Comment: ----ADDITIONAL INFORMATION---- Estimated GFR calculated using the 2009 CKD_EPI creatinine equation. Calcium, Total, S 8.6(L) 8.8 - 10.2 mg/dL 01/31/2021 1:39 AM PROGRESSIVE CARE NURSE DTL Glucose, S 206(H) 70 - 140 mg/dL 01/31/2021 1:39 AM PROGRESSIVE CARE NURSE DTL Blood (Blood, Venous) 01/31/2021 12:36 AM PROGRESSIVE CARE NURSE 01/31/2021 1:25 AM PROGRESSIVE CARE NURSE Billie Wilkinson M.D., M.B.A. LAB BLOOD ADD -ON [facility] [address] [place] [address], [place] DTL [facility] [address] [place] [address] from Last 3 Months or Most Recently Relevant to Health Maintenance Advance Directives For more information, please contact: [phone] Documents on File Type Date Recorded Patient Masonry Instructor Expl anation Advance Directives 01/19/2023 8:25 AM Anahy GalindoHortensia Luis HCPOA/ADVOCATE/AGENT/ CONTESTANT COORDINATOR/SURROG ATE * Full Code (Latest Code Status on File) Date Activated Date Inactivated Comments 01/30/2021 9:38 PM 01/31/2021 4:28 PM Question Answer Comments Full Code: Discussed Healthcare Agents on File Name Relationship Healthcare Agent Relationship Communication Anahy Barton Spouse Health Care Agent Tricia Audie Daughter First Alternate Health Care Agent Inocencia Luis Daughter Second Alternate Health Care Agent Care Teams Copy Director Relationship Specialty Start Date End Date Elsewhere, Pcp PCP - General Family Medicine 01/30/21
--- OUTSIDE RECORDS SUMMARY | 2023-11-24 09:50 | XMS_ITS | Encounter Summary ---
Author Organization [facility] Address [address] [place] [address] Care Team Providers Care Front Worker Name Role Phone Elsewhere, Pcp Primary Care Provider Unavailabl e Encounter Details Date Type Department Care Team (Latest Contact Info) Description 09/21/2023 9:30 AM CDT Clinical Communication Virtual Review in [place], [place] [address] [place] [address] Social History Tobacco Use Types Packs/Day Years Used Date Smoking Tobacco: Former Cigarettes Q uit: 01/30/1979 Smokeless Tobacco: Never Tobacco Cessation:Counseling Given: Not Answered Alcohol Use Standard Drinks/Week Comments Not Currently 0 (1 standard drink = 0.6 oz pur e alcohol) [facility] Utilities Answer Date Recorded In the past 12 months has [employer], gas, oil, or water Only-apartments threatened to shut off services in your [...] week 07/18/2022 How often do you attend [facility] or jainism services? Patient declined 07/18/2022 Do you belong to any clubs o r organizations such as religious groups, unions, fraternal or athletic [...] Answer Date Recorded PHQ-2 Score 0 01/21/2021 [facility] - Occupational [...] your living situation today? I have a [facility] place to live 09/19/2023 Education Answer Date [...] this encounter Plan of Treatment Not on file documented as of this encounter Visit Diagnoses Not on filedocumented in this encounter Care Teams Front Worker Relationship Specialty Start Date End Date Elsewhere, Pcp PCP - General Family Medicine 01/30/21 documented as of this encounter
--- OUTSIDE RECORDS SUMMARY | 2023-11-24 09:50 | XMS_ITS ---
Author Organization [facility] Address [address] [place] [address] Care Team Providers Care Recreation Counselor Name Role Phone Elsewhere, Pcp Primary Care [...] Treated Prescribed Fraction Dose Prescribed Total Dose [id number] S 09/18/2021 44 7 of 7 200 cGy 1,400 cGy [id number] 09/09/2021 35 25 of 25 200 cGy 5,000 cGy Reference Point Last Treated On Elapsed Days Session Dose Total Dose [id number] 09/18/2021 44 200 cGy 6,400 cGy
--- OUTSIDE RECORDS SUMMARY | 2023-11-24 09:50 | XMS_ITS | Referral Summary ---
Author Organization [facility] Address [address] [place] [address] Care Team Providers Care Contracts Analyst Name Role Phone Elsewhere, Pcp Primary Care Provider Unavailabl e Source Comments Patient records contain information from all sites at [facility]. For routine questions regarding patient records, call [phone] during business hours, M-F 8:00 AM - 5:00 PM Central Time. Record requests for emergency care only can be directed to [phone] at any time.[facility] Encounters Date Type Department Care Team Description 09/23/2023 11:12 AM CDT - 10/09/2023 10:20 AM CDT Hospital Encounter Department of Radiation Oncology in [place], [place] [address] [place] [id number] [place] George M.D. Rising Prostate Specific Antigen Following Treatment For Malignant Cancer Of Prostate (Primary Dx) 09/21/2023 9:30 AM CDT Clinical Communication Virtual Review in [place], [place] [address] [place] [address] from Last 3 Months Allergies No known active allergies Medications Medication [...] 02/17/2017 influenza trivalent high dose (HD)(PF) ,12/29/2017,11/27/2016 Social History Tobacco Use Types Packs/Day Years Used Date Smoking Tobacco: Former Cigarettes Q uit: 01/30/1979 Smokeless Tobacco: Never Tobacco Cessation:Counseling Given: Not Answered Alcohol Use Standard Drinks/Week Comments Not Currently 0 (1 standard drink = 0.6 oz pur e alcohol) [facility] Tarariities Answer Date Recorded In the past 12 months has e [employer], [employer], oil, or water [employer] threatened to shut off services in your [...] week 07/18/2022 How often do you attend [facility] or nondenominational services? Patient declined 07/18/2022 Do you belong to any clubs o r organizations such as latter day groups, unions, fraternal or [...] Answer Date Recorded PHQ-2 Score 0 01/21/2021 [facility] Occup[facility] Health - Occupational [...] your living situation today? I have a [facility] place to live 09/19/2023 Education Answer [...] DT Respiratory Rate 15 01/31/2021 12:30 PM POTATO CHIP MAKER Oxygen Saturation 93% 01/31/2021 12:30 PM POTATO CHIP MAKER Inhaled Oxygen Concentration - - Weight 88.2 kg (194 lb 7.1 oz) 09/23/2023 11:36 AM CDT Height 169 cm (5' 6.54) 01/30/2021 11:48 AM POTATO CHIP MAKER Body Mass Index 30.88 01/30/2021 11:48 AM POTATO CHIP MAKER Plan of Treatment Not on file Medical Devices Implanted Type Area Eight Section Blower Device Identifier Shelf Expiration Date Model / Serial / Lot [facility] Plmr Lg - [id number] Implanted:Qty : 1 on 01/30/2021 by Lenny Gaspar M.D. at [facility] Hardware e.g. pins/screws/ rods [employer] [id number] 10/29/2025 [id number] / / [id number] [facility] Hmol Plmr Lg - [id number] Implanted:Qty : 1 on 01/30/2021 by Lenny Gaspar M.D. at [facility] Hardware e.g. pins/screws/ rods [employer] [id number] 09/23/2025 [id number] / / [id number] Clp Hmol Plmr Lg - [id number] Implanted:Qty : 1 on 01/30/2021 by Lenny Gaspar M.D. at [facility] Hardware e.g. pins/screws/ rods [employer] [id number] 10/14/2025 [id number] / / [id number] Clp Hmol Plmr Dat - [id number] Implanted:Qty : 1 on 01/30/2021 by Lenny Gaspar M.D. at [facility] Hardware e.g. pins/screws/ rods [employer] [id number] 10/22/2025 [id number] / / [id number] Clp Hmol Plmr Md - [id number] Implanted:Qty : 1 on 01/30/2021 by Lenny Gaspar M.D. at [facility] Hardware e.g. pins/screws/ rods [employer] [id number] 05/27/2025 [id number] / / [id number] Clp Hmol Plmr - [id number] Implanted:Qty : 1 on 01/30/2021 by Lenny Gaspar M.D. at [facility] Hardware e.g. pins/screws/ rods [employer] [id number] 05/21/2025 [id number] / / [id number] Clp Hmol Plmr - [id number] Implanted:Qty : 1 on 01/30/2021 by Lenny Gaspar M.D. at [facility] Hardware e.g. pins/screws/ rods [employer] [id number] 09/23/2025 [id number] / / [id number] Clp Hmol Plmr - [id number] Implanted:Qty : 1 on 01/30/2021 by Lenny Gaspar M.D. at [facility] Hardware e.g. pins/screws/ rods [employer] [id number] 09/02/2025 [id number] / / [id number] Clp Mark Tori Cheng [id number] Implanted:Qty : 1 on 01/30/2021 by Lenny Gaspar M.D. at [facility] Hardware e.g. pins/screws/ rods Restore [employer] [id number] 09/23/2025 [id number] / / [id number] Clp Mark Riveramr Md Cheng [id number] Implanted:Qty : 1 on 01/30/2021 by Lenny Gaspar M.D. at [facility] Hardware e.g. pins/screws/ rods Restore [employer] [id number] 05/21/2025 [id number] / / [id number] Procedures Procedure Name Priority Date/Time Associated Diagnosis Comments HEMATOLOGY/ONCOLOGY - BLOOD, EXTERNAL LAB RESULTS Routine 04/10/2022 12:08 PM POTATO CHIP MAKER BASIC METABOLIC PANEL, S/P Routine 01/31/2021 12:36 AM POTATO CHIP MAKER from Last 3 Months or Most Recently Relevant to Health Maintenance Results * Hematology/Oncology - Blood, External Lab Results (04/10/2022 12:08 PM POTATO CHIP MAKER) EXT Hemoglobin 13.8 13.5 - 17.5 OTHER (SPECIFY IN SENIOR TAX ANALYST) EXT Leukocytes 5.43 4.50 - 11.00 OTHER (SPECIFY IN SENIOR TAX ANALYST) EXT Absolute Neutrophil Count 3.88 1.7 - 7.0 OTHER (SPEC CHRIS IN SENIOR TAX ANALYST) EXT Platelet Count 210 140 - 440 OTHER (SPECIFY IN SENIOR TAX ANALYST) EXT AST 21 12 - 35 OTHER (SPE CIFY IN SENIOR TAX ANALYST) EXT ALT 20 4 - 50 OTHER (SPE CIFY IN SENIOR TAX ANALYST) EXT Alkaline Phosphatase 63 40 - 150 OTHER (SPECIFY IN SENIOR TAX ANALYST) EXT Bilirubin, Total 0.4 0.1 - 1.5 mg/dL OTHER (SPECIFY IN SENIOR TAX ANALYST) EXT Albumin 4.3 3.3 - 5.0 g/dL OTHER (SPECIFY IN SENIOR TAX ANALYST) EXT Sodium 145 135 - 149 mmol/L OTHER (SPECIFY IN SENIOR TAX ANALYST) EXT Potassium 4.5 3.6 - 5.1 OTHER (SPECIFY IN SENIOR TAX ANALYST) EXT Calcium, Total 9.8 8.4 - 10.6 OTHER (SPECIFY IN SENIOR TAX ANALYST) EXT Creatinine 1.4 0.5 - 1.5 mg/dL OTHER (SPECIFY IN SENIOR TAX ANALYST) EXT Total Protein 7.2 6.0 - 8.3 OTHER (SPECIFY IN SENIOR TAX ANALYST) EXT Glucose, 180 Min 81 60 - 115 OTHER (SPECIFY IN SENIOR TAX ANALYST) EXT Chloride 109 96 - 114 OTHER ( SPECIFY IN SENIOR TAX ANALYST) EXT BUN (Blood Urea Nitrogen) 29 7 - 30 OTHER (SPECIF Y IN SENIOR TAX ANALYST) Blood 04/10/2022 12:0 8 PM POTATO CHIP MAKER Historical Provider LAB BLOOD NON ADD-ON OTHER (SPECIFY IN SENIOR TAX ANALYST) N/A * (ABNORMAL) Basic Metabolic Panel (01/31/2021 12:36 AM POTATO CHIP MAKER) Potassium, S 3.2(L) 3.6 - 5.2 mmol/L 01/31/2021 1:39 AM POTATO CHIP MAKER DTL Sodium, S 144 135 - 145 mmol/L 01/31/2021 1:39 AM POTATO CHIP MAKER DTL Chloride, S 102 98 - 107 mmol/L 01/31/2021 1:39 AM POTATO CHIP MAKER DTL Bicarbonate, S 25 22 - 29 mmol/L 01/31/2021 1:39 AM POTATO CHIP MAKER DTL Anion Gap 17(H) 7 - 15 01/31/2021 1:39 AM POTATO CHIP MAKER DTL BUN (Blood Urea Nitrogen), S 28(H) 8 - 24 mg/dL 01/31/2021 1:39 AM POTATO CHIP MAKER DTL Creatinine 1.55(H) 0.74 - 1.35 mg/dL 01/31/2021 1:39 AM POTATO CHIP MAKER DTL eGFR-Non Black/ 44(L) >=60 mL/min/BSA 01/31/2021 1:39 AM POTATO CHIP MAKER DTL Comment: ----ADDITIONAL INFORMATION---- Estimated GFR calculated using the 2009 CKD_EPI creatinine equation. eGFR-Black/Afri can [place] 51(L) >=60 mL/min/BSA 01/31/2021 1:39 AM POTATO CHIP MAKER DTL Comment: ----ADDITIONAL INFORMATION---- Estimated GFR calculated using the 2009 CKD_EPI creatinine equation. Calcium, Total, S 8.6(L) 8.8 - 10.2 mg/dL 01/31/2021 1:39 AM POTATO CHIP MAKER DTL Glucose, S 206(H) 70 - 140 mg/dL 01/31/2021 1:39 AM POTATO CHIP MAKER DTL Blood (Blood, Venous) 01/31/2021 12:36 AM POTATO CHIP MAKER 01/31/2021 1:25 AM POTATO CHIP MAKER Billie Wilkinson M.D., M.B.A. LAB BLOOD ADD -ON [facility] [address] [place] [address], [place] [facility] [address] [place] [address] from Last 3 Months or Most Recently Relevant to Health Maintenance Advance Directives For more information, please contact: [phone] Documents on File Type Date Recorded Patient Insurance Actuary Expl anation Advance Directives 01/19/2023 8:25 AM Anahy Josesito Luis HCPOA/ADVOCATE/AGENT/ EDI DEVELOPER/SURROG ATE * Full Code (Latest Code Status on File) Date Activated Date Inactivated Comments 01/30/2021 9:38 PM 01/31/2021 4:28 PM Question Answer Comments Full Code: Discussed Healthcare Agents on File Name Relationship Healthcare Agent Relationship Communication Anahy Barton Spouse Health Care Agent Tricia Bronson Daughter First Alternate Health Care Agent Inocencia Luis Daughter Second Alternate Health Care Agent Care Teams Contracts Analyst Relationship Specialty Start Date End Date Elsewhere, Pcp PCP - General Family Medicine 01/30/21
--- NOTE | 2023-11-24 11:31 | P.ANES_ITS ---
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
--- NOTE | 2023-11-24 11:35 | W.ANESCHARGE ---
Anesthesia Charges Start Date/Time Anesthesia Start Date: 11/24/23 Anesthesia Start Time: 10:56 Stop Date/Time Anesthesia Stop Date: 11/24/23 Anesthesia Stop Time: 11:28 Summary Extremes of Age - Over 70 or under 1: MDA
== END 2023-11-24 09:47 | disposition home or self-care (01) ==
LOC: OP CLINIC 09:47
PROVIDERS: PCP Family Medicine; Visit Provider Surgery
DX: Z12.11 Encounter for screening for malignant neoplasm of colon (principal); K62.89 Other specified diseases of anus and rectum; Z86.010 Personal history of colon polyps
CPT/HCPCS: 00811; 45380; 88305; 99100; J2704

== ENCOUNTER 2023-12-14 13:45 | Outpatient (RCR) | payer MEDICARE, BC, SELFPAY ==
--- NOTE | 2023-12-07 15:48 | PT.OPEX ---
PT [place] Outpatient Eval PT [facility] Outpatient Eval Start: 12/07/23 12:52 Freq: Status: Active Protocol: Document 12/07/23 12:52 ENM (Rec: 12/07/23 15:43 ENM [id number]) E-signed By Mary Bradford, DPT Physical Therapy Outpatient Evaluation Insurance Information Recert Due Date 03/06/24 Insurance Name Medicare B Medical Diagnosis patellar tendinitis, left knee Treating Diagnosis left knee pain, decreased knee strength, impaired stair navigation, impaired balance Imaging Report Information no significant findings on xray Referring MD Pan Subjective Subjective Patient presents to PT for complaint of left knee pain. The pain started about a year and a half ago. He was a building a deck with a lot of kneeling. He thought he had knelt on a rock. Since then the pain has not gone away and continued to be an issue. Xray was negative for significant findings. The pain stays about the same doesn't increase more than a 2-3/10. He stays active taking care of the acres of his home. Is wanting to start going to the senior center. PMHx: depression, HTN, prostate cancer, arthritis, When it started: 1.5 years ago Describes it as: burning sensation Location: patellar tendon Irritability: mild Severity: mild Pain Comments at its best: none at its worse: 2-3/10 easing: avoiding activities aggravating: going down the stairs, putting weight on it, kneeling on it, walking down a hill Current Work Status Retired Objective Other/Pertinent Objective Knee AROM L knee 2-0-128 R knee 2-0-127 Hip AROM: WFL Strength: 30s STS 30 reps without arms, slight discomfort in the knee 5xSTS 13.93s Knee extensors: L 4/5 R 5/5 Hip abductors: L 4-/5 R 4/5 Step down: + for pain with starting weight acceptance and at end range Palpation/joint mobility: Patellar mobility: hypermobile B + for pain palpating proximal patellar tendon Gait/balance: SLS L side challenging able to hold 7s, R side 10s without difficulty Assessment Assessment/Impression Patient is a 73 year old male presenting with 1.5 years history of left knee pain. Symptoms started after repetitive kneeling working on making a deck. Pains are present with going down hills, kneeling and going down steps . Pains are a 2-3/10 on average and have not improved since injury. Upon assessment patients concordant pains brought on with repetitive sit to stands, step downs and palpation of proximal patellar tendon. Patient displays decreased hip and knee strength on left side compared to right. As well as difficulty with SLS on affected side compared to unaffected. Symptoms consistent with patellar tendinopathy. Cory would greatly benefit from skilled PT to address impairments stated above in order to perform all functional mobility and household duties without significant discomfort or difficulty. Primary Functional Limitations going down hills, going down steps, kneeling Plan of Care Rehabilitation Potential Good Rehabilitation Potential Comments fair-good Physical Therapy Goals In 5-7 visits: 1. Patient will be IND with HEP and self management of symptoms 2. Patient will perform x10 squats without pain to demonstrate improvements in LE functional strength 3. Patient will be able to descend the stairs without discomfort 4. Patient will be able to kneel with 2/10 or less knee pain for improved ability to perform household duties Coordination/Communication With Referral Source Treatment Plan/Direct Interventions Electrical Stimulation,Gait Training,Ice/Cold/ Vasopneumatic,Joint Mobilization,Manual Therapy, Neuromuscular Re-ed,Self-Care/ Home Management,Therapeutic Activities,Therapeutic Exercises Frequency/Duration 1x a week for 5-7 visits Patient Will Be Discharged From Therapy Completion of LTG(s), Independent w/HEP Evaluation Billing Untimed Code Treatment Minutes 26 Complexity Low Certification Information Initial Certification Date 12/07/23 Ending Certification Date 03/06/24 Provider Signature Required Yes Provider Signature Shows Agreement With POC & Medical Necessity Physician NPI Number Write NPI# Here Physician Comment/Change : Physician Signature & Date Requested Please Sign/Date Here
== END 2024-01-26 10:11 | disposition home or self-care (01) ==
PROVIDERS: PCP Family Medicine; Visit Provider Orthopaedic Surgery Sports Medicine
DX: M76.52 Patellar tendinitis, left knee (principal); M25.562 Pain in left knee; R53.1 Weakness; R26.81 Unsteadiness on feet; Z51.89 Encounter for other specified aftercare
CPT/HCPCS: 97110; 97161

== ENCOUNTER 2023-12-16 08:32 | Outpatient (CLI) | payer MEDICARE, BC, SELFPAY ==
--- OUTSIDE RECORDS SUMMARY | 2023-12-16 08:34 | XMS_ITS ---
Author Organization [facility] Address [address] [place] [address] Care Team Providers Care Open Source Developer Name Role Phone Unavailable Unavailable Unavailable Surgery Details Not on file Complications Check Surgery Details section. Procedure Estimated Blood Loss Check Surgery Details section. Procedure Findings Check Surgery Details section. Procedure Specimens Taken Check Surgery Details section.
--- OUTSIDE RECORDS SUMMARY | 2023-12-16 08:34 | XMS_ITS | Clinical Summary ---
Author Organization [facility] Address [address] [place] [address] Care Team Providers Care Gas Check Pad Maker Name Role Phone Elsewhere, Pcp Primary Care Provider Unavailabl e Source Comments Patient records contain information from all sites at [facility]. For routine questions regarding patient records, call [phone] during business hours, M-F 8:00 AM - 5:00 PM Central Time. Record requests for emergency care only can be directed to [phone] at any time.[facility] Allergies No known active allergies Medications * This document contains information received from the source organization and may not represent a complete record from that organization. amLODIPine (NORVASC) 10 mg tablet Take 10 mg by mouth daily. 1 Active blood sugar diagnostic (Accu-Chek Guide test strips) strips 2 times daily. 1 Active cholecalciferol , vitamin D3, 25 mcg (1,000 Unit) tablet Daily Active lancets 2 times daily. 1 Active lisinopriL (PRINIVIL,ZESTR IL) 40 mg tablet Take 40 mg by mouth at bedtime. 1 Active metoprolol tartrate (LOPRESSOR) 50 mg tablet Twice A Day 1 Active acetaminophen (TYLENOL) 500 mg tablet Take 2 tablets (1,000 mg total) by mouth every 6 (six) hours as needed for pain. [address] tablet Hold for one week post-surgery 1 Active spironolactone (ALDACTONE) 25 mg tablet Take 25 mg by mouth daily. 2 Active apalutamide (Erleada) 60 mg tablet Take 4 tablets (240 mg total) by mouth daily. 120 tablet 6 2 Active Additional Information Patient taking differently: 120 mgoral Daily, Reported on 01/08/2023 cloNIDine (CATAPRES) 0.1 mg tablet Take 2 tablets by mouth 2 (two) times a day. 3 Active potassium chloride (K-TAB) 20 mEq CR tablet Take 40 mEq by mouth 2 (two) times a day. 3 Active metFORMIN (Glucophage) 500 mg tablet Take 500 mg by mouth daily. 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 Rising Prostate Specific Antigen Following Treatment For Malignant Cancer Of Prostate (Primary Dx) 09/21/2023 9:30 AM CDT Clinical Communication Virtual Review in [place], [place] [address] [place] [phone] from Last 3 Months Immunizations Name Administration Dates Next Due HZV (ZOSTAVAX) 11/02/2013 Influenza high dose QV(65 ye ars or older) (PF) 11/11/2020,11/21/2019 PCV13 02/14/2016 PPSV23 07/21/2017 RZV (SHINGRIX) 03/07/2019,08/04/2018 Tdap 02/17/2017 influenza trivalent high dose (HD)(PF) 9,12/29/2017,11/27/2016 Family History Medical History Relation Name Comments [...] drink = 0.6 oz pur e alcohol) [employer] Answer Date Recorded In the past 12 months has e [employer], gas, oil, or water [employer] threatened to shut off services in your [...] 07/18/2022 How often do you attend chur ch or gnosticist services? Patient declined 07/18/2022 Do you belong to any clubs o r organizations such as nondenominational groups, unions, fraternal or athletic [...] Answer Date Recorded PHQ-2 Score 0 01/21/2021 [facility] Occupat ional Health - Occupational Stress [...] your living situation today? I have a [facility] place to live 09/19/2023 Education Answer Date Recorded What is the highest level of school you have completed or the highest degree you have received? 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[employer] Gender Identity Male 06/27/2021 1:28 PM CDT Sexual Orientation Straight 06/27/2021 1: 28 PM CDT Last Filed Vital Signs Vital Sign Reading Time Taken Comments Blood Pressure 130/67 09/23/2023 11:36 AM CDT Pulse 57 09/23/2023 11:36 AM CDT Temperature 36.2 ??C (97.2 ??F) 09/23/2023 11:36 AM C DT Respiratory Rate 15 01/31/2021 12:30 PM SUPERVIS[employer] Oxygen Saturation 93% 01/31/2021 12:30 PM [employer] Inhaled Oxygen Concentration - - Weight 88.2 kg (194 lb 7.1 oz) 09/23/2023 11:36 AM CDT Height 169 cm (5' 6.54) 01/30/2021 11:48 AM SU[employer] Body Mass Index 30.88 01/30/2021 11:48 AM SUPER[employer] Plan of Treatment Health Maintenance Due Date [...] Tdap) 02/17/2027 02/17/2017 Zoster Vaccines Completed 03/07/2019, 06/2018, 11/02/2013 Pneumococcal vaccine (65+ years) Completed 01/01/2023, 07/21/2017, 02/14/2016 HPV Vaccines Aged Out No longer eligi ble based on patient's age to complete this topic Medical Devices Implanted Type Area Superintendent Refuse Disposal Device Identifier Shelf Expiration Date Model / Serial / Lot [facility] Lg - [id number] Implanted:Qty : 1 on 01/30/2021 by Lenny Gaspar M.D. at [facility] Hardware e.g. pins/screws/ rods [id number] [id number] 10/29/2025 [id number] / / [id number] [facility] - [id number] Implanted:Qty : 1 on 01/30/2021 by Lenny Gaspar M.D. at [facility] Hardware e.g. pins/screws/ rods [employer]ocr[employer] [id number] 09/23/2025 [id number] / / [id number] Clp Hmol Plmr Lg - [id number] Implanted:Qty : 1 on 01/30/2021 by Lenny Gaspar M.D. at [facility] Hardware e.g. pins/screws/ rods [employer] [id number] 10/14/2025 [id number] / / [id number] Clp Hmol Plmr Lg - [id number] Implanted:Qty : 1 on 01/30/2021 by Lenny Gaspar M.D. at [facility] Hardware e.g. pins/screws/ rods [employer] [id number] 10/22/2025 [id number] / / [id number] Clp Hmol Plmr Md - [id number] Implanted:Qty : 1 on 01/30/2021 by Lenny Gaspar M.D. at [facility] Hardware e.g. pins/screws/ rods [employer] [id number] 05/27/2025 [id number] / / [id number] Clp Hmol Plmr Md - [id number] Implanted:Qty : 1 on 01/30/2021 by Lenny Gaspar M.D. at [facility] Hardware e.g. pins/screws/ rods [employer] [id number] 05/21/2025 [id number] / / [id number] Clp Hmol Plmr Md - [id number] Implanted:Qty : 1 on 01/30/2021 by Lenny Gaspar M.D. at [facility] Hardware e.g. pins/screws/ rods [employer] [id number] 09/23/2025 [id number] / / [id number] Clp Hmol Plmr Md - [id number] Implanted:Qty : 1 on 01/30/2021 by Lenny Gaspar M.D. at [facility] Hardware e.g. pins/screws/ rods [employer] [id number] 09/02/2025 [id number] / / [id number] Clp Hmol Plmr Md - [id number] Implanted:Qty : 1 on 01/30/2021 by Lenny Gaspar M.D. at [facility] Hardware e.g. pins/screws/ rods [employer] [id number] 09/23/2025 [id number] / / [id number] Clp Mark Valle Md - [id number] Implanted:Qty : 1 on 01/30/2021 by Lenny Gaspar M.D. at [facility] Hardware e.g. pins/screws/ rods [employer] [id number] 05/21/2025 [id number] / / [id number] Procedures Procedure Name Priority Date/Time Associated Diagnosis Comments HEMATOLOGY/ONCOLOGY - BLOOD, EXTERNAL LAB RESULTS Routine 04/10/2022 12:08 PM [employer]PER[employer] BASIC METABOLIC PANEL, S/P Routine 01/31/2021 12:36 AM SUPER[employer] from Last 3 Months or Most Recently Relevant to Health Maintenance Results * Hematology/Oncology - Blood, External Lab Results (04/10/2022 12:08 PM SUPER[employer]) EXT Hemoglobin 13.8 13.5 - 17.5 OTHER (SPECIFY IN EDUCATION COORDINATOR) EXT Leukocytes 5.43 4.50 - 11.00 OTHER (SPECIFY IN EDUCATION COORDINATOR) EXT Absolute Neutrophil Count 3.88 1.7 - 7.0 OTHER (SPEC CHRIS IN EDUCATION COORDINATOR) EXT Platelet Count 210 140 - 440 OTHER (SPECIFY IN EDUCATION COORDINATOR) EXT AST 21 12 - 35 OTHER (SPE CIFY IN EDUCATION COORDINATOR) EXT ALT 20 4 - 50 OTHER (SPE CIFY IN EDUCATION COORDINATOR) EXT Alkaline Phosphatase 63 40 - 150 OTHER (SPECIFY IN EDUCATION COORDINATOR) EXT Bilirubin, Total 0.4 0.1 - 1.5 mg/dL OTHER (SPECIFY IN EDUCATION COORDINATOR) EXT Albumin 4.3 3.3 - 5.0 g/dL OTHER (SPECIFY IN EDUCATION COORDINATOR) EXT Sodium 145 135 - 149 mmol/L OTHER (SPECIFY IN EDUCATION COORDINATOR) EXT Potassium 4.5 3.6 - 5.1 OTHER (SPECIFY IN EDUCATION COORDINATOR) EXT Calcium, Total 9.8 8.4 - 10.6 OTHER (SPECIFY IN EDUCATION COORDINATOR) EXT Creatinine 1.4 0.5 - 1.5 mg/dL OTHER (SPECIFY IN EDUCATION COORDINATOR) EXT Total Protein 7.2 6.0 - 8.3 OTHER (SPECIFY IN EDUCATION COORDINATOR) EXT Glucose, 180 Min 81 60 - 115 OTHER (SPECIFY IN EDUCATION COORDINATOR) EXT Chloride 109 96 - 114 OTHER ( SPECIFY IN EDUCATION COORDINATOR) EXT BUN (Blood Urea Nitrogen) 29 7 - 30 OTHER (SPECIF Y IN EDUCATION COORDINATOR) Blood 04/10/2022 12:0 8 PM SUPER[employer] us Historical Provider LAB BLOOD NON ADD-ON Final R esult OTHER (SPECIFY IN EDUCATION COORDINATOR) N/A * (ABNORMAL) Basic Metabolic Panel (01/31/2021 12:36 AM SUPER[employer]) Potassium, S 3.2(L) 3.6 - 5.2 mmol/L 01/31/2021 1:39 AM [employer] DTL Sodium, S 144 135 - 145 mmol/L 01/31/2021 1:39 AM [employer] DTL Chloride, S 102 98 - 107 mmol/L 01/31/2021 1:39 AM [employer] DTL Bicarbonate, S 25 22 - 29 mmol/L 01/31/2021 1:39 AM [employer] DTL Anion Gap 17(H) 7 - 15 01/31/2021 1:39 AM [employer] DTL BUN (Blood Urea Nitrogen), S 28(H) 8 - 24 mg/dL 01/31/2021 1:39 AM [employer] DTL Creatinine 1.55(H) 0.74 - 1.35 mg/dL 01/31/2021 1:39 AM [employer] DTL eGFR-Non Black/ 44(L) >=60 mL/min/BSA 01/31/2021 1:39 AM SU[employer] DTL Comment: ----ADDITIONAL INFORMATION---- Estimated GFR calculated using the 2009 CKD_EPI creatinine equation. eGFR-Black/Afri can [place] 51(L) >=60 mL/min/BSA 01/31/2021 1:39 AM SUPER[employer] DTL Comment: ----ADDITIONAL INFORMATION---- Estimated GFR calculated using the 2009 CKD_EPI creatinine equation. Calcium, Total, S 8.6(L) 8.8 - 10.2 mg/dL 01/31/2021 1:39 AM [employer] DTL Glucose, S 206(H) 70 - 140 mg/dL 01/31/2021 1:39 AM [employer] DTL Blood (Blood, Venous) 01/31/2021 12:36 AM [employer] 01/31/2021 1:25 AM SUPER[employer] Billie Wilkinson M.D., M.B.A. LAB BLOOD ADD-ON Manju l Result [facility] [address] [place] [address], [facility] DTL [facility] [address] [place] [address] from Last 3 Months or Most Recently Relevant to Health Maintenance Insurance [facility] MEDICARE Advance Directives For more information, please contact: [phone] Documents on File Type Date Recorded Patient Core Baker Expl anation Advance Directives 01/19/2023 8:25 AM Anahy Sellers [place] HCPOA/ADVOCATE/AGENT/ SENIOR ACCOUNT CLERK/SURROG ATE * Full Code (Latest Code Status on File) Date Activated Date Inactivated Comments 01/30/2021 9:38 PM 01/31/2021 4:28 PM Question Answer Comments Full Code: Discussed Healthcare Agents on File Name Relationship Healthcare Agent Relationship Communication Anahy Barton Spouse Health Care Agent Tricia Bronson Daughter First Alternate Health Care Agent Inocencia Luis Daughter Second Alternate Health Care Agent Care Teams Gas Check Pad Maker Relationship Specialty Start Date End Date Elsewhere, Pcp PCP - General Family Medicine 01/30/21
--- OUTSIDE RECORDS SUMMARY | 2023-12-16 08:34 | XMS_ITS | Encounter Summary ---
Author Organization [facility] Address [address] [place] [address] Care Team Providers Care Armhole Sewer Name Role Phone Elsewhere, Pcp Primary Care Provider Unavailabl e Encounter Details Date Type Department Care Team (Latest Contact Info) Description 09/21/2023 9:30 AM CDT Clinical Communication Virtual Review in [place], [place] [address] [place] [address] Social History Tobacco Use Types Packs/Day Years Used Date Smoking Tobacco: Former Cigarettes Q uit: 01/30/1979 Smokeless Tobacco: Never Tobacco Cessation:Counseling Given: Not Answered Alcohol Use Standard Drinks/Week Comments Not Currently 0 (1 standard drink = 0.6 oz pur e alcohol) [facility] Utilities Answer Date Recorded In the past 12 months has [employer], gas, oil, or water [employer] threatened to shut off services in your [...] week 07/18/2022 How often do you attend [facility] or tenriism services? Patient declined 07/18/2022 Do you belong to any clubs o r organizations such as evangelical groups, unions, fraternal or athletic [...] Answer Date Recorded PHQ-2 Score 0 01/21/2021 [facility] of Occupat ional Health - Occupational [...] your living situation today? I have a [facility] place to live 09/19/2023 Education Answer Date Recorded What is the highest level of school you have completed or the highest degree you have received? 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
--- OUTSIDE RECORDS SUMMARY | 2023-12-16 08:34 | XMS_ITS | Encounter Summary ---
Author Organization [facility] Address [address] [place] [address] Care Team Providers Care Support Director Name Role Phone Elsewhere, Pcp Primary Care Provider Unavailabl e Reason for Referral * Outpatient (Routine) - Closed Specialty Diagnoses / Procedures Referred By Contac t Referred To Contact Radiation Oncology Silvia Pendleton APRN, C.N.P., D.N.P. [address] [place] [phone] Phone: tel: fax: London George M.D. [address] [place] [address] Phone: tel: fax: Referral ID Status Reason Start Date Expiration Date Visits Re quested Visits Authorized [id number] Closed 01/13/2023 01/12/2026 1 1 Scheduling Instructions Please obtain recent PSA from [facility] and notes from Dr. Romero Reason for Visit * Outpatient (Routine) - Closed Specialty Diagnoses / Procedures Referred By Contac t Referred To Contact Radiation Oncology Silvia Pendleton APRN, C.N.P., D.N.PAlvarez [address] [place] [address] Phone: tel: fax: London George M.D. [address] [place] [address] Phone: tel: fax: Referral ID Status Reason Start Date Expiration Date Visits Re quested Visits Authorized [id number] Closed 01/13/2023 01/12/2026 1 1 Encounter Details Date Type Department Care Team (Latest Contact Info) Description 09/23/2023 11:12 AM CDT - 10/09/2023 10:20 AM CDT Hospital Encounter Department of Radiation Oncology in [place], [place] [address] [place] [phone] London George M.D. [address] [place] [address] Rising Prostate Specific Antigen Following Treatment For Malignant Cancer Of Prostate (Primary Dx) Social History Tobacco Use Types Packs/Day Years Used Date Smoking Tobacco: Former Cigarettes Q uit: 01/30/1979 Smokeless Tobacco: Never Alcohol Use Standard Drinks/Week Comments Not Currently 0 (1 standard drink = 0.6 oz pur e alcohol) [facility] Utilities Answer Date Recorded In the past 12 months has [facility] [employer] gas, oil, or water [employer] threatened to shut off services in your [...] How often do you attend chur or sabianist services? Patient declined 07/18/2022 Do you belong to any clubs o r organizations such as shinto groups, unions, fraternal or athletic groups, or [...] Answer Date Recorded PHQ-2 Score 0 01/21/2021 [facility] - Occupational Stress Questionnaire Answer Date [...] your living situation today? I have a [facility] place to live 09/19/2023 Education Answer Date Recorded What is the highest level of school you have completed or the highest degree you have received? 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 05/22/2020 lisinopriL (PRINIVIL,ZESTRIL ) 40 mg tablet Take 40 mg by [...] Of Prostate SUPERVISED BY: London George M.D. ([phone]) HISTORY OF PRESENT ILLNESS Mr. Cory Barton [...] sparing radical prostatectomy and bilateral pelvic lymphadenectomy. [place] 4+5, pT3a N0 R0. Prep PSA 5.3 [...] Acinar adenocarcinoma Histologic Grade Grade Group and [place] Score Grade Group 3 ([place] Score 4+5=9) Minor Tertiary Pattern 5 (less [...] patient would like to pursue radiotherapy in [place]. A referral was placed. He left the arrangement of ADT and referral to Medical Oncology to Dr. George. 07/30/2021 - Biological/Targeted/Hormone Therapy 07/30/2021: Bicalutamide 50 mg daily for 3 weeks 08/05/2021: Leuprolide 22.5 mg injection at [facility]. 10/29/2021: Leuprolide 22.5 mg injection at [facility]. 02/03/2022: Eligard 45 mg injection at [facility]. 08/04/2022: Eligard 45 mg injection 02/03/2023: Eligard [...] under the care of Dr. White at [facility]. Abiraterone discontinued April 2022 and Apalutamide initiated [...] under the care of Dr. Romero. He reports tolerating these medications well overall. [...] IIEF-15 Erectile Function:03/31 Orgasmic Function:0/10 Sexual Desire:2/10 [place] Satisfaction: 0/15 Overall satisfaction:2/10 Total Score:5/75 REVIEW OF SYSTEMS Review of [...] mg injection on August 05, 2021 at [facility]; plan for 24 months of therapy #4 [...] Suarez P.A.-C., M.S. 09/23/2023 11:56 AM CDT [facility] [address] [place] [address] Cosigned by London George M.D. at 10/09/2023 10:19 AM CDT Associated attestation - London George [...] 7 minutes caring for this patient in thlj-qm-nhyf and non qtxq-vh-nrtt time. Signed by: London George M.D. 10/09/23 10:19 AM CDT [facility] Radiation Therapy [facility] documented in this encounter Miscellaneous Notes * Addendum Note - Emma Perez C.NGraeme - 09/23/2023 11:30 AM CDTEncounter addended by: Emma Perez C.NGraeme on: 10/12/2023 7:03 AM Actions taken: Letter [...] Primary documented in this encounter Care Teams Support Director Relationship Specialty Start Date End Date Elsewhere, Pcp PCP - General Family Medicine 01/30/21 documented as of this encounter
--- OUTSIDE RECORDS SUMMARY | 2023-12-16 08:34 | XMS_ITS ---
Author Organization [facility] Address [address] [place] [address] Care Team Providers Care Investment Consultant Name Role Phone Elsewhere, Pcp Primary Care Provider Unavailabl e Active Problems * This document contains information received from the source organization and may not represent a complete record from that organization. Problem Noted Date Diagnosed Date Secondary Malignant [...] Treated Prescribed Fraction Dose Prescribed Total Dose [id number] S 09/18/2021 44 7 of 7 200 cGy 1,400 cGy [id number] 09/09/2021 35 25 of 25 200 cGy 5,000 cGy Reference Point Last Treated On Elapsed Days Session Dose Total Dose [id number] 09/18/2021 44 200 cGy 6,400 cGy
--- OUTSIDE RECORDS SUMMARY | 2023-12-16 08:34 | XMS_ITS | Referral Summary ---
Author Organization [facility] Address [address] [place] [address] Care Team Providers Care Systems Operator Name Role Phone Elsewhere, Pcp Primary Care Provider Unavailabl e Source Comments Patient records contain information from all sites at [facility]. For routine questions regarding patient records, call [phone] during business hours, M-F 8:00 AM - 5:00 PM Central Time. Record requests for emergency care only can be directed to [phone] at any time.[facility] Encounters Date Type Department Care Team Description 09/23/2023 11:12 AM CDT - 10/09/2023 10:20 AM CDT Hospital Encounter Department of Radiation Oncology in [place], [place] [address] [place] [id number] [place] George M.D. Rising Prostate Specific Antigen Following Treatment For Malignant Cancer Of Prostate (Primary Dx) 09/21/2023 9:30 AM CDT Clinical Communication Virtual Review in [place], [place] [address] [place] [address] from Last 3 Months Allergies No known active allergies Medications * This document contains information received from the source organization and may not represent a complete record from that organization. amLODIPine (NORVASC) 10 mg tablet Take 10 mg by mouth daily. Active blood sugar diagnostic (Accu-Chek Guide test [...] 02/17/2017 influenza trivalent high dose (HD)(PF) 9,12/29/2017,11/27/2016 Social History Tobacco Use Types Packs/Day Years Used Date Smoking Tobacco: Former Cigarettes Q uit: 01/30/1979 Smokeless Tobacco: Never Tobacco Cessation:Counseling Given: Not Answered Alcohol Use Standard Drinks/Week Comments Not Currently 0 (1 standard drink = 0.6 oz pur e alcohol) [employer] Answer Date Recorded In the past 12 months has e [employer], oil, or water Resolver threatened to shut off services in your [...] week 07/18/2022 How often do you attend caro center or jew services? Patient declined 07/18/2022 Do you belong to any clubs o r organizations such as denominational groups, unions, fraternal or athletic groups, or [...] Answer Date Recorded PHQ-2 Score 0 01/21/2021 [facility] - Occupational Stress [...] your living situation today? I have a [facility] place to live 09/19/2023 Education Answer Date Recorded What is the highest level of school you have completed or the highest degree you have received? Associate degree: occupational, technical, or vocational program 07/18/2022 Sex and Gender Information Value Date Recorded Sex Assigned at Male 06/27/2021 1:28 PM CDT Legal Sex Male 8:58 PM TEXTILE SLITTING MACHINE OPERATOR Gender Identity Male 06/27/2021 1:28 PM CDT Sexual Orientation Straight 06/27/2021 1: 28 PM CDT Last Filed Vital Signs Vital Sign Reading Time Taken Comments Blood Pressure 130/67 09/23/2023 11:36 AM CDT Pulse 57 09/23/2023 11:36 AM CDT Temperature 36.2 ??C (97.2 ??F) 09/23/2023 11:36 AM C DT Respiratory Rate 15 01/31/2021 12:30 PM TEXTILE SLITTING MACHINE OPERATOR Oxygen Saturation 93% 01/31/2021 12:30 PM TEXTILE SLITTING MACHINE OPERATOR Inhaled Oxygen Concentration - - Weight 88.2 kg (194 lb 7.1 oz) 09/23/2023 11:36 AM CDT Height 169 cm (5' 6.54) 01/30/2021 11:48 AM TEXTILE SLITTING MACHINE OPERATOR Body Mass Index 30.88 01/30/2021 11:48 AM TEXTILE SLITTING MACHINE OPERATOR Plan of Treatment Not on file Medical Devices Implanted Type Area Motor Operator Device Identifier Shelf Expiration Date Model / Serial / Lot [facility]g - [id number] Implanted:Qty : 1 on 01/30/2021 by Lenny Gaspar M.D. at [facility] Hardware e.g. pins/screws/ rods [employer] [id number] 10/29/2025 [id number] / / [id number] Clp Hmol Plmr Lg - [id number] Implanted:Qty : 1 on 01/30/2021 by Lenny Gaspar M.D. at [facility] Hardware e.g. pins/screws/ rods [employer] [id number] 09/23/2025 [id number] / / [id number] Clp Hmol Plmr Lg - [id number] Implanted:Qty : 1 on 01/30/2021 by Lenny Gaspar M.D. at [facility] Hardware e.g. pins/screws/ rods [employer] [id number] 10/14/2025 [id number] / / [id number] Clp Hmol Plmr Lg - [id number] Implanted:Qty : 1 on 01/30/2021 by Lenny Gaspar M.D. at [facility] Hardware e.g. pins/screws/ rods [employer] [id number] 10/22/2025 [id number] / / [id number] Clp Hmol Plmr Md - [id number] Implanted:Qty : 1 on 01/30/2021 by Lenny Gaspar M.D. at [facility] Hardware e.g. pins/screws/ rods [employer] [id number] 05/27/2025 [id number] / / [id number] Clp Hmol Plmr Md - [id number] Implanted:Qty : 1 on 01/30/2021 by Lenny Gaspar M.D. at [facility] Hardware e.g. pins/screws/ rods [employer] [id number] 05/21/2025 [id number] / / [id number] Clp Hmol Plmr Md - [id number] Implanted:Qty : 1 on 01/30/2021 by Lenny Gaspar M.D. at [facility] Hardware e.g. pins/screws/ rods [employer] [id number] 09/23/2025 [id number] / / [id number] Clp Hmol Plmr Md - [id number] Implanted:Qty : 1 on 01/30/2021 by Lenny Gaspar M.D. at [facility] Hardware e.g. pins/screws/ rods [employer] exozet [id number] 09/02/2025 [id number] / / [id number] David Cheng [id number] Implanted:Qty : 1 on 01/30/2021 by Lenny Gaspar M.D. at [facility] Hardware e.g. pins/screws/ rods [employer] [id number] 09/23/2025 [id number] / / [id number] David Cheng [id number] Implanted:Qty : 1 on 01/30/2021 by Lenny Gaspar M.D. at [facility] Hardware e.g. pins/screws/ rods [employer] exozet [id number] 05/21/2025 [id number] / / [id number] Procedures Procedure Name Priority Date/Time Associated Diagnosis Comments HEMATOLOGY/ONCOLOGY - BLOOD, EXTERNAL LAB RESULTS Routine 04/10/2022 12:08 PM TEXTILE SLITTING MACHINE OPERATOR BASIC METABOLIC PANEL, S/P Routine 01/31/2021 12:36 AM TEXTILE SLITTING MACHINE OPERATOR from Last 3 Months or Most Recently Relevant to Health Maintenance Results * Hematology/Oncology - Blood, External Lab Results (04/10/2022 12:08 PM TEXTILE SLITTING MACHINE OPERATOR) EXT Hemoglobin 13.8 13.5 - 17.5 OTHER (SPECIFY IN EMPLOYEE BENEFITS SPECIALIST) EXT Leukocytes 5.43 4.50 - 11.00 OTHER (SPECIFY IN EMPLOYEE BENEFITS SPECIALIST) EXT Absolute Neutrophil Count 3.88 1.7 - 7.0 OTHER (SPEC CHRIS IN EMPLOYEE BENEFITS SPECIALIST) EXT Platelet Count 210 140 - 440 OTHER (SPECIFY IN EMPLOYEE BENEFITS SPECIALIST) EXT AST 21 12 - 35 OTHER (SPE CIFY IN EMPLOYEE BENEFITS SPECIALIST) EXT ALT 20 4 - 50 OTHER (SPE CIFY IN EMPLOYEE BENEFITS SPECIALIST) EXT Alkaline Phosphatase 63 40 - 150 OTHER (SPECIFY IN EMPLOYEE BENEFITS SPECIALIST) EXT Bilirubin, Total 0.4 0.1 - 1.5 mg/dL OTHER (SPECIFY IN EMPLOYEE BENEFITS SPECIALIST) EXT Albumin 4.3 3.3 - 5.0 g/dL OTHER (SPECIFY IN EMPLOYEE BENEFITS SPECIALIST) EXT Sodium 145 135 - 149 mmol/L OTHER (SPECIFY IN EMPLOYEE BENEFITS SPECIALIST) EXT Potassium 4.5 3.6 - 5.1 OTHER (SPECIFY IN EMPLOYEE BENEFITS SPECIALIST) EXT Calcium, Total 9.8 8.4 - 10.6 OTHER (SPECIFY IN EMPLOYEE BENEFITS SPECIALIST) EXT Creatinine 1.4 0.5 - 1.5 mg/dL OTHER (SPECIFY IN EMPLOYEE BENEFITS SPECIALIST) EXT Total Protein 7.2 6.0 - 8.3 OTHER (SPECIFY IN EMPLOYEE BENEFITS SPECIALIST) EXT Glucose, 180 Min 81 60 - 115 OTHER (SPECIFY IN EMPLOYEE BENEFITS SPECIALIST) EXT Chloride 109 96 - 114 OTHER ( SPECIFY IN EMPLOYEE BENEFITS SPECIALIST) EXT BUN (Blood Urea Nitrogen) 29 7 - 30 OTHER (SPECIF Y IN EMPLOYEE BENEFITS SPECIALIST) Blood 04/10/2022 12:0 8 PM TEXTILE SLITTING MACHINE OPERATOR us Historical Provider LAB BLOOD NON ADD-ON Final R esult OTHER (SPECIFY IN EMPLOYEE BENEFITS SPECIALIST) N/A * (ABNORMAL) Basic Metabolic Panel (01/31/2021 12:36 AM TEXTILE SLITTING MACHINE OPERATOR) Potassium, S 3.2(L) 3.6 - 5.2 mmol/L 01/31/2021 1:39 AM TEXTILE SLITTING MACHINE OPERATOR DTL Sodium, S 144 135 - 145 mmol/L 01/31/2021 1:39 AM TEXTILE SLITTING MACHINE OPERATOR DTL Chloride, S 102 98 - 107 mmol/L 01/31/2021 1:39 AM TEXTILE SLITTING MACHINE OPERATOR DTL Bicarbonate, S 25 22 - 29 mmol/L 01/31/2021 1:39 AM TEXTILE SLITTING MACHINE OPERATOR DTL Anion Gap 17(H) 7 - 15 01/31/2021 1:39 AM TEXTILE SLITTING MACHINE OPERATOR DTL BUN (Blood Urea Nitrogen), S 28(H) 8 - 24 mg/dL 01/31/2021 1:39 AM TEXTILE SLITTING MACHINE OPERATOR DTL Creatinine 1.55(H) 0.74 - 1.35 mg/dL 01/31/2021 1:39 AM TEXTILE SLITTING MACHINE OPERATOR DTL eGFR-Non Black/ 44(L) >=60 mL/min/BSA 01/31/2021 1:39 AM TEXTILE SLITTING MACHINE OPERATOR DTL Comment: ----ADDITIONAL INFORMATION---- Estimated GFR calculated using the 2009 CKD_EPI creatinine equation. eGFR-Black/Afri can Peruvian 51(L) >=60 mL/min/BSA 01/31/2021 1:39 AM TEXTILE SLITTING MACHINE OPERATOR DTL Comment: ----ADDITIONAL INFORMATION---- Estimated GFR calculated using the 2009 CKD_EPI creatinine equation. Calcium, Total, S 8.6(L) 8.8 - 10.2 mg/dL 01/31/2021 1:39 AM TEXTILE SLITTING MACHINE OPERATOR DTL Glucose, S 206(H) 70 - 140 mg/dL 01/31/2021 1:39 AM TEXTILE SLITTING MACHINE OPERATOR DTL Blood (Blood, Venous) 01/31/2021 12:36 AM TEXTILE SLITTING MACHINE OPERATOR 01/31/2021 1:25 AM TEXTILE SLITTING MACHINE OPERATOR Billie Wilkinson M.D., M.B.A. LAB BLOOD ADD-ON Manju l Result [facility] [address] [place] [address], [facility] [address] [place] [address] from Last 3 Months or Most Recently Relevant to Health Maintenance Insurance [facility] MEDICARE Advance Directives For more information, please contact: [phone] Documents on File Type Date Recorded Patient Science Liaison Expl anation Advance Directives 01/19/2023 8:25 AM Anahy Josesito Mitchellrozina Luis HCPOA/ADVOCATE/AGENT/ MUCK MINER/SURROG ATE * Full Code (Latest Code Status on File) Date Activated Date Inactivated Comments 01/30/2021 9:38 PM 01/31/2021 4:28 PM Question Answer Comments Full Code: Discussed Healthcare Agents on File Name Relationship Healthcare Agent Relationship Communication Anahy Barton Spouse Health Care Agent Tricia Audie Daughter First Alternate Health Care Agent Inocencia Luis Daughter Second Alternate Health Care Agent Care Teams Systems Operator Relationship Specialty Start Date End Date Elsewhere, Pcp PCP - General Family Medicine 01/30/21
--- OUTSIDE RECORDS SUMMARY | 2023-12-16 08:34 | XMS_ITS | Clinical Summary ---
Author Organization [facility] Address [place], [place] [address] Care Team Providers Care Commutator Tester Name Role Phone Gilberto Cho MD Primary Care Provider [phone] Allergies No known active allergies Medications Medication [...] Encounters Date Type Department Care Team Description 11/24/2023 Lab Requisition [facility] [phone] Antonette Moura MD from Last 3 Months Immunizations Name Administration Dates Next Due Zoster [...] history exists COVID-19 vaccine series ( - season) 2023 Influenza for age 65+ 11/01/2023 Procedures Procedure Name Priority Date/Time Associated Diagnosis Comments LAB TRACKING EVENT Routine 11/24/2023 11 :20 AM CDT PATH TISSUE EXAM Routine 11/24/2023 11:2 0 AM CDT COLONOSCOPY 03/17/2017 11:19 AM VEGETABLE TIER from Last 3 Months or Most Recently Relevant to Health Maintenance Results * LAB TRACKING EVENT (11/24/2023 11:20 AM CDT) Other (Other) Client Collect / Unknown 11/24/2023 11:20 AM CDT 11/24/2023 10:22 PM CDT Antonette Moura MD LAB BILL ONLY [facility] [address] [place] [address], * PATH TISSUE EXAM (11/24/2023 11:20 AM CDT) Case Report Pathology Report ?Case: [id number] ? Authorizing Provider: ??Antonette Moura MD ??Collected: ? 11/24/2023 1120 ? Ordering Location: ? [facility] ?Received: ?11/25/2023 0902 ? Pathologist: ? Darion Holland MD ? Specimen: ?Rectum ? 11/26/2023 1:41 PM CDT [facility] Final Diagnosis A) RECTUM, MILDLY ERYTHEMATOUS MUCOSA, BIOPSY: 1. Rectal mucosa without diagnostic abnormality (see comment) 2. Negative for proctitis 11/26/2023 1:41 PM CDT [facility] Comment This mucosa is likely within normal limits, although a minor degree of mechanical injury/irritati on cannot be entirely excluded histologically. There is certainly no evidence of an inflammatory proctitis. 11/26/2023 1:41 PM CDT [facility] Clinical Information Mr. Barton is a 73 y.o. with history of colon polyps undergoes surveillance colonoscopy. Biopsies obtained of an area of mildly erythematous mucosa in the rectum to assess for microscopic disease. 11/26/2023 1:41 PM CDT [facility] Gross Description A) Received in formalin are 5 felipe mucosal fragments averaging 2 mm in greatest dimension, which are entirely submitted in one cassette. It is labeled with the patient's name and designated rectum. RADHAMES Christie 11/25/2023 11:20 AM 11/26/2023 1:41 PM CDT [facility] Microscopic Description The final diagnosis is based on microscopic examination of appropriate sections of all specimens. 11/26/2023 1:41 PM CDT [facility] Additional Information Interpreted at [facility] - [address], [place] [address] 11/26/2023 1:41 PM CDT [facility] Other (Rectum) 11/24/2023 11 :20 AM CDT 11/25/2023 9:02 AM CDT Antonette Moura MD PATHOLOGY/[facility] [address] [place] [address], * COLONOSCOPY (03/17/2017 11:19 AM VEGETABLE TIER) 03/17/2017 11:1 9 AM VEGETABLE TIER Narrative Transcriptions Latrell Keith MD - 03/18/2017 [...] adequate candidate for conscious sedation. The [id number] was passed through the anus and advanced [...] reponse to care. [facility] and nursing [facility] for moderate sedation details. Total physician intraservice time was 18 minutes. Latrell Keith MD 03/17/2017 12:30:42 PM This report has been signed electronically. Note Initiated On: 03/17/2017 11:19 AM Procedure Code(s): --- Professional --- 79035, Colonoscopy, flexible; with removalof tumor(s), polyp(s), or other lesion(s) bysnare technique Diagnosis Code(s): --- Professional --- D12.0, Benign neoplasm of cecum D12.2, Benign neoplasm of ascending colon D12.5, Benign neoplasm of sigmoid colon Z86.010, Personal history of colonicpolyps K57.30, Diverticulosis of large intestine without perforation or abscess withoutbleeding CPT copyright 2016 [employer]. All rights reserved. The codes documented in this report are preliminary and upon bench assembler reviewmay be revised to meet current compliance requirements. Scope In: 12:08:02 PM Scope Withdrawal Time 0 hours 14 minutes 9 seconds Scope Out: 12:24:50 PM Latrell Keith MD PROCEDURE ORD from Last 3 Months or Most Recently Relevant to Health Maintenance Care Teams Commutator Tester Relationship Specialty Start Date End Date Gilberto Cho MD PCP - General Family Practice 03/17/17
--- NOTE | 2023-12-16 08:45 | CRLHL7_ITS ---
For Patients: As a result of the Cures Act, medical imaging exams and procedure reports are released immediately into your electronic medical record. You may view this report before your referring provider. If you have questions, please contact your health care provider. Examination: US abdominal aorta Indication: Abdominal aortic aneurysm screening. Technique: Baumann scale and color Doppler images of the aorta and common iliac arteries are obtained. Comparison: None Findings: Proximal aorta: 2.8 x 2.9 cm Mid aorta: 2.3 x 2.4 cm Distal aorta: 2.1 x 2.0 cm Right common iliac artery: 1.5 x 1.5 cm Left common iliac artery: 1.4 x 1.5 cm Impression: No abdominal aortic aneurysm. Dictated by Dexter Johnson MD @ 12/16/2023 10:15:46 AM (Electronically Signed)
== END 2023-12-16 08:33 | disposition home or self-care (01) ==
LOC: US 08:32
PROVIDERS: PCP Family Medicine; Visit Provider Family Medicine
DX: Z13.6 Encounter for screening for cardiovascular disorders (principal); Z87.891 Personal history of nicotine dependence
CPT/HCPCS: 76775

== ENCOUNTER 2023-12-30 07:50 | Outpatient (CLI) | payer MEDICARE, BC, SELFPAY ==
--- OUTSIDE RECORDS SUMMARY | 2023-12-31 08:29 | XMS_ITS | Clinical Summary ---
Author Organization [facility] Address [address] [place] [address] Care Team Providers Care Investment Executive Name Role Phone Elsewhere, Pcp Primary Care Provider Unavailabl e Source Comments Patient records contain information from all sites at [facility]. For routine questions regarding patient records, call [phone] during business hours, M-F 8:00 AM - 5:00 PM Central Time. Record requests for emergency care only can be directed to [phone] at any time.[facility] Allergies No known active allergies Medications * [...] Hospital Encounter Department of Radiation Oncology in [place], [place] [address] [place] [phone] London George M.D. Rising Prostate Specific Antigen Following Treatment For Malignant Cancer Of Prostate (Primary Dx) from Last 3 Months Immunizations Name Administration [...] drink = 0.6 oz pur e alcohol) [employer] Answer Date Recorded In the past 12 months has [employer], oil, or water [employer] threatened to shut off services in your [...] do you attend [facility] or sabianism services? Patient declined 07/18/2022 Do you belong to any clubs o r organizations such as congregation groups, unions, fraternal or athletic groups, or [...] Answer Date Recorded PHQ-2 Score 0 01/21/2021 [facility] - Occupational [...] your living situation today? I have a [facility] place to live 09/19/2023 Education Answer Date Recorded What is the highest level of school you have completed or the highest degree you have received? Associate degree: occupational, technical, or vocational program 07/18/2022 Sex and Gender Information Value Date Recorded Sex Assigned at Male 06/27/2021 1:28 PM CDT Legal Sex Male 8:58 PM PROGRAM PROPOSALS COORDINATOR Gender Identity Male 06/27/2021 1:28 PM CDT Sexual Orientation Straight 06/27/2021 1: 28 PM CDT Last Filed Vital Signs Vital Sign Reading Time Taken Comments Blood Pressure 130/67 09/23/2023 11:36 AM CDT Pulse 57 09/23/2023 11:36 AM CDT Temperature 36.2 ??C (97.2 ??F) 09/23/2023 11:36 AM C DT Respiratory Rate 15 01/31/2021 12:30 PM PROGRAM PROPOSALS COORDINATOR Oxygen Saturation 93% 01/31/2021 12:30 PM PROGRAM PROPOSALS COORDINATOR Inhaled Oxygen Concentration - - Weight 88.2 kg (194 lb 7.1 oz) 09/23/2023 11:36 AM CDT Height 169 cm (5' 6.54) 01/30/2021 11:48 AM PROGRAM PROPOSALS COORDINATOR Body Mass Index 30.88 01/30/2021 11:48 AM PROGRAM PROPOSALS COORDINATOR Plan of Treatment Health Maintenance Due Date [...] on patient's age to complete this topic IPV Vaccines Aged Out No longer eligi ble based on patient's age to complete this topic Medical Devices Implanted Type [employer] Device Identifier Shelf Expiration Date Model / Serial / Lot Clp ol Pl Lg - [id number] Implanted:Qty : 1 on 01/30/2021 by Lenny Gaspar M.D. at [facility] Hardware e.g. pins/screws/ rods [employer] [id number] 10/29/2025 [id number] / / [id number] Clp Hmol Pl Lg - [id number] Implanted:Qty : 1 on 01/30/2021 by Lenny Gaspar M.D. at [facility] Hardware e.g. pins/screws/ rods [employer] [id number] 09/23/2025 [id number] / / [id number] [facility]g - [id number] Implanted:Qty : 1 on 01/30/2021 by Lenny Gaspar M.D. at [facility] Hardware e.g. pins/screws/ rods [employer] [id number] 10/14/2025 [id number] / / [id number] Clp Hmol Plmr Lg - [id number] Implanted:Qty : 1 on 01/30/2021 by Lenny Gaspar M.D. at [facility] Hardware e.g. pins/screws/ rods [employer] [id number] 10/22/2025 [id number] / / [id number] Clp Hmol Plmr Md - [id number] Implanted:Qty : 1 on 01/30/2021 by Lenny Gaspar M.D. at [facility] Hardware e.g. pins/screws/ rods [employer] [id number] 05/27/2025 [id number] / / [id number] Clp Hmol Plmr Md - [id number] Implanted:Qty : 1 on 01/30/2021 by Lenny Gaspar M.D. at [facility] Hardware e.g. pins/screws/ rods [employer] [id number] 05/21/2025 [id number] / / [id number] Clp Hmol Plmr Md - [id number] Implanted:Qty : 1 on 01/30/2021 by Lenny Gaspar M.D. at [facility] Hardware e.g. pins/screws/ rods [employer] [id number] 09/23/2025 [id number] / / [id number] Clp Hmol Plmr Md - [id number] Implanted:Qty : 1 on 01/30/2021 by Lenny Gaspar M.D. at [facility] Hardware e.g. pins/screws/ rods [employer] [id number] 09/02/2025 [id number] / / [id number] Clp Hmol Plmr Md - [id number] Implanted:Qty : 1 on 01/30/2021 by Lenny Gaspar M.D. at [facility] Hardware e.g. pins/screws/ rods [employer] [id number] 09/23/2025 [id number] / / [id number] Clp Mark Valle Md - [id number] Implanted:Qty : 1 on 01/30/2021 by Lenny Gaspar M.D. at [facility] Hardware e.g. pins/screws/ rods [employer] [id number] 05/21/2025 [id number] / / [id number] Procedures Procedure Name Priority Date/Time Associated Diagnosis Comments HEMATOLOGY/ONCOLOGY - BLOOD, EXTERNAL LAB RESULTS Routine 04/10/2022 12:08 PM PROGRAM PROPOSALS COORDINATOR BASIC METABOLIC PANEL, S/P Routine 01/31/2021 12:36 AM PROGRAM PROPOSALS COORDINATOR from Last 3 Months or Most Recently Relevant to Health Maintenance Results * Hematology/Oncology - Blood, External Lab Results (04/10/2022 12:08 PM PROGRAM PROPOSALS COORDINATOR) EXT Hemoglobin 13.8 13.5 - 17.5 OTHER (SPECIFY IN MOTOR COACH OPERATOR) EXT Leukocytes 5.43 4.50 - 11.00 OTHER (SPECIFY IN MOTOR COACH OPERATOR) EXT Absolute Neutrophil Count 3.88 1.7 - 7.0 OTHER (SPEC CHRIS IN MOTOR COACH OPERATOR) EXT Platelet Count 210 140 - 440 OTHER (SPECIFY IN MOTOR COACH OPERATOR) EXT AST 21 12 - 35 OTHER (SPE CIFY IN MOTOR COACH OPERATOR) EXT ALT 20 4 - 50 OTHER (SPE CIFY IN MOTOR COACH OPERATOR) EXT Alkaline Phosphatase 63 40 - 150 OTHER (SPECIFY IN MOTOR COACH OPERATOR) EXT Bilirubin, Total 0.4 0.1 - 1.5 mg/dL OTHER (SPECIFY IN MOTOR COACH OPERATOR) EXT Albumin 4.3 3.3 - 5.0 g/dL OTHER (SPECIFY IN MOTOR COACH OPERATOR) EXT Sodium 145 135 - 149 mmol/L OTHER (SPECIFY IN MOTOR COACH OPERATOR) EXT Potassium 4.5 3.6 - 5.1 OTHER (SPECIFY IN MOTOR COACH OPERATOR) EXT Calcium, Total 9.8 8.4 - 10.6 OTHER (SPECIFY IN MOTOR COACH OPERATOR) EXT Creatinine 1.4 0.5 - 1.5 mg/dL OTHER (SPECIFY IN MOTOR COACH OPERATOR) EXT Total Protein 7.2 6.0 - 8.3 OTHER (SPECIFY IN MOTOR COACH OPERATOR) EXT Glucose, 180 Min 81 60 - 115 OTHER (SPECIFY IN MOTOR COACH OPERATOR) EXT Chloride 109 96 - 114 OTHER ( SPECIFY IN MOTOR COACH OPERATOR) EXT BUN (Blood Urea Nitrogen) 29 7 - 30 OTHER (SPECIF Y IN MOTOR COACH OPERATOR) Blood 04/10/2022 12:0 8 PM PROGRAM PROPOSALS COORDINATOR us Historical Provider LAB BLOOD NON ADD-ON Final R esult OTHER (SPECIFY IN MOTOR COACH OPERATOR) N/A * (ABNORMAL) Basic Metabolic Panel (01/31/2021 12:36 AM PROGRAM PROPOSALS COORDINATOR) Potassium, S 3.2(L) 3.6 - 5.2 mmol/L 01/31/2021 1:39 AM PROGRAM PROPOSALS COORDINATOR DTL Sodium, S 144 135 - 145 mmol/L 01/31/2021 1:39 AM PROGRAM PROPOSALS COORDINATOR DTL Chloride, S 102 98 - 107 mmol/L 01/31/2021 1:39 AM PROGRAM PROPOSALS COORDINATOR DTL Bicarbonate, S 25 22 - 29 mmol/L 01/31/2021 1:39 AM PROGRAM PROPOSALS COORDINATOR DTL Anion Gap 17(H) 7 - 15 01/31/2021 1:39 AM PROGRAM PROPOSALS COORDINATOR DTL BUN (Blood Urea Nitrogen), S 28(H) 8 - 24 mg/dL 01/31/2021 1:39 AM PROGRAM PROPOSALS COORDINATOR DTL Creatinine 1.55(H) 0.74 - 1.35 mg/dL 01/31/2021 1:39 AM PROGRAM PROPOSALS COORDINATOR DTL eGFR-Non Black/ 44(L) >=60 mL/min/BSA 01/31/2021 1:39 AM PROGRAM PROPOSALS COORDINATOR DTL Comment: ----ADDITIONAL INFORMATION---- Estimated GFR calculated using the 2009 CKD_EPI creatinine equation. eGFR-Black/Afri can Gibraltarian 51(L) >=60 mL/min/BSA 01/31/2021 1:39 AM PROGRAM PROPOSALS COORDINATOR DTL Comment: ----ADDITIONAL INFORMATION---- Estimated GFR calculated using the 2009 CKD_EPI creatinine equation. Calcium, Total, S 8.6(L) 8.8 - 10.2 mg/dL 01/31/2021 1:39 AM PROGRAM PROPOSALS COORDINATOR DTL Glucose, S 206(H) 70 - 140 mg/dL 01/31/2021 1:39 AM PROGRAM PROPOSALS COORDINATOR DTL Blood (Blood, Venous) 01/31/2021 12:36 AM PROGRAM PROPOSALS COORDINATOR 01/31/2021 1:25 AM PROGRAM PROPOSALS COORDINATOR Billie Wilkinson M.D., M.B.A. LAB BLOOD ADD-ON Manju l Result [facility] [address] [place] [address], [facility] DTL [facility] [place][note 2] [address] [place] [address] from Last 3 Months or Most Recently Relevant to Health Maintenance Insurance [facility] MEDIC[facility] Advance Directives For more information, please contact: [phone] Documents on File Type Date Recorded Patient Cable Maintainer Expl anation Advance Directives 01/19/2023 8:25 AM Anahy Luis HCPOA/ADVOCATE/AGENT/ VOCATIONAL NURSE LVN/SURROG ATE * Full Code (Latest Code Status on File) Date Activated Date Inactivated Comments 01/30/2021 9:38 PM 01/31/2021 4:28 PM Question Answer Comments Full Code: Discussed Healthcare Agents on File Name Relationship Healthcare Agent Relationship Communication Anahy Barton Spouse Health Care Agent Tricia Bronson Daughter First Alternate Health Care Agent Inocencia Luis Daughter Second Alternate Health Care Agent Care Teams Investment Executive Relationship Specialty Start Date End Date Elsewhere, Pcp PCP - General Family Medicine 01/30/21
--- OUTSIDE RECORDS SUMMARY | 2023-12-31 08:30 | XMS_ITS ---
Author Organization [facility] Address [address] [place] [address] Care Team Providers Care Senior Construction Estimator Name Role Phone Unavailable Unavailable Unavailable Surgery Details Not on file Complications Check Surgery Details section. Procedure Estimated Blood Loss Check Surgery Details section. Procedure Findings Check Surgery Details section. Procedure Specimens Taken Check Surgery Details section.
--- OUTSIDE RECORDS SUMMARY | 2023-12-31 08:30 | XMS_ITS | Encounter Summary ---
Author Organization [facility] Address [address] [place] [address] Care Team Providers Care Oncology Admin Name Role Phone Elsewhere, Pcp Primary Care Provider Unavailabl e Reason for Referral * Outpatient (Routine) - Closed Specialty Diagnoses / Procedures Referred By Contac t Referred To Contact Radiation Oncology Silvia Pendleton APRN, C.N.P., D.N.P. [address] [place] [phone] Phone: tel: fax: London George M.D. [address] [place] [address] Phone: tel: fax: Referral ID Status Reason Start Date Expiration Date Visits Re quested Visits Authorized [id number] Closed 01/13/2023 01/12/2026 1 1 Scheduling Instructions Please obtain recent PSA from [facility] and notes from Dr. Romero Reason for Visit * Outpatient (Routine) - Closed Specialty Diagnoses / Procedures Referred By Contac t Referred To Contact Radiation Oncology Silvia Pendleton APRN, C.N.P., D.N.PAlvarez [address] [place] [address] Phone: tel: fax: London George M.D. [address] [place] [address] Phone: tel: fax: Referral ID Status Reason Start Date Expiration Date Visits Re quested Visits Authorized [id number] Closed 01/13/2023 01/12/2026 1 1 Encounter Details Date Type Department Care Team (Latest Contact Info) Description 09/23/2023 11:12 AM CDT - 10/09/2023 10:20 AM CDT Hospital Encounter Department of Radiation Oncology in [place], [place] [address] [place] [phone] London George M.D. [address] [place] [address] Rising Prostate Specific Antigen Following Treatment For Malignant Cancer Of Prostate (Primary Dx) Social History Tobacco Use Types Packs/Day Years Used Date Smoking Tobacco: Former Cigarettes Q uit: 01/30/1979 Smokeless Tobacco: Never Alcohol Use Standard Drinks/Week Comments Not Currently 0 (1 standard drink = 0.6 oz pur e alcohol) [facility] Utilities Answer Date Recorded In the past 12 months has [facility] [employer], gas, oil, or water [employer] threatened to shut off services in your [...] How often do you attend chur or evangelical services? Patient declined 07/18/2022 Do you belong to any clubs o r organizations such as religion groups, unions, fraternal or athletic [...] Answer Date Recorded PHQ-2 Score 0 01/21/2021 [facility] - Occupational Stress Questionnaire Answer Date [...] your living situation today? I have a [facility] place to live 09/19/2023 Education Answer Date Recorded What is the highest level of school you have completed or the highest degree you have received? Associate degree: occupational, technical, or vocational program 07/18/2022 Sex and Gender Information Value Date Recorded Sex Assigned at Male 06/27/2021 1:28 PM CDT Legal Sex Male 8:58 PM EQUIPMENT STERILIZER Gender Identity Male 06/27/2021 1:28 PM CDT [...] Body Mass Index 30.88 01/30/2021 11:48 AM EQUIPMENT STERILIZER documented in this encounter Medications at Time [...] Of Prostate SUPERVISED BY: London George M.D. ([id number]) HISTORY OF PRESENT ILLNESS Mr. Cory Barton [...] sparing radical prostatectomy and bilateral pelvic lymphadenectomy. Fairview 4+5, pT3a N0 R0. Prep PSA 5.3 [...] Acinar adenocarcinoma Histologic Grade Grade Group and Fairview Score Grade Group 3 (Fairview Score 4+5=9) Minor Tertiary Pattern 5 (less [...] patient would like to pursue radiotherapy in [place]. A referral was placed. He left the arrangement of ADT and referral to Medical Oncology to Dr. George. 07/30/2021 - Biological/Targeted/Hormone Therapy 07/30/2021: Bicalutamide 50 mg daily for 3 weeks 08/05/2021: Leuprolide [address] [facility]. 10/29/2021: Leuprolide 22.[address] [facility]. 02/03/2022: Eligard [address] [facility]. 08/04/2022: Eligard 45 mg injection 02/03/2023: Eligard [...] under the care of Dr. White at [facility]. Abiraterone discontinued April 2022 and Apalutamide initiated [...] IIEF-15 Erectile Function:03/31 Orgasmic Function:0/10 Sexual Desire:2/10 [place] Satisfaction: 0/15 Overall satisfaction:2/10 Total Score:5/75 REVIEW [...] mg injection on August 05, [address] [facility]; plan for 24 months of therapy #4 [...] Suarez P.A.-C., M.S. 09/23/2023 11:56 AM CDT [facility] [address] [place] [address] Cosigned by London George M.D. at 10/09/2023 [...] 7 minutes caring for this patient in ihvf-uh-ricz and non gtcl-nq-yema time. Signed by: London George M.D. 10/09/23 10:19 AM CDT [facility] Radiation Therapy [facility] documented in this encounter Miscellaneous Notes * [...] Primary documented in this encounter Care Teams Oncology Admin Relationship Specialty Start Date End Date Elsewhere, Pcp PCP - General Family Medicine 01/30/21 documented as of this encounter
--- OUTSIDE RECORDS SUMMARY | 2023-12-31 08:30 | XMS_ITS | Clinical Summary ---
Author Organization [facility] Address [place], [place] [address] Care Team Providers Care Neurology Teacher Name Role Phone Gilberto Cho MD Primary Care Provider [phone] Allergies No known active allergies Medications Medication [...] Department Care Team Description 11/24/2023 Lab Requisition [facility] [phone] Antonette Moura MD from Last 3 Months [...] 0 AM CDT COLONOSCOPY 03/17/2017 11:19 AM PRODUCT DEVELOPMENT ENGINEER from Last 3 Months or Most Recently Relevant to Health Maintenance Results * LAB TRACKING EVENT (11/24/2023 11:20 AM CDT) Other (Other) Client Collect / Unknown 11/24/2023 11:20 AM CDT 11/24/2023 10:22 PM CDT Antonette Moura MD LAB BILL ONLY [facility] [address] [place] [address], * PATH TISSUE EXAM (11/24/2023 11:20 AM CDT) Case Report Pathology Report ?Case: [id number] ? Authorizing Provider: ??Antonette Moura MD ??Collected: ? 11/24/2023 1120 ? Ordering Location: ? [facility] ?Received: ?11/25/2023 0902 ? Pathologist: ? Darion Holland MD ? Specimen: ?Rectum ? 11/26/2023 1:41 PM CDT [facility] Final Diagnosis A) RECTUM, MILDLY ERYTHEMATOUS MUCOSA, BIOPSY: 1. Rectal mucosa without diagnostic abnormality (see comment) 2. Negative for proctitis 11/26/2023 1:41 PM CDT [facility] Comment This mucosa is likely within normal limits, although a minor degree of mechanical injury/irritati on cannot be entirely excluded histologically. There is certainly no evidence of an inflammatory proctitis. 11/26/2023 1:41 PM CDT [facility] Clinical Information Mr. Barton is a 73 y.o. with history of colon polyps undergoes surveillance colonoscopy. Biopsies obtained of an area of mildly erythematous mucosa in the rectum to assess for microscopic disease. 11/26/2023 1:41 PM CDT [facility] Gross Description A) Received in formalin are 5 felipe mucosal fragments averaging 2 mm in greatest dimension, which are entirely submitted in one cassette. It is labeled with the patient's name and designated rectum. RADHAMES Christie 11/25/2023 11:20 AM 11/26/2023 1:41 PM CDT [facility] Microscopic Description The final diagnosis is based on microscopic examination of appropriate sections of all specimens. 11/26/2023 1:41 PM CDT [facility] Additional Information Interpreted at [facility] - [address], [place] [address] 11/26/2023 1:41 PM CDT [facility] Other (Rectum) 11/24/2023 11 :20 AM CDT 11/25/2023 9:02 AM CDT Antonette Moura MD PATHOLOGY/[facility] [address] [place] [address], * COLONOSCOPY (03/17/2017 11:19 AM PRODUCT DEVELOPMENT ENGINEER) 03/17/2017 11:1 9 AM PRODUCT DEVELOPMENT ENGINEER Narrative Transcriptions Latrell Keith MD - [...] adequate candidate for conscious sedation. The [id number] was passed through the anus and advanced [...] reponse to care. [facility] and nursing notes for moderate sedation details. Total physician intraservice time was 18 minutes. Latrell Keith MD 03/17/2017 12:30:42 PM This report has been signed electronically. Note Initiated On: 03/17/2017 11:19 AM Procedure Code(s): --- Professional --- 65618, Colonoscopy, flexible; with removalof tumor(s), polyp(s), or other lesion(s) bysnare technique Diagnosis Code(s): --- Professional --- D12.0, Benign neoplasm of cecum D12.2, Benign neoplasm of ascending colon D12.5, Benign neoplasm of sigmoid colon Z86.010, Personal history of colonicpolyps K57.30, Diverticulosis of large intestine without perforation or abscess withoutbleeding CPT copyright 2016 [employer]. All rights reserved. The codes documented in this report are preliminary and upon youth career specialist reviewmay be revised to meet current compliance requirements. Scope In: 12:08:02 PM Scope Withdrawal Time 0 hours 14 minutes 9 seconds Scope Out: 12:24:50 PM Latrell Keith MD PROCEDURE ORD from Last 3 Months or Most Recently Relevant to Health Maintenance Care Teams Neurology Teacher Relationship Specialty Start Date End Date Gilberto Cho MD PCP - General Family Practice 03/17/17
--- OUTSIDE RECORDS SUMMARY | 2023-12-31 08:30 | XMS_ITS ---
Author Organization [facility] Address [address] [place] [address] Care Team Providers Care Digital Media Coordinator Name Role Phone Elsewhere, Pcp Primary Care [...] Treated Prescribed Fraction Dose Prescribed Total Dose [id number] 09/18/2021 44 7 of 7 200 cGy 1,400 cGy [id number] 09/09/2021 35 25 of 25 200 cGy 5,000 cGy Reference Point Last Treated On Elapsed Days Session Dose Total Dose [id number] 09/18/2021 44 200 cGy 6,400 cGy
--- OUTSIDE RECORDS SUMMARY | 2023-12-31 08:30 | XMS_ITS | Referral Summary ---
Author Organization [facility] Address [address] [place] [address] Care Team Providers Care Marketing And Communications Officer Name Role Phone Elsewhere, Pcp Primary Care Provider Unavailabl e Source Comments Patient records contain information from all sites at [facility]. For routine questions regarding patient records, call [phone] during business hours, M-F 8:00 AM - 5:00 PM Central Time. Record requests for emergency care only can be directed to [phone] at any time.[facility] Encounters Date Type Department Care Team Description 09/23/2023 11:12 AM CDT - 10/09/2023 10:20 AM CDT Hospital Encounter Department of Radiation Oncology in [place], [place] [address] [place] [phone] [place] George M.D. Rising Prostate Specific Antigen Following Treatment For Malignant Cancer Of Prostate (Primary Dx) from Last 3 Months Allergies No known [...] 5.3, Grade Group: 2) - Signed by Osaes Oswald M.D. on 09/06/2020 Pathologic stage from [...] drink = 0.6 oz pur e alcohol) [facility] Compassities Answer Date Recorded In the past 12 months has e hetras, gas, oil, or water [employer] threatened to shut off services in your [...] week 07/18/2022 How often do you attend [facility] or yazidi services? Patient declined 07/18/2022 Do you belong to any clubs o r organizations such as jehovah's witness groups, unions, fraternal or [...] Answer Date Recorded PHQ-2 Score 0 01/21/2021 [facility] - Occupational Stress Questionnaire Answer Date [...] living situation today? I have a [facility] place to live 09/19/2023 Education Answer Date Recorded What is the highest level of school you have completed or the highest degree you have received? Associate degree: occupational, technical, or vocational program 07/18/2022 Sex and Gender Information Value Date Recorded Sex Assigned at Male 06/27/2021 1:28 PM CDT Legal Sex Male 8:58 PM COMPUTER LAB PARA PROFESSIONAL Gender Identity Male 06/27/2021 1:28 PM CDT Sexual Orientation Straight 06/27/2021 1: 28 PM CDT Last Filed Vital Signs Vital Sign Reading Time Taken Comments Blood Pressure 130/67 09/23/2023 11:36 AM CDT Pulse 57 09/23/2023 11:36 AM CDT Temperature 36.2 ??C (97.2 ??F) 09/23/2023 11:36 AM C DT Respiratory Rate 15 01/31/2021 12:30 PM COMPUTER LAB PARA PROFESSIONAL Oxygen Saturation 93% 01/31/2021 12:30 PM COMPUTER LAB PARA PROFESSIONAL Inhaled Oxygen Concentration - - Weight 88.2 kg (194 lb 7.1 oz) 09/23/2023 11:36 AM CDT Height 169 cm (5' 6.54) 01/30/2021 11:48 AM COMPUTER LAB PARA PROFESSIONAL Body Mass Index 30.88 01/30/2021 11:48 AM COMPUTER LAB PARA PROFESSIONAL Plan of Treatment Not on file Medical Devices Implanted Type Area Biomedical Electronics Technician Device Identifier Shelf Expiration Date Model / Serial / Lot [facility] Plmr Lg - [id number] Implanted:Qty : 1 on 01/30/2021 by Lenny Gaspar M.D. at [facility] Hardware e.g. pins/screws/ rods [employer] [id number] 10/29/2025 [id number] / / [id number] [facility]g - [id number] Implanted:Qty : 1 on 01/30/2021 by Lenny Gaspar M.D. at [facility] Hardware e.g. pins/screws/ rods [employer] [id number] 09/23/2025 [id number] / / [id number] Clp Hmol Plmr Lg - [id number] Implanted:Qty : 1 on 01/30/2021 by Lenny Gaspar M.D. at [facility] Hardware e.g. pins/screws/ rods [employer] [id number] 10/14/2025 [id number] / / [id number] Clp Hmol Plmr Dat - [id number] Implanted:Qty : 1 on 01/30/2021 by Lenny Gaspar M.D. at [facility] Hardware e.g. pins/screws/ rods [employer] [id number] 10/22/2025 [id number] / / [id number] Clp Hmol Plmr Md - [id number] Implanted:Qty : 1 on 01/30/2021 by Lenny Gaspar M.D. at [facility] Hardware e.g. pins/screws/ rods [employer] [id number] 05/27/2025 [id number] / / [id number] Clp Hmol Plmr - [id number] Implanted:Qty : 1 on 01/30/2021 by Lenny Gaspar M.D. at [facility] Hardware e.g. pins/screws/ rods [employer] [id number] 05/21/2025 [id number] / / [id number] Clp Hmol Plmr - [id number] Implanted:Qty : 1 on 01/30/2021 by Lenny Gaspar M.D. at [facility] Hardware e.g. pins/screws/ rods [employer] [id number] 09/23/2025 [id number] / / [id number] Clp Hmol Plmr - [id number] Implanted:Qty : 1 on 01/30/2021 by Lenny Gaspar M.D. at [facility] Hardware e.g. pins/screws/ rods [employer] [id number] 09/02/2025 [id number] / / [id number] Clp Mark Tori Cheng [id number] Implanted:Qty : 1 on 01/30/2021 by Lenny Gaspar M.D. at [facility] Hardware e.g. pins/screws/ rods [employer] [id number] 09/23/2025 [id number] / / [id number] Clp Hmraina Tori Cheng [id number] Implanted:Qty : 1 on 01/30/2021 by Lenny Gaspar M.D. at [facility] Hardware e.g. pins/screws/ rods [employer] [id number] 05/21/2025 [id number] / / [id number] Procedures Procedure Name Priority Date/Time Associated Diagnosis Comments HEMATOLOGY/ONCOLOGY - BLOOD, EXTERNAL LAB RESULTS Routine 04/10/2022 12:08 PM COMPUTER LAB PARA PROFESSIONAL BASIC METABOLIC PANEL, S/P Routine 01/31/2021 12:36 AM COMPUTER LAB PARA PROFESSIONAL from Last 3 Months or Most Recently Relevant to Health Maintenance Results * Hematology/Oncology - Blood, External Lab Results (04/10/2022 12:08 PM COMPUTER LAB PARA PROFESSIONAL) EXT Hemoglobin 13.8 13.5 - 17.5 OTHER (SPECIFY IN PHOTOGRAPHIC SPOTTER) EXT Leukocytes 5.43 4.50 - 11.00 OTHER (SPECIFY IN PHOTOGRAPHIC SPOTTER) EXT Absolute Neutrophil Count 3.88 1.7 - 7.0 OTHER (SPEC CHRIS IN PHOTOGRAPHIC SPOTTER) EXT Platelet Count 210 140 - 440 OTHER (SPECIFY IN PHOTOGRAPHIC SPOTTER) EXT AST 21 12 - 35 OTHER (SPE CIFY IN PHOTOGRAPHIC SPOTTER) EXT ALT 20 4 - 50 OTHER (SPE CIFY IN PHOTOGRAPHIC SPOTTER) EXT Alkaline Phosphatase 63 40 - 150 OTHER (SPECIFY IN PHOTOGRAPHIC SPOTTER) EXT Bilirubin, Total 0.4 0.1 - 1.5 mg/dL OTHER (SPECIFY IN PHOTOGRAPHIC SPOTTER) EXT Albumin 4.3 3.3 - 5.0 g/dL OTHER (SPECIFY IN PHOTOGRAPHIC SPOTTER) EXT Sodium 145 135 - 149 mmol/L OTHER (SPECIFY IN PHOTOGRAPHIC SPOTTER) EXT Potassium 4.5 3.6 - 5.1 OTHER (SPECIFY IN PHOTOGRAPHIC SPOTTER) EXT Calcium, Total 9.8 8.4 - 10.6 OTHER (SPECIFY IN PHOTOGRAPHIC SPOTTER) EXT Creatinine 1.4 0.5 - 1.5 mg/dL OTHER (SPECIFY IN PHOTOGRAPHIC SPOTTER) EXT Total Protein 7.2 6.0 - 8.3 OTHER (SPECIFY IN PHOTOGRAPHIC SPOTTER) EXT Glucose, 180 Min 81 60 - 115 OTHER (SPECIFY IN PHOTOGRAPHIC SPOTTER) EXT Chloride 109 96 - 114 OTHER ( SPECIFY IN PHOTOGRAPHIC SPOTTER) EXT BUN (Blood Urea Nitrogen) 29 7 - 30 OTHER (SPECIF Y IN PHOTOGRAPHIC SPOTTER) Blood 04/10/2022 12:0 8 PM COMPUTER LAB PARA PROFESSIONAL us Historical Provider LAB BLOOD NON ADD-ON Final R esult OTHER (SPECIFY IN PHOTOGRAPHIC SPOTTER) N/A * (ABNORMAL) Basic Metabolic Panel (01/31/2021 12:36 AM COMPUTER LAB PARA PROFESSIONAL) Potassium, S 3.2(L) 3.6 - 5.2 mmol/L 01/31/2021 1:39 AM COMPUTER LAB PARA PROFESSIONAL DTL Sodium, S 144 135 - 145 mmol/L 01/31/2021 1:39 AM COMPUTER LAB PARA PROFESSIONAL DTL Chloride, S 102 98 - 107 mmol/L 01/31/2021 1:39 AM COMPUTER LAB PARA PROFESSIONAL DTL Bicarbonate, S 25 22 - 29 mmol/L 01/31/2021 1:39 AM COMPUTER LAB PARA PROFESSIONAL DTL Anion Gap 17(H) 7 - 15 01/31/2021 1:39 AM COMPUTER LAB PARA PROFESSIONAL DTL BUN (Blood Urea Nitrogen), S 28(H) 8 - 24 mg/dL 01/31/2021 1:39 AM COMPUTER LAB PARA PROFESSIONAL DTL Creatinine 1.55(H) 0.74 - 1.35 mg/dL 01/31/2021 1:39 AM COMPUTER LAB PARA PROFESSIONAL DTL eGFR-Non Black/ 44(L) >=60 mL/min/BSA 01/31/2021 1:39 AM COMPUTER LAB PARA PROFESSIONAL DTL Comment: ----ADDITIONAL INFORMATION---- Estimated GFR calculated using the 2009 CKD_EPI creatinine equation. eGFR-Black/Afri can Eritrean 51(L) >=60 mL/min/BSA 01/31/2021 1:39 AM COMPUTER LAB PARA PROFESSIONAL DTL Comment: ----ADDITIONAL INFORMATION---- Estimated GFR calculated using the 2009 CKD_EPI creatinine equation. Calcium, Total, S 8.6(L) 8.8 - 10.2 mg/dL 01/31/2021 1:39 AM COMPUTER LAB PARA PROFESSIONAL DTL Glucose, S 206(H) 70 - 140 mg/dL 01/31/2021 1:39 AM COMPUTER LAB PARA PROFESSIONAL DTL Blood (Blood, Venous) 01/31/2021 12:36 AM COMPUTER LAB PARA PROFESSIONAL 01/31/2021 1:25 AM COMPUTER LAB PARA PROFESSIONAL Billie Wilkinson M.D., M.B.A. LAB BLOOD ADD-ON Manju l Result [facility] [place] [address] [place] [address], [place] DTL [facility] [address] [place] [address] from Last 3 Months or Most Recently Relevant to Health Maintenance Insurance [facility] MEDICARE Advance Directives For more information, please contact: [phone] Documents on File Type Date Recorded Patient Picking Tech Expl anation Advance Directives 01/19/2023 8:25 AM Anahy GalindoHortensia Sellers Dukes HCPOA/ADVOCATE/AGENT/ DRYWALLER/SURROG ATE * Full Code (Latest Code Status on File) Date Activated Date Inactivated Comments 01/30/2021 9:38 PM 01/31/2021 4:28 PM Question Answer Comments Full Code: Discussed Healthcare Agents on File Name Relationship Healthcare Agent Relationship Communication Anahy Barton Spouse Health Care Agent Tricia Quezadaon Daughter First Alternate Health Care Agent Inocencia Luis Daughter Second Alternate Health Care Agent Care Teams Marketing And Communications Officer Relationship Specialty Start Date End Date Elsewhere, Pcp PCP - General Family Medicine 01/30/21
== END 2023-12-30 07:51 | disposition home or self-care (01) ==
LOC: NFLDREF 12-31 08:28
PROVIDERS: PCP Family Medicine; Referring Provider Family Medicine; Visit Provider Family Medicine
DX: E78.00 Pure hypercholesterolemia, unspecified (principal); E11.65 Type 2 diabetes mellitus with hyperglycemia; Z79.84 Long term (current) use of oral hypoglycemic drugs
CPT/HCPCS: 80061; 82043; 82570

== ENCOUNTER 2024-03-08 14:00 | Outpatient (RCR) | payer MEDICARE, BC, SELFPAY ==
[2023-12-01 09:41] LABS: Alanine Aminotransferase* 13 U/L (4-50); Albumin* 4.2 g/dL (3.3-5.0); Alkaline Phosphatase* 68 U/L (40-150); Anion Gap 7 mEq/L (7-15); Aspartate Amino Transferase* 20 U/L (12-35); Basophils Percent Auto 1.1 % (0.0-3.0); Bilirubin Total* 0.3 mg/dL (0.1-1.5); Blood Urea Nitrogen* 26 mg/dL (7-30); Carbon Dioxide* 26 mmol/L (20-32); Chloride* 110 mmol/L (96-114); Creatinine* 1.2 mg/dL (0.5-1.5); Estimated Glomerular Filt Rate 63 ml/min; Glucose* 147 mg/dL (60-115); Hematocrit 42.4 % (37.0-53.0); Hemoglobin* 13.9 gm/dL (13.5-17.5); Immature Granulocytes Pct Auto 0.3 %; Lymphocytes Percent Auto 17.4 % (20-44); Mean Corpuscular HGB Conc 33 gm/dL (32-36); Mean Corpuscular Hemoglobin 31 pg (26-34); Mean Corpuscular Volume 95 fL (80-100); Monocytes Percent Auto 13.2 % (0.0-11.0); Platelet Count* 166 K/uL (140-440); Potassium* 4.8 mmol/L (3.6-5.1); RDW Coefficient of Variation % 12.4 % (11.5-15.5); Red Blood Count 4.46 m/uL (4.30-5.90); Sodium* 143 mmol/L (135-149); Total Protein* 6.7 g/dL (6.0-8.3); White Blood Count* 3.56 K/uL (4.50-11.00)
[2023-12-01 09:42] LABS: Calcium* 9.7 mg/dL (8.4-10.6)
[2023-12-01 09:44] LABS: Slide Review Reflex No
[2023-12-01 10:13] LABS: PSA Diagnostic* < 0.06 ng/mL (0.10-4.00)
--- NOTE | 2024-03-25 10:23 | ONC.NURNOTE ---
Called patient to see if he wanted to reschedule the PSA that he was due for in March. At this time he does not, he was in the hospital at [facility] over the holidays and wants to complete this care. He will think about whether he would like to come in prior to May to have another PSA done as recommended.
== END 2024-05-29 23:59 | disposition home or self-care (01) ==
LOC: CCIC 14:00
PROVIDERS: PCP Family Medicine; Referring Provider Family Medicine; Visit Provider Internal Medicine Hematology & Oncology
DX: C61 Malignant neoplasm of prostate (principal)
CPT/HCPCS: 36415; 80053; 84153; 85025; 99214; G0463

== ENCOUNTER 2024-06-30 21:13 | Emergency (ER) | payer MEDICARE, BC, SELFPAY ==
--- OUTSIDE RECORDS SUMMARY | 2024-06-30 21:15 | XMS_ITS | Encounter Summary ---
Author Organization [facility] Address [address] [place] [address] Care Team Providers Care Orchestra Teacher Name Role Phone Misa Pringle M.D. Primary Care Provider [phone]- [phone] Encounter Details Date Type Department Care Team (Late st Contact Info) Description 06/27/2024 Results Follow-Up Department of Family Medicine, [facility], in [address] [phone] Char Schaeffer M.D. [address] [place] [phone] Creatinine with Estimated GFR, Potassium, Sodium Social History Tobacco Use Types Packs/Day Years Used Date Smoking Tobacco: Former Cigarettes 0.8 13.9 0 03/02/1965 - 01/30/1979 Smokeless Tobacco: Never Alcohol Use Standard Drinks/Week Comments Not Currently 0 (1 standard drink = 0.6 oz pur e alcohol) [facility] Utilities Answer Date Recorded In the past 12 months has th e electric, gas, oil, or water company threatened to shut off services in your home? No 02/23/2024 Humiliation, Afraid, Rape, and Kick questionnair e Answer Date Recorded Within the last year, have y ou been afraid of your partner or ex-partner? No 02/23/2024 Within the last year, have y ou been humiliated or emotionally abused in other ways by your partner or ex-partner? No Within the last year, have y ou been kicked, hit, slapped, or otherwise physically hurt by your partner or ex-partner? No 02/23/2024 Within the last year, have y ou been raped or forced to have any kind of sexual activity by your partner or ex-partner? No 02/23/2024 Social Connection and Isolat ion Panel [NHANES] Answer Date Recorded In a typical week, how many times do you talk on the phone with family, friends, or neighbors? Once a week 07/18/2022 How often do you get togethe r with friends or relatives? Once a week 07/18/2022 How often do you attend chur or methodist services? Patient declined 07/18/2022 Do you belong to any clubs o r organizations such as moravian groups, unions, fraternal or athletic [...] a drink containing alc ohol? Never 07/18/2022 Average Number of Drinks Not on file 023 Frequency of Binge Drinking Not on file 06/30 Overall Financial Resource Strain (CARDIA) Answe r Date Recorded How hard is it for you to pa y for the very basics like food, housing, medical care, and heating? Not hard at all 07/18/2022 PHQ-2 Answer Date Recorded PHQ-2 Score 0 04/18/2024 [facility] [place] of Occupat ional Health - Occupational Stress [...] the money to buy more. Never true 02/23/20 24 Within the past 12 months, t he food you bought just didn't last and you didn't have money to get more. Never true 02/23/2024 PRAPARE - Transportation Answer Date Re corded In the past 12 months, has l ack of transportation kept you from medical appointments or from getting medications? No 01/31 In the past 12 months, has l ack of transportation kept you from meetings, work, or from getting things needed for daily living? No 02/23/2024 Nutrition Answer Date Recorded On average, how [...] your living situation today? I have a [facility] place to live 02/23/2024 Education Answer Date Recorded What is the highest level of school you have completed or the highest degree you have received? 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 [address] [place] [phone] documented as of this encounter Visit Diagnoses Not on filedocumented in this encounter Care Teams Orchestra Teacher Relationship Specialty Start Date End Date Misa Pringle M.D. [address] [place] [phone] PCP - General Family Medicine 02/25/24 [facility] Commercial Loan Assistant 04/18/24 [facility] 04/18/24 documented as of this encounter
--- OUTSIDE RECORDS SUMMARY | 2024-06-30 21:15 | XMS_ITS | Encounter Summary ---
Author Organization [facility] Address [address] [place] [address] Care Team Providers Care Clinical Quality Assurance Associate Name Role Phone Misa Pringle M.D. Primary Care Provider +1- [phone] Encounter Details Date Type Department Care Team (Latest Contact Info) Description 02/22/2024 Intake [facility] Social History Tobacco Use Types Packs/Day Years Used Date Smoking Tobacco: Former Cigarettes Q uit: 01/30/1979 Smokeless Tobacco: Never Alcohol Use Standard Drinks/Week Comments Not Currently 0 (1 standard drink = 0.6 oz pur e alcohol) [facility] Utilities Answer Date Recorded In the past 12 months has [facility] [employer], gas, oil, or water [employer] threatened to shut off services in your [...] How often do you attend chur or buddhism services? Patient declined 07/18/2022 Do you belong to any clubs o r organizations such as presybeterian groups, unions, fraternal or athletic [...] Answer Date Recorded PHQ-2 Score 0 01/21/2021 [facility] Occupat ional Health - Occupational [...] your living situation today? I have a [facility] place to live 02/23/2024 Education Answer Date Recorded What is the highest level of school you have completed or the highest degree you have received? 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 [address] [place] [phone] documented as of this encounter Visit Diagnoses Not on filedocumented in this encounter Additional Health Concerns Infection Onset Date Last Indicated Resolved Time COVID19 Pending 02/22/2024 02/22/2024 02/22/2024 1 2:42 PM SHOWROOM SALES ASSISTANT documented as of this encounter Care Teams Clinical Quality Assurance Associate Relationship Specialty Start Date End Date Misa Pringle M.D. [id number] [phone] PCP - General Family Medicine 02/25/24 [facility] Mid Level Game Designer 04/18/24 [facility] 04/18/24 documented as of this encounter
--- OUTSIDE RECORDS SUMMARY | 2024-06-30 21:16 | XMS_ITS | Encounter Summary ---
Author Organization [facility] Address [address] [place] [address] Care Team Providers Care Pararescue Manager Name Role Phone Misa rPingle M.D. Primary Care Provider +1- [phone] Reason for Visit * Reason Comments Nurse Visit BP check with home rusty ring * Outpatient (Routine) - Closed Specialty Diagnoses / Procedures Referred By Bhakti ingram Referred To Contact Char Ventura M.D. [address] [place] [phone] Phone: tel: fax: [facility] Region Referral ID Status Reason Start Date Expiration Date Visits Re quested Visits Authorized [id number] Closed 06/07/2024 12/07/2025 1 1 Encounter Details Date Type Department Care Team (Late st Contact Info) Description 06/23/2024 1:00 PM CDT Nurse Only Department of Family Medicine, [facility], in [address] [phone] Char Ventura M.D. [address] [place] [phone] Angie Grey, L.P.N. Nurse Visit (BP check with home device) Discharge Disposition: Home or Self Care Social History Tobacco Use Types Packs/Day Years Used Date Smoking Tobacco: Former Cigarettes 0.8 13.9 0 03/02/1965 - 01/30/1979 Smokeless Tobacco: Never Alcohol Use Standard Drinks/Week Comments Not Currently 0 (1 standard drink = 0.6 oz pur e alcohol) [facility] Utilities Answer Date Recorded In the past 12 months has e [employer], gas, oil, or water [employer] threatened to shut off services in your [...] week 07/18/2022 How often do you attend [facility] or congregational services? Patient declined 07/18/2022 Do you belong to any clubs o r organizations such as buddhist groups, unions, fraternal or athletic [...] Answer Date Recorded PHQ-2 Score 0 04/18/2024 [facility] - Occupational Stress Questionnaire Answer [...] money to buy more. Never true 02/23/20 Within the past 12 months, t he [...] your living situation today? I have a [facility] place to live 02/23/2024 Education Answer Date Recorded What is the highest level of school you have completed or the highest degree you have received? 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 - 06/23/2024 1:00 PM CDT Cory brought their [employer] home blood pressure monitoring device to the visit today for accuracy test. The patient's home device uses a wrist cuff location. The left arm was used for measurement. The results were there was at least one difference of greater than 5 mmHg but less than or equal to10 mmHg and the comparison was repeated. The result of the second comparison was that the difference between all comparisons was 5 mmHg or less, the comparison is acceptable and the device is considered accurate. The manual blood pressure readings taken during the test were as follows: BP Readings from Last 1 Encounters: 06/23/24 1327 (!) 163/91 06/23/24 1325 (!) 170/91 First set of readings- Patient 178/95 Manual 172/91 Patient 169/96 Manual 161/88 Second set of readings- Patient 160/91 Manual 161/89 Patient 167/94 Manual 165/89 documented in this encounter Miscellaneous Notes * Addendum Note - Char Ventura M.D. - 06/23/2024 1:00 PM CDT Addended by: CHAR VENTURA on: 06/27/2024 07:37 PM Modules accepted: Orders documented in this encounter Plan of Treatment Upcoming Encounters Date Type Department Care Team (Late st Contact Info) Description 07/07/2024 2:30 PM CDT Office Visit Division of Nephrology and Hypertension in [place], [place] [address] [place] [address] David Ross M.D. [address] [place] [phone] documented as of this encounter Visit Diagnoses Diagnosis Diabetes Mellitus Type 2 (HCC)- Primary documented in this encounter Care Teams Pararescue Manager Relationship Specialty Start Date End Date Mias Pringle M.D. [address] [place] [phone] PCP - General Family Medicine 02/25/24 [facility] Computational Biologist 04/18/24 [facility] 04/18/24 documented as of this encounter
--- OUTSIDE RECORDS SUMMARY | 2024-06-30 21:16 | XMS_ITS | Encounter Summary ---
Author Organization [facility] Address [address] [place] [address] Care Team Providers Care Supervisor Audit Clerks Name Role Phone Misa Pringle M.D. Primary Care Provider [phone] Encounter Details Date Type Department Care Team (Late st Contact Info) Description 05/12/2024 Orders Only Division of Nephrology and Hypertension in [place], [place] [address] [place] [phone] David Ross M.D. [address] [place] [phone] Social History Tobacco Use Types Packs/Day Years Used Date Smoking Tobacco: Former Cigarettes 0.8 13.9 0 03/02/1965 - 01/30/1979 Smokeless Tobacco: Never Alcohol Use Standard Drinks/Week Comments Not Currently 0 (1 standard drink = 0.6 oz pur e alcohol) [facility] Utilities Answer Date Recorded In the past 12 months has e electric, gas, oil, or water company [...] 07/18/2022 How often do you attend [facility] or rastafarian services? Patient declined 07/18/2022 Do you belong to any clubs o r organizations such as baptism groups, unions, fraternal or athletic [...] Answer Date Recorded PHQ-2 Score 0 04/18/2024 [facility] - Occupational [...] living situation today? I have a [facility] place to live 02/23/2024 Education Answer Date Recorded What is the highest level of school you have completed or the highest degree you have received? Associate degree: occupational, technical, or vocational program 07/18/2022 Sex and Gender Information Value Date Recorded Sex Assigned at Male 06/27/2021 1:28 PM CDT Legal Sex Male 8:58 PM [employer] Gender Identity Male 06/27/2021 1:28 PM CDT Sexual Orientation Straight 06/27/2021 1: 28 PM CDT documented as of this encounter Plan of Treatment Upcoming Encounters Date Type Department Care Team (Late st Contact Info) Description 07/07/2024 2:30 PM CDT Office Visit Division of Nephrology and Hypertension in [place], [place] [address] [place] [phone] David Ross M.D. [address] [place] [phone] documented as of this encounter Visit Diagnoses Not on filedocumented in this encounter Care Teams Supervisor Audit Clerks Relationship Specialty Start Date End Date Misa Pringle M.D. [address] [place] [phone] PCP - General Family Medicine 02/25/24 [facility] Asbestos Shingle Inspector 04/18/24 [facility] 04/18/24 documented as of this encounter
--- OUTSIDE RECORDS SUMMARY | 2024-06-30 21:16 | XMS_ITS | Clinical Summary ---
Author Organization [facility] Address [address] [place] [address] Care Team Providers Care Manager Of Finance Name Role Phone Misa Pringle M.D. Primary Care Provider [phone]- [phone] Source Comments Patient records contain information from all sites at [facility]. For routine questions regarding patient records, call [phone] during business hours, M-F 8:00 AM - 5:00 PM Central Time. Record requests for emergency care only can be directed to [phone] at any time.[facility] Allergies No known active allergies Medications * This document contains information received from the source organization and may not represent a complete record from that organization. blood sugar diagnostic (Accu-Chek Guide test strips) strips 2 times daily. 05/23/19 21 Active cholecalcifero l, vitamin D3, 25 mcg (1,000 Unit) tablet Daily Active lancets 2 times daily. 05/23/19 21 Active acetaminophen (TYLENOL) 500 mg tablet Take 2 tablets (1,000 mg total) by mouth every 6 (six) hours as needed for pain. 02/01/20 21 Active rosuvastatin (Crestor) 10 mg tablet Take 1 tablet by mouth daily. 01/14/20 24 Active metFORMIN XR (Glucophage-XR ) 500 mg 24 hr tablet Take 1 tablet by mouth daily. 01/11/20 [address] aspirin [address] tablet Take 81 mg by mouth daily. Active latanoprost (Xalatan) 0.005 % ophthalmic solution Administer 1 drop into the right eye every evening. 02/02/20 24 Active metoprolol tartrate (Lopressor) 50 mg tablet Take 1 tablet (50 mg total) by mouth 2 (two) times a day. Hold until seen by PCP 02/25/20 24 Active amLODIPine (Norvasc) 10 mg tablet Take 1 tablet (10 mg total) by mouth daily. 90 tablet 3 03/09/19 25 Active furosemide (Lasix) 40 mg tablet Take 1 tablet (40 mg total) by mouth daily. 90 tablet 3 06/08/19 25 Active lisinopriL 40 mg tablet Take 1 tablet (40 mg total) by mouth daily. 90 tablet 3 06/28/19 25 026 Active prednisoLONE acetate (Pred Forte) 1 % ophthalmic suspension Administer 1 drop into the right ear daily. 02/16/20 24 025 Discontinued lisinopriL 20 mg tablet Take 1 tablet (20 mg total) by mouth daily. 90 tablet 3 04/04/19 25 025 Discontinued(Re order) furosemide (Lasix) 20 mg tablet Take 1 tablet (20 mg total) by mouth daily. 90 tablet 3 05/13/19 25 025 Discontinued(Re order) Active Problems Problem Noted Date Diagnosed Date Diabetes Mellitus Type 2 03/27/2024 Personal History Of Malignant Neoplasm Of Prosta te 03/09/2024 Overview (03/09/2024): Diagnosed 2019. 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 on 09/06/2020 Pathologic stage from 01/30/2021:Stage IIIC(pT3a, pN0, cM0, PSA: 5.3, Grade Group: 5) - Unsigned Polyp Colon Adenomatous 03/15/201209/2024 Encounters Date Type Department Care Team Description 06/27/2024 Results Follow-Up Department of Family Medicine, [facility], [address] [address] Char Schaeffer M.D. Creatinine with Estimated GFR, Potassium, Sodium 06/23/2024 1:00 PM CDT Nurse Only Department of Family Medicine, [facility], [address] [address] Char Schaeffer M.D. Linde, Amy L, L.P.NAlvarez Nurse Visit (BP check with home device) Discharge Disposition: Home or Self Care 06/23/2024 12:30 PM CDT - 06/23/2024 11:59 PM CDT Hospital Encounter Department of Laboratory Medicine in [address] [address] Char Schaeffer M.D. Hypertensive Chronic Kidney Disease With Stage 1 Through Stage 4 Chronic Kidney Disease, Or Unspecified Chronic Kidney Disease Discharge Disposition: Home or Self Care 06/15/2024 Clinical Communication Department of [facility], [facility], [address] [address] Misa Pringle M.D. [facility] - Outside Materials 06/14/2024 Clinical Communication Department of [facility], [facility], [address] [address] Misa Pringle M.D. Med list 06/07/2024 8:40 AM CDT Office Visit Department of Family Medicine, [facility], in [address] [address] Char Schaeffer M.D. Preoperative Exam (Primary Dx); Hypertensive Chronic Kidney Disease With Stage 1 Through Stage 4 Chronic Kidney Disease, Or Unspecified Chronic Kidney Disease; Diabetes Mellitus Type 2 Without Complication (HCC); Polyp Colon Adenomatous Personal History Discharge Disposition: Home or Self Care 06/07/2024 Clinical Communication Department of Family Medicine, [facility], in [address] [address] Char Schaeffer M.D. 05/16/2024 11:00 AM CDT - 05/16/2024 11:59 PM CDT Hospital Encounter Department of Laboratory Medicine in [address] [address] David Ross M.D. Chronic Kidney Disease (CKD), Stage 3a Glomerular Filtration Rate (GFR) 45 To 59 (HCC); Hypertensive Chronic Kidney Disease With Stage 1 Through Stage 4 Chronic Kidney Disease, Or Unspecified Chronic Kidney Disease Discharge Disposition: Home or Self Care 05/16/2024 Results Follow-Up Division of Nephrology and Hypertension in [place], [place] [address] [place] [address] David Ross M.D. Renal Function Panel, Uric Acid 05/12/2024 Orders Only Division of Nephrology and Hypertension in [place], [place] [address] [place] [address] David Ross M.D. 04/25/2024 Results Follow-Up Department of Family Medicine, [facility], in [address] [address] Misa Pringle M.D. US Aorta AAA Screening 04/18/2024 1:00 PM CUFF STITCHER Office Visit Department of Family Medicine, [facility], in [address] [address] Misa Pringle M.D. Erickson, Brook C, R.N. Annual Medicare Examination Return (Primary Dx) Discharge Disposition: Home or Self Care 04/18/2024 9:00 AM CUFF STITCHER - 04/18/2024 11:59 PM CUFF STITCHER Hospital Encounter Department of Radiology in [address] [phone] Msia Pringle M.D. Screening Abdominal Aortic Aneurysm Discharge Disposition: Home or Self Care 04/18/2024 Clinical Communication Department of [facility], [facility], in [address] [address] Misa Pringle M.D. Communication (Follow up) 04/04/2024 Orders Only Division of Nephrology and Hypertension in [place] [address] [place] [address] David Ross M.D. Chronic Kidney Disease (CKD), Stage 3a Glomerular Filtration Rate (GFR) 45 To 59 (HCC) (Primary Dx); Hypertensive Chronic Kidney Disease With Stage 1 Through Stage 4 Chronic Kidney Disease, Or Unspecified Chronic Kidney Disease from Last 3 Months Immunizations Immunization Administration Dates Next Due HZV (ZOSTAVAX) 11/02/2013 Influenza high dose QV(65 ye ars or older) (PF) 01/01/2023,12/13/2021,11/11/2020,2019 PCV13 02/14/2016 PCV20 01/01/2023 PPSV23 07/21/2017 RSV: respiratory syncytial v irus (AREXVY) recombinant vaccine 01/25/2024 RZV (SHINGRIX) 03/07/2019,08/04/2018 Tdap 02/17/2017 influenza trivalent high dos e (HD)(PF) 10/16/2023,12/09/2018,12/29/2017,2016 Family History Medical History Relation Name Comments Colon cancer Father nhsr Prostate cancer Maternal Grandfather rk Diabetes Paternal Grandfather Diabetes Paternal Grandmother Relation Name Status Comments Father nhsr Alive Maternal Grandfather rk Alive Paternal Grandfather Paternal Grandmother Social History Tobacco Use Types Packs/Day Years Used Date Smoking Tobacco: Former Cigarettes 0.8 13.9 0 03/02/1965 - 01/30/1979 Smokeless Tobacco: Never Tobacco Cessation:Counseling Given: Not Answered Alcohol Use Standard Drinks/Week Comments Not Currently 0 (1 standard drink = 0.6 oz pur e alcohol) [facility] Utilities Answer Date Recorded In the past 12 months has th e [employer], gas, oil, or water [employer] threatened to shut off services in your [...] How often do you attend chur or hinduism services? Patient declined 07/18/2022 Do you belong to any clubs o r organizations such as yazidi groups, unions, fraternal or athletic [...] Answer Date Recorded PHQ-2 Score 0 04/18/2024 [facility] - Occupational Stress Questionnaire Answer Date Recorded [...] your living situation today? I have a [facility] place to live 02/23/2024 Education Answer Date Recorded What is the highest level of school you have completed or the highest degree you have received? Associate degree: occupational, technical, or vocational program 07/18/2022 Sex and Gender Information Value Date Recorded Sex Assigned at Male 06/27/2021 1:28 PM CDT Legal Sex Male 8:58 PM CUFF STITCHER Gender Identity Male 06/27/2021 1:28 PM CDT Sexual Orientation Straight 06/27/2021 1: 28 PM CDT Last Filed Vital Signs Vital Sign Reading Time Taken Comments Blood Pressure 163/91 06/23/2024 1:27 PM CDT Pulse 53 06/07/2024 8:42 AM CDT Temperature 36.6 C (97.9 F) 06/07/2024 8:37 AM CDT Respiratory Rate 22 04/18/2024 9:36 AM CUFF STITCHER Oxygen Saturation 98% 06/07/2024 8:37 AM CDT Inhaled Oxygen Concentration - - Weight 90.8 kg (200 lb 2.8 oz) 06/07/2024 8:37 A M CDT Height 174 cm (5' 8.5) 06/07/2024 8:37 AM CDT Body Mass Index 29.99 06/07/2024 8:37 AM CDT Plan of Treatment Upcoming Encounters Date Type Department Care Team (Late st Contact Info) Description 07/07/2024 2:30 PM CDT Office Visit Division of Nephrology and Hypertension in [place], [place] [address] [place] [address] David Ross M.D. [address] [place] [address] Health Maintenance Due Date Last Done Comments CT Colonography 1950 Cologuard 1950 Diabetic Office Visit with Foot Exam 1950 Colonoscopy 03/17/2022 03/17/2017 Colorectal Cancer Surveillance 03/17/2022 COVID-19 Vaccine ( season) 2023 03/09/2022, 11/28/2021, 07/09/2021, Additional history exists Hemoglobin A1C 06/20/2024 03/22/2024, 07/30/2023 Office Visit for Blood Pressure Check / Re-check 09/22/2024 06/23/2024 Dilated Eye Exam 02/14/2025 02/15/2024 (Per formed elsewhere) Urine Albumin 03/22/2025 03/22/2024, 03/08/2024 Visit: Medicare Annual Wellness 04/19/2025 04/18/2024 Visit: Chronic Disease, age 18+ 06/07/2025 06/07/2024, 06/07/2024 Creatinine Level (Kidney Function Test) 06/23/2025 06/23/2024, 06/14/2024, 05/16/2024, Additional history exists Potassium Level 06/23/2025 06/23/2024, 05/31, 05/16/2024, Additional history exists Sodium Level 06/23/2025 06/23/2024, 05/31, 05/16/2024, Additional history exists DTaP,Tdap,and Td Vaccines (2 - Td or Tdap) 02/17/2027 02/17/2017 Lipid (Cholesterol) Screening 07/29/2028 07/30/2023 Zoster Vaccines Completed 03/07/2019, 06/0 06/2018, 11/02/2013 Pneumococcal vaccine (50+ years) Completed 01/01/2023, 07/21/2017, 02/14/2016 Influenza Vaccine Completed 10/16/2023, , 12/13/2021, Additional history exists RSV vaccine - (32-36 weeks) or 60+ years Completed 01/25/2024 Abdominal Aortic Aneurysm (AAA) Screen Completed 04/18/2024 Depression Screening (Annual PHQ-2) Completed 04/18/2024, 04/18/2024 Fall Risk Screen (Annual) Completed 04/18/2024 HPV Vaccines Aged Out No longer eligi ble based on patient's age to complete this topic IPV Vaccines Aged Out No longer eligi ble based on patient's age to complete this topic Medical Devices Implanted Type Area Associate School Psychologist Device Identifier Shelf Expiration Date Model / Serial / Lot Clp Hmol Plmr Lg - [id number] Implanted:Qty : 1 on 01/30/2021 by Lenny Gaspar M.D. at [facility] Hardware e.g. pins/screws/ rods Bo[employer] [id number] 10/29/2025 [id number] / / [id number] Clp Hmol Plmr Lg - [id number] Implanted:Qty : 1 on 01/30/2021 by Lenny Gaspar M.D. at [facility] Hardware e.g. pins/screws/ rods [employer] [id number] 09/23/2025 [id number] / / [id number] Clp Hmol Plmr Lg - [id number] Implanted:Qty : 1 on 01/30/2021 by Lenny Gaspar M.D. at [facility] Hardware e.g. pins/screws/ rods [employer] [id number] 10/14/2025 [id number] / / [id number] Clp Hmol Plmr Lg - [id number] Implanted:Qty : 1 on 01/30/2021 by Lenny Gaspar M.D. at [facility] Hardware e.g. pins/screws/ rods [employer] [id number] 10/22/2025 [id number] / / [id number] Clp Hmol Plmr Md - [id number] Implanted:Qty : 1 on 01/30/2021 by Lenny Gaspar M.D. at [facility] Hardware e.g. pins/screws/ rods [employer] [id number] 05/27/2025 [id number] / / [id number] Clp Hmol Plmr Md - [id number] Implanted:Qty : 1 on 01/30/2021 by Lenny Gaspar M.D. at [facility] Hardware e.g. pins/screws/ rods [employer] [id number] 05/21/2025 [id number] / / [id number] Clp Hmol Plmr Md - [id number] Implanted:Qty : 1 on 01/30/2021 by Lenny Gaspar M.D. at [facility] Hardware e.g. pins/screws/ rods [employer] [id number] 09/23/2025 [id number] / / [id number] Clp Hmol Plmr Md - [id number] Implanted:Qty : 1 on 01/30/2021 by Lenny Gaspar M.D. at [facility] Hardware e.g. pins/screws/ rods [employer] [id number] 09/02/2025 [id number] / / [id number] Clp Mark Cheng [id number] Implanted:Qty : 1 on 01/30/2021 by Lenny Gaspar M.D. at [facility] Hardware e.g. pins/screws/ rods [employer] [id number] 09/23/2025 [id number] / / [id number] Clp raina Cheng [id number] Implanted:Qty : 1 on 01/30/2021 by Lenny Gaspar M.D. at [facility] Hardware e.g. pins/screws/ rods [employer] [id number] 05/21/2025 [id number] / / [id number] Procedures Procedure Name Priority Date/Time Associated Diagnosis Comments SODIUM, S/P Routine 06/23/2024 12:46 PM CDT Hypertensive Chronic Kidney Disease With Stage 1 Through Stage 4 Chronic Kidney Disease, Or Unspecified Chronic Kidney Disease POTASSIUM, S/P Routine 06/23/2024 12:46 PM CDT Hypertensive Chronic Kidney Disease With Stage 1 Through Stage 4 Chronic Kidney Disease, Or Unspecified Chronic Kidney Disease CREATININE WITH EGFR, S/P Routine 06/23/2024 12:46 PM CDT Hypertensive Chronic Kidney Disease With Stage 1 Through Stage 4 Chronic Kidney Disease, Or Unspecified Chronic Kidney Disease EXTP COMPLETE BLOOD COUNT, BLOOD Routine 06/14/2024 9:05 AM CDT EXTM ASPARTATE AMINOTRANSFERASE (AST), S/P Routine 06/14/2024 9:05 AM CDT EXTM ALANINE AMINOTRANSFERASE (ALT), S/P Routine 06/14/2024 9:05 AM CDT EXTP BASIC METABOLIC PANEL, BLOOD Routine 06/14/2024 9:05 AM CDT EXTM ALBUMIN, S/P Routine 06/14/2024 URIC ACID, S/P Routine 05/16/2024 11:21 AM CDT Chronic Kidney Disease (CKD), Stage 3a Glomerular Filtration Rate (GFR) 45 To 59 (HCC) Hypertensive Chronic Kidney Disease With Stage 1 Through Stage 4 Chronic Kidney Disease, Or Unspecified Chronic Kidney Disease RENAL FUNCTION PANEL, S Routine 05/16/2024 11:21 AM CDT Chronic Kidney Disease (CKD), Stage 3a Glomerular Filtration Rate (GFR) 45 To 59 (HCC) Hypertensive Chronic Kidney Disease With Stage 1 Through Stage 4 Chronic Kidney Disease, Or Unspecified Chronic Kidney Disease US AORTA AAA SCREENING RAD - Routine (most inpatients and all outpatients) 04/18/2024 9:29 AM CUFF STITCHER Screening Abdominal Aortic Aneurysm ALBUMIN, RANDOM, U Routine 03/22/2024 11:13 AM CUFF STITCHER Chronic Kidney Disease (CKD), Stage 3a Glomerular Filtration Rate (GFR) 45 To 59 (HCC) HEMOGLOBIN A1C, B Routine 03/22/2024 11:04 AM CUFF STITCHER Chronic Kidney Disease (CKD), Stage 3a Glomerular Filtration Rate (GFR) 45 To 59 (HCC) EXTP LIPID PANEL, BLOOD Routine 07/30/2023 9:56 AM CDT from Last 3 Months or Most Recently Relevant to Health Maintenance Results * Sodium (06/23/2024 12:46 PM CDT) Sodium, P 145 135 - 145 mmol/L 06/23/2024 1:17 PM CDT CNFL Blood (Blood, Venous) 06/23/2024 12:46 PM CDT 06/23/2024 12:48 PM CDT us Char Felipe M.D. LAB BLOOD ADD-ON Final Result [address] [address], [address] [address] * (ABNORMAL) Potassium (06/23/2024 12:46 PM CDT) Potassium, P 3.0(L) 3.6 - 5.2 mmol/L 06/23/2024 1:17 PM CDT [facility] Blood (Blood, Venous) 06/23/2024 12:46 PM CDT 06/23/2024 12:48 PM CDT us Char Felipe M.D. LAB BLOOD ADD-ON Final Result Performing Organization Address [facility] Co de Phone Number [address] [address], [address] [address] * Creatinine with Estimated GFR (06/23/2024 12:46 PM CDT) Creatinine 1.15 0.74 - 1.35 mg/dL 06/23/2024 1:17 PM CDT [facility] Estimated GFR (eGFR) 67 >=60 mL/min/BSA 06/23/2024 1:17 PM CDT [facility] Comment: Estimated GFR calculated using the 2020 CKD_EPI creatinine equation. Blood (Blood, Venous) 06/23/2024 12:46 PM CDT 06/23/2024 12:48 PM CDT us Char Felipe M.D. LAB BLOOD ADD-ON Final Result [address] [address], [address] [address] * EXT ALT (Alanine Aminotransferase) (06/14/2024 9:05 AM CDT) Pathologist [facility] EXT ALT 28 4 - 50 U/L OTHER (SP ECIFY IN SYSTEMS COORDINATOR) Blood (Blood, Venous) 06/14/2024 9:05 AM CDT us Carolynn Romero M.D. LAB BLOOD ADD-ON Final Resul t Performing Organization Address City/[facility]/ZIP Co de Phone Number OTHER (SPECIFY IN SYSTEMS COORDINATOR) N/A * EXT AST (Aspartate Aminotransferase) (06/14/2024 9:05 AM CDT) Pathologist [facility] EXT AST 29 12 - 35 U/L OTHER (S PECIFY IN SYSTEMS COORDINATOR) Blood (Blood, Venous) 06/14/2024 9:05 AM CDT Carolynn Romero M.D. LAB BLOOD ADD-ON Final Resul t Performing Organization Address City/[facility] Co de Phone Number OTHER (SPECIFY IN SYSTEMS COORDINATOR) N/A * (ABNORMAL) EXT Basic Metabolic Panel, Blood (06/14/2024 9:05 AM CDT) [facility] EXT Sodium 141 135 - 149 OTHER (SP ECIFY IN SYSTEMS COORDINATOR) EXT Potassium 3.0 3.6 - 5.1 OTHER (SPECIFY IN SYSTEMS COORDINATOR) EXT Chloride 101 96 - 114 OTHER ( SPECIFY IN SYSTEMS COORDINATOR) EXT CO2 30 20 - 32 OTHER (SPE CIFY IN SYSTEMS COORDINATOR) EXT Anion Gap 10 7 - 15 OTHER (SPECIFY IN SYSTEMS COORDINATOR) EXT BUN (Blood Urea Nitrogen) 18 7 - 30 OTHER (SPECIF Y IN SYSTEMS COORDINATOR) EXT Creatinine 1.2 0.5 - 1.5 OTHER (SPECIFY IN SYSTEMS COORDINATOR) EXT Estimated GFR (eGFR) 63 OTHER (SPECIFY IN SYSTEMS COORDINATOR) EXT Calcium, Total 9.3 8.4 - 10.6 OTHER (SPECIFY IN SYSTEMS COORDINATOR) EXT Glucose 253 60 - 115 OTHER (S PECIFY IN SYSTEMS COORDINATOR) Blood (Blood, Venous) 06/14/2024 9:05 AM CDT Carolynn Romero M.D. LAB BLOOD NON ADD-ON Final R esult Performing Organization Address City/[facility] Co de Phone Number OTHER (SPECIFY IN SYSTEMS COORDINATOR) N/A * EXT Complete Blood Count, Blood (06/14/2024 9:05 AM CDT) EXT Hemoglobin 13.6 13.5 - 17.5 gm/dL OTHER (SPECIFY IN SYSTEMS COORDINATOR) EXT Hematocrit 41.1 37.0 - 53.0 % OTHER (SPECIFY IN SYSTEMS COORDINATOR) EXT RBC 4.48 4.30 - 5.90 m/uL OTHER (SPECIFY IN SYSTEMS COORDINATOR) EXT MCV 92 80 - 100 fL OTHER (SPECIFY IN SYSTEMS COORDINATOR) EXT RDW 11.8 11.5 - 15.5 % OTHER (SPECIFY IN SYSTEMS COORDINATOR) EXT WBC 4.66 4.50 - 11.0 K/uL OTHER (SPECIFY IN SYSTEMS COORDINATOR) EXT Neutrophils 71.6 42.0 - 72.0 % OTHER (SPECIFY IN SYSTEMS COORDINATOR) EXT Lymphocytes 12.2 20 - 44 % OTHE R (SPECIFY IN SYSTEMS COORDINATOR) EXT Monocytes 0.50 0.0 - 0.90 K/uL OTHER (SPECIFY IN SYSTEMS COORDINATOR) EXT Eosinophils 4.5 0.0 - 7.0 % OTHER (SPECIFY IN SYSTEMS COORDINATOR) EXT Basophils 0.6 0.0 - 3.0 % OTHER (SPECIFY IN SYSTEMS COORDINATOR) EXT Platelet Count 232 140 - 440 K//uL OTHER (SPECIFY IN SYSTEMS COORDINATOR) Blood (Blood, Venous) 06/14/2024 9:05 AM CDT Carolynn Romero M.D. LAB BLOOD NON ADD-ON Final R esult Performing Organization Address City/[facility] de Phone Number OTHER (SPECIFY IN SYSTEMS COORDINATOR) N/A * EXT Albumin (06/14/2024) EXT Albumin 4.4 3.3 - 5.0 OTHER (S PECIFY IN SYSTEMS COORDINATOR) Blood (Blood, Venous) 06/14/2024 Historical Provider LAB BLOOD ADD-ON Final Resul t Performing Organization Address City/[facility] Co de Phone Number OTHER (SPECIFY IN SYSTEMS COORDINATOR) N/A * (ABNORMAL) Renal Function Panel (05/16/2024 11:21 AM CDT) Potassium, P 3.9 3.6 - 5.2 mmol/L 05/16/2024 11:41 AM CDT CNFL Sodium, P 145 135 - 145 mmol/L 05/16/2024 11:41 AM CDT CNFL Chloride, P 106 98 - 107 mmol/L 05/16/2024 11:41 AM CDT CNFL Bicarbonate, P 29 22 - 29 mmol/L 05/16/2024 11:41 AM CDT CNFL Anion Gap, P 10 7 - 15 05/16/2024 11:41 AM CDT CN[facility] BUN (Blood Urea Nitrogen), P 15 8 - 24 mg/dL 05/16/2024 11:41 AM CDT CN[facility] Creatinine 1.18 0.74 - 1.35 mg/dL 05/16/2024 11:41 AM CDT CN[facility] Estimated GFR (eGFR) 65 >=60 mL/min/BSA 05/16/2024 11:41 AM CDT CN[facility] Comment: Estimated GFR calculated using the 2020 CKD_EPI creatinine equation. Calcium, Total, P 9.1 8.8 - 10.2 mg/dL 05/16/2024 11:41 AM CDT CNFL Glucose, P 165(H) 70 - 140 mg/dL 05/16/2024 11:41 AM CDT CNFL Albumin, P 4.1 3.5 - 5.0 g/dL 05/16/2024 11:41 AM CDT CNFL Phosphorus (Inorganic), P 3.4 2.5 - 4.5 mg/dL 05/16/2024 11:41 AM CDT [facility] Blood (Blood, Venous) 05/16/2024 11:21 AM CDT 05/16/2024 11:22 AM CDT us David Ross M.D. LAB BLOOD ADD-ON Final Resu lt Performing Organization Address City/State/[facility] Co de Phone Number [facility] [address] [place] [phone], [facility] CNFL [facility] in [address] [address] * (ABNORMAL) Uric Acid (05/16/2024 11:21 AM CDT) Uric Acid, P 3.4(L) 3.7 - 8.0 mg/dL 05/16/2024 11:41 AM CDT CNFL Blood (Blood, Venous) 05/16/2024 11:21 AM CDT 05/16/2024 11:22 AM CDT us David Ross M.D. LAB BLOOD ADD-ON Final Resu lt [facility] [address] [place] [address], [facility] in [address] [address] * US Aorta AAA Screening (04/18/2024 9:29 AM CUFF STITCHER) Anatomical Region Laterality Modality Abdomen, Pelvis, Ultrasound RST LOS, Ultrasound ARZ LOS, Ultrasound FLA LOS, Procedural, Vascular Interventional NWWI LOS N/A Ultrasound Impressions 04/18/2024 9:40 AM CUFF STITCHER 1. No abdominal aortic aneurysm. 2. 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 Narrative 04/18/2024 9:40 AM CUFF STITCHER EXAM: US AORTA AAA SCREENING COMPARISON: None FINDINGS: Proximal Aorta: AP - 2.9 cm Proximal Aorta: Trans - 2.9 cm Mid Aorta: AP - 2.4 cm Mid Aorta: Trans - 2.4 cm Distal Aorta: AP - 2.2 cm Distal Aorta: Trans - 1.9 cm Right FELICIA: AP - 1.7 cm Right FELICIA: Trans - 1.7 cm Left FELICIA: AP - 1.8 cm Left FELICIA: Trans - 1.6 cm Procedure Note Dinesh Johnson M.D. - 04/18/2024 EXAM: US AORTA AAA SCREENING COMPARISON: None FINDINGS: Proximal Aorta: AP - 2.9 cm Proximal Aorta: Trans - 2.9 cm Mid Aorta: AP - 2.4 cm Mid Aorta: Trans - 2.4 cm Distal Aorta: AP - 2.2 cm Distal Aorta: Trans - 1.9 cm Right FELICIA: AP - 1.7 cm Right FELICIA: Trans - 1.7 cm Left FELICIA: AP - 1.8 cm Left FELICIA: Trans - 1.6 cm IMPRESSION: 1. No abdominal aortic aneurysm. 2. 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 us Misa Pringle M.D. IMG US PROCEDURES Final Re sult * (ABNORMAL) Albumin, Random, Urine (03/22/2024 11:13 AM CUFF STITCHER) Microalbumin 84.6 mg/L 03/22/2024 7:26 PM CUFF STITCHER RDWG Creatinine 102 mg/dL 03/22/2024 7:26 PM CUFF STITCHER RDWG Albumin/Creatinin e Ratio 83(H) <17 mg/g 03/22/2024 7:26 PM CUFF STITCHER RDWG Urine (Urine, Midstream) 03/22/2024 11:13 AM CUFF STITCHER 03/22/2024 7:03 PM CUFF STITCHER us David Ross M.D. LAB URINE ORDERABLES Final Result [facility] [address] [place] [address], [facility] RDWG [facility] in [address] [address] * (ABNORMAL) Hemoglobin A1c (03/22/2024 11:04 AM CUFF STITCHER) Hemoglobin A1c, B 6.8(H) 4.2 - 5.6 % 03/22/2024 11:21 AM CUFF STITCHER CNFL Comment: Hemoglobin A1c values greater than or equal to 6.5 percent are diagnostic for diabetes mellitus. Diagnosis should be confirmed by repeat testing. In diabetic patients, HbA1c goals should be discussed with healthcare provider. Blood (Blood, Venous) 03/22/2024 11:04 AM CUFF STITCHER 03/22/2024 11:06 AM CUFF STITCHER us David Ross M.D. LAB BLOOD ADD-ON Final Resu lt [facility] [address] [place] [id number], [facility] CNFL [facility] in [address] [address] * EXT Lipid Panel, Blood (07/30/2023 9:56 AM CDT) EXT Cholesterol, Total, S 122 OTHER (SPECIFY IN SYSTEMS COORDINATOR) EXT Triglycerides, S 147 OTHER (SPECIFY IN SYSTEMS COORDINATOR) EXT Cholesterol, HDL, S 50 OTHER (SPECIFY IN SYSTEMS COORDINATOR) EXT Calculated LDL 43 OTHER (SPECIFY IN SYSTEMS COORDINATOR) Blood (Blood, Venous) 07/30/2023 9:56 AM CDT us Historical Provider LAB BLOOD NON ADD-ON Final R esult OTHER (SPECIFY IN SYSTEMS COORDINATOR) N/A from Last 3 Months or Most Recently Relevant to Health Maintenance Insurance [facility] MEDICARE Advance Directives For more information, please contact: [phone] Documents on File Type Date Recorded Patient Dye Reel Operator Helper Expl anation Advance Directives 01/19/2023 8:25 AM Anahy Bellamy PilarRodolfo Luis HCPOA/ADVOCATE/AGENT/ NEEDLE BAR MOLDER/SURROG ATE * Full Code (Latest Code Status on File) Date Activated Date Inactivated Comments 02/22/2024 5:09 PM 02/25/2024 4:39 PM Question Answer Comments Full Code: Discussed * Full Code Date Activated Date Inactivated Comments 01/30/2021 9:38 PM 01/31/2021 4:28 PM Question Answer Comments Full Code: Discussed Healthcare Agents on File Name Relationship Healthcare Agent Relationship Communication Anahy Barton Spouse Health Care Agent Tricia Bronson Daughter First Alternate Health Care Agent Inocencia Luis Daughter Second Alternate Health Care Agent Care Teams Manager Of Finance Relationship Specialty Start Date End Date Misa Pringle M.D. [address] [place] [phone] PCP - General Family Medicine 02/25/24 [facility] Liquor Bridge Operator Helper 04/18/24 [facility] 04/18/24
--- OUTSIDE RECORDS SUMMARY | 2024-06-30 21:16 | XMS_ITS | Encounter Summary ---
Author Organization [facility] Address [address] [place] [address] Care Team Providers Care Search Engine Marketing Specialist Name Role Phone Misa Pringle M.D. Primary Care Provider [phone]- [phone] Reason for Visit * Reason Onset Date Comments Med list 06/14/2024 Encounter Details Date Type Department Care Team (Late st Contact Info) Description 06/14/2024 Clinical Communication Department of Family Medicine, [facility], in [address] [phone] Misa Pringle M.D. [address] [place] [phone] Med list Social History Tobacco Use Types Packs/Day Years Used Date Smoking Tobacco: Former Cigarettes 0.8 13.9 0 03/02/1965 - 01/30/1979 Smokeless Tobacco: Never Alcohol Use Standard Drinks/Week Comments Not Currently 0 (1 standard drink = 0.6 oz pur e alcohol) [facility] Utilities Answer Date Recorded In the [...] How often do you attend chur or moravian services? Patient declined 07/18/2022 Do you belong [...] Answer Date Recorded PHQ-2 Score 0 04/18/2024 [facility] [place] of Occupat ional Health - Occupational Stress [...] your living situation today? I have a [facility] place to live 02/23/2024 Education Answer Date Recorded What is the highest level of school you have completed or the highest degree you have received? 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 - 06/15/2024 2:58 PM CDT Lab results faxed over from [facility]. Results entered into EHR. * Telephone Encounter - Xochitl [place]wood R.N. - 06/14/2024 3:37 PM CDT Scanned the med list from [place] to [facility]. Per visit on 06/07/24 patient is not taking potassium and it was noted by provider that potassium levels had been high due to medication interactions. documented in this encounter Plan of Treatment Upcoming Encounters Date Type Department Care Team (Late st Contact Info) Description 07/07/2024 2:30 PM CDT Office Visit Division of Nephrology and Hypertension in [place], [place] [address] [place] [address] David Ross M.D. [address] [place] [phone] documented as of this encounter Visit Diagnoses Not on filedocumented in this encounter Care Teams Search Engine Marketing Specialist Relationship Specialty Start Date End Date Misa Pringle M.D. [address] [place] [phone] PCP - General Family Medicine 02/25/24 [facility] Rent And Housing Investigator 04/18/24 [facility] 04/18/24 documented as of this encounter
--- OUTSIDE RECORDS SUMMARY | 2024-06-30 21:16 | XMS_ITS | Encounter Summary ---
Author Organization [facility] Address [address] [place] [address] Care Team Providers Care Junior Mechanical Engineer Name Role Phone Misa Pringle M.D. Primary Care Provider [phone]- [phone] Encounter Details Date Type Department Care Team (Late st Contact Info) Description 04/25/2024 Results Follow-Up Department of Family Medicine, [facility], in [address] [phone] Misa Pringle M.D. [address] [place] [phone] [employer] Screening Social History Tobacco Use Types Packs/Day Years Used Date Smoking Tobacco: Former Cigarettes 0.8 13.9 0 03/02/1965 - 01/30/1979 Smokeless Tobacco: Never Alcohol Use Standard Drinks/Week Comments Not Currently 0 (1 standard drink = 0.6 oz pur e alcohol) [facility] Utilities Answer Date Recorded In [...] How often do you attend chur or congregation services? Patient declined 07/18/2022 Do you belong to any clubs o r organizations such as roman catholic groups, unions, fraternal or [...] Answer Date Recorded PHQ-2 Score 0 04/18/2024 [facility] of Occupat ional Health [...] your living situation today? I have a [facility] place to live 02/23/2024 Education Answer Date Recorded What is the highest level of school you have completed or the highest degree you have received? 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 [address] [place] [address] documented as of this encounter Visit Diagnoses Not on filedocumented in this encounter Care Teams Junior Mechanical Engineer Relationship Specialty Start Date End Date Misa Pringle M.D. [address] [place] [phone] PCP - General Family Medicine 02/25/24 [facility] Injury Prevention Coordinator 04/18/24 [facility] 04/18/24 documented as of this encounter
--- OUTSIDE RECORDS SUMMARY | 2024-06-30 21:16 | XMS_ITS | Clinical Summary ---
Author Organization [facility] Address [address] [place] [address] Care Team Providers Care Director Of Search Engine Marketing Name Role Phone Gilberto Cho MD Primary Care Provider [phone] Allergies No known active allergies Medications amLODIPine (NORVASC) 10 mg tablet Take 10 mg by mouth once daily. 05/18/2020 Active aspirin (ECOTRIN) 81 mg enteric coated tablet Daily Active Accu-Chek Guide test strips strip 2 times daily. 05/22/2020 Active lisinopriL (PRINIVIL; ZESTRIL) 40 mg tablet Take 40 mg by mouth once daily. 05/18/2020 Active metoprolol tartrate (LOPRESSOR) 50 mg tablet Twice A Day 05/18/2020 Active triamterene-hydr ochlorothiazide, 37.5-25 mg, (MAXZIDE-25) 37.5-25 mg tablet Take [...] 03/2017 polyp, repeat in 5 years Immunizations Immunization Administration Dates Next Due Zoster (Zostavax-ZVL, live) 11/02/2013 Social History Tobacco Use Types Packs/Day Years Used Date Smoking Tobacco: Former Cigarettes Smokeless Tobacco: Never Tobacco Cessation:Counseling Given: Yes Alcohol Use Standard Drinks/Week Comments Not Currently 0 (1 standard drink = 0.6 oz pur e alcohol) Sex and Gender Information Value Date Recorded Sex Assigned at Not on file Legal Sex Male 8:[address] LIGHT Gender Identity Not on file Sexual Orientation [...] booster 1969 Lipids for age 45-75 1994 Pneumococcal series for age 50+ (1 of 1 - PCV) 10/12/1999 Zoster (shingles) series for age 50+ (2 of 3) 12/28/2013 11/02/2013 Medicare Wellness for age 65+ 2014 Colonoscopy through age 75 03/17/202203/17, 03/17/2017, 02/17/2017, Additional history exists COVID-19 vaccine series ( - 2023- season) 2023 RSV vaccine for adults or (1 - 1-dose 75+ series) 2024 Influenza Vaccine (Season Ended) 2024 Procedures Procedure Name Priority Date/Time Associated Diagnosis Comments COLONOSCOPY 03/17/2017 11:[address] LIGHT from Last 3 Months or Most Recently Relevant to Health Maintenance Results * COLONOSCOPY (03/17/2017 11:[address] LIGHT) 03/17/2017 11:[address] LIGHT Narrative Transcriptions Latrell Keith MD - 03/18/2017 [...] adequate candidate for conscious sedation. The [id number] was passed through the anus and advanced [...] reponse to care. [facility] for moderate sedation details. Total physician intraservice time was 18 minutes. Latrell Keith MD 03/17/2017 12:30:42 PM This report has been signed electronically. Note Initiated On: 03/17/2017 11:19 AM Procedure Code(s): --- Professional --- 47178, Colonoscopy, flexible; with removalof tumor(s), polyp(s), or other lesion(s) bysnare technique Diagnosis Code(s): --- Professional --- D12.0, Benign neoplasm of cecum D12.2, Benign neoplasm of ascending colon D12.5, Benign neoplasm of sigmoid colon Z86.010, Personal history of colonicpolyps K57.30, Diverticulosis of large intestine without perforation or abscess withoutbleeding CPT copyright 2016 [employer]. All rights reserved. The codes documented in this report are preliminary and upon night custodian reviewmay be revised to meet current compliance requirements. Scope In: 12:08:02 PM Scope Withdrawal Time 0 hours 14 minutes 9 seconds Scope Out: 12:24:50 PM Latrell Keith MD PROCEDURE ORD Edited Re sult - Final from Last 3 Months or Most Recently Relevant to Health Maintenance Insurance [employer] [place] [employer] [place] ONLY Care Teams Director Of Search Engine Marketing Relationship Specialty Start Date End Date Gilberto Cho MD PCP - General Family Practice 03/17/17
--- OUTSIDE RECORDS SUMMARY | 2024-06-30 21:16 | XMS_ITS | Encounter Summary ---
Author Organization [facility] Address [address] [place] [address] Care Team Providers Care Applier Name Role Phone Misa Pringle M.D. Primary Care Provider [phone] Encounter Details Date Type Department Care Team (Latest Contact Info) Description 06/23/2024 12:30 PM CDT - 06/23/2024 11:59 PM CDT Hospital Encounter Department of Laboratory Medicine in [address] [phone] Char Schaeffer M.D. [address] [place] [phone] Hypertensive Chronic Kidney Disease With Stage 1 Through Stage 4 Chronic Kidney Disease, Or Unspecified Chronic Kidney Disease Discharge Disposition: Home or Self Care Social History Tobacco Use Types Packs/Day Years Used Date Smoking Tobacco: Former Cigarettes 0.8 13.9 0 03/02/1965 - 01/30/1979 Smokeless Tobacco: Never Alcohol Use Standard Drinks/Week Comments Not Currently 0 (1 standard drink = 0.6 oz pur e alcohol) [facility] Utilities Answer Date Recorded In the past 12 months has [employer] electric, gas, oil, or water company threatened [...] week 07/18/2022 How often do you attend [facility] or anglican services? Patient declined 07/18/2022 Do you belong [...] Answer Date Recorded PHQ-2 Score 0 04/18/2024 [facility] [place] of Occupat ional Health - Occupational Stress [...] your living situation today? I have a [facility] place to live 02/23/2024 Education Answer Date Recorded What is the highest level of school you have completed or the highest degree you have received? 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 01/31/2021 amLODIPine (Norvasc) 10 mg tablet Take 1 tablet (10 mg total) by mouth daily. 90 tablet 3 03/09/[address] tablet Take 81 mg by mouth daily. blood sugar diagnostic (Accu-Chek Guide test strips) strips 2 times daily. 05/22/2020 cholecalciferol, vitamin D3, 25 mcg (1,000 Unit) tablet Daily furosemide (Lasix) 40 mg tablet Take 1 tablet (40 mg total) by mouth daily. 90 tablet 3 06/07/2024 lancets 2 times daily. 05/22/2020 latanoprost (Xalatan) 0.005 % ophthalmic solution Administer 1 drop into the right eye every evening. 02/02/2024 lisinopriL 40 mg tablet Take 1 tablet (40 mg total) by mouth daily. 90 tablet 3 06/27/2024 metFORMIN XR (Glucophage-XR) 500 mg 24 hr tablet Take 1 tablet by mouth daily. 01/11/2024 metoprolol tartrate (Lopressor) 50 mg tablet Take 1 tablet (50 mg total) by mouth 2 (two) times a day. Hold until seen by PCP 02/25/2024 rosuvastatin (Crestor) 10 mg tablet Take 1 tablet by mouth daily. 01/14/2024 lisinopriL 20 mg tablet Take 1 tablet (20 mg total) by mouth daily. 90 tablet 3 04/04/2024 documented as of this encounter Plan of Treatment Upcoming Encounters Date Type Department Care Team (Late st Contact Info) Description 07/07/2024 2:30 PM CDT Office Visit Division of Nephrology and Hypertension in [place], [place] [address] [place] [address] David Ross M.D. [address] [place] [phone] documented as of this encounter Procedures Procedure [...] Kidney Disease, Or Unspecified Chronic Kidney Disease documented in this encounter Results * Sodium (06/23/2024 12:46 PM CDT) Sodium, P 145 135 - 145 mmol/L 06/23/2024 1:17 PM CDT CNFL Blood (Blood, Venous) 06/23/2024 12:46 PM CDT 06/23/2024 12:48 PM CDT us Char Felipe M.D. LAB BLOOD ADD-ON Final Result [address] [address], [address] [address] * (ABNORMAL) Potassium (06/23/2024 12:46 PM CDT) Potassium, P 3.0(L) 3.6 - 5.2 mmol/L 06/23/2024 1:17 PM CDT CNFL Blood (Blood, Venous) 06/23/2024 12:46 PM CDT 06/23/2024 12:48 PM CDT us Char Felipe M.D. LAB BLOOD ADD-ON Final Result [address] [address], [address] [address] * Creatinine with Estimated GFR (06/23/2024 12:46 PM CDT) Creatinine 1.15 0.74 - 1.35 mg/dL 06/23/2024 1:17 PM CDT CNFL Estimated GFR (eGFR) 67 >=60 mL/min/BSA 06/23/2024 1:17 PM CDT CNFL Comment: Estimated GFR calculated using the 2020 CKD_EPI creatinine equation. Blood (Blood, Venous) 06/23/2024 12:46 PM CDT 06/23/2024 12:48 PM CDT Char Felipe M.D. LAB BLOOD ADD-ON Final Result [facility] [address] [place] [address], [facility] in [address] [address] documented in this encounter Visit Diagnoses Diagnosis Hypertensive Chronic Kidney Disease With Stage 1 Through Stage 4 Chronic Kidney Disease, Or Unspecified Chronic Kidney Disease documented in this encounter Care Teams Applier Relationship Specialty Start Date End Date Misa Pringle M.D. [address] [place] [phone] PCP - General Family Medicine 02/25/24 [facility] Stockroom Worker 04/18/24 [facility] 04/18/24 documented as of this encounter
--- OUTSIDE RECORDS SUMMARY | 2024-06-30 21:16 | XMS_ITS | Encounter Summary ---
Author Organization [facility] Address [address] [place] [address] Care Team Providers Care News Internship Name Role Phone Misa Pringle M.D. Primary Care Provider [phone]- [phone] Encounter Details Date Type Department Care Team (Latest Contact Info) Description 05/16/2024 Results Follow-Up Division of Nephrology and Hypertension in [place], [place] [address] [place] [address] David Ross M.D. [address] [place] [phone] Renal Function Panel, Uric Acid Social History Tobacco Use Types Packs/Day Years Used Date Smoking Tobacco: Former Cigarettes 0.8 13.9 0 03/02/1965 - 01/30/1979 Smokeless Tobacco: Never Alcohol Use Standard Drinks/Week Comments Not Currently 0 (1 standard drink = 0.6 oz pur e alcohol) [facility] Utilities Answer Date Recorded In the [...] How often do you attend chur or hoahaoism services? Patient declined 07/18/2022 Do you belong to any clubs o r organizations such as taoist groups, unions, fraternal or athletic [...] Answer Date Recorded PHQ-2 Score 0 04/18/2024 [facility] [place] of Occupat ional Health - Occupational Stress [...] living situation today? I have a [facility] place to live 02/23/2024 Education Answer Date Recorded What is the highest level of school you have completed or the highest degree you have received? 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 [address] [place] [phone] documented as of this encounter Visit Diagnoses Not on filedocumented in this encounter Care Teams News Internship Relationship Specialty Start Date End Date Misa Pringle M.D. [address] [place] [phone] PCP - General Family Medicine 02/25/24 [facility] Box Maker Paperboard 04/18/24 [facility] 04/18/24 documented as of this encounter
--- OUTSIDE RECORDS SUMMARY | 2024-06-30 21:16 | XMS_ITS ---
Author Organization [facility] Address [address] [place] [address] Care Team Providers Care Toolroom Helper Name Role Phone Misa Pringle M.D. Primary Care Provider [phone]- [phone] Active Problems * This document contains information received from the source organization and may not represent a complete record from that organization. Problem Noted Date Diagnosed Date Diabetes Mellitus [...] Disease, Or Unspecified Chronic Kidney Disease 01/21/2021 Current Treatment and Therapy Plans No current plan information found. Past Treatment and Therapy Plans Hem/Onc Therapy Plan 1 Plan Name Start Date Discontinue Date Treatment Medications Discontinue Reason Plan Provider LEUPROLIDE ACETATE EVERY 24 WEEKS 12/23/2021 12/17/2022 No medications scheduled. Unlisted Yenny Suarez P.A.-C., M.S. Leuprolide Acetate Every 12 Weeks 07/30/2021 12/23/2021 No medications scheduled. Therapy Complete [place] M.D. 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
--- OUTSIDE RECORDS SUMMARY | 2024-06-30 21:16 | XMS_ITS | Encounter Summary ---
Author Organization [facility] Address [address] [place] [address] Care Team Providers Care Executive Producer [employer] Name Role Phone Misa Pringle M.D. Primary Care Provider +1- [phone] Reason for Referral * Outpatient (Routine) - Closed Specialty Diagnoses / Procedures Referred By Bhakti ingram Referred To Contact Char Schaeffer M.D. [address] [place] [phone] Phone: tel: fax: [facility] Region Referral ID Status Reason Start Date Expiration Date Visits Re quested Visits Authorized [id number] Closed 06/07/2024 12/07/2025 1 1 Reason for Visit * Reason Comments Pre-op Exam Eye surgery 06/10 and 06/20, [facility]] no concerns * Appointment Request (Routine) - Closed Specialty Diagnoses / Procedures Referred By Bhakti ingram Referred To Contact Family Medicine Referral ID Status Reason Start Date Expiration Date Visits Re quested Visits Authorized [id number] Closed 05/30/2024 08/30/2025 1 1 Encounter Details Date Type Department Care Team (Late st Contact Info) Description 06/07/2024 8:40 AM CDT Office Visit Department of Family Medicine, [facility], in [address] [phone] Char Schaeffer M.D. [address] [place] [phone] Preoperative Exam (Primary Dx); Hypertensive Chronic Kidney Disease With Stage 1 Through Stage 4 Chronic Kidney Disease, Or Unspecified Chronic Kidney Disease; Diabetes Mellitus Type 2 Without Complication (HCC); Polyp Colon Adenomatous Personal History Discharge Disposition: Home or Self Care Social History Tobacco Use Types Packs/Day Years Used Date Smoking Tobacco: Former Cigarettes 0.8 13.9 0 03/02/1965 - 01/30/1979 Smokeless Tobacco: Never Tobacco Cessation:Counseling Given: Not Answered Alcohol Use Standard Drinks/Week Comments Not Currently 0 (1 standard drink = 0.6 oz pur e alcohol) [facility] [employer] Answer Date Recorded In the past 12 months has [employer], oil, or water [employer] threatened to shut off services in your [...] week 07/18/2022 How often do you attend [facility] or catholic services? Patient declined 07/18/2022 Do you belong to any clubs o r organizations such as mandaeism groups, unions, fraternal or athletic [...] Answer Date Recorded PHQ-2 Score 0 04/18/2024 [facility] - Occupational Stress Questionnaire Answer Date [...] your living situation today? [facility] 02/23/2024 Education Answer Date Recorded What is the highest level of school you have completed or the highest degree you have received? 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 Gender Identity Male 06/27/2021 1:28 PM CDT Sexual Orientation Straight 06/27/2021 1: 28 PM CDT documented as of this encounter Last Filed Vital Signs Vital Sign Reading Time Taken Comments Blood Pressure 169/85 06/07/2024 8:42 AM CDT Pulse 53 06/07/2024 8:42 AM CDT Temperature 36.6 C (97.9 F) 06/07/2024 8:37 AM CDT Respiratory Rate - - Oxygen Saturation 98% 06/07/2024 8:37 AM CDT Inhaled Oxygen Concentration - - Weight 90.8 kg (200 lb 2.8 oz) 06/07/2024 8:37 A M CDT Height 174 cm (5' 8.5) 06/07/2024 8:37 AM CDT Body Mass Index 29.99 06/07/2024 8:37 AM CDT documented in this encounter Patient Instructions * Attachments The following attachments cannot be sent through Care Everywhere. * High blood pressure: What you can do documented in this encounter H&P Notes * Char Schaeffer M.D. - 06/07/2024 8:40 AM CDT DATE OF VISIT: 06/07/2024 SUBJECTIVE CHIEF COMPLAINT / REASON FOR VISIT Cory Barton is a 73 y.o. male who presents for evaluation of Pre-op Exam (Eye surgery 06/10 and 06/20, [facility]] no concerns ). The patient verbally consented to an audio recording of their visit to assist with the completion of documentation. History of Present Illness The patient, a 73-year-old individual with a history of hypertension, diabetes, and prostate surgery, presents for a pre-operative physical examination for upcoming cataract surgery with Dr. Farah at [facility] in [place]. First surgery is June 13 and 2nd surgery is June 20. The patient reports no issues with previous anesthesia, blood clots, or bleeding. The patient's blood pressure has been slightly elevated recently, averaging around 160/80s at home. The patient is under the care of a director data architecture. The patient's last A1c in March was 6.8. He denies any issues with chest pain or shortness for breath. current medications[1] The patient's allergies, problem list and medical history portions of the patient's history were reviewed and updated as appropriate. REVIEW OF SYSTEMS Constitutional: - Negative for fatigue, fever, weight gain of more than 10 pounds and weight loss of more than 10 pounds. Eyes: Positive for visual problems. ENT: - Negative for difficulty hearing and sinus congestion. Respiratory: - Negative for coughing up mucus (phlegm), dry cough, shortness of breath and wheezing. Cardiovascular: - Negative for chest pain, pressure or tightness and rapid or fluttering heart beat. Gastrointestinal: - Negative for abdominal (belly) pain or cramping, constipation, diarrhea, nausea and vomiting. Genitourinary: - Negative for difficulty urinating and pain with urination. Musculoskeletal: - Negative for pain or stiffness in the joints, joint swelling and muscle pain/stiffness. Neurological: - Negative for numbness or shooting pain in hands, arms, legs, or feet and headaches. Psychiatric/Behavioral: - Negative for sleep disturbance and feeling down, depressed, or hopeless over past two weeks. OBJECTIVE VITAL SIGNS BP (!) 169/85 (BP Location: Left arm, Patient Position: Sitting, Cuff Size: Large) Pulse (!) 53 Temp 36.6 ??C (Temporal) Ht 174 cm Wt 90.8 kg SpO2 98% BMI 29.99 kg/m?? Physical Exam Constitutional General: He is not in acute distress. Appearance: He is well-developed. HENT Head: Normocephalic and atraumatic. Right Ear: Tympanic membrane, ear canal and external ear normal. Left Ear: Tympanic membrane, ear canal and external ear normal. Nose: Nose normal. Mouth/Throat: Mouth: Mucous membranes are moist. Pharynx: No posterior oropharyngeal erythema. Eyes Extraocular Movements: Extraocular movements intact. Conjunctiva/sclera: Conjunctivae normal. Pupils: Pupils are equal, round, and reactive to light. Neck Thyroid: No thyromegaly. Vascular: No carotid bruit. Cardiovascular Rate and Rhythm: Normal rate and regular rhythm. Heart sounds: Murmur heard. No gallop. Pulmonary Effort: Pulmonary effort is normal. Breath sounds: Normal breath sounds. Abdominal General: Bowel sounds are normal. Palpations: Abdomen is soft. There is no mass. Tenderness: There is no abdominal tenderness. There is no guarding or rebound. Musculoskeletal Cervical back: Normal range of motion and neck supple. Right lower leg: Edema (2+) present. Left lower leg: Edema (2+) present. Lymphadenopathy Cervical: No cervical adenopathy. Skin General: Skin is warm. Findings: No rash. Neurological General: No focal deficit present. Mental Status: He is alert and oriented to person, place, and time. Cranial Nerves: No cranial nerve deficit. Psychiatric Mood and Affect: Mood normal. Behavior: Behavior normal. DIAGNOSTICS Results for orders placed or performed during the hospital encounter of 05/16/24 Renal Function Panel Collection Time: 05/16/24 11:21 AM Result Value Ref Range Potassium, P 3.9 3.6 - 5.2 mmol/L Sodium, P 145 135 - 145 mmol/L Chloride, P 106 98 - 107 mmol/L Bicarbonate, P 29 22 - 29 mmol/L Anion Gap, P 10 7 - 15 BUN (Blood Urea Nitrogen), P 15 8 - 24 mg/dL Creatinine 1.18 0.74 - 1.35 mg/dL Estimated GFR (eGFR) 65 >=60 mL/min/BSA Calcium, Total, P 9.1 8.8 - 10.2 mg/dL Glucose, P 165 (H) 70 - 140 mg/dL Albumin, P 4.1 3.5 - 5.0 g/dL Phosphorus (Inorganic), P 3.4 2.5 - 4.5 mg/dL Uric Acid Collection Time: 05/16/24 11:21 AM Result Value Ref Range Uric Acid, P 3.4 (L) 3.7 - 8.0 mg/dL ASSESSMENT / PLAN #1 Preoperative Exam Preoperative physical examination for cataract surgery scheduled on June [address] Farah at [facility]. No anesthesia complications, bleeding issues, or blood clots. No additional concerns reported. No blood work required for cataract surgery. Instructions provided for medication management on the day of surgery. - Send preoperative exam results to [facility] in [place] - Instruct to withhold metformin, diuretic and lisinopril on the morning of the procedure - Continue baby aspirin #2 Hypertensive Chronic Kidney Disease With Stage 1 Through Stage 4 Chronic Kidney Disease, Or Unspecified Chronic Kidney Disease Blood pressure readings at home average 160/80s, with a heart rate of 71. In- office heart rate was 52. Fluctuating blood pressure with an increase since January. High potassium levels due to medication interactions. Current medications include amlodipine, lisinopril, and metoprolol. Discussed increasing Lasix dosage to manage blood pressure and ankle edema. Potential for home blood pressure monitor discrepancies noted. Plan to confirm accuracy of home blood pressure readings. - Increase Lasix to two 20 mg tablets daily until current supply is exhausted, then switch to 40 mgtablet - Recheck kidney function, sodium, and potassium levels in 1-2 weeks after Lasix adjustment - Schedule nurse visit for blood pressure check with home device to compare with clinic readings - Provide lifestyle modification information to help lower blood pressure #3 Diabetes Mellitus Type 2 Without Complication (HCC) Last A1c in March was 6.8, indicating good control. Metformin is taken twice daily. #4 Polyp Colon Adenomatous Personal History Colonoscopy performed in November 2023, but records are not available in the current system. - Request transfer of colonoscopy records [facility] Follow-up Coordination of lab work and appointments to minimize visits. Labs ordered for kidney function and blood pressure check. - Schedule labs and nurse visit in 1-2 weeks for kidney function and blood pressure check - Coordinate lab work with upcoming appointments with nephrology - Ensure labs are scheduled in the preferred location for convenience Char Felipe MD [1] Current Outpatient Medications Medication Sig acetaminophen (TYLENOL) 500 mg tablet Take 2 tablets (1,000 mg total) by mouth every 6 (six) hours as needed for pain. amLODIPine (Norvasc) 10 mg tablet Take 1 tablet (10 mg total) by mouth daily. aspirin [address] tablet Take 81 mg by mouth daily. blood sugar diagnostic (Accu-Chek Guide test strips) strips 2 times daily. cholecalciferol, vitamin D3, 25 mcg (1,000 Unit) tablet Daily furosemide (Lasix) 40 mg tablet Take 1 tablet (40 mg total) by mouth daily. lancets 2 times daily. latanoprost (Xalatan) 0.005 % ophthalmic solution Administer 1 drop into the right eye every evening. lisinopriL 20 mg tablet Take 1 tablet (20 mg total) by mouth daily. metFORMIN XR (Glucophage-XR) 500 mg 24 hr tablet Take 1 tablet by mouth daily. metoprolol tartrate (Lopressor) 50 mg tablet Take 1 tablet (50 mg total) by mouth 2 (two) times a day. Hold until seen by PCP rosuvastatin (Crestor) 10 mg tablet Take 1 tablet by mouth daily. documented in this encounter Plan of Treatment Upcoming Encounters Date Type Department Care Team (Late st Contact Info) Description 07/07/2024 2:30 PM CDT Office Visit Division of Nephrology and Hypertension in [place], [place] [address] [place] [phone] David Ross M.D. [address] [place] [phone] Scheduled Referrals Name Type Priority Associated Diagnoses Orde r Schedule Primary Care nurse visit (clinic) - [facility] Region; BP check; BP check w/ home device Outpatient Referral Routine Expected: 06/21/2024, Expires: 09/06/2025 documented as of this encounter Results * Sodium (06/23/2024 12:46 PM CDT) Sodium, P 145 135 - 145 mmol/L 06/23/2024 1:17 PM CDT CNFL Blood (Blood, Venous) 06/23/2024 12:46 PM CDT 06/23/2024 12:48 PM CDT Char Felipe M.D. LAB BLOOD ADD-ON Final Result [address] [address], [address] [address] * (ABNORMAL) Potassium (06/23/2024 12:46 PM CDT) Potassium, P 3.0(L) 3.6 - 5.2 mmol/L 06/23/2024 1:17 PM CDT CNSD Blood (Blood, Venous) 06/23/2024 12:46 PM CDT 06/23/2024 12:48 PM CDT us Char Felipe M.D. LAB BLOOD ADD-ON Final Result Performing Organization Address City/[facility]/ZIP Co de Phone Number [address] [address], [place] [facility] in [address] [address] * Creatinine with Estimated GFR (06/23/2024 12:46 PM CDT) Creatinine 1.15 0.74 - 1.35 mg/dL 06/23/2024 1:17 PM CDT CNFL Estimated GFR (eGFR) 67 >=60 mL/min/BSA 06/23/2024 1:17 PM CDT [facility] Comment: Estimated GFR calculated using the 2020 CKD_EPI creatinine equation. Blood (Blood, Venous) 06/23/2024 12:46 PM CDT 06/23/2024 12:48 PM CDT us Char Felipe M.D. LAB BLOOD ADD-ON Final Result [address] [address], [place] [address] [address] documented in this encounter Visit Diagnoses Diagnosis Preoperative Exam- Primary Hypertensive Chronic Kidney Disease With Stage 1 Through Stage 4 Chronic Kidney Disease, Or Unspecified Chronic Kidney Disease Diabetes Mellitus Type 2 Without Complication (HCC) Polyp Colon Adenomatous Personal History documented in this encounter Care Teams Executive Producer [employer] Relationship Specialty Start Date End Date Misa Pringle M.D. [phone] [phone] PCP - General Family Medicine 02/25/24 [facility] Boarder Machine 04/18/24 [facility] 04/18/24 documented as of this encounter
--- OUTSIDE RECORDS SUMMARY | 2024-06-30 21:16 | XMS_ITS | Encounter Summary ---
Author Organization [facility] Address [address] [place] [address] Care Team Providers Care Family Practice Medical Doctor Name Role Phone Misa Pringle M.D. Primary Care Provider +1- [phone] Encounter Details Date Type Department Care Team (Latest Contact Info) Description 05/16/2024 11:00 AM CDT - 05/16/2024 11:59 PM CDT Hospital Encounter Department of Laboratory Medicine in [address] [phone] David Ross M.D. [address] [place] [address] Chronic Kidney Disease (CKD), Stage 3a Glomerular [...] Recorded In the past 12 months has [employer], gas, oil, or water [employer] threatened to shut off services in your [...] do you attend [facility] or yazdanism services? Patient declined 07/18/2022 Do you belong [...] Answer Date Recorded PHQ-2 Score 0 04/18/2024 [facility] of Occupat ional Health - Occupational Stress [...] your living situation today? I have a [facility] place to live 02/23/2024 Education Answer Date Recorded What is the highest level of school you have completed or the highest degree you have received? 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 05/22/2020 latanoprost (Xalatan) 0.005 % ophthalmic solution Administer 1 drop into the right eye every evening. 02/02/2024 metFORMIN XR (Glucophage-XR) 500 mg 24 hr tablet Take 1 tablet by mouth daily. 01/11/2024 metoprolol tartrate (Lopressor) 50 mg tablet Take 1 tablet (50 mg total) by mouth 2 (two) times a day. Hold until seen by PCP 02/25/2024 rosuvastatin (Crestor) 10 mg tablet Take 1 tablet by mouth daily. 01/14/2024 furosemide (Lasix) 20 mg tablet Take 1 tablet (20 mg total) by mouth daily. 90 tablet 3 05/12/2024 5 lisinopriL 20 mg tablet Take 1 tablet (20 mg total) by mouth daily. 90 tablet 3 04/04/2024 5 prednisoLONE acetate (Pred Forte) 1 % ophthalmic suspension Administer 1 drop into the right ear daily. 02/16/2024 documented as of this encounter Plan of Treatment Upcoming Encounters Date Type Department Care Team (Late st Contact Info) Description 07/07/2024 2:30 PM CDT Office Visit Division of Nephrology and Hypertension in [place], [place] [address] [place] [phone] David Ross M.D. [address] [place] [address] documented as of this encounter Procedures Procedure Name Priority Date/Time Associated Diagnosis Comments RENAL FUNCTION PANEL, S Routine 05/16/2024 11:21 AM CDT Chronic Kidney Disease (CKD), Stage 3a Glomerular Filtration Rate (GFR) 45 To 59 (HCC) Hypertensive Chronic Kidney Disease With Stage 1 Through Stage 4 Chronic Kidney Disease, Or Unspecified Chronic Kidney Disease URIC ACID, S/P Routine 05/16/2024 11:21 AM CDT Chronic Kidney Disease (CKD), Stage 3a Glomerular Filtration Rate (GFR) 45 To 59 (HCC) Hypertensive Chronic Kidney Disease With Stage 1 Through Stage 4 Chronic Kidney Disease, Or Unspecified Chronic Kidney Disease documented in this encounter Results * (ABNORMAL) Uric Acid (05/16/2024 11:21 AM CDT) Uric Acid, P 3.4(L) 3.7 - 8.0 mg/dL 05/16/2024 11:41 AM CDT CNFL Blood (Blood, Venous) 05/16/2024 11:21 AM CDT 05/16/2024 11:22 AM CDT us David Ross M.D. LAB BLOOD ADD-ON Final Resu lt Performing Organization Address [facility]/State/ZIP Co de Phone Number [facility] [address] [place] [address], [facility] CNFL [facility] [place] [address] * (ABNORMAL) Renal Function Panel (05/16/2024 11:21 [...] M.D. LAB BLOOD ADD-ON Final Resu lt [facility] [address] [place] [id number], [facility] CNFL [facility] in [address] [address] documented in this encounter Visit Diagnoses Diagnosis Chronic Kidney Disease (CKD), Stage 3a Glomerular Filtration Rate (GFR) 45 To 59 (HCC) Hypertensive Chronic Kidney Disease With Stage 1 Through Stage 4 Chronic Kidney Disease, Or Unspecified Chronic Kidney Disease documented in this encounter Care Teams Family Practice Medical Doctor Relationship Specialty Start Date End Date Misa Pringle M.D. [address] [place] [phone] PCP - General Family Medicine 02/25/24 [facility] Photoengraver Apprentice 04/18/24 [facility] 04/18/24 documented as of this encounter
--- OUTSIDE RECORDS SUMMARY | 2024-06-30 21:16 | XMS_ITS | Encounter Summary ---
Author Organization [facility] Address [address] [place] [address] Care Team Providers Care Clergy Member Name Role Phone Misa Pringle M.D. Primary Care Provider +1- [phone] Encounter Details Date Type Department Care Team (Late st Contact Info) Description 06/07/2024 Clinical Communication Department of Family Medicine, [facility], in [address] [phone] Char Schaeffer M.D. 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 [address] [place] [address] documented as of this encounter Visit Diagnoses Not on filedocumented in this encounter Care Teams Clergy Member Relationship Specialty Start Date End Date Misa Pringle M.D. [address] [place] [phone] PCP - General Family Medicine 02/25/24 [facility] Elder Assistant 04/18/24 [facility] 04/18/24 documented as of this encounter
--- OUTSIDE RECORDS SUMMARY | 2024-06-30 21:16 | XMS_ITS | Encounter Summary ---
Author Organization [facility] Address [address] [place] [address] Care Team Providers Care Corporate Strategist Name Role Phone Misa Pringle M.D. Primary Care Provider +1- [phone] Reason for Visit * Reason Onset Date Comments OSM - Outside Materials 06/15/2024 Encounter Details Date Type Department Care Team (Latest Contact Info) Description 06/15/2024 Clinical Communication Department of Family Medicine, [facility], in [address] [phone] Misa Pringle M.D. [address] [place] [phone] OSM - Outside Materials Social History Tobacco Use Types Packs/Day Years Used Date Smoking Tobacco: Former Cigarettes 0.8 13.9 0 03/02/1965 - 01/30/1979 Smokeless Tobacco: Never Alcohol Use Standard Drinks/Week Comments Not Currently 0 (1 standard drink = 0.6 oz pur e alcohol) [facility] Utilities Answer Date Recorded In [...] How often do you attend chur or denominational services? Patient declined 07/18/2022 Do you belong to any clubs o r organizations such as amish groups, unions, fraternal or athletic [...] Answer Date Recorded PHQ-2 Score 0 04/18/2024 [facility] [place] of Occupat ional Health - Occupational Stress [...] your living situation today? I have a [facility] place to live 02/23/2024 Education Answer Date Recorded What is the highest level of school you have completed or the highest degree you have received? 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 [address] [place] [phone] documented as of this encounter Procedures Procedure Name Priority Date/Time Associated Diagnosis Comments EXTM ALANINE AMINOTRANSFERASE (ALT), S/P Routine 06/14/2024 9:05 AM CDT EXTM ASPARTATE AMINOTRANSFERASE (AST), S/P Routine 06/14/2024 9:05 AM CDT EXTP BASIC METABOLIC PANEL, BLOOD Routine 06/14/2024 9:05 AM CDT EXTP COMPLETE BLOOD COUNT, BLOOD Routine 06/14/2024 9:05 AM CDT EXTM ALBUMIN, S/P Routine 06/14/2024 documented in this encounter Results * EXT Complete Blood Count, Blood (06/14/2024 9:05 AM CDT) EXT Hemoglobin 13.6 13.5 - 17.5 gm/dL OTHER (SPECIFY IN HEAD HOLDER) EXT Hematocrit 41.1 37.0 - 53.0 % OTHER (SPECIFY IN HEAD HOLDER) EXT RBC 4.48 4.30 - 5.90 m/uL OTHER (SPECIFY IN HEAD HOLDER) EXT MCV 92 80 - 100 fL OTHER (SPECIFY IN HEAD HOLDER) EXT RDW 11.8 11.5 - 15.5 % OTHER (SPECIFY IN HEAD HOLDER) EXT WBC 4.66 4.50 - 11.0 K/uL OTHER (SPECIFY IN HEAD HOLDER) EXT Neutrophils 71.6 42.0 - 72.0 % OTHER (SPECIFY IN HEAD HOLDER) EXT Lymphocytes 12.2 20 - 44 % OTHE R (SPECIFY IN HEAD HOLDER) EXT Monocytes 0.50 0.0 - 0.90 K/uL OTHER (SPECIFY IN HEAD HOLDER) EXT Eosinophils 4.5 0.0 - 7.0 % OTHER (SPECIFY IN HEAD HOLDER) EXT Basophils 0.6 0.0 - 3.0 % OTHER (SPECIFY IN HEAD HOLDER) EXT Platelet Count 232 140 - 440 K//uL OTHER (SPECIFY IN HEAD HOLDER) Blood (Blood, Venous) 06/14/2024 9:05 AM CDT Carolynn Romero M.D. LAB BLOOD NON ADD-ON Final R esult Performing Organization Address City/[facility] de Phone Number OTHER (SPECIFY IN HEAD HOLDER) N/A * EXT AST (Aspartate Aminotransferase) (06/14/2024 9:05 AM CDT) Pathologist [facility] EXT AST 29 12 - 35 U/L OTHER (S PECIFY IN HEAD HOLDER) Blood (Blood, Venous) 06/14/2024 9:05 AM CDT Carolynn Romero M.D. LAB BLOOD ADD-ON Final Resul t Performing Organization Address [facility] de Phone Number OTHER (SPECIFY IN HEAD HOLDER) N/A * EXT ALT (Alanine Aminotransferase) (06/14/2024 9:05 AM CDT) Pathologist [facility] EXT ALT 28 4 - 50 U/L OTHER (SP ECIFY IN HEAD HOLDER) Blood (Blood, Venous) 06/14/2024 9:05 AM CDT Carolynn Romero M.D. LAB BLOOD ADD-ON Final Resul t Performing Organization Address [facility] de Phone Number OTHER (SPECIFY IN HEAD HOLDER) N/A * (ABNORMAL) EXT Basic Metabolic Panel, Blood (06/14/2024 9:05 AM CDT) Pathologist [facility] EXT Sodium 141 135 - 149 OTHER (SP ECIFY IN HEAD HOLDER) EXT Potassium 3.0 3.6 - 5.1 OTHER (SPECIFY IN HEAD HOLDER) EXT Chloride 101 96 - 114 OTHER ( SPECIFY IN HEAD HOLDER) EXT CO2 30 20 - 32 OTHER (SPE CIFY IN HEAD HOLDER) EXT Anion Gap 10 7 - 15 OTHER (SPECIFY IN HEAD HOLDER) EXT BUN (Blood Urea Nitrogen) 18 7 - 30 OTHER (SPECIF Y IN HEAD HOLDER) EXT Creatinine 1.2 0.5 - 1.5 OTHER (SPECIFY IN HEAD HOLDER) EXT Estimated GFR (eGFR) 63 OTHER (SPECIFY IN HEAD HOLDER) EXT Calcium, Total 9.3 8.4 - 10.6 OTHER (SPECIFY IN HEAD HOLDER) EXT Glucose 253 60 - 115 OTHER (S PECIFY IN HEAD HOLDER) Blood (Blood, Venous) 06/14/2024 9:05 AM CDT Carolynn Romero M.D. LAB BLOOD NON ADD-ON Final R esult Performing Organization Address City/[facility]/ZIP Co de Phone Number OTHER (SPECIFY IN HEAD HOLDER) N/A * EXT Albumin (06/14/2024) EXT Albumin 4.4 3.3 - 5.0 OTHER (S PECIFY IN HEAD HOLDER) Blood (Blood, Venous) 06/14/2024 Historical Provider LAB BLOOD ADD-ON Final Resul t Performing Organization Address City/[facility] Co de Phone Number OTHER (SPECIFY IN HEAD HOLDER) N/A documented in this encounter Visit Diagnoses Not on filedocumented in this encounter Care Teams Corporate Strategist Relationship Specialty Start Date End Date Misa Pringle M.D. [address] [place] [phone] PCP - General Family Medicine 02/25/24 [facility] Rolling Mill Operator Helper 04/18/24 [facility] 04/18/24 documented as of this encounter
[2024-06-30 21:24] VITALS: BP 183/91; PULSE 68; RESP 16; TEMP 37.4; O2SAT 94; BMI 29.6
[2024-06-30 21:40] LABS: Appearance Urine Cloudy (Clear); Bilirubin Urine Negative (Negative); Blood Urine 3+ (Negative); Color Urine Red (Yellow); Glucose Urine 2+ (Negative); Ketones Urine Negative (Negative); Leukocyte Esterase Urine Negative (Negative); Nitrite Urine Negative (Negative); Protein Urine 2+ (Negative); Specific Gravity Urine 1.015 (1.000-1.030); pH Urine 7.5 (5.0-8.5)
--- NOTE | 2024-06-30 21:44 | ED.MALEGU ---
HPI - Male Genitourinary General Chief complaint: Urogenital Problems, Male Stated complaint: Urinating blood Time Seen by Provider: 06/30/24 21:35 History of Present Illness HPI Narrative: This 73-year-old male comes in reporting some gross hematuria that happened about 4 hours prior to arrival here. He states that there was a dark small clot that passed and then there was reddish tinged urine thereafter. He does not report any symptoms of dysuria otherwise and states that he feels normal. He was in the hospital about 4 months ago and at that time had a catheter and there was some reddish tinged urine after the catheter was removed. He is not on any anticoagulants except for a baby aspirin daily. Related Data Home Medications ?Medication ?Instructions ?Recorded ?Confirmed aspirin 81 mg tablet,delayed 81 mg PO .pm 11/11/21 06/30/24 release calcium carbonate 1,200 mg PO DAILY 12/13/21 06/30/24 cholecalciferol (vitamin D3) 25 1,000 unit PO DAILY 12/13/21 06/30/24 mcg (1,000 unit) tablet lancets (Accu-Chek Fastclix Lancet 12/13/21 02/18/24 Drum) furosemide 40 mg tablet 40 mg PO DAILY 06/14/24 06/30/24 lisinopril 40 mg tablet 20 mg PO QDAY 06/14/24 06/30/24 prednisolone acetate 1 % eye 1 drp ophthalmic (eye) .qd 06/14/24 06/30/24 drops,suspension Previous Rx's ?Medication ?Instructions ?Recorded amlodipine 10 mg tablet 10 mg PO .q24 #90 tabs 07/30/23 rosuvastatin 10 mg tablet 10 mg PO DAILY #90 tabs 10/05/23 metformin 500 mg tablet,extended 500 mg PO QDAY #90 tabs 04/06/24 release 24 hr metoprolol tartrate 50 mg tablet 50 mg PO BID #180 tabs 05/31/24 Allergies Allergy/AdvReac Type Severity Reaction Status Date / Time No Known Allergies Allergy Verified 06/14/24 10:14 Review of Systems Status of ROS: Reports: 10 or more systems reviewed and unremarkable except as noted in History and below Narrative: Constitutional: No fevers, no weight gain or loss. Eyes: No discharge. No vision changes. HENT: No congestion, no sore throat, no ear pain. Cardiovascular: No chest pain, no palpitations. Respiratory: No shortness of breath, no wheezes, no cough. Gastrointestinal: No abdominal pain, no vomiting, no diarrhea. Genitourinary: No dysuria. Gross hematuria a episode as described above. Musculoskeletal: Normal range of motion. Skin: No rashes, no pruritis. Neurological: No dizziness, weakness, sensory change, speech change. Endo/Heme/Allergies: No bruising or bleeding. No polydipsia. Pysch: no suicidality, no anxiety, no insomnia. All other systems reviewed and are negative. [facility] Medical History Colon polyps ?K63.5 - Polyp of colon (ICD-10) Health care directive on file ?Z78.9 - Other specified health status (ICD-10) Medicare annual wellness visit, subsequent ?Z00.00 - Encounter for general adult medical examination without abnormal findings (ICD-10) Arthritis of carpometacarpal (CMC) joint of both thumbs ?M18.0 - Bilateral primary osteoarthritis of first carpometacarpal joints (ICD-10) Diabetes ?E11.9 - Type 2 diabetes mellitus without complications (ICD-10) Prostate cancer ?C61 - Malignant neoplasm of prostate (ICD-10) Hypokalemia ?E87.6 - Hypokalemia (ICD-10) Hypertension ?I10 - Essential (primary) hypertension (ICD-10) Flexor tenosynovitis of finger ?M65.9 - Synovitis and tenosynovitis, unspecified (ICD-10) Encounter for routine history and physical examination of adult ?Z00.00 - Encounter for general adult medical examination without abnormal findings (ICD-10) Surgical History Status post cholecystectomy ?Z90.49 - Acquired absence of other specified parts of digestive tract (ICD-10) History of prostatectomy ?Z90.79 - Acquired absence of other genital organ(s) (ICD-10) History of colonoscopy ?Z98.890 - Other specified postprocedural states (ICD-10) Family History Father Colon cancer Grandfather Prostate cancer Diabetes High blood pressure Social History Previous occupational history: 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 Smoking Status: Former smoker Do you use any of these nicotine containing products: None Non-prescribed substance use: denies use Exam Narrative: Exam Narrative: Constitutional: Well-developed, well-nourished, no acute distress. HEENT: Normocephalic, atraumatic. Neck: Normal range of motion. Nontender. Supple. Heart: Intact distal pulses. Lungs: No chest discomfort. No wheezes, rhonchi, or rales. Abdomen: Nontender. Back: Normal range of motion. Extremities: Normal range of motion. No injury. Skin: Intact. No rash. Warm. No erythema or pallor. Neurologic: No altered sensation. No weakness. Alert and oriented. Psychiatric: No suicidality. No anxiety or depression. No insomnia. Nursing notes and vitals signs are reviewed. Const: Vital Signs, click to edit/add: Vital Signs - 24 hr 06/30/24 21:24 Temperature 99.3 F Pulse Rate [Pulse Oximeter] 68 Respiratory Rate 16 Blood Pressure [Ri ght Upper Arm] 183/91 H Pulse Oximetry 94 Oxygen Delivery Me thod Room Air Course Vital Signs Vital signs: Initial Vital Signs Temperature 99.3 F 06/30/24 21:24 Temperature Source Temporal Artery Scan 06/30/24 21:24 Pulse Rate 68 06/30/24 21:24 Respiratory Rate 16 06/30/24 21:24 Blood Pressure 183/91 H 06/30/24 21:24 Blood Pressure Mean 121 H 06/30/24 21:24 Blood Pressure Position Sitting 06/30/24 21:24 Pulse Oximetry 94 06/30/24 21:24 Oxygen Delivery Method Room Air 06/30/24 21:24 Vital Signs Temperature 99.3 F 06/30/24 21:24 Pulse Rate 68 06/30/24 21:24 Respiratory Rate 16 06/30/24 21:24 Blood Pressure 183/91 H 06/30/24 21:24 Pulse Oximetry 94 06/30/24 21:24 Oxygen Delivery Method Room Air 06/30/24 21:24 Temperature 99.3 F 06/30/24 21:24 Pulse Rate 68 06/30/24 21:24 Respiratory Rate 16 06/30/24 21:24 Blood Pressure 183/91 H 06/30/24 21:24 Pulse Oximetry 94 06/30/24 21:24 Oxygen Delivery Method Room Air 06/30/24 21:24 MDM - Male Genitourinary MDM Narrative Medical decision making narrative: This patient comes in reporting episode of hematuria as described above. Urinalysis today shows hematuria but no sign of infection. He does have some protein also in his urine. He states that he has an appointment next week with the specialist in the [facility] to manage hypertension. He does have diabetes. I did check his blood and electrolytes and kidney function returned with normal results. He does not appear to have a nephrotic or nephritic syndrome. I advised him to take plenty of fluids and follow up with his primary physician. He should return if worsening symptoms occur or if unable to void urine. Lab Data Labs: Lab Results 06/30/24 06/30/24 Range/Units 21:33 22:28 WBC 4.68 (4.50-11.00) K/uL RBC 4.55 (4.30-5.90) m/uL Hgb 13.8 (13.5-17.5) gm/dL Hct 41.4 (37.0-53.0) % MCV 91 (80-100) fL MCH 30 (26-34) pg MCHC 33 (32-36) gm/dL RDW Coeff of Ashley 12.1 (11.5-15.5) % Plt Count 244 (140-440) K/uL Neut % (Auto) 65.9 (42.0-72.0) % Lymph % (Auto) 14.7 L (20-44) % [place] % (Auto) 12.4 H (0.0-11.0) % Eos % (Auto) 5.1 (0.0-7.0) % Baso % (Auto) 0.6 (0.0-3.0) % Neut # (Auto) 3.08 (1.7-7.0) K/uL Lymph # (Auto) 0.70 L (0.90-2.90) K/uL [place] # (Auto) 0.60 (0.00-0.90) K/UL Eos # (Auto) 0.24 (0.00-0.50) K/uL Baso # (Auto) 0.03 (0.00-0.30) K/uL Abs Immat Gran (auto) 0.06 (0.00-0.30) K/uL Imm/Tot Granulo (auto) 1.3 % Sodium 144 (135-149) mmol/L Potassium 3.0 L (3.6-5.1) mmol/L Chloride 106 (96-114) mmol/L Carbon Dioxide 30 (20-32) mmol/L Anion Gap 8 (7-15) mEq/L BUN 20 (7-30) mg/dL Creatinine 1.0 (0.5-1.5) mg/dL Estimated Creat Clear 62.70 Estimated GFR 79 ml/min Glucose 298 H (60-115) mg/dL Calcium 9.5 (8.4-10.6) mg/dL Urine Color Red A (Yellow) Urine Appearance Cloudy A (Clear) Urine pH 7.5 (5.0-8.5) Ur Specific [place] 1.015 (1.000-1.030) Urine Protein 2+ A (Negative) Urine Glucose (UA) 2+ A (Negative) Urine Ketones Negative (Negative) Urine Blood 3+ A (Negative) Urine Nitrite Negative (Negative) Urine Bilirubin Negative (Negative) Urine Urobilinogen 1.0 (0.2-1.0) Ur Leukocyte Esterase Negative (Negative) Urine RBC 50-100 A (0-2) Urine WBC 2-5 (0-5) Ur Squamous Epith Cells Few (None-Few) Urine Bacteria Few A (None) Discharge Plan Discharge Clinical Impression: Hematuria Patient Disposition: Home, Self-Care Condition: Stable Additional Instructions: Take plenty of fluids. Continue current plans. Follow up with MD next week as scheduled. Return if worsening. Prescriptions: No Action aspirin 81 mg tablet,delayed release (DR/EC) 81 mg PO .pm amlodipine 10 mg tablet 10 mg PO .q24 Qty: 90 3RF lisinopril 40 mg tablet 20 mg PO QDAY furosemide 40 mg tablet 40 mg PO DAILY prednisolone acetate 1 % drops,suspension 1 drp ophthalmic (eye) .qd (DME) lancets [Accu-Chek Fastclix Lancet Drum] Misc See Rx Instructions .Route Rx Instructions: As directed calcium carbonate 600 mg calcium (1,500 mg) tablet 1,200 mg PO DAILY cholecalciferol (vitamin D3) 25 mcg (1,000 unit) tablet 1,000 unit PO DAILY rosuvastatin 10 mg tablet 10 mg PO DAILY Qty: 90 3RF metformin 500 mg tablet extended release 24 hr 500 mg PO QDAY Qty: 90 0RF metoprolol tartrate 50 mg tablet 50 mg PO BID Qty: 180 1RF Follow Up/Referrals: Misa Pringle MD [Primary Care Provider] - Stand Alone Forms: [employer] Info Instructions
[2024-06-30 22:03] LABS: Bacteria Urine Few; RBC Urine 50-100 (0-2); Squamous Epithelial Cell Urine Few (None-Few)
--- NOTE | 2024-06-30 22:09 | ED.NURSE ---
pt given water, ok'd my MD
--- OUTSIDE RECORDS SUMMARY | 2024-06-30 22:09 | XMS_ITS | Encounter Summary ---
Author Organization [facility] Address [address] [place] [address] Care Team Providers Care Senior Oracle Database Administrator Name Role Phone Misa Pringle M.D. Primary Care Provider +1- [phone] Encounter Details Date Type Department Care Team (Latest Contact Info) Description 05/16/2024 Results Follow-Up Division of Nephrology and Hypertension in [place], [place] [address] [place] [address] David Ross M.D. [address] [place] [address] Renal Function Panel, Uric Acid Social History Tobacco Use Types Packs/Day Years Used Date Smoking Tobacco: Former Cigarettes 0.8 13.9 0 03/02/1965 - 01/30/1979 Smokeless Tobacco: Never Alcohol Use Standard Drinks/Week Comments Not Currently 0 (1 standard drink = 0.6 oz pur e alcohol) [facility] Utilities Answer Date Recorded In the past [...] How often do you attend chur or sabianism services? Patient declined 07/18/2022 Do you belong to any clubs o r organizations such as orthodoxy groups, unions, fraternal or athletic [...] Answer Date Recorded PHQ-2 Score 0 04/18/2024 [facility] [place] of Occupat ional Health - Occupational Stress [...] a [facility] place to live 02/23/2024 Education Answer Date Recorded What is the highest level of school you have completed or the highest degree you have received? 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 [address] [place] [phone] documented as of this encounter Visit Diagnoses Not on filedocumented in this encounter Care Teams Senior Oracle Database Administrator Relationship Specialty Start Date End Date Misa Pringle M.D. [address] [place] [phone] PCP - General Family Medicine 02/25/24 [facility] Legal Internship 04/18/24 [facility] 04/18/24 documented as of this encounter
--- OUTSIDE RECORDS SUMMARY | 2024-06-30 22:09 | XMS_ITS | Encounter Summary ---
Author Organization [facility] Address [address] [place] [address] Care Team Providers Care Sales Team Member Name Role Phone Misa Pringle M.D. Primary Care Provider +1- [phone] Reason for Visit * Reason Onset Date Comments OSM - Outside Materials 06/15/2024 Encounter Details Date Type Department Care Team (Latest Contact Info) Description 06/15/2024 Clinical Communication Department of Family Medicine, [facility], in [address] [phone] Misa Pringle M.D. [address] [place] [phone] OSM - Outside Materials Social History Tobacco Use Types Packs/Day Years Used Date Smoking Tobacco: Former Cigarettes 0.8 13.9 0 03/02/1965 - 01/30/1979 Smokeless Tobacco: Never Alcohol Use Standard Drinks/Week Comments Not Currently 0 (1 standard drink = 0.6 oz pur e alcohol) [facility] Utilities Answer Date Recorded In the [...] How often do you attend chur or anglican services? Patient declined 07/18/2022 Do you belong to any clubs o r organizations such as gnosticism groups, unions, fraternal or athletic [...] Answer Date Recorded PHQ-2 Score 0 04/18/2024 [facility] [place] of Occupat ional Health - Occupational Stress [...] your living situation today? I have a [facility] place to live 02/23/2024 Education Answer Date Recorded What is the highest level of school you have completed or the highest degree you have received? 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 [address] [place] [address] documented as of this encounter Procedures Procedure [...] 13.5 - 17.5 gm/dL OTHER (SPECIFY IN FUEL OIL CLERK) EXT Hematocrit 41.1 37.0 - 53.0 % OTHER (SPECIFY IN FUEL OIL CLERK) EXT RBC 4.48 4.30 - 5.90 m/uL OTHER (SPECIFY IN FUEL OIL CLERK) EXT MCV 92 80 - 100 fL OTHER (SPECIFY IN FUEL OIL CLERK) EXT RDW 11.8 11.5 - 15.5 % OTHER (SPECIFY IN FUEL OIL CLERK) EXT WBC 4.66 4.50 - 11.0 K/uL OTHER (SPECIFY IN FUEL OIL CLERK) EXT Neutrophils 71.6 42.0 - 72.0 % OTHER (SPECIFY IN FUEL OIL CLERK) EXT Lymphocytes 12.2 20 - 44 % OTHE R (SPECIFY IN FUEL OIL CLERK) EXT Monocytes 0.50 0.0 - 0.90 K/uL OTHER (SPECIFY IN FUEL OIL CLERK) EXT Eosinophils 4.5 0.0 - 7.0 % OTHER (SPECIFY IN FUEL OIL CLERK) EXT Basophils 0.6 0.0 - 3.0 % OTHER (SPECIFY IN FUEL OIL CLERK) EXT Platelet Count 232 140 - 440 K//uL OTHER (SPECIFY IN FUEL OIL CLERK) Blood (Blood, Venous) 06/14/2024 9:05 AM CDT Carolynn Romero M.D. LAB BLOOD NON ADD-ON Final R esult Performing Organization Address City/[facility] de Phone Number OTHER (SPECIFY IN FUEL OIL CLERK) N/A * EXT AST (Aspartate Aminotransferase) (06/14/2024 9:05 AM CDT) Pathologist [facility] EXT AST 29 12 - 35 U/L OTHER (S PECIFY IN FUEL OIL CLERK) Blood (Blood, Venous) 06/14/2024 9:05 AM CDT Carolynn Romero M.D. LAB BLOOD ADD-ON Final Resul t Performing Organization Address [facility] de Phone Number OTHER (SPECIFY IN FUEL OIL CLERK) N/A * EXT ALT (Alanine Aminotransferase) (06/14/2024 9:05 AM CDT) Pathologist [facility] EXT ALT 28 4 - 50 U/L OTHER (SP ECIFY IN FUEL OIL CLERK) Blood (Blood, Venous) 06/14/2024 9:05 AM CDT Carolynn Romero M.D. LAB BLOOD ADD-ON Final Resul t Performing Organization Address [facility] de Phone Number OTHER (SPECIFY IN FUEL OIL CLERK) N/A * (ABNORMAL) EXT Basic Metabolic Panel, Blood (06/14/2024 9:05 AM CDT) Pathologist [facility] EXT Sodium 141 135 - 149 OTHER (SP ECIFY IN FUEL OIL CLERK) EXT Potassium 3.0 3.6 - 5.1 OTHER (SPECIFY IN FUEL OIL CLERK) EXT Chloride 101 96 - 114 OTHER ( SPECIFY IN FUEL OIL CLERK) EXT CO2 30 20 - 32 OTHER (SPE CIFY IN FUEL OIL CLERK) EXT Anion Gap 10 7 - 15 OTHER (SPECIFY IN FUEL OIL CLERK) EXT BUN (Blood Urea Nitrogen) 18 7 - 30 OTHER (SPECIF Y IN FUEL OIL CLERK) EXT Creatinine 1.2 0.5 - 1.5 OTHER (SPECIFY IN FUEL OIL CLERK) EXT Estimated GFR (eGFR) 63 OTHER (SPECIFY IN FUEL OIL CLERK) EXT Calcium, Total 9.3 8.4 - 10.6 OTHER (SPECIFY IN FUEL OIL CLERK) EXT Glucose 253 60 - 115 OTHER (S PECIFY IN FUEL OIL CLERK) Blood (Blood, Venous) 06/14/2024 9:05 AM CDT Carolynn Romero M.D. LAB BLOOD NON ADD-ON Final R esult Performing Organization Address City/[facility]/ZIP Co de Phone Number OTHER (SPECIFY IN FUEL OIL CLERK) N/A * EXT Albumin (06/14/2024) EXT Albumin 4.4 3.3 - 5.0 OTHER (S PECIFY IN FUEL OIL CLERK) Blood (Blood, Venous) 06/14/2024 Historical Provider LAB BLOOD ADD-ON Final Resul t Performing Organization Address City/[facility] Co de Phone Number OTHER (SPECIFY IN FUEL OIL CLERK) N/A documented in this encounter Visit Diagnoses Not on filedocumented in this encounter Care Teams Sales Team Member Relationship Specialty Start Date End Date Misa Pringle M.D. [address] [place] [phone] PCP - General Family Medicine 02/25/24 [facility] Fuel Management Handler 04/18/24 [facility] 04/18/24 documented as of this encounter
--- OUTSIDE RECORDS SUMMARY | 2024-06-30 22:09 | XMS_ITS | Encounter Summary ---
Author Organization [facility] Address [address] [place] [address] Care Team Providers Care Child Development Director Name Role Phone Misa Pringle M.D. Primary Care Provider +1- [phone] Encounter Details Date Type Department Care Team (Latest Contact Info) Description 05/16/2024 11:00 AM CDT - 05/16/2024 11:59 PM CDT Hospital Encounter Department of Laboratory Medicine in [address] [phone] David Ross M.D. [address] [place] [address] Chronic Kidney Disease (CKD), Stage 3a Glomerular [...] drink = 0.6 oz pur e alcohol) [facility] Utilities Answer Date Recorded In the past 12 months has [employer], gas, oil, or water [employer] threatened to shut off services in your [...] week 07/18/2022 How often do you attend [facility] or confucianism services? Patient declined 07/18/2022 Do you belong [...] Answer Date Recorded PHQ-2 Score 0 04/18/2024 [facility] of Occupat ional Health - Occupational [...] living situation today? I have a [facility] place to live 02/23/2024 Education Answer Date Recorded What is the highest level of school you have completed or the highest degree you have received? 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 [address] [place] [address] documented as of this encounter Procedures Procedure [...] ADD-ON Final Resu lt Performing Organization Address [facility]/State/ZIP Co de Phone Number [facility] [address] [place] [address], [facility] CNFL [facility] [place] [address] * (ABNORMAL) Renal Function Panel (05/16/2024 11:21 [...] M.D. LAB BLOOD ADD-ON Final Resu lt [facility] [address] [place] [address], [facility] CNFL [facility] [place] [facility] in [address] [address] documented in this encounter Visit Diagnoses Diagnosis Chronic Kidney Disease (CKD), Stage 3a Glomerular Filtration Rate (GFR) 45 To 59 (HCC) Hypertensive Chronic Kidney Disease With Stage 1 Through Stage 4 Chronic Kidney Disease, Or Unspecified Chronic Kidney Disease documented in this encounter Care Teams Child Development Director Relationship Specialty Start Date End Date Misa Pringle M.D. [address] [place] [phone] PCP - General Family Medicine 02/25/24 [facility] Sports Writer 04/18/24 [facility] 04/18/24 documented as of this encounter
--- OUTSIDE RECORDS SUMMARY | 2024-06-30 22:09 | XMS_ITS | Encounter Summary ---
Author Organization [facility] Address [address] [place] [address] Care Team Providers Care Explosives Detonator Name Role Phone Misa Pringle M.D. Primary Care Provider +1- [phone] Encounter Details Date Type Department Care Team (Late st Contact Info) Description 05/12/2024 Orders Only Division of Nephrology and Hypertension in [place], [place] [address] [place] [phone] David Ross M.D. [address] [place] [address] Social History Tobacco Use Types Packs/Day Years Used Date Smoking Tobacco: Former Cigarettes 0.8 13.9 0 03/02/1965 - 01/30/1979 Smokeless Tobacco: Never Alcohol Use Standard Drinks/Week Comments Not Currently 0 (1 standard drink = 0.6 oz pur e alcohol) [facility] Utilities Answer Date Recorded In the [...] often do you attend [facility] or quaker services? Patient declined 07/18/2022 Do you belong to any clubs o r organizations such as catholic groups, unions, fraternal or athletic [...] Answer Date Recorded PHQ-2 Score 0 04/18/2024 [facility] of Occupat ional Health - Occupational Stress [...] your living situation today? I have a [facility] place to live 02/23/2024 Education Answer Date Recorded What is the highest level of school you have completed or the highest degree you have received? 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 [address] [place] [address] documented as of this encounter Visit Diagnoses Not on filedocumented in this encounter Care Teams Explosives Detonator Relationship Specialty Start Date End Date Misa Pringle M.D. [address] [place] [phone] PCP - General Family Medicine 02/25/24 [facility] Press Leader 04/18/24 [facility] 04/18/24 documented as of this encounter
--- OUTSIDE RECORDS SUMMARY | 2024-06-30 22:09 | XMS_ITS | Encounter Summary ---
Author Organization [facility] Address [address] [place] [address] Care Team Providers Care Certified Professional Ergonomist Name Role Phone Misa Pringle M.D. Primary Care Provider +1- [phone] Encounter Details Date Type Department Care Team (Late st Contact Info) Description 04/25/2024 Results Follow-Up Department of Family Medicine, [facility], in [address] [phone] Misa Pringle M.D. [address] [place] [phone] [employer] Screening Social History Tobacco Use Types Packs/Day Years Used Date Smoking Tobacco: Former Cigarettes 0.8 13.9 0 03/02/1965 - 01/30/1979 Smokeless Tobacco: Never Alcohol Use Standard Drinks/Week Comments Not Currently 0 (1 standard drink = 0.6 oz pur e alcohol) [facility] Utilities Answer Date Recorded In [...] How often do you attend chur or voodoo services? Patient declined 07/18/2022 Do you belong to any clubs o r organizations such as methodist groups, unions, fraternal or athletic [...] Answer Date Recorded PHQ-2 Score 0 04/18/2024 [facility] of Occupat ional Health - Occupational [...] living situation today? I have a [facility] place to live 02/23/2024 Education Answer Date Recorded What is the highest level of school you have completed or the highest degree you have received? 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 [address] [place] [address] documented as of this encounter Visit Diagnoses Not on filedocumented in this encounter Care Teams Certified Professional Ergonomist Relationship Specialty Start Date End Date Misa Pringle M.D. [address] [place] [phone] PCP - General Family Medicine 02/25/24 [facility] Chief Warden 04/18/24 [facility] 04/18/24 documented as of this encounter
--- OUTSIDE RECORDS SUMMARY | 2024-06-30 22:09 | XMS_ITS | Clinical Summary ---
Author Organization [facility] [facility] Address [address] [place] [address] Care Team Providers Care Wallcovering Texturer Name Role Phone Gilberto Cho MD Primary Care Provider [phone] Allergies No known active allergies Medications amLODIPine [...] on file Legal Sex Male 8:42 AM MELT SUPERINTENDANT Gender Identity Not on file Sexual Orientation [...] Associated Diagnosis Comments COLONOSCOPY 03/17/2017 11:19 AM MELT SUPERINTENDANT from Last 3 Months or Most Recently Relevant to Health Maintenance Results * COLONOSCOPY (03/17/2017 11:19 AM MELT SUPERINTENDANT) 03/17/2017 11:1 9 AM MELT SUPERINTENDANT Narrative Transcriptions Latrell Keith MD - 03/18/2017 [...] adequate candidate for conscious sedation. The [id number] was passed through the anus and advanced [...] reponse to care. [facility] and nursing [facility] for moderate sedation details. Total physician intraservice time was 18 minutes. Latrell Keith MD 03/17/2017 12:30:42 PM This report has been signed electronically. Note Initiated On: 03/17/2017 11:19 AM Procedure Code(s): --- Professional --- 10587, Colonoscopy, flexible; with removalof tumor(s), polyp(s), or other lesion(s) bysnare technique Diagnosis Code(s): --- Professional --- D12.0, Benign neoplasm of cecum D12.2, Benign neoplasm of ascending colon D12.5, Benign neoplasm of sigmoid colon Z86.010, Personal history of colonicpolyps K57.30, Diverticulosis of large intestine without perforation or abscess withoutbleeding CPT copyright 2016 [employer]. All rights reserved. The codes documented in this report are preliminary and upon house coordinator reviewmay be revised to meet current compliance requirements. Scope In: 12:08:02 PM Scope Withdrawal Time 0 hours 14 minutes 9 seconds Scope Out: 12:24:50 PM Latrell Keith MD PROCEDURE ORD Edited Re sult - Final from Last 3 Months or Most Recently Relevant to Health Maintenance Insurance [employer] [place] [address] Care Teams Wallcovering Texturer Relationship Specialty Start Date End Date Gilberto Cho MD PCP - General Family Practice 03/17/17
--- OUTSIDE RECORDS SUMMARY | 2024-06-30 22:09 | XMS_ITS | Encounter Summary ---
Author Organization [facility] Address [address] [place] [address] Care Team Providers Care Brim Welt Sewing Machine Operator Name Role Phone Misa Pringle M.D. Primary Care Provider [phone]- [phone] Encounter Details Date Type Department Care Team [...] Recorded In the past 12 months has [facility] [employer], gas, oil, or water [employer] threatened to shut off services in your [...] How often do you attend chur or episcopalian services? Patient declined 07/18/2022 Do you belong to any clubs o r organizations such as protestant groups, unions, fraternal or athletic [...] Answer Date Recorded PHQ-2 Score 0 01/21/2021 [facility] of Occupat ional Health - Occupational [...] your living situation today? I have a [facility] place to live 02/23/2024 Education Answer Date Recorded What is the highest level of school you have completed or the highest degree you have received? 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 [address] [place] [address] documented as of this encounter Visit Diagnoses Not on filedocumented in this encounter Additional Health Concerns Infection Onset Date Last Indicated Resolved Time COVID19 Pending 02/22/2024 02/22/2024 02/22/2024 1 2:42 PM ANSWERING SERVICE TELEPHONE OPERATOR documented as of this encounter Care Teams Brim Welt Sewing Machine Operator Relationship Specialty Start Date End Date Misa Pringle M.D. [address] [phone] PCP - General Family Medicine 02/25/24 [facility] Immigration Inspector 04/18/24 [facility] 04/18/24 documented as of this encounter
--- OUTSIDE RECORDS SUMMARY | 2024-06-30 22:09 | XMS_ITS | Encounter Summary ---
Author Organization [facility] Address [address] [place] [address] Care Team Providers Care Gaming Commissioner Name Role Phone Misa Pringle M.D. Primary Care Provider [phone]- [phone] Encounter Details Date Type Department Care Team (Late st Contact Info) Description 06/27/2024 Results Follow-Up Department of Family Medicine, [facility], in [address] [phone] Char Schaeffer M.D. [address] [place] [phone] Creatinine with Estimated GFR, Potassium, Sodium Social History Tobacco Use Types Packs/Day Years Used Date Smoking Tobacco: Former Cigarettes 0.8 13.9 0 03/02/1965 - 01/30/1979 Smokeless Tobacco: Never Alcohol Use Standard Drinks/Week Comments Not Currently 0 (1 standard drink = 0.6 oz pur e alcohol) [facility] Utilities Answer Date Recorded In the past [...] How often do you attend chur or temple services? Patient declined 07/18/2022 Do you belong to any clubs o r organizations such as restoration groups, unions, fraternal or athletic [...] Answer Date Recorded PHQ-2 Score 0 04/18/2024 [facility] [place] of Occupat ional Health - Occupational Stress [...] your living situation today? I have a [facility] place to live 02/23/2024 Education Answer Date Recorded What is the highest level of school you have completed or the highest degree you have received? 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 [address] [place] [address] documented as of this encounter Visit Diagnoses Not on filedocumented in this encounter Care Teams Gaming Commissioner Relationship Specialty Start Date End Date Misa Pringle M.D. [address] [place] [phone] PCP - General Family Medicine 02/25/24 [facility] Truck Operator 04/18/24 [facility] 04/18/24 documented as of this encounter
--- OUTSIDE RECORDS SUMMARY | 2024-06-30 22:09 | XMS_ITS | Encounter Summary ---
Author Organization [facility] Address [address] [place] [address] Care Team Providers Care Bean Picker Name Role Phone Misa Pringle M.D. Primary Care Provider +1- [phone] Encounter Details Date Type Department Care Team (Latest Contact Info) Description 06/23/2024 12:30 PM CDT - 06/23/2024 11:59 PM CDT Hospital Encounter Department of Laboratory Medicine in [address] [phone] Char Schaeffer M.D. [address] [place] [phone] Hypertensive Chronic Kidney Disease With Stage 1 Through Stage 4 Chronic Kidney Disease, Or Unspecified Chronic Kidney Disease Discharge Disposition: Home or Self Care Social History Tobacco Use Types Packs/Day Years Used Date Smoking Tobacco: Former Cigarettes 0.8 13.9 0 03/02/1965 - 01/30/1979 Smokeless Tobacco: Never Alcohol Use Standard Drinks/Week Comments Not Currently 0 (1 standard drink = 0.6 oz pur e alcohol) [facility] Utilities Answer Date Recorded In the past 12 months has [facility] electric, gas, oil, or water company threatened [...] week 07/18/2022 How often do you attend [facility] or holiness services? Patient declined 07/18/2022 Do you belong to any clubs o r organizations such as tenriism groups, unions, fraternal or athletic [...] Answer Date Recorded PHQ-2 Score 0 04/18/[address] [facility] [place] of Occupat ional Health - Occupational Stress [...] your living situation today? I have a [facility] place to live 02/23/2024 Education Answer Date Recorded What is the highest level of school you have completed or the highest degree you have received? 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 [address] [place] [address] documented as of this encounter Procedures Procedure [...] Felipe M.D. LAB BLOOD ADD-ON Final Result [address] [address], [address] [address] * (ABNORMAL) Potassium (06/23/2024 12:46 PM CDT) Potassium, P 3.0(L) 3.6 - 5.2 mmol/L 06/23/2024 1:17 PM CDT CNFL Blood (Blood, Venous) 06/23/2024 12:46 PM CDT 06/23/2024 12:48 PM CDT us Char Felipe M.D. LAB BLOOD ADD-ON Final Result [address] [address], [address] [address] * Creatinine with Estimated GFR (06/23/2024 12:46 PM CDT) Creatinine 1.15 0.74 - 1.35 mg/dL 06/23/2024 1:17 PM CDT CNFL Estimated GFR (eGFR) 67 >=60 mL/min/BSA 06/23/2024 1:17 PM CDT CNFL Comment: Estimated GFR calculated using the 2020 CKD_EPI creatinine equation. Blood (Blood, Venous) 06/23/2024 12:46 PM CDT 06/23/2024 12:48 PM CDT Char Felipe M.D. LAB BLOOD ADD-ON Final Result [facility] [address] [place] [address], [facility] in [address] [address] documented in this encounter Visit Diagnoses Diagnosis Hypertensive Chronic Kidney Disease With Stage 1 Through Stage 4 Chronic Kidney Disease, Or Unspecified Chronic Kidney Disease documented in this encounter Care Teams Bean Picker Relationship Specialty Start Date End Date Misa Pringle M.D. [address] [place] [phone] PCP - General Family Medicine 02/25/24 [facility] Lumber Carrier Operator 04/18/24 [facility] 04/18/24 documented as of this encounter
--- OUTSIDE RECORDS SUMMARY | 2024-06-30 22:09 | XMS_ITS | Encounter Summary ---
Author Organization [facility] Address [address] [place] [address] Care Team Providers Care Hardboard Factory Worker Name Role Phone Misa Pringle M.D. Primary Care Provider +1- [phone] Reason for Visit * Reason Comments Nurse Visit BP check with home rusty ring * Outpatient (Routine) - Closed Specialty Diagnoses / Procedures Referred By Bhakti ingram Referred To Contact Char Ventura M.D. [address] [place] [phone] Phone: tel: fax: [facility] Region Referral ID Status Reason Start Date Expiration Date Visits Re quested Visits Authorized [id number] Closed 06/07/2024 12/07/2025 1 1 Encounter Details Date Type Department Care Team (Late st Contact Info) Description 06/23/2024 1:00 PM CDT Nurse Only Department of Family Medicine, [facility], in [address] [phone] Char Ventura M.D. [address] [place] [phone] Angie Grey, L.P.N. Nurse Visit (BP check with home device) Discharge Disposition: Home or Self Care Social History Tobacco Use Types Packs/Day Years Used Date Smoking Tobacco: Former Cigarettes 0.8 13.9 0 03/02/1965 - 01/30/1979 Smokeless Tobacco: Never Alcohol Use Standard Drinks/Week Comments Not Currently 0 (1 standard drink = 0.6 oz pur e alcohol) [facility] Utilities Answer Date Recorded In the past 12 months has e [employer], gas, oil, or water [facility] threatened to shut off services in your [...] week 07/18/2022 How often do you attend [facility] or evangelical services? Patient declined 07/18/2022 Do you belong to any clubs o r organizations such as caodaism groups, unions, fraternal or athletic [...] Answer Date Recorded PHQ-2 Score 0 04/18/2024 [facility] - Occupational Stress Questionnaire Answer [...] your living situation today? I have a [facility] place to live 02/23/2024 Education Answer Date Recorded What is the highest level of school you have completed or the highest degree you have received? 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 [address] [place] [phone] documented as of this encounter Visit Diagnoses Diagnosis Diabetes Mellitus Type 2 (HCC)- Primary documented in this encounter Care Teams Hardboard Factory Worker Relationship Specialty Start Date End Date Misa Pringle M.D. [address] [place] [phone] PCP - General Family Medicine 02/25/24 [facility] Chemical Weigher 04/18/24 [facility] 04/18/24 documented as of this encounter
--- OUTSIDE RECORDS SUMMARY | 2024-06-30 22:09 | XMS_ITS | Encounter Summary ---
Author Organization [facility] Address [address] [place] [address] Care Team Providers Care [employer] Programmer Name Role Phone Misa Pringle M.D. Primary Care Provider [phone]- [phone] Reason for Visit * Reason Onset Date Comments Med list 06/14/2024 Encounter Details Date Type Department Care Team (Late st Contact Info) Description 06/14/2024 Clinical Communication Department of Family Medicine, [facility], in [address] [phone] Misa Pringle M.D. [address] [place] [address] [phone] Med list Social History Tobacco Use Types Packs/Day Years Used Date Smoking Tobacco: Former Cigarettes 0.8 13.9 0 03/02/1965 - 01/30/1979 Smokeless Tobacco: Never Alcohol Use Standard Drinks/Week Comments Not Currently 0 (1 standard drink = 0.6 oz pur e alcohol) [facility] Utilities Answer Date Recorded In [...] Score 0 04/18/2024 [facility] of Occupat ional Health - Occupational Stress [...] your living situation today? I have a [facility] place to live 02/23/2024 Education Answer Date Recorded What is the highest level of school you have completed or the highest degree you have received? Associate degree: occupational, technical, or vocational program 07/18/2022 Sex and Gender Information Value Date Recorded Sex Assigned at Male 06/27/2021 1:28 PM CDT Legal Sex Male 8:58 PM PREDICTIVE MAINTENANCE TECHNICIAN Gender Identity Male 06/27/2021 1:28 PM CDT Sexual Orientation Straight 06/27/2021 1: 28 PM CDT documented as of this encounter Miscellaneous Notes * Telephone Encounter - Xochitl Norwood RAlvarezN. - 06/15/2024 2:58 PM CDT Lab results faxed over from [facility] and [facility]. Results entered into EHR. * Telephone Encounter - Xochitl Norwood R.N. - 06/14/2024 3:37 PM CDT Scanned the med list from [facility]. Per visit on 06/07/24 patient is not taking potassium and it was noted by provider that potassium levels had been high due to medication interactions. documented in this encounter Plan of Treatment Upcoming Encounters Date Type Department Care Team (Late st Contact Info) Description 07/07/2024 2:30 PM CDT Office Visit Division of Nephrology and Hypertension in [place], [place] [address] [place] [phone] David Ross M.D. [address] [place] [phone] documented as of this encounter Visit Diagnoses Not on filedocumented in this encounter Care Teams [employer] Programmer Relationship Specialty Start Date End Date Misa Pringle M.D. [address] [place] [address] [phone] PCP - General Family Medicine 02/25/24 [facility] Mr Teacher 04/18/24 [facility] 04/18/24 documented as of this encounter
--- OUTSIDE RECORDS SUMMARY | 2024-06-30 22:10 | XMS_ITS | Encounter Summary ---
Author Organization [facility] Address [address] [place] [address] Care Team Providers Care Color Corrector Name Role Phone Misa Pringle M.D. Primary Care Provider [phone]- [phone] Reason for Referral * Outpatient (Routine) - Closed Specialty Diagnoses / Procedures Referred By Bhakti ingram Referred To Contact Char Schaeffer M.D. [address] [place] [phone] Phone: tel: fax: [facility] Region Referral ID Status Reason Start Date Expiration Date Visits Re quested Visits Authorized [id number] Closed 06/07/2024 12/07/2025 1 1 Reason for Visit * Reason Comments Pre-op Exam Eye surgery 06/10 and 06/20, [facility]] no concerns * Appointment Request (Routine) - Closed Specialty Diagnoses / Procedures Referred By Bhakti ingram Referred To Contact Family Medicine Referral ID Status Reason Start Date Expiration Date Visits Re quested Visits Authorized [id number] Closed 05/30/2024 08/30/2025 1 1 Encounter Details Date Type Department Care Team (Late st Contact Info) Description 06/07/2024 8:40 AM CDT Office Visit Department of Family Medicine, [facility], in [address] [phone] Char Schaeffer M.D. [address] [place] [phone] Preoperative Exam (Primary Dx); Hypertensive Chronic Kidney [...] drink = 0.6 oz pur e alcohol) [facility] [email or web address] Answer Date Recorded In the past 12 months has play140, oil, or water [employer] threatened to shut off services in your [...] you attend [facility] or adventist services? Patient declined 07/18/2022 Do you belong to any clubs o r organizations such as sikhism groups, unions, fraternal or athletic [...] Answer Date Recorded PHQ-2 Score 0 04/18/2024 [facility] - Occupational Stress Questionnaire Answer Date Recorded [...] your living situation today? I have a [facility] place to live 02/23/2024 Education Answer Date Recorded What is the highest level of school you have completed or the highest degree you have received? 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 The patient verbally consented to an audio recording of their visit to assist with the completion of documentation. History of Present Illness The patient, a 73-year-old individual with a history of hypertension, diabetes, and prostate surgery, presents for a pre-operative physical examination for upcoming cataract surgery with Dr. Farah at [facility] in [place]. First surgery is June 13 and 2nd surgery is June 20. The patient reports no issues with previous anesthesia, blood clots, or bleeding. The patient's blood pressure has been slightly elevated recently, averaging around 160/80s at home. The patient is under the care of a counter top maker. The patient's last A1c in March was [...] on June [address] Farah at [facility]. No anesthesia complications, bleeding issues, or blood clots. No additional concerns reported. No blood work required for cataract surgery. Instructions provided for medication management on the day of surgery. - Send preoperative exam results to [facility] in [place] - Instruct to withhold metformin, diuretic and [...] - Request transfer of colonoscopy records from [facility] and [facility] Follow-up Coordination of lab work and appointments [...] Visit Division of Nephrology and Hypertension in [place], [place] [address] [place] [phone] David Ross M.D. [address] [place] [phone] Scheduled Referrals Name Type Priority Associated Diagnoses Orde r Schedule Primary Care nurse visit (clinic) - [facility] Region; BP check; BP check w/ home device Outpatient Referral Routine Expected: 06/21/2024, Expires: 09/06/2025 documented as of this encounter Results * Sodium (06/23/2024 12:46 PM CDT) Sodium, P 145 135 - 145 mmol/L 06/23/2024 1:17 PM CDT CNFL Blood (Blood, Venous) 06/23/2024 12:46 PM CDT 06/23/2024 12:48 PM CDT Char Felipe M.D. LAB BLOOD ADD-ON Final Result [address] [address], [address] [address] * (ABNORMAL) Potassium (06/23/2024 12:46 PM CDT) Potassium, P 3.0(L) 3.6 - 5.2 mmol/L 06/23/2024 1:17 PM CDT CNCT Blood (Blood, Venous) 06/23/2024 12:46 PM CDT 06/23/2024 12:48 PM CDT us Char Felipe M.D. LAB BLOOD ADD-ON Final Result Performing Organization Address City/[facility]/ZIP Co de Phone Number [address] [address], [place] [facility] in [address] [address] * Creatinine with Estimated GFR (06/23/2024 12:46 PM CDT) Creatinine 1.15 0.74 - 1.35 mg/dL 06/23/2024 1:17 PM CDT CNFL Estimated GFR (eGFR) 67 >=60 mL/min/BSA 06/23/2024 1:17 PM CDT [facility] Comment: Estimated GFR calculated using the 2020 CKD_EPI creatinine equation. Blood (Blood, Venous) 06/23/2024 12:46 PM CDT 06/23/2024 12:48 PM CDT us Char Felipe M.D. LAB BLOOD ADD-ON Final Result [address] [address], [place] [address] [address] documented in this encounter Visit Diagnoses Diagnosis Preoperative Exam- Primary Hypertensive Chronic Kidney Disease With Stage 1 Through Stage 4 Chronic Kidney Disease, Or Unspecified Chronic Kidney Disease Diabetes Mellitus Type 2 Without Complication (HCC) Polyp Colon Adenomatous Personal History documented in this encounter Care Teams Color Corrector Relationship Specialty Start Date End Date Misa Pringle M.D. [id number] [phone] PCP - General Family Medicine 02/25/24 [facility] Skein Dyer 04/18/24 [facility] 04/18/24 documented as of this encounter
--- OUTSIDE RECORDS SUMMARY | 2024-06-30 22:10 | XMS_ITS | Encounter Summary ---
Author Organization [facility] Address [address] [place] [address] Care Team Providers Care Emergency Veterinary Assistant Name Role Phone Misa Pringle M.D. Primary Care Provider +1- [phone] Encounter Details Date Type Department Care Team (Late st Contact Info) Description 06/07/2024 Clinical Communication Department of Family Medicine, [facility], in [address] [phone] Char Schaeffer M.D. [address] [place] [phone] Social History Tobacco Use Types Packs/Day Years Used Date Smoking Tobacco: Former Cigarettes 0.8 13.9 0 03/02/1965 - 01/30/1979 Smokeless Tobacco: Never Alcohol Use Standard Drinks/Week Comments Not Currently 0 (1 standard drink = 0.6 oz pur e alcohol) [facility] Utilities Answer Date Recorded In the [...] How often do you attend chur or jainism services? Patient declined 07/18/2022 Do [...] Answer Date Recorded PHQ-2 Score 0 04/18/2024 [facility] of Occupat ional Health - Occupational Stress [...] your living situation today? I have a [facility] place to live 02/23/2024 Education Answer Date Recorded What is the highest level of school you have completed or the highest degree you have received? 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 [address] [place] [phone] documented as of this encounter Visit Diagnoses Not on filedocumented in this encounter Care Teams Emergency Veterinary Assistant Relationship Specialty Start Date End Date Misa Pringle M.D. [address] [place] [phone] PCP - General Family Medicine 02/25/24 [facility] Charge Loader 04/18/24 [facility] 04/18/24 documented as of this encounter
--- OUTSIDE RECORDS SUMMARY | 2024-06-30 22:10 | XMS_ITS | Clinical Summary ---
Author Organization [facility] Address [address] [place] [address] Care Team Providers Care Superintendent Gas Distribution Name Role Phone Misa Pringle M.D. Primary Care Provider [phone]- [phone] Source Comments Patient records contain information from all sites at [facility]. For routine questions regarding patient records, call [phone] during business hours, M-F 8:00 AM - 5:00 PM Central Time. Record requests for emergency care only can be directed to [phone] at any time.[facility] Allergies No known active allergies Medications [...] 06/27/2024 Results Follow-Up Department of Family Medicine, [facility], [address] [address] Char Schaeffer M.D. Creatinine with Estimated GFR, Potassium, Sodium 06/23/2024 1:00 PM CDT Nurse Only Department of Family Medicine, [facility], [address] [address] Char Schaeffer M.D. Linde, Amy L, L.P.NAlvarez Nurse Visit (BP check with home device) Discharge Disposition: Home or Self Care 06/23/2024 12:30 PM CDT - 06/23/2024 11:59 PM CDT Hospital Encounter Department of Laboratory Medicine in [address] [address] hCar Schaeffer M.D. Hypertensive Chronic Kidney Disease With Stage 1 Through Stage 4 Chronic Kidney Disease, Or Unspecified Chronic Kidney Disease Discharge Disposition: Home or Self Care 06/15/2024 Clinical Communication Department of [facility], [facility], [address] [address] Misa Pringle M.D. OSM - Outside Materials 06/14/2024 Clinical Communication Department of [facility], [facility], [address] [address] Misa Pringle M.D. Med list 06/07/2024 8:40 AM CDT Office Visit Department of Family Medicine, [facility], in [address] [address] Char Schaeffer M.D. Preoperative Exam (Primary Dx); Hypertensive Chronic Kidney Disease With Stage 1 Through Stage 4 Chronic Kidney Disease, Or Unspecified Chronic Kidney Disease; Diabetes Mellitus Type 2 Without Complication (HCC); Polyp Colon Adenomatous Personal History Discharge Disposition: Home or Self Care 06/07/2024 Clinical Communication Department of Family Medicine, [facility], in [address] [address] Char Schaeffer M.D. 05/16/2024 11:00 AM CDT - 05/16/2024 11:59 PM CDT Hospital Encounter Department of Laboratory Medicine in [address] [address] David Ross M.D. Chronic Kidney Disease (CKD), Stage 3a Glomerular Filtration Rate (GFR) 45 To 59 (HCC); Hypertensive Chronic Kidney Disease With Stage 1 Through Stage 4 Chronic Kidney Disease, Or Unspecified Chronic Kidney Disease Discharge Disposition: Home or Self Care 05/16/2024 Results Follow-Up Division of Nephrology and Hypertension in [place], [place] [address] [place] [address] David Ross M.D. Renal Function Panel, Uric Acid 05/12/2024 Orders Only Division of Nephrology and Hypertension in [place], [place] [address] [place] [address] David Ross M.D. 04/25/2024 Results Follow-Up Department of Family Medicine, [facility], in [address] [address] Misa Pringle M.D. US Aorta AAA Screening 04/18/2024 1:00 PM CERTIFIED LACTATION EDUCATOR Office Visit Department of Family Medicine, [facility], in [address] [address] Misa Pringle M.D. Erickson, Brook C, R.N. Annual Medicare Examination Return (Primary Dx) Discharge Disposition: Home or Self Care 04/18/2024 9:00 AM CERTIFIED LACTATION EDUCATOR - 04/18/2024 11:59 PM CERTIFIED LACTATION EDUCATOR Hospital Encounter Department of Radiology in [address] [address] Misa Pringle M.D. Screening Abdominal Aortic Aneurysm Discharge Disposition: Home or Self Care 04/18/2024 Clinical Communication Department of [facility], [facility], in [address] [address] Misa Pringle M.D. Communication (Follow up) 04/04/2024 Orders Only Division of Nephrology and Hypertension in [place] [address] [place] [address] David Ross M.D. Chronic Kidney Disease (CKD), [...] drink = 0.6 oz pur e alcohol) [facility] Utilities Answer Date Recorded In the past 12 months has th e [employer], gas, oil, or water [employer] threatened to shut off services in your [...] How often do you attend chur or taoism services? Patient declined 07/18/2022 Do you belong to any clubs o r organizations such as zoroastrianism groups, unions, fraternal or athletic [...] Date Recorded PHQ-2 Score 0 04/18/2024 [facility] - Occupational Stress Questionnaire Answer Date [...] your living situation today? [facility] 02/23/2024 Education Answer Date Recorded What is the highest level of school you have completed or the highest degree you have received? 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 [address] [place] [address] Health Maintenance Due Date Last Done Comments [...] this topic Medical Devices Implanted Type Area Mill Roll Rewinder Device Identifier Shelf Expiration Date Model / Serial / Lot Clp Hmol Plmr Lg - [id number] Implanted:Qty : 1 on 01/30/2021 by Lenny Gaspar M.D. at [facility] Hardware e.g. pins/screws/ rods [employer] [id number] 10/29/2025 [id number] / / [id number] Clp Hmol Plmr Lg - [id number] Implanted:Qty : 1 on 01/30/2021 by Lenny Gaspar M.D. at [facility] Hardware e.g. pins/screws/ rods [employer] [id number] 09/23/2025 [id number] / / [id number] Clp Hmol Plmr Lg - [id number] Implanted:Qty : 1 on 01/30/2021 by Lenny Gaspar M.D. at [facility] Hardware e.g. pins/screws/ rods [employer] [id number] 10/14/2025 [id number] / / [id number] Clp Hmol Plmr Lg - [id number] Implanted:Qty : 1 on 01/30/2021 by Lenny Gaspar M.D. at [facility] Hardware e.g. pins/screws/ rods [employer] [id number] 10/22/2025 [id number] / / [id number] Clp Hmol Plmr Md - [id number] Implanted:Qty : 1 on 01/30/2021 by Lenny Gaspar M.D. at [facility] Hardware e.g. pins/screws/ rods [employer] [id number] 05/27/2025 [id number] / / [id number] Clp Hmol Plmr Md - [id number] Implanted:Qty : 1 on 01/30/2021 by Lenny Gaspar M.D. at [facility] Hardware e.g. pins/screws/ rods [employer] [id number] 05/21/2025 [id number] / / [id number] Clp Hmol Plmr Md - [id number] Implanted:Qty : 1 on 01/30/2021 by Lenny Gaspar M.D. at [facility] Hardware e.g. pins/screws/ rods [employer] [id number] 09/23/2025 [id number] / / [id number] Clp Hmol Plmr Md - [id number] Implanted:Qty : 1 on 01/30/2021 by Lenny Gaspar M.D. at [facility] Hardware e.g. pins/screws/ rods [employer] [id number] 09/02/2025 [id number] / / [id number] Clp Mark Cheng [id number] Implanted:Qty : 1 on 01/30/2021 by Lenny Gaspar M.D. at [facility] Hardware e.g. pins/screws/ rods [employer] [id number] 09/23/2025 [id number] / / [id number] Clp raina Cheng [id number] Implanted:Qty : 1 on 01/30/2021 by Lenny Gaspar M.D. at [facility] Hardware e.g. pins/screws/ rods [employer] [id number] 05/21/2025 [id number] / / [id number] Procedures Procedure Name Priority Date/Time Associated Diagnosis [...] inpatients and all outpatients) 04/18/2024 9:29 AM CERTIFIED LACTATION EDUCATOR Screening Abdominal Aortic Aneurysm ALBUMIN, RANDOM, U Routine 03/22/2024 11:13 AM CERTIFIED LACTATION EDUCATOR Chronic Kidney Disease (CKD), Stage 3a Glomerular Filtration Rate (GFR) 45 To 59 (HCC) HEMOGLOBIN A1C, B Routine 03/22/2024 11:04 AM CERTIFIED LACTATION EDUCATOR Chronic Kidney Disease (CKD), Stage 3a Glomerular [...] Felipe M.D. LAB BLOOD ADD-ON Final Result [address] [address], [address] [address] * (ABNORMAL) Potassium (06/23/2024 12:46 PM CDT) Potassium, P 3.0(L) 3.6 - 5.2 mmol/L 06/23/2024 1:17 PM CDT [facility] Blood (Blood, Venous) 06/23/2024 12:46 PM CDT 06/23/2024 12:48 PM CDT us Char Felipe M.D. LAB BLOOD ADD-ON Final Result Performing Organization Address [facility] Co de Phone Number [address] [address], [address] [address] * Creatinine with Estimated GFR (06/23/2024 12:46 PM CDT) Creatinine 1.15 0.74 - 1.35 mg/dL 06/23/2024 1:17 PM CDT [facility] Estimated GFR (eGFR) 67 >=60 mL/min/BSA 06/23/2024 1:17 PM CDT [facility] Comment: Estimated GFR calculated using the 2020 CKD_EPI creatinine equation. Blood (Blood, Venous) 06/23/2024 12:46 PM CDT 06/23/2024 12:48 PM CDT us Char Felipe M.D. LAB BLOOD ADD-ON Final Result [address] [address], [address] [address] * EXT ALT (Alanine Aminotransferase) (06/14/2024 9:05 AM CDT) Pathologist [facility] [place] EXT ALT 28 4 - 50 U/L OTHER (SP ECIFY IN JOB ANALYST) Blood (Blood, Venous) 06/14/2024 9:05 AM CDT us Carolynn Romero M.D. LAB BLOOD ADD-ON Final Resul t Performing Organization Address City/[facility]/ZIP Co de Phone Number OTHER (SPECIFY IN JOB ANALYST) N/A * EXT AST (Aspartate Aminotransferase) (06/14/2024 9:05 AM CDT) Pathologist [facility] [place] EXT AST 29 12 - 35 U/L OTHER (S PECIFY IN JOB ANALYST) Blood (Blood, Venous) 06/14/2024 9:05 AM CDT Carolynn Romero M.D. LAB BLOOD ADD-ON Final Resul t Performing Organization Address City/[facility] Co de Phone Number OTHER (SPECIFY IN JOB ANALYST) N/A * (ABNORMAL) EXT Basic Metabolic Panel, Blood (06/14/2024 9:05 AM CDT) [facility] EXT Sodium 141 135 - 149 OTHER (SP ECIFY IN JOB ANALYST) EXT Potassium 3.0 3.6 - 5.1 OTHER (SPECIFY IN JOB ANALYST) EXT Chloride 101 96 - 114 OTHER ( SPECIFY IN JOB ANALYST) EXT CO2 30 20 - 32 OTHER (SPE CIFY IN JOB ANALYST) EXT Anion Gap 10 7 - 15 OTHER (SPECIFY IN JOB ANALYST) EXT BUN (Blood Urea Nitrogen) 18 7 - 30 OTHER (SPECIF Y IN JOB ANALYST) EXT Creatinine 1.2 0.5 - 1.5 OTHER (SPECIFY IN JOB ANALYST) EXT Estimated GFR (eGFR) 63 OTHER (SPECIFY IN JOB ANALYST) EXT Calcium, Total 9.3 8.4 - 10.6 OTHER (SPECIFY IN JOB ANALYST) EXT Glucose 253 60 - 115 OTHER (S PECIFY IN JOB ANALYST) Blood (Blood, Venous) 06/14/2024 9:05 AM CDT Carolynn Romero M.D. LAB BLOOD NON ADD-ON Final R esult Performing Organization Address City/[facility] Co de Phone Number OTHER (SPECIFY IN JOB ANALYST) N/A * EXT Complete Blood Count, Blood (06/14/2024 9:05 AM CDT) EXT Hemoglobin 13.6 13.5 - 17.5 gm/dL OTHER (SPECIFY IN JOB ANALYST) EXT Hematocrit 41.1 37.0 - 53.0 % OTHER (SPECIFY IN JOB ANALYST) EXT RBC 4.48 4.30 - 5.90 m/uL OTHER (SPECIFY IN JOB ANALYST) EXT MCV 92 80 - 100 fL OTHER (SPECIFY IN JOB ANALYST) EXT RDW 11.8 11.5 - 15.5 % OTHER (SPECIFY IN JOB ANALYST) EXT WBC 4.66 4.50 - 11.0 K/uL OTHER (SPECIFY IN JOB ANALYST) EXT Neutrophils 71.6 42.0 - 72.0 % OTHER (SPECIFY IN JOB ANALYST) EXT Lymphocytes 12.2 20 - 44 % OTHE R (SPECIFY IN JOB ANALYST) EXT Monocytes 0.50 0.0 - 0.90 K/uL OTHER (SPECIFY IN JOB ANALYST) EXT Eosinophils 4.5 0.0 - 7.0 % OTHER (SPECIFY IN JOB ANALYST) EXT Basophils 0.6 0.0 - 3.0 % OTHER (SPECIFY IN JOB ANALYST) EXT Platelet Count 232 140 - 440 K//uL OTHER (SPECIFY IN JOB ANALYST) Blood (Blood, Venous) 06/14/2024 9:05 AM CDT Carolynn Romero M.D. LAB BLOOD NON ADD-ON Final R esult Performing Organization Address City/[facility] de Phone Number OTHER (SPECIFY IN JOB ANALYST) N/A * EXT Albumin (06/14/2024) EXT Albumin 4.4 3.3 - 5.0 OTHER (S PECIFY IN JOB ANALYST) Blood (Blood, Venous) 06/14/2024 Historical Provider LAB BLOOD ADD-ON Final Resul t Performing Organization Address City/[facility] Co de Phone Number OTHER (SPECIFY IN JOB ANALYST) N/A * (ABNORMAL) Renal Function Panel (05/16/2024 [...] ADD-ON Final Resu lt Performing Organization Address City/State/[facility] Co de Phone Number [facility] [address] [place] [phone], [facility] CNFL [facility] in [address] [address] * (ABNORMAL) Uric Acid (05/16/2024 11:21 AM CDT) Uric Acid, P 3.4(L) 3.7 - 8.0 mg/dL 05/16/2024 11:41 AM CDT [facility] Blood (Blood, Venous) 05/16/2024 11:21 AM CDT 05/16/2024 11:22 AM CDT us David Ross M.D. LAB BLOOD ADD-ON Final Resu lt [facility] [address] [place] [id number], [facility] in [address] [address] * US Aorta AAA Screening (04/18/2024 9:29 AM CERTIFIED LACTATION EDUCATOR) Anatomical Region Laterality Modality Abdomen, Pelvis, Ultrasound RST LOS, Ultrasound ARZ LOS, Ultrasound FLA LOS, Procedural, Vascular Interventional NWWI LOS N/A Ultrasound Impressions 04/18/2024 9:40 AM CERTIFIED LACTATION EDUCATOR 1. No abdominal aortic aneurysm. 2. 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 Narrative 04/18/2024 9:40 AM CERTIFIED LACTATION EDUCATOR EXAM: US AORTA AAA SCREENING COMPARISON: None [...] (ABNORMAL) Albumin, Random, Urine (03/22/2024 11:13 AM CERTIFIED LACTATION EDUCATOR) Microalbumin 84.6 mg/L 03/22/2024 7:26 PM CERTIFIED LACTATION EDUCATOR RDWG Creatinine 102 mg/dL 03/22/2024 7:26 PM CERTIFIED LACTATION EDUCATOR RDWG Albumin/Creatinin e Ratio 83(H) <17 mg/g 03/22/2024 7:26 PM CERTIFIED LACTATION EDUCATOR RDWG Urine (Urine, Midstream) 03/22/2024 11:13 AM CERTIFIED LACTATION EDUCATOR 03/22/2024 7:03 PM CERTIFIED LACTATION EDUCATOR us David Ross M.D. LAB URINE ORDERABLES Final Result [facility] [address] [place] [address], [facility] RDWG [facility] in [address] [address] * (ABNORMAL) Hemoglobin A1c (03/22/2024 11:04 AM CERTIFIED LACTATION EDUCATOR) Hemoglobin A1c, B 6.8(H) 4.2 - 5.6 % 03/22/2024 11:21 AM CERTIFIED LACTATION EDUCATOR CNFL Comment: Hemoglobin A1c values greater than or equal to 6.5 percent are diagnostic for diabetes mellitus. Diagnosis should be confirmed by repeat testing. In diabetic patients, HbA1c goals should be discussed with healthcare provider. Blood (Blood, Venous) 03/22/2024 11:04 AM CERTIFIED LACTATION EDUCATOR 03/22/2024 11:06 AM CERTIFIED LACTATION EDUCATOR us David Ross M.D. LAB BLOOD ADD-ON Final Resu lt [facility] [address] [place] [phone], [facility] CNFL [facility] in [address] [address] * EXT Lipid Panel, Blood (07/30/2023 9:56 AM CDT) EXT Cholesterol, Total, S 122 OTHER (SPECIFY IN JOB ANALYST) EXT Triglycerides, S 147 OTHER (SPECIFY IN JOB ANALYST) EXT Cholesterol, HDL, S 50 OTHER (SPECIFY IN JOB ANALYST) EXT Calculated LDL 43 OTHER (SPECIFY IN JOB ANALYST) Blood (Blood, Venous) 07/30/2023 9:56 AM CDT us Historical Provider LAB BLOOD NON ADD-ON Final R esult OTHER (SPECIFY IN JOB ANALYST) N/A from Last 3 Months or Most Recently Relevant to Health Maintenance Insurance [facility] MEDICARE Advance Directives For more information, please contact: [phone] Documents on File Type Date Recorded 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 [address] [place] [phone] PCP - General Family Medicine 02/25/24 [facility] Care Navigator 04/18/24 [facility] 04/18/24
--- OUTSIDE RECORDS SUMMARY | 2024-06-30 22:10 | XMS_ITS ---
Author Organization [facility] Address [address] [place] [address] Care Team Providers Care Impregnator And Drier Name Role Phone Misa Pringle M.D. Primary Care Provider +1- [phone] Active Problems * This document contains information [...] Fraction Dose Fractions Total Dose Plans Planned [id number] 09/10/2021 - 09/18/2021 200 cGy 1,400 cGy [id number] 08/05/2021 - 09/09/2021 200 cGy 5 ,000 cGy Reference Points Delivered [id number] 08/05/2021 - 09/18/2021 6,400 cGy Resolved Problems [...]
[2024-06-30 22:55] LABS: Chloride* 106 mmol/L (96-114)
[2024-06-30 22:56] LABS: Basophils Absolute Auto 0.03 K/uL (0.00-0.30); Basophils Percent Auto 0.6 % (0.0-3.0); Eosinophils Absolute Auto 0.24 K/uL (0.00-0.50); Eosinophils Percent Auto 5.1 % (0.0-7.0); Hematocrit 41.4 % (37.0-53.0); Hemoglobin* 13.8 gm/dL (13.5-17.5); Immature Granulocytes Abs Auto 0.06 K/uL (0.00-0.30); Immature Granulocytes Pct Auto 1.3 %; Lymphocytes Percent Auto 14.7 % (20-44); Mean Corpuscular HGB Conc 33 gm/dL (32-36); Mean Corpuscular Hemoglobin 30 pg (26-34); Mean Corpuscular Volume 91 fL (80-100); Monocytes Percent Auto 12.4 % (0.0-11.0); Neutrophils Absolute Auto 3.08 K/uL (1.7-7.0); Neutrophils Percent Auto 65.9 % (42.0-72.0); Platelet Count* 244 K/uL (140-440); RDW Coefficient of Variation % 12.1 % (11.5-15.5); Red Blood Count 4.55 m/uL (4.30-5.90); Sodium* 144 mmol/L (135-149); White Blood Count* 4.68 K/uL (4.50-11.00)
[2024-06-30 22:58] LABS: Blood Urea Nitrogen* 20 mg/dL (7-30); Estimated Glomerular Filt Rate 79 ml/min
[2024-06-30 22:59] LABS: Anion Gap 8 mEq/L (7-15); Calcium* 9.5 mg/dL (8.4-10.6); Carbon Dioxide* 30 mmol/L (20-32); Glucose* 298 mg/dL (60-115); Slide Review Reflex No
== END 2024-06-30 23:11 | disposition home or self-care (01) ==
PROVIDERS: Emergency Provider Emergency Medicine Emergency Medical Services; PCP Family Medicine
DX: R31.9 Hematuria, unspecified (principal)
CPT/HCPCS: 36415; 80048; 81001; 83605; 85025; 87040; 87086; 99283; 99284

== ENCOUNTER 2024-09-21 10:00 | Outpatient (RCR) | payer MEDICARE, BC, SELFPAY ==
[2024-06-14 09:22] LABS: Albumin* 4.4 g/dL (3.3-5.0); Chloride* 101 mmol/L (96-114); Sodium* 141 mmol/L (135-149)
[2024-06-14 09:23] LABS: Potassium* 3.0 mmol/L (3.6-5.1)
[2024-06-14 09:25] LABS: Alanine Aminotransferase* 28 U/L (4-50); Alkaline Phosphatase* 88 U/L (40-150); Anion Gap 10 mEq/L (7-15); Aspartate Amino Transferase* 29 U/L (12-35); Bilirubin Total* 0.4 mg/dL (0.1-1.5); Blood Urea Nitrogen* 18 mg/dL (7-30); Carbon Dioxide* 30 mmol/L (20-32); Creatinine* 1.2 mg/dL (0.5-1.5); Estimated Glomerular Filt Rate 63 ml/min; Total Protein* 7.0 g/dL (6.0-8.3)
[2024-06-14 09:26] LABS: Calcium* 9.3 mg/dL (8.4-10.6); Glucose* 253 mg/dL (60-115)
[2024-06-14 09:29] LABS: Hematocrit* 41.1 % (37.0-53.0); Hemoglobin* 13.6 gm/dL (13.5-17.5); Immature Granulocytes Abs Auto 0.01 K/uL (0.00-0.30); Immature Granulocytes Pct Auto 0.2 %; Mean Corpuscular HGB Conc 33 gm/dL (32-36); Mean Corpuscular Hemoglobin 30 pg (26-34); Mean Corpuscular Volume 92 fL (80-100); RDW Coefficient of Variation % 11.8 % (11.5-15.5); Red Blood Count* 4.48 m/uL (4.30-5.90); White Blood Count* 4.66 K/uL (4.50-11.00)
[2024-06-14 09:52] LABS: Lymphocytes Absolute Auto 0.60 K/uL (0.90-2.90); Slide Review Reflex No
[2024-06-14 11:33] LABS: PSA Diagnostic* < 0.06 ng/mL (0.10-4.00)
--- NOTE | 2024-07-21 13:04 | ONC.NURNOTE ---
Provider appointment was cancelled for 09/19 as patient is to see patient every 6 months, not every 3 months.
--- NOTE | 2024-09-19 11:31 | ONC.NURNOTE ---
left message for Cory to call- was scheduled for lab today
[2024-09-21 10:23] LABS: Hematocrit* 43.3 % (37.0-53.0); Hemoglobin* 14.8 gm/dL (13.5-17.5); Immature Granulocytes Pct Auto 0.2 %; Mean Corpuscular HGB Conc 34 gm/dL (32-36); Mean Corpuscular Hemoglobin 31 pg (26-34); Mean Corpuscular Volume 89 fL (80-100); RDW Coefficient of Variation % 12.2 % (11.5-15.5); Red Blood Count* 4.85 m/uL (4.30-5.90); White Blood Count* 4.06 K/uL (4.50-11.00)
[2024-09-21 10:24] LABS: Immature Granulocytes Abs Auto 0.00 K/uL (0.00-0.30); Lymphocytes Absolute Auto 0.60 K/uL (0.90-2.90); Slide Review Reflex No
[2024-09-21 10:31] LABS: Albumin* 4.3 g/dL (3.3-5.0); Chloride* 105 mmol/L (96-114)
[2024-09-21 10:32] LABS: Potassium* 3.3 mmol/L (3.6-5.1); Sodium* 141 mmol/L (135-149)
[2024-09-21 10:34] LABS: Alanine Aminotransferase* 31 U/L (4-50); Aspartate Amino Transferase* 33 U/L (12-35); Blood Urea Nitrogen* 18 mg/dL (7-30); Creatinine* 0.8 mg/dL (0.5-1.5); Est. Creatinine Clearance* 62.70; Estimated Glomerular Filt Rate 93 ml/min
[2024-09-21 10:35] LABS: Alkaline Phosphatase* 106 U/L (40-150); Anion Gap 7 mEq/L (7-15); Bilirubin Total* 0.4 mg/dL (0.1-1.5); Calcium* 9.6 mg/dL (8.4-10.6); Carbon Dioxide* 29 mmol/L (20-32); Total Protein* 7.0 g/dL (6.0-8.3)
[2024-09-21 10:38] LABS: Glucose* 387 mg/dL (60-115)
--- NOTE | 2024-09-21 10:44 | ONC.NURNOTE ---
Call from lab with critical glucose [id number]. Patient has known history of diabetes. Attempted to reach patient by phone to discuss. I left a voicemail requesting return call to nursing staff to review.
[2024-09-21 11:11] LABS: PSA Diagnostic* < 0.06 ng/mL (0.10-4.00)
--- NOTE | 2024-09-21 12:21 | ONC.NURNOTE ---
lab results reviewed and called to Cory noted critical blood glucose and trend for elevated nonfasting blood sugars patient has appt with Dr Cho next week states he had licorice just prior to lab draw today potassium noted results to be forwarded to Dr matilda TEJEDA unchanged
== END 2024-12-11 23:59 | disposition home or self-care (01) ==
LOC: CCIC 10:00
PROVIDERS: Clinical Nurse Specialist; PCP Family Medicine; Referring Provider Family Medicine; Visit Provider Internal Medicine Hematology & Oncology
DX: C61 Malignant neoplasm of prostate (principal)
CPT/HCPCS: 36415; 80053; 84153; 85025; 99214; G0463